=== PATIENT | male | born 1980 ===

== ENCOUNTER 2020-08-06 12:00 | Inpatient (IN) | payer OTHER, SELFPAY ==
[2020-08-06 12:03] VITALS: BP 148/97; PULSE 89; RESP 18; TEMP 37.6; O2SAT 98; BMI 31.7
--- NOTE | 2020-08-06 12:11 | ECG_ITS ---
Test Reason : EPGASTRIC Blood Pressure : / mmHG Vent. Rate : 082 BPM Atrial Rate : 082 BPM P-R Int : 128 ms QRS Dur : 076 ms QT Int : 364 ms P-R-T Axes : 033 030 012 degrees QTc Int : 425 ms Normal sinus rhythm Normal ECG No previous ECGs available Referred By: Generic ED Physician Electronically Signed By:PRAFUL BONNER MD
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
[2020-08-06 14:16] LABS: MANUAL DIFF FLAG NO
[2020-08-06 14:18] LABS: Basophils Percent Auto 0.3 % (0-2); Eosinophils Absolute Auto 0.1 X10*3/uL (0.0-0.4); Eosinophils Percent Auto 0.4 % (0-4); Glucose Urine UA NEG (NEG); Hematocrit 44.2 % (42-52); Imm Gran Abs Auto 0.07 X10*3/uL (0.00-0.03); Imm Gran Pct Auto 0.5 % (0.0-0.4); Leukocyte Esterase Urine NEG (NEG); Lymphocytes Absolute Auto 1.1 X10*3/uL (1.2-4.9); Lymphocytes Percent Auto 8.3 % (20-40); Mean Corpuscular HGB Conc 36.2 g/dl (31.0-36.0); Mean Corpuscular Hemoglobin 31.9 pg (27.0-33.0); Mean Corpuscular Volume 88.2 fL (80-98); Mean Platelet Volume 9.2 fL (9.4-12.4); Monocytes Absolute Auto 0.7 X10*3/uL (0.1-1.2); Neutrophils Absolute Auto 11.5 X10*3/uL (2.0-8.3); Neutrophils Percent Auto 85.5 % (45-73); Nitrite Urine NEG (NEG); PH 5.5 (5.0-8.0); Platelet Count 224 X10*3/uL (160-400); Red Blood Count 5.01 X10*6/uL (4.60-5.80); Red Cell Distribution Width 11.4 % (11.0-16.0); Specific Gravity - Urine 1.025 (1.005-1.025); Urine Blood NEG (NEG); Urine Ketones 5 MG/DL (NEG); Urine Protein TRACE MG/DL (NEG-TRACE); White Blood Count 13.4 X10*3/uL (4.8-10.8)
[2020-08-06 14:19] LABS: Appearance Urine HAZY; Color Urine YELLOW
[2020-08-06 14:26] LABS: Bacteria Urine TRACE /LPF; Mucus Urine 1+ /LPF; RBC Urine 0-2 /HPF (0); Squamous Epithelial Cell Urine 1+ /LPF; WBC Urine 0-2 /HPF (0-4)
[2020-08-06 14:53] LABS: Troponin-I High Sensitivity < 3.5 ng/L (<3.5-35.0)
[2020-08-06] MEDS: 0.9 % Sodium Chloride 500 ML 1000 ML IV (15:00)
[2020-08-06 15:05] LABS: Alanine Aminotransferase 53 U/L (0-40); Albumin Level 4.9 g/dL (3.5-5.0); Alkaline Phosphatase 96 U/L (39-117); Anion Gap 18 (12-20); Aspartate Amino Transferase 23 U/L (5-37); Bilirubin Total 0.5 mg/dL (0.0-1.0); Blood Urea Nitrogen 15 mg/dL (9-16); Calcium 9.5 mg/dL (8.4-10.2); Carbon Dioxide 23 mmol/L (22-29); Chloride 104 mmol/L (96-108); Creatinine Clr Calc Pharmacy 90.5; Estimated Glomerular Filt Rate > 60; Glucose Random 165 mg/dL (60-115); Potassium 4.5 mmol/l (3.3-5.1); Sodium 140 mmol/L (135-145); Total Protein 7.8 g/dL (6.5-8.0)
[2020-08-06 15:24] LABS: Lipase 491 U/L (8-78)
--- NOTE | 2020-08-06 16:00 | CT_ITS ---
EXAMINATION: CT ABDOMEN AND PELVIS WITH CONTRAST CLINICAL INFORMATION: Abdominal pain. Elevated lipase. COMPARISON: Previous abdominal ultrasound October 2007 TECHNIQUE: Multidetector volumetric images were obtained from the superior aspect of the liver through the pubic symphysis following administration 85 mL of Omnipaque 350 intravenous contrast. Sagittal and coronal reformatted images were obtained on the technologist's workstation. Oral contrast: No This CT examination was performed using dose optimization techniques as appropriate, variously including the following: *Automated exposure control *Adjustment of mA and/or kV according to patient size (this includes techniques or standardized protocols for targeted exams where dose is matched to indication/reason for exam; i.e. extremities or head) *Use of iterative reconstruction technique DLP: 602 mGy-cm FINDINGS: LUNG BASES: The visualized lung bases are unremarkable. LIVER, GALLBLADDER, AND BILIARY TREE: The liver is low in attenuation suggestive of fatty infiltration. No focal liver lesion is seen. The liver is slightly enlarged, right lobe measuring 21 cm in length. The gallbladder is normal-appearing. There is no biliary duct dilatation. PANCREAS: The pancreas enhances normally. There is a fat stranding and small up small amount of fluid seen surrounding the head and body of the pancreas suggestive of mild pancreatitis. No pancreatic duct dilatation or fluid collection is seen. SPLEEN: Unremarkable. ADRENAL GLANDS: Unremarkable. KIDNEYS AND URETERS: There is a small low-attenuation lesion in the lower pole right kidney probably representing a cyst. BLADDER: Unremarkable. GASTROINTESTINAL TRACT: The small and large bowel are unremarkable. The appendix is unremarkable. ABDOMINAL WALL: No significant hernia is appreciated. LYMPH NODES: There are no enlarged lymph nodes. There are small peripancreatic, retroperitoneal and small bowel mesentery lymph nodes. VASCULAR: Unremarkable. PELVIC VISCERA: Unremarkable. OSSEOUS STRUCTURES: Unremarkable. CT/CT abdomen pelvis w con IMPRESSION: Mild pancreatitis. Fatty liver.
[2020-08-06] MEDS: iohexoL 350 MG/ML 100 ML INFUS..BTL 85 ML IV (16:45)
[2020-08-06 17:14] VITALS: BP 167/96; PULSE 86; RESP 12; TEMP 36.6; O2SAT 97
[2020-08-06] MEDS: ondansetron HCL 4 MG/2 ML VIAL IVPUSH ×2 (17:38→21:18)
[2020-08-06] MEDS: Morphine Sulfate 4 MG/ML CARTRIDGE IVPUSH (17:38)
[2020-08-06 18:08] LABS: Triglycerides 2403 mg/dL
[2020-08-06 19:18] VITALS: BP 150/94; PULSE 88; RESP 18; TEMP 36.7; O2SAT 98
[2020-08-06 20:23] LABS: Glucose, Whole Blood 151 mg/dL (60-115)
--- NOTE | 2020-08-06 20:30 | PC.NURSE ---
giovanny tamie stating that principal developer specified to start insulin drip at 2units/hr. [facility] is aware of current poc of 151
[2020-08-06] MEDS: Insulin Regular/NS 100 UNIT/100 ML PLAST..BAG IVCONT (20:34)
[2020-08-06 20:42] LABS: SARS COV2 PCR INHOUSE NEGATIVE (Negative)
--- NOTE | 2020-08-06 20:43 | PC.NURSE ---
pt awake and alert, seated in bed and awaiting transport to ICU. pt has patent IV, Insulin drip started at 2 u/hr, confirmed rate with ER provider.
[2020-08-06] MEDS: Dextrose 5 % 1,000 ML 125 ML IVCONT (21:10)
--- NOTE | 2020-08-06 21:14 | PC.NURSE ---
pt began vomiting 15 minutes after starting insulin drip. D5 infusion now running with insulin drip. will check for PRN zofran orders. still awaiting ICU for report.
--- NOTE | 2020-08-06 21:29 | PC.NURSE ---
vomiting stopped, poc 204
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
[2020-08-06 21:50] LABS: Glucose, Whole Blood 204 mg/dL (60-115)
--- NOTE | 2020-08-06 22:36 | PC.NURSE ---
pt transported to floor by BANDAR Rashid
[2020-08-06 22:46] LABS: Glucose, Whole Blood 197 mg/dL (60-115)
[2020-08-06 22:49] VITALS: BP 158/92; PULSE 92; RESP 16; O2SAT 98
[2020-08-06] MEDS: 0.9 % Sodium Chloride Flush 3 ML SYRINGE IVFLUSH (23:49)
[2020-08-06 23:57] LABS: Glucose, Whole Blood 176 mg/dL (60-115)
[2020-08-07] VITALS (23 sets, daily range): BP systolic 117–154; BP diastolic 66–101; PULSE 86–124; RESP 13–24; TEMP 36.4–37.1; O2SAT 95–98; BMI 31.7
[2020-08-07 01:06] LABS: Glucose, Whole Blood 194 mg/dL (60-115)
[2020-08-07 01:55] LABS: Glucose, Whole Blood 194 mg/dL (60-115)
[2020-08-07 03:15] LABS: Glucose, Whole Blood 205 mg/dL (60-115)
[2020-08-07 04:10] LABS: Glucose, Whole Blood 188 mg/dL (60-115)
[2020-08-07] MEDS: Dextrose 5 % 1,000 ML 125 ML IVCONT ×2 (04:59→12:57)
[2020-08-07 05:01] LABS: MANUAL DIFF FLAG NO
[2020-08-07 05:05] LABS: Glucose, Whole Blood 189 mg/dL (60-115)
[2020-08-07 05:10] LABS: Basophils Percent Auto 0.2 % (0-2); Imm Gran Pct Auto 0.6 % (0.0-0.4); Lymphocytes Absolute Auto 0.8 X10*3/uL (1.2-4.9); Lymphocytes Percent Auto 5.1 % (20-40); Mean Corpuscular HGB Conc 34.9 g/dl (31.0-36.0); Mean Corpuscular Hemoglobin 31.1 pg (27.0-33.0); Mean Platelet Volume 9.3 fL (9.4-12.4); Neutrophils Absolute Auto 14.5 X10*3/uL (2.0-8.3); Neutrophils Percent Auto 88.1 % (45-73); Platelet Count 217 X10*3/uL (160-400); Red Blood Count 4.83 X10*6/uL (4.60-5.80); Red Cell Distribution Width 11.7 % (11.0-16.0); White Blood Count 16.4 X10*3/uL (4.8-10.8)
[2020-08-07 06:16] LABS: Glucose, Whole Blood 181 mg/dL (60-115)
[2020-08-07 07:11] LABS: Glucose, Whole Blood 170 mg/dL (60-115)
[2020-08-07 07:46] LABS: Alanine Aminotransferase 41 U/L (0-40); Albumin Level 4.4 g/dL (3.5-5.0); Alkaline Phosphatase 80 U/L (39-117); Anion Gap 16 (12-20); Aspartate Amino Transferase 16 U/L (5-37); Bilirubin Total 0.6 mg/dL (0.0-1.0); Blood Urea Nitrogen 11 mg/dL (9-16); Calcium 9.1 mg/dL (8.4-10.2); Carbon Dioxide 22 mmol/L (22-29); Chloride 100 mmol/L (96-108); Creatinine Clr Calc Pharmacy 105.3; Estimated Glomerular Filt Rate > 60; Glucose Random 195 mg/dL (60-115); Potassium 3.6 mmol/l (3.3-5.1); Sodium 134 mmol/L (135-145); Total Protein 7.1 g/dL (6.5-8.0); Triglycerides 800 mg/dL
[2020-08-07 07:54] LABS: Lipase 936 U/L (8-78)
[2020-08-07 08:21] LABS: Glucose, Whole Blood 147 mg/dL (60-115)
[2020-08-07] MEDS: amLODIPine Besylate 5 MG TABLET PO (08:26)
[2020-08-07 09:10] LABS: Glucose, Whole Blood 162 mg/dL (60-115)
--- NOTE | 2020-08-07 09:51 | P.PNCC_ITS ---
Subjective Subjective Date of Service: 08/07/20 Interval History: 39-year-old male mild hypertensive presents with abdominal pain and CT scan indicates pancreatitis as well as elevated lipase and apparently hypertriglyceridemia co at 12:00 p.m. and responding well to and IV insulin drip with persistently elevated glucose indicating probability of type 2 diabetes but the lipase has now diminished to 800 and symptoms are resolving Physical Exam Vital Signs: Vital Signs: Vital Signs Temp Pulse Resp BP Pulse Ox 08/07/20 08:46 101 H 15 142/97 H 98 08/07/20 08:26 100 130/91 H 08/07/20 08:00 98.4 F 99 16 130/91 H 97 08/07/20 07:00 106 H 16 154/90 H 97 08/07/20 05:53 100 18 145/95 H 96 08/07/20 05:00 92 16 144/92 H 95 08/07/20 04:00 98.4 F 94 16 126/66 95 08/07/20 03:00 88 16 140/89 H 96 08/07/20 02:00 100 13 151/95 H 98 08/07/20 01:48 88 14 128/71 95 08/07/20 01:00 103 H 17 128/71 97 08/07/20 00:00 98.5 F 86 18 146/94 H 96 08/06/20 22:49 92 16 158/92 H 98 08/06/20 19:18 98.0 F 88 18 150/94 H 98 08/06/20 17:14 97.8 F 86 12 167/96 H 97 08/06/20 12:03 99.6 F 89 18 148/97 H 98 Body Mass Index 31.7 Const: Other: awake alert with good cognitive function nonfocal neurologic skin is clear with no wounds no acrocyanosis abdomen relatively benign no guarding no rebound no organomegaly good bilateral carotid upstrokes and no neck vein distension cardiac exam with normal S1 normal S2 and no gallops or murmurs chest percussed equally with no clinical pleural effusion and no adventitious sounds Objective Data Labs CBC & Chem 7: 08/07/20 04:18 08/07/20 04:18 Labs: Laboratory Results - last 24 hr 08/06/20 08/06/20 08/06/20 14:08 14:08 14:08 WBC 13.4 H RBC 5.01 Hgb 16.0 Hct 44.2 MCV 88.2 MCH 31.9 MCHC 36.2 H RDW 11.4 Plt Count 224 MPV 9.2 L Immature Gran % (Auto) 0.5 H Neut % (Auto) 85.5 H Lymph % (Auto) 8.3 L [place] % (Auto) 5.0 Eos % (Auto) 0.4 Baso % (Auto) 0.3 Lymph # (Auto) 1.1 L [place] # (Auto) 0.7 Eos # (Auto) 0.1 Baso # (Auto) 0.0 Abs Immat Gran (auto) 0.07 H Absolute Neuts (auto) 11.5 H Absolute Nucleated RBC 0.000 Nucleated RBC % (auto) 0.0 Sodium 140 Potassium 4.5 Chloride 104 Carbon Dioxide 23 Anion Gap 18 BUN 15 Creatinine 1.07 Estim Creat Clear Calc 90.5 Estimated GFR > 60 POC Glucose Random Glucose 165 H Calcium 9.5 Total Bilirubin 0.5 AST 23 ALT 53 H Alkaline Phosphatase 96 Troponin I High Sens Total Protein 7.8 Albumin 4.9 Triglycerides 2403 Lipase 491 H Urine Color Urine Appearance Urine pH Ur Specific [place] Urine Protein Urine Glucose (UA) Urine Ketones Urine Blood Urine Nitrite Ur Leukocyte Esterase Urine RBC Urine WBC Ur Squamous Epith Cells Urine Bacteria Urine Mucus Coronavirus (PCR) 08/06/20 08/06/20 08/06/20 14:08 14:08 19:37 WBC RBC Hgb Hct MCV MCH MCHC RDW Plt Count MPV Immature Gran % (Auto) Neut % (Auto) Lymph % (Auto) [place] % (Auto) Eos % (Auto) Baso % (Auto) Lymph # (Auto) [place] # (Auto) Eos # (Auto) Baso # (Auto) Abs Immat Gran (auto) Absolute Neuts (auto) Absolute Nucleated RBC Nucleated RBC % (auto) Sodium Potassium Chloride Carbon Dioxide Anion Gap BUN Creatinine Estim Creat Clear Calc Estimated GFR POC Glucose Random Glucose Calcium Total Bilirubin AST ALT Alkaline Phosphatase Troponin I High Sens < 3.5 Total Protein Albumin Triglycerides Lipase Urine Color YELLOW Urine Appearance HAZY Urine pH 5.5 Ur Specific [place] 1.025 Urine Protein TRACE Urine Glucose (UA) NEG Urine Ketones 5 Urine Blood NEG Urine Nitrite NEG Ur Leukocyte Esterase NEG Urine RBC 0-2 Urine WBC 0-2 Ur Squamous Epith Cells 1+ Urine Bacteria TRACE Urine Mucus 1+ Coronavirus (PCR) NEGATIVE 08/06/20 08/06/20 08/06/20 20:20 21:26 22:42 WBC RBC Hgb Hct MCV MCH MCHC RDW Plt Count MPV Immature Gran % (Auto) Neut % (Auto) Lymph % (Auto) [place] % (Auto) Eos % (Auto) Baso % (Auto) Lymph # (Auto) [place] # (Auto) Eos # (Auto) Baso # (Auto) Abs Immat Gran (auto) Absolute Neuts (auto) Absolute Nucleated RBC Nucleated RBC % (auto) Sodium Potassium Chloride Carbon Dioxide Anion Gap BUN Creatinine Estim Creat Clear Calc Estimated GFR POC Glucose 151 H 204 H 197 H Random Glucose Calcium Total Bilirubin AST ALT Alkaline Phosphatase Troponin I High Sens Total Protein Albumin Triglycerides Lipase Urine Color Urine Appearance Urine pH Ur Specific [place] Urine Protein Urine Glucose (UA) Urine Ketones Urine Blood Urine Nitrite Ur Leukocyte Esterase Urine RBC Urine WBC Ur Squamous Epith Cells Urine Bacteria Urine Mucus Coronavirus (PCR) 08/06/20 08/07/20 08/07/20 23:45 01:02 01:50 WBC RBC Hgb Hct MCV MCH MCHC RDW Plt Count MPV Immature Gran % (Auto) Neut % (Auto) Lymph % (Auto) [place] % (Auto) Eos % (Auto) Baso % (Auto) Lymph # (Auto) [place] # (Auto) Eos # (Auto) Baso # (Auto) Abs Immat Gran (auto) Absolute Neuts (auto) Absolute Nucleated RBC Nucleated RBC % (auto) Sodium Potassium Chloride Carbon Dioxide Anion Gap BUN Creatinine Estim Creat Clear Calc Estimated GFR POC Glucose 176 H 194 H 194 H Random Glucose Calcium Total Bilirubin AST ALT Alkaline Phosphatase Troponin I High Sens Total Protein Albumin Triglycerides Lipase Urine Color Urine Appearance Urine pH Ur Specific [place] Urine Protein Urine Glucose (UA) Urine Ketones Urine Blood Urine Nitrite Ur Leukocyte Esterase Urine RBC Urine WBC Ur Squamous Epith Cells Urine Bacteria Urine Mucus Coronavirus (PCR) 08/07/20 08/07/20 08/07/20 03:09 04:01 04:18 WBC 16.4 H RBC 4.83 Hgb 15.0 Hct 43.0 MCV 89.0 MCH 31.1 MCHC 34.9 RDW 11.7 Plt Count 217 MPV 9.3 L Immature Gran % (Auto) 0.6 H Neut % (Auto) 88.1 H Lymph % (Auto) 5.1 L [place] % (Auto) 6.0 Eos % (Auto) 0.0 Baso % (Auto) 0.2 Lymph # (Auto) 0.8 L [place] # (Auto) 1.0 Eos # (Auto) 0.0 Baso # (Auto) 0.0 Abs Immat Gran (auto) 0.10 H Absolute Neuts (auto) 14.5 H Absolute Nucleated RBC 0.000 Nucleated RBC % (auto) 0.0 Sodium Potassium Chloride Carbon Dioxide Anion Gap BUN Creatinine Estim Creat Clear Calc Estimated GFR POC Glucose 205 H 188 H Random Glucose Calcium Total Bilirubin AST ALT Alkaline Phosphatase Troponin I High Sens Total Protein Albumin Triglycerides Lipase Urine Color Urine Appearance Urine pH Ur Specific [place] Urine Protein Urine Glucose (UA) Urine Ketones Urine Blood Urine Nitrite Ur Leukocyte Esterase Urine RBC Urine WBC Ur Squamous Epith Cells Urine Bacteria Urine Mucus Coronavirus (PCR) 08/07/20 08/07/20 08/07/20 04:18 04:58 06:10 WBC RBC Hgb Hct MCV MCH MCHC RDW Plt Count MPV Immature Gran % (Auto) Neut % (Auto) Lymph % (Auto) [place] % (Auto) Eos % (Auto) Baso % (Auto) Lymph # (Auto) [place] # (Auto) Eos # (Auto) Baso # (Auto) Abs Immat Gran (auto) Absolute Neuts (auto) Absolute Nucleated RBC Nucleated RBC % (auto) Sodium 134 L Potassium 3.6 Chloride 100 Carbon Dioxide 22 Anion Gap 16 BUN 11 Creatinine 0.92 Estim Creat Clear Calc 105.3 Estimated GFR > 60 POC Glucose 189 H 181 H Random Glucose 195 H Calcium 9.1 Total Bilirubin 0.6 AST 16 ALT 41 H Alkaline Phosphatase 80 Troponin I High Sens Total Protein 7.1 Albumin 4.4 Triglycerides 800 Lipase 936 H Urine Color Urine Appearance Urine pH Ur Specific [place] Urine Protein Urine Glucose (UA) Urine Ketones Urine Blood Urine Nitrite Ur Leukocyte Esterase Urine RBC Urine WBC Ur Squamous Epith Cells Urine Bacteria Urine Mucus Coronavirus (PCR) 08/07/20 08/07/20 08/07/20 07:09 08:17 09:06 WBC RBC Hgb Hct MCV MCH MCHC RDW Plt Count MPV Immature Gran % (Auto) Neut % (Auto) Lymph % (Auto) [place] % (Auto) Eos % (Auto) Baso % (Auto) Lymph # (Auto) [place] # (Auto) Eos # (Auto) Baso # (Auto) Abs Immat Gran (auto) Absolute Neuts (auto) Absolute Nucleated RBC Nucleated RBC % (auto) Sodium Potassium Chloride Carbon Dioxide Anion Gap BUN Creatinine Estim Creat Clear Calc Estimated GFR POC Glucose 170 H 147 H 162 H Random Glucose Calcium Total Bilirubin AST ALT Alkaline Phosphatase Troponin I High Sens Total Protein Albumin Triglycerides Lipase Urine Color Urine Appearance Urine pH Ur Specific [place] Urine Protein Urine Glucose (UA) Urine Ketones Urine Blood Urine Nitrite Ur Leukocyte Esterase Urine RBC Urine WBC Ur Squamous Epith Cells Urine Bacteria Urine Mucus Coronavirus (PCR) Progress Note: A&P Assessment and plan (1) HTN (hypertension): Status: Acute (2) BRENDON (acute kidney injury): Status: Acute (3) Hypertriglyceridemia: Status: Acute (4) Acute pancreatitis: Problem details: Plan 1.Acute pancreatitis with Hypertriglyceridemia- triglycerides elevated to 2400, lipase is also elevated to [address] showing mild pancreatitis. Patient denies excessive alcohol consumption states he only drinks socially, his LFTs were not significantly elevated. TSH was within normal limits. He is only on amlodipine and fluoxetine for medications, and he is not a diabetic. Unsure as to cause for this acute hypertriglyceridemia. Will continue the insulin protocol. Will hold fluoxetine in case it might have an effect on the triglycerides. Continue to monitor liver function and triglycerides levels. Possible GI consultation in the am BRENDON- most likely related to hypoperfusion, nonoliguric. Continue IV fluid. Continue to check renal induces and urine output Leukocytosis - patient is afebrile, no abnormalities in vital signs, no evidence of acute infection. Will continue to monitor CBC closely. Diet: NPO with sips of water ice chips Critical care time: 60x minutes of critical care time CODE: FULL Status: Acute Assessment and Plan: so the plan is to continue with IV insulin drip until triglycerides are below 500 and then early latter day of diet which will graduate as tolerated and will initiate a statin drug tonight in follow-up we might need the addition of fenofibrate will probably need the diabetic diet Time Spent With Patient Time: Total time spent is greater than 50% in coordination of care (as documented) at patient's floor/unit and/or counseling patient: Total time spent with greater than 50% in coordination of care (as documented) at patient's floor/unit and/or counseling patient:: 30
[2020-08-07 10:17] LABS: Glucose, Whole Blood 167 mg/dL (60-115)
[2020-08-07 11:41] LABS: Glucose, Whole Blood 145 mg/dL (60-115)
[2020-08-07 12:11] LABS: Glucose, Whole Blood 153 mg/dL (60-115)
[2020-08-07] MEDS: Acetaminophen 325 MG TABLET 650 MG PO (13:51)
--- NOTE | 2020-08-07 14:21 | MHC.CM.PN ---
Met with pt to verify demographic information and discuss d/c planning. Pt has a slight delay with information processing and response secondary to TBI. States he resides at home with his mother who is his primary adult day care worker and provider of transportation but also has [employer] services from other family members as well as what sounds like, [facility] RN visits. Pt requests that this CM contact his mother for specific/detailed information Message left for both pt's mother and sister Jones at numbers in [employer] to confirm above as well as to inquire on the availability of his HCP. CM to follow for d/c planning.
[2020-08-07 14:26] LABS: Glucose, Whole Blood 138 mg/dL (60-115)
[2020-08-07 15:11] LABS: Glucose, Whole Blood 129 mg/dL (60-115)
[2020-08-07 16:03] LABS: Glucose, Whole Blood 123 mg/dL (60-115)
[2020-08-07] MEDS: 0.9 % Sodium Chloride Flush 3 ML SYRINGE IVFLUSH (16:04)
[2020-08-07 16:57] LABS: Glucose, Whole Blood 117 mg/dL (60-115)
[2020-08-07 17:59] LABS: Glucose, Whole Blood 130 mg/dL (60-115)
[2020-08-07 18:09] LABS: Triglycerides 441 mg/dL
[2020-08-07] MEDS: Dextrose 5 % and Lactated Ring 1,000 ML 80 ML IVCONT (21:08)
[2020-08-07] MEDS: Atorvastatin Calcium 80 MG TABLET PO (21:08)
[2020-08-07] MEDS: Enoxaparin Sodium 40 MG/0.4 ML SYRINGE SUBCUT (21:09)
[2020-08-07 21:30] LABS: Glucose, Whole Blood 130 mg/dL (60-115)
[2020-08-08] VITALS (7 sets, daily range): BP systolic 147–155; BP diastolic 69–100; PULSE 89–110; RESP 16–19; TEMP 36.4–36.8; O2SAT 95–98
[2020-08-08 06:52] LABS: Estimated Average Glucose 134 mg/dL; Hemoglobin A1c % 6.3 %
[2020-08-08 07:56] LABS: Glucose, Whole Blood 157 mg/dL (60-115)
[2020-08-08 09:06] LABS: MANUAL DIFF FLAG NO
[2020-08-08 09:22] LABS: Basophils Percent Auto 0.3 % (0-2); Eosinophils Absolute Auto 0.2 X10*3/uL (0.0-0.4); Eosinophils Percent Auto 1.4 % (0-4); Hematocrit 41.9 % (42-52); Hemoglobin 14.5 g/dl (14.0-18.0); Imm Gran Abs Auto 0.07 X10*3/uL (0.00-0.03); Imm Gran Pct Auto 0.6 % (0.0-0.4); Lymphocytes Absolute Auto 0.8 X10*3/uL (1.2-4.9); Mean Corpuscular HGB Conc 34.6 g/dl (31.0-36.0); Mean Corpuscular Hemoglobin 31.4 pg (27.0-33.0); Mean Corpuscular Volume 90.7 fL (80-98); Mean Platelet Volume 9.3 fL (9.4-12.4); Monocytes Absolute Auto 0.9 X10*3/uL (0.1-1.2); Monocytes Percent Auto 7.4 % (2-11); Neutrophils Absolute Auto 9.7 X10*3/uL (2.0-8.3); Neutrophils Percent Auto 83.3 % (45-73); Platelet Count 172 X10*3/uL (160-400); Red Blood Count 4.62 X10*6/uL (4.60-5.80); Red Cell Distribution Width 11.9 % (11.0-16.0); White Blood Count 11.7 X10*3/uL (4.8-10.8)
[2020-08-08] MEDS: Dextrose 5 % and Lactated Ring 1,000 ML 80 ML IVCONT (09:39)
[2020-08-08] MEDS: amLODIPine Besylate 5 MG TABLET PO (09:39)
[2020-08-08 09:45] LABS: Anion Gap 12 (12-20); Blood Urea Nitrogen 10 mg/dL (9-16); Calcium 8.8 mg/dL (8.4-10.2); Carbon Dioxide 27 mmol/L (22-29); Chloride 102 mmol/L (96-108); Estimated Glomerular Filt Rate > 60; Glucose Random 158 mg/dL (60-115); Potassium 3.9 mmol/l (3.3-5.1); Sodium 137 mmol/L (135-145)
[2020-08-08 10:07] LABS: Thyroid Stimulating Hormone 1.24 mIU/mL (0.32-4.0)
[2020-08-08 11:59] LABS: Glucose, Whole Blood 151 mg/dL (60-115)
--- NOTE | 2020-08-08 13:52 | MHC.CLN ---
RE:CONSULT COMPLETED FOR DM AND PANCREATITIS SEE TEACHING RECORD
--- NOTE | 2020-08-08 15:52 | MHC.CM.PN ---
Pt being discharged today, home with no services
[2020-08-08 16:07] LABS: Glucose, Whole Blood 116 mg/dL (60-115)
[2020-08-08 16:51] LABS: Lipase 267 U/L (8-78)
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
== END 2020-08-08 20:00 | disposition home or self-care (01) | DRG 440 ==
LOC: HO.ED 19:52 → HO.ICU 20:14 → HO.S3 08-07 18:44
PROVIDERS: Nurse Practitioner Primary Care; Registered Nurse Community Health; Admitting Provider Internal Medicine Cardiovascular Disease; Emergency Provider Internal Medicine; PCP Family Medicine; Visit Provider Hospitalist
DX: K85.00 Idiopathic acute pancreatitis without necrosis or infection (principal); I10 Essential (primary) hypertension; F32.9 Major depressive disorder, single episode, unspecified; Z20.828 Contact with and (suspected) exposure to other viral communicable diseases; E78.1 Pure hyperglyceridemia; Z87.820 Personal history of traumatic brain injury; R73.03 Prediabetes; Z79.899 Other long term (current) drug therapy
CPT/HCPCS: 36415; 74177; 80048; 80053; 81001; 82947; 83036; 83690; 84443; 84478; 84484; 85025; 87635; 93005; 96374; 96375; 99283; 99285; J1650; J2270; J2405; Q9967

== ENCOUNTER → 2020-11-05 09:49 | Outpatient (BNVA) | payer OTHER, SELFPAY | PROVIDERS: PCP Family Medicine; Visit Provider Internal Medicine Endocrinology, Diabetes & Metabolism | DX: E78.1 Pure hyperglyceridemia (principal); R73.03 Prediabetes; E66.9 Obesity, unspecified | CPT/HCPCS: 99202 ==

== ENCOUNTER 2020-11-05 11:00 | Outpatient (REF) | payer OTHER, SELFPAY ==
[2020-11-05 13:55] LABS: Estimated Average Glucose 140 mg/dL; Hemoglobin A1c % 6.5 %
[2020-11-05 14:27] LABS: Cholesterol 148 mg/dL; HDL Cholesterol 28 mg/dL; LDL Cholesterol Calculated 56 mg/dl; Triglycerides 322 mg/dL
[2020-11-06 07:57] LABS: LDL Cholesterol Direct 83 mg/dL (<100)
[2020-11-10 06:32] LABS: Lipoprotein A <10 nmol/L (<75)
[2020-11-12 13:58] LABS: Apolipoprotein B 83 mg/dL (<90)
== END 2020-11-05 11:01 | disposition home or self-care (01) ==
LOC: HO.10HDL 11:00
PROVIDERS: Visit Provider Internal Medicine Endocrinology, Diabetes & Metabolism
DX: E78.1 Pure hyperglyceridemia (principal); R73.03 Prediabetes
CPT/HCPCS: 36415; 80061; 82172; 83036; 83695; 83721

== ENCOUNTER 2020-12-04 14:24 | Outpatient (REF) | payer OTHER, SELFPAY | END 2020-12-04 14:25 | disposition home or self-care (01) | LOC: HO.LAB 14:24 | PROVIDERS: Visit Provider Internal Medicine | DX: Z20.822 Contact with and (suspected) exposure to COVID-19 (principal) | CPT/HCPCS: 36415; C9803; U0003; U0005 ==

== ENCOUNTER 2020-12-12 13:31 | Outpatient (REF) | payer OTHER, SELFPAY | END 2020-12-12 13:32 | disposition home or self-care (01) | LOC: HO.LAB 13:31 | PROVIDERS: Visit Provider Internal Medicine | DX: Z20.822 Contact with and (suspected) exposure to COVID-19 (principal) | CPT/HCPCS: 36415; C9803; U0003; U0005 ==

== ENCOUNTER → 2021-02-04 10:06 | Outpatient (BNVA) | payer OTHER, SELFPAY | PROVIDERS: Visit Provider Internal Medicine Endocrinology, Diabetes & Metabolism | DX: E78.1 Pure hyperglyceridemia (principal); E66.9 Obesity, unspecified; R73.03 Prediabetes | CPT/HCPCS: 99212 ==

== ENCOUNTER 2021-02-04 10:52 | Outpatient (REF) | payer OTHER, SELFPAY ==
[2021-02-04 14:25] LABS: Estimated Average Glucose 131 mg/dL; Hemoglobin A1c % 6.2 %
[2021-02-04 14:48] LABS: Cholesterol 221 mg/dL; HDL Cholesterol 24 mg/dL
[2021-02-04 15:45] LABS: Triglycerides 1259 mg/dL
[2021-02-05 06:52] LABS: LDL Cholesterol Direct 55 mg/dL (<100)
== END 2021-02-04 10:53 | disposition home or self-care (01) ==
LOC: HO.10HDL 10:52
PROVIDERS: Visit Provider Internal Medicine Endocrinology, Diabetes & Metabolism
DX: E78.1 Pure hyperglyceridemia (principal); R73.03 Prediabetes
CPT/HCPCS: 36415; 80061; 83036; 83721

== ENCOUNTER 2021-02-25 11:52 | Outpatient (REF) | payer OTHER, SELFPAY | END 2021-02-25 11:53 | disposition home or self-care (01) | LOC: HO.LAB 11:52 | PROVIDERS: Visit Provider Internal Medicine | DX: Z20.822 Contact with and (suspected) exposure to COVID-19 (principal) | CPT/HCPCS: C9803; U0003; U0005 ==

== ENCOUNTER 2021-06-24 15:06 | Emergency (ER) | payer OTHER, SELFPAY ==
[2021-06-24 15:23] VITALS: BP 153/94; PULSE 89; RESP 16; TEMP 36.9; O2SAT 98; BMI 30.9
[2021-06-24 15:41] LABS: MANUAL DIFF FLAG NO
[2021-06-24 15:45] LABS: Basophils Percent Auto 0.3 % (0-2); Eosinophils Absolute Auto 0.1 X10*3/uL (0.0-0.4); Eosinophils Percent Auto 1.2 % (0-4); Hematocrit 41.5 % (42-52); Hemoglobin 15.1 g/dl (14.0-18.0); Imm Gran Abs Auto 0.05 X10*3/uL (0.00-0.03); Imm Gran Pct Auto 0.5 % (0.0-0.4); Lymphocytes Absolute Auto 1.6 X10*3/uL (1.2-4.9); Lymphocytes Percent Auto 15.4 % (20-40); Mean Corpuscular HGB Conc 36.4 g/dl (31.0-36.0); Mean Corpuscular Hemoglobin 31.6 pg (27.0-33.0); Mean Corpuscular Volume 86.8 fL (80-98); Mean Platelet Volume 9.1 fL (9.4-12.4); Monocytes Absolute Auto 0.7 X10*3/uL (0.1-1.2); Monocytes Percent Auto 6.4 % (2-11); Neutrophils Absolute Auto 7.9 X10*3/uL (2.0-8.3); Neutrophils Percent Auto 76.2 % (45-73); Platelet Count 220 X10*3/uL (160-400); Red Blood Count 4.78 X10*6/uL (4.60-5.80); Red Cell Distribution Width 11.5 % (11.0-16.0); White Blood Count 10.3 X10*3/uL (4.8-10.8)
[2021-06-24 15:56] LABS: Prothrombin Time 11.6 SEC (9.9-13.0)
[2021-06-24 16:00] VITALS: BP 165/96; PULSE 76; RESP 16; TEMP 36.7; O2SAT 99
[2021-06-24 16:11] LABS: Alanine Aminotransferase 38 U/L (0-40); Albumin Level 4.5 g/dL (3.5-5.0); Alkaline Phosphatase 93 U/L (39-117); Anion Gap 13 (12-20); Aspartate Amino Transferase 20 U/L (5-37); Bilirubin Total 0.6 mg/dL (0.0-1.0); Blood Urea Nitrogen 15 mg/dL (9-16); Calcium 9.8 mg/dL (8.4-10.2); Carbon Dioxide 25 mmol/L (22-29); Chloride 105 mmol/L (96-108); Creatinine Clr Calc Pharmacy 89.3; Estimated Glomerular Filt Rate > 60; Glucose Random 172 mg/dL (60-115); Magnesium 2.1 mg/dL (1.6-2.6); Potassium 4.3 mmol/L (3.3-5.1); Sodium 139 mmol/L (135-145)
--- NOTE | 2021-06-24 16:11 | ED_ITS ---
HPI - General Adult General Chief complaint: General Medical Stated complaint: high blood pressure Time Seen by Provider: 06/24/21 15:28 Source: patient Mode of arrival: ambulatory Limitations: no limitations History of Present Illness HPI narrative: 40-year-old male who presents to the emergency department for evaluation of abdominal pain vomiting and elevated blood pressure. Patient states that he woke up this morning with abdominal pain and vomiting. He points to his epigastric area when asked to localize the pain. He describes the pain as a vague in ?pain ?. The pain is constant. The pain is moderate in intensity. He states he has had similar pain in the past. Patient also had nausea and vomited 3 times, he denied any blood in the emesis. The patient states that he checked his blood pressure was high and he was concerned about his symptoms and is high blood pressure therefore came to the emergency department for evaluation. The patient states he does get heartburn symptoms occasionally. He states that he does drink alcohol and he did drink over the weekend. He denied fever, chills, chest pain, shortness of breath, lightheadedness, dizziness, myalgias, arthralgias or changes bowel movements. Related Data Home Medications Medication Instructions Recorded Confirmed amlodipine 5 mg tablet 5 mg PO DAILY 08/06/20 02/04/21 fluoxetine 20 mg capsule 20 mg PO DAILY 08/06/20 02/04/21 blood sugar diagnostic #10 ea 02/04/21 lancets 33 gauge #100 ea 02/04/21 Previous Rx's Medication Instructions Recorded atorvastatin 80 mg tablet 80 mg PO BEDTIME 30 Days #30 tab 02/04/21 omega-3 fatty acids-fish oil 340 2 cap PO BID 30 Days #120 cap 02/04/21 mg-1,000 mg capsule (Fish Oil) fenofibrate 160 mg tablet 160 mg PO DAILY 30 Days #30 tab 02/05/21 omeprazole 20 mg tablet,delayed 20 mg PO DAILY #30 tab 06/24/21 release ondansetron 4 mg disintegrating 4 mg PO Q6-8H PRN #14 tab 06/24/21 tablet Allergies Allergy/AdvReac Type Severity Reaction Status Date / Time No Known Allergies Allergy Verified 08/06/20 12:02 Review of Systems Review of Systems: Yes all other systems are reviewed and are negative PMFSH Past Medical History [facility] Narrative: Social history: He denies tobacco use. He denies drug use. He occasionally drinks alcohol and he did drink alcohol over the weekend. Medical History History of traumatic brain injury HTN (hypertension) Obesity (BMI 30-39.9) Prediabetes Surgical History No pertinent past surgical history Family History Family History Father No problems noted. Mother No problems noted. Social History Social History Household Members: Family Household Members Other:: lives with family Advance Directives: No Advance Directives Information Provided: Yes service: No Current occupational status: unemployed and disabled Current occupation: and disability Physical Exam Vital Signs: Vital Signs: Last Vital Signs Temp 98.4 F 06/24/21 15:23 Pulse 89 06/24/21 15:23 Resp 16 06/24/21 15:23 BP 153/94 H 06/24/21 15:23 Pulse Ox 98 06/24/21 15:23 Body Mass Index 30.9 Const: General: cooperative and no acute distress Orientation/consciousness: oriented to person and oriented to place Limitations: no limitations HENMT: Head: Yes normal to inspection, Yes normocephalic and Yes atraumatic Ears: external ears normal General nose exam: Normal external nose present Face and sinus: Yes normal facial exam Mouth: Normal oral and palatal mucosa present Throat: Yes posterior oropharynx normal Eyes: General: appearance normal, both eyes and all related structures Pupi ls: Equal, round and reactive pupils present Neck: Neck: Yes normal visual inspection, Yes no lymphadenopathy, Yes trachea midline and Yes supple Chest: Chest palpation & inspection: normal inspection of the chest and normal palpation of entire chest wall Resp: Effort & Inspection: normal respiratory effort and able to speak in complete sentences Auscultation: clear to auscultation bilaterally Cardio: Rate: regular rate Rhythm: regular rhythm Heart sounds: S1 normal heart sound present, S2 normal heart sound present and no murmurs GI: Inspection: Yes normal to inspection Palpation (GI): Soft to palpation, Tenderness to palpation present (GI) in the epigastrum (Moderate) and no guarding Auscultation: normal bowel sounds : General: Yes no CVA tenderness Back/Spine/Pelvis: Back: no CVA tenderness Skin: General skin exam: no rashes or lesions noted Neuro: General: oriented to person and oriented to place Cranial nerves: Yes CN's II-XII intact bilaterally and Yes Equal, round and reactive pupils present Cognition (Neuro): normal cognition Motor exam (neuro): 5/5 motor strength present throughout Extrem: General: Yes normal to inspection Psych: Appearance: grossly normal Speech and movement: Normal speech and movement present Affect: normal affect Attitude: cooperative Thought process: Normal thought process present Thought content: Normal thought content present Course Course Course Narrative: 40-year-old male who presents emergency department for evaluation of abdominal pain, vomiting and elevated blood pressure. Vital signs revealed an elevated blood pressure of 153/94 otherwise were unremarkable. The patient's physical examination did reveal tenderness with palpation of his epigastric area otherwise was unremarkable. The patient does have essential hypertension takes Norvasc. The patient presentation is consistent with gastritis, possibly secondary to his alcohol use. I did discuss this with him. Patient was started on omeprazole 20 mg once a day for 1 month. He is also given a prescription for Zofran for nausea and vomiting. Patient was discharged home. Patient was given printed and verbal instructions. Patient was advised to follow-up with his PCP in 2 days and return to emergency department if sympto ms get worse or if he develops any new symptoms that are concerning to him. Medical Decision Making Lab Data Result diagrams: 06/24/21 15:32 06/24/21 15:32 Labs: Lab Results 06/24/21 06/24/21 06/24/21 Range/Units 15:32 15:32 15:32 WBC (4.8-10.8) X10*3/uL RBC (4.60-5.80) X10*6/uL Hgb (14.0-18.0) g/dl Hct (42-52) % MCV (80-98) fL MCH (27.0-33.0) pg MCHC (31.0-36.0) g/dl RDW (11.0-16.0) % Plt Count (160-400) X10*3/uL MPV (9.4-12.4) fL Immature Gran % (Auto) (0.0-0.4) % Neut % (Auto) (45-73) % Lymph % (Auto) (20-40) % [place] % (Auto) (2-11) % Eos % (Auto) (0-4) % Baso % (Auto) (0-2) % Lymph # (Auto) (1.2-4.9) X10*3/uL [place] # (Auto) (0.1-1.2) X10*3/uL Eos # (Auto) (0.0-0.4) X10*3/uL Baso # (Auto) (0.0-0.2) X10*3/uL Abs Immat Gran (auto) (0.00-0.03) X10*3/uL Absolute Neuts (auto) (2.0-8.3) X10*3/uL Absolute Nucleated RBC (0.0-0.012) X10*3/uL Nucleated RBC % (auto) (0.0-0.2) /100WBC Hold Purple Top SEE NOTE PT 11.6 (9.9-13.0) SEC INR 1.0 (0.9-1.1) Sodium 139 (135-145) mmol/L Potassium 4.3 (3.3-5.1) mmol/L Chloride 105 (96-108) mmol/L Carbon Dioxide 25 (22-29) mmol/L Anion Gap 13 (12-20) BUN 15 (9-16) mg/dL Creatinine 1.06 (0.5-1.4) mg/dL Estim Creat Clear Calc 89.3 Estimated GFR > 60 Random Glucose 172 H (60-115) mg/dL Calcium 9.8 D (8.4-10.2) mg/dL Magnesium 2.1 (1.6-2.6) mg/dL Total Bilirubin 0.6 (0.0-1.0) mg/dL AST 20 (5-37) U/L ALT 38 (0-40) U/L Alkaline Phosphatase 93 (39-117) U/L Total Protein 8.0 (6.5-8.0) g/dL Albumin 4.5 (3.5-5.0) g/dL 06/24/21 Range/Units 15:32 WBC 10.3 (4.8-10.8) X10*3/uL RBC 4.78 (4.60-5.80) X10*6/uL Hgb 15.1 (14.0-18.0) g/dl Hct 41.5 L (42-52) % MCV 86.8 (80-98) fL MCH 31.6 (27.0-33.0) pg MCHC 36.4 H (31.0-36.0) g/dl RDW 11.5 (11.0-16.0) % Plt Count 220 D (160-400) X10*3/uL MPV 9.1 L (9.4-12.4) fL Immature Gran % (Auto) 0.5 H (0.0-0.4) % Neut % (Auto) 76.2 H (45-73) % Lymph % (Auto) 15.4 L (20-40) % [place] % (Auto) 6.4 (2-11) % Eos % (Auto) 1.2 (0-4) % Baso % (Auto) 0.3 (0-2) % Lymph # (Auto) 1.6 (1.2-4.9) X10*3/uL [place] # (Auto) 0.7 (0.1-1.2) X10*3/uL Eos # (Auto) 0.1 (0.0-0.4) X10*3/uL Baso # (Auto) 0.0 (0.0-0.2) X10*3/uL Abs Immat Gran (auto) 0.05 H (0.00-0.03) X10*3/uL Absolute Neuts (auto) 7.9 (2.0-8.3) X10*3/uL Absolute Nucleated RBC 0.000 (0.0-0.012) X10*3/uL Nucleated RBC % (auto) 0.0 (0.0-0.2) /100WBC Hold Purple Top PT (9.9-13.0) SEC INR (0.9-1.1) Sodium (135-145) mmol/L Potassium (3.3-5.1) mmol/L Chloride (96-108) mmol/L Carbon Dioxide (22-29) mmol/L Anion Gap (12-20) BUN (9-16) mg/dL Creatinine (0.5-1.4) mg/dL Estim Creat Clear Calc Estimated GFR Random Glucose (60-115) mg/dL Calcium (8.4-10.2) mg/dL Magnesium (1.6-2.6) mg/dL Total Bilirubin (0.0-1.0) mg/dL AST (5-37) U/L ALT (0-40) U/L Alkaline Phosphatase (39-117) U/L Total Protein (6.5-8.0) g/dL Albumin (3.5-5.0) g/dL Discharge Plan Discharge Clinical Impression: Essential (primary) hypertension Gastritis Qualifiers: Gastritis type: unspecified gastritis Chronicity: acute Gastritis bleeding: without bleeding Qualified Code(s): K29.00 - Acute gastritis without bleeding Vomiting Qualifiers: Vomiting type: unspecified Vomiting Intractability: non-intractable Nausea presence: with nausea Qualified Code(s): R11.2 - Nausea with vomiting, unspecified Instructions: Gastritis (ED) Additional Instructions: Your blood work today was normal which is reassuring. Your blood pressure was only slightly elevated. You should get a home blood pressure cuff and check your blood pressure in the morning on Wednesday, Wednesday and Wednesday for the next 2 weeks. Write these blood pressures down. Do not worry about the readings. You should then follow-up with her doctor in 2 weeks to discuss your blood pressure medications. Your blood pressure did not cause your symptoms of abdominal pain and vomiting. Your abdominal pain vomiting or secondary to inflammation of your stomach (gastritis). This can sometimes be related to drinking alcohol. Do not drink any alcohol. Take Prilosec (omeprazole) 20 mg pills, 1 pill once a day for 1 month. This medication will shut off your acid production and help your stomach heal. Take Zofran (ondansetron) 4 mg, take 1 pill every 8 hours as needed for nausea and vomiting. Follow-up with your doctor in 2 days. Please return to the emergency department if your symptoms get worse or if you develop any symptoms that are concerning to you. Prescriptions: New ondansetron 4 mg tablet,disintegrating 4 mg PO Q6-8H PRN (Reason: nausea and vomiting) Qty: 14 RF: 0 omeprazole 20 mg tablet,delayed release (DR/EC) 20 mg PO DAILY Qty: 30 RF: 0 No Action fenofibrate 160 mg tablet 160 mg PO DAILY 30 Days Qty: 30 RF: 7 amlodipine 5 mg Tablet 5 mg PO DAILY RF: 0 fluoxetine 20 mg Capsule 20 mg PO DAILY RF: 0 atorvastatin 80 mg tablet 80 mg PO BEDTIME 30 Days Qty: 30 RF: 6 Fish Oil 340-1,000 mg capsule 2 cap PO BID 30 Days Qty: 120 RF: 6
[2021-06-24 16:46] VITALS: BP 145/86; PULSE 89; RESP 19; TEMP 36.7; O2SAT 97
== END 2021-06-24 16:48 | disposition home or self-care (01) ==
PROVIDERS: Physician Assistant Medical; Emergency Provider Emergency Medicine Emergency Medical Services; PCP Family Medicine
DX: K29.00 Acute gastritis without bleeding (principal); R11.2 Nausea with vomiting, unspecified; I10 Essential (primary) hypertension; Z79.899 Other long term (current) drug therapy
CPT/HCPCS: 36415; 80053; 83735; 85025; 85610; 99283; 99284

== ENCOUNTER 2021-09-26 08:38 | Outpatient (REF) | payer OTHER, SELFPAY ==
[2021-09-26 10:16] LABS: COVID-19 Test Negative (Negative); IDNOW Serial# 16C4AD1C
== END 2021-09-26 08:39 | disposition home or self-care (01) ==
LOC: HO.LAB 08:38
PROVIDERS: Visit Provider Internal Medicine
DX: Z20.822 Contact with and (suspected) exposure to COVID-19 (principal)
CPT/HCPCS: 36415; 87635; C9803

== ENCOUNTER 2021-11-27 06:51 | Outpatient (REF) | payer OTHER, SELFPAY ==
[2021-11-27 07:21] LABS: Estimated Average Glucose 174 mg/dL; Hemoglobin A1c % 7.7 %
[2021-11-27 07:34] LABS: Alanine Aminotransferase 39 U/L (0-40); Albumin Level 4.7 g/dL (3.5-5.0); Alkaline Phosphatase 77 U/L (39-117); Anion Gap 12 (12-20); Aspartate Amino Transferase 17 U/L (5-37); Bilirubin Total 0.9 mg/dL (0.0-1.0); Blood Urea Nitrogen 18 mg/dL (9-16); Calcium 11.2 mg/dL (8.4-10.2); Carbon Dioxide 29 mmol/L (22-29); Chloride 104 mmol/L (96-108); Cholesterol 132 mg/dL; Estimated Glomerular Filt Rate > 60; Glucose Fasting 209 mg/dL (60-99); HDL Cholesterol 27 mg/dL; LDL Cholesterol Calculated 57 mg/dl; Potassium 4.4 mmol/L (3.3-5.1); Sodium 141 mmol/L (135-145); Total Protein 7.6 g/dL (6.5-8.0); Triglycerides 243 mg/dL
[2021-11-29 00:22] LABS: LDL Cholesterol Direct 69 mg/dL (<100)
== END 2021-11-27 06:52 | disposition home or self-care (01) ==
LOC: HO.LAB 06:51
PROVIDERS: Visit Provider Internal Medicine Endocrinology, Diabetes & Metabolism
DX: E78.1 Pure hyperglyceridemia (principal); E11.65 Type 2 diabetes mellitus with hyperglycemia; Z79.899 Other long term (current) drug therapy
CPT/HCPCS: 36415; 80053; 80061; 83036; 83721; 99212

== ENCOUNTER 2022-03-19 08:28 | Emergency (ER) | payer OTHER, SELFPAY ==
--- NOTE | ~2022-03-19 | XR_ITS ---
EXAMINATION: XR FEMUR, LEFT CLINICAL INFORMATION: Left femur pain. COMPARISON: None TECHNIQUE: AP and lateral views of the left femur were obtained. FINDINGS: The bones and soft tissues are normal. No fracture. No osseous lesions. XR/XR femur LT 2V IMPRESSION: Unremarkable left femur.
--- NOTE | ~2022-03-19 | US_ITS ---
EXAMINATION: US VENOUS ULTRASOUND WITH DOPPLER LOWER EXTREMITY, LEFT CLINICAL INFORMATION: Left lower extremity pain. COMPARISON: None TECHNIQUE: Ultrasound of the deep veins is performed from the hip to the calf with compression sonography and color and pulse Doppler assessment. Spectral analysis with color-flow imaging is performed. FINDINGS: There is normal venous compression and respiratory variation and augmented flow. The visualized common femoral vein, superficial femoral vein, profunda femoral vein, popliteal vein, and the trifurcation region shows no evidence of deep venous thrombosis. There is no significant popliteal fossa cyst. If the patient's symptoms persist, followup ultrasound in 5 days 7 days might be of value to exclude proximal propagation from a non-visualized calf vein. US/US venous duplex LE LT IMPRESSION: No DVT demonstrated in the left lower extremity.
[2022-03-19 08:37] VITALS: BP 131/86; BP 134/80; PULSE 102; PULSE 97; RESP 18; TEMP 36.6; O2SAT 98; BMI 28.5
--- NOTE | 2022-03-19 09:20 | ED.LOWEXIN ---
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 Been having left lower extremities pain for 2 months had medical workup as per patient done at different hospital, patient was prescribed cane to walk with for 2 months, patient declined any trauma or falls or injury to the left lower extremities patient somewhat is a limited historian, patient stated since 02:00 o'clock in the morning been having severe pain and left upper thigh, still able to ambulate with a cane, declined trauma or anything happen to his left lower extremities, no fever, no chills. Describe it as severe pain 7/10, localized to the anterior of the left thigh, no radiation, more with movement, no relieving factor. Related Data Home Medications Medication Instructions Recorded Confirmed amlodipine 5 mg tablet 5 mg PO DAILY 08/06/20 11/27/21 fluoxetine 20 mg capsule 20 mg PO DAILY 08/06/20 11/27/21 blood sugar diagnostic #10 ea 02/04/21 11/27/21 lancets 33 gauge #100 ea 02/04/21 11/27/21 Previous Rx's Medication Instructions Recorded atorvastatin 80 mg tablet 80 mg PO BEDTIME 30 days #30 tabs 02/04/21 omega-3 fatty acids-fish oil 340 2 cap PO BID 30 days #120 caps 02/04/21 mg-1,000 mg capsule (Fish Oil) fenofibrate 160 mg tablet 160 mg PO DAILY 30 days #30 tabs 02/05/21 omeprazole 20 mg tablet,delayed 20 mg PO DAILY #30 tabs 06/24/21 release ondansetron 4 mg disintegrating 4 mg PO Q6-8H PRN nausea and 06/24/21 tablet vomiting #14 tabs Allergies Allergy/AdvReac Type Severity Reaction Status Date / Time No Known Allergies Allergy Verified 11/27/21 07:53 Review of Systems Review of Systems: All other systems are reviewed and are negative Constitutional: Reports as per HPI and Reports no additional constitutional complaints Eyes: Reports as per HPI and Reports no additional eye complaints Reports system reviewed and no additional complaints, except as documented Cardiovascular: Reports as per HPI and Reports no additional cardiovascular complaints Respiratory: Reports as per HPI and Reports no additional respiratory complaints Gastrointestinal: Reports as per HPI and Reports no additional gastrointestinal complaints Genitourinary: Reports no additional female genitourinary complaints Musculoskeletal: Reports no additional musculoskeletal complaints Skin/Breast: Reports system reviewed and no additional complaints, except as docu Psychiatric: Reports no additional psychiatric complaints Endocrine: Reports no additional endocrine complaints Hematologic/Lymphatic: Reports no additional hematologic/lymphatic complaints Allergic/Immunologic: Reports no additional allergic/immunologic complaints Reports system reviewed and no additional complaints, except as documented and Reports Abnormal speech present [facility] Past Medical History Medical History History of traumatic brain injury HTN (hypertension) Obesity (BMI 30-39.9) Prediabetes Surgical History No pertinent past surgical history Family History Family History Father No problems noted. Mother No problems noted. Social History Social History Household Members: Family Household Members Other:: lives with family Alcohol intake: current Alcohol intake frequency: holidays/special occasions only Patient Tobacco Use Status: Never used Tobacco Use of substances other than those prescribed or required for medical reasons: No Advance Directives: No Advance Directives Information Provided: No service: No Current occupational status: unemployed and disabled Current occupation: and disability Physical Exam Vital Signs: Vital Signs: Last Vital Signs Temp 97.9 F 03/19/22 08:37 Pulse 89 03/19/22 11:10 Resp 18 03/19/22 11:10 BP 139/81 03/19/22 11:10 Pulse Ox 98 03/19/22 11:10 O2 Del Method 03/19/22 11:10 BMI result Body Mass Index 28.5 Vital signs have been reviewed as appeared to be correct. Blood pressure normal. Heart rate normal. Respiration rate normal. Temperature normal. Oxygen saturation normal. Appearance: Alert. Oriented X3. No acute distress. Head: Normal external exam. Normocephalic. Atraumatic. No Ortiz signs noted. No raccoon eyes noted Eyes: PERRLA. EOMI. Conjunctiva and sclera normal. Eyelids normal. ENT: TM's Normal. Pharynx normal. Uvula midline. Moist mucous membranes. No trismus noted. No drooling noted. No muffled voice noted. Neck: Normal inspection. Neck supple. FROM. No adenopathy. Thyroid Normal. No meningeal signs. No neck mass noted. CVS: Normal heart rate and rhythm. Heart sound normal. No murmurs noted. Pulses normal throughout. Respiratory: No respiratory distress. Painless inspiration. Breath sounds normal. No wheezes/rales/rhonchi noted. Chest nontender. No accessory muscle usage noted or decreased air movement noted. Abdomen: Soft and nontender. Bowel sounds normal in all 4 quadrants. No distention noted. No organomegaly noted. No visible injury noted. Back: No CVA tenderness. Full range of motion noted. Skin: Skin warm and dry. Normal skin color. Normal skin turgor. No rashes/lesions/lacerations noted. Extremities: No lower extremity edema. Extremities exhibit normal range of motion. Extremities nontender. Neuro: Oriented X 3. Cranial nerve exam: II-XII are grossly intact No motor deficit. No sensory deficit. Reflexes normal. Course Course Course Narrative: Assessment and plan. 41-year-old male came in for evaluation of left thigh pain, pain is been going on for 2 months but gotten worse last night, patient appeared comfortable in the emergency department despite saying pain is 7/10. Able to ambulate with a cane as he normally does, physical exam labs ruled out rhabdomyolysis, DVT, or any osseous injury. Normal WBCs with left shift (chronic left shifting, but no obvious source of infection). MDM - Extremity Injury (Lower) Lab Data Attestation: I reviewed the patient's lab results. Result diagrams: 03/19/22 09:28 03/19/22 09:28 Labs: Lab Results 03/19/22 03/19/22 03/19/22 Range/Units 09:28 09:28 11:29 WBC 9.9 (4.8-10.8) X10*3/uL RBC 4.32 L (4.60-5.80) X10*6/uL Hgb 13.4 L (14.0-18.0) g/dl Hct 38.2 L (42.0-52.0) % MCV 88.4 (80.0-98.0) fL MCH 31.0 (27.0-33.0) pg MCHC 35.1 (31.0-36.0) g/dl RDW 12.1 (11.0-16.0) % Plt Count 174 (160-400) X10*3/uL MPV 8.8 L (9.4-12.4) fL Immature Gran % (Auto) 0.7 H (0.0-0.4) % Neut % (Auto) 80.2 H (45-73) % Lymph % (Auto) 14.2 L (20-40) % [place] % (Auto) 4.3 (2-11) % Eos % (Auto) 0.3 (0-4) % Baso % (Auto) 0.3 (0-2) % Lymph # (Auto) 1.4 (1.2-4.9) X10*3/uL [place] # (Auto) 0.4 (0.1-1.2) X10*3/uL Eos # (Auto) 0.0 (0.0-0.4) X10*3/uL Baso # (Auto) 0.0 (0.0-0.2) X10*3/uL Abs Immat Gran (auto) 0.07 H (0.00-0.03) X10*3/uL Absolute Neuts (auto) 8.0 (2.0-8.3) x10*3/uL Absolute Nucleated RBC 0.000 (0.0-0.012) X10*3/uL Nucleated RBC % (auto) 0.0 (0.0-0.2) /100WBC Sodium 142 (135-145) mmol/L Potassium 3.8 (3.3-5.1) mmol/L Chloride 109 H (96-108) mmol/L Carbon Dioxide 21 L (22-29) mmol/L Anion Gap 16 (12-20) BUN 15 (9-16) mg/dL Creatinine 0.80 (0.5-1.4) mg/dL Estim Creat Clear Calc 113.0 Estimated GFR > 60 Random Glucose 165 H (60-115) mg/dL Calcium 8.8 D (8.4-10.2) mg/dL Total Bilirubin 0.3 (0.0-1.0) mg/dL Direct Bilirubin < 0.2 (0.0-0.5) mg/dL AST 22 (5-37) U/L ALT 41 H (0-40) U/L Alkaline Phosphatase 82 (39-117) U/L Total Creatine Kinase 296 H (38-174) U/L Total Protein 6.9 (6.5-8.0) g/dL Albumin 4.3 (3.5-5.0) g/dL Lipase 53 (8-78) U/L Urine Color YELLOW Urine Appearance CLEAR Urine pH 5.5 (5.0-8.0) Ur Specific [place] >= 1.030 H (1.005-1.025) Urine Protein NEG (NEG-TRACE) MG/DL Urine Glucose (UA) 100 H (NEG) MG/DL Urine Ketones NEG (NEG) MG/DL Urine Blood NEG (NEG) Urine Nitrite NEG (NEG) Ur Leukocyte Esterase NEG (NEG) Imaging Data Left lower extremities ultrasound.: Attestation: I personally reviewed and interpreted this imaging study as follows: Radiologist's impression: No DVT demonstrated in the left lower extremity. Left femur x-ray: Attestation: I personally reviewed and interpreted this imaging study as follows: Radiologist's impression: 1.? Coarsened interstitial lung markings throughout the bilateral lung sorenson, nonspecific, may represent severe emphysematous changes versus interstitial lung disease versus prominence of the pulmonary vasculature. 2.? Bibasilar atelectasis. 3.? Biapical pleural parenchymal scarring. 4.? Bilateral pleural effusions, trace on the right and small on the left. ? Discharge Plan Discharge Clinical Impression: Chronic myofascial pain Patient Disposition: Home, Self-Care Instructions: Chronic Pain (ED) Prescriptions: No Action fenofibrate 160 mg tablet 160 mg PO DAILY 30 Days Qty: 30 7RF Rx Instructions: Dose increased ondansetron 4 mg tablet,disintegrating 4 mg PO Q6-8H PRN (Reason: nausea and vomiting) Qty: 14 0RF omeprazole 20 mg tablet,delayed release (DR/EC) 20 mg PO DAILY Qty: 30 0RF amlodipine 5 mg Tablet 5 mg PO DAILY fluoxetine 20 mg Capsule 20 mg PO DAILY atorvastatin 80 mg tablet 80 mg PO BEDTIME 30 Days Qty: 30 6RF Fish Oil 340-1,000 mg capsule 2 cap PO BID 30 Days Qty: 120 6RF (DME) lancets 33 gauge misc See Rx Instructions Not Applicable BID Qty: 100 Rx Instructions: As directed (DME) FreeStyle Lite Strips Strip See Rx Instructions Not Applicable BID Qty: 10 Rx Instructions: As directed Referrals: Caprice Purdy MD [Primary Care Provider] -
[2022-03-19 09:37] LABS: MANUAL DIFF FLAG NO
[2022-03-19 09:47] LABS: Basophils Percent Auto 0.3 % (0-2); Eosinophils Percent Auto 0.3 % (0-4); Hematocrit 38.2 % (42.0-52.0); Hemoglobin 13.4 g/dl (14.0-18.0); Imm Gran Abs Auto 0.07 X10*3/uL (0.00-0.03); Imm Gran Pct Auto 0.7 % (0.0-0.4); Lymphocytes Absolute Auto 1.4 X10*3/uL (1.2-4.9); Lymphocytes Percent Auto 14.2 % (20-40); Mean Corpuscular HGB Conc 35.1 g/dl (31.0-36.0); Mean Corpuscular Volume 88.4 fL (80.0-98.0); Mean Platelet Volume 8.8 fL (9.4-12.4); Monocytes Absolute Auto 0.4 X10*3/uL (0.1-1.2); Monocytes Percent Auto 4.3 % (2-11); Neutrophils Percent Auto 80.2 % (45-73); Platelet Count 174 X10*3/uL (160-400); Red Blood Count 4.32 X10*6/uL (4.60-5.80); Red Cell Distribution Width 12.1 % (11.0-16.0); White Blood Count 9.9 X10*3/uL (4.8-10.8)
[2022-03-19 09:55] LABS: Alanine Aminotransferase 41 U/L (0-40); Albumin Level 4.3 g/dL (3.5-5.0); Alkaline Phosphatase 82 U/L (39-117); Anion Gap 16 (12-20); Aspartate Amino Transferase 22 U/L (5-37); Bilirubin Direct < 0.2 mg/dL (0.0-0.5); Bilirubin Total 0.3 mg/dL (0.0-1.0); Blood Urea Nitrogen 15 mg/dL (9-16); Calcium 8.8 mg/dL (8.4-10.2); Carbon Dioxide 21 mmol/L (22-29); Chloride 109 mmol/L (96-108); Estimated Glomerular Filt Rate > 60; Glucose Random 165 mg/dL (60-115); Lipase 53 U/L (8-78); Potassium 3.8 mmol/L (3.3-5.1); Sodium 142 mmol/L (135-145); Total Protein 6.9 g/dL (6.5-8.0)
[2022-03-19] MEDS: Ibuprofen 600 MG TABLET PO (11:09)
[2022-03-19 11:10] VITALS: BP 139/81; PULSE 89; RESP 18; O2SAT 98
[2022-03-19 11:41] LABS: Appearance Urine CLEAR; Color Urine YELLOW; Glucose Urine UA 100 MG/DL (NEG); Leukocyte Esterase Urine NEG (NEG); Nitrite Urine NEG (NEG); PH 5.5 (5.0-8.0); Specific Gravity - Urine >= 1.030 (1.005-1.025); Urine Blood NEG (NEG); Urine Ketones NEG (NEG); Urine Protein NEG (NEG-TRACE)
[2022-03-19 13:36] VITALS: BP 134/81; PULSE 87; RESP 18; TEMP 36.9; O2SAT 98
== END 2022-03-19 13:38 | disposition home or self-care (01) ==
PROVIDERS: Emergency Provider Emergency Medicine; PCP Family Medicine
DX: G89.29 Other chronic pain (principal); M79.18 Myalgia, other site; M79.605 Pain in left leg; I10 Essential (primary) hypertension; Z87.820 Personal history of traumatic brain injury
CPT/HCPCS: 36415; 73552; 80048; 80076; 81003; 82550; 83690; 85025; 93971; 99284

== ENCOUNTER 2022-09-08 18:22 | Emergency (ER) | payer OTHER, SELFPAY | END 2022-09-08 19:45 | disposition left against medical advice (07) | PROVIDERS: Emergency Provider Emergency Medicine; PCP Family Medicine | DX: R10.9 Unspecified abdominal pain (principal) ==

== ENCOUNTER 2022-10-05 14:50 | Emergency (ER) | payer OTHER, SELFPAY ==
[2022-10-05 15:01] VITALS: BP 162/99; BP 170/104; PULSE 80; PULSE 82; RESP 16; O2SAT 97; O2SAT 98; BMI 29.9
--- NOTE | 2022-10-05 15:01 | ECG_ITS ---
Test Reason : EPIGASTRIC PAIN Blood Pressure : / mmHG Vent. Rate : 087 BPM Atrial Rate : 087 BPM P-R Int : 132 ms QRS Dur : 082 ms QT Int : 364 ms P-R-T Axes : 025 051 020 degrees QTc Int : 438 ms Normal sinus rhythm Normal ECG When compared with ECG of 06-AUG-2020 12:12, No significant change was found Referred By: Luis Abraham Electronically Signed By:Sam Fernandes
--- NOTE | 2022-10-05 15:03 | ED.ABDPAIN ---
HPI - Abdominal Pain General Chief Complaint: Abdominal Pain Stated Complaint: NAUSEA, VOMITING, ABD PAIN Time Seen by Provider: 10/05/22 14:54 Source: patient and EMS History of Present Illness HPI narrative: Patient with intractable vomiting which started this morning at 07:00. No diarrhea. Positive epigastric pain. Pain does not radiate. He states he has had in the past, but does not know the cause. He has a history of prediabetes, gastritis, pancreatitis, He denies tobacco and marijuana. Positive alcohol. States he states he drank more than normal 2 days ago. No alleviating or exacerbating factors at this point. Related Data Home Medications Medication Instructions Recorded Confirmed amlodipine 5 mg tablet 5 mg PO DAILY 08/06/20 11/27/21 fluoxetine 20 mg capsule 20 mg PO DAILY 08/06/20 11/27/21 blood sugar diagnostic #10 ea 02/04/21 11/27/21 lancets 33 gauge #100 ea 02/04/21 11/27/21 Previous Rx's Medication Instructions Recorded atorvastatin 80 mg tablet 80 mg PO BEDTIME 30 days #30 tabs 02/04/21 omega-3 fatty acids-fish oil 340 2 cap PO BID 30 days #120 caps 02/04/21 mg-1,000 mg capsule (Fish Oil) fenofibrate 160 mg tablet 160 mg PO DAILY 30 days #30 tabs 02/05/21 omeprazole 20 mg tablet,delayed 20 mg PO DAILY #30 tabs 06/24/21 release ondansetron 4 mg disintegrating 4 mg PO Q6-8H PRN nausea and 06/24/21 tablet vomiting #14 tabs omeprazole 20 mg capsule,delayed 20 mg PO DAILY #30 caps 10/05/22 release ondansetron 4 mg disintegrating 4 mg PO Q8H PRN nausea and 10/05/22 tablet vomiting #14 tabs Allergies Allergy/AdvReac Type Severity Reaction Status Date / Time No Known Allergies Allergy Verified 11/27/21 07:53 Review of Systems Comments: no documented fevers but states feeling hot and cold Comments: no chest pain Comments: no cough for dyspnea Comments: abdominal pain with nausea vomiting. No diarrhea or constipation Comments: no injuries Comments: no rash Comments: no focal weakness PMFSH Past Medical History Medical History History of traumatic brain injury HTN (hypertension) Obesity (BMI 30-39.9) Prediabetes Surgical History No pertinent past surgical history Family History Family History Father No problems noted. Mother No problems noted. Social History Social History Household Members: Family Household Members Other:: lives with family Alcohol intake: current Alcohol intake frequency: holidays/special occasions only Patient Tobacco Use Status: Never used Tobacco Advance Directives: No Advance Directives Information Provided: No service: No Current occupational status: unemployed and disabled Current occupation: and disability Physical Exam ED Vital Signs: Vital Signs - 24 hr 10/05/22 15:01 10/05/22 15:06 10/05/22 17:41 Pulse Rate 80 87 83 Respiratory Rate 16 16 16 Blood Pressure 162/99 H 162/99 H 161/97 H Pulse Oximetry 97 98 96 Oxygen Delivery Method Room Air Room Air Room Air BMI result Body Mass Index 29.9 Const Other: awake and alert. Nontoxic appearing. HENMT Other: mucosa moist Resp Other: Clear and equal bilaterally without wheezes rales or rhonchi. Good air entry Cardio Other: regular rate rhythm without murmurs rubs or gallops GI Other: soft nondistended. Tender epigastrium without guarding or rebound. Remainder of abdomen nontender Skin Other: warm pink and dry without rash Neuro Other: no obvious focal neuro deficits Course Course Course Narrative: 16:52. Patient is feeling significantly better after IV fluids and medication. CBC shows white count of 13.5. Electrolytes and lipase pending. Urinalysis shows glucose and protein but no other significant abnormalities Serology pending 17:47. Lipase is 421. He has a history of pancreatitis and has had enzyme elevation higher than this in the past. Re-evaluation shows he is feeling much better and has been able to drink liquids. It is unclear if this is just reactive or represents primary pancreatitis. Will treat with clear liquid diet for the next several days. Stable for discharge home on Prilosec and Zofran. Medical Decision Making Medical Decision Making MDM Narrative: patient with epigastric pain and vomiting. Differential diagnosis includes pancreatitis, gastritis, gastroenteritis, dehydration, hepatitis, biliary colic. Will treat with IV fluids, IV Zofran. IV Pepcid. GI cocktail. Diagnostics for now to include blood work, EKG, x-ray. Will add CT scan if no significant improvement Lab Data Result Diagrams: 10/05/22 15:25 10/05/22 15:25 Labs: Lab Results 10/05/22 10/05/22 10/05/22 Range/Units 15:25 15:25 15:25 WBC 13.5 H (4.8-10.8) X10*3/uL RBC 4.93 (4.60-5.80) X10*6/uL Hgb 14.4 (14.0-18.0) g/dl Hct 42.8 (42.0-52.0) % MCV 86.8 (80.0-98.0) fL MCH 29.2 (27.0-33.0) pg MCHC 33.6 (31.0-36.0) g/dl RDW 11.7 (11.0-16.0) % Plt Count 216 (160-400) X10*3/uL MPV 10.1 (9.4-12.4) fL Immature Gran % (Auto) 0.7 H (0.0-0.4) % Neut % (Auto) 91.0 H (45-73) % Lymph % (Auto) 4.5 L (20-40) % [place] % (Auto) 3.6 (2-11) % Eos % (Auto) 0.1 (0-4) % Baso % (Auto) 0.1 (0-2) % Lymph # (Auto) 0.6 L (1.2-4.9) X10*3/uL [place] # (Auto) 0.5 (0.1-1.2) X10*3/uL Eos # (Auto) 0.0 (0.0-0.4) X10*3/uL Baso # (Auto) 0.0 (0.0-0.2) X10*3/uL Abs Immat Gran (auto) 0.09 H (0.00-0.03) X10*3/uL Absolute Neuts (auto) 12.2 H (2.0-8.3) x10*3/uL Absolute Nucleated RBC 0.000 (0.0-0.012) X10*3/uL Nucleated RBC % (auto) 0.0 (0.0-0.2) /100WBC Sodium 132 L (135-145) mmol/L Potassium 4.6 D (3.3-5.1) mmol/L Chloride 101 (96-108) mmol/L Carbon Dioxide 20 L (22-29) mmol/L Anion Gap 16 (12-20) BUN 15 (9-16) mg/dL Creatinine 0.85 (0.5-1.4) mg/dL Estim Creat Clear Calc 108.6 Estimated GFR > 60 Random Glucose 214 H (60-115) mg/dL Lactic Acid 1.8 (0.5-2.0) mmol/L Calcium 9.4 D (8.4-10.2) mg/dL Total Bilirubin 0.5 (0.0-1.0) mg/dL AST 24 (5-37) U/L ALT 30 (0-40) U/L Alkaline Phosphatase 97 (39-117) U/L Troponin I High Sens (<3.5-35.0) ng/L Total Protein 9.2 H (6.5-8.0) g/dL Albumin 4.4 (3.5-5.0) g/dL Lipase 421 H (8-78) U/L Urine Color Urine Appearance Urine pH (5.0-9.0) Ur Specific [place] (1.005-1.025) Urine Protein (Neg-Trace) mg/dL Urine Glucose (UA) (Negative) mg/dL Urine Ketones (Negative) mg/dL Urine Blood (Negative) Urine Nitrite (Negative) Ur Leukocyte Esterase (Negative) Urine RBC (0-2) /HPF Urine WBC (0-5) /HPF Ur Squamous Epith Cells (0-2) /HPF Urine Bacteria (None Seen) Hyaline Casts (0-2) /LPF 10/05/22 10/05/22 Range/Units 15:25 15:41 WBC (4.8-10.8) X10*3/uL RBC (4.60-5.80) X10*6/uL Hgb (14.0-18.0) g/dl Hct (42.0-52.0) % MCV (80.0-98.0) fL MCH (27.0-33.0) pg MCHC (31.0-36.0) g/dl RDW (11.0-16.0) % Plt Count (160-400) X10*3/uL MPV (9.4-12.4) fL Immature Gran % (Auto) (0.0-0.4) % Neut % (Auto) (45-73) % Lymph % (Auto) (20-40) % [place] % (Auto) (2-11) % Eos % (Auto) (0-4) % Baso % (Auto) (0-2) % Lymph # (Auto) (1.2-4.9) X10*3/uL [place] # (Auto) (0.1-1.2) X10*3/uL Eos # (Auto) (0.0-0.4) X10*3/uL Baso # (Auto) (0.0-0.2) X10*3/uL Abs Immat Gran (auto) (0.00-0.03) X10*3/uL Absolute Neuts (auto) (2.0-8.3) x10*3/uL Absolute Nucleated RBC (0.0-0.012) X10*3/uL Nucleated RBC % (auto) (0.0-0.2) /100WBC Sodium (135-145) mmol/L Potassium (3.3-5.1) mmol/L Chloride (96-108) mmol/L Carbon Dioxide (22-29) mmol/L Anion Gap (12-20) BUN (9-16) mg/dL Creatinine (0.5-1.4) mg/dL Estim Creat Clear Calc Estimated GFR Random Glucose (60-115) mg/dL Lactic Acid (0.5-2.0) mmol/L Calcium (8.4-10.2) mg/dL Total Bilirubin (0.0-1.0) mg/dL AST (5-37) U/L ALT (0-40) U/L Alkaline Phosphatase (39-117) U/L Troponin I High Sens < 3.5 (<3.5-35.0) ng/L Total Protein (6.5-8.0) g/dL Albumin (3.5-5.0) g/dL Lipase (8-78) U/L Urine Color Yellow Urine Appearance Clear Urine pH 5.5 (5.0-9.0) Ur Specific [place] >= 1.030 H (1.005-1.025) Urine Protein 100 (2+) H (Neg-Trace) mg/dL Urine Glucose (UA) 500 H (Negative) mg/dL Urine Ketones Trace (Negative) mg/dL Urine Blood Negative (Negative) Urine Nitrite Negative (Negative) Ur Leukocyte Esterase Negative (Negative) Urine RBC 0-2 (0-2) /HPF Urine WBC 0-5 (0-5) /HPF Ur Squamous Epith Cells 0-2 (0-2) /HPF Urine Bacteria None Seen (None Seen) Hyaline Casts 3-5 (0-2) /LPF Medications Administered Discontinued Medications Generic Name Dose Route Start Last Admin Trade Name Freq PRN Reason Stop Dose Admin Al Hydroxide/Mg Hydroxide 30 ml 10/05/22 15:01 10/05/22 15:30 Magnesium Hydrox/Alum Hydrox 30 Ml Oral.Susp PO 10/05/22 15:02 30 ml ONCE ONE Administration Famotidine 20 mg 10/05/22 15:01 10/05/22 15:30 Famotidine/Pf 20 Mg/2 Ml Vial IVPUSH 10/05/22 15:02 20 mg ONCE ONE Administration Sodium Chloride 1,000 mls @ 999 mls/hr 10/05/22 15:15 10/05/22 16:46 Ns IV 10/05/22 16:15 Infused .Q1H1M TOBY Infusion Lidocaine HCl 15 ml 10/05/22 15:01 10/05/22 15:30 Lidocaine Hcl Viscous 2 % 15 Ml Solution PO 10/05/22 15:02 15 ml ONCE ONE Administration Ondansetron HCl 4 mg 10/05/22 15:01 10/05/22 15:30 Ondansetron Hcl 4 Mg/2 Ml Vial IVPUSH 10/05/22 15:02 4 mg ONCE ONE Administration Discharge Plan Discharge Clinical Impression: Pancreatitis, Gastritis Patient Disposition: Home, Self-Care Instructions: Gastritis (ED), Pancreatitis (ED) Additional Instructions: avoid alcohol. Clear liquid diet for the next 2 days. Advance diet slowly. Return if the abdominal pain returns. I am discharging home with 2 prescriptions. One for nausea which is Zofran, ondansetron One for stomach acid which is Prilosec, Omeprazole Prescriptions: New omeprazole 20 mg capsule,delayed release(DR/EC) 20 mg PO DAILY Qty: 30 0RF ondansetron 4 mg tablet,disintegrating 4 mg PO Q8H PRN (Reason: nausea and vomiting) Qty: 14 0RF No Action fenofibrate 160 mg tablet 160 mg PO DAILY 30 Days Qty: 30 7RF Rx Instructions: Dose increased ondansetron 4 mg tablet,disintegrating 4 mg PO Q6-8H PRN (Reason: nausea and vomiting) Qty: 14 0RF omeprazole 20 mg tablet,delayed release (DR/EC) 20 mg PO DAILY Qty: 30 0RF amlodipine 5 mg Tablet 5 mg PO DAILY fluoxetine 20 mg Capsule 20 mg PO DAILY atorvastatin 80 mg tablet 80 mg PO BEDTIME 30 Days Qty: 30 6RF Fish Oil 340-1,000 mg capsule 2 cap PO BID 30 Days Qty: 120 6RF (DME) lancets 33 gauge misc See Rx Instructions Not Applicable BID Qty: 100 Rx Instructions: As directed (DME) FreeStyle Lite Strips Strip See Rx Instructions Not Applicable BID Qty: 10 Rx Instructions: As directed
[2022-10-05 15:06] VITALS: BP 162/99; PULSE 87; RESP 16; O2SAT 98
[2022-10-05 15:32] LABS: MANUAL DIFF FLAG NO
--- NOTE | 2022-10-05 15:44 | PC.NURSE ---
pt. alert but confused. He states he doesn't remember what day or year it is. He states this is baseline for him, some things he can't remember. Neuro assessment is normal. He complains of epigastric pain since yesterday and vomiting about 15 times since 7am this morning. IV in place and fluids running. gave him zofran and gi meds.
[2022-10-05 15:50] LABS: Appearance Urine Clear; Color Urine Yellow; Glucose Urine UA 500 mg/dL (Negative); Leukocyte Esterase Urine Negative (Negative); Nitrite Urine Negative (Negative); PH 5.5 (5.0-9.0); Specific Gravity - Urine >= 1.030 (1.005-1.025); UMIC TRIGGER UACC YES; Urine Blood Negative (Negative); Urine Ketones Trace mg/dL (Negative); Urine Protein 100 (2+) mg/dL (Neg-Trace)
[2022-10-05 15:52] LABS: Lactic Acid 1.8 mmol/L (0.5-2.0)
[2022-10-05 15:55] LABS: Bacteria Urine None Seen (None Seen); RBC Urine 0-2 /HPF (0-2); Squamous Epithelial Cell Urine 0-2 /HPF (0-2); WBC Urine 0-5 /HPF (0-5)
[2022-10-05 15:55] LABS: Basophils Percent Auto 0.1 % (0-2); Eosinophils Percent Auto 0.1 % (0-4); Hematocrit 42.8 % (42.0-52.0); Imm Gran Abs Auto 0.09 X10*3/uL (0.00-0.03); Imm Gran Pct Auto 0.7 % (0.0-0.4); Lymphocytes Absolute Auto 0.6 X10*3/uL (1.2-4.9); Lymphocytes Percent Auto 4.5 % (20-40); Mean Corpuscular Volume 86.8 fL (80.0-98.0); Mean Platelet Volume 10.1 fL (9.4-12.4); Monocytes Absolute Auto 0.5 X10*3/uL (0.1-1.2); Monocytes Percent Auto 3.6 % (2-11); Neutrophils Absolute Auto 12.2 x10*3/uL (2.0-8.3); Platelet Count 216 X10*3/uL (160-400); Red Blood Count 4.93 X10*6/uL (4.60-5.80); Red Cell Distribution Width 11.7 % (11.0-16.0); SCAN SMEAR FLAG 1; White Blood Count 13.5 X10*3/uL (4.8-10.8)
[2022-10-05 16:02] LABS: Hemoglobin 14.4 g/dl (14.0-18.0); Mean Corpuscular HGB Conc 33.6 g/dl (31.0-36.0); Mean Corpuscular Hemoglobin 29.2 pg (27.0-33.0)
[2022-10-05 16:21] LABS: Troponin-I High Sensitivity < 3.5 ng/L (<3.5-35.0)
[2022-10-05 16:57] LABS: Alanine Aminotransferase 30 U/L (0-40); Albumin Level 4.4 g/dL (3.5-5.0); Alkaline Phosphatase 97 U/L (39-117); Anion Gap 16 (12-20); Aspartate Amino Transferase 24 U/L (5-37); Bilirubin Total 0.5 mg/dL (0.0-1.0); Blood Urea Nitrogen 15 mg/dL (9-16); Calcium 9.4 mg/dL (8.4-10.2); Carbon Dioxide 20 mmol/L (22-29); Chloride 101 mmol/L (96-108); Creatinine Clr Calc Pharmacy 108.6; Estimated Glomerular Filt Rate > 60; Glucose Random 214 mg/dL (60-115); Lipase 421 U/L (8-78); Potassium 4.6 mmol/L (3.3-5.1); Sodium 132 mmol/L (135-145); Total Protein 9.2 g/dL (6.5-8.0)
[2022-10-05 17:10] LABS: Influenza A PCR NEGATIVE (Negative); Influenza B PCR NEGATIVE (Negative); Resp Syncy Virus RNA Qual PCR NEGATIVE (Negative); SARS COV2 PCR INHOUSE NEGATIVE (Negative)
[2022-10-05 17:41] VITALS: BP 161/97; PULSE 83; RESP 16; O2SAT 96
--- NOTE | 2022-10-05 17:43 | PC.NURSE ---
pt. resting comfortably. states pain has improved to 2/10. asking for something to drink. gave him water. still waiting on serology to come back
== END 2022-10-05 18:12 | disposition home or self-care (01) ==
PROVIDERS: Emergency Provider Emergency Medicine
DX: K85.90 Acute pancreatitis without necrosis or infection, unspecified (principal); K29.70 Gastritis, unspecified, without bleeding; R10.13 Epigastric pain; R11.2 Nausea with vomiting, unspecified; R73.03 Prediabetes; I10 Essential (primary) hypertension; E78.5 Hyperlipidemia, unspecified; Z79.899 Other long term (current) drug therapy; Z79.02 Long term (current) use of antithrombotics/antiplatelets
CPT/HCPCS: 0241U; 36415; 71046; 80053; 81001; 83605; 83690; 84484; 85025; 93005; 96361; 96374; 96375; 99284; J2405

== ENCOUNTER 2022-12-17 09:54 | Emergency (ER) | payer OTHER, SELFPAY ==
[2022-12-17 10:05] VITALS: BP 155/45; BP 175/90; PULSE 74; PULSE 87; RESP 16; TEMP 36.8; O2SAT 98; O2SAT 99; BMI 29.7
--- NOTE | 2022-12-17 10:07 | PC.NURSE ---
41 y/o M BIBA from home with abd pain, N/V. pt has hx of pancreatitis and states this feels similar. pt is aox3, calm and cooperatie, VSS. IV in place via EMS, labs drawn and sent. pt in gown, on monitor awaiting provdider
[2022-12-17 10:19] LABS: MANUAL DIFF FLAG NO
--- NOTE | 2022-12-17 10:35 | ED.NAVMDI ---
HPI - Nausea/Vomiting/Diarrhea General Chief complaint: Nausea/Vomiting/Diarrhea Stated complaint: ABD PAIN Time Seen by Provider: 12/17/22 10:19 Source: patient and EMS Mode of arrival: EMS Limitations: no limitations History of Present Illness HPI Narrative: Patient is a 41-year-old male with a history of pancreatitis, TBI, occasional alcohol use with chief complaint abdominal pain that started sometime in the middle of the night. He indicates epigastric pain and has also had some vomiting and chills with no measured fever. He has vomited multiple times and had a cup of coffee this morning that he was unable to keep ruby, including his daily medications. He was recently started on Metformin about 3 weeks ago after being pre-diabetic for a number of years. He denies radiation of pain, headache, chest pain, shortness of breath, dizziness, back pain, CVAT, blood in the urine and blood in stool. He was recently started on metformin MD elicited complaint: nausea and vomiting Pertinent past history: abdominal surgery and pacreatitis Onset (ago): hour(s) (6-8) Associated nausea: Yes Associated abdominal pain: Yes Location of pain: epigastric Pain consistency: constant Severity: similar to previous episodes Pain scale (0-10): 9 Quality: aching and constant Relieving factors: none Treatment prior to arrival: none Related Data Home Medications Medication Instructions Recorded Confirmed amlodipine 5 mg tablet 5 mg PO DAILY 08/06/20 11/27/21 fluoxetine 20 mg capsule 20 mg PO DAILY 08/06/20 11/27/21 blood sugar diagnostic #10 ea 02/04/21 11/27/21 lancets 33 gauge #100 ea 02/04/21 11/27/21 Previous Rx's Medication Instructions Recorded atorvastatin 80 mg tablet 80 mg PO BEDTIME 30 days #30 tabs 02/04/21 omega-3 fatty acids-fish oil 340 2 cap PO BID 30 days #120 caps 02/04/21 mg-1,000 mg capsule (Fish Oil) fenofibrate 160 mg tablet 160 mg PO DAILY 30 days #30 tabs 02/05/21 omeprazole 20 mg tablet,delayed 20 mg PO DAILY #30 tabs 06/24/21 release ondansetron 4 mg disintegrating 4 mg PO Q6-8H PRN nausea and 06/24/21 tablet vomiting #14 tabs omeprazole 20 mg capsule,delayed 20 mg PO DAILY #30 caps 10/05/22 release ondansetron 4 mg disintegrating 4 mg PO Q8H PRN nausea and 10/05/22 tablet vomiting #14 tabs ondansetron 4 mg disintegrating 4 mg PO Q6H PRN nausea and 12/17/22 tablet vomiting #15 tabs oxycodone 5 mg tablet 5 mg PO Q8H PRN pain #5 tabs 12/17/22 Allergies Allergy/AdvReac Type Severity Reaction Status Date / Time No Known Allergies Allergy Verified 11/27/21 07:53 Review of Systems Review of Systems: Yes all other systems are reviewed and are negative Constitutional: Constitutional: Reports no additional constitutional complaints, Denies body ache(s), Reports chills, Denies fever(s), Denies headache(s) and Denies weakness Eyes: Eyes: Reports no additional eye complaints and Denies change in vision ENT: Reports system reviewed and no additional complaints, except as documented, Denies dizziness, Denies headache(s), Denies nasal congestion, Denies nasal discharge and Denies neck pain Cardiovascular: Cardiovascular: Reports no additional cardiovascular complaints, Denies chest pain, Denies leg edema and Denies dyspnea Respiratory: Respiratory: Reports no additional respiratory complaints, Denies cough and Denies dyspnea Gastrointestinal: Gastrointestinal: Reports abdominal pain, Denies diarrhea, Reports nausea, Reports vomiting and Denies hematemesis Genitourinary: Genitourinary: Denies urinary incontinence Musculoskeletal: Musculoskeletal: Reports no additional musculoskeletal complaints, Denies back pain, Denies arthralgias, Denies joint swelling, Denies neck pain, Denies numbness and Denies tingling Integumentary/Breasts: Skin/Breast: Reports system reviewed and no additional complaints, except as docu and Denies rash Neurologic: Denies Abnormal speech present, Denies dizziness, Denies headache(s), Denies numbness, Denies tingling and Denies weakness [facility] Past Medical History Attestation statement: The following information was validated with the patient. Source: old records reviewed and nursing notes reviewed Medical History History of traumatic brain injury HTN (hypertension) Obesity (BMI 30-39.9) Prediabetes Surgical History No pertinent past surgical history Family History Family History Father No problems noted. Mother No problems noted. Social History Social History Household Members: Family Household Members Other:: lives with family Alcohol intake: current Alcohol intake frequency: holidays/special occasions only Patient Tobacco Use Status: Never used Tobacco Advance Directives: No Advance Directives Information Provided: Yes service: No Current occupational status: unemployed and disabled Current occupation: and disability Physical Exam Vital Signs: Vital Signs: Last Vital Signs Temp 98.2 F 12/17/22 10:05 Pulse 81 12/17/22 13:22 Resp 12 12/17/22 13:22 BP 152/93 H 12/17/22 13:22 Pulse Ox 98 12/17/22 13:22 O2 Del Method 12/17/22 13:22 BMI result Body Mass Index 29.7 Const: General: cooperative, healthy appearing, comfortable and no acute distress Orientation/consciousness: patient oriented x3 Limitations: no limitations HEENT: Head: Yes normal to inspection Ears: hearing grossly normal bilaterally General nose exam: Normal external nose present Face and sinus: Yes normal facial exam Mouth: Normal oral and palatal mucosa present Throat: Yes posterior oropharynx normal Eyes: General: appearance normal, both eyes and all related structures Pupils: Equal, round and reactive pupils present Neck: Neck: Yes normal visual inspection Chest: Chest palpation & inspection: normal inspection of the chest Resp: Effort & Inspection: normal respiratory effort Auscultation: clear to auscultation bilaterally Cardio: Rate: regular rate Rhythm: regular rhythm Peripheral pulses: Peripheral pulses 2+ throughout GI: Inspection: Yes normal to inspection and Yes scar (2cm surgical appearing ) Palpation (GI): Soft to palpation, Tenderness to palpation present (GI) in the epigastrum and in the LUQ and No Ascites present Auscultation: normal bowel sounds : General: Yes no CVA tenderness Back/Spine/Pelvis: Back: no CVA tenderness Thoracic/Lumbar Spine: thoracic and lumbar spine normal to inspection Skin: General skin exam: no rashes or lesions noted Neuro: General: patient oriented x3, no focal motor deficits, normal sensation to monofilament and Unable to assess gait Cranial nerves: Yes Equal, round and reactive pupils present Cognition (Neuro): normal cognition Speech: No Abnormal speech present Gait exam (Neuro): Unable to assess gait Motor exam (neuro): 5/5 motor strength present throughout Extrem: General: Yes normal to inspection Psych: Mental Status: mental status grossly normal Course Course Course Narrative: 1630-Lipase 874. Patient has been this elevated in the past. Mild hyperK-multiple attempts for labs and per lab mild hemolysis. WBC 11.7. Patient reports pain is resolved. No nausea. Drinking nathalia-barbara and feels well. Ramsons criteria 2-severe pancreatitis unlikely. Discussed this with patient. Patient wants to go home. We discussed clear liquids for 2 days then advance diet as tolerated. Paitent should return for worsening signs/symptoms. Reevaluation(s) Reevaluation #1: 1700-I did speak to the patient and his sister at the bedside. Patient is adamant that his pain is resolved and he feels better and would like to go home. I did explain to him that he has pancreatitis and that if he has intractable pain or vomiting we would consider admitting him to the hospital. Patient would prefer to go home. Reviewed worrisome signs and symptoms with both the patient and the family. They are aware they are welcome to return at any time. Medications Administered Discontinued Medications Generic Name Dose Route Start Last Admin Trade Name Freq PRN Reason Stop Dose Admin Sodium Chloride 1,000 mls @ 999 mls/hr 12/17/22 10:44 12/17/22 11:51 Ns IV 12/17/22 11:44 Infused .Q1H1M STA Infusion Morphine Sulfate 4 mg 12/17/22 10:44 12/17/22 10:53 Morphine Sulfate 4 Mg/Ml Cartridge IVPUSH 12/17/22 10:45 4 mg ONCE ONE Administration Protocol Ondansetron HCl 4 mg 12/17/22 10:44 12/17/22 10:54 Ondansetron Hcl 4 Mg/2 Ml Vial IVPUSH 12/17/22 10:45 4 mg ONCE ONE Administration Medical Decision Making Medical Decision Making [facility] Narrative: This 41 y/o male patient presents with epigastric abdominal pain, nausea and vomiting whose symptoms feel similar to previous episodes of pancreatitis. Differential diagnoses includes possible acute pancreatitis and acute gastroenteritis. Abdominal exam without peritoneal signs. Currently euvolemic without evidence of dehydration. No evidence of surgical abdomen or other acute medical emergency including bowel obstruction, viscus perforation, vascular catastrophe, atypical appendicitis, acute cholecystitis at this time. Presentation not consistent with other acute, emergent causes of vomiting / diarrhea at this time. Plan: supportive care, IV rehydration, IV pain medication, IV antiemetic, Labs: CBC, CMP and a Lipase, serial abdominal exam, reassess need for imaging Differential Diagnosis Differential Diagnoses: The differential diagnosis associated with the presentation includes see discussion above Admission/Observation Consideration of admission/observation: Escalation of care including admission/observation considered Labs c/w pancreatitis. Ransons criteria 2. Tolerating PO. Pain resolved and wants to go home. Does not need admission. Lab Data MDM Lab Attestation statement: I reviewed the patient's lab results. 12/17/22 10:09 12/17/22 10:09 Labs: Lab Results 12/17/22 12/17/22 12/17/22 Range/Units 10:09 10:49 12:12 WBC 11.7 H (4.8-10.8) X10*3/uL RBC 5.10 (4.60-5.80) X10*6/uL Hgb 14.6 (14.0-18.0) g/dl Hct 43.6 (42.0-52.0) % MCV 85.5 (80.0-98.0) fL MCH 28.6 (27.0-33.0) pg MCHC 33.5 (31.0-36.0) g/dl RDW 11.9 (11.0-16.0) % Plt Count 210 (160-400) X10*3/uL MPV 9.4 (9.4-12.4) fL Immature Gran % (Auto) 0.5 H (0.0-0.4) % Neut % (Auto) 84.8 H (45-73) % Lymph % (Auto) 9.4 L (20-40) % [place] % (Auto) 4.3 (2-11) % Eos % (Auto) 0.6 (0-4) % Baso % (Auto) 0.4 (0-2) % Lymph # (Auto) 1.1 L (1.2-4.9) X10*3/uL [place] # (Auto) 0.5 (0.1-1.2) X10*3/uL Eos # (Auto) 0.1 (0.0-0.4) X10*3/uL Baso # (Auto) 0.1 (0.0-0.2) X10*3/uL Abs Immat Gran (auto) 0.06 H (0.00-0.03) X10*3/uL Absolute Neuts (auto) 10.0 H (2.0-8.3) x10*3/uL Absolute Nucleated RBC 0.000 (0.0-0.012) X10*3/uL Nucleated RBC % (auto) 0.0 (0.0-0.2) /100WBC Sodium 134 L (135-145) mmol/L Potassium 5.6 H D (3.3-5.1) mmol/L Chloride 104 (96-108) mmol/L Carbon Dioxide 25 (22-29) mmol/L Anion Gap 11 L (12-20) BUN 11 (9-16) mg/dL Creatinine 0.85 (0.5-1.4) mg/dL Estim Creat Clear Calc 119.9 Estimated GFR > 60 Fasting Glucose 214 H (60-99) mg/dL Calcium 8.2 L D (8.4-10.2) mg/dL Total Bilirubin 0.4 (0.0-1.0) mg/dL AST 36 (5-37) U/L ALT 25 (0-40) U/L Alkaline Phosphatase 76 (39-117) U/L Lactate Dehydrogenase 542 H (118-273) U/L Total Protein 8.8 H (6.5-8.0) g/dL Albumin 4.0 (3.5-5.0) g/dL Lipase 874 H (8-78) U/L COVID-19 (DIANA) Negative (Negative) COVID-19 Clin Com See Note Discharge Plan Discharge Clinical Impression: Pancreatitis Patient Disposition: Home, Self-Care Additional Instructions: Admission was offerred but you declined this and preferred to go home Avoid alcohol.? Take your cholesterol medication Clear liquid diet for the next 2 days.? Advance diet slowly.? Return for worsening pain, vomiting, fever Prescriptions: New ondansetron 4 mg tablet,disintegrating 4 mg PO Q6H PRN (Reason: nausea and vomiting) Qty: 15 0RF oxycodone 5 mg tablet 5 mg PO Q8H PRN (Reason: pain) Qty: 5 0RF Rx Instructions: Partial Fill upon patient request. No Action fenofibrate 160 mg tablet 160 mg PO DAILY 30 Days Qty: 30 7RF Rx Instructions: Dose increased ondansetron 4 mg tablet,disintegrating 4 mg PO Q6-8H PRN (Reason: nausea and vomiting) Qty: 14 0RF omeprazole 20 mg tablet,delayed release (DR/EC) 20 mg PO DAILY Qty: 30 0RF amlodipine 5 mg Tablet 5 mg PO DAILY fluoxetine 20 mg Capsule 20 mg PO DAILY omeprazole 20 mg capsule,delayed release(DR/EC) 20 mg PO DAILY Qty: 30 0RF ondansetron 4 mg tablet,disintegrating 4 mg PO Q8H PRN (Reason: nausea and vomiting) Qty: 14 0RF atorvastatin 80 mg tablet 80 mg PO BEDTIME 30 Days Qty: 30 6RF Fish Oil 340-1,000 mg capsule 2 cap PO BID 30 Days Qty: 120 6RF (DME) lancets 33 gauge misc See Rx Instructions Not Applicable BID Qty: 100 Rx Instructions: As directed (DME) FreeStyle Lite Strips Strip See Rx Instructions Not Applicable BID Qty: 10 Rx Instructions: As directed Referrals: Caprice Purdy MD [Primary Care Provider] - 1 week
[2022-12-17 10:40] LABS: Basophils Absolute Auto 0.1 X10*3/uL (0.0-0.2); Basophils Percent Auto 0.4 % (0-2); Eosinophils Absolute Auto 0.1 X10*3/uL (0.0-0.4); Eosinophils Percent Auto 0.6 % (0-4); Hematocrit 43.6 % (42.0-52.0); Imm Gran Abs Auto 0.06 X10*3/uL (0.00-0.03); Imm Gran Pct Auto 0.5 % (0.0-0.4); Lymphocytes Absolute Auto 1.1 X10*3/uL (1.2-4.9); Lymphocytes Percent Auto 9.4 % (20-40); Mean Corpuscular Volume 85.5 fL (80.0-98.0); Mean Platelet Volume 9.4 fL (9.4-12.4); Monocytes Absolute Auto 0.5 X10*3/uL (0.1-1.2); Monocytes Percent Auto 4.3 % (2-11); Neutrophils Percent Auto 84.8 % (45-73); Platelet Count 210 X10*3/uL (160-400); Red Cell Distribution Width 11.9 % (11.0-16.0); SCAN SMEAR FLAG 1; White Blood Count 11.7 X10*3/uL (4.8-10.8)
[2022-12-17 10:42] LABS: Hemoglobin 14.6 g/dl (14.0-18.0); Mean Corpuscular HGB Conc 33.5 g/dl (31.0-36.0); Mean Corpuscular Hemoglobin 28.6 pg (27.0-33.0)
[2022-12-17] MEDS: 0.9 % Sodium Chloride 1,000 ML 999 ML IV (10:53)
[2022-12-17] MEDS: Morphine Sulfate 4 MG/ML CARTRIDGE IVPUSH (10:53)
[2022-12-17] MEDS: ondansetron HCL 4 MG/2 ML VIAL IVPUSH (10:54)
[2022-12-17 11:48] LABS: COVID-19 Test Negative (Negative); IDNOW Serial# 16C4AD1C
[2022-12-17 12:16] VITALS: BP 141/82; PULSE 74; RESP 14; O2SAT 97
[2022-12-17 13:22] VITALS: BP 152/93; PULSE 81; RESP 12; O2SAT 98
[2022-12-17 14:40] LABS: Alanine Aminotransferase 25 U/L (0-40); Alkaline Phosphatase 76 U/L (39-117); Anion Gap 11 (12-20); Aspartate Amino Transferase 36 U/L (5-37); Bilirubin Total 0.4 mg/dL (0.0-1.0); Blood Urea Nitrogen 11 mg/dL (9-16); Calcium 8.2 mg/dL (8.4-10.2); Carbon Dioxide 25 mmol/L (22-29); Chloride 104 mmol/L (96-108); Creatinine Clr Calc Pharmacy 119.9; Estimated Glomerular Filt Rate > 60; Glucose Fasting 214 mg/dL (60-99); Lipase 874 U/L (8-78); Potassium 5.6 mmol/L (3.3-5.1); Sodium 134 mmol/L (135-145); Total Protein 8.8 g/dL (6.5-8.0)
[2022-12-17 15:09] LABS: Lactate Dehydrogenase 542 U/L (118-273)
--- NOTE | 2022-12-17 15:48 | PC.NURSE ---
pt given food and drink for PO challenge, denies pain or nausea
== END 2022-12-17 17:37 | disposition home or self-care (01) ==
PROVIDERS: Nurse Practitioner Family; Emergency Provider Emergency Medicine Emergency Medical Services; PCP Family Medicine
DX: K85.90 Acute pancreatitis without necrosis or infection, unspecified (principal); Z20.822 Contact with and (suspected) exposure to COVID-19; Z20.828 Contact with and (suspected) exposure to other viral communicable diseases; Z79.899 Other long term (current) drug therapy
CPT/HCPCS: 36415; 80053; 83615; 83690; 85025; 87635; 96361; 96374; 96375; 99283; 99284; J2270; J2405

== ENCOUNTER 2023-04-22 08:39 | Outpatient (REF) | payer OTHER, SELFPAY ==
[2023-04-22 12:12] LABS: Estimated Average Glucose 131 mg/dL; Hemoglobin A1c % 6.2 %
[2023-04-22 12:26] LABS: Anion Gap 23 (12-20); Blood Urea Nitrogen 15 mg/dL (9-16); Calcium 10.2 mg/dL (8.4-10.2); Carbon Dioxide 15 mmol/L (22-29); Chloride 104 mmol/L (96-108); Cholesterol 369 mg/dL; Estimated Glomerular Filt Rate > 60; Glucose Random 164 mg/dL (60-115); HDL Cholesterol 25 mg/dL; Potassium 3.9 mmol/L (3.3-5.1); Sodium 138 mmol/L (135-145)
[2023-04-22 12:37] LABS: Microalbum/Creatinine Ratio Ur 14.1 ug/mg cr
[2023-04-22 12:40] LABS: Triglycerides 2928 mg/dL
== END 2023-04-22 08:40 | disposition home or self-care (01) ==
LOC: HO.HHCL 08:39
PROVIDERS: Visit Provider Family Medicine
DX: E11.9 Type 2 diabetes mellitus without complications (principal)
CPT/HCPCS: 36415; 80051; 80061; 82043; 82310; 82565; 82947; 83036; 84520

== ENCOUNTER 2023-04-28 09:44 | Inpatient (IN) | payer OTHER, SELFPAY ==
[2023-04-28] VITALS (11 sets, daily range): BP systolic 130–192; BP diastolic 85–106; PULSE 68–111; RESP 13–23; TEMP 36.3–37.1; O2SAT 95–98; BMI 30.9; BMI 32.7
--- NOTE | 2023-04-28 | ECG_ITS ---
Test Reason : EPIGASTRIC PAIN Blood Pressure : / mmHG Vent. Rate : 071 BPM Atrial Rate : 071 BPM P-R Int : 112 ms QRS Dur : 084 ms QT Int : 400 ms P-R-T Axes : -24 046 028 degrees QTc Int : 434 ms Normal sinus rhythm Normal ECG When compared with ECG of 05-OCT-2022 15:50, No significant change was found Referred By: Generic ED Physician Electronically Signed By:Sam Fernandes
--- NOTE | ~2023-04-28 | XR_ITS ---
EXAMINATION: XR CHEST CLINICAL INFORMATION: Acute hypoxia COMPARISON: Previous chest x-ray most recent September 2022 TECHNIQUE: Frontal view of the chest was obtained. FINDINGS: The cardiac and mediastinal contours are normal. The lung volumes are low. There is bilateral lower atelectasis or small infiltrates. There are small bilateral pleural effusions. No pneumothorax. No free air. Mild degenerative changes of the spine. XR/XR chest 1V IMPRESSION: Low lung volumes. Bilateral atelectasis or small infiltrates and small bilateral pleural effusions.
--- NOTE | ~2023-04-28 | CT_ITS ---
EXAMINATION: CT ABDOMEN AND PELVIS WITH CONTRAST CLINICAL INFORMATION: Acute pancreatitis COMPARISON: Previous CT of the abdomen and pelvis July 2020 TECHNIQUE: Multidetector volumetric images were obtained from the superior aspect of the liver through the pubic symphysis following administration 85 mL of Omnipaque 350 intravenous contrast. Sagittal and coronal reformatted images were obtained on the technologist's workstation. Oral contrast: Was This CT examination was performed using dose optimization techniques as appropriate, variously including the following: *Automated exposure control *Adjustment of mA and/or kV according to patient size (this includes techniques or standardized protocols for targeted exams where dose is matched to indication/reason for exam; i.e. extremities or head) *Use of iterative reconstruction technique DLP: 500 mGy-cm FINDINGS: LUNG BASES: The visualized lung bases are unremarkable. LIVER, GALLBLADDER, AND BILIARY TREE: Enlarged fatty liver. The liver is otherwise normal. No biliary duct dilatation. The gallbladder is unremarkable with no evidence of radiopaque gallstones, gallbladder wall thickening, or obvious pericholecystic inflammatory changes. PANCREAS: Enlarged low-attenuation pancreatic body and tail suggestive of acute pancreatitis. There is surrounding peripancreatic fluid. There is some fluid seen in the lesser sac and under the left hemidiaphragm adjacent to the greater curvature of the stomach and spleen. There is fluid in the left anterior pararenal fascia and left paracolic gutter. There is fluid in the ayesha hepatis the surrounding the duodenum and some fluid in the hepatorenal space. There is fluid seen in the root of the small bowel mesentery. There is a decreased enhancement of the distal splenic vein at the portal splenic confluence questionable for thrombus for example axial image 30 series 3 coronal reconstructed image 35. The splenic vein is otherwise patent. SPLEEN: Unremarkable. ADRENAL GLANDS: Small 5 mm left adrenal nodule coronal reconstructed image 52. The right adrenal gland is normal. KIDNEYS AND URETERS: The kidneys are normal in size, shape, and attenuation. No hydronephrosis, hydroureter, or calculi seen. No perinephric stranding. Small bilateral renal cysts. No imaging follow-up recommended. BLADDER: Unremarkable. GASTROINTESTINAL TRACT: The small and large bowel are unremarkable. The appendix is unremarkable. ABDOMINAL WALL: No significant hernia is appreciated. LYMPH NODES: Normal. VASCULAR: Small amount of nonocclusive thrombus in the distal splenic vein portal splenic confluence. Vascular structures are otherwise unremarkable. PELVIC VISCERA: Unremarkable. OSSEOUS STRUCTURES: Unremarkable. CT/CT abdomen pelvis w IV con IMPRESSION: Severe pancreatitis with surrounding peripancreatic phlegmonous change/acute fluid collections. There is decreased enhancement of the body and tail the pancreas and follow-up imaging to rule out developing pancreatic necrosis should be considered. Small amount of thrombus in the distal splenic vein in the portal splenic confluence. Enlarged fatty liver. Fleischner guidelines were followed.
--- NOTE | ~2023-04-28 | CT_ITS ---
EXAMINATION: CT ABDOMEN AND PELVIS WITH CONTRAST CLINICAL INFORMATION: Pancreatitis. Worsening white blood cell count. COMPARISON: 04/30/2023 TECHNIQUE: Multidetector volumetric images were obtained from the superior aspect of the liver through the pubic symphysis following administration 85 mL of Omnipaque 350 intravenous contrast. Sagittal and coronal reformatted images were obtained on the technologist's workstation. Oral contrast: None This CT examination was performed using dose optimization techniques as appropriate, variously including the following: *Automated exposure control *Adjustment of mA and/or kV according to patient size (this includes techniques or standardized protocols for targeted exams where dose is matched to indication/reason for exam; i.e. extremities or head) *Use of iterative reconstruction technique DLP: 553 mGy-cm FINDINGS: LUNG BASES: Small left and trace right pleural effusions. Segmental atelectasis in the left lower lobe adjacent to the effusion. No consolidation. Trace right pleural effusion is improved as compared to prior. LIVER, GALLBLADDER, AND BILIARY TREE: Relative hypoattenuation of the hepatic parenchyma is consistent with steatosis. Liver is normal in size. No biliary ductal dilatation or focal hepatic lesions. The gallbladder is unremarkable with no evidence of radiopaque gallstones, gallbladder wall thickening, or obvious pericholecystic inflammatory changes. PANCREAS: Pancreas is enlarged and inflamed with surrounding fluid and fat stranding, similar to prior. Pancreatic enhancement appears diminished, similar to prior, and this remains relatively diffuse without more focal areas of hypoattenuation. Peripancreatic fluid extends throughout the retroperitoneum from the level of the left hemidiaphragm into the left anterior pararenal space and along the left lateroconal fascia. The volume of fluid appears diminished as compared to prior, particularly the components which extend into the region of the paracolic gutters. No new organized fluid collections are identified. SPLEEN: Unremarkable. ADRENAL GLANDS: Unremarkable. KIDNEYS AND URETERS: The kidneys are normal in size, shape, and attenuation. No hydronephrosis, hydroureter, or calculi seen. No perinephric stranding. Small bilateral simple renal cysts are unchanged, too small to completely characterize. No recommend imaging follow-up. BLADDER: Unremarkable. GASTROINTESTINAL TRACT: Stomach and colon are normal in caliber. Air-fluid levels are present within the proximal colon. Multiple segments of small bowel in the midabdomen overlying dilated, measuring up to 3.2 cm in diameter. No transition point identified. No significant residual intraperitoneal free fluid. No intraperitoneal free air. ABDOMINAL WALL: No significant hernia is appreciated. LYMPH NODES: Normal. VASCULAR: There is a small focus of thrombus within the main portal vein just distal to the confluence of the splenic and SMV, unchanged as compared to prior. This does not appear to produce obstruction to blood flow. No new thrombus is identified. Abdominal aorta is normal in caliber. PELVIC VISCERA: The prostate and seminal vesicles are unremarkable. OSSEOUS STRUCTURES: No acute osseous findings. Minimal degenerative spondylosis in the thoracic spine. CT/CT abdomen pelvis w IV con IMPRESSION: 1. Persistent interstitial pancreatitis, not significantly changed as compared to prior. Peripancreatic fluid appears diminished in volume as compared to prior. No new organized fluid collections are identified. 2. Small left pleural effusion, unchanged. Trace right pleural effusion is improved. 3. Small focus of nonocclusive thrombus in the main portal vein, unchanged. 4. Possible mild small bowel ileus. Fleischner guidelines were followed.
--- NOTE | ~2023-04-28 | CT_ITS ---
EXAMINATION: CT ABDOMEN AND PELVIS WITH CONTRAST CLINICAL INFORMATION: Acute pancreatitis COMPARISON: Previous CT of the abdomen and pelvis most recent 04/28/2023 TECHNIQUE: Multidetector volumetric images were obtained from the superior aspect of the liver through the pubic symphysis following administration 85 mL of Omnipaque 350 intravenous contrast. Sagittal and coronal reformatted images were obtained on the technologist's workstation. Oral contrast: Yes This CT examination was performed using dose optimization techniques as appropriate, variously including the following: *Automated exposure control *Adjustment of mA and/or kV according to patient size (this includes techniques or standardized protocols for targeted exams where dose is matched to indication/reason for exam; i.e. extremities or head) *Use of iterative reconstruction technique DLP: 1231 mGy-cm FINDINGS: LUNG BASES: Bilateral pleural effusions and lower lobe atelectasis/consolidation left greater than right. This is increased from previous exam. LIVER, GALLBLADDER, AND BILIARY TREE: Enlarged fatty liver. Normal gallbladder. No biliary duct dilatation. No stone appreciated by CT. PANCREAS: Diffuse fullness of the pancreas. There is homogeneous decreased enhancement of the pancreas without evidence of pancreatic necrosis. There is extensive fluid seen surrounding the pancreas, under the left hemidiaphragm, in the lesser sac/pararenal fascia, left greater than right, paracolic gutters, left greater than right and small bowel mesentery increased from previous exam. There is a small amount of generalized ascites increased from previous exam as well. SPLEEN: Unremarkable. ADRENAL GLANDS: Stable small left adrenal nodule. The right adrenal gland is normal. KIDNEYS AND URETERS: The kidneys are normal in size, shape, and attenuation. No hydronephrosis, hydroureter, or calculi seen. No perinephric stranding. Small bilateral renal cyst. No imaging follow-up recommended BLADDER: Unremarkable. GASTROINTESTINAL TRACT: The small and large bowel are unremarkable. The appendix is unremarkable. ABDOMINAL WALL: No significant hernia. LYMPH NODES: Normal. VASCULAR: Small amount of nonobstructive thrombus seen in the portal splenic confluence and extrahepatic main portal vein similar to previous exam. PELVIC VISCERA: Unremarkable. OSSEOUS STRUCTURES: Unremarkable. CT/CT abdomen pelvis w IV con IMPRESSION: Worsening pancreatitis with increasing peripancreatic fluid and generalized ascites. Stable small amount of nonocclusive thrombus in the portal splenic confluence. The splenic vein is otherwise patent. Enlarged fatty liver. Increasing atelectasis/consolidation and pleural effusions at the lung bases. Fleischner guidelines were followed.
--- NOTE | 2023-04-28 09:51 | PC.NURSE ---
Per EMS, pt sister would like to be notified of pt status once evaluated, [phone]
[2023-04-28 10:11] LABS: MANUAL DIFF FLAG NO
[2023-04-28 10:29] LABS: Appearance Urine Cloudy; Color Urine Dark Yellow; Glucose Urine UA 100 mg/dL (Negative); Leukocyte Esterase Urine Negative (Negative); Nitrite Urine Negative (Negative); PH 5.5 (5.0-9.0); Specific Gravity - Urine >= 1.030 (1.005-1.025); UMIC TRIGGER UA YES; Urine Blood Negative (Negative); Urine Ketones Trace mg/dL (Negative); Urine Protein 300 (3+) mg/dL (Neg-Trace)
[2023-04-28 10:40] LABS: Basophils Percent Auto 0.4 % (0-2); Eosinophils Absolute Auto 0.1 X10*3/uL (0.0-0.4); Eosinophils Percent Auto 0.7 % (0-4); Hematocrit 42.6 % (42.0-52.0); Imm Gran Abs Auto 0.05 X10*3/uL (0.00-0.03); Imm Gran Pct Auto 0.5 % (0.0-0.4); Lymphocytes Absolute Auto 1.3 X10*3/uL (1.2-4.9); Lymphocytes Percent Auto 13.3 % (20-40); Mean Corpuscular Volume 87.5 fL (80.0-98.0); Mean Platelet Volume 9.1 fL (9.4-12.4); Monocytes Absolute Auto 0.6 X10*3/uL (0.1-1.2); Monocytes Percent Auto 5.9 % (2-11); Neutrophils Absolute Auto 7.8 x10*3/uL (2.0-8.3); Neutrophils Percent Auto 79.2 % (45-73); Platelet Count 197 X10*3/uL (160-400); Red Blood Count 4.87 X10*6/uL (4.60-5.80); Red Cell Distribution Width 11.7 % (11.0-16.0); SCAN SMEAR FLAG 1; White Blood Count 9.8 X10*3/uL (4.8-10.8)
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
[2023-04-28 10:44] LABS: Bacteria Urine None Seen (None Seen); Granular Casts Urine Present; Hyaline Casts Urine >20 /LPF (0-2); WBC Urine 0-5 /HPF (0-5)
[2023-04-28 10:49] LABS: Hemoglobin 14.1 g/dl (14.0-18.0); Mean Corpuscular Hemoglobin 29.2 pg (27.0-33.0)
[2023-04-28 10:50] LABS: Mean Corpuscular HGB Conc 33.5 g/dl (31.0-36.0)
[2023-04-28] MEDS: PHENobarb/Hyoscy/Atropine/Scop 10 ML ELIXIR PO (11:08)
[2023-04-28] MEDS: Magnesium Hydrox/Alum Hydrox 30 ML ORAL.SUSP PO (11:09)
[2023-04-28] MEDS: Pantoprazole Sodium 40 MG/10 ML VIAL IVPUSH (11:09)
[2023-04-28] MEDS: Morphine Sulfate 4 MG/ML CARTRIDGE IVPUSH ×2 (13:16→16:53)
[2023-04-28] MEDS: ondansetron HCL 4 MG/2 ML VIAL IVPUSH (13:16)
--- NOTE | 2023-04-28 15:00 | PC.NURSE ---
Patient states that his abdominal pain and nausea are getting better after IV medications. Patient requesting Ice chips that were provided.
[2023-04-28 17:25] LABS: Glucose, Whole Blood 198 mg/dL (60-115)
[2023-04-28] MEDS: Lactated Ringers 1,000 ML 999 ML IVCONT (17:39)
[2023-04-28] MEDS: Dextrose 5 % and 0.45 % NaCl 1,000 ML 125 ML IVCONT (17:39)
[2023-04-28] MEDS: Insulin Regular/NS 100 UNIT/100 ML PLAST..BAG IVCONT (18:09)
[2023-04-28] MEDS: HYDROmorphone HCl 2 MG/ML VIAL IVPUSH (18:34)
[2023-04-28 18:42] LABS: Triglycerides 5190 mg/dL
--- NOTE | 2023-04-28 18:42 | PHA.MEDREC ---
Pharmacy Consult ? Medication Reconciliation Pharmacy has completed the medication reconciliation.
[2023-04-28] MEDS: iohexoL 350 MG/ML 100 ML INFUS..BTL IV (18:57)
[2023-04-28 19:10] LABS: Glucose, Whole Blood 241 mg/dL (60-115)
--- NOTE | 2023-04-28 19:27 | PC.NURSE ---
Assumed care of pt. Pt brought back by certified master safe technician just prior to assessment. Pt lying on stretcher, c/o mild mid abdominal pain. IVF, dextrose and insulin running as ordered. VS as charted. Pt in no acute distress at this time, pending admission to ICU.
[2023-04-28 21:01] LABS: Potassium 4.3 mmol/L (3.3-5.1)
[2023-04-28 21:03] LABS: Anion Gap 27 (12-20); Chloride 96 mmol/L (96-108)
[2023-04-28 21:04] LABS: Blood Urea Nitrogen 14 mg/dL (9-16); Carbon Dioxide 21 mmol/L (22-29)
[2023-04-28 21:06] LABS: Creatinine Clr Calc Pharmacy 136.1; Estimated Glomerular Filt Rate > 60
[2023-04-28 21:08] LABS: Calcium 9.2 mg/dL (8.4-10.2); Glucose Random 220 mg/dL (60-115)
[2023-04-28 21:10] LABS: Bilirubin Total 0.3 mg/dL (0.0-1.0)
[2023-04-28 21:11] LABS: Aspartate Amino Transferase 22 U/L (5-37); Bilirubin Direct < 0.2 mg/dL (0.0-0.5)
[2023-04-28 21:12] LABS: Alanine Aminotransferase 39 U/L (0-40); Total Protein 6.8 g/dL (6.5-8.0)
[2023-04-28 21:13] LABS: Albumin Level 4.8 g/dL (3.5-5.0); Sodium 144 mmol/L (135-145)
[2023-04-28] MEDS: Dextrose 5 % and Lactated Ring 1,000 ML 125 ML IVCONT (21:13)
[2023-04-28 21:15] LABS: Alkaline Phosphatase 83 U/L (39-117)
[2023-04-28 21:16] LABS: Glucose, Whole Blood 292 mg/dL (60-115)
[2023-04-28 21:22] LABS: Venous Blood Gas Refer to POC result
[2023-04-28 21:25] LABS: VBG Base Excess -3.6 mmol/L; VBG HCO3 19 mmol/L (22-26); VBG pCO2 29 mmHg; VBG pH 7.41 (7.32-7.43); VBG pO2 80 mmHg
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
[2023-04-28] MEDS: Enoxaparin Sodium 40 MG/0.4 ML SYRINGE SUBCUT (21:33)
[2023-04-28] MEDS: Piperacillin Sodium/Tazobactam 4.5 GM in 0.9 % Sodium Chloride 100 ML IV (21:33)
[2023-04-28] MEDS: HYDROmorphone HCl 1 MG/ML SYRINGE IVPUSH (21:33)
[2023-04-28 22:07] LABS: Glucose, Whole Blood 297 mg/dL (60-115)
[2023-04-28 23:03] LABS: Glucose, Whole Blood 305 mg/dL (60-115)
[2023-04-28 23:27] LABS: Anion Gap 27 (12-20); Blood Urea Nitrogen 18 mg/dL (9-16); Calcium 7.5 mg/dL (8.4-10.2); Carbon Dioxide 9 mmol/L (22-29); Chloride 103 mmol/L (96-108); Creatinine Clr Calc Pharmacy 92.5; Estimated Glomerular Filt Rate > 60; Glucose Random 270 mg/dL (60-115); Magnesium 1.5 mg/dL (1.6-2.6); Phosphorus 1.9 mg/dL (2.7-4.5); Potassium 4.7 mmol/L (3.3-5.1); Sodium 134 mmol/L (135-145)
[2023-04-28 23:47] LABS: Venous Blood Gas Refer to POC result
[2023-04-28 23:48] LABS: VBG Base Excess -5.3 mmol/L; VBG HCO3 16 mmol/L (22-26); VBG pCO2 24 mmHg; VBG pH 7.43 (7.32-7.43); VBG pO2 241 mmHg
[2023-04-28 23:50] LABS: Glucose, Whole Blood 244 mg/dL (60-115)
[2023-04-28] MEDS: Sodium Bicarbonate 8.4% 100 MEQ in Dextrose 5 % 900 ML IV (23:54)
[2023-04-28 23:58] LABS: Albumin Level 3.8 g/dL (3.5-5.0)
[2023-04-29] VITALS (25 sets, daily range): BP systolic 100–147; BP diastolic 76–103; PULSE 108–133; RESP 15–33; TEMP 36.2–37.2; O2SAT 92–96; BMI 32.4
[2023-04-29] MEDS: Calcium Gluconate/NaCl,Iso-Osm 2 GM/100 ML PLAST..BAG IV ×2 (00:01→06:15)
[2023-04-29] MEDS: Magnesium Sulfate/H2O 2 GM/50 ML PIGGYBACK IV (00:04)
[2023-04-29] MEDS: Potassium Phosphate/NS 15 MMOL/250 ML PLAST..BAG 62.5 MMOL IV (00:09)
[2023-04-29] MEDS: HYDROmorphone HCl 1 MG/ML SYRINGE IVPUSH ×3 (00:16→19:49)
[2023-04-29 00:51] LABS: Glucose, Whole Blood 236 mg/dL (60-115)
[2023-04-29 01:27] LABS: Lipase 1353 U/L (8-78)
[2023-04-29 02:09] LABS: Glucose, Whole Blood 181 mg/dL (60-115)
[2023-04-29 03:09] LABS: Glucose, Whole Blood 166 mg/dL (60-115)
[2023-04-29] MEDS: fentaNYL citrate/PF 100 MCG/2 ML VIAL 50 MCG IVPUSH (03:09)
[2023-04-29 04:04] LABS: Glucose, Whole Blood 135 mg/dL (60-115)
--- NOTE | 2023-04-29 04:19 | PC.NURSE ---
Addendum entered by Jimy Glass RN 04/29/23 05:25: vomited approx 300ML bilious emesis...c/o severe abdominal pain after vomiting...medicated with zofrand dilaudid per dec...state nausea and pain easing at present Original Note: CARE ASSUMED 23;15..AWAKE..ALERT..ORIENTED X2..VAGUE RESPONSES TO OTHER QUESTIONS...S.TACH HR 110'S...BP STABLE.....D5LR 100 CC/HR AND INSULIN DRIP 5 UNITS/HR AT HS...HS LABS REVIEWED BY ICU RADIATION CONTROL WORKER...IV FLUIDS CHANGED TO D5W/NaHCO3 100 MEQ AT 100 CC/HR...INSULIN DRIP TITRATED BY ICU RADIATION CONTROL WORKER TO 7 UNITS/HR TO 5 THEN TO 4 UNITS/HR WHILE REVIEWING HOURLY POC GLUCOSE LEVELS...CALCIUM GLUCONATE/MgSO4/K-PO4 REPLACEMENTS IV PER DEC...DILAUDID AND FENTANYL PER DEC FOR C/O ABDOMINAL PAIN..DENIES URGE TO VOID..PER SHIFT REPORT PATIENT VOIDED 350nL AT HS
[2023-04-29 05:17] LABS: VBG HCO3 20 mmol/L (22-26); VBG pCO2 29 mmHg; VBG pH 7.44 (7.32-7.43); VBG pO2 87 mmHg
[2023-04-29] MEDS: ondansetron HCL 4 MG/2 ML VIAL IVPUSH ×2 (05:17→15:04)
[2023-04-29 05:19] LABS: Glucose, Whole Blood 152 mg/dL (60-115)
[2023-04-29 05:19] LABS: Hemoglobin 18.5 g/dl (14.0-18.0); Mean Corpuscular HGB Conc 36.3 g/dl (31.0-36.0); Mean Corpuscular Hemoglobin 31.8 pg (27.0-33.0); Mean Corpuscular Volume 87.6 fL (80.0-98.0); Mean Platelet Volume 9.1 fL (9.4-12.4); Platelet Count 187 X10*3/uL (160-400); Red Blood Count 5.82 X10*6/uL (4.60-5.80); Red Cell Distribution Width 12.4 % (11.0-16.0); White Blood Count 8.5 X10*3/uL (4.8-10.8)
[2023-04-29 05:33] LABS: Triglycerides 2740 mg/dL
[2023-04-29 05:35] LABS: Alanine Aminotransferase 27 U/L (0-40); Albumin Level 3.6 g/dL (3.5-5.0); Alkaline Phosphatase 52 U/L (39-117); Anion Gap 17 (12-20); Aspartate Amino Transferase 34 U/L (5-37); Bilirubin Total 0.5 mg/dL (0.0-1.0); Blood Urea Nitrogen 22 mg/dL (9-16); Calcium 7.6 mg/dL (8.4-10.2); Carbon Dioxide 18 mmol/L (22-29); Chloride 105 mmol/L (96-108); Creatinine Clr Calc Pharmacy 62.8; Estimated Glomerular Filt Rate 51; Glucose Random 129 mg/dL (60-115); Magnesium 2.3 mg/dL (1.6-2.6); Potassium 4.5 mmol/L (3.3-5.1); Sodium 135 mmol/L (135-145); Total Protein 7.5 g/dL (6.5-8.0)
[2023-04-29] MEDS: Piperacillin Sodium/Tazobactam 4.5 GM in 0.9 % Sodium Chloride 100 ML IV ×4 (05:35→23:35)
[2023-04-29 05:43] LABS: Band Neutrophils Percent 25 % (3-5); Lymphocytes Absolute Manual 0.9 X10*3/uL (1.2-4.9); Lymphocytes Percent Manual 10 % (20-40); Monocytes Absolute Manual 0.4 X10*3/uL (0.1-1.2); Monocytes Percent Manual 5 % (2-11); Neutrophils Absolute Manual 7.2 X10*3/uL (2.0-8.3); Neutrophils Percent Manual 60 % (45-73)
[2023-04-29 05:44] LABS: Platelet Estimate NORMAL (NORMAL); Platelet Morphology Comment NORMAL; RBC Morphology NORMAL
[2023-04-29 05:45] LABS: Estimated Average Glucose 128 mg/dL; Hemoglobin A1c % 6.1 %
[2023-04-29 05:57] LABS: Glucose, Whole Blood 155 mg/dL (60-115)
[2023-04-29 05:58] LABS: Lipase 823 U/L (8-78)
[2023-04-29 06:02] LABS: Venous Blood Gas Refer to POC result
[2023-04-29 07:14] LABS: Glucose, Whole Blood 180 mg/dL (60-115)
[2023-04-29 08:08] LABS: Glucose, Whole Blood 174 mg/dL (60-115)
[2023-04-29] MEDS: Midazolam HCl/PF 2 MG/2 ML VIAL 0.5 MG IVPUSH (08:23)
[2023-04-29] MEDS: Lactated Ringers 1,000 ML 500 ML IVCONT ×2 (08:28→10:30)
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
[2023-04-29 09:10] LABS: Glucose, Whole Blood 137 mg/dL (60-115)
[2023-04-29 10:20] LABS: Glucose, Whole Blood 114 mg/dL (60-115)
[2023-04-29] MEDS: Sodium Bicarbonate 8.4% 100 MEQ in Dextrose 5 % 900 ML IV ×2 (10:27→19:43)
--- NOTE | 2023-04-29 12:01 | MHC.CM.PN ---
Met with pt to discuss d/c planning needs: Assessment somewhat limited by pt's continued requests for po fluids and complaints about NPO status. Pt resides w/mother and sister who are his primary care givers. Pt's sister provides transportation for pt. Pt does not use adaptive equipment per him and has [facility] capacity management specialist and RN home visits. Discussed HCP completion, pt declined. EMR notes document a hx of medication non compliance which seems likely given his labs on arrival to ED. CM to follow for changes in d/c plan.
[2023-04-29 12:04] LABS: Glucose, Whole Blood 122 mg/dL (60-115)
[2023-04-29 12:04] LABS: Glucose, Whole Blood 113 mg/dL (60-115)
[2023-04-29 13:09] LABS: Glucose, Whole Blood 141 mg/dL (60-115)
[2023-04-29 14:20] LABS: Glucose, Whole Blood 134 mg/dL (60-115)
[2023-04-29] MEDS: Insulin Regular/NS 100 UNIT/100 ML PLAST..BAG IVCONT (14:47)
[2023-04-29 16:01] LABS: Glucose, Whole Blood 179 mg/dL (60-115)
[2023-04-29] MEDS: Dextrose 5 % and Lactated Ring 1,000 ML 100 ML IVCONT ×2 (17:41→23:35)
[2023-04-29 17:55] LABS: Glucose, Whole Blood 160 mg/dL (60-115)
[2023-04-29 19:52] LABS: Glucose, Whole Blood 189 mg/dL (60-115)
[2023-04-29] MEDS: Enoxaparin Sodium 40 MG/0.4 ML SYRINGE SUBCUT (20:04)
[2023-04-29 22:01] LABS: Glucose, Whole Blood 176 mg/dL (60-115)
[2023-04-29] MEDS: LORazepam 2 MG/ML VIAL 1 MG IVPUSH (22:18)
[2023-04-29] MEDS: Throat Spray, Medicated 177 ML BOTTLE 1 SPRAY MUCOUS MEM (22:28)
[2023-04-29] MEDS: Nicotine Polacrilex 2 MG GUM BUCCAL (22:58)
[2023-04-29 23:54] LABS: Glucose, Whole Blood 177 mg/dL (60-115)
[2023-04-30] VITALS (16 sets, daily range): BP systolic 100–133; BP diastolic 63–85; PULSE 113–128; RESP 14–40; TEMP 36.3–37.7; O2SAT 89–95; BMI 34.2
[2023-04-30] MEDS: HYDROmorphone HCl 1 MG/ML SYRINGE IVPUSH ×6 (00:25→20:24)
[2023-04-30 01:51] LABS: Glucose, Whole Blood 172 mg/dL (60-115)
[2023-04-30] MEDS: Nicotine Polacrilex 2 MG GUM BUCCAL (02:36)
[2023-04-30 04:07] LABS: Glucose, Whole Blood 133 mg/dL (60-115)
[2023-04-30] MEDS: Sodium Bicarbonate 8.4% 100 MEQ in Dextrose 5 % 900 ML IV (04:25)
[2023-04-30] MEDS: Piperacillin Sodium/Tazobactam 4.5 GM in 0.9 % Sodium Chloride 100 ML IV ×3 (05:29→18:05)
[2023-04-30 05:45] LABS: VBG Base Excess 6.9 mmol/L; VBG HCO3 30 mmol/L (22-26); VBG pCO2 38 mmHg; VBG pO2 78 mmHg
[2023-04-30 05:53] LABS: Hematocrit 42.9 % (42.0-52.0); Hemoglobin 15.2 g/dl (14.0-18.0); Mean Corpuscular HGB Conc 35.4 g/dl (31.0-36.0); Mean Corpuscular Hemoglobin 31.7 pg (27.0-33.0); Mean Corpuscular Volume 89.4 fL (80.0-98.0); Mean Platelet Volume 9.3 fL (9.4-12.4); Platelet Count 126 X10*3/uL (160-400); Red Cell Distribution Width 12.6 % (11.0-16.0)
[2023-04-30 05:58] LABS: WBC ABN SCTR FOR CBC 1; White Blood Count 8.3 X10*3/uL (4.8-10.8)
[2023-04-30 06:00] LABS: Glucose, Whole Blood 177 mg/dL (60-115)
[2023-04-30 06:16] LABS: Alanine Aminotransferase 22 U/L (0-40); Albumin Level 2.8 g/dL (3.5-5.0); Alkaline Phosphatase 34 U/L (39-117); Anion Gap 12 (12-20); Aspartate Amino Transferase 21 U/L (5-37); Blood Urea Nitrogen 20 mg/dL (9-16); Calcium 6.7 mg/dL (8.4-10.2); Carbon Dioxide 28 mmol/L (22-29); Chloride 102 mmol/L (96-108); Creatinine Clr Calc Pharmacy 94.7; Estimated Glomerular Filt Rate > 60; Glucose Random 135 mg/dL (60-115); Magnesium 2.1 mg/dL (1.6-2.6); Phosphorus 2.4 mg/dL (2.7-4.5); Potassium 3.2 mmol/L (3.3-5.1); Sodium 139 mmol/L (135-145); Total Protein 5.5 g/dL (6.5-8.0); Triglycerides 903 mg/dL
[2023-04-30 06:19] LABS: Band Neutrophils Percent 19 % (3-5); Lymphocytes Absolute Manual 0.7 X10*3/uL (1.2-4.9); Lymphocytes Percent Manual 9 % (20-40); Monocytes Absolute Manual 0.6 X10*3/uL (0.1-1.2); Monocytes Percent Manual 7 % (2-11); Neutrophils Percent Manual 65 % (45-73); Platelet Estimate SLIGHTLY DECREASED (NORMAL); Platelet Morphology Comment NORMAL; RBC Morphology NORMAL
[2023-04-30 06:20] LABS: Dohle Bodies PRESENT; Smudge Cells PRESENT; Toxic Vacuolation PRESENT
[2023-04-30 06:24] LABS: Bilirubin Total 0.5 mg/dL (0.0-1.0)
[2023-04-30] MEDS: Albumin Human 25 % 100 ML 400 ML IV (06:44)
[2023-04-30] MEDS: Potassium Phosphate/NS 15 MMOL/250 ML PLAST..BAG 62.5 MMOL IV (06:49)
[2023-04-30 07:07] LABS: Venous Blood Gas Refer to POC result
[2023-04-30 08:11] LABS: Glucose, Whole Blood 140 mg/dL (60-115)
[2023-04-30] MEDS: gemfibroziL 600 MG TABLET PO ×2 (08:45→16:59)
--- NOTE | 2023-04-30 09:09 | P.PNGS_ITS ---
Subjective Subjective Date of Service: 04/30/23 Interval history: Patient reports no abdominal pain and denies nausea/vomiting. No BM or flatus. Physical Exam Vital Signs: Vital Signs: Last Vital Signs Temp 99.8 F 04/30/23 08:00 Pulse 115 H 04/30/23 09:00 Resp 21 H 04/30/23 09:00 BP 127/78 04/30/23 09:00 Pulse Ox 92 04/30/23 09:00 O2 Del Method Nasal Cannula 04/30/23 09:00 O2 Flow Rate 1 04/30/23 09:00 BMI result Body Mass Index 34.2 Const: General: alert Nutritional Appearance: well nourished Orientation/consciousness: patient oriented x3 Resp: Other: On nasal O2 Effort & Inspection: normal respiratory effort, no audible wheezes and no cough GI: Other: Abdomen is distended, tympanitic, nontender to palpation; no rebound, guarding or rigidity. Skin: Other: Warm, dry, no rash Neuro: General: patient oriented x3 Objective Data Active Medications Dextrose (Dextrose 50 % 25 Gm/50 Ml Syringe) 25 gm IVPUSH Q15M PRN PRN Reason: Nursing Actions in Insulin Infusion Protocol Enoxaparin Sodium (Enoxaparin Sodium 40 Mg/0.4 Ml Syringe) 40 mg SUBCUT Q24H [facility] Last Admin: 04/29/23 20:04 Dose: 40 mg Documented By: GEOVANNY Gemfibrozil (Gemfibrozil 600 Mg Tablet) 600 mg PO BIDAC [facility] Last Admin: 04/30/23 08:45 Dose: 600 mg Documented By: STAS Hydromorphone HCl (Hydromorphone Hcl 1 Mg/Ml Syringe) 1 mg IVPUSH Q2H PRN; Protocol PRN Reason: Pain, Severe (Pain Scale 7-10) Last Admin: 04/30/23 07:05 Dose: 1 mg Documented By: PATRICIA Piperacillin Sod/Tazobactam (Sod 4.5 gm/ Sodium Chloride) 100 mls @ 200 mls/hr IV Q6H [facility] Last Infusion: 04/30/23 06:02 Dose: 0 mls/hr Documented By: PATRICIA Insulin Human Regular (Myxredlin) 100 unit in 100 mls @ 0 mls/hr IVCONT .Q0M [facility]; Protocol Last Titration: 04/30/23 04:30 Dose: 3 unit/hr, 3 mls/hr Documented By: PATRICIA Co-signed By: MARY Potassium Phosphate (Kphos) 15 mmol in 250 mls @ 62.5 mls/hr IV ONCE ONE Stop: 04/30/23 10:25 Last Admin: 04/30/23 06:49 Dose: 62.5 mls/hr Documented By: PATRICIA Albumin Human (Kedbumin 25 %) 100 mls @ 100 mls/hr IV Q6H [facility] Stop: 05/01/23 01:29 Last Infusion: 04/30/23 07:07 Dose: 0 mls/hr Documented By: PATRICIA Insulin Human Lispro (Insulin Lispro 100 Unit/Ml 3 Ml Vial) 0 unit SUBCUT QIDACHS [facility]; Protocol Lorazepam (Lorazepam 2 Mg/Ml Vial) 1 mg IVPUSH ONCE PRN PRN Reason: Sleep Last Admin: 04/29/23 22:18 Dose: 1 mg Documented By: GEOVANNY Multi-Ingred Medicated Throat [place] (Throat [place], Medicated 177 Ml Bottle) 1 spray MUCOUS MEM Q2H PRN PRN Reason: Sore Throat Last Admin: 04/29/23 22:28 Dose: 1 spray Documented By: GEOVANNY Nicotine Polacrilex (Nicotine Polacrilex 2 Mg Gum) 2 mg BUCCAL Q2H PRN PRN Reason: Nicotine Cravings Last Admin: 04/30/23 02:36 Dose: 2 mg Documented By: PATRICIA Ondansetron HCl (Ondansetron Hcl 4 Mg/2 Ml Vial) 4 mg IVPUSH Q6H PRN PRN Reason: Nausea and Vomiting Last Admin: 04/29/23 15:04 Dose: 4 mg Documented By: STAS Labs 04/30/23 05:34 04/30/23 05:34 Labs: Laboratory Results - last 24 hr 04/29/23 04/29/23 04/29/23 09:06 10:16 11:05 MCV MCH MCHC RDW Plt Count MPV Immature Gran % (Auto) Neut % (Auto) Lymph % (Auto) [place] % (Auto) Eos % (Auto) Baso % (Auto) Lymph # (Auto) [place] # (Auto) Eos # (Auto) Baso # (Auto) Abs Immat Gran (auto) Absolute Neuts (auto) Absolute Nucleated RBC Nucleated RBC % (auto) Neutrophils % (Manual) Band Neutrophils % Lymphocytes % (Manual) Monocytes % (Manual) Abs Neuts (Manual) Lymphocytes # (Manual) Monocytes # (Manual) Smudge Cells Toxic Vacuolation Dohle Bodies Platelet Estimate Plt Morphology Comment RBC Morphology VBG pH VBG pCO2 VBG pO2 VBG HCO3 VBG O2 Saturation VBG Base Excess Anion Gap Estim Creat Clear Calc Estimated GFR POC Glucose 137 H 114 122 H Random Glucose Calcium Phosphorus Magnesium Total Bilirubin AST ALT Alkaline Phosphatase Total Protein Albumin Triglycerides 04/29/23 04/29/23 04/29/23 12:01 13:06 14:16 MCV MCH MCHC RDW Plt Count MPV Immature Gran % (Auto) Neut % (Auto) Lymph % (Auto) [place] % (Auto) Eos % (Auto) Baso % (Auto) Lymph # (Auto) [place] # (Auto) Eos # (Auto) Baso # (Auto) Abs Immat Gran (auto) Absolute Neuts (auto) Absolute Nucleated RBC Nucleated RBC % (auto) Neutrophils % (Manual) Band Neutrophils % Lymphocytes % (Manual) Monocytes % (Manual) Abs Neuts (Manual) Lymphocytes # (Manual) Monocytes # (Manual) Smudge Cells Toxic Vacuolation Dohle Bodies Platelet Estimate Plt Morphology Comment RBC Morphology VBG pH VBG pCO2 VBG pO2 VBG HCO3 VBG O2 Saturation VBG Base Excess Anion Gap Estim Creat Clear Calc Estimated GFR POC Glucose 113 141 H 134 H Random Glucose Calcium Phosphorus Magnesium Total Bilirubin AST ALT Alkaline Phosphatase Total Protein Albumin Triglycerides 04/29/23 04/29/23 04/29/23 15:57 17:51 19:48 MCV MCH MCHC RDW Plt Count MPV Immature Gran % (Auto) Neut % (Auto) Lymph % (Auto) [place] % (Auto) Eos % (Auto) Baso % (Auto) Lymph # (Auto) [place] # (Auto) Eos # (Auto) Baso # (Auto) Abs Immat Gran (auto) Absolute Neuts (auto) Absolute Nucleated RBC Nucleated RBC % (auto) Neutrophils % (Manual) Band Neutrophils % Lymphocytes % (Manual) Monocytes % (Manual) Abs Neuts (Manual) Lymphocytes # (Manual) Monocytes # (Manual) Smudge Cells Toxic Vacuolation Dohle Bodies Platelet Estimate Plt Morphology Comment RBC Morphology VBG pH VBG pCO2 VBG pO2 VBG HCO3 VBG O2 Saturation VBG Base Excess Anion Gap Estim Creat Clear Calc Estimated GFR POC Glucose 179 H 160 H 189 H Random Glucose Calcium Phosphorus Magnesium Total Bilirubin AST ALT Alkaline Phosphatase Total Protein Albumin Triglycerides 04/29/23 04/29/23 04/30/23 21:58 23:50 01:48 MCV MCH MCHC RDW Plt Count MPV Immature Gran % (Auto) Neut % (Auto) Lymph % (Auto) [place] % (Auto) Eos % (Auto) Baso % (Auto) Lymph # (Auto) [place] # (Auto) Eos # (Auto) Baso # (Auto) Abs Immat Gran (auto) Absolute Neuts (auto) Absolute Nucleated RBC Nucleated RBC % (auto) Neutrophils % (Manual) Band Neutrophils % Lymphocytes % (Manual) Monocytes % (Manual) Abs Neuts (Manual) Lymphocytes # (Manual) Monocytes # (Manual) Smudge Cells Toxic Vacuolation Dohle Bodies Platelet Estimate Plt Morphology Comment RBC Morphology VBG pH VBG pCO2 VBG pO2 VBG HCO3 VBG O2 Saturation VBG Base Excess Anion Gap Estim Creat Clear Calc Estimated GFR POC Glucose 176 H 177 H 172 H Random Glucose Calcium Phosphorus Magnesium Total Bilirubin AST ALT Alkaline Phosphatase Total Protein Albumin Triglycerides 04/30/23 04/30/23 04/30/23 04:02 05:34 05:34 MCV 89.4 MCH 31.7 MCHC 35.4 RDW 12.6 Plt Count 126 L D MPV 9.3 L Immature Gran % (Auto) Cancelled Neut % (Auto) Cancelled Lymph % (Auto) Cancelled [place] % (Auto) Cancelled Eos % (Auto) Cancelled Baso % (Auto) Cancelled Lymph # (Auto) Cancelled [place] # (Auto) Cancelled Eos # (Auto) Cancelled Baso # (Auto) Cancelled Abs Immat Gran (auto) Cancelled Absolute Neuts (auto) Cancelled Absolute Nucleated RBC 0.000 Nucleated RBC % (auto) 0.0 Neutrophils % (Manual) 65 Band Neutrophils % 19 H Lymphocytes % (Manual) 9 L Monocytes % (Manual) 7 Abs Neuts (Manual) 7.0 Lymphocytes # (Manual) 0.7 L Monocytes # (Manual) 0.6 Smudge Cells PRESENT Toxic Vacuolation PRESENT Dohle Bodies PRESENT Platelet Estimate SLIGHTLY DECREASED Plt Morphology Comment NORMAL RBC Morphology NORMAL VBG pH VBG pCO2 VBG pO2 VBG HCO3 VBG O2 Saturation VBG Base Excess Anion Gap 12 Estim Creat Clear Calc 94.7 Estimated GFR > 60 POC Glucose 133 H Random Glucose 135 H Calcium 6.7 L D Phosphorus 2.4 L Magnesium 2.1 Total Bilirubin 0.5 AST 21 ALT 22 Alkaline Phosphatase 34 L Total Protein 5.5 L Albumin 2.8 L Triglycerides 903 04/30/23 04/30/23 04/30/23 05:36 05:54 08:07 MCV MCH MCHC RDW Plt Count MPV Immature Gran % (Auto) Neut % (Auto) Lymph % (Auto) [place] % (Auto) Eos % (Auto) Baso % (Auto) Lymph # (Auto) [place] # (Auto) Eos # (Auto) Baso # (Auto) Abs Immat Gran (auto) Absolute Neuts (auto) Absolute Nucleated RBC Nucleated RBC % (auto) Neutrophils % (Manual) Band Neutrophils % Lymphocytes % (Manual) Monocytes % (Manual) Abs Neuts (Manual) Lymphocytes # (Manual) Monocytes # (Manual) Smudge Cells Toxic Vacuolation Dohle Bodies Platelet Estimate Plt Morphology Comment RBC Morphology VBG pH 7.50 H VBG pCO2 38 VBG pO2 78 VBG HCO3 30 H VBG O2 Saturation 96.0 VBG Base Excess 6.9 Anion Gap Estim Creat Clear Calc Estimated GFR POC Glucose 177 H 140 H Random Glucose Calcium Phosphorus Magnesium Total Bilirubin AST ALT Alkaline Phosphatase Total Protein Albumin Triglycerides Procedures Date of Service Date of Service: 04/30/23 Progress Note: A&P Assessment and plan (1) Severe acute pancreatitis: Status: Acute Plan Acute pancreatitis possibly due to hypertriglyceridemia or EtOH, reporting impro vement in his abdominal symptoms. On examination however the patient is markedly distended with tympany to percussion. Findings are suggestive of an ileus. Recommend follow-up CT to evaluate for pancreatic necrosis/abscess. Will continue to monitor. Time Spent With Patient Time: Total time managing care of this patient today ____ minutes. Quality Stroke Does the patient have a stroke diagnosis?: No VTE Prior VTE?: No VTE Risk Level:: Medical - moderate - high VTE Device Contraindication: N/A - Device Ordered VTE Drug Contraindication: N/A - Med Ordered
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
[2023-04-30 10:18] LABS: Glucose, Whole Blood 119 mg/dL (60-115)
[2023-04-30 10:24] LABS: Lipase 266 U/L (8-78)
--- NOTE | 2023-04-30 10:39 | MHC.CM.NN ---
Pt with marked improvement in pancreas enzymes: will initiate diet and transfer to MS floor later today. Pt has family support and community case management from his payor CCA including RN visits. Pt w/long hx of medication noncompliance despite family and CCA CM involvement/reminders. Pt's sister to transport to home. CM to follow for changes in d/c needs.
[2023-04-30] MEDS: iohexoL 350 MG/ML 100 ML INFUS..BTL IV (12:04)
[2023-04-30 13:47] LABS: Glucose, Whole Blood 92 mg/dL (60-115)
[2023-04-30] MEDS: Albumin Human 25 % 100 ML IV ×2 (14:49→19:36)
[2023-04-30 16:54] LABS: Glucose, Whole Blood 183 mg/dL (60-115)
[2023-04-30] MEDS: Insulin Lispro 100 UNIT/ML 3 ML VIAL SUBCUT (16:59)
[2023-04-30] MEDS: Enoxaparin Sodium 40 MG/0.4 ML SYRINGE SUBCUT (20:24)
[2023-04-30 20:34] LABS: Glucose, Whole Blood 133 mg/dL (60-115)
[2023-05-01] MEDS: Melatonin 3 MG TABLET 6 MG PO (00:42)
[2023-05-01] MEDS: Albumin Human 25 % 100 ML IV (00:42)
[2023-05-01] MEDS: Piperacillin Sodium/Tazobactam 4.5 GM in 0.9 % Sodium Chloride 100 ML IV ×4 (00:54→17:15)
[2023-05-01 03:42] VITALS: BP 146/80; PULSE 109; RESP 20; TEMP 36.9; O2SAT 94
[2023-05-01 05:56] LABS: Hematocrit 35.3 % (42.0-52.0); Hemoglobin 11.9 g/dl (14.0-18.0); Mean Corpuscular HGB Conc 33.7 g/dl (31.0-36.0); Mean Corpuscular Hemoglobin 30.8 pg (27.0-33.0); Mean Corpuscular Volume 91.5 fL (80.0-98.0); Mean Platelet Volume 9.5 fL (9.4-12.4); Platelet Count 100 X10*3/uL (160-400); Red Blood Count 3.86 X10*6/uL (4.60-5.80); Red Cell Distribution Width 12.6 % (11.0-16.0)
[2023-05-01 06:00] VITALS: BMI 35.0
[2023-05-01 06:07] LABS: WBC ABN SCTR FOR CBC 1; White Blood Count 7.9 X10*3/uL (4.8-10.8)
[2023-05-01 06:27] LABS: Alanine Aminotransferase 12 U/L (0-40); Albumin Level 3.9 g/dL (3.5-5.0); Alkaline Phosphatase 35 U/L (39-117); Anion Gap 13 (12-20); Aspartate Amino Transferase 15 U/L (5-37); Blood Urea Nitrogen 13 mg/dL (9-16); Calcium 8.1 mg/dL (8.4-10.2); Carbon Dioxide 25 mmol/L (22-29); Chloride 101 mmol/L (96-108); Creatinine Clr Calc Pharmacy 133.3; Estimated Glomerular Filt Rate > 60; Glucose Random 162 mg/dL (60-115); Lipase 138 U/L (8-78); Magnesium 2.1 mg/dL (1.6-2.6); Phosphorus 1.5 mg/dL (2.7-4.5); Potassium 3.4 mmol/L (3.3-5.1); Sodium 136 mmol/L (135-145); Total Protein 6.4 g/dL (6.5-8.0)
[2023-05-01 06:29] LABS: Band Neutrophils Percent 18 % (3-5); Eosinophils Absolute Manual 0.1 X10*3/uL (0.0-0.4); Eosinophils Percent Manual 1 % (0-4); Lymphocytes Absolute Manual 0.5 X10*3/uL (1.2-4.9); Lymphocytes Percent Manual 6 % (20-40); Monocytes Absolute Manual 0.3 X10*3/uL (0.1-1.2); Monocytes Percent Manual 4 % (2-11); Neutrophils Percent Manual 71 % (45-73); RBC Morphology NORMAL
[2023-05-01 06:30] LABS: Platelet Estimate DECREASED (NORMAL); Platelet Morphology Comment NORMAL
[2023-05-01 06:31] LABS: Dohle Bodies PRESENT
[2023-05-01 06:34] LABS: Toxic Granulation PRESENT
[2023-05-01 07:17] VITALS: BP 152/92; PULSE 113; RESP 22; TEMP 36.5; O2SAT 95
[2023-05-01 07:56] LABS: Glucose, Whole Blood 181 mg/dL (60-115)
[2023-05-01] MEDS: Insulin Lispro 100 UNIT/ML 3 ML VIAL SUBCUT ×4 (08:10→20:53)
[2023-05-01] MEDS: gemfibroziL 600 MG TABLET PO ×2 (08:10→17:12)
--- NOTE | 2023-05-01 09:32 | HO.PM.IMPN ---
Subjective Subjective Date of Service: 05/01/23 Interval History: sob Physical Exam Vital Signs: Vital Signs: Last Vital Signs Temp 97.7 F 05/01/23 07:17 Pulse 113 H 05/01/23 07:17 Resp 22 H 05/01/23 07:17 BP 152/92 H 05/01/23 07:17 Pulse Ox 95 05/01/23 07:17 O2 Del Method Nasal Cannula 05/01/23 07:17 O2 Flow Rate 2 05/01/23 07:17 BMI result Body Mass Index 35.0 alert, anxious, agitated, diminshed breath sounds, abd tender Objective Data Active Medications Dextrose (Dextrose 50 % 25 Gm/50 Ml Syringe) 25 gm IVPUSH Q15M PRN PRN Reason: Nursing Actions in Insulin Infusion Protocol Enoxaparin Sodium (Enoxaparin Sodium 40 Mg/0.4 Ml Syringe) 40 mg SUBCUT Q24H [facility] Last Admin: 04/30/23 20:24 Dose: 40 mg Documented By: TONE Gemfibrozil (Gemfibrozil 600 Mg Tablet) 600 mg PO BIDAC [facility] Last Admin: 05/01/23 08:10 Dose: 600 mg Documented By: MALIKA Hydromorphone HCl (Hydromorphone Hcl 1 Mg/Ml Syringe) 1 mg IVPUSH Q2H PRN; Protocol PRN Reason: Pain, Severe (Pain Scale 7-10) Last Admin: 04/30/23 20:24 Dose: 1 mg Documented By: TONE Piperacillin Sod/Tazobactam (Sod 4.5 gm/ Sodium Chloride) 100 mls @ 200 mls/hr IV Q6H [facility] Last Infusion: 05/01/23 08:10 Dose: 0 mls/hr Documented By: MALIKA Insulin Human Lispro (Insulin Lispro 100 Unit/Ml 3 Ml Vial) 0 unit SUBCUT QIDACHS [facility]; Protocol Last Admin: 05/01/23 08:10 Dose: 2 unit Documented By: MALIKA Lorazepam (Lorazepam 2 Mg/Ml Vial) 1 mg IVPUSH ONCE PRN PRN Reason: Sleep Last Admin: 04/29/23 22:18 Dose: 1 mg Documented By: GEOVANNY Lorazepam (Lorazepam 2 Mg/Ml Vial) 0.5 mg IVPUSH Q4H PRN PRN Reason: Anxiety Melatonin (Melatonin 3 Mg Tablet) 6 mg PO BEDTIME PRN PRN Reason: insomnia Last Admin: 05/01/23 00:42 Dose: 6 mg Documented By: PAT Multi-Ingred Medicated Throat [place] (Throat [place], Medicated 177 Ml Bottle) 1 spray MUCOUS MEM Q2H PRN PRN Reason: Sore Throat Last Admin: 04/29/23 22:28 Dose: 1 spray Documented By: GEOVANNY Nicotine Polacrilex (Nicotine Polacrilex 2 Mg Gum) 2 mg BUCCAL Q2H PRN PRN Reason: Nicotine Cravings Last Admin: 04/30/23 02:36 Dose: 2 mg Documented By: PATRICIA Ondansetron HCl (Ondansetron Hcl 4 Mg/2 Ml Vial) 4 mg IVPUSH Q6H PRN PRN Reason: Nausea and Vomiting Last Admin: 04/29/23 15:04 Dose: 4 mg Documented By: STAS Labs 05/01/23 05:24 05/01/23 05:24 Labs: Laboratory Results - last 24 hr 04/30/23 04/30/23 04/30/23 05:34 10:15 12:15 MCV MCH MCHC RDW Plt Count MPV Immature Gran % (Auto) Neut % (Auto) Lymph % (Auto) [place] % (Auto) Eos % (Auto) Baso % (Auto) Lymph # (Auto) [place] # (Auto) Eos # (Auto) Baso # (Auto) Abs Immat Gran (auto) Absolute Neuts (auto) Absolute Nucleated RBC Nucleated RBC % (auto) Neutrophils % (Manual) Band Neutrophils % Lymphocytes % (Manual) Monocytes % (Manual) Eosinophils % (Manual) Abs Neuts (Manual) Lymphocytes # (Manual) Monocytes # (Manual) Eosinophils # (Manual) Toxic Granulation Dohle Bodies Platelet Estimate Plt Morphology Comment RBC Morphology Anion Gap Estim Creat Clear Calc Estimated GFR POC Glucose 119 H 92 Random Glucose Calcium Phosphorus Magnesium Total Bilirubin AST ALT Alkaline Phosphatase Total Protein Albumin Lipase 266 H 04/30/23 04/30/23 05/01/23 16:50 20:03 05:24 MCV 91.5 MCH 30.8 MCHC 33.7 RDW 12.6 Plt Count 100 L MPV 9.5 Immature Gran % (Auto) Cancelled Neut % (Auto) Cancelled Lymph % (Auto) Cancelled [place] % (Auto) Cancelled Eos % (Auto) Cancelled Baso % (Auto) Cancelled Lymph # (Auto) Cancelled [place] # (Auto) Cancelled Eos # (Auto) Cancelled Baso # (Auto) Cancelled Abs Immat Gran (auto) Cancelled Absolute Neuts (auto) Cancelled Absolute Nucleated RBC 0.000 Nucleated RBC % (auto) 0.0 Neutrophils % (Manual) 71 Band Neutrophils % 18 H Lymphocytes % (Manual) 6 L Monocytes % (Manual) 4 Eosinophils % (Manual) 1 Abs Neuts (Manual) 7.0 Lymphocytes # (Manual) 0.5 L Monocytes # (Manual) 0.3 Eosinophils # (Manual) 0.1 Toxic Granulation PRESENT Dohle Bodies PRESENT Platelet Estimate DECREASED Plt Morphology Comment NORMAL RBC Morphology NORMAL Anion Gap Estim Creat Clear Calc Estimated GFR POC Glucose 183 H 133 H Random Glucose Calcium Phosphorus Magnesium Total Bilirubin AST ALT Alkaline Phosphatase Total Protein Albumin Lipase 05/01/23 05/01/23 05:24 07:50 MCV MCH MCHC RDW Plt Count MPV Immature Gran % (Auto) Neut % (Auto) Lymph % (Auto) [place] % (Auto) Eos % (Auto) Baso % (Auto) Lymph # (Auto) [place] # (Auto) Eos # (Auto) Baso # (Auto) Abs Immat Gran (auto) Absolute Neuts (auto) Absolute Nucleated RBC Nucleated RBC % (auto) Neutrophils % (Manual) Band Neutrophils % Lymphocytes % (Manual) Monocytes % (Manual) Eosinophils % (Manual) Abs Neuts (Manual) Lymphocytes # (Manual) Monocytes # (Manual) Eosinophils # (Manual) Toxic Granulation Dohle Bodies Platelet Estimate Plt Morphology Comment RBC Morphology Anion Gap 13 Estim Creat Clear Calc 133.3 Estimated GFR > 60 POC Glucose 181 H Random Glucose 162 H Calcium 8.1 L D Phosphorus 1.5 L Magnesium 2.1 Total Bilirubin 1.0 AST 15 ALT 12 Alkaline Phosphatase 35 L Total Protein 6.4 L Albumin 3.9 Lipase 138 H Assessment and Plan (1) Hypertriglyceridemia: Status: Acute Plan 42M PMH htn, hypertriglyceridemia, TBI, obesity, presented with abd pain due to pacreatitis from hyperTG, admitted to ICU, improved with insulin, now downgraded to medical floor, and complicated by acute hypoxia acute pancreatitis due to hypertriglyceridemia improving, advance to low fat solids pain control acute hypoxic respiratory failure due to fluid overload iv lasix, monitor obesity weight loss htn lisinopril, amlodipine dvt prophylaxis - lovenox full code reason for continued hospitalization:in pain, hypoxic Time Spent With Patient Time: Total time managing care of this patient today ____ minutes. Quality Stroke Does the patient have a stroke diagnosis?: No VTE Prior VTE?: No VTE Risk Level:: Medical - moderate - high VTE Device Contraindication: N/A - Device Ordered VTE Drug Contraindication: N/A - Med Ordered
--- NOTE | 2023-05-01 09:34 | PM.PNGS ---
Subjective Subjective Date of Service: 05/05/23 Interval history: denies abdl pain but appears restless, anxious says he wants to go home as per nurse - mental status has been like that Physical Exam Vital Signs: Vital Signs: Last Vital Signs Temp 97.7 F 05/01/23 07:17 Pulse 113 H 05/01/23 07:17 Resp 22 H 05/01/23 07:17 BP 152/92 H 05/01/23 07:17 Pulse Ox 95 05/01/23 07:17 O2 Del Method Nasal Cannula 05/01/23 07:17 O2 Flow Rate 2 05/01/23 07:17 BMI result Body Mass Index 35.0 Const: Other: very anxious Resp: Effort & Inspection: normal respiratory effort Cardio: Rate: tachycardic GI: Palpation (GI): Soft to palpation, Firmness to palpation present (GI), nontender and no guarding Objective Data Active Medications Dextrose (Dextrose 50 % 25 Gm/50 Ml Syringe) 25 gm IVPUSH Q15M PRN PRN Reason: Nursing Actions in Insulin Infusion Protocol Enoxaparin Sodium (Enoxaparin Sodium 40 Mg/0.4 Ml Syringe) 40 mg SUBCUT Q24H [facility] Last Admin: 04/30/23 20:24 Dose: 40 mg Documented By: TONE Gemfibrozil (Gemfibrozil 600 Mg Tablet) 600 mg PO BIDAC [facility] Last Admin: 05/01/23 08:10 Dose: 600 mg Documented By: MALIKA Hydromorphone HCl (Hydromorphone Hcl 1 Mg/Ml Syringe) 1 mg IVPUSH Q2H PRN; Protocol PRN Reason: Pain, Severe (Pain Scale 7-10) Last Admin: 04/30/23 20:24 Dose: 1 mg Documented By: TONE Piperacillin Sod/Tazobactam (Sod 4.5 gm/ Sodium Chloride) 100 mls @ 200 mls/hr IV Q6H [facility] Last Infusion: 05/01/23 08:10 Dose: 0 mls/hr Documented By: MALIKA Insulin Human Lispro (Insulin Lispro 100 Unit/Ml 3 Ml Vial) 0 unit SUBCUT QIDACHS [facility]; Protocol Last Admin: 05/01/23 08:10 Dose: 2 unit Documented By: MALIKA Lorazepam (Lorazepam 2 Mg/Ml Vial) 1 mg IVPUSH ONCE PRN PRN Reason: Sleep Last Admin: 04/29/23 22:18 Dose: 1 mg Documented By: GEOVANNY Lorazepam (Lorazepam 2 Mg/Ml Vial) 0.5 mg IVPUSH Q4H PRN PRN Reason: Anxiety Melatonin (Melatonin 3 Mg Tablet) 6 mg PO BEDTIME PRN PRN Reason: insomnia Last Admin: 05/01/23 00:42 Dose: 6 mg Documented By: PAT Multi-Ingred Medicated Throat [place] (Throat [place], Medicated 177 Ml Bottle) 1 spray MUCOUS MEM Q2H PRN PRN Reason: Sore Throat Last Admin: 04/29/23 22:28 Dose: 1 spray Documented By: GEOVANNY Nicotine Polacrilex (Nicotine Polacrilex 2 Mg Gum) 2 mg BUCCAL Q2H PRN PRN Reason: Nicotine Cravings Last Admin: 04/30/23 02:36 Dose: 2 mg Documented By: PATRICIA Ondansetron HCl (Ondansetron Hcl 4 Mg/2 Ml Vial) 4 mg IVPUSH Q6H PRN PRN Reason: Nausea and Vomiting Last Admin: 04/29/23 15:04 Dose: 4 mg Documented By: STAS Labs 05/01/23 05:24 05/01/23 05:24 Labs: Laboratory Results - last 24 hr 04/30/23 04/30/23 04/30/23 05:34 10:15 12:15 MCV MCH MCHC RDW Plt Count MPV Immature Gran % (Auto) Neut % (Auto) Lymph % (Auto) [place] % (Auto) Eos % (Auto) Baso % (Auto) Lymph # (Auto) [place] # (Auto) Eos # (Auto) Baso # (Auto) Abs Immat Gran (auto) Absolute Neuts (auto) Absolute Nucleated RBC Nucleated RBC % (auto) Neutrophils % (Manual) Band Neutrophils % Lymphocytes % (Manual) Monocytes % (Manual) Eosinophils % (Manual) Abs Neuts (Manual) Lymphocytes # (Manual) Monocytes # (Manual) Eosinophils # (Manual) Toxic Granulation Dohle Bodies Platelet Estimate Plt Morphology Comment RBC Morphology Anion Gap Estim Creat Clear Calc Estimated GFR POC Glucose 119 H 92 Random Glucose Calcium Phosphorus Magnesium Total Bilirubin AST ALT Alkaline Phosphatase Total Protein Albumin Lipase 266 H 04/30/23 04/30/23 05/01/23 16:50 20:03 05:24 MCV 91.5 MCH 30.8 MCHC 33.7 RDW 12.6 Plt Count 100 L MPV 9.5 Immature Gran % (Auto) Cancelled Neut % (Auto) Cancelled Lymph % (Auto) Cancelled [place] % (Auto) Cancelled Eos % (Auto) Cancelled Baso % (Auto) Cancelled Lymph # (Auto) Cancelled [place] # (Auto) Cancelled Eos # (Auto) Cancelled Baso # (Auto) Cancelled Abs Immat Gran (auto) Cancelled Absolute Neuts (auto) Cancelled Absolute Nucleated RBC 0.000 Nucleated RBC % (auto) 0.0 Neutrophils % (Manual) 71 Band Neutrophils % 18 H Lymphocytes % (Manual) 6 L Monocytes % (Manual) 4 Eosinophils % (Manual) 1 Abs Neuts (Manual) 7.0 Lymphocytes # (Manual) 0.5 L Monocytes # (Manual) 0.3 Eosinophils # (Manual) 0.1 Toxic Granulation PRESENT Dohle Bodies PRESENT Platelet Estimate DECREASED Plt Morphology Comment NORMAL RBC Morphology NORMAL Anion Gap Estim Creat Clear Calc Estimated GFR POC Glucose 183 H 133 H Random Glucose Calcium Phosphorus Magnesium Total Bilirubin AST ALT Alkaline Phosphatase Total Protein Albumin Lipase 05/01/23 05/01/23 05:24 07:50 MCV MCH MCHC RDW Plt Count MPV Immature Gran % (Auto) Neut % (Auto) Lymph % (Auto) [place] % (Auto) Eos % (Auto) Baso % (Auto) Lymph # (Auto) [place] # (Auto) Eos # (Auto) Baso # (Auto) Abs Immat Gran (auto) Absolute Neuts (auto) Absolute Nucleated RBC Nucleated RBC % (auto) Neutrophils % (Manual) Band Neutrophils % Lymphocytes % (Manual) Monocytes % (Manual) Eosinophils % (Manual) Abs Neuts (Manual) Lymphocytes # (Manual) Monocytes # (Manual) Eosinophils # (Manual) Toxic Granulation Dohle Bodies Platelet Estimate Plt Morphology Comment RBC Morphology Anion Gap 13 Estim Creat Clear Calc 133.3 Estimated GFR > 60 POC Glucose 181 H Random Glucose 162 H Calcium 8.1 L D Phosphorus 1.5 L Magnesium 2.1 Total Bilirubin 1.0 AST 15 ALT 12 Alkaline Phosphatase 35 L Total Protein 6.4 L Albumin 3.9 Lipase 138 H Procedures Date of Service Date of Service: 05/05/23 Progress Note: A&P Assessment and plan (1) Severe acute pancreatitis: Status: Acute Assessment and Plan: c/w ETOH pancreatitis ffup CT yesterday shows more inflammatory changes around pancreas, ascites with nonocclusive thrombus in splenic vein may be in withdrawal? very anxious, restless kdiney function ok supportive tx bowel rest, IVF will follow Time Spent With Patient Time: Total time managing care of this patient today ____ minutes. Quality Stroke Does the patient have a stroke diagnosis?: No VTE Prior VTE?: No VTE Risk Level:: Medical - moderate - high VTE Device Contraindication: N/A - Device Ordered VTE Drug Contraindication: N/A - Med Ordered
[2023-05-01] MEDS: LORazepam 2 MG/ML VIAL 1 MG IVPUSH (09:42)
[2023-05-01] MEDS: Furosemide 100 MG/10 ML VIAL 60 MG IVPUSH (09:42)
[2023-05-01] MEDS: amLODIPine Besylate 10 MG TABLET PO (09:50)
[2023-05-01 11:00] VITALS: BP 169/100; PULSE 115; RESP 22; TEMP 36.6; O2SAT 93
[2023-05-01 12:15] LABS: Glucose, Whole Blood 173 mg/dL (60-115)
[2023-05-01 15:01] VITALS: BP 153/93; PULSE 111; RESP 20; TEMP 36.3; O2SAT 95
[2023-05-01 16:06] LABS: Glucose, Whole Blood 185 mg/dL (60-115)
[2023-05-01] MEDS: HYDROmorphone HCl 1 MG/ML SYRINGE IVPUSH ×2 (16:27→20:52)
[2023-05-01] MEDS: LORazepam 2 MG/ML VIAL 0.5 MG IVPUSH (17:13)
[2023-05-01 19:08] VITALS: BP 131/83; PULSE 114; RESP 20; TEMP 36.9; O2SAT 91
[2023-05-01 20:19] LABS: Glucose, Whole Blood 162 mg/dL (60-115)
[2023-05-01] MEDS: Enoxaparin Sodium 40 MG/0.4 ML SYRINGE SUBCUT (20:52)
[2023-05-01] MEDS: Atorvastatin Calcium 80 MG TABLET PO (20:53)
[2023-05-01 23:48] VITALS: BP 153/88; PULSE 120; RESP 20; TEMP 36.5; O2SAT 92
[2023-05-02] VITALS (7 sets, daily range): BP systolic 106–163; BP diastolic 75–91; PULSE 118–133; RESP 18–22; TEMP 36.7–37.4; O2SAT 90–94; BMI 32.0
[2023-05-02] MEDS: Piperacillin Sodium/Tazobactam 4.5 GM in 0.9 % Sodium Chloride 100 ML IV ×5 (00:22→23:47)
[2023-05-02] MEDS: LORazepam 2 MG/ML VIAL 0.5 MG IVPUSH ×2 (02:41→23:46)
--- NOTE | 2023-05-02 03:30 | MHC.PIE ---
P.?WITHDRAWAL I.PT RESTLESS,CONFUSED,TRYING TO CLIMB OOB,MONITOR STACH,HR 120'S.GIVEN PRN DOSE OF ATIVAN 0.5MG IV WITH NO EFFECT. NOTIFIED,? WITHDRAWAL FROM ETOH. ORDERED ZYPREXA 10 MG IM.[facility] UNWILLING TO VERIFY,STATING ZYPREXA AFTER ATIVAN HAS HIGH RISK FOR RESP DEPRESSION.DR ELDER UPDATED. ORDERED ATIVAN 1MG IV X 1.MED GIVEN E.CONT TO MONITOR
[2023-05-02] MEDS: LORazepam 2 MG/ML VIAL 1 MG IVPUSH (04:40)
--- NOTE | 2023-05-02 05:00 | MHC.PIE ---
P.RESTLESS I.REMAINS RESTLESS,CLIMBING OOB FREQUENTLY.DR ELDER UPDATED,ORDER FOR HALDOL 5MG IM STAT GIVEN.UPDRAFT GIVEN PT HAVING EXPIRATORY WHEEZING. E.GOOD EFFECT FROM HALDOL AND UPDRAFT.PT RESTING QUIETLY.CONT TO MONITOR
[2023-05-02] MEDS: Haloperidol Lactate 5 MG/ML VIAL IM ×2 (05:15→20:08)
[2023-05-02] MEDS: Albuterol/Iprat 2.5/0.5MG 3 ML AMPUL.NEB INHALE (05:24)
[2023-05-02 05:43] LABS: Hematocrit 37.5 % (42.0-52.0); Hemoglobin 12.7 g/dl (14.0-18.0); Mean Corpuscular HGB Conc 33.9 g/dl (31.0-36.0); Mean Corpuscular Hemoglobin 30.8 pg (27.0-33.0); Mean Platelet Volume 9.6 fL (9.4-12.4); Platelet Count 131 X10*3/uL (160-400); Red Blood Count 4.12 X10*6/uL (4.60-5.80); Red Cell Distribution Width 12.5 % (11.0-16.0)
[2023-05-02 05:58] LABS: Anion Gap 14 (12-20); Blood Urea Nitrogen 14 mg/dL (9-16); Calcium 9.6 mg/dL (8.4-10.2); Carbon Dioxide 24 mmol/L (22-29); Chloride 102 mmol/L (96-108); Estimated Glomerular Filt Rate > 60; Glucose Fasting 184 mg/dL (60-99); Potassium 3.7 mmol/L (3.3-5.1); Sodium 136 mmol/L (135-145)
[2023-05-02 08:12] LABS: Glucose, Whole Blood 212 mg/dL (60-115)
[2023-05-02] MEDS: PHENobarbitaL sodium 130 MG/ML IM ONCE 142 MG IM (08:18)
[2023-05-02] MEDS: Insulin Lispro 100 UNIT/ML 3 ML VIAL SUBCUT ×4 (08:20→21:04)
[2023-05-02] MEDS: gemfibroziL 600 MG TABLET PO ×2 (08:21→16:59)
[2023-05-02] MEDS: Thiamine HCL 100 MG TABLET PO (08:21)
[2023-05-02] MEDS: lisinopriL 20 MG TABLET PO (08:21)
[2023-05-02] MEDS: FLUoxetine HCl 20 MG CAPSULE PO (08:21)
[2023-05-02] MEDS: amLODIPine Besylate 10 MG TABLET PO (08:21)
[2023-05-02] MEDS: Folic Acid 1 MG TABLET PO (08:21)
--- NOTE | 2023-05-02 08:41 | PC.NURSE ---
pt increasingly agitated at beginning of shift. pt recieved two doses of IV ativan and 1 dose of IM haldol overnight according to night shift manager RN. Patient alert to self but denies that he is in the hospital and appears to be hallucinating. The physician was promptly notified and a sitter was placed in the room for the patient's safety. Patient has been started on phenobarbital. First pheno IM dose of 142mg given at 08:30. Patient is currently laying in bed. vitals are as follows 131, 18,98.6, 161/91, 93% on 1L NC.
--- NOTE | 2023-05-02 08:53 | HO.PM.IMPN ---
Subjective Subjective Date of Service: 05/02/23 Interval History: confused, hallucinating, abd pain Physical Exam Vital Signs: Vital Signs: Last Vital Signs Temp 98.6 F 05/02/23 08:00 Pulse 123 H 05/02/23 08:00 Resp 18 05/02/23 08:00 BP 161/91 H 05/02/23 08:00 Pulse Ox 93 05/02/23 08:00 O2 Del Method Nasal Cannula 05/02/23 08:00 O2 Flow Rate 1 05/02/23 08:00 BMI result Body Mass Index 32.0 confused, agitated, hallucinations, lethargic Objective Data Active Medications Albuterol/Ipratropium (Albuterol/Iprat 2.5/0.5mg 3 Ml Ampul.Neb) 3 ml INHALE Q4H PRN PRN Reason: Wheezing Last Admin: 05/02/23 05:24 Dose: 3 ml Documented By: EARNEST Amlodipine Besylate (Amlodipine Besylate 10 Mg Tablet) 10 mg PO DAILY [facility]; Protocol Last Admin: 05/02/23 08:21 Dose: 10 mg Documented By: MALIKA Atorvastatin Calcium (Atorvastatin Calcium 80 Mg Tablet) 80 mg PO BEDTIME [facility] Last Admin: 05/01/23 20:53 Dose: 80 mg Documented By: JOHN Dextrose (Dextrose 50 % 25 Gm/50 Ml Syringe) 25 gm IVPUSH Q15M PRN PRN Reason: Nursing Actions in Insulin Infusion Protocol Enoxaparin Sodium (Enoxaparin Sodium 40 Mg/0.4 Ml Syringe) 40 mg SUBCUT Q24H [facility] Last Admin: 05/01/23 20:52 Dose: 40 mg Documented By: JOHN Fluoxetine HCl (Fluoxetine Hcl 20 Mg Capsule) 20 mg PO DAILY [facility] Last Admin: 05/02/23 08:21 Dose: 20 mg Documented By: MALIKA Folic Acid (Folic Acid 1 Mg Tablet) 1 mg PO DAILY [facility] Last Admin: 05/02/23 08:21 Dose: 1 mg Documented By: MALIKA Gemfibrozil (Gemfibrozil 600 Mg Tablet) 600 mg PO BIDAC [facility] Last Admin: 05/02/23 08:21 Dose: 600 mg Documented By: MALIKA Hydromorphone HCl (Hydromorphone Hcl 1 Mg/Ml Syringe) 1 mg IVPUSH Q2H PRN; Protocol PRN Reason: Pain, Severe (Pain Scale 7-10) Last Admin: 05/01/23 20:52 Dose: 1 mg Documented By: JOHN Piperacillin Sod/Tazobactam (Sod 4.5 gm/ Sodium Chloride) 100 mls @ 200 mls/hr IV Q6H [facility] Last Infusion: 05/02/23 07:24 Dose: 0 mls/hr Documented By: MALIKA Insulin Human Lispro (Insulin Lispro 100 Unit/Ml 3 Ml Vial) 0 unit SUBCUT QIDACHS [facility]; Protocol Last Admin: 05/02/23 08:20 Dose: 4 unit Documented By: MALIKA Lisinopril (Lisinopril 20 Mg Tablet) 20 mg PO DAILY [facility]; Protocol Last Admin: 05/02/23 08:21 Dose: 20 mg Documented By: MALIKA Lorazepam (Lorazepam 2 Mg/Ml Vial) 1 mg IVPUSH ONCE PRN PRN Reason: Sleep Last Admin: 05/01/23 09:42 Dose: 0.5 mg Documented By: MALIKA Comments: Scanned under wrong Ativan order. patient was given 0.5mg PRN dose on 05/01/2023 at 0942. waste of excess 1.5 mg witnessed by another RN in [facility]. Lorazepam (Lorazepam 2 Mg/Ml Vial) 0.5 mg IVPUSH Q4H PRN PRN Reason: Anxiety Last Admin: 05/02/23 02:41 Dose: 0.5 mg Documented By: COLLEEN Melatonin (Melatonin 3 Mg Tablet) 6 mg PO BEDTIME PRN PRN Reason: insomnia Last Admin: 05/01/23 00:42 Dose: 6 mg Documented By: PAT Multi-Ingred Medicated Throat Mckenzie (Throat [place]ckenzie, Medicated 177 Ml Bottle) 1 spray MUCOUS MEM Q2H PRN PRN Reason: Sore Throat Last Admin: 04/29/23 22:28 Dose: 1 spray Documented By: GEOVANNY Nicotine Polacrilex (Nicotine Polacrilex 2 Mg Gum) 2 mg BUCCAL Q2H PRN PRN Reason: Nicotine Cravings Last Admin: 04/30/23 02:36 Dose: 2 mg Documented By: HO.DAHLAN Ondansetron HCl (Ondansetron Hcl 4 Mg/2 Ml Vial) 4 mg IVPUSH Q6H PRN PRN Reason: Nausea and Vomiting Last Admin: 04/29/23 15:04 Dose: 4 mg Documented By: STAS Pharmacy Consult (Consult Rx Etoh Phenob Im/Po) 1 each MISCELLANE ONCE PRN; Protocol PRN Reason: Consult order Phenobarbital (Phenobarbital 15 Mg Tablet) 45 mg PO BID [facility] Stop: 05/04/23 21:01 Phenobarbital (Phenobarbital 15 Mg Tablet) 15 mg PO BID [facility] Stop: 05/06/23 21:01 Phenobarbital (Phenobarbital 15 Mg Tablet) 15 mg PO DAILY [facility] Stop: 05/08/23 09:01 Phenobarbital Sodium (Phenobarbital Sodium 130 Mg/Ml Vial Im Q3hx2) 107 mg IM Q3H [facility] Stop: 05/02/23 14:01 Thiamine HCl (Thiamine Hcl 100 Mg Tablet) 100 mg PO DAILY [facility] Last Admin: 05/02/23 08:21 Dose: 100 mg Documented By: MALIKA Labs 05/02/23 05:27 05/02/23 05:27 Labs: Laboratory Results - last 24 hr 05/01/23 05/01/23 05/01/23 10:58 16:02 20:14 MCV MCH MCHC RDW Plt Count MPV Absolute Nucleated RBC Nucleated RBC % (auto) Anion Gap Estim Creat Clear Calc Estimated GFR POC Glucose 173 H 185 H 162 H Fasting Glucose Calcium 05/02/23 05/02/23 05/02/23 05:27 05:27 08:04 MCV 91.0 MCH 30.8 MCHC 33.9 RDW 12.5 Plt Count 131 L D MPV 9.6 Absolute Nucleated RBC 0.000 Nucleated RBC % (auto) 0.0 Anion Gap 14 Estim Creat Clear Calc 131.0 Estimated GFR > 60 POC Glucose 212 H Fasting Glucose 184 H Calcium 9.6 D Assessment and Plan (1) Hypertriglyceridemia: Status: Acute Plan 42M PMH htn, hypertriglyceridemia, TBI, obesity, presented with abd pain due to pacreatitis from hyperTG, admitted to ICU, improved with insulin, now downgraded to medical floor, and complicated by acute hypoxia acute pancreatitis due to hypertriglyceridemia worse inflammation on cT, will deescalate to clears pain control acute metabolic encephaloapthy ?etoh dependence with withdrawal phenobarb, ciwa acute hypoxic respiratory failure due to fluid overload resolved obesity weight loss htn lisinopril, amlodipine dvt prophylaxis - lovenox full code reason for continued hospitalization:in pain, hypoxic, ams Time Spent With Patient Time: Total time managing care of this patient today ____ minutes. Quality Stroke Does the patient have a stroke diagnosis?: No VTE Prior VTE?: No VTE Risk Level:: Medical - moderate - high VTE Device Contraindication: N/A - Device Ordered VTE Drug Contraindication: N/A - Med Ordered
--- NOTE | 2023-05-02 10:17 | PM.PNGS ---
Subjective Subjective Date of Service: 05/02/23 Interval history: still with restlessness denies abdl pain keeps asking to be discharged seems confused Physical Exam Vital Signs: Vital Signs: Last Vital Signs Temp 98.6 F 05/02/23 08:00 Pulse 123 H 05/02/23 08:00 Resp 18 05/02/23 08:00 BP 161/91 H 05/02/23 08:00 Pulse Ox 93 05/02/23 08:00 O2 Del Method Nasal Cannula 05/02/23 08:00 O2 Flow Rate 1 05/02/23 08:00 BMI result Body Mass Index 32.0 Const: Other: appears anvious and confused, currently sedated Resp: Effort & Inspection: normal respiratory effort Cardio: Rate: tachycardic GI: Inspection: Yes distended Palpation (GI): nontender and no guarding Objective Data Active Medications Albuterol/Ipratropium (Albuterol/Iprat 2.5/0.5mg 3 Ml Ampul.Neb) 3 ml INHALE Q4H PRN PRN Reason: Wheezing Last Admin: 05/02/23 05:24 Dose: 3 ml Documented By: EARNEST Amlodipine Besylate (Amlodipine Besylate 10 Mg Tablet) 10 mg PO DAILY [facility]; Protocol Last Admin: 05/02/23 08:21 Dose: 10 mg Documented By: MALIKA Atorvastatin Calcium (Atorvastatin Calcium 80 Mg Tablet) 80 mg PO BEDTIME [facility] Last Admin: 05/01/23 20:53 Dose: 80 mg Documented By: JOHN Dextrose (Dextrose 50 % 25 Gm/50 Ml Syringe) 25 gm IVPUSH Q15M PRN PRN Reason: Nursing Actions in Insulin Infusion Protocol Enoxaparin Sodium (Enoxaparin Sodium 40 Mg/0.4 Ml Syringe) 40 mg SUBCUT Q24H [facility] Last Admin: 05/01/23 20:52 Dose: 40 mg Documented By: JOHN Fluoxetine HCl (Fluoxetine Hcl 20 Mg Capsule) 20 mg PO DAILY [facility] Last Admin: 05/02/23 08:21 Dose: 20 mg Documented By: MALIKA Folic Acid (Folic Acid 1 Mg Tablet) 1 mg PO DAILY [facility] Last Admin: 05/02/23 08:21 Dose: 1 mg Documented By: MALIKA Gemfibrozil (Gemfibrozil 600 Mg Tablet) 600 mg PO BIDAC [facility] Last Admin: 05/02/23 08:21 Dose: 600 mg Documented By: MALIKA Hydromorphone HCl (Hydromorphone Hcl 1 Mg/Ml Syringe) 1 mg IVPUSH Q2H PRN; Protocol PRN Reason: Pain, Severe (Pain Scale 7-10) Last Admin: 05/01/23 20:52 Dose: 1 mg Documented By: JOHN Piperacillin Sod/Tazobactam (Sod 4.5 gm/ Sodium Chloride) 100 mls @ 200 mls/hr IV Q6H [facility] Last Infusion: 05/02/23 07:24 Dose: 0 mls/hr Documented By: MALIKA Insulin Human Lispro (Insulin Lispro 100 Unit/Ml 3 Ml Vial) 0 unit SUBCUT QIDACHS [facility]; Protocol Last Admin: 05/02/23 08:20 Dose: 4 unit Documented By: MALIKA Lisinopril (Lisinopril 20 Mg Tablet) 20 mg PO DAILY [facility]; Protocol Last Admin: 05/02/23 08:21 Dose: 20 mg Documented By: MALIKA Lorazepam (Lorazepam 2 Mg/Ml Vial) 1 mg IVPUSH ONCE PRN PRN Reason: Sleep Last Admin: 05/01/23 09:42 Dose: 0.5 mg Documented By: MALIKA Comments: Scanned under wrong Ativan order. patient was given 0.5mg PRN dose on 05/01/2023 at 0942. waste of excess 1.5 mg witnessed by another RN in [facility]. Lorazepam (Lorazepam 2 Mg/Ml Vial) 0.5 mg IVPUSH Q4H PRN PRN Reason: Anxiety Last Admin: 05/02/23 02:41 Dose: 0.5 mg Documented By: COLLEEN Melatonin (Melatonin 3 Mg Tablet) 6 mg PO BEDTIME PRN PRN Reason: insomnia Last Admin: 05/01/23 00:42 Dose: 6 mg Documented By: PAT Multi-Ingred Medicated Throat Welches (Throat Welches, Medicated 177 Ml Bottle) 1 spray MUCOUS MEM Q2H PRN PRN Reason: Sore Throat Last Admin: 04/29/23 22:28 Dose: 1 spray Documented By: HO.NAUMOC Nicotine Polacrilex (Nicotine Polacrilex 2 Mg Gum) 2 mg BUCCAL Q2H PRN PRN Reason: Nicotine Cravings Last Admin: 04/30/23 02:36 Dose: 2 mg Documented By: PATRICIA Ondansetron HCl (Ondansetron Hcl 4 Mg/2 Ml Vial) 4 mg IVPUSH Q6H PRN PRN Reason: Nausea and Vomiting Last Admin: 04/29/23 15:04 Dose: 4 mg Documented By: STAS Pharmacy Consult (Consult Rx Etoh Phenob Im/Po) 1 each MISCELLANE ONCE PRN; Protocol PRN Reason: Consult order Phenobarbital (Phenobarbital 15 Mg Tablet) 45 mg PO BID [facility] Stop: 05/04/23 21:01 Phenobarbital (Phenobarbital 15 Mg Tablet) 15 mg PO BID [facility] Stop: 05/06/23 21:01 Phenobarbital (Phenobarbital 15 Mg Tablet) 15 mg PO DAILY [facility] Stop: 05/08/23 09:01 Phenobarbital Sodium (Phenobarbital Sodium 130 Mg/Ml Vial Im Q3hx2) 107 mg IM Q3H [facility] Stop: 05/02/23 14:01 Thiamine HCl (Thiamine Hcl 100 Mg Tablet) 100 mg PO DAILY [facility] Last Admin: 05/02/23 08:21 Dose: 100 mg Documented By: MALIKA Labs 05/02/23 05:27 05/02/23 05:27 Labs: Laboratory Results - last 24 hr 05/01/23 05/01/23 05/01/23 10:58 16:02 20:14 MCV MCH MCHC RDW Plt Count MPV Absolute Nucleated RBC Nucleated RBC % (auto) Anion Gap Estim Creat Clear Calc Estimated GFR POC Glucose 173 H 185 H 162 H Fasting Glucose Calcium 05/02/23 05/02/23 05/02/23 05:27 05:27 08:04 MCV 91.0 MCH 30.8 MCHC 33.9 RDW 12.5 Plt Count 131 L D MPV 9.6 Absolute Nucleated RBC 0.000 Nucleated RBC % (auto) 0.0 Anion Gap 14 Estim Creat Clear Calc 131.0 Estimated GFR > 60 POC Glucose 212 H Fasting Glucose 184 H Calcium 9.6 D Laboratory Results WBC 11.0 X10*3/uL (4.8-10.8) H 05/02/23 05:27 RBC 4.12 X10*6/uL (4.60-5.80) L 05/02/23 05:27 Hgb 12.7 g/dl (14.0-18.0) L 05/02/23 05:27 Hct 37.5 % (42.0-52.0) L 05/02/23 05:27 MCV 91.0 fL (80.0-98.0) 05/02/23 05:27 MCH 30.8 pg (27.0-33.0) 05/02/23 05:27 MCHC 33.9 g/dl (31.0-36.0) 05/02/23 05:27 RDW 12.5 % (11.0-16.0) 05/02/23 05:27 Plt Count 131 X10*3/uL (160-400) L D 05/02/23 05:27 MPV 9.6 fL (9.4-12.4) 05/02/23 05:27 Immature Gran % (Auto) Cancelled 05/01/23 05:24 Neut % (Auto) Cancelled 05/01/23 05:24 Lymph % (Auto) Cancelled 05/01/23 05:24 [place] % (Auto) Cancelled 05/01/23 05:24 Eos % (Auto) Cancelled 05/01/23 05:24 Baso % (Auto) Cancelled 05/01/23 05:24 Lymph # (Auto) Cancelled 05/01/23 05:24 [place] # (Auto) Cancelled 05/01/23 05:24 Eos # (Auto) Cancelled 05/01/23 05:24 Baso # (Auto) Cancelled 05/01/23 05:24 Abs Immat Gran (auto) Cancelled 05/01/23 05:24 Absolute Neuts (auto) Cancelled 05/01/23 05:24 Absolute Nucleated RBC 0.000 X10*3/uL (0.0-0.012) 05/02/23 05:27 Nucleated RBC % (auto) 0.0 /100WBC (0.0-0.2) 05/02/23 05:27 Neutrophils % (Manual) 71 % (45-73) 05/01/23 05:24 Band Neutrophils % 18 % (3-5) H 05/01/23 05:24 Lymphocytes % (Manual) 6 % (20-40) L 05/01/23 05:24 Monocytes % (Manual) 4 % (2-11) 05/01/23 05:24 Eosinophils % (Manual) 1 % (0-4) 05/01/23 05:24 Abs Neuts (Manual) 7.0 X10*3/uL (2.0-8.3) 05/01/23 05:24 Lymphocytes # (Manual) 0.5 X10*3/uL (1.2-4.9) L 05/01/23 05:24 Monocytes # (Manual) 0.3 X10*3/uL (0.1-1.2) 05/01/23 05:24 Eosinophils # (Manual) 0.1 X10*3/uL (0.0-0.4) 05/01/23 05:24 Smudge Cells PRESENT 04/30/23 05:34 Toxic Granulation PRESENT 05/01/23 05:24 Toxic Vacuolation PRESENT 04/30/23 05:34 Dohle Bodies PRESENT 05/01/23 05:24 Platelet Estimate DECREASED (NORMAL) 05/01/23 05:24 Plt Morphology Comment NORMAL 05/01/23 05:24 RBC Morphology NORMAL 05/01/23 05:24 VBG pH 7.50 (7.32-7.43) H 04/30/23 05:36 VBG pCO2 38 mmHg 04/30/23 05:36 VBG pO2 78 mmHg 04/30/23 05:36 VBG HCO3 30 mmol/L (22-26) H 04/30/23 05:36 VBG O2 Saturation 96.0 % 04/30/23 05:36 VBG Base Excess 6.9 mmol/L 04/30/23 05:36 Sodium 136 mmol/L (135-145) 05/02/23 05:27 Potassium 3.7 mmol/L (3.3-5.1) 05/02/23 05:27 Chloride 102 mmol/L (96-108) 05/02/23 05:27 Carbon Dioxide 24 mmol/L (22-29) 05/02/23 05:27 Anion Gap 14 (12-20) 05/02/23 05:27 BUN 14 mg/dL (9-16) 05/02/23 05:27 Creatinine 0.72 mg/dL (0.5-1.4) 05/02/23 05:27 Estim Creat Clear Calc 131.0 05/02/23 05:27 Estimated GFR > 60 05/02/23 05:27 POC Glucose 212 mg/dL (60-115) H 05/02/23 08:04 Random Glucose 162 mg/dL (60-115) H 05/01/23 05:24 Fasting Glucose 184 mg/dL (60-99) H 05/02/23 05:27 Estimat Average Glucose 128 mg/dL 04/29/23 05:04 Hemoglobin A1c % 6.1 % 04/29/23 05:04 Calcium 9.6 mg/dL (8.4-10.2) D 05/02/23 05:27 Phosphorus 1.5 mg/dL (2.7-4.5) L 05/01/23 05:24 Magnesium 2.1 mg/dL (1.6-2.6) 05/01/23 05:24 Total Bilirubin 1.0 mg/dL (0.0-1.0) 05/01/23 05:24 Direct Bilirubin < 0.2 mg/dL (0.0-0.5) 04/28/23 12:00 AST 15 U/L (5-37) 05/01/23 05:24 ALT 12 U/L (0-40) 05/01/23 05:24 Alkaline Phosphatase 35 U/L (39-117) L 05/01/23 05:24 Total Protein 6.4 g/dL (6.5-8.0) L 05/01/23 05:24 Albumin 3.9 g/dL (3.5-5.0) 05/01/23 05:24 Triglycerides 903 mg/dL 04/30/23 05:34 Lipase 138 U/L (8-78) H 05/01/23 05:24 Urine Color Dark Yellow 04/28/23 10:07 Urine Appearance Cloudy 04/28/23 10:07 Urine pH 5.5 (5.0-9.0) 04/28/23 10:07 Ur Specific [place] >= 1.030 (1.005-1.025) H 04/28/23 10:07 Urine Protein 300 (3+) mg/dL (Neg-Trace) H 04/28/23 10:07 Urine Glucose (UA) 100 mg/dL (Negative) H 04/28/23 10:07 Urine Ketones Trace mg/dL (Negative) 04/28/23 10:07 Urine Blood Negative (Negative) 04/28/23 10:07 Urine Nitrite Negative (Negative) 04/28/23 10:07 Ur Leukocyte Esterase Negative (Negative) 04/28/23 10:07 Urine RBC 3-5 /HPF (0-2) H 04/28/23 10:07 Urine WBC 0-5 /HPF (0-5) 04/28/23 10:07 Ur Squamous Epith Cells 3-5 /HPF (0-2) 04/28/23 10:07 Urine Bacteria None Seen (None Seen) 04/28/23 10:07 Hyaline Casts >20 /LPF (0-2) 04/28/23 10:07 Granular Casts Present 04/28/23 10:07 Impressions Abdomen/Pelvis CT 04/30/23 12:00 IMPRESSION: Worsening pancreatitis with increasing peripancreatic fluid and generalized ascites. Stable small amount of nonocclusive thrombus in the portal splenic confluence. The splenic vein is otherwise patent. Enlarged fatty liver. Increasing atelectasis/consolidation and pleural effusions at the lung bases. Fleischner guidelines were followed. Chest X-Ray 05/01/23 09:34 IMPRESSION: Low lung volumes. Bilateral atelectasis or small infiltrates and small bilateral pleural effusions. 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 Quality Stroke Does the patient have a stroke diagnosis?: No VTE Prior VTE?: No VTE Risk Level:: Medical - moderate - high VTE Device Contraindication: N/A - Device Ordered VTE Drug Contraindication: N/A - Med Ordered
[2023-05-02] MEDS: PHENobarbitaL sodium 130 MG/ML VIAL IM Q3Hx2 107 MG IM ×2 (11:30→14:52)
[2023-05-02 11:40] LABS: Glucose, Whole Blood 180 mg/dL (60-115)
[2023-05-02] MEDS: HYDROmorphone HCl 1 MG/ML SYRINGE IVPUSH (12:21)
[2023-05-02 15:39] LABS: Glucose, Whole Blood 177 mg/dL (60-115)
[2023-05-02] MEDS: Atorvastatin Calcium 80 MG TABLET PO (20:17)
[2023-05-02] MEDS: Enoxaparin Sodium 40 MG/0.4 ML SYRINGE SUBCUT (20:17)
[2023-05-02 21:00] LABS: Glucose, Whole Blood 216 mg/dL (60-115)
[2023-05-03] VITALS (7 sets, daily range): BP systolic 128–159; BP diastolic 71–96; PULSE 109–121; RESP 18–22; TEMP 36.2–37.2; O2SAT 92–98
[2023-05-03] MEDS: HYDROmorphone HCl 1 MG/ML SYRINGE IVPUSH (01:24)
[2023-05-03] MEDS: Piperacillin Sodium/Tazobactam 4.5 GM in 0.9 % Sodium Chloride 100 ML IV ×3 (05:12→17:03)
[2023-05-03 07:04] LABS: Hematocrit 35.9 % (42.0-52.0); Hemoglobin 12.2 g/dl (14.0-18.0); Mean Corpuscular Hemoglobin 31.4 pg (27.0-33.0); Mean Corpuscular Volume 92.5 fL (80.0-98.0); Mean Platelet Volume 9.7 fL (9.4-12.4); Platelet Count 151 X10*3/uL (160-400); Red Blood Count 3.88 X10*6/uL (4.60-5.80); Red Cell Distribution Width 12.9 % (11.0-16.0); White Blood Count 11.3 X10*3/uL (4.8-10.8)
[2023-05-03 07:19] LABS: Alanine Aminotransferase 17 U/L (0-40); Albumin Level 3.7 g/dL (3.5-5.0); Alkaline Phosphatase 91 U/L (39-117); Anion Gap 13 (12-20); Aspartate Amino Transferase 23 U/L (5-37); Bilirubin Direct 0.4 mg/dL (0.0-0.5); Bilirubin Total 0.9 mg/dL (0.0-1.0); Blood Urea Nitrogen 12 mg/dL (9-16); Calcium 9.7 mg/dL (8.4-10.2); Carbon Dioxide 27 mmol/L (22-29); Chloride 102 mmol/L (96-108); Creatinine Clr Calc Pharmacy 119.4; Estimated Glomerular Filt Rate > 60; Glucose Fasting 166 mg/dL (60-99); Magnesium 2.2 mg/dL (1.6-2.6); Sodium 138 mmol/L (135-145); Total Protein 6.7 g/dL (6.5-8.0)
[2023-05-03 07:45] LABS: Glucose, Whole Blood 172 mg/dL (60-115)
[2023-05-03] MEDS: Insulin Lispro 100 UNIT/ML 3 ML VIAL SUBCUT ×4 (07:59→20:13)
[2023-05-03] MEDS: PHENobarbitaL 15 MG TABLET 45 MG PO ×2 (07:59→20:01)
[2023-05-03] MEDS: amLODIPine Besylate 10 MG TABLET PO (07:59)
[2023-05-03] MEDS: Thiamine HCL 100 MG TABLET PO (07:59)
[2023-05-03] MEDS: lisinopriL 20 MG TABLET PO (07:59)
[2023-05-03] MEDS: gemfibroziL 600 MG TABLET PO ×2 (07:59→17:03)
[2023-05-03] MEDS: Folic Acid 1 MG TABLET PO (07:59)
[2023-05-03] MEDS: FLUoxetine HCl 20 MG CAPSULE PO (07:59)
--- NOTE | 2023-05-03 08:29 | P.PNIM_ITS ---
Subjective Subjective Date of Service: 05/03/23 Interval History: tired, abd pain, minimal appetite Physical Exam Vital Signs: Vital Signs: Last Vital Signs Temp 97.4 F 05/03/23 07:37 Pulse 118 H 05/03/23 07:37 Resp 20 05/03/23 07:37 BP 136/91 H 05/03/23 07:37 Pulse Ox 92 05/03/23 07:37 O2 Del Method Room Air 05/03/23 07:37 O2 Flow Rate 1 05/02/23 11:11 BMI result Body Mass Index 32.0 less agitated and confused, oriented to person and place, not time, poor insight, abd tender Objective Data Active Medications Albuterol/Ipratropium (Albuterol/Iprat 2.5/0.5mg 3 Ml Ampul.Neb) 3 ml INHALE Q4H PRN PRN Reason: Wheezing Last Admin: 05/02/23 05:24 Dose: 3 ml Documented By: EARNEST Amlodipine Besylate (Amlodipine Besylate 10 Mg Tablet) 10 mg PO DAILY [facility]; Protocol Last Admin: 05/03/23 07:59 Dose: 10 mg Documented By: ARLET Atorvastatin Calcium (Atorvastatin Calcium 80 Mg Tablet) 80 mg PO BEDTIME [facility] Last Admin: 05/02/23 20:17 Dose: 80 mg Documented By: ARIES Dextrose (Dextrose 50 % 25 Gm/50 Ml Syringe) 25 gm IVPUSH Q15M PRN PRN Reason: Nursing Actions in Insulin Infusion Protocol Enoxaparin Sodium (Enoxaparin Sodium 40 Mg/0.4 Ml Syringe) 40 mg SUBCUT Q24H [facility] Last Admin: 05/02/23 20:17 Dose: 40 mg Documented By: ARIES Fluoxetine HCl (Fluoxetine Hcl 20 Mg Capsule) 20 mg PO DAILY [facility] Last Admin: 05/03/23 07:59 Dose: 20 mg Documented By: ARLET Folic Acid (Folic Acid 1 Mg Tablet) 1 mg PO DAILY [facility] Last Admin: 05/03/23 07:59 Dose: 1 mg Documented By: ARLET Gemfibrozil (Gemfibrozil 600 Mg Tablet) 600 mg PO BIDAC [facility] Last Admin: 05/03/23 07:59 Dose: 600 mg Documented By: ARLET Hydromorphone HCl (Hydromorphone Hcl 1 Mg/Ml Syringe) 1 mg IVPUSH Q2H PRN; Protocol PRN Reason: Pain, Severe (Pain Scale 7-10) Last Admin: 05/03/23 01:24 Dose: 1 mg Documented By: MARIA FERNANDA Piperacillin Sod/Tazobactam (Sod 4.5 gm/ Sodium Chloride) 100 mls @ 200 mls/hr IV Q6H [facility] Last Infusion: 05/03/23 05:44 Dose: 0 mls/hr Documented By: MARIA FERNANDA Insulin Human Lispro (Insulin Lispro 100 Unit/Ml 3 Ml Vial) 0 unit SUBCUT QIDACHS [facility]; Protocol Last Admin: 05/03/23 07:59 Dose: 2 unit Documented By: ARLET Lisinopril (Lisinopril 20 Mg Tablet) 20 mg PO DAILY [facility]; Protocol Last Admin: 05/03/23 07:59 Dose: 20 mg Documented By: ARLET Lorazepam (Lorazepam 2 Mg/Ml Vial) 1 mg IVPUSH ONCE PRN PRN Reason: Sleep Last Admin: 05/01/23 09:42 Dose: 0.5 mg Documented By: MALIKA Comments: Scanned under wrong Ativan order. patient was given 0.5mg PRN dose on 05/01/2023 at 0942. waste of excess 1.5 mg witnessed by another RN in [facility]. Lorazepam (Lorazepam 2 Mg/Ml Vial) 0.5 mg IVPUSH Q4H PRN PRN Reason: Anxiety Last Admin: 05/02/23 23:46 Dose: 0.5 mg Documented By: MARIA FERNANDA Melatonin (Melatonin 3 Mg Tablet) 6 mg PO BEDTIME PRN PRN Reason: insomnia Last Admin: 05/01/23 00:42 Dose: 6 mg Documented By: PAT Multi-Ingred Medicated Throat [place] (Throat [place], Medicated 177 Ml Bottle) 1 spray MUCOUS MEM Q2H PRN PRN Reason: Sore Throat Last Admin: 04/29/23 22:28 Dose: 1 spray Documented By: GEOVANNY Nicotine Polacrilex (Nicotine Polacrilex 2 Mg Gum) 2 mg BUCCAL Q2H PRN PRN Reason: Nicotine Cravings Last Admin: 04/30/23 02:36 Dose: 2 mg Documented By: PATRICIA Ondansetron HCl (Ondansetron Hcl 4 Mg/2 Ml Vial) 4 mg IVPUSH Q6H PRN PRN Reason: Nausea and Vomiting Last Admin: 04/29/23 15:04 Dose: 4 mg Documented By: STAS Pharmacy Consult (Consult Rx Etoh Phenob Im/Po) 1 each MISCELLANE ONCE PRN; Protocol PRN Reason: Consult order Phenobarbital (Phenobarbital 15 Mg Tablet) 45 mg PO BID [facility] Stop: 05/04/23 21:01 Last Admin: 05/03/23 07:59 Dose: 45 mg Documented By: ARLET Phenobarbital (Phenobarbital 15 Mg Tablet) 15 mg PO BID [facility] Stop: 05/06/23 21:01 Phenobarbital (Phenobarbital 15 Mg Tablet) 15 mg PO DAILY [facility] Stop: 05/08/23 09:01 Thiamine HCl (Thiamine Hcl 100 Mg Tablet) 100 mg PO DAILY [facility] Last Admin: 05/03/23 07:59 Dose: 100 mg Documented By: ARLET Labs 05/03/23 06:24 05/03/23 06:24 Labs: Laboratory Results - last 24 hr 05/02/23 05/02/23 05/02/23 11:10 15:29 20:50 MCV MCH MCHC RDW Plt Count MPV Absolute Nucleated RBC Nucleated RBC % (auto) Anion Gap Estim Creat Clear Calc Estimated GFR POC Glucose 180 H 177 H 216 H Fasting Glucose Calcium Magnesium Total Bilirubin Direct Bilirubin AST ALT Alkaline Phosphatase Total Protein Albumin 05/03/23 05/03/23 05/03/23 06:24 06:24 07:35 MCV 92.5 MCH 31.4 MCHC 34.0 RDW 12.9 Plt Count 151 L MPV 9.7 Absolute Nucleated RBC 0.000 Nucleated RBC % (auto) 0.0 Anion Gap 13 Estim Creat Clear Calc 119.4 Estimated GFR > 60 POC Glucose 172 H Fasting Glucose 166 H Calcium 9.7 Magnesium 2.2 Total Bilirubin 0.9 Direct Bilirubin 0.4 AST 23 ALT 17 Alkaline Phosphatase 91 Total Protein 6.7 Albumin 3.7 Assessment and Plan (1) Hypertriglyceridemia: Status: Acute Plan 42M PMH htn, hypertriglyceridemia, TBI, obesity, presented with abd pain due to pacreatitis from hyperTG, admitted to ICU, improved with insulin, now downgraded to medical floor, and complicated by acute hypoxia acute pancreatitis due to hypertriglyceridemia clears pain control acute metabolic encephaloapthy ?etoh dependence with withdrawal phenobarb, ciwa acute hypoxic respiratory failure due to fluid overload resolved obesity weight loss htn lisinopril, amlodipine dvt prophylaxis - lovenox full code reason for continued hospitalization:in pain, ams, awaiting tolerance of po Time Spent With Patient Time: Total time managing care of this patient today ____ minutes. Quality Stroke Does the patient have a stroke diagnosis?: No VTE Prior VTE?: No VTE Risk Level:: Medical - moderate - high VTE Device Contraindication: N/A - Device Ordered VTE Drug Contraindication: N/A - Med Ordered
--- NOTE | 2023-05-03 10:17 | MHC.CM.PN ---
Per ROUNDS discussion, Patient is not yet medically cleared for dc (IV Dilaudid today r/t Abdominal Pain, IV Ativan yesterday, IV Zosyn, may benefit from a PT eval to assist with disposition). CM will follow.
[2023-05-03 11:13] LABS: Glucose, Whole Blood 156 mg/dL (60-115)
[2023-05-03] MEDS: Albuterol/Iprat 2.5/0.5MG 3 ML AMPUL.NEB INHALE (14:15)
[2023-05-03 16:56] LABS: Glucose, Whole Blood 156 mg/dL (60-115)
[2023-05-03] MEDS: Lactated Ringers 1,000 ML 100 ML IVCONT (19:04)
[2023-05-03] MEDS: Atorvastatin Calcium 80 MG TABLET PO (20:00)
[2023-05-03] MEDS: Melatonin 3 MG TABLET 6 MG PO (20:00)
[2023-05-03] MEDS: Enoxaparin Sodium 40 MG/0.4 ML SYRINGE SUBCUT (20:01)
[2023-05-03 20:15] LABS: Glucose, Whole Blood 160 mg/dL (60-115)
[2023-05-04] VITALS (7 sets, daily range): BP systolic 128–152; BP diastolic 78–92; PULSE 103–118; RESP 20; TEMP 36.4–37.6; O2SAT 93–96; BMI 30.3
[2023-05-04] MEDS: Piperacillin Sodium/Tazobactam 4.5 GM in 0.9 % Sodium Chloride 100 ML IV ×2 (00:16→04:57)
[2023-05-04] MEDS: Lactated Ringers 1,000 ML 100 ML IVCONT (04:57)
[2023-05-04 07:34] LABS: Glucose, Whole Blood 172 mg/dL (60-115)
[2023-05-04] MEDS: Insulin Lispro 100 UNIT/ML 3 ML VIAL SUBCUT ×4 (08:01→20:21)
[2023-05-04] MEDS: FLUoxetine HCl 20 MG CAPSULE PO (08:02)
[2023-05-04] MEDS: PHENobarbitaL 15 MG TABLET 45 MG PO ×2 (08:02→20:20)
[2023-05-04] MEDS: lisinopriL 20 MG TABLET PO (08:02)
[2023-05-04] MEDS: Folic Acid 1 MG TABLET PO (08:02)
[2023-05-04] MEDS: gemfibroziL 600 MG TABLET PO ×2 (08:02→16:57)
[2023-05-04] MEDS: Thiamine HCL 100 MG TABLET PO (08:02)
[2023-05-04] MEDS: amLODIPine Besylate 10 MG TABLET PO (08:02)
--- NOTE | 2023-05-04 08:49 | P.PNIM_ITS ---
Subjective Subjective Date of Service: 05/04/23 Interval History: overall much improved, still with abd bloating, not interested in advancing from clears yet Physical Exam Vital Signs: Vital Signs: Last Vital Signs Temp 97.8 F 05/04/23 07:43 Pulse 104 H 05/04/23 07:43 Resp 20 05/04/23 03:16 BP 143/78 H 05/04/23 07:43 Pulse Ox 94 05/04/23 07:43 O2 Del Method Room Air 05/04/23 07:43 O2 Flow Rate 2 05/03/23 19:55 BMI result Body Mass Index 30.3 much calmer, alert oriented times 3, abd distended, mildly tender Objective Data Active Medications Albuterol/Ipratropium (Albuterol/Iprat 2.5/0.5mg 3 Ml Ampul.Neb) 3 ml INHALE Q4H PRN PRN Reason: Wheezing Last Admin: 05/03/23 14:15 Dose: 3 ml Documented By: CHRISTOPHER Amlodipine Besylate (Amlodipine Besylate 10 Mg Tablet) 10 mg PO DAILY [facility]; Protocol Last Admin: 05/04/23 08:02 Dose: 10 mg Documented By: LU Atorvastatin Calcium (Atorvastatin Calcium 80 Mg Tablet) 80 mg PO BEDTIME [facility] Last Admin: 05/03/23 20:00 Dose: 80 mg Documented By: SEGUNDO Dextrose (Dextrose 50 % 25 Gm/50 Ml Syringe) 25 gm IVPUSH Q15M PRN PRN Reason: Nursing Actions in Insulin Infusion Protocol Enoxaparin Sodium (Enoxaparin Sodium 40 Mg/0.4 Ml Syringe) 40 mg SUBCUT Q24H [facility] Last Admin: 05/03/23 20:01 Dose: 40 mg Documented By: SEGUNDO Fluoxetine HCl (Fluoxetine Hcl 20 Mg Capsule) 20 mg PO DAILY [facility] Last Admin: 05/04/23 08:02 Dose: 20 mg Documented By: LU Folic Acid (Folic Acid 1 Mg Tablet) 1 mg PO DAILY [facility] Last Admin: 05/04/23 08:02 Dose: 1 mg Documented By: LU Gemfibrozil (Gemfibrozil 600 Mg Tablet) 600 mg PO BIDAC [facility] Last Admin: 05/04/23 08:02 Dose: 600 mg Documented By: LU Piperacillin Sod/Tazobactam (Sod 4.5 gm/ Sodium Chloride) 100 mls @ 200 mls/hr IV Q6H [facility] Last Infusion: 05/04/23 05:44 Dose: 0 mls/hr Documented By: MALIKA Insulin Human Lispro (Insulin Lispro 100 Unit/Ml 3 Ml Vial) 0 unit SUBCUT QIDACHS [facility]; Protocol Last Admin: 05/04/23 08:01 Dose: 2 unit Documented By: LU Lisinopril (Lisinopril 20 Mg Tablet) 20 mg PO DAILY [facility]; Protocol Last Admin: 05/04/23 08:02 Dose: 20 mg Documented By: LU Lorazepam (Lorazepam 2 Mg/Ml Vial) 1 mg IVPUSH ONCE PRN PRN Reason: Sleep Last Admin: 05/01/23 09:42 Dose: 0.5 mg Documented By: MALIKA Comments: Scanned under wrong Ativan order. patient was given 0.5mg PRN dose on 05/01/2023 at 0942. waste of excess 1.5 mg witnessed by another RN in xis. Lorazepam (Lorazepam 2 Mg/Ml Vial) 0.5 mg IVPUSH Q4H PRN PRN Reason: Anxiety Last Admin: 05/02/23 23:46 Dose: 0.5 mg Documented By: ANTOIC Melatonin (Melatonin 3 Mg Tablet) 6 mg PO BEDTIME PRN PRN Reason: insomnia Last Admin: 05/03/23 20:00 Dose: 6 mg Documented By: TUMASY Multi-Ingred Medicated Throat [place] (Throat [place], Medicated 177 Ml Bottle) 1 spray MUCOUS MEM Q2H PRN PRN Reason: Sore Throat Last Admin: 04/29/23 22:28 Dose: 1 spray Documented By: JENNIFERUMOC Nicotine Polacrilex (Nicotine Polacrilex 2 Mg Gum) 2 mg BUCCAL Q2H PRN PRN Reason: Nicotine Cravings Last Admin: 04/30/23 02:36 Dose: 2 mg Documented By: PATRICIA Ondansetron HCl (Ondansetron Hcl 4 Mg/2 Ml Vial) 4 mg IVPUSH Q6H PRN PRN Reason: Nausea and Vomiting Last Admin: 04/29/23 15:04 Dose: 4 mg Documented By: HO.[email or web address] Pharmacy Consult (Consult Rx Etoh Phenob Im/Po) 1 each MISCELLANE ONCE PRN; Protocol PRN Reason: Consult order Phenobarbital (Phenobarbital 15 Mg Tablet) 45 mg PO BID [facility] Stop: 05/04/23 21:01 Last Admin: 05/04/23 08:02 Dose: 45 mg Documented By: LU Phenobarbital (Phenobarbital 15 Mg Tablet) 15 mg PO BID [facility] Stop: 05/06/23 21:01 Phenobarbital (Phenobarbital 15 Mg Tablet) 15 mg PO DAILY [facility] Stop: 05/08/23 09:01 Thiamine HCl (Thiamine Hcl 100 Mg Tablet) 100 mg PO DAILY [facility] Last Admin: 05/04/23 08:02 Dose: 100 mg Documented By: LU Labs 05/03/23 06:24 05/03/23 06:24 Labs: Laboratory Results - last 24 hr 05/03/23 05/03/23 05/03/23 11:09 16:52 20:09 POC Glucose 156 H 156 H 160 H 05/04/23 07:31 POC Glucose 172 H Assessment and Plan (1) Hypertriglyceridemia: Status: Acute Plan 42M PMH htn, hypertriglyceridemia, TBI, obesity, presented with abd pain due to pacreatitis from hyperTG, admitted to ICU, improved with insulin, now downgraded to medical floor, and complicated by acute hypoxia acute pancreatitis due to hypertriglyceridemia/ETOH continue statin and fibrate no ETOH pain is well controlled, but still not wanting to advance from clears off ivf due to fluid overload acute metabolic encephaloapthy etoh dependence with withdrawal + ICU delerium phenobarb, ciwa much improved acute hypoxic respiratory failure due to fluid overload resolved obesity weight loss htn lisinopril, amlodipine dvt prophylaxis - lovenox full code reason for continued hospitalization:awaiting tolerance of solids Time Spent With Patient Time: Total time managing care of this patient today ____ minutes. Quality Stroke Does the patient have a stroke diagnosis?: No VTE Prior VTE?: No VTE Risk Level:: Medical - moderate - high VTE Device Contraindication: N/A - Device Ordered VTE Drug Contraindication: N/A - Med Ordered
[2023-05-04 11:34] LABS: Glucose, Whole Blood 172 mg/dL (60-115)
[2023-05-04 16:20] LABS: Glucose, Whole Blood 175 mg/dL (60-115)
[2023-05-04 20:05] LABS: Glucose, Whole Blood 216 mg/dL (60-115)
[2023-05-04] MEDS: Atorvastatin Calcium 80 MG TABLET PO (20:20)
[2023-05-04] MEDS: Enoxaparin Sodium 40 MG/0.4 ML SYRINGE SUBCUT (20:22)
[2023-05-05 03:26] VITALS: BP 142/87; PULSE 105; RESP 20; TEMP 36.2; O2SAT 96
[2023-05-05 06:00] VITALS: BMI 29.0
[2023-05-05 07:07] VITALS: BP 145/89; PULSE 97; RESP 18; TEMP 36.6; O2SAT 98
[2023-05-05 07:19] LABS: Hemoglobin 13.3 g/dl (14.0-18.0); Mean Corpuscular HGB Conc 33.3 g/dl (31.0-36.0); Mean Corpuscular Hemoglobin 30.9 pg (27.0-33.0); Mean Corpuscular Volume 92.8 fL (80.0-98.0); Mean Platelet Volume 10.2 fL (9.4-12.4); Platelet Count 238 X10*3/uL (160-400); Red Blood Count 4.31 X10*6/uL (4.60-5.80); Red Cell Distribution Width 12.2 % (11.0-16.0); White Blood Count 17.2 X10*3/uL (4.8-10.8)
[2023-05-05] MEDS: Thiamine HCL 100 MG TABLET PO (07:27)
[2023-05-05] MEDS: gemfibroziL 600 MG TABLET PO ×2 (07:27→17:00)
[2023-05-05] MEDS: Folic Acid 1 MG TABLET PO (07:27)
[2023-05-05] MEDS: amLODIPine Besylate 10 MG TABLET PO (07:27)
[2023-05-05] MEDS: PHENobarbitaL 15 MG TABLET PO ×2 (07:27→22:07)
[2023-05-05] MEDS: FLUoxetine HCl 20 MG CAPSULE PO (07:27)
[2023-05-05] MEDS: lisinopriL 20 MG TABLET PO (07:28)
[2023-05-05 07:36] LABS: Glucose, Whole Blood 203 mg/dL (60-115)
[2023-05-05 07:42] LABS: Alanine Aminotransferase 21 U/L (0-40); Albumin Level 3.7 g/dL (3.5-5.0); Alkaline Phosphatase 105 U/L (39-117); Anion Gap 12 (12-20); Aspartate Amino Transferase 18 U/L (5-37); Bilirubin Direct 0.2 mg/dL (0.0-0.5); Bilirubin Total 0.4 mg/dL (0.0-1.0); Blood Urea Nitrogen 12 mg/dL (9-16); Carbon Dioxide 25 mmol/L (22-29); Chloride 102 mmol/L (96-108); Creatinine Clr Calc Pharmacy 116.9; Estimated Glomerular Filt Rate > 60; Glucose Fasting 210 mg/dL (60-99); Magnesium 2.2 mg/dL (1.6-2.6); Potassium 4.1 mmol/L (3.3-5.1); Sodium 135 mmol/L (135-145); Total Protein 7.2 g/dL (6.5-8.0)
[2023-05-05] MEDS: Insulin Lispro 100 UNIT/ML 3 ML VIAL SUBCUT ×4 (08:07→22:08)
[2023-05-05 11:06] VITALS: BP 136/87; PULSE 104; RESP 18; TEMP 36.1; O2SAT 98
[2023-05-05 11:30] LABS: Glucose, Whole Blood 237 mg/dL (60-115)
[2023-05-05 13:08] LABS: Hematocrit 38.4 % (42.0-52.0); Hemoglobin 12.8 g/dl (14.0-18.0); Mean Corpuscular HGB Conc 33.3 g/dl (31.0-36.0); Mean Corpuscular Hemoglobin 30.6 pg (27.0-33.0); Mean Corpuscular Volume 91.9 fL (80.0-98.0); Mean Platelet Volume 9.9 fL (9.4-12.4); Platelet Count 245 X10*3/uL (160-400); Red Blood Count 4.18 X10*6/uL (4.60-5.80); Red Cell Distribution Width 12.3 % (11.0-16.0); White Blood Count 19.6 X10*3/uL (4.8-10.8)
[2023-05-05 15:19] VITALS: BP 157/92; PULSE 84; RESP 18; TEMP 36.7; O2SAT 95
--- NOTE | 2023-05-05 15:57 | P.PNIM_ITS ---
Subjective Subjective Date of Service: 05/05/23 Interval History: feeling better tolerated diet denies abdominal pain, no nausea, no vomiting, no overnight fevers, wants to go home,noted to have elevated WBC count of 17,000. Review of Systems all other system reviewed and negative. Physical Exam Vital Signs: Vital Signs: Last Vital Signs Temp 98.0 F 05/05/23 15:19 Pulse 84 05/05/23 15:19 Resp 18 05/05/23 15:19 BP 157/92 H 05/05/23 15:19 Pulse Ox 95 05/05/23 15:19 O2 Del Method Room Air 05/05/23 15:19 O2 Flow Rate 2 05/03/23 19:55 BMI result Body Mass Index 29.0 Const: Other: General resting comfortably in no acute distress. Neck supple no JVD. CVS regular rate rhythm, Respiratory lungs clear to auscultation, no respiratory distress, no wheeze, no rhonchi. Gastrointestinal abdomen soft, obese, nontender, bowel sounds audible, no guarding , no rigidity. Extremities no edema. Neuro nonfocal Skin no rash psych appropriate affect Objective Data Active Medications Albuterol/Ipratropium (Albuterol/Iprat 2.5/0.5mg 3 Ml Ampul.Neb) 3 ml INHALE Q4H PRN PRN Reason: Wheezing Last Admin: 05/03/23 14:15 Dose: 3 ml Documented By: CHRISTOPHER Amlodipine Besylate (Amlodipine Besylate 10 Mg Tablet) 10 mg PO DAILY [facility]; Protocol Last Admin: 05/05/23 07:27 Dose: 10 mg Documented By: JUDI Atorvastatin Calcium (Atorvastatin Calcium 80 Mg Tablet) 80 mg PO BEDTIME [facility] Last Admin: 05/04/23 20:20 Dose: 80 mg Documented By: NAYELI Dextrose (Dextrose 50 % 25 Gm/50 Ml Syringe) 25 gm IVPUSH Q15M PRN PRN Reason: Nursing Actions in Insulin Infusion Protocol Enoxaparin Sodium (Enoxaparin Sodium 40 Mg/0.4 Ml Syringe) 40 mg SUBCUT Q24H [facility] Last Admin: 05/04/23 20:22 Dose: 40 mg Documented By: NAYELI Fluoxetine HCl (Fluoxetine Hcl 20 Mg Capsule) 20 mg PO DAILY [facility] Last Admin: 05/05/23 07:27 Dose: 20 mg Documented By: JUDI Folic Acid (Folic Acid 1 Mg Tablet) 1 mg PO DAILY [facility] Last Admin: 05/05/23 07:27 Dose: 1 mg Documented By: JUDI Gemfibrozil (Gemfibrozil 600 Mg Tablet) 600 mg PO BIDAC [facility] Last Admin: 05/05/23 07:27 Dose: 600 mg Documented By: JUDI Insulin Human Lispro (Insulin Lispro 100 Unit/Ml 3 Ml Vial) 0 unit SUBCUT QIDACHS [facility]; Protocol Last Admin: 05/05/23 12:05 Dose: 4 unit Documented By: JUDI Lisinopril (Lisinopril 20 Mg Tablet) 20 mg PO DAILY [facility]; Protocol Last Admin: 05/05/23 07:28 Dose: 20 mg Documented By: JUDI Lorazepam (Lorazepam 2 Mg/Ml Vial) 0.5 mg IVPUSH Q4H PRN PRN Reason: Anxiety Last Admin: 05/02/23 23:46 Dose: 0.5 mg Documented By: ANTOIC Melatonin (Melatonin 3 Mg Tablet) 6 mg PO BEDTIME PRN PRN Reason: insomnia Last Admin: 05/03/23 20:00 Dose: 6 mg Documented By: SEGUNDO Multi-Ingred Medicated Throat [place] (Throat [place], Medicated 177 Ml Bottle) 1 spray MUCOUS MEM Q2H PRN PRN Reason: Sore Throat Last Admin: 04/29/23 22:28 Dose: 1 spray Documented By: GEOVANNY Nicotine Polacrilex (Nicotine Polacrilex 2 Mg Gum) 2 mg BUCCAL Q2H PRN PRN Reason: Nicotine Cravings Last Admin: 04/30/23 02:36 Dose: 2 mg Documented By: PATRICIA Ondansetron HCl (Ondansetron Hcl 4 Mg/2 Ml Vial) 4 mg IVPUSH Q6H PRN PRN Reason: Nausea and Vomiting Last Admin: 04/29/23 15:04 Dose: 4 mg Documented By: STAS Pharmacy Consult (Consult Rx Etoh Phenob Im/Po) 1 each MISCELLANE ONCE PRN; Protocol PRN Reason: Consult order Phenobarbital (Phenobarbital 15 Mg Tablet) 15 mg PO BID [facility] Stop: 05/06/23 21:01 Last Admin: 05/05/23 07:27 Dose: 15 mg Documented By: JUDI Phenobarbital (Phenobarbital 15 Mg Tablet) 15 mg PO DAILY [facility] Stop: 05/08/23 09:01 Thiamine HCl (Thiamine Hcl 100 Mg Tablet) 100 mg PO DAILY [facility] Last Admin: 05/05/23 07:27 Dose: 100 mg Documented By: JUDI Labs 05/05/23 12:51 05/05/23 06:45 Labs: Laboratory Results - last 24 hr 05/04/23 05/04/23 05/05/23 16:16 19:57 06:45 MCV 92.8 MCH 30.9 MCHC 33.3 RDW 12.2 Plt Count 238 D MPV 10.2 Absolute Nucleated RBC 0.000 Nucleated RBC % (auto) 0.0 Anion Gap Estim Creat Clear Calc Estimated GFR POC Glucose 175 H 216 H Fasting Glucose Calcium Magnesium Total Bilirubin Direct Bilirubin AST ALT Alkaline Phosphatase Total Protein Albumin 05/05/23 05/05/23 05/05/23 06:45 07:13 11:08 MCV MCH MCHC RDW Plt Count MPV Absolute Nucleated RBC Nucleated RBC % (auto) Anion Gap 12 Estim Creat Clear Calc 116.9 Estimated GFR > 60 POC Glucose 203 H 237 H Fasting Glucose 210 H Calcium 10.0 Magnesium 2.2 Total Bilirubin 0.4 Direct Bilirubin 0.2 AST 18 ALT 21 Alkaline Phosphatase 105 Total Protein 7.2 Albumin 3.7 05/05/23 12:51 MCV 91.9 MCH 30.6 MCHC 33.3 RDW 12.3 Plt Count 245 MPV 9.9 Absolute Nucleated RBC 0.000 Nucleated RBC % (auto) 0.0 Anion Gap Estim Creat Clear Calc Estimated GFR POC Glucose Fasting Glucose Calcium Magnesium Total Bilirubin Direct Bilirubin AST ALT Alkaline Phosphatase Total Protein Albumin Assessment and Plan (1) Hypertriglyceridemia: Status: Acute Plan 42M PMH htn, hypertriglyceridemia, TBI, obesity, presented with abd pain due to pacreatitis from hyperTG, admitted to ICU, improved with insulin, now downgraded to medical floor, and complicated by acute hypoxia acute pancreatitis due to hypertriglyceridemia/ETOH abdominal pain resolved, tolerating diet, lipase improved to 138 from 1353, triglyceride improved to 903 from 5190 noted to have rise in WBC count repeat this morning is > 19,000 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 and acute metabolic encephaloapthy resolved, was likely due to etoh dependence with withdrawal + ICU delerium continue phenobarb acute hypoxic respiratory failure due to fluid overload resolved obesity weight loss htn stable continue lisinopril, amlodipine dvt prophylaxis - lovenox full code reason for continued hospitalization: acute pancreatitis 1worsening leukocytosis Time Spent With Patient Time: Total time managing care of this patient today ____ minutes. Quality Stroke Does the patient have a stroke diagnosis?: No VTE Prior VTE?: No VTE Risk Level:: Medical - moderate - high VTE Device Contraindication: N/A - Device Ordered VTE Drug Contraindication: N/A - Med Ordered
[2023-05-05 15:59] LABS: Glucose, Whole Blood 221 mg/dL (60-115)
--- NOTE | 2023-05-05 16:11 | MHC.CM.PN ---
Per ROUNDS discussion, Patient was possibly going to be dc today but no dc order as of yet. Home is the goal and CM will continue to follow.
[2023-05-05] MEDS: iohexoL 350 MG/ML 75 ML INFUS..BTL 85 ML IV (16:37)
[2023-05-05 19:08] VITALS: BP 154/88; PULSE 100; RESP 19; TEMP 36.8; O2SAT 96
[2023-05-05 20:03] LABS: Glucose, Whole Blood 218 mg/dL (60-115)
[2023-05-05] MEDS: Atorvastatin Calcium 80 MG TABLET PO (22:07)
[2023-05-05] MEDS: Enoxaparin Sodium 40 MG/0.4 ML SYRINGE SUBCUT (22:08)
[2023-05-05 23:44] VITALS: BP 137/88; PULSE 104; RESP 20; TEMP 36.8; O2SAT 96
[2023-05-06 03:26] VITALS: BP 133/78; PULSE 99; RESP 20; TEMP 37.1; O2SAT 98
[2023-05-06 05:35] VITALS: BMI 28.5
[2023-05-06 07:26] LABS: Glucose, Whole Blood 218 mg/dL (60-115)
[2023-05-06 07:33] LABS: Hematocrit 44.3 % (42.0-52.0); Hemoglobin 14.7 g/dl (14.0-18.0); Mean Corpuscular HGB Conc 33.2 g/dl (31.0-36.0); Mean Corpuscular Hemoglobin 30.9 pg (27.0-33.0); Mean Corpuscular Volume 93.3 fL (80.0-98.0); Mean Platelet Volume 10.1 fL (9.4-12.4); Platelet Count 349 X10*3/uL (160-400); Red Blood Count 4.75 X10*6/uL (4.60-5.80); Red Cell Distribution Width 12.2 % (11.0-16.0); White Blood Count 23.9 X10*3/uL (4.8-10.8)
[2023-05-06 07:41] VITALS: BP 156/79; PULSE 103; RESP 20; TEMP 36.8; O2SAT 95
[2023-05-06 07:46] LABS: Alanine Aminotransferase 23 U/L (0-40); Alkaline Phosphatase 109 U/L (39-117); Anion Gap 18 (12-20); Aspartate Amino Transferase 20 U/L (5-37); Bilirubin Direct 0.2 mg/dL (0.0-0.5); Bilirubin Total 0.4 mg/dL (0.0-1.0); Blood Urea Nitrogen 14 mg/dL (9-16); Calcium 10.4 mg/dL (8.4-10.2); Carbon Dioxide 20 mmol/L (22-29); Chloride 102 mmol/L (96-108); Creatinine Clr Calc Pharmacy 108.8; Estimated Glomerular Filt Rate > 60; Glucose Random 216 mg/dL (60-115); Potassium 4.2 mmol/L (3.3-5.1); Sodium 136 mmol/L (135-145); Total Protein 8.1 g/dL (6.5-8.0)
[2023-05-06] MEDS: PHENobarbitaL 15 MG TABLET PO (07:47)
[2023-05-06] MEDS: Thiamine HCL 100 MG TABLET PO (07:47)
[2023-05-06] MEDS: amLODIPine Besylate 10 MG TABLET PO (07:47)
[2023-05-06] MEDS: lisinopriL 20 MG TABLET PO (07:48)
[2023-05-06] MEDS: Folic Acid 1 MG TABLET PO (07:48)
[2023-05-06] MEDS: FLUoxetine HCl 20 MG CAPSULE PO (07:48)
[2023-05-06] MEDS: gemfibroziL 600 MG TABLET PO (07:48)
[2023-05-06] MEDS: Insulin Lispro 100 UNIT/ML 3 ML VIAL SUBCUT (08:35)
--- NOTE | 2023-05-06 10:23 | MHC.CM.PN ---
Per ROUNDS discussion, Patient will be medically cleared for dc to home today, self care. CM met with Patient and his Mother at bedside and addressed IMM with them (original was given to Patient and a copy has been placed on the chart). Patient's Brother will provide transportation to home.
[2023-05-06 11:30] LABS: Glucose, Whole Blood 294 mg/dL (60-115)
[2023-05-06 11:41] VITALS: BP 163/89; PULSE 96; RESP 19; TEMP 36.7; O2SAT 95
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
== END 2023-05-06 13:20 | disposition home or self-care (01) | DRG 438 ==
LOC: HO.ED 17:56 → HO.EDOVER 21:03 → HO.ICU 21:10 → HO.IMC 04-30 15:34
PROVIDERS: Emergency Medicine; Internal Medicine; Internal Medicine Pulmonary Disease; Admitting Provider Registered Nurse Community Health; Emergency Provider Internal Medicine; PCP Family Medicine; Visit Provider Hospitalist
DX: K85.20 Alcohol induced acute pancreatitis without necrosis or infection (principal); G93.41 Metabolic encephalopathy; J96.01 Acute respiratory failure with hypoxia; I81 Portal vein thrombosis; K56.7 Ileus, unspecified; F10.239 Alcohol dependence with withdrawal, unspecified; F05 Delirium due to known physiological condition; E78.1 Pure hyperglyceridemia; F17.210 Nicotine dependence, cigarettes, uncomplicated; Z71.6 Tobacco abuse counseling; E87.70 Fluid overload, unspecified; R73.03 Prediabetes; E66.9 Obesity, unspecified; Z68.28 Body mass index [BMI] 28.0-28.9, adult; K76.0 Fatty (change of) liver, not elsewhere classified; Z91.199 Patient's noncompliance with other medical treatment and regimen due to unspecified reason; Z87.820 Personal history of traumatic brain injury; Z79.84 Long term (current) use of oral hypoglycemic drugs; Z79.899 Other long term (current) drug therapy
CPT/HCPCS: 36415; 71045; 74177; 80048; 80053; 80076; 81001; 82040; 82248; 82803; 82947; 83036; 83690; 83735; 84100; 84478; 85007; 85025; 85027; 93005; 94640; 99285; J0613; J1170; J1650; J1940; J2060; J2250; J2270; J2405; J2543; J2560; J3010; J3475; P9047; Q9967

== ENCOUNTER → 2023-04-28 10:11 | Outpatient (BNV) | payer OTHER, SELFPAY | PROVIDERS: Admitting Provider Registered Nurse Community Health; Emergency Provider Internal Medicine; PCP Family Medicine; Visit Provider Internal Medicine Cardiovascular Disease | DX: R10.13 Epigastric pain (principal) | CPT/HCPCS: 93010 ==

== ENCOUNTER → 2023-04-28 20:33 | Outpatient (BNV) | payer OTHER, SELFPAY | PROVIDERS: Admitting Provider Registered Nurse Community Health; Emergency Provider Internal Medicine; Visit Provider Internal Medicine Pulmonary Disease | DX: K85.90 Acute pancreatitis without necrosis or infection, unspecified (principal); E78.1 Pure hyperglyceridemia | CPT/HCPCS: 99232; 99291 ==

== ENCOUNTER → 2023-04-28 20:33 | Outpatient (BNV) | payer OTHER, SELFPAY | PROVIDERS: Admitting Provider Registered Nurse Community Health; Emergency Provider Internal Medicine; PCP Family Medicine; Visit Provider Internal Medicine | DX: E78.1 Pure hyperglyceridemia (principal) | CPT/HCPCS: 99232; 99233; 99239 ==

== ENCOUNTER → 2023-04-28 20:33 | Outpatient (BNV) | payer OTHER, SELFPAY | PROVIDERS: Admitting Provider Registered Nurse Community Health; Emergency Provider Internal Medicine; Visit Provider Surgery | DX: K85.90 Acute pancreatitis without necrosis or infection, unspecified (principal) | CPT/HCPCS: 99223; 99232 ==

== ENCOUNTER → 2023-04-28 20:33 | Outpatient (BNV) | payer OTHER, SELFPAY | PROVIDERS: Admitting Provider Registered Nurse Community Health; Emergency Provider Internal Medicine; Visit Provider Registered Nurse Community Health | DX: K85.90 Acute pancreatitis without necrosis or infection, unspecified (principal); E78.1 Pure hyperglyceridemia | CPT/HCPCS: 99291 ==

== ENCOUNTER 2023-05-31 09:25 | Outpatient (REF) | payer OTHER, MEDICAID, SELFPAY ==
[2023-05-31 11:38] LABS: MANUAL DIFF FLAG NO
[2023-05-31 12:28] LABS: Basophils Percent Auto 0.4 % (0-2); Eosinophils Absolute Auto 0.2 X10*3/uL (0.0-0.4); Eosinophils Percent Auto 2.1 % (0-4); Hematocrit 41.5 % (42.0-52.0); Hemoglobin 14.4 g/dl (14.0-18.0); Imm Gran Abs Auto 0.03 X10*3/uL (0.00-0.03); Imm Gran Pct Auto 0.4 % (0.0-0.4); Lymphocytes Absolute Auto 1.6 X10*3/uL (1.2-4.9); Lymphocytes Percent Auto 21.6 % (20-40); Mean Corpuscular HGB Conc 34.7 g/dl (31.0-36.0); Mean Corpuscular Hemoglobin 30.7 pg (27.0-33.0); Mean Corpuscular Volume 88.5 fL (80.0-98.0); Mean Platelet Volume 9.8 fL (9.4-12.4); Monocytes Absolute Auto 0.6 X10*3/uL (0.1-1.2); Monocytes Percent Auto 7.8 % (2-11); Neutrophils Absolute Auto 4.9 x10*3/uL (2.0-8.3); Neutrophils Percent Auto 67.7 % (45-73); Platelet Count 217 X10*3/uL (160-400); Red Blood Count 4.69 X10*6/uL (4.60-5.80); Red Cell Distribution Width 12.1 % (11.0-16.0); White Blood Count 7.2 X10*3/uL (4.8-10.8)
[2023-05-31 12:35] LABS: Alanine Aminotransferase 18 U/L (0-40); Albumin Level 4.5 g/dL (3.5-5.0); Alkaline Phosphatase 86 U/L (39-117); Anion Gap 11 (12-20); Aspartate Amino Transferase 9 U/L (5-37); Bilirubin Total 0.4 mg/dL (0.0-1.0); Blood Urea Nitrogen 16 mg/dL (9-16); Calcium 10.5 mg/dL (8.4-10.2); Carbon Dioxide 28 mmol/L (22-29); Chloride 104 mmol/L (96-108); Cholesterol 126 mg/dL (<200); Estimated Glomerular Filt Rate > 60; Glucose Random 294 mg/dL (60-115); HDL Cholesterol 30 mg/dL (>40); LDL Cholesterol Calculated 65 mg/dL (<100); Lipase 41 U/L (8-78); Sodium 138 mmol/L (135-145); TSH reflex Free T4 0.56 uIU/mL (0.32-4.0); Total Protein 7.4 g/dL (6.5-8.0); Triglycerides 159 mg/dL (<150)
[2023-05-31 12:40] LABS: Folate 14.3 ng/mL (> or = 4.0); Vitamin B12 476 pg/mL (200-900)
[2023-05-31 12:56] LABS: Creatinine Urine 432.68 mg/dL; Microalbum/Creatinine Ratio Ur 32.8 ug/mg cr (<30)
== END 2023-05-31 09:26 | disposition home or self-care (01) ==
LOC: HO.HHCL 09:25
PROVIDERS: Visit Provider Student in an Organized Health Care Education/Training Program
DX: K85.20 Alcohol induced acute pancreatitis without necrosis or infection (principal); Z13.29 Encounter for screening for other suspected endocrine disorder
CPT/HCPCS: 36415; 80053; 80061; 82043; 82607; 82746; 83690; 84443; 85025

== ENCOUNTER 2023-06-02 12:37 | Outpatient (REF) | payer OTHER, SELFPAY ==
[2023-06-02 14:27] LABS: Hematocrit 42.8 % (42.0-52.0); Hemoglobin 14.7 g/dl (14.0-18.0); Mean Corpuscular HGB Conc 34.3 g/dl (31.0-36.0); Mean Corpuscular Hemoglobin 30.8 pg (27.0-33.0); Mean Corpuscular Volume 89.7 fL (80.0-98.0); Mean Platelet Volume 9.3 fL (9.4-12.4); Platelet Count 205 X10*3/uL (160-400); Red Blood Count 4.77 X10*6/uL (4.60-5.80); Red Cell Distribution Width 12.1 % (11.0-16.0); White Blood Count 9.3 X10*3/uL (4.8-10.8)
[2023-06-02 16:19] LABS: Albumin Level 4.7 g/dL (3.5-5.0); Phosphorus 2.8 mg/dL (2.7-4.5)
[2023-06-02 16:27] LABS: Vitamin D 25-OH Total 23.3 ng/mL (>30)
[2023-06-03 10:48] LABS: Calcium (PTHI) 10.5 mg/dL (8.6-10.3); PTHI 21 pg/mL (16-77)
[2023-06-08 03:44] LABS: Calcium, Ionized 5.3 mg/dL (4.7-5.5)
== END 2023-06-02 12:38 | disposition home or self-care (01) ==
LOC: HO.LAB 12:37
PROVIDERS: Hospitalist; PCP Family Medicine; Visit Provider Internal Medicine
DX: K85.90 Acute pancreatitis without necrosis or infection, unspecified (principal); D72.829 Elevated white blood cell count, unspecified; E83.52 Hypercalcemia; E78.1 Pure hyperglyceridemia; Z78.9 Other specified health status; Z87.19 Personal history of other diseases of the digestive system
CPT/HCPCS: 36415; 82040; 82306; 82310; 82330; 83970; 84100; 85027; 99202

== ENCOUNTER 2023-06-02 12:37 | Outpatient (AMB) | payer OTHER, SELFPAY ==
--- NOTE | 2023-06-02 12:50 | A.OFFVIS_ITS ---
Intake Vital Signs 06/02/23 12:52 Height 5 ft 4 in Weight 152 lb 1.903 oz BMI 26.1 BP 115/77 Blood Pressure Location Lt brachial Position Sitting Pulse 83 Intake Visit Reasons: Pancreatitis Intake Note: Ruy presents in the office as a new patient for Pancreatitis. CC: He is having weight loss. He was seen in the ED this is a follow up. He is here because he has inflammation in the pancreas. No irregular bowel movements. Realtime Court Reporter Required: No Allergies No Known Allergies Allergy (Verified 06/02/23 12:53) HPI HPI Comments History of Present Illness Details 42 y.o M with PMH of hypertriglyceridemia, obesity, hypertension, traumatic brain injury,who is here for follow up of acute pancreatitis. This is his second admission for acute pancreatitis secondary to hypertriglyceridemia. Was noted to have TGs in 2000s in 2020 and this time TGs were elevated >5000. Pt's sister reports nonadherence with meds for at least 2-3 months prior to this. Pt previously used to be under care of Endocrinology for triglyceride manageme nt. Currently taking atorvastatin, fenofibrate and gemfibrozil. Also reports drinking etOH heavily. Unable to quantify and sister not aware either. On review of labs, calcium also noted to be high, will recheck. Pt himself Currently has no gastrointestinal complaints to include abdominal pain, nausea, vomiting. Has good appetite. No changes in bowel habits. Has not had a drink since before they recent hospitalization. His mother is also ensuring compliance with medications. [facility] Medical History History of traumatic brain injury HTN (hypertension) Hypertriglyceridemia Obesity (BMI 30-39.9) Prediabetes Surgical History No pertinent past surgical history Family History Father No problems noted. Mother No problems noted. Social History Household Members: Family Household Members Other:: lives with family Housing: Apartment Do you presently have visiting nurse or other home services: Yes ([employer]) Alcohol intake: former Patient Tobacco Use Status: Current everyday Tobacco user Tobacco use type: Cigarette e-Cigarette/Vaping Use: Never Used service: No Current occupational status: unemployed and disabled Current occupation: and disability Physical Exam Vital Signs: Last Vital Signs Pulse 83 06/02/23 12:52 BP 115/77 06/02/23 12:52 BMI result Body Mass Index 26.1 Gen appear: NAD HEENT: nonicteric, no cervical lymphadenopathy Chest: CTA CVS: Regular S1/S2 Abd: soft, nontender, nondistended, bowel sounds + Ext: no peripheral edema Neuro: A/Ox3, noted to move all extremities spontaneously Psych: interacting appropriately Assessment & Plan Assessment & Plan (1) History of pancreatitis: Code(s): Z87.19 - Personal history of other diseases of the digestive system (2) Hypercalcemia: Code(s): E83.52 - Hypercalcemia (3) Hypertriglyceridemia: Code(s): E78.1 - Pure hyperglyceridemia (4) Alcohol use: Code(s): Z78.9 - Other specified health status Plan Discussed with the patient as well as his sister that based on the LFTs on admission, acute pancreatitis was likely secondary to hypertriglyceridemia, as otherwise would have expected the transminases to be up. However, he should avoid alcohol completely. We will also recheck his serum calcium level along with phos, PTH and Vit D. He was advised to take lipid-lowering therapy as prescribed to avoid recurrent episodes of pancreatitis as well as cardiovascular complications. 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 Follow-up with Gastroenterology as needed. Orders: Orders Albumin Level 06/02/23 E83.52 - Hypercalcemia Calcium 06/02/23 E83.52 - Hypercalcemia Calcium, Ionized 06/02/23 E83.52 - Hypercalcemia Phosphorus 06/02/23 E83.52 - Hypercalcemia PTHI 06/02/23 E83.52 - Hypercalcemia Vitamin D 25-OH Total 06/02/23 E83.52 - Hypercalcemia Coding Level of Care Code New Pt Level 4 (27939) Diagnoses History of pancreatitis Z87.19 Hypercalcemia E83.52 Hypertriglyceridemia E78.1 Alcohol use Z78.9
[2023-06-02 12:52] VITALS: BP 115/77; PULSE 83; BMI 26.1
== END 2023-06-02 13:43 | disposition home or self-care (01) ==
PROVIDERS: PCP Family Medicine; Visit Provider Internal Medicine
DX: Z87.19 Personal history of other diseases of the digestive system (principal); E83.52 Hypercalcemia; E78.1 Pure hyperglyceridemia; Z78.9 Other specified health status
CPT/HCPCS: 99204

== ENCOUNTER 2023-07-01 17:50 | Emergency (ER) | payer OTHER, SELFPAY ==
[2023-07-01 18:32] VITALS: BP 137/99; PULSE 96; RESP 14; TEMP 36.8; O2SAT 98; BMI 24.9
[2023-07-01 19:16] LABS: MANUAL DIFF FLAG NO
[2023-07-01 19:17] LABS: Basophils Percent Auto 0.3 % (0-2); Eosinophils Percent Auto 0.2 % (0-4); Hematocrit 43.8 % (42.0-52.0); Hemoglobin 16.3 g/dl (14.0-18.0); Imm Gran Abs Auto 0.06 X10*3/uL (0.00-0.03); Imm Gran Pct Auto 0.4 % (0.0-0.4); Lymphocytes Absolute Auto 1.1 X10*3/uL (1.2-4.9); Lymphocytes Percent Auto 7.3 % (20-40); Mean Corpuscular HGB Conc 37.2 g/dl (31.0-36.0); Mean Corpuscular Hemoglobin 32.2 pg (27.0-33.0); Mean Corpuscular Volume 86.6 fL (80.0-98.0); Mean Platelet Volume 9.1 fL (9.4-12.4); Monocytes Absolute Auto 0.9 X10*3/uL (0.1-1.2); Monocytes Percent Auto 5.7 % (2-11); Neutrophils Absolute Auto 13.1 x10*3/uL (2.0-8.3); Neutrophils Percent Auto 86.1 % (45-73); Platelet Count 206 X10*3/uL (160-400); Red Blood Count 5.06 X10*6/uL (4.60-5.80); Red Cell Distribution Width 12.3 % (11.0-16.0); White Blood Count 15.2 X10*3/uL (4.8-10.8)
[2023-07-01 19:32] LABS: Alanine Aminotransferase 21 U/L (0-40); Albumin Level 4.6 g/dL (3.5-5.0); Alkaline Phosphatase 117 U/L (39-117); Aspartate Amino Transferase 12 U/L (5-37); Bilirubin Direct < 0.1 mg/dL (0.0-0.5); Bilirubin Total 0.6 mg/dL (0.0-1.0); Total Protein 9.2 g/dL (6.5-8.0)
[2023-07-01 19:41] LABS: Lipase 478 U/L (8-78)
== END 2023-07-01 22:44 | disposition left against medical advice (07) ==
PROVIDERS: Emergency Provider Emergency Medicine
DX: R10.12 Left upper quadrant pain (principal); R11.2 Nausea with vomiting, unspecified; E11.9 Type 2 diabetes mellitus without complications; I10 Essential (primary) hypertension; Z87.19 Personal history of other diseases of the digestive system; F17.210 Nicotine dependence, cigarettes, uncomplicated
CPT/HCPCS: 36415; 80076; 83690; 85025; 99281; 99283

== ENCOUNTER 2023-08-05 13:02 | Inpatient (IN) | payer OTHER, SELFPAY ==
[2023-08-05] VITALS (8 sets, daily range): BP systolic 143–171; BP diastolic 91–100; PULSE 78–95; RESP 15–20; TEMP 36.4–37.1; O2SAT 96–100; BMI 25.3; BMI 28.3
--- NOTE | ~2023-08-05 | CT_ITS ---
EXAMINATION: CT ABDOMEN AND PELVIS WITH CONTRAST CLINICAL INFORMATION: Epigastric pain. COMPARISON: 05/05/2023 TECHNIQUE: Multidetector volumetric images were obtained from the superior aspect of the liver through the pubic symphysis following administration 85 mL of Omnipaque 350 intravenous contrast. Sagittal and coronal reformatted images were obtained on the technologist's workstation. Oral contrast: No This CT examination was performed using dose optimization techniques as appropriate, variously including the following: *Automated exposure control *Adjustment of mA and/or kV according to patient size (this includes techniques or standardized protocols for targeted exams where dose is matched to indication/reason for exam; i.e. extremities or head) *Use of iterative reconstruction technique DLP: 402 mGy-cm FINDINGS: LUNG BASES: The visualized lung bases are unremarkable. LIVER, GALLBLADDER, AND BILIARY TREE: The liver is decreased in attenuation. No focal hepatic lesion or biliary ductal dilatation is present. The gallbladder is unremarkable with no evidence of radiopaque gallstones, gallbladder wall thickening, or obvious pericholecystic inflammatory changes. PANCREAS: Edematous pancreas with marked peripancreatic fluid and stranding. This is improved compared to the prior study. A small residual fluid collection adjacent to the tail of the pancreas measures 2.0 x 1.5 x 2.9 cm. The pancreas enhances relatively homogeneously with hypoenhancement in the distal body/tail of the pancreas. New focal hypodensity in the head of the pancreas measures 10 x 10 x 9 mm. No dilatation of the main pancreatic duct. SPLEEN: Unremarkable. ADRENAL GLANDS: Unremarkable. KIDNEYS AND URETERS: The kidneys are symmetric in size and enhancement. Few hypodensities in the right kidney are indeterminate but stable. No hydronephrosis or perinephric stranding. BLADDER: Circumferential wall thickening. GASTROINTESTINAL TRACT: Small and large bowel loops are of normal caliber. No small bowel obstruction. Appendix is within normal limits. ABDOMINAL WALL: No significant hernia is appreciated. LYMPH NODES: Multiple gastrohepatic ligament, periportal and retroperitoneal lymph nodes. VASCULAR: Normal caliber abdominal aorta. Thrombus in the main portal vein has resolved. PELVIC VISCERA: Enlarged prostate gland. OSSEOUS STRUCTURES: No destructive bone lesions. CT/CT abdomen pelvis w IV con IMPRESSION: Improvement in peripancreatic fluid and stranding compared with 05/05/2023. Predominantly homogeneous pancreatic enhancement with relative hypoenhancement in the distal body/tail of the pancreas. A small residual fluid collection adjacent to the tail of the pancreas measures 2.0 x 1.5 x 2.9 cm. New focal hypodensity in the head of the pancreas measures 10 x 10 x 9 mm. No dilatation of the main pancreatic duct. This may be further evaluated with MRI/MRCP.
--- NOTE | 2023-08-05 13:07 | ECG_ITS ---
Test Reason : PAIN Blood Pressure : / mmHG Vent. Rate : 094 BPM Atrial Rate : 094 BPM P-R Int : 124 ms QRS Dur : 080 ms QT Int : 364 ms P-R-T Axes : 053 051 035 degrees QTc Int : 455 ms Normal sinus rhythm Normal ECG When compared with ECG of 28-APR-2023 10:11, No significant change was found Heart rate has increased Referred By: Molina Seo Electronically Signed By:PRAFUL BONNER MD
--- NOTE | 2023-08-05 13:08 | ED_ITS ---
HPI - General Adult General Chief complaint: Abdominal Pain Stated complaint: Stomach Pain Time Seen by Provider: 08/05/23 13:24 Source: patient and old records reviewed Mode of arrival: ambulatory Limitations: no limitations History of Present Illness HPI narrative: 42 you male with PMH of HTN, pre-diabetes, pancreatitis in setting of ETOH and triglycerides last admit was in April - ICU stay on insulin gtt. He reports last drink was 2 days ago he had 3 beers he does not drink like he used to he does not feel shaky in the AM. He developed epigastric abdominal pain today with n/v x 2. No fevers, no diarrhea. He feels as if he has pancreatitis again. MD complaint: abdominal pain Onset (ago): day(s) (1) Location: abdomen Radiation: non-radiation Severity: moderate Quality: aching, dull and constant Pain Consistency: constant Relieving factors: none Exacerbating factors: eating Associated symptoms: loss of appetite and nausea/vomiting Treatments prior to arrival: none Related Data Home Medications Medication Instructions Recorded Confirmed fluoxetine 20 mg capsule 20 mg PO DAILY 08/06/20 08/05/23 blood sugar diagnostic #10 ea 02/04/21 11/27/21 lancets 33 gauge #100 ea 02/04/21 11/27/21 amlodipine 10 mg tablet 10 mg PO QAM 04/28/23 08/05/23 folic acid 1 mg tablet 1 mg PO DAILY 04/28/23 08/05/23 lisinopril 20 mg tablet 20 mg PO DAILY 04/28/23 08/05/23 metformin 500 mg tablet,extended 500 mg PO QPM 04/28/23 08/05/23 release 24 hr thiamine HCl (vitamin B1) 100 mg 100 mg PO DAILY 04/28/23 08/05/23 tablet fenofibrate 160 mg tablet 160 mg PO QPM 06/02/23 08/05/23 icosapent ethyl 1 gram capsule 2 g PO BID 06/02/23 08/05/23 (Vascepa) insulin aspart U-100 100 unit/mL 4 unit subcut DAILY@1630 06/02/23 08/05/23 (3 mL) subcutaneous pen (Novolog FlexPen U-100 Insulin aspart) insulin glargine 100 unit/mL (3 10 unit subcut BEDTIME 06/02/23 08/05/23 mL) subcutaneous pen (Lantus Solostar U-100 Insulin) Previous Rx's Medication Instructions Recorded atorvastatin 80 mg tablet 80 mg PO BEDTIME 30 days #30 tabs 02/04/21 Allergies Allergy/AdvReac Type Severity Reaction Status Date / Time No Known Allergies Allergy Verified 06/02/23 12:53 Review of Systems 2 Review of Systems: Constitutional : No Weight loss, No Fever, No Chills ENT/Mouth : No sore throat, No Rhinorrhea Eyes: No Swelling, No Redness Cardiovascular : No Chest Pain, No SOB, NoEdema Respiratory : No Cough, No Sputum, No Wheezing Gastrointestinal : Positive Nausea, Positive Vomiting, no Diarrhea, positive abdominal Pain, No Hematochezia, No Melena Genitourinary : No Dysuria, No Urinary Frequency, No Hematuria, No Urgency Musculoskeletal : No joint pain, No Myalgias, No Joint Swelling Skin : No Skin Lesions, No rash Neuro : No Weakness, No Numbness, No Dizziness, No Headache Psych : No Anxiety/Panic, No Depression All other systems reviewed and are negative. [facility] Past Medical History Attestation statement: The following information was validated with the patient. Source: old records reviewed Medical History Obesity (BMI 30-39.9) History of traumatic brain injury Prediabetes Hypertriglyceridemia HTN (hypertension) Surgical History No pertinent past surgical history Family History Family History Father No problems noted. Mother No problems noted. Social History Social History Household Members: Other Household Members Other:: mother Housing: House Do you presently have visiting nurse or other home services: Yes ([employer] services from) Alcohol intake: current Alcohol intake frequency: holidays/special occasions only Alcohol type: beer Patient Tobacco Use Status: Never used Tobacco Tobacco use type: Cigarette Cigarettes Per Day: 3 Smoked in Last 30 Days: Yes e-Cigarette/Vaping Use: Never Used Patient Interested in Nicotine Replacement: No Patient Given Instructions on How to Stop Smoking: No Second Hand Smoke Exposure: Yes Use of substances other than those prescribed or required for medical reasons: No Currently Displaying Signs/Symptoms of Drug Intoxication Withdrawal: No Any prior treatment program specific to substance use: No Have you been hit, kicked, punched, or otherwise hurt by someone within the past year? If so, by whom?: No Do you feel safe in your current relationship?: No Current Relationship Is there a partner from a previous relationship who is making you feel unsafe now?: No Are you made to feel afraid or neglected: No Spiritual Healthcare Practices: N/a Anabaptism Healthcare Practices: N/A Cultural Healthcare Practices: N/A Advance Directives: No Advance Directives Information Provided: No Do you have thoughts of harming others: None Do you have a plan to hurt others: No Plan Recently lost weight without trying: Yes How much weight loss: 2-13 pounds Eating poorly because of decreased appetite: No Nutrition screen score: 3 Nutrition Risks: No Nutritional Risk Poor oral hygiene: No service: No Current occupational status: unemployed and disabled Current occupation: and disability Physical Exam ED Vital Signs: Vital Signs - 24 hr 08/05/23 13:06 08/05/23 15:14 Temperature 98.7 F 98.2 F Pulse Rate 90 92 Respiratory Rate 16 18 Blood Pressure 171/99 H 156/97 H Pulse Oximetry 97 97 Oxygen Delivery Method Room Air Room Air BMI result Body Mass Index 25.3 Appearance: Alert. Oriented X3. No acute distress. Eyes: Pupils equal, round and reactive to light. ENT: Pharynx normal. Neck: Normal inspection. Neck supple. CVS: Normal heart rate and rhythm. Pulses normal. Respiratory: No respiratory distress. Breath sounds normal. Abdomen: Soft and ttp in epigastric area no rebound or guarding, seems mildly bloated Skin: Skin warm and dry. Normal skin color. Normal skin turgor. Extremities: No lower extremity edema. No calf ttp Neuro: Oriented X 3. No motor deficit. No sensory deficit. no tremors Course Course Course Narrative: RME- 42 year old male presents for evaluation of burning upper abdominal pain for the last few days. Hx of alcohol abuse and pancreatitis. Plan for labs. Will defer potential imaging primary provider. Reevaluation(s) Reevaluation #1: NA corrects to 128 given triglycerides and lipase will start on insulin drip Medications Administered Generic Name Dose Route Start Last Admin Trade Name Freq PRN Reason Stop Dose Admin Heparin Sodium (Porcine) 5,000 unit 08/05/23 18:00 08/05/23 18:01 Heparin Sodium,Porcine 5,000 Unit/Ml Vial SUBCUT 5,000 unit Q8H TOBY Administration Hydromorphone HCl 0.5 mg 08/05/23 17:42 08/05/23 17:59 Hydromorphone Hcl 1 Mg/Ml Syringe IVPUSH 0.5 mg Q3H PRN Administration Pain, Severe (Pain Scale 7-10) Protocol Insulin Human Regular 100 unit in 100 mls @ 4 mls/hr 08/05/23 14:30 08/05/23 19:03 Myxredlin IVCONT 4 unit/hr .Q24H TOBY 4 mls/hr Titration Protocol 4 UNIT/HR Dextrose/Sodium Chloride 1,000 mls @ 150 mls/hr 08/05/23 15:45 08/05/23 15:40 D5ns IVCONT 100 mls/hr .Q6H40M TOBY Administration Potassium Chloride 10 meq in 100 mls @ 100 mls/hr 08/05/23 19:45 08/05/23 20:16 Potassium Chloride/H20 IV 08/05/23 23:44 100 mls/hr Q1H TOBY Administration Ondansetron HCl 4 mg 08/05/23 17:40 08/05/23 17:57 Ondansetron Hcl 4 Mg/2 Ml Vial IVPUSH 4 mg Q4H PRN Administration Nausea Discontinued Medications Generic Name Dose Route Start Last Admin Trade Name Freq PRN Reason Stop Dose Admin Hydromorphone HCl 0.5 mg 08/05/23 13:31 08/05/23 13:51 Hydromorphone Hcl 0.5 Mg/0.5 Ml Syringe IVPUSH 08/05/23 13:32 0.5 mg ONCE ONE Administration Protocol Lactated Ringer's 1,000 mls @ 999 mls/hr 08/05/23 13:45 08/05/23 15:08 Lr IV 08/05/23 14:45 Infused .Q1H1M TOBY Infusion Thiamine HCl 200 mg/ Sodium 102 mls @ 204 mls/hr 08/05/23 13:31 08/05/23 14:36 Chloride IV 08/05/23 14:00 Infused ONCE ONE Infusion Dextrose/Sodium Chloride 1,000 mls @ 100 mls/hr 08/05/23 15:00 08/05/23 15:38 D51/2ns IVCONT Infused .Q10H TOBY Infusion Iohexol 85 ml 08/05/23 15:57 08/05/23 15:58 Iohexol 350 Mg/Ml 100 Ml Infus..Btl IV 08/05/23 15:58 85 ml ONCE ONE Administration Ondansetron HCl 4 mg 08/05/23 13:31 08/05/23 13:49 Ondansetron Hcl 4 Mg/2 Ml Vial IVPUSH 08/05/23 13:32 4 mg ONCE ONE Administration Medical Decision Making Medical Decision Making [facility] Narrative: 42 you male with PMH of HTN, pre-diabetes, pancreatitis in setting of ETOH and triglycerides here with epigastric pain states he did drink 2 days ago he currently has no withdrawal symptoms, he states has no concerns for withdrawal. At this time I am ordering labs, triglycerides, ETOH level. Will start on IV LR, dilaudid, zofran, CT scan and check is lytes/labs/triglycerides. IV dilaudid for pain ordered. Differential Diagnosis Differential Diagnoses: The differential diagnosis associated with the presentation includes gastritis, viral syndrome, pancreatitis Admission/Observation Consideration of admission/observation: Escalation of care including admission/observation considered admit to ICU Dr. ortiz aware on insulin drip Consult Healthcare Provider Management of the patient was discussed with: Passenger Representative (ICU aware) Dr. Solorzano aware of plan Lab Data [facility] Lab Attestation statement: I reviewed the patient's lab results. 08/05/23 13:15 08/05/23 19:58 Labs: Lab Results 08/05/23 08/05/23 08/05/23 Range/Units 13:15 13:37 14:09 WBC 9.4 (4.8-10.8) X10*3/uL RBC 4.55 L (4.60-5.80) X10*6/uL Hgb 13.3 L (14.0-18.0) g/dl Hct 39.7 L (42.0-52.0) % MCV 87.3 (80.0-98.0) fL MCH 29.2 (27.0-33.0) pg MCHC 33.5 (31.0-36.0) g/dl RDW 12.4 (11.0-16.0) % Plt Count 207 (160-400) X10*3/uL MPV 9.1 L (9.4-12.4) fL Immature Gran % (Auto) 0.5 H (0.0-0.4) % Neut % (Auto) 78.0 H (45-73) % Lymph % (Auto) 14.2 L (20-40) % Crosby % (Auto) 6.4 (2-11) % Eos % (Auto) 0.6 (0-4) % Baso % (Auto) 0.3 (0-2) % Lymph # (Auto) 1.3 (1.2-4.9) X10*3/uL Crosby # (Auto) 0.6 (0.1-1.2) X10*3/uL Eos # (Auto) 0.1 (0.0-0.4) X10*3/uL Baso # (Auto) 0.0 (0.0-0.2) X10*3/uL Abs Immat Gran (auto) 0.05 H (0.00-0.03) X10*3/uL Absolute Neuts (auto) 7.3 (2.0-8.3) x10*3/uL Absolute Nucleated RBC 0.000 (0.0-0.012) X10*3/uL Nucleated RBC % (auto) 0.0 (0.0-0.2) /100WBC Sodium 123 L (135-145) mmol/L Potassium 3.4 D (3.3-5.1) mmol/L Chloride 90 L (96-108) mmol/L Carbon Dioxide 25 (22-29) mmol/L Anion Gap 11 L (12-20) BUN 13 (9-16) mg/dL Creatinine 0.84 (0.5-1.4) mg/dL Estim Creat Clear Calc 95.9 Estimated GFR > 60 POC Glucose 298 H (60-115) mg/dL Random Glucose 321 H (60-115) mg/dL Calcium 10.0 D (8.4-10.2) mg/dL Magnesium 1.8 (1.6-2.6) mg/dL Total Bilirubin 0.6 (0.0-1.0) mg/dL AST 18 (5-37) U/L ALT 32 (0-40) U/L Alkaline Phosphatase 112 (39-117) U/L Lactate Dehydrogenase 192 (118-273) U/L Total Protein 10.0 H (6.5-8.0) g/dL Albumin 4.1 (3.5-5.0) g/dL Triglycerides > 5680 H (<150) mg/dL Lipase 939 H (8-78) U/L Urine Osmolality (373-1093) mosm/kg Ur Random Sodium mmol/L Urine Opiates Screen (Not Detect) Urine Fentanyl Screen (Not Detect) Ur Barbiturates Screen (Not Detect) Ur Phencyclidine Scrn (Not Detect) Ur Amphetamines Screen (Not Detect) U Benzodiazepines Scrn (Not Detect) Urine Cocaine Screen (Not Detect) U Marijuana (THC) Screen (Not Detect) Ethyl Alcohol < 10 mg/dL 08/05/23 08/05/23 08/05/23 Range/Units 15:44 15:58 16:58 WBC (4.8-10.8) X10*3/uL RBC (4.60-5.80) X10*6/uL Hgb (14.0-18.0) g/dl Hct (42.0-52.0) % MCV (80.0-98.0) fL MCH (27.0-33.0) pg MCHC (31.0-36.0) g/dl RDW (11.0-16.0) % Plt Count (160-400) X10*3/uL MPV (9.4-12.4) fL Immature Gran % (Auto) (0.0-0.4) % Neut % (Auto) (45-73) % Lymph % (Auto) (20-40) % Crosby % (Auto) (2-11) % Eos % (Auto) (0-4) % Baso % (Auto) (0-2) % Lymph # (Auto) (1.2-4.9) X10*3/uL Crosby # (Auto) (0.1-1.2) X10*3/uL Eos # (Auto) (0.0-0.4) X10*3/uL Baso # (Auto) (0.0-0.2) X10*3/uL Abs Immat Gran (auto) (0.00-0.03) X10*3/uL Absolute Neuts (auto) (2.0-8.3) x10*3/uL Absolute Nucleated RBC (0.0-0.012) X10*3/uL Nucleated RBC % (auto) (0.0-0.2) /100WBC Sodium (135-145) mmol/L Potassium (3.3-5.1) mmol/L Chloride (96-108) mmol/L Carbon Dioxide (22-29) mmol/L Anion Gap (12-20) BUN (9-16) mg/dL Creatinine (0.5-1.4) mg/dL Estim Creat Clear Calc Estimated GFR POC Glucose 249 H 231 H (60-115) mg/dL Random Glucose (60-115) mg/dL Calcium (8.4-10.2) mg/dL Magnesium (1.6-2.6) mg/dL Total Bilirubin (0.0-1.0) mg/dL AST (5-37) U/L ALT (0-40) U/L Alkaline Phosphatase (39-117) U/L Lactate Dehydrogenase (118-273) U/L Total Protein (6.5-8.0) g/dL Albumin (3.5-5.0) g/dL Triglycerides (<150) mg/dL Lipase (8-78) U/L Urine Osmolality 934 (373-1093) mosm/kg Ur Random Sodium 45.0 mmol/L Urine Opiates Screen Not Detected (Not Detect) Urine Fentanyl Screen Not Detected (Not Detect) Ur Barbiturates Screen Not Detected (Not Detect) Ur Phencyclidine Scrn Not Detected (Not Detect) Ur Amphetamines Screen Not Detected (Not Detect) U Benzodiazepines Scrn Not Detected (Not Detect) Urine Cocaine Screen Not Detected (Not Detect) U Marijuana (THC) Screen Not Detected (Not Detect) Ethyl Alcohol mg/dL Independent Interpretation I performed an independent interpretation of an: EKG and CT Scan (pancreatitis ) Interpretation: Rate: 94 Rhythm: NSR [place]: mpr,a; Normal P waves. Normal GIN. Normal QRS complex. ST T wave : normal no CHANDLER qTC: normal prior studies: no acute ischemia The study has been interpreted contemporaneously by me. . Radiology Impression Discussion of test interpretation with radiology: I have reviewed the radiologist's reading. External Record Review External record reviewed: Inpatient record Critical Care Time Critical Care Time Critical Care Time: Yes Total Critical Care Time: 45 Attestation: IV dilaudid for pain - it is improved, insulin gtt, planned admit I attest to this time spent taking care of the patient Discharge Plan Discharge Clinical Impression: Abdominal pain Qualifiers: Abdominal location: epigastric Qualified Code(s): R10.13 - Epigastric pain Pancreatitis Qualifiers: Chronicity: acute Pancreatitis type: other Acute pancreatitis complication: no infection or necrosis Qualified Code(s): K85.80 - Other acute pancreatitis without necrosis or infection Patient Disposition: Admitted As Inpatient Interventions: Admission Worksheet (ED) Last Done: 08/05/23 19:10 Discharge Date/Time: 08/05/23 19:11
[2023-08-05 13:29] LABS: Basophils Percent Auto 0.3 % (0-2); Eosinophils Absolute Auto 0.1 X10*3/uL (0.0-0.4); Eosinophils Percent Auto 0.6 % (0-4); Hematocrit 39.7 % (42.0-52.0); Imm Gran Abs Auto 0.05 X10*3/uL (0.00-0.03); Imm Gran Pct Auto 0.5 % (0.0-0.4); Lymphocytes Absolute Auto 1.3 X10*3/uL (1.2-4.9); Lymphocytes Percent Auto 14.2 % (20-40); Mean Corpuscular Volume 87.3 fL (80.0-98.0); Mean Platelet Volume 9.1 fL (9.4-12.4); Monocytes Absolute Auto 0.6 X10*3/uL (0.1-1.2); Monocytes Percent Auto 6.4 % (2-11); Neutrophils Absolute Auto 7.3 x10*3/uL (2.0-8.3); Platelet Count 207 X10*3/uL (160-400); Red Blood Count 4.55 X10*6/uL (4.60-5.80); Red Cell Distribution Width 12.4 % (11.0-16.0); White Blood Count 9.4 X10*3/uL (4.8-10.8)
[2023-08-05 13:35] LABS: Mean Corpuscular HGB Conc 33.5 g/dl (31.0-36.0); Mean Corpuscular Hemoglobin 29.2 pg (27.0-33.0)
[2023-08-05 13:36] LABS: Hemoglobin 13.3 g/dl (14.0-18.0)
[2023-08-05] MEDS: ondansetron HCL 4 MG/2 ML VIAL IVPUSH ×2 (13:49→17:57)
[2023-08-05] MEDS: HYDROmorphone HCl 0.5 MG/0.5 ML SYRINGE IVPUSH (13:51)
[2023-08-05] MEDS: Lactated Ringers 1,000 ML 999 ML IV (13:55)
[2023-08-05] MEDS: Thiamine HCL 200 MG in 0.9 % Sodium Chloride 100 ML 204 MG IV (13:56)
[2023-08-05 14:03] LABS: Ethanol < 10 mg/dL
[2023-08-05 14:13] LABS: Glucose, Whole Blood 298 mg/dL (60-115)
[2023-08-05 14:15] LABS: Lactate Dehydrogenase 192 U/L (118-273); Magnesium 1.8 mg/dL (1.6-2.6); Triglycerides > 5680 mg/dL (<150)
[2023-08-05 14:16] LABS: Alanine Aminotransferase 32 U/L (0-40); Albumin Level 4.1 g/dL (3.5-5.0); Alkaline Phosphatase 112 U/L (39-117); Anion Gap 11 (12-20); Aspartate Amino Transferase 18 U/L (5-37); Bilirubin Total 0.6 mg/dL (0.0-1.0); Blood Urea Nitrogen 13 mg/dL (9-16); Carbon Dioxide 25 mmol/L (22-29); Chloride 90 mmol/L (96-108); Creatinine Clr Calc Pharmacy 95.9; Estimated Glomerular Filt Rate > 60; Glucose Random 321 mg/dL (60-115); Lipase 939 U/L (8-78); Potassium 3.4 mmol/L (3.3-5.1); Sodium 123 mmol/L (135-145)
[2023-08-05] MEDS: Insulin Regular/NS 100 UNIT/100 ML PLAST..BAG 6 UNIT IVCONT (14:56)
--- NOTE | 2023-08-05 15:01 | PHA.MEDREC ---
Pharmacy Consult ? Medication Reconciliation Pharmacy has completed the medication reconciliation. Patient confirmed medication outside med box. Reports Vascepa needs to be refilled but will bring it in as we do not have it on [facility]. Contact [facility] for medication in med box. They reported patient was prescribed gemfibrozil from [facility] by [place] however it was put it on hold because patient was already on fenofibrate. Letty Pratt, TysonD
[2023-08-05] MEDS: Dextrose 5 % and 0.45 % NaCl 1,000 ML 100 ML IVCONT (15:09)
--- NOTE | 2023-08-05 15:16 | PC.NURSE ---
pt aox4. ambulatory. hx pancriatits - reports that when having breakfast this AM felt 8/10 abd pain that felt liker previous pancreatitis. 2IV lines placed 20 R AC, 20 left forearm. at this time 5% dextrose and insulin drip infusing. dilaudid given with some effect - pain now 6/10 vitals stable, POC checks every hour initiated.
[2023-08-05] MEDS: Dextrose 5 % and 0.9 % NaCl 1,000 ML 100 ML IVCONT ×2 (15:40→22:30)
--- NOTE | 2023-08-05 15:40 | PC.NURSE ---
switched fluids from d5% 0.45% NS, to d5% 0.9% NS
[2023-08-05] MEDS: iohexoL 350 MG/ML 100 ML INFUS..BTL 85 ML IV (15:58)
[2023-08-05 16:01] LABS: Glucose, Whole Blood 249 mg/dL (60-115)
[2023-08-05 16:07] LABS: Amphetamine Screen Urine Not Detected (Not Detect); Barbiturates, Urine Not Detected (Not Detect); Benzodiazepines Screen Urine Not Detected (Not Detect); Cannabinoid Screen Urine Not Detected (Not Detect); Cocaine Screen Urine Not Detected (Not Detect); Fentanyl, urine Not Detected (Not Detect); Opiate Screen Urine Not Detected (Not Detect); Phencyclidine Screen Urine Not Detected (Not Detect)
--- NOTE | 2023-08-05 16:12 | PC.NURSE ---
POC 249, drop of 49. per Dr. Menendez, do not titrate drip but leave it running at the 6U/hr
[2023-08-05 16:18] LABS: Osmolality Urine 934 mosm/kg (373-1093)
[2023-08-05 17:03] LABS: Glucose, Whole Blood 231 mg/dL (60-115)
--- NOTE | 2023-08-05 17:08 | P.HPCC_ITS ---
History of Present Illness Date of Service: 08/05/23 Attending physician on admission: Jack Kim Chief Complaint: abdominal pain 42-year-old type 2 diabetic male with known severe hypertriglyceridemia previous episode of severe secondary pancreatitis presents again with acute abdominal pain triglyceride level of 5680 and pseudo hyponatremia with a measured sodium of 123 significantly elevated and increasing lipase level CT scan showing definite signs of acute pancreatitis with some surrounding fat stranding calcium level is normal renal function basically is normal bedside echo showing normal LV and RV function with no primary valve or pericardial disease and a small diameter with marked inspiratory collapse of the IVC so still indicating relative hypovolemia He claims to have been compliant with all of his hypo triglyceride E vernon medications so at this point he might need referral to a metabolic clinic and might need something shabbir to maybe a scheduled be a plasmapheresis if medication can to the the trick by itself Review of Systems 2 Review of Systems: Yes all other systems are reviewed and are negative PMFSH Past Medical History Medical History Obesity (BMI 30-39.9) History of traumatic brain injury Prediabetes Hypertriglyceridemia HTN (hypertension) Family History Family History Father No problems noted. Mother No problems noted. 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) Alcohol intake: current Alcohol intake frequency: holidays/special occasions only Alcohol type: beer Patient Tobacco Use Status: Never used Tobacco Tobacco use type: Cigarette Cigarettes Per Day: 3 Smoked in Last 30 Days: Yes e-Cigarette/Vaping Use: Never Used Patient Interested in Nicotine Replacement: No Patient Given Instructions on How to Stop Smoking: No Second Hand Smoke Exposure: Yes Use of substances other than those prescribed or required for medical reasons: No Currently Displaying Signs/Symptoms of Drug Intoxication Withdrawal: No Any prior treatment program specific to substance use: No Have you been hit, kicked, punched, or otherwise hurt by someone within the past year? If so, by whom?: No Do you feel safe in your current relationship?: No Current Relationship Is there a partner from a previous relationship who is making you feel unsafe now?: No Are you made to feel afraid or neglected: No Spiritual Healthcare Practices: N/a Confucianist Healthcare Practices: N/A Cultural Healthcare Practices: N/A Advance Directives: No Advance Directives Information Provided: No Do you have thoughts of harming others: None Do you have a plan to hurt others: No Plan Recently lost weight without trying: Yes How much weight loss: 2-13 pounds Eating poorly because of decreased appetite: No Nutrition screen score: 3 Nutrition Risks: No Nutritional Risk Poor oral hygiene: No service: No Current occupational status: unemployed and disabled Current occupation: and disability Meds Allergies Allergy/AdvReac Type Severity Reaction Status Date / Time No Known Allergies Allergy Verified 06/02/23 12:53 Active Medications: Current Medications Dextrose (Dextrose 50 % 25 Gm/50 Ml Syringe) 25 gm IVPUSH Q30M PRN PRN Reason: BG < 70 Heparin Sodium (Porcine) (Heparin Sodium,Porcine 5,000 Unit/Ml Vial) 5,000 unit SUBCUT Q8H [facility] Insulin Human Regular (Myxredlin) 100 unit in 100 mls @ 6 mls/hr IVCONT .[id number] [facility]; Protocol Last Admin: 08/05/23 14:56 Dose: 6 unit/hr, 6 mls/hr Dextrose/Sodium Chloride (D5ns) 1,000 mls @ 150 mls/hr IVCONT .Q6H40M [facility] Last Admin: 08/05/23 15:40 Dose: 100 mls/hr Home Medications Medication Instructions Recorded Confirmed Last Taken Type fluoxetine 20 mg capsule 20 mg PO DAILY 08/06/20 08/05/23 08/05/20 History blood sugar diagnostic #10 ea 02/04/21 11/27/21 Unknown History lancets 33 gauge #100 ea 02/04/21 11/27/21 Unknown History amlodipine 10 mg tablet 10 mg PO QAM 04/28/23 08/05/23 Unknown History folic acid 1 mg tablet 1 mg PO DAILY 04/28/23 08/05/23 Unknown History lisinopril 20 mg tablet 20 mg PO DAILY 04/28/23 08/05/23 Unknown History metformin 500 mg tablet,extended 500 mg PO QPM 04/28/23 08/05/23 Unknown History release 24 hr thiamine HCl (vitamin B1) 100 mg 100 mg PO DAILY 04/28/23 08/05/23 Unknown History tablet fenofibrate 160 mg tablet 160 mg PO QPM 06/02/23 08/05/23 Unknown History icosapent ethyl 1 gram capsule 2 g PO BID 06/02/23 08/05/23 Unknown History (Vascepa) insulin aspart U-100 100 unit/mL 4 unit subcut DAILY@1630 06/02/23 08/05/23 Unknown History (3 mL) subcutaneous pen (Novolog FlexPen U-100 Insulin aspart) insulin glargine 100 unit/mL (3 10 unit subcut BEDTIME 06/02/23 08/05/23 Unknown History mL) subcutaneous pen (Lantus Solostar U-100 Insulin) Physical Exam 2 Vital Signs: Vital Signs: Last Vital Signs Temp 98.2 F 08/05/23 15:14 Pulse 92 08/05/23 15:14 Resp 18 08/05/23 15:14 BP 156/97 H 08/05/23 15:14 Pulse Ox 97 08/05/23 15:14 O2 Del Method Room Air 08/05/23 15:14 BMI result Body Mass Index 25.3 Continued distress from vague epigastric discomfort and nausea Awake and alert neck veins flat and there are good bilateral carotid upstrokes To palpation but no organomegaly and no peritoneal signs Is clear no adventitious signs Bedside echo with normal LV and RV function Results Labs 08/06/23 04:25 08/06/23 04:25 Labs: Laboratory Results - last 24 hr 08/05/23 08/05/23 08/05/23 13:15 13:37 14:09 MCV 87.3 MCH 29.2 MCHC 33.5 RDW 12.4 Plt Count 207 MPV 9.1 L Immature Gran % (Auto) 0.5 H Neut % (Auto) 78.0 H Lymph % (Auto) 14.2 L Williams % (Auto) 6.4 Eos % (Auto) 0.6 Baso % (Auto) 0.3 Lymph # (Auto) 1.3 Williams # (Auto) 0.6 Eos # (Auto) 0.1 Baso # (Auto) 0.0 Abs Immat Gran (auto) 0.05 H Absolute Neuts (auto) 7.3 Absolute Nucleated RBC 0.000 Nucleated RBC % (auto) 0.0 Anion Gap 11 L Estim Creat Clear Calc 95.9 Estimated GFR > 60 POC Glucose 298 H Random Glucose 321 H Calcium 10.0 D Magnesium 1.8 Total Bilirubin 0.6 AST 18 ALT 32 Alkaline Phosphatase 112 Lactate Dehydrogenase 192 Total Protein 10.0 H Albumin 4.1 Triglycerides > 5680 H Lipase 939 H Urine Osmolality Ur Random Sodium Urine Opiates Screen Urine Fentanyl Screen Ur Barbiturates Screen Ur Phencyclidine Scrn Ur Amphetamines Screen U Benzodiazepines Scrn Urine Cocaine Screen U Marijuana (THC) Screen Ethyl Alcohol < 10 08/05/23 08/05/23 08/05/23 15:44 15:58 16:58 MCV MCH MCHC RDW Plt Count MPV Immature Gran % (Auto) Neut % (Auto) Lymph % (Auto) Williams % (Auto) Eos % (Auto) Baso % (Auto) Lymph # (Auto) Williams # (Auto) Eos # (Auto) Baso # (Auto) Abs Immat Gran (auto) Absolute Neuts (auto) Absolute Nucleated RBC Nucleated RBC % (auto) Anion Gap Estim Creat Clear Calc Estimated GFR POC Glucose 249 H 231 H Random Glucose Calcium Magnesium Total Bilirubin AST ALT Alkaline Phosphatase Lactate Dehydrogenase Total Protein Albumin Triglycerides Lipase Urine Osmolality 934 Ur Random Sodium 45.0 Urine Opiates Screen Not Detected Urine Fentanyl Screen Not Detected Ur Barbiturates Screen Not Detected Ur Phencyclidine Scrn Not Detected Ur Amphetamines Screen Not Detected U Benzodiazepines Scrn Not Detected Urine Cocaine Screen Not Detected U Marijuana (THC) Screen Not Detected Ethyl Alcohol Assessment and Plan (1) Pancreatitis: Qualifiers: Acute pancreatitis complication: no infection or necrosis Chronicity: a cute Pancreatitis type: other Qualified Code(s): K85.80 - Other acute pancreatitis without necrosis or infection Status: Acute (2) Abdominal pain: Qualifiers: Abdominal location: epigastric Qualified Code(s): R10.13 - Epigastric pain Status: Acute (3) Alcohol use: Status: Acute (4) History of pancreatitis: Status: Acute (5) Hypercalcemia: Status: Acute (6) Leukocytosis: Status: Acute (7) Hypertriglyceridemia: Status: Acute (8) Prediabetes: Status: Acute (9) HTN (hypertension): Qualifiers: Hypertension type: essential hypertension Qualified Code(s): I10 - Essential (primary) hypertension Status: Acute Plan Currently being admitted for aggressive fluid replacement as he is markedly hypovolemic although not shocky and as well as continuous IV insulin infusion for the hypertriglyceridemia and to monitor any possible complication or progression of pancreatitis Time Spent With Patient Time: Total time managing care of this patient today 60____ minutes.
[2023-08-05] MEDS: HYDROmorphone HCl 1 MG/ML SYRINGE 0.5 MG IVPUSH (17:59)
[2023-08-05] MEDS: Heparin Sodium,Porcine 5,000 UNIT/ML VIAL 5000 UNIT SUBCUT (18:01)
[2023-08-05 18:02] LABS: Glucose, Whole Blood 205 mg/dL (60-115)
--- NOTE | 2023-08-05 18:03 | PC.NURSE ---
pt had one bought of vomiting and reports increased abd pain 05/20. medicated with prn orders for zofran and Dilaudid.
[2023-08-05 19:07] LABS: Glucose, Whole Blood 159 mg/dL (60-115)
[2023-08-05 20:03] LABS: Glucose, Whole Blood 164 mg/dL (60-115)
[2023-08-05 20:12] LABS: VBG Base Excess -1.8 mmol/L; VBG HCO3 21 mmol/L (22-26); VBG pCO2 30 mmHg; VBG pH 7.44 (7.32-7.43); VBG pO2 68 mmHg
[2023-08-05] MEDS: Potassium Chloride/H20 10 MEQ/100 ML PIGGYBACK 100 MEQ IV ×2 (20:16→21:16)
[2023-08-05 20:47] LABS: Blood Urea Nitrogen 10 mg/dL (9-16); Calcium 8.9 mg/dL (8.4-10.2); Creatinine Clr Calc Pharmacy 139.1; Estimated Glomerular Filt Rate > 60; Glucose Random 155 mg/dL (60-115); Magnesium 1.8 mg/dL (1.6-2.6); Phosphorus 1.3 mg/dL (2.7-4.5)
[2023-08-05 20:57] LABS: Triglycerides > 5680 mg/dL (<150)
[2023-08-05 21:04] LABS: Glucose, Whole Blood 169 mg/dL (60-115)
[2023-08-05 21:05] LABS: Venous Blood Gas Refer to POC result
[2023-08-05 21:27] LABS: Anion Gap 22 (12-20); Carbon Dioxide 12 mmol/L (22-29); Chloride 102 mmol/L (96-108); Potassium 3.1 mmol/L (3.3-5.1); Sodium 133 mmol/L (135-145)
[2023-08-05 22:05] LABS: Glucose, Whole Blood 158 mg/dL (60-115)
[2023-08-05] MEDS: Potassium Phosphate/NS 15 MMOL/250 ML PLAST..BAG 62.5 MMOL IV (22:21)
--- NOTE | 2023-08-05 22:46 | PC.NURSE ---
Addendum entered by Quentin Amaya RN 08/05/23 22:59: Insulin gtt was at 6 U/hr and titrated to 4U/hr, well tolerated, titrated per specific DISK OPERATOR instructions. At this time checking POCs Q2 hours. Original Note: Assumed care at 19:00. Patient alert, drowsy and fatigued but easily arouses to voice. Interacts appropriately in [place]. Educated and communicated with in [place], declined interpretter. Patient reports nausea improved since zofran. Patient reported 6/10 pain epigastric area, reported well tolerated recently had dilaudid in ED, declined further intervention and then pain reduced shortly thereafter. Patient able to voice needs, reports wanting sleep at this time. Voids in urinal, ok to not have conklin catheter at this time per DISK OPERATOR. Patient getting 20 MeQ IV KCL and then 15 mmol of IV potassium phosphate. Ice chips ok per DISK OPERATOR, otherwise NPO.
[2023-08-06] VITALS (24 sets, daily range): BP systolic 127–158; BP diastolic 78–101; PULSE 82–99; RESP 13–20; TEMP 36.3–37.3; O2SAT 95–99; BMI 26.3
[2023-08-06 00:29] LABS: VBG Base Excess -0.3 mmol/L; VBG HCO3 21 mmol/L (22-26); VBG pCO2 27 mmHg; VBG pH 7.49 (7.32-7.43); VBG pO2 72 mmHg
[2023-08-06] MEDS: ondansetron HCL 4 MG/2 ML VIAL IVPUSH (00:30)
[2023-08-06 00:31] LABS: Venous Blood Gas Refer to POC result
[2023-08-06 00:50] LABS: Anion Gap 22 (12-20); Blood Urea Nitrogen 8 mg/dL (9-16); Calcium 8.7 mg/dL (8.4-10.2); Carbon Dioxide 12 mmol/L (22-29); Chloride 100 mmol/L (96-108); Creatinine Clr Calc Pharmacy 132.9; Estimated Glomerular Filt Rate > 60; Glucose Random 170 mg/dL (60-115); Potassium 3.5 mmol/L (3.3-5.1); Sodium 130 mmol/L (135-145)
[2023-08-06 00:52] LABS: Triglycerides 5408 mg/dL (<150)
[2023-08-06 01:28] LABS: Phosphorus 1.6 mg/dL (2.7-4.5)
[2023-08-06] MEDS: Heparin Sodium,Porcine 5,000 UNIT/ML VIAL 5000 UNIT SUBCUT ×3 (02:02→17:17)
[2023-08-06] MEDS: Potassium Phosphate/NS 15 MMOL/250 ML PLAST..BAG 62.5 MMOL IV ×3 (02:03→23:00)
[2023-08-06 02:08] LABS: Glucose, Whole Blood 185 mg/dL (60-115)
[2023-08-06 04:01] LABS: Glucose, Whole Blood 185 mg/dL (60-115)
[2023-08-06] MEDS: Dextrose 5 % and 0.9 % NaCl 1,000 ML 100 ML IVCONT (04:24)
[2023-08-06] MEDS: Insulin Regular/NS 100 UNIT/100 ML PLAST..BAG 6 UNIT IVCONT (04:36)
[2023-08-06 04:39] LABS: VBG Base Excess 0.5 mmol/L; VBG HCO3 22 mmol/L (22-26); VBG pCO2 29 mmHg; VBG pH 7.49 (7.32-7.43); VBG pO2 84 mmHg
[2023-08-06 04:40] LABS: Venous Blood Gas Refer to POC result
[2023-08-06 05:19] LABS: Alanine Aminotransferase 21 U/L (0-40); Albumin Level 3.5 g/dL (3.5-5.0); Alkaline Phosphatase 73 U/L (39-117); Anion Gap 18 (12-20); Aspartate Amino Transferase 20 U/L (5-37); Bilirubin Total 0.3 mg/dL (0.0-1.0); Blood Urea Nitrogen 7 mg/dL (9-16); Calcium 8.4 mg/dL (8.4-10.2); Carbon Dioxide 16 mmol/L (22-29); Chloride 102 mmol/L (96-108); Creatinine Clr Calc Pharmacy 134.9; Estimated Glomerular Filt Rate > 60; Glucose Random 156 mg/dL (60-115); Magnesium 1.6 mg/dL (1.6-2.6); Phosphorus 2.2 mg/dL (2.7-4.5); Potassium 3.7 mmol/L (3.3-5.1); Sodium 132 mmol/L (135-145); Total Protein 7.8 g/dL (6.5-8.0); Triglycerides 4098 mg/dL (<150)
[2023-08-06 05:24] LABS: Basophils Percent Auto 0.2 % (0-2); Eosinophils Percent Auto 0.1 % (0-4); Hematocrit 37.2 % (42.0-52.0); Imm Gran Abs Auto 0.05 X10*3/uL (0.00-0.03); Imm Gran Pct Auto 0.4 % (0.0-0.4); Lymphocytes Percent Auto 7.1 % (20-40); MANUAL DIFF FLAG SCAN; Mean Corpuscular Volume 88.4 fL (80.0-98.0); Mean Platelet Volume 10.1 fL (9.4-12.4); Monocytes Absolute Auto 1.1 X10*3/uL (0.1-1.2); Monocytes Percent Auto 7.9 % (2-11); Neutrophils Absolute Auto 11.6 x10*3/uL (2.0-8.3); Neutrophils Percent Auto 84.3 % (45-73); Platelet Count 191 X10*3/uL (160-400); Red Blood Count 4.21 X10*6/uL (4.60-5.80); Red Cell Distribution Width 13.5 % (11.0-16.0); SCAN SMEAR FLAG 1; White Blood Count 13.8 X10*3/uL (4.8-10.8)
[2023-08-06 05:30] LABS: Lipase 449 U/L (8-78)
[2023-08-06 05:34] LABS: Hemoglobin 12.5 g/dl (14.0-18.0)
[2023-08-06 05:35] LABS: Mean Corpuscular HGB Conc 33.5 g/dl (31.0-36.0); Mean Corpuscular Hemoglobin 29.6 pg (27.0-33.0)
[2023-08-06 05:37] LABS: SLIDE REVIEW VERIFIED
[2023-08-06 06:02] LABS: Glucose, Whole Blood 130 mg/dL (60-115)
--- NOTE | 2023-08-06 07:07 | P.CNGI_ITS ---
History of Present Illness Data of Consult Service Date: 08/06/23 Requesting physician: Jack Kim Primary Care Provider: Caprice Purdy MD HPI Reason for consult: acute recurrent pancreatitis 42 YM with HTN, pre-diabetes, pancreatitis related to ETOH abuse and hypertriglyceridemia seen at [facility] on 08/05/23 with abdominal pain associated with nausea and vomiting. He developed epigastric abdominal pain yesterday with n/v x 2. No fevers, no diarrhea. He feels as if he has pancreatitis again. Pt describes the pain as constant, dull pain without radiation and gets worse with eating Pt reports last drink was 2 days ago - he had 3 beers he does not drink like he used to he does not feel shaky in the AM. This is his third admission for acute pancreatitis secondary to hypertriglyceridemia. Pt was last hospitalized in April - ICU stay on insulin gtt. He was noted to have TGs in 1999s in 2019 and this time TGs were elevated >5000. Pt's sister reports non-adherence with meds for at least 2-3 months prior to his last admission. Pt previously used to be under care of Endocrinology for triglyceride management. (has an appt with Dr River on 08/18/23) Currently taking atorvastatin, fenofibrate and gemfibrozil and denies non- compliance. Also reports drinking etOH heavily in the past and quitted drinking a few weeks ago. Pt admits to wt loss of 30 lbs over the past several months (baseline wt was 180 lbs). 08/05/[address] SCAN SHOWED: mprovement in peripancreatic fluid and stranding compared with 05/05/2023. Predominantly homogeneous pancreatic enhancement with relative hypoenhancement in the distal body/tail of the pancreas. A small residual fluid collection adjacent to the tail of the pancreas measures 2.0 x 1.5 x 2.9 cm. New focal hypodensity in the head of the pancreas measures 10 x 10 x 9 mm. No dilatation of the main pancreatic duct. This may be further evaluated with MRI/MRCP. Review of Systems 2 Review of Systems: Constitutional : No Weight loss, No Fever, No Chills ENT/Mouth : No sore throat, No Rhinorrhea Eyes: No Swelling, No Redness Cardiovascular : No Chest Pain, No SOB, NoEdema Respiratory : No Cough, No Sputum, No Wheezing Gastrointestinal : Positive Nausea, Positive Vomiting, no Diarrhea, positive abdominal Pain, No Hematochezia, No Melena Genitourinary : No Dysuria, No Urinary Frequency, No Hematuria, No Urgency Musculoskeletal : No joint pain, No Myalgias, No Joint Swelling Skin : No Skin Lesions, No rash Neuro : No Weakness, No Numbness, No Dizziness, No Headache Psych : No Anxiety/Panic, No Depression All other systems reviewed and are negative. [facility] Past Medical History Medical History Uncontrolled type 2 diabetes mellitus with hyperglycemia, with long-term current use of insulin Alcohol use History of pancreatitis History of traumatic brain injury Obesity (BMI 30-39.9) Prediabetes Hypertriglyceridemia HTN (hypertension) Family History Family History Father No problems noted. Mother No problems noted. 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) Alcohol intake: current Alcohol intake frequency: holidays/special occasions only Alcohol type: beer Comment: camera removed, pt cooperative Patient Tobacco Use Status: Never used Tobacco Tobacco use type: Cigarette Cigarettes Per Day: 3 e-Cigarette/Vaping Use: Never Used Second Hand Smoke Exposure: Yes Advance Directives Date on File: 01/10/24 service: No Current occupational status: unemployed and disabled Current occupation: and disability Meds Allergies Allergy/AdvReac Type Severity Reaction Status Date / Time No Known Allergies Allergy Verified 04/11/24 09:30 Active Medications: Current Medications Dextrose (Dextrose 50 % 25 Gm/50 Ml Syringe) 25 gm IVPUSH Q30M PRN PRN Reason: BG < 70 Heparin Sodium (Porcine) (Heparin Sodium,Porcine 5,000 Unit/Ml Vial) 5,000 unit SUBCUT Q8H [facility] Last Admin: 08/06/23 02:02 Dose: 5,000 unit Hydromorphone HCl (Hydromorphone Hcl 1 Mg/Ml Syringe) 0.5 mg IVPUSH Q3H PRN; Protocol PRN Reason: Pain, Severe (Pain Scale 7-10) Last Admin: 08/05/23 17:59 Dose: 0.5 mg Insulin Human Regular (Myxredlin) 100 unit in 100 mls @ 5 mls/hr IVCONT .Q20H [facility]; Protocol Last Titration: 08/06/23 06:01 Dose: 5 unit/hr, 5 mls/hr Dextrose/Sodium Chloride (D5ns) 1,000 mls @ 150 mls/hr IVCONT .Q6H40M [facility] Last Admin: 08/06/23 04:24 Dose: 100 mls/hr Potassium Phosphate (Kphos) 15 mmol in 250 mls @ 62.5 mls/hr IV Q4H [facility] Stop: 08/06/23 09:44 Last Admin: 08/06/23 06:02 Dose: 62.5 mls/hr Influenza Virus Vaccine (Flu Vacc [id number](6mos Up)/Pf 0.5 Ml Syringe) 0.5 ml IM .ONCE ONE Stop: 08/06/23 10:31 Ondansetron HCl (Ondansetron Hcl 4 Mg/2 Ml Vial) 4 mg IVPUSH Q4H PRN PRN Reason: Nausea Last Admin: 08/06/23 00:30 Dose: 4 mg Home Medications ?Medication ?Instructions ?Recorded ?Confirmed ?Last Taken ?Type fluoxetine 20 mg capsule 20 mg PO DAILY 08/06/20 04/11/24 04/10/24 History blood sugar diagnostic #10 ea 02/04/21 01/05/24 Unknown History folic acid 1 mg tablet 1 mg PO DAILY 04/28/23 04/11/24 04/10/24 History lisinopril 20 mg tablet 20 mg PO DAILY 04/28/23 04/11/24 04/10/24 History thiamine HCl (vitamin B1) 100 mg 100 mg PO DAILY 04/28/23 04/11/24 04/10/24 History tablet icosapent ethyl 1 gram capsule 2 g PO BID 06/02/23 04/11/24 04/10/24 History (Vascepa) amlodipine 5 mg tablet 5 mg PO DAILY 01/05/24 04/11/24 04/10/24 History atorvastatin 80 mg tablet 80 mg PO BEDTIME 01/05/24 04/11/24 04/10/24 History insulin glargine 100 unit/mL (3 40 unit subcut BEDTIME 02/07/24 04/11/24 04/10/24 History mL) subcutaneous pen (Lantus Solostar U-100 Insulin) Physical Exam 2 Vital Signs: Vital Signs: Last Vital Signs Temp 97.4 F 08/06/23 05:00 Pulse 94 08/06/23 07:00 Resp 15 08/06/23 07:00 BP 144/89 H 08/06/23 07:00 Pulse Ox 97 08/06/23 07:00 O2 Del Method Room Air 08/06/23 07:00 BMI result Body Mass Index 26.3 Const: General: no acute distress Nutritional Appearance: overweight O rientation/consciousness: patient oriented x3 Limitations: no limitations HEENT: Head: Yes normal to inspection Ears: hearing grossly normal bilaterally Mouth: Normal oral and palatal mucosa present Eyes: Sclerae: sclerae normal Pupils: Equal, round and reactive pupils present Neck: Neck: Yes normal visual inspection Chest: Chest palpation & inspection: normal inspection of the chest Resp: Effort & Inspection: normal respiratory effort Auscultation: clear to auscultation bilaterally Cardio: Palpation: normal PMI Rate: regular rate Rhythm: regular rhythm Heart sounds: S1 normal heart sound present, S2 normal heart sound present and no murmurs GI: Palpation (GI): Soft to palpation, nontender and No hepatosplenomegaly present Auscultation: normal bowel sounds Rectal Exam - Male: Yes deferred Skin: General skin exam: no rashes or lesions noted Neuro: General: patient oriented x3, gait normal and moves all extremities Cranial nerves: Yes Equal, round and reactive pupils present Psych: Appearance: grossly normal Mental Status: mental status grossly normal Results Labs 08/11/23 06:07 08/11/23 06:07 Labs: Short CBC 08/05/23 08/06/23 Range/Units 13:15 04:25 WBC 9.4 13.8 H (4.8-10.8) X10*3/uL Hgb 13.3 L 12.5 L (14.0-18.0) g/dl Hct 39.7 L 37.2 L (42.0-52.0) % Plt Count 207 191 (160-400) X10*3/uL BMP 08/05/23 08/05/23 08/05/23 13:15 19:58 19:58 Sodium 123 L Cancelled 133 L Potassium 3.4 D Cancelled Chloride 90 L Carbon Dioxide 25 BUN 13 Creatinine 0.84 Calcium 10.0 D 08/05/23 08/05/23 08/05/23 19:58 19:58 19:58 Sodium Potassium 3.1 L Chloride Cancelled 102 Carbon Dioxide Cancelled 12 L BUN Cancelled Creatinine Calcium 08/05/23 08/05/23 08/05/23 19:58 19:58 19:58 Sodium Potassium Chloride Carbon Dioxide BUN 10 Creatinine Cancelled 0.64 Calcium Cancelled 8.9 D 08/06/23 08/06/23 00:16 04:25 Sodium 130 L 132 L Potassium 3.5 3.7 Chloride 100 102 Carbon Dioxide 12 L 16 L BUN 8 L 7 L Creatinine 0.67 0.66 Calcium 8.7 8.4 Liver Function 08/05/23 08/06/23 Range/Units 13:15 04:25 Total Bilirubin 0.6 0.3 (0.0-1.0) mg/dL AST 18 20 (5-37) U/L ALT 32 21 (0-40) U/L Alkaline Phosphatase 112 73 (39-117) U/L Albumin 4.1 3.5 (3.5-5.0) g/dL Assessment and Plan (1) Pancreatitis: Qualifiers: Acute pancreatitis complication: no infection or necrosis Chronicity: a cute Pancreatitis type: other Qualified Code(s): K85.80 - Other acute pancreatitis without necrosis or infection Status: Resolved (2) Abdominal pain: Qualifiers: Abdominal location: epigastric Qualified Code(s): R10.13 - Epigastric pain Status: Resolved Plan 42 YM with HTN, pre-diabetes, pancreatitis related to ETOH abuse and hypertriglyceridemia admitted to [facility] on 08/05/23 with acute recurrent pancreatitis after drinking ETOH. This is his third admission for acute pancreatitis secondary to hypertriglyceridemia. Pt was last hospitalized in April - ICU stay on insulin gtt. He was noted to have TGs in 2000s in 2019 and this time TGs were elevated >5000. Pt admits to wt loss of 30 lbs over the past several months (baseline wt was [address] scan showed changes of acute pancreatitis with peripancreatic fluid collection and a new hypodensity n the HOP - likely a fluid collection. Pt notes improvement in abdomiinal pain today RECOMMENDATIONS: 1. Agree with supportive treatment with IVF, pain medications, correction of electrolyte imbalance and IV insulin infusion 2. MRI with MRCP for further evaluation of the pancreas once patient is more stable HOSPITAL COURSE: The patient was admitted tot [facility] for treatment of acute pancreatitis secondary to hypertriglyceridemia. Treated with IV insulin drip and IVF with good response over the course of hospital stay. Diet advanced slowly with good tolerance over the course of hospital stay. Started on Gemfibrozil as TG went down from >5000 to almost 1000 with good tolerance. To be followed as outpatient with PCP for further evaluation of causes of elevated TG. Hold Amlodipine and follow BP readings for 1 week and restart if remains elevated Start Gemfibrozel and discontinue Atorvastatin Time Spent With Patient Time: Total time managing care of this patient today ____ minutes. Procedures Date of Service Date of Service: 04/23/24
[2023-08-06] MEDS: KCl 20 mEq in 5% Dex/0.9% Sod 20 MEQ/1,000 ML IV.SOLN 125 MEQ IVCONT ×3 (07:31→23:31)
[2023-08-06 07:58] LABS: Glucose, Whole Blood 112 mg/dL (60-115)
[2023-08-06] MEDS: Insulin Regular/NS 100 UNIT/100 ML PLAST..BAG IVCONT (08:24)
--- NOTE | 2023-08-06 09:16 | P.PNCC_ITS ---
Subjective Subjective Date of Service: 08/06/23 Interval History: 42-year-old with history of early type 2 diabetes but clearly has some form of familial hypertriglyceridemia and as result this is his 2nd episode of acute pancreatitis this time around uncomplicated he did not have SIRS and his initial lactate elevation with anion gap positive metabolic acidosis resolved very promptly on IV insulin and aggressive fluid replacement with that and the appropriate significant drop in his triglycerides from greater than 5700 to the current level of 2800 his symptoms have relaxed as well no nausea no abdominal discomfort he is tolerating clear liquids and rigor no advanced that diet and lipase is coming down all clinical signs of active pancreatitis dramatically subsiding as a result of the therapy as expected we have had some progressive degree of hypokalemia but more profoundly hypophosphatemia all that now being replaced Critical Care Time (minutes): 35 Physical Exam 2 Vital Signs: Vital Signs: Last Vital Signs Temp 98.4 F 08/06/23 08:00 Pulse 91 08/06/23 09:00 Resp 14 08/06/23 09:00 BP 156/96 H 08/06/23 09:00 Pulse Ox 97 08/06/23 09:00 O2 Del Method Room Air 08/06/23 09:00 BMI result Body Mass Index 26.3 awake and alert with good cognitive function excellent vital signs not requiring any support abdomen is much softer no organomegaly nontender lungs are clear no adventitious sounds cardiac exam by bedside echo normal LV and RV function Objective Data Labs 08/06/23 04:25 08/06/23 09:00 Labs: Laboratory Results - last 24 hr 08/05/23 08/05/23 08/05/23 13:15 13:37 14:09 WBC 9.4 RBC 4.55 L Hgb 13.3 L Hct 39.7 L MCV 87.3 MCH 29.2 MCHC 33.5 RDW 12.4 Plt Count 207 MPV 9.1 L Immature Gran % (Auto) 0.5 H Neut % (Auto) 78.0 H Lymph % (Auto) 14.2 L [place] % (Auto) 6.4 Eos % (Auto) 0.6 Baso % (Auto) 0.3 Lymph # (Auto) 1.3 [place] # (Auto) 0.6 Eos # (Auto) 0.1 Baso # (Auto) 0.0 Abs Immat Gran (auto) 0.05 H Absolute Neuts (auto) 7.3 Absolute Nucleated RBC 0.000 Nucleated RBC % (auto) 0.0 Smear Tech's Comments VBG pH VBG pCO2 VBG pO2 VBG HCO3 VBG O2 Saturation VBG Base Excess Sodium 123 L Potassium 3.4 D Chloride 90 L Carbon Dioxide 25 Anion Gap 11 L BUN 13 Creatinine 0.84 Estim Creat Clear Calc 95.9 Estimated GFR > 60 POC Glucose 298 H Random Glucose 321 H Calcium 10.0 D Phosphorus Magnesium 1.8 Total Bilirubin 0.6 AST 18 ALT 32 Alkaline Phosphatase 112 Lactate Dehydrogenase 192 Total Protein 10.0 H Albumin 4.1 Triglycerides > 5680 H Lipase 939 H Urine Osmolality Ur Random Sodium Urine Opiates Screen Urine Fentanyl Screen Ur Barbiturates Screen Ur Phencyclidine Scrn Ur Amphetamines Screen U Benzodiazepines Scrn Urine Cocaine Screen U Marijuana (THC) Screen Ethyl Alcohol < 10 08/05/23 08/05/23 08/05/23 15:44 15:58 16:58 WBC RBC Hgb Hct MCV MCH MCHC RDW Plt Count MPV Immature Gran % (Auto) Neut % (Auto) Lymph % (Auto) [place] % (Auto) Eos % (Auto) Baso % (Auto) Lymph # (Auto) [place] # (Auto) Eos # (Auto) Baso # (Auto) Abs Immat Gran (auto) Absolute Neuts (auto) Absolute Nucleated RBC Nucleated RBC % (auto) Smear Tech's Comments VBG pH VBG pCO2 VBG pO2 VBG HCO3 VBG O2 Saturation VBG Base Excess Sodium Potassium Chloride Carbon Dioxide Anion Gap BUN Creatinine Estim Creat Clear Calc Estimated GFR POC Glucose 249 H 231 H Random Glucose Calcium Phosphorus Magnesium Total Bilirubin AST ALT Alkaline Phosphatase Lactate Dehydrogenase Total Protein Albumin Triglycerides Lipase Urine Osmolality 934 Ur Random Sodium 45.0 Urine Opiates Screen Not Detected Urine Fentanyl Screen Not Detected Ur Barbiturates Screen Not Detected Ur Phencyclidine Scrn Not Detected Ur Amphetamines Screen Not Detected U Benzodiazepines Scrn Not Detected Urine Cocaine Screen Not Detected U Marijuana (THC) Screen Not Detected Ethyl Alcohol 08/05/23 08/05/23 08/05/23 17:59 18:59 19:58 WBC RBC Hgb Hct MCV MCH MCHC RDW Plt Count MPV Immature Gran % (Auto) Neut % (Auto) Lymph % (Auto) [place] % (Auto) Eos % (Auto) Baso % (Auto) Lymph # (Auto) [place] # (Auto) Eos # (Auto) Baso # (Auto) Abs Immat Gran (auto) Absolute Neuts (auto) Absolute Nucleated RBC Nucleated RBC % (auto) Smear Tech's Comments VBG pH VBG pCO2 VBG pO2 VBG HCO3 VBG O2 Saturation VBG Base Excess Sodium Cancelled Potassium Chloride Carbon Dioxide Anion Gap BUN Creatinine Estim Creat Clear Calc Estimated GFR POC Glucose 205 H 159 H Random Glucose Calcium Phosphorus Magnesium Total Bilirubin AST ALT Alkaline Phosphatase Lactate Dehydrogenase Total Protein Albumin Triglycerides Lipase Urine Osmolality Ur Random Sodium Urine Opiates Screen Urine Fentanyl Screen Ur Barbiturates Screen Ur Phencyclidine Scrn Ur Amphetamines Screen U Benzodiazepines Scrn Urine Cocaine Screen U Marijuana (THC) Screen Ethyl Alcohol 08/05/23 08/05/23 08/05/23 19:58 19:58 19:58 WBC RBC Hgb Hct MCV MCH MCHC RDW Plt Count MPV Immature Gran % (Auto) Neut % (Auto) Lymph % (Auto) [place] % (Auto) Eos % (Auto) Baso % (Auto) Lymph # (Auto) [place] # (Auto) Eos # (Auto) Baso # (Auto) Abs Immat Gran (auto) Absolute Neuts (auto) Absolute Nucleated RBC Nucleated RBC % (auto) Smear Tech's Comments VBG pH VBG pCO2 VBG pO2 VBG HCO3 VBG O2 Saturation VBG Base Excess Sodium 133 L Potassium Cancelled 3.1 L Chloride Cancelled 102 Carbon Dioxide Cancelled Anion Gap BUN Creatinine Estim Creat Clear Calc Estimated GFR POC Glucose Random Glucose Calcium Phosphorus Magnesium Total Bilirubin AST ALT Alkaline Phosphatase Lactate Dehydrogenase Total Protein Albumin Triglycerides Lipase Urine Osmolality Ur Random Sodium Urine Opiates Screen Urine Fentanyl Screen Ur Barbiturates Screen Ur Phencyclidine Scrn Ur Amphetamines Screen U Benzodiazepines Scrn Urine Cocaine Screen U Marijuana (THC) Screen Ethyl Alcohol 08/05/23 08/05/23 08/05/23 19:58 19:58 19:58 WBC RBC Hgb Hct MCV MCH MCHC RDW Plt Count MPV Immature Gran % (Auto) Neut % (Auto) Lymph % (Auto) [place] % (Auto) Eos % (Auto) Baso % (Auto) Lymph # (Auto) [place] # (Auto) Eos # (Auto) Baso # (Auto) Abs Immat Gran (auto) Absolute Neuts (auto) Absolute Nucleated RBC Nucleated RBC % (auto) Smear Tech's Comments VBG pH VBG pCO2 VBG pO2 VBG HCO3 VBG O2 Saturation VBG Base Excess Sodium Potassium Chloride Carbon Dioxide 12 L Anion Gap Cancelled 22 H BUN Cancelled 10 Creatinine Cancelled Estim Creat Clear Calc Estimated GFR POC Glucose Random Glucose Calcium Phosphorus Magnesium Total Bilirubin AST ALT Alkaline Phosphatase Lactate Dehydrogenase Total Protein Albumin Triglycerides Lipase Urine Osmolality Ur Random Sodium Urine Opiates Screen Urine Fentanyl Screen Ur Barbiturates Screen Ur Phencyclidine Scrn Ur Amphetamines Screen U Benzodiazepines Scrn Urine Cocaine Screen U Marijuana (THC) Screen Ethyl Alcohol 08/05/23 08/05/23 08/05/23 19:58 19:58 19:58 WBC RBC Hgb Hct MCV MCH MCHC RDW Plt Count MPV Immature Gran % (Auto) Neut % (Auto) Lymph % (Auto) [place] % (Auto) Eos % (Auto) Baso % (Auto) Lymph # (Auto) [place] # (Auto) Eos # (Auto) Baso # (Auto) Abs Immat Gran (auto) Absolute Neuts (auto) Absolute Nucleated RBC Nucleated RBC % (auto) Smear Tech's Comments VBG pH VBG pCO2 VBG pO2 VBG HCO3 VBG O2 Saturation VBG Base Excess Sodium Potassium Chloride Carbon Dioxide Anion Gap BUN Creatinine 0.64 Estim Creat Clear Calc Cancelled 139.1 Estimated GFR Cancelled > 60 POC Glucose Random Glucose Cancelled Calcium Phosphorus Magnesium Total Bilirubin AST ALT Alkaline Phosphatase Lactate Dehydrogenase Total Protein Albumin Triglycerides Lipase Urine Osmolality Ur Random Sodium Urine Opiates Screen Urine Fentanyl Screen Ur Barbiturates Screen Ur Phencyclidine Scrn Ur Amphetamines Screen U Benzodiazepines Scrn Urine Cocaine Screen U Marijuana (THC) Screen Ethyl Alcohol 08/05/23 08/05/23 08/05/23 19:58 19:58 19:58 WBC RBC Hgb Hct MCV MCH MCHC RDW Plt Count MPV Immature Gran % (Auto) Neut % (Auto) Lymph % (Auto) [place] % (Auto) Eos % (Auto) Baso % (Auto) Lymph # (Auto) [place] # (Auto) Eos # (Auto) Baso # (Auto) Abs Immat Gran (auto) Absolute Neuts (auto) Absolute Nucleated RBC Nucleated RBC % (auto) Smear Tech's Comments VBG pH VBG pCO2 VBG pO2 VBG HCO3 VBG O2 Saturation VBG Base Excess Sodium Potassium Chloride Carbon Dioxide Anion Gap BUN Creatinine Estim Creat Clear Calc Estimated GFR POC Glucose Random Glucose 155 H Calcium Cancelled 8.9 D Phosphorus Cancelled 1.3 L Magnesium Cancelled Total Bilirubin AST ALT Alkaline Phosphatase Lactate Dehydrogenase Total Protein Albumin Triglycerides Lipase Urine Osmolality Ur Random Sodium Urine Opiates Screen Urine Fentanyl Screen Ur Barbiturates Screen Ur Phencyclidine Scrn Ur Amphetamines Screen U Benzodiazepines Scrn Urine Cocaine Screen U Marijuana (THC) Screen Ethyl Alcohol 08/05/23 08/05/23 08/05/23 19:58 20:00 20:07 WBC RBC Hgb Hct MCV MCH MCHC RDW Plt Count MPV Immature Gran % (Auto) Neut % (Auto) Lymph % (Auto) [place] % (Auto) Eos % (Auto) Baso % (Auto) Lymph # (Auto) [place] # (Auto) Eos # (Auto) Baso # (Auto) Abs Immat Gran (auto) Absolute Neuts (auto) Absolute Nucleated RBC Nucleated RBC % (auto) Smear Tech's Comments VBG pH 7.44 H VBG pCO2 30 VBG pO2 68 VBG HCO3 21 L VBG O2 Saturation 91.0 VBG Base Excess -1.8 Sodium Potassium Chloride Carbon Dioxide Anion Gap BUN Creatinine Estim Creat Clear Calc Estimated GFR POC Glucose 164 H Random Glucose Calcium Phosphorus Magnesium 1.8 Total Bilirubin AST ALT Alkaline Phosphatase Lactate Dehydrogenase Total Protein Albumin Triglycerides > 5680 H Lipase Urine Osmolality Ur Random Sodium Urine Opiates Screen Urine Fentanyl Screen Ur Barbiturates Screen Ur Phencyclidine Scrn Ur Amphetamines Screen U Benzodiazepines Scrn Urine Cocaine Screen U Marijuana (THC) Screen Ethyl Alcohol 08/05/23 08/05/23 08/06/23 21:01 22:02 00:16 WBC RBC Hgb Hct MCV MCH MCHC RDW Plt Count MPV Immature Gran % (Auto) Neut % (Auto) Lymph % (Auto) [place] % (Auto) Eos % (Auto) Baso % (Auto) Lymph # (Auto) [place] # (Auto) Eos # (Auto) Baso # (Auto) Abs Immat Gran (auto) Absolute Neuts (auto) Absolute Nucleated RBC Nucleated RBC % (auto) Smear Tech's Comments VBG pH VBG pCO2 VBG pO2 VBG HCO3 VBG O2 Saturation VBG Base Excess Sodium 130 L Potassium 3.5 Chloride 100 Carbon Dioxide 12 L Anion Gap 22 H BUN 8 L Creatinine 0.67 Estim Creat Clear Calc 132.9 Estimated GFR > 60 POC Glucose 169 H 158 H Random Glucose 170 H Calcium 8.7 Phosphorus 1.6 L Magnesium Total Bilirubin AST ALT Alkaline Phosphatase Lactate Dehydrogenase Total Protein Albumin Triglycerides 5408 H Lipase Urine Osmolality Ur Random Sodium Urine Opiates Screen Urine Fentanyl Screen Ur Barbiturates Screen Ur Phencyclidine Scrn Ur Amphetamines Screen U Benzodiazepines Scrn Urine Cocaine Screen U Marijuana (THC) Screen Ethyl Alcohol 08/06/23 08/06/23 08/06/23 00:22 02:04 03:57 WBC RBC Hgb Hct MCV MCH MCHC RDW Plt Count MPV Immature Gran % (Auto) Neut % (Auto) Lymph % (Auto) [place] % (Auto) Eos % (Auto) Baso % (Auto) Lymph # (Auto) [place] # (Auto) Eos # (Auto) Baso # (Auto) Abs Immat Gran (auto) Absolute Neuts (auto) Absolute Nucleated RBC Nucleated RBC % (auto) Smear Tech's Comments VBG pH 7.49 H VBG pCO2 27 VBG pO2 72 VBG HCO3 21 L VBG O2 Saturation 93.0 VBG Base Excess -0.3 Sodium Potassium Chloride Carbon Dioxide Anion Gap BUN Creatinine Estim Creat Clear Calc Estimated GFR POC Glucose 185 H 185 H Random Glucose Calcium Phosphorus Magnesium Total Bilirubin AST ALT Alkaline Phosphatase Lactate Dehydrogenase Total Protein Albumin Triglycerides Lipase Urine Osmolality Ur Random Sodium Urine Opiates Screen Urine Fentanyl Screen Ur Barbiturates Screen Ur Phencyclidine Scrn Ur Amphetamines Screen U Benzodiazepines Scrn Urine Cocaine Screen U Marijuana (THC) Screen Ethyl Alcohol 08/06/23 08/06/23 08/06/23 04:25 04:32 05:57 WBC 13.8 H RBC 4.21 L Hgb 12.5 L Hct 37.2 L MCV 88.4 MCH 29.6 MCHC 33.5 RDW 13.5 Plt Count 191 MPV 10.1 Immature Gran % (Auto) 0.4 Neut % (Auto) 84.3 H Lymph % (Auto) 7.1 L [place] % (Auto) 7.9 Eos % (Auto) 0.1 Baso % (Auto) 0.2 Lymph # (Auto) 1.0 L [place] # (Auto) 1.1 Eos # (Auto) 0.0 Baso # (Auto) 0.0 Abs Immat Gran (auto) 0.05 H Absolute Neuts (auto) 11.6 H Absolute Nucleated RBC 0.000 Nucleated RBC % (auto) 0.0 Smear Tech's Comments VERIFIED VBG pH 7.49 H VBG pCO2 29 VBG pO2 84 VBG HCO3 22 VBG O2 Saturation 96.0 VBG Base Excess 0.5 Sodium 132 L Potassium 3.7 Chloride 102 Carbon Dioxide 16 L Anion Gap 18 BUN 7 L Creatinine 0.66 Estim Creat Clear Calc 134.9 Estimated GFR > 60 POC Glucose 130 H Random Glucose 156 H Calcium 8.4 Phosphorus 2.2 L Magnesium 1.6 Total Bilirubin 0.3 AST 20 ALT 21 Alkaline Phosphatase 73 Lactate Dehydrogenase Total Protein 7.8 Albumin 3.5 Triglycerides 4098 H Lipase 449 H Urine Osmolality Ur Random Sodium Urine Opiates Screen Urine Fentanyl Screen Ur Barbiturates Screen Ur Phencyclidine Scrn Ur Amphetamines Screen U Benzodiazepines Scrn Urine Cocaine Screen U Marijuana (THC) Screen Ethyl Alcohol 08/06/23 07:55 WBC RBC Hgb Hct MCV MCH MCHC RDW Plt Count MPV Immature Gran % (Auto) Neut % (Auto) Lymph % (Auto) [place] % (Auto) Eos % (Auto) Baso % (Auto) Lymph # (Auto) [place] # (Auto) Eos # (Auto) Baso # (Auto) Abs Immat Gran (auto) Absolute Neuts (auto) Absolute Nucleated RBC Nucleated RBC % (auto) Smear Tech's Comments VBG pH VBG pCO2 VBG pO2 VBG HCO3 VBG O2 Saturation VBG Base Excess Sodium Potassium Chloride Carbon Dioxide Anion Gap BUN Creatinine Estim Creat Clear Calc Estimated GFR POC Glucose 112 Random Glucose Calcium Phosphorus Magnesium Total Bilirubin AST ALT Alkaline Phosphatase Lactate Dehydrogenase Total Protein Albumin Triglycerides Lipase Urine Osmolality Ur Random Sodium Urine Opiates Screen Urine Fentanyl Screen Ur Barbiturates Screen Ur Phencyclidine Scrn Ur Amphetamines Screen U Benzodiazepines Scrn Urine Cocaine Screen U Marijuana (THC) Screen Ethyl Alcohol Progress Note: A&P Assessment and plan (1) Pancreatitis: Status: Acute (2) Abdominal pain: Status: Acute (3) Alcohol use: Status: Acute (4) History of pancreatitis: Status: Acute (5) Hypercalcemia: Status: Acute (6) Leukocytosis: Status: Acute (7) Hypertriglyceridemia: Status: Acute (8) Obesity (BMI 30-39.9): Status: Acute (9) Prediabetes: Status: Acute (10) HTN (hypertension): Status: Acute Plan plan is to continue the combination of fluid and IV insulin drip until were down to 500 or less on his total triglycerides at which time we can transfer safely to the floor but we are gradually Quality Stroke Does the patient have a stroke diagnosis?: No VTE Prior VTE?: No VTE Risk Level:: Medical - moderate - high VTE Device Contraindication: N/A - Device Ordered VTE Drug Contraindication: N/A - Med Ordered
[2023-08-06 09:35] LABS: Anion Gap 15 (12-20); Blood Urea Nitrogen 6 mg/dL (9-16); Carbon Dioxide 19 mmol/L (22-29); Chloride 103 mmol/L (96-108); Creatinine Clr Calc Pharmacy 127.9; Estimated Glomerular Filt Rate > 60; Glucose Random 87 mg/dL (60-115); Potassium 3.7 mmol/L (3.3-5.1); Sodium 133 mmol/L (135-145)
[2023-08-06 09:39] LABS: Triglycerides 2881 mg/dL (<150)
[2023-08-06 10:06] LABS: Glucose, Whole Blood 87 mg/dL (60-115)
--- NOTE | 2023-08-06 11:32 | MHC.CM.PN ---
This technical writer met with patient for CM assessment. Pt from home- ambulates independently in the home. Has a [employer] WORK[employer]- number of hours per week unknown. Reports completing a HCP, copy requested. Open to [facility] @ d/c. P[employer]TY WORKER will provide transport @ d/c.
[2023-08-06 12:01] LABS: Glucose, Whole Blood 210 mg/dL (60-115)
--- NOTE | 2023-08-06 13:12 | MHC.CLN ---
RE: CONSULT FOR WT LOSS CURRENT WT 74.8KG (08/05/23) PREVIOUS WT HX 79.1KG (10/05/22) PT WITH 5% NONSIGNIFICANT WT LOSS X 1 YEAR; BMI 26.3 PT WITH POOR PO R/T PANCREATITIS C/L DIET WILL ADD ENSURE CLEAR TO INCREASE KCALS MONITOR PO INTAKE
[2023-08-06 14:06] LABS: Glucose, Whole Blood 243 mg/dL (60-115)
[2023-08-06 16:08] LABS: Glucose, Whole Blood 130 mg/dL (60-115)
[2023-08-06 16:38] LABS: VBG Base Excess 5.5 mmol/L; VBG HCO3 26 mmol/L (22-26); VBG pCO2 28 mmHg; VBG pH 7.57 (7.32-7.43); VBG pO2 95 mmHg
[2023-08-06 16:55] LABS: MANUAL DIFF FLAG NO
[2023-08-06 16:56] LABS: Venous Blood Gas Refer to POC result
[2023-08-06 16:57] LABS: Basophils Percent Auto 0.2 % (0-2); Eosinophils Absolute Auto 0.1 X10*3/uL (0.0-0.4); Eosinophils Percent Auto 0.7 % (0-4); Hematocrit 35.2 % (42.0-52.0); Hemoglobin 13.2 g/dl (14.0-18.0); Imm Gran Abs Auto 0.05 X10*3/uL (0.00-0.03); Imm Gran Pct Auto 0.4 % (0.0-0.4); Lymphocytes Absolute Auto 1.4 X10*3/uL (1.2-4.9); Lymphocytes Percent Auto 10.8 % (20-40); Mean Corpuscular HGB Conc 37.5 g/dl (31.0-36.0); Mean Corpuscular Hemoglobin 32.4 pg (27.0-33.0); Mean Corpuscular Volume 86.3 fL (80.0-98.0); Mean Platelet Volume 9.3 fL (9.4-12.4); Monocytes Absolute Auto 1.2 X10*3/uL (0.1-1.2); Monocytes Percent Auto 9.4 % (2-11); Neutrophils Absolute Auto 10.2 x10*3/uL (2.0-8.3); Neutrophils Percent Auto 78.5 % (45-73); Platelet Count 177 X10*3/uL (160-400); Red Blood Count 4.08 X10*6/uL (4.60-5.80); Red Cell Distribution Width 12.7 % (11.0-16.0); White Blood Count 12.9 X10*3/uL (4.8-10.8)
[2023-08-06 17:12] LABS: Anion Gap 15 (12-20); Blood Urea Nitrogen 3 mg/dL (9-16); Calcium 8.9 mg/dL (8.4-10.2); Carbon Dioxide 20 mmol/L (22-29); Chloride 102 mmol/L (96-108); Creatinine Clr Calc Pharmacy 138.9; Estimated Glomerular Filt Rate > 60; Glucose Random 118 mg/dL (60-115); Magnesium 1.6 mg/dL (1.6-2.6); Phosphorus 1.6 mg/dL (2.7-4.5); Sodium 134 mmol/L (135-145)
[2023-08-06] MEDS: Potassium Chloride ER 20 MEQ TAB.ER.PRT PO ×2 (17:53→19:34)
[2023-08-06] MEDS: Magnesium Sulfate/D5W 1 GM/100 ML PIGGYBACK IV (17:53)
[2023-08-06 18:04] LABS: Glucose, Whole Blood 221 mg/dL (60-115)
[2023-08-06 20:12] LABS: Glucose, Whole Blood 180 mg/dL (60-115)
[2023-08-06 22:12] LABS: Glucose, Whole Blood 139 mg/dL (60-115)
[2023-08-06 22:28] LABS: Anion Gap 13 (12-20); Blood Urea Nitrogen 3 mg/dL (9-16); Carbon Dioxide 21 mmol/L (22-29); Chloride 103 mmol/L (96-108); Creatinine Clr Calc Pharmacy 125.9; Estimated Glomerular Filt Rate > 60; Glucose Random 147 mg/dL (60-115); Magnesium 1.9 mg/dL (1.6-2.6); Phosphorus 1.8 mg/dL (2.7-4.5); Potassium 3.1 mmol/L (3.3-5.1); Sodium 134 mmol/L (135-145)
[2023-08-06 22:30] LABS: Triglycerides 1957 mg/dL (<150)
[2023-08-07] VITALS (24 sets, daily range): BP systolic 107–148; BP diastolic 63–101; PULSE 81–105; RESP 12–23; TEMP 36–36.3; O2SAT 95–100; BMI 26.1
[2023-08-07 00:03] LABS: Glucose, Whole Blood 142 mg/dL (60-115)
[2023-08-07 02:05] LABS: Glucose, Whole Blood 173 mg/dL (60-115)
[2023-08-07] MEDS: Insulin Regular/NS 100 UNIT/100 ML PLAST..BAG IVCONT (03:04)
[2023-08-07] MEDS: Heparin Sodium,Porcine 5,000 UNIT/ML VIAL 5000 UNIT SUBCUT ×3 (03:05→18:06)
[2023-08-07] MEDS: Potassium Phosphate/NS 15 MMOL/250 ML PLAST..BAG 62.5 MMOL IV (03:05)
[2023-08-07 04:12] LABS: Glucose, Whole Blood 153 mg/dL (60-115)
[2023-08-07 04:35] LABS: VBG Base Excess 2.2 mmol/L; VBG HCO3 26 mmol/L (22-26); VBG pCO2 37 mmHg; VBG pH 7.44 (7.32-7.43); VBG pO2 48 mmHg
[2023-08-07 04:39] LABS: Venous Blood Gas Refer to POC result
[2023-08-07 04:58] LABS: MANUAL DIFF FLAG NO
[2023-08-07 05:03] LABS: Basophils Percent Auto 0.4 % (0-2); Eosinophils Absolute Auto 0.3 X10*3/uL (0.0-0.4); Eosinophils Percent Auto 2.9 % (0-4); Hematocrit 38.3 % (42.0-52.0); Hemoglobin 13.6 g/dl (14.0-18.0); Imm Gran Abs Auto 0.04 X10*3/uL (0.00-0.03); Imm Gran Pct Auto 0.4 % (0.0-0.4); Lymphocytes Absolute Auto 1.9 X10*3/uL (1.2-4.9); Lymphocytes Percent Auto 20.1 % (20-40); Mean Corpuscular HGB Conc 35.5 g/dl (31.0-36.0); Mean Corpuscular Hemoglobin 32.3 pg (27.0-33.0); Mean Platelet Volume 9.4 fL (9.4-12.4); Monocytes Absolute Auto 0.9 X10*3/uL (0.1-1.2); Monocytes Percent Auto 8.9 % (2-11); Neutrophils Absolute Auto 6.5 x10*3/uL (2.0-8.3); Neutrophils Percent Auto 67.3 % (45-73); Platelet Count 150 X10*3/uL (160-400); Red Blood Count 4.21 X10*6/uL (4.60-5.80); Red Cell Distribution Width 13.1 % (11.0-16.0); White Blood Count 9.6 X10*3/uL (4.8-10.8)
[2023-08-07 05:21] LABS: Alanine Aminotransferase 24 U/L (0-40); Albumin Level 3.4 g/dL (3.5-5.0); Alkaline Phosphatase 68 U/L (39-117); Anion Gap 15 (12-20); Aspartate Amino Transferase 10 U/L (5-37); Bilirubin Total 0.3 mg/dL (0.0-1.0); Blood Urea Nitrogen < 3 mg/dL (9-16); Carbon Dioxide 20 mmol/L (22-29); Chloride 105 mmol/L (96-108); Creatinine Clr Calc Pharmacy 127.9; Estimated Glomerular Filt Rate > 60; Glucose Random 125 mg/dL (60-115); Phosphorus 2.9 mg/dL (2.7-4.5); Potassium 3.4 mmol/L (3.3-5.1); Sodium 137 mmol/L (135-145); Total Protein 6.6 g/dL (6.5-8.0)
[2023-08-07 05:32] LABS: Triglycerides 1754 mg/dL (<150)
[2023-08-07 06:07] LABS: Glucose, Whole Blood 84 mg/dL (60-115)
[2023-08-07 06:15] LABS: Lipase 124 U/L (8-78)
[2023-08-07 07:16] LABS: Glucose, Whole Blood 180 mg/dL (60-115)
[2023-08-07] MEDS: KCl 20 mEq in 5% Dex/0.9% Sod 20 MEQ/1,000 ML IV.SOLN 125 MEQ IVCONT ×3 (07:36→23:53)
[2023-08-07] MEDS: Potassium Chloride/H20 10 MEQ/100 ML PIGGYBACK 100 MEQ IV ×2 (07:41→09:05)
[2023-08-07 08:09] LABS: Glucose, Whole Blood 202 mg/dL (60-115)
[2023-08-07 09:16] LABS: Glucose, Whole Blood 278 mg/dL (60-115)
--- NOTE | 2023-08-07 09:23 | PM.CCPN ---
Subjective Subjective Date of Service: 08/07/23 Interval History: 42-year-old male now apparently a type 2 diabetic but has a in all probability of familial form of hypertriglyceridemia complicated by recurrent episodes of acute pancreatitis this was an uncomplicated episode he had complete resolution of a very mild lactic acidosis never had a clinical SIRS and issue and and on IV nitroglycerin aggressive fluid replacement he is having very rapid improvement in his hypertriglyceridemia down from a peak of greater than 5680 to now about 1700 and as already had complete resolution of all abdominal complaints and were simply waiting for his triglyceride level to approach about 500 and then begin restoring his combined hypolipidemia medications he might need outpatient referral probably via his supervisor cytology to a metabolic specialty clinic Critical Care Time (minutes): 30 Physical Exam Vital Signs: Vital Signs: Last Vital Signs Temp 96.8 F 08/07/23 02:00 Pulse 90 08/07/23 08:00 Resp 17 08/07/23 08:00 BP 140/101 H 08/07/23 08:00 Pulse Ox 98 08/07/23 08:00 O2 Del Method Room Air 08/07/23 08:00 BMI result Body Mass Index 26.1 vital signs are excellent and he has got great cognitive function bedside echo with class 1 LV and RV systolic function abdomen soft no organomegaly lungs clear Objective Data Labs 08/07/23 04:26 08/07/23 04:26 Labs: Laboratory Results - last 24 hr 08/06/23 08/06/23 08/06/23 09:00 10:02 11:57 WBC RBC Hgb Hct MCV MCH MCHC RDW Plt Count MPV Immature Gran % (Auto) Neut % (Auto) Lymph % (Auto) [place] % (Auto) Eos % (Auto) Baso % (Auto) Lymph # (Auto) [place] # (Auto) Eos # (Auto) Baso # (Auto) Abs Immat Gran (auto) Absolute Neuts (auto) Absolute Nucleated RBC Nucleated RBC % (auto) VBG pH VBG pCO2 VBG pO2 VBG HCO3 VBG O2 Saturation VBG Base Excess Sodium 133 L Potassium 3.7 Chloride 103 Carbon Dioxide 19 L Anion Gap 15 BUN 6 L Creatinine 0.63 Estim Creat Clear Calc 127.9 Estimated GFR > 60 POC Glucose 87 210 H Random Glucose 87 Calcium 9.0 D Phosphorus Magnesium Total Bilirubin AST ALT Alkaline Phosphatase Total Protein Albumin Triglycerides 2881 H Lipase 10/08/06/23 08/06/23 14:02 16:04 16:32 WBC 12.9 H RBC 4.08 L Hgb 13.2 L Hct 35.2 L MCV 86.3 MCH 32.4 MCHC 37.5 H RDW 12.7 Plt Count 177 MPV 9.3 L Immature Gran % (Auto) 0.4 Neut % (Auto) 78.5 H Lymph % (Auto) 10.8 L [place] % (Auto) 9.4 Eos % (Auto) 0.7 Baso % (Auto) 0.2 Lymph # (Auto) 1.4 [place] # (Auto) 1.2 Eos # (Auto) 0.1 Baso # (Auto) 0.0 Abs Immat Gran (auto) 0.05 H Absolute Neuts (auto) 10.2 H Absolute Nucleated RBC 0.000 Nucleated RBC % (auto) 0.0 VBG pH 7.57 H VBG pCO2 28 VBG pO2 95 VBG HCO3 26 VBG O2 Saturation 98.0 VBG Base Excess 5.5 Sodium 134 L Potassium 3.0 L Chloride 102 Carbon Dioxide 20 L Anion Gap 15 BUN 3 L Creatinine 0.58 Estim Creat Clear Calc 138.9 Estimated GFR > 60 POC Glucose 243 H 130 H Random Glucose 118 H Calcium 8.9 Phosphorus 1.6 L Magnesium 1.6 Total Bilirubin AST ALT Alkaline Phosphatase Total Protein Albumin Triglycerides Lipase 08/06/23 08/06/23 08/06/23 17:56 20:08 22:06 WBC RBC Hgb Hct MCV MCH MCHC RDW Plt Count MPV Immature Gran % (Auto) Neut % (Auto) Lymph % (Auto) [place] % (Auto) Eos % (Auto) Baso % (Auto) Lymph # (Auto) [place] # (Auto) Eos # (Auto) Baso # (Auto) Abs Immat Gran (auto) Absolute Neuts (auto) Absolute Nucleated RBC Nucleated RBC % (auto) VBG pH VBG pCO2 VBG pO2 VBG HCO3 VBG O2 Saturation VBG Base Excess Sodium 134 L Potassium 3.1 L Chloride 103 Carbon Dioxide 21 L Anion Gap 13 BUN 3 L Creatinine 0.64 Estim Creat Clear Calc 125.9 Estimated GFR > 60 POC Glucose 221 H 180 H Random Glucose 147 H Calcium 9.0 Phosphorus 1.8 L Magnesium 1.9 Total Bilirubin AST ALT Alkaline Phosphatase Total Protein Albumin Triglycerides 1957 H Lipase 08/06/23 08/06/23 08/07/23 22:09 23:59 02:01 WBC RBC Hgb Hct MCV MCH MCHC RDW Plt Count MPV Immature Gran % (Auto) Neut % (Auto) Lymph % (Auto) [place] % (Auto) Eos % (Auto) Baso % (Auto) Lymph # (Auto) [place] # (Auto) Eos # (Auto) Baso # (Auto) Abs Immat Gran (auto) Absolute Neuts (auto) Absolute Nucleated RBC Nucleated RBC % (auto) VBG pH VBG pCO2 VBG pO2 VBG HCO3 VBG O2 Saturation VBG Base Excess Sodium Potassium Chloride Carbon Dioxide Anion Gap BUN Creatinine Estim Creat Clear Calc Estimated GFR POC Glucose 139 H 142 H 173 H Random Glucose Calcium Phosphorus Magnesium Total Bilirubin AST ALT Alkaline Phosphatase Total Protein Albumin Triglycerides Lipase 08/07/23 08/07/23 08/07/23 04:07 04:26 04:29 WBC 9.6 RBC 4.21 L Hgb 13.6 L Hct 38.3 L MCV 91.0 MCH 32.3 MCHC 35.5 RDW 13.1 Plt Count 150 L MPV 9.4 Immature Gran % (Auto) 0.4 Neut % (Auto) 67.3 Lymph % (Auto) 20.1 [place] % (Auto) 8.9 Eos % (Auto) 2.9 Baso % (Auto) 0.4 Lymph # (Auto) 1.9 [place] # (Auto) 0.9 Eos # (Auto) 0.3 Baso # (Auto) 0.0 Abs Immat Gran (auto) 0.04 H Absolute Neuts (auto) 6.5 Absolute Nucleated RBC 0.000 Nucleated RBC % (auto) 0.0 VBG pH 7.44 H VBG pCO2 37 VBG pO2 48 VBG HCO3 26 VBG O2 Saturation 80.0 VBG Base Excess 2.2 Sodium 137 Potassium 3.4 Chloride 105 Carbon Dioxide 20 L Anion Gap 15 BUN < 3 L Creatinine 0.63 Estim Creat Clear Calc 127.9 Estimated GFR > 60 POC Glucose 153 H Random Glucose 125 H Calcium 9.0 Phosphorus 2.9 Magnesium 2.0 Total Bilirubin 0.3 AST 10 ALT 24 Alkaline Phosphatase 68 Total Protein 6.6 Albumin 3.4 L Triglycerides 1754 H Lipase 124 H 08/07/23 08/07/23 08/07/23 06:04 07:12 08:05 WBC RBC Hgb Hct MCV MCH MCHC RDW Plt Count MPV Immature Gran % (Auto) Neut % (Auto) Lymph % (Auto) [place] % (Auto) Eos % (Auto) Baso % (Auto) Lymph # (Auto) [place] # (Auto) Eos # (Auto) Baso # (Auto) Abs Immat Gran (auto) Absolute Neuts (auto) Absolute Nucleated RBC Nucleated RBC % (auto) VBG pH VBG pCO2 VBG pO2 VBG HCO3 VBG O2 Saturation VBG Base Excess Sodium Potassium Chloride Carbon Dioxide Anion Gap BUN Creatinine Estim Creat Clear Calc Estimated GFR POC Glucose 84 180 H 202 H Random Glucose Calcium Phosphorus Magnesium Total Bilirubin AST ALT Alkaline Phosphatase Total Protein Albumin Triglycerides Lipase 08/07/23 09:11 WBC RBC Hgb Hct MCV MCH MCHC RDW Plt Count MPV Immature Gran % (Auto) Neut % (Auto) Lymph % (Auto) [place] % (Auto) Eos % (Auto) Baso % (Auto) Lymph # (Auto) [place] # (Auto) Eos # (Auto) Baso # (Auto) Abs Immat Gran (auto) Absolute Neuts (auto) Absolute Nucleated RBC Nucleated RBC % (auto) VBG pH VBG pCO2 VBG pO2 VBG HCO3 VBG O2 Saturation VBG Base Excess Sodium Potassium Chloride Carbon Dioxide Anion Gap BUN Creatinine Estim Creat Clear Calc Estimated GFR POC Glucose 278 H Random Glucose Calcium Phosphorus Magnesium Total Bilirubin AST ALT Alkaline Phosphatase Total Protein Albumin Triglycerides Lipase Progress Note: A&P Assessment and plan (1) Pancreatitis: Status: Acute (2) Abdominal pain: Status: Acute (3) Alcohol use: Status: Acute (4) History of pancreatitis: Status: Acute (5) Hypercalcemia: Status: Acute (6) Leukocytosis: Status: Acute (7) Hypertriglyceridemia: Status: Acute (8) Obesity (BMI 30-39.9): Status: Acute (9) Prediabetes: Status: Acute (10) HTN (hypertension): Status: Acute Plan so the plan continued volume replacement while we graduate his very well tolerated diet as well as IV insulin until triglycerides come down to 500 or less and then reintroduce his oral combination therapy including his atorva statin and his fibrate Quality Stroke Does the patient have a stroke diagnosis?: No VTE Prior VTE?: No VTE Risk Level:: Medical - moderate - high VTE Device Contraindication: N/A - Device Ordered VTE Drug Contraindication: N/A - Med Ordered
[2023-08-07 10:12] LABS: Glucose, Whole Blood 188 mg/dL (60-115)
[2023-08-07 11:20] LABS: Glucose, Whole Blood 161 mg/dL (60-115)
[2023-08-07 12:11] LABS: Glucose, Whole Blood 266 mg/dL (60-115)
[2023-08-07 13:12] LABS: Glucose, Whole Blood 185 mg/dL (60-115)
[2023-08-07 14:10] LABS: Glucose, Whole Blood 129 mg/dL (60-115)
[2023-08-07 15:04] LABS: Glucose, Whole Blood 170 mg/dL (60-115)
[2023-08-07 16:05] LABS: Glucose, Whole Blood 82 mg/dL (60-115)
[2023-08-07 17:07] LABS: Glucose, Whole Blood 174 mg/dL (60-115)
[2023-08-07 18:12] LABS: Glucose, Whole Blood 205 mg/dL (60-115)
[2023-08-07 19:07] LABS: Glucose, Whole Blood 182 mg/dL (60-115)
[2023-08-07 20:46] LABS: Anion Gap 16 (12-20); Blood Urea Nitrogen 3 mg/dL (9-16); Calcium 9.7 mg/dL (8.4-10.2); Carbon Dioxide 23 mmol/L (22-29); Chloride 100 mmol/L (96-108); Creatinine Clr Calc Pharmacy 107.4; Estimated Glomerular Filt Rate > 60; Glucose Random 267 mg/dL (60-115); Sodium 135 mmol/L (135-145)
[2023-08-07 20:54] LABS: Triglycerides 1487 mg/dL (<150)
[2023-08-07 21:07] LABS: Glucose, Whole Blood 323 mg/dL (60-115)
[2023-08-07 21:26] LABS: Phosphorus 2.5 mg/dL (2.7-4.5)
[2023-08-07 22:06] LABS: Glucose, Whole Blood 265 mg/dL (60-115)
[2023-08-07 23:07] LABS: Glucose, Whole Blood 177 mg/dL (60-115)
[2023-08-07] MEDS: Insulin Regular/NS 100 UNIT/100 ML PLAST..BAG 7 UNIT IVCONT (23:53)
[2023-08-08] VITALS (24 sets, daily range): BP systolic 114–147; BP diastolic 78–100; PULSE 81–102; RESP 12–20; TEMP 36–36.2; O2SAT 94–100; BMI 26.6
[2023-08-08 00:04] LABS: Glucose, Whole Blood 147 mg/dL (60-115)
[2023-08-08 01:07] LABS: Glucose, Whole Blood 112 mg/dL (60-115)
[2023-08-08] MEDS: Heparin Sodium,Porcine 5,000 UNIT/ML VIAL 5000 UNIT SUBCUT ×3 (02:15→18:12)
[2023-08-08 02:20] LABS: Glucose, Whole Blood 88 mg/dL (60-115)
[2023-08-08 03:08] LABS: Glucose, Whole Blood 81 mg/dL (60-115)
[2023-08-08 04:06] LABS: Glucose, Whole Blood 85 mg/dL (60-115)
[2023-08-08 04:41] LABS: MANUAL DIFF FLAG NO
[2023-08-08 04:42] LABS: VBG Base Excess 1.8 mmol/L; VBG HCO3 25 mmol/L (22-26); VBG pCO2 36 mmHg; VBG pH 7.45 (7.32-7.43); VBG pO2 62 mmHg
[2023-08-08 04:44] LABS: Basophils Percent Auto 0.3 % (0-2); Eosinophils Absolute Auto 0.3 X10*3/uL (0.0-0.4); Eosinophils Percent Auto 4.3 % (0-4); Hematocrit 37.6 % (42.0-52.0); Hemoglobin 13.2 g/dl (14.0-18.0); Imm Gran Abs Auto 0.03 X10*3/uL (0.00-0.03); Imm Gran Pct Auto 0.5 % (0.0-0.4); Mean Corpuscular HGB Conc 35.1 g/dl (31.0-36.0); Mean Corpuscular Hemoglobin 32.1 pg (27.0-33.0); Mean Corpuscular Volume 91.5 fL (80.0-98.0); Mean Platelet Volume 9.4 fL (9.4-12.4); Monocytes Absolute Auto 0.6 X10*3/uL (0.1-1.2); Monocytes Percent Auto 9.3 % (2-11); Neutrophils Absolute Auto 3.6 x10*3/uL (2.0-8.3); Neutrophils Percent Auto 54.6 % (45-73); Platelet Count 144 X10*3/uL (160-400); Red Blood Count 4.11 X10*6/uL (4.60-5.80); Red Cell Distribution Width 13.2 % (11.0-16.0); White Blood Count 6.6 X10*3/uL (4.8-10.8)
[2023-08-08 04:46] LABS: Venous Blood Gas Refer to POC result
[2023-08-08 04:58] LABS: Albumin Level 3.3 g/dL (3.5-5.0); Anion Gap 15 (12-20); Blood Urea Nitrogen 4 mg/dL (9-16); Calcium 9.4 mg/dL (8.4-10.2); Carbon Dioxide 19 mmol/L (22-29); Chloride 105 mmol/L (96-108); Creatinine Clr Calc Pharmacy 127.9; Estimated Glomerular Filt Rate > 60; Glucose Random 74 mg/dL (60-115); Lipase 89 U/L (8-78); Magnesium 1.9 mg/dL (1.6-2.6); Phosphorus 3.3 mg/dL (2.7-4.5); Potassium 3.4 mmol/L (3.3-5.1); Sodium 136 mmol/L (135-145); Triglycerides 1357 mg/dL (<150)
[2023-08-08 05:06] LABS: Glucose, Whole Blood 75 mg/dL (60-115)
[2023-08-08] MEDS: Potassium Chloride Packet 20 MEQ PACKET 40 MEQ PO (05:27)
[2023-08-08 06:11] LABS: Glucose, Whole Blood 146 mg/dL (60-115)
[2023-08-08 08:11] LABS: Glucose, Whole Blood 371 mg/dL (60-115)
[2023-08-08 09:14] LABS: Glucose, Whole Blood 378 mg/dL (60-115)
[2023-08-08 10:15] LABS: Glucose, Whole Blood 259 mg/dL (60-115)
[2023-08-08] MEDS: KCl 20 mEq in 5% Dex/0.9% Sod 20 MEQ/1,000 ML IV.SOLN 125 MEQ IVCONT ×2 (10:15→18:12)
[2023-08-08 11:25] LABS: Glucose, Whole Blood 137 mg/dL (60-115)
--- NOTE | 2023-08-08 11:52 | P.PNCC_ITS ---
Subjective Subjective Date of Service: 08/08/23 Interval History: 42-year-old male with repeat recurrent pancreatitis this time uncomplicated by any signs of SIRS on the basis of hypertriglyceridemia which again was extreme certainly no greater than 5000 on the IV insulin drip it it promptly started to improve within 24 hours all symptoms were gone were down to approximately 1200 on the triglyceride level and we again need to approach less than 500 if if achievable but this time around as the patient is clearly a type 2 diabetic decides the standard lipid lowering agents which he was on combining statins and fibrates etc. I would wonder whether they be more efficacy in starting him on a insulin regimen both short and long-acting of course a say strict diabetic diet where at least less than 10% of the overall calories are from of from fats and a very low glycemic index carbohydrate recommendation and therefore dietary consult + and insulin regimen to go home on and see whether not he has more efficient triglyceride metabolism that he did under standard lipid-lowering agents Critical Care Time (minutes): 30 Physical Exam 2 Vital Signs: Vital Signs: Last Vital Signs Temp 96.9 F 08/08/23 08:00 Pulse 89 08/08/23 11:00 Resp 18 08/08/23 11:00 BP 132/92 H 08/08/23 11:00 Pulse Ox 96 08/08/23 11:00 O2 Del Method Room Air 08/08/23 11:00 BMI result Body Mass Index 26.6 Exam is is excellent excellent cognitive function and neurologic Bedside echo with class 1 LV and RV function Clear lungs without adventitious sounds Abdomen soft no organomegaly Objective Data Labs 08/08/23 04:26 08/08/23 04:26 Labs: Laboratory Results - last 24 hr 08/07/23 08/07/23 08/07/23 12:07 13:08 14:07 WBC RBC Hgb Hct MCV MCH MCHC RDW Plt Count MPV Immature Gran % (Auto) Neut % (Auto) Lymph % (Auto) [place] % (Auto) Eos % (Auto) Baso % (Auto) Lymph # (Auto) [place] # (Auto) Eos # (Auto) Baso # (Auto) Abs Immat Gran (auto) Absolute Neuts (auto) Absolute Nucleated RBC Nucleated RBC % (auto) Hold Purple Top VBG pH VBG pCO2 VBG pO2 VBG HCO3 VBG O2 Saturation VBG Base Excess Sodium Potassium Chloride Carbon Dioxide Anion Gap BUN Creatinine Estim Creat Clear Calc Estimated GFR POC Glucose 266 H 185 H 129 H Random Glucose Calcium Phosphorus Magnesium Albumin Triglycerides Lipase Hold Yellow Top 08/07/23 08/07/23 08/07/23 15:00 15:58 17:02 WBC RBC Hgb Hct MCV MCH MCHC RDW Plt Count MPV Immature Gran % (Auto) Neut % (Auto) Lymph % (Auto) [place] % (Auto) Eos % (Auto) Baso % (Auto) Lymph # (Auto) [place] # (Auto) Eos # (Auto) Baso # (Auto) Abs Immat Gran (auto) Absolute Neuts (auto) Absolute Nucleated RBC Nucleated RBC % (auto) Hold Purple Top VBG pH VBG pCO2 VBG pO2 VBG HCO3 VBG O2 Saturation VBG Base Excess Sodium Potassium Chloride Carbon Dioxide Anion Gap BUN Creatinine Estim Creat Clear Calc Estimated GFR POC Glucose 170 H 82 174 H Random Glucose Calcium Phosphorus Magnesium Albumin Triglycerides Lipase Hold Yellow Top 08/07/23 08/07/23 08/07/23 18:06 19:01 20:19 WBC RBC Hgb Hct MCV MCH MCHC RDW Plt Count MPV Immature Gran % (Auto) Neut % (Auto) Lymph % (Auto) [place] % (Auto) Eos % (Auto) Baso % (Auto) Lymph # (Auto) [place] # (Auto) Eos # (Auto) Baso # (Auto) Abs Immat Gran (auto) Absolute Neuts (auto) Absolute Nucleated RBC Nucleated RBC % (auto) Hold Purple Top SEE NOTE VBG pH VBG pCO2 VBG pO2 VBG HCO3 VBG O2 Saturation VBG Base Excess Sodium 135 Potassium 4.0 Chloride 100 Carbon Dioxide 23 Anion Gap 16 BUN 3 L Creatinine 0.75 Estim Creat Clear Calc 107.4 Estimated GFR > 60 POC Glucose 205 H 182 H Random Glucose 267 H Calcium 9.7 D Phosphorus 2.5 L Magnesium Albumin Triglycerides 1487 H Lipase Hold Yellow Top See Note 08/07/23 08/07/23 08/07/23 21:04 22:03 23:02 WBC RBC Hgb Hct MCV MCH MCHC RDW Plt Count MPV Immature Gran % (Auto) Neut % (Auto) Lymph % (Auto) [place] % (Auto) Eos % (Auto) Baso % (Auto) Lymph # (Auto) [place] # (Auto) Eos # (Auto) Baso # (Auto) Abs Immat Gran (auto) Absolute Neuts (auto) Absolute Nucleated RBC Nucleated RBC % (auto) Hold Purple Top VBG pH VBG pCO2 VBG pO2 VBG HCO3 VBG O2 Saturation VBG Base Excess Sodium Potassium Chloride Carbon Dioxide Anion Gap BUN Creatinine Estim Creat Clear Calc Estimated GFR POC Glucose 323 H 265 H 177 H Random Glucose Calcium Phosphorus Magnesium Albumin Triglycerides Lipase Hold Yellow Top 08/07/23 08/08/23 08/08/23 23:59 01:02 02:14 WBC RBC Hgb Hct MCV MCH MCHC RDW Plt Count MPV Immature Gran % (Auto) Neut % (Auto) Lymph % (Auto) [place] % (Auto) Eos % (Auto) Baso % (Auto) Lymph # (Auto) [place] # (Auto) Eos # (Auto) Baso # (Auto) Abs Immat Gran (auto) Absolute Neuts (auto) Absolute Nucleated RBC Nucleated RBC % (auto) Hold Purple Top VBG pH VBG pCO2 VBG pO2 VBG HCO3 VBG O2 Saturation VBG Base Excess Sodium Potassium Chloride Carbon Dioxide Anion Gap BUN Creatinine Estim Creat Clear Calc Estimated GFR POC Glucose 147 H 112 88 Random Glucose Calcium Phosphorus Magnesium Albumin Triglycerides Lipase Hold Yellow Top 08/08/23 08/08/23 08/08/23 03:02 04:03 04:26 WBC 6.6 RBC 4.11 L Hgb 13.2 L Hct 37.6 L MCV 91.5 MCH 32.1 MCHC 35.1 RDW 13.2 Plt Count 144 L MPV 9.4 Immature Gran % (Auto) 0.5 H Neut % (Auto) 54.6 Lymph % (Auto) 31.0 [place] % (Auto) 9.3 Eos % (Auto) 4.3 H Baso % (Auto) 0.3 Lymph # (Auto) 2.0 [place] # (Auto) 0.6 Eos # (Auto) 0.3 Baso # (Auto) 0.0 Abs Immat Gran (auto) 0.03 Absolute Neuts (auto) 3.6 Absolute Nucleated RBC 0.000 Nucleated RBC % (auto) 0.0 Hold Purple Top VBG pH VBG pCO2 VBG pO2 VBG HCO3 VBG O2 Saturation VBG Base Excess Sodium 136 Potassium 3.4 Chloride 105 Carbon Dioxide 19 L Anion Gap 15 BUN 4 L Creatinine 0.63 Estim Creat Clear Calc 127.9 Estimated GFR > 60 POC Glucose 81 85 Random Glucose 74 Calcium 9.4 Phosphorus 3.3 Magnesium 1.9 Albumin 3.3 L Triglycerides 1357 H Lipase 89 H Hold Yellow Top 08/08/23 08/08/23 08/08/23 04:34 05:01 06:07 WBC RBC Hgb Hct MCV MCH MCHC RDW Plt Count MPV Immature Gran % (Auto) Neut % (Auto) Lymph % (Auto) [place] % (Auto) Eos % (Auto) Baso % (Auto) Lymph # (Auto) [place] # (Auto) Eos # (Auto) Baso # (Auto) Abs Immat Gran (auto) Absolute Neuts (auto) Absolute Nucleated RBC Nucleated RBC % (auto) Hold Purple Top VBG pH 7.45 H VBG pCO2 36 VBG pO2 62 VBG HCO3 25 VBG O2 Saturation 90.0 VBG Base Excess 1.8 Sodium Potassium Chloride Carbon Dioxide Anion Gap BUN Creatinine Estim Creat Clear Calc Estimated GFR POC Glucose 75 146 H Random Glucose Calcium Phosphorus Magnesium Albumin Triglycerides Lipase Hold Yellow Top 08/08/23 08/08/23 08/08/23 08:05 09:07 10:09 WBC RBC Hgb Hct MCV MCH MCHC RDW Plt Count MPV Immature Gran % (Auto) Neut % (Auto) Lymph % (Auto) [place] % (Auto) Eos % (Auto) Baso % (Auto) Lymph # (Auto) [place] # (Auto) Eos # (Auto) Baso # (Auto) Abs Immat Gran (auto) Absolute Neuts (auto) Absolute Nucleated RBC Nucleated RBC % (auto) Hold Purple Top VBG pH VBG pCO2 VBG pO2 VBG HCO3 VBG O2 Saturation VBG Base Excess Sodium Potassium Chloride Carbon Dioxide Anion Gap BUN Creatinine Estim Creat Clear Calc Estimated GFR POC Glucose 371 H* 378 H* 259 H Random Glucose Calcium Phosphorus Magnesium Albumin Triglycerides Lipase Hold Yellow Top 08/08/23 11:09 WBC RBC Hgb Hct MCV MCH MCHC RDW Plt Count MPV Immature Gran % (Auto) Neut % (Auto) Lymph % (Auto) [place] % (Auto) Eos % (Auto) Baso % (Auto) Lymph # (Auto) [place] # (Auto) Eos # (Auto) Baso # (Auto) Abs Immat Gran (auto) Absolute Neuts (auto) Absolute Nucleated RBC Nucleated RBC % (auto) Hold Purple Top VBG pH VBG pCO2 VBG pO2 VBG HCO3 VBG O2 Saturation VBG Base Excess Sodium Potassium Chloride Carbon Dioxide Anion Gap BUN Creatinine Estim Creat Clear Calc Estimated GFR POC Glucose 137 H Random Glucose Calcium Phosphorus Magnesium Albumin Triglycerides Lipase Hold Yellow Top Progress Note: A&P Assessment and plan (1) Pancreatitis: Status: Acute (2) Abdominal pain: Status: Acute (3) Alcohol use: Status: Acute (4) History of pancreatitis: Status: Acute (5) Hypercalcemia: Status: Acute (6) Leukocytosis: Status: Acute (7) Hypertriglyceridemia: Status: Acute (8) Obesity (BMI 30-39.9): Status: Acute (9) Prediabetes: Status: Acute (10) HTN (hypertension): Status: Acute Plan So the plan when we finished with IV insulin at a triglyceride level of 500 is to switch him over to subcutaneous in meal coverage with Tegan pro as well as long-acting insulin subcutaneously to be continued at home with referral I Emilee thing to and to endocrine possibly subsequent referral to the no at a true metabolic or clinic for consultation but dietary will see him in the morning neuro to provide a diet where for calorie contribution is less than 10% from fats and a low glycemic index in addition elimination of of alcohol because that could have precipitated the the acute hypertriglyceridemia Quality Stroke Does the patient have a stroke diagnosis?: No VTE Prior VTE?: No VTE Risk Level:: Medical - moderate - high VTE Device Contraindication: N/A - Device Ordered VTE Drug Contraindication: N/A - Med Ordered
[2023-08-08 12:19] LABS: Glucose, Whole Blood 340 mg/dL (60-115)
[2023-08-08 13:09] LABS: Glucose, Whole Blood 333 mg/dL (60-115)
[2023-08-08 14:07] LABS: Glucose, Whole Blood 187 mg/dL (60-115)
[2023-08-08 15:08] LABS: Glucose, Whole Blood 124 mg/dL (60-115)
[2023-08-08 16:31] LABS: Glucose, Whole Blood 125 mg/dL (60-115)
[2023-08-08 17:50] LABS: Glucose, Whole Blood 129 mg/dL (60-115)
[2023-08-08 18:12] LABS: Glucose, Whole Blood 139 mg/dL (60-115)
[2023-08-08] MEDS: Insulin Regular/NS 100 UNIT/100 ML PLAST..BAG IVCONT (18:31)
[2023-08-08 19:57] LABS: Glucose, Whole Blood 449 mg/dL (60-115)
[2023-08-08 20:54] LABS: Anion Gap 17 (12-20); Blood Urea Nitrogen 6 mg/dL (9-16); Calcium 9.4 mg/dL (8.4-10.2); Carbon Dioxide 18 mmol/L (22-29); Chloride 99 mmol/L (96-108); Creatinine Clr Calc Pharmacy 84.8; Estimated Glomerular Filt Rate > 60; Glucose Random 493 mg/dL (60-115); Phosphorus 3.8 mg/dL (2.7-4.5); Sodium 130 mmol/L (135-145); Triglycerides 1513 mg/dL (<150)
[2023-08-08 22:03] LABS: Glucose, Whole Blood 301 mg/dL (60-115)
[2023-08-09] VITALS (22 sets, daily range): BP systolic 110–140; BP diastolic 60–96; PULSE 74–107; RESP 12–20; TEMP 36.1–36.6; O2SAT 94–100; BMI 25.7
[2023-08-09] LABS: Glucose, Whole Blood 175 mg/dL (60-115)
[2023-08-09] MEDS: KCl 20 mEq in 5% Dex/0.9% Sod 20 MEQ/1,000 ML IV.SOLN 125 MEQ IVCONT (02:01)
[2023-08-09 02:06] LABS: Glucose, Whole Blood 137 mg/dL (60-115)
[2023-08-09 04:21] LABS: Glucose, Whole Blood 136 mg/dL (60-115)
[2023-08-09 04:30] LABS: VBG HCO3 27 mmol/L (22-26); VBG pCO2 40 mmHg; VBG pH 7.43 (7.32-7.43); VBG pO2 51 mmHg
[2023-08-09 04:37] LABS: Venous Blood Gas Refer to POC result
[2023-08-09 05:00] LABS: Imm Gran Abs Auto 0.03 X10*3/uL (0.00-0.03); Imm Gran Pct Auto 0.5 % (0.0-0.4); PLT CLUMP 1; Red Blood Count 4.25 X10*6/uL (4.60-5.80); SCAN SMEAR FLAG 1
[2023-08-09 05:02] LABS: Basophils Percent Auto 0.3 % (0-2); Eosinophils Absolute Auto 0.2 X10*3/uL (0.0-0.4); Eosinophils Percent Auto 3.5 % (0-4); Hematocrit 38.4 % (42.0-52.0); Hemoglobin 13.2 g/dl (14.0-18.0); Lymphocytes Absolute Auto 1.7 X10*3/uL (1.2-4.9); Lymphocytes Percent Auto 28.8 % (20-40); Mean Corpuscular HGB Conc 34.4 g/dl (31.0-36.0); Mean Corpuscular Hemoglobin 31.1 pg (27.0-33.0); Mean Corpuscular Volume 90.4 fL (80.0-98.0); Mean Platelet Volume 9.5 fL (9.4-12.4); Monocytes Absolute Auto 0.5 X10*3/uL (0.1-1.2); Monocytes Percent Auto 8.3 % (2-11); Neutrophils Absolute Auto 3.5 x10*3/uL (2.0-8.3); Neutrophils Percent Auto 58.6 % (45-73); Red Cell Distribution Width 12.7 % (11.0-16.0)
[2023-08-09 05:08] LABS: MANUAL DIFF FLAG NO; Platelet Count 150 X10*3/uL (160-400); White Blood Count 5.9 X10*3/uL (4.8-10.8)
[2023-08-09 05:20] LABS: Albumin Level 3.3 g/dL (3.5-5.0); Anion Gap 14 (12-20); Blood Urea Nitrogen 7 mg/dL (9-16); Calcium 9.5 mg/dL (8.4-10.2); Carbon Dioxide 21 mmol/L (22-29); Chloride 106 mmol/L (96-108); Creatinine Clr Calc Pharmacy 111.9; Estimated Glomerular Filt Rate > 60; Glucose Random 130 mg/dL (60-115); Lipase 85 U/L (8-78); Magnesium 1.9 mg/dL (1.6-2.6); Phosphorus 3.7 mg/dL (2.7-4.5); Potassium 3.7 mmol/L (3.3-5.1); Sodium 137 mmol/L (135-145); Triglycerides 1232 mg/dL (<150)
[2023-08-09] MEDS: Potassium Chloride Packet 20 MEQ PACKET 40 MEQ PO (05:42)
[2023-08-09 07:26] LABS: Glucose, Whole Blood 89 mg/dL (60-115)
[2023-08-09] MEDS: Dextrose 5 % and Lactated Ring 1,000 ML 125 ML IVCONT ×3 (08:21→23:17)
[2023-08-09 10:07] LABS: Glucose, Whole Blood 356 mg/dL (60-115)
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
[2023-08-09 12:04] LABS: Glucose, Whole Blood 271 mg/dL (60-115)
[2023-08-09 15:45] LABS: Glucose, Whole Blood 203 mg/dL (60-115)
[2023-08-09] MEDS: Insulin Regular/NS 100 UNIT/100 ML PLAST..BAG IVCONT (15:46)
[2023-08-09] MEDS: gemfibroziL 600 MG TABLET PO (15:46)
[2023-08-09] MEDS: Heparin Sodium,Porcine 5,000 UNIT/ML VIAL 5000 UNIT SUBCUT ×2 (15:46→20:27)
[2023-08-09 17:43] LABS: Glucose, Whole Blood 225 mg/dL (60-115)
[2023-08-09 20:17] LABS: Glucose, Whole Blood 176 mg/dL (60-115)
[2023-08-09 20:32] LABS: Anion Gap 16 (12-20); Blood Urea Nitrogen 9 mg/dL (9-16); Calcium 10.2 mg/dL (8.4-10.2); Carbon Dioxide 21 mmol/L (22-29); Chloride 102 mmol/L (96-108); Creatinine Clr Calc Pharmacy 110.3; Estimated Glomerular Filt Rate > 60; Glucose Random 200 mg/dL (60-115); Magnesium 1.7 mg/dL (1.6-2.6); Phosphorus 3.6 mg/dL (2.7-4.5); Potassium 3.8 mmol/L (3.3-5.1); Sodium 135 mmol/L (135-145)
[2023-08-09 21:09] LABS: Triglycerides 976 mg/dL (<150)
[2023-08-09 22:12] LABS: Glucose, Whole Blood 227 mg/dL (60-115)
[2023-08-10] VITALS (18 sets, daily range): BP systolic 97–135; BP diastolic 49–89; PULSE 69–106; RESP 8–114; TEMP 36.1–36.9; O2SAT 91–98; BMI 25.7
[2023-08-10 00:10] LABS: Glucose, Whole Blood 157 mg/dL (60-115)
[2023-08-10 01:55] LABS: Glucose, Whole Blood 137 mg/dL (60-115)
[2023-08-10] MEDS: Heparin Sodium,Porcine 5,000 UNIT/ML VIAL 5000 UNIT SUBCUT ×3 (03:05→16:51)
[2023-08-10 04:08] LABS: Glucose, Whole Blood 142 mg/dL (60-115)
[2023-08-10 04:47] LABS: VBG Base Excess 5.6 mmol/L; VBG HCO3 30 mmol/L (22-26); VBG pCO2 45 mmHg; VBG pH 7.43 (7.32-7.43); VBG pO2 41 mmHg
[2023-08-10 04:48] LABS: MANUAL DIFF FLAG NO; Venous Blood Gas Refer to POC result
[2023-08-10 04:51] LABS: Basophils Percent Auto 0.3 % (0-2); Eosinophils Absolute Auto 0.2 X10*3/uL (0.0-0.4); Eosinophils Percent Auto 2.7 % (0-4); Hematocrit 39.2 % (42.0-52.0); Hemoglobin 13.6 g/dl (14.0-18.0); Imm Gran Abs Auto 0.04 X10*3/uL (0.00-0.03); Imm Gran Pct Auto 0.6 % (0.0-0.4); Lymphocytes Absolute Auto 2.1 X10*3/uL (1.2-4.9); Lymphocytes Percent Auto 31.4 % (20-40); Mean Corpuscular HGB Conc 34.7 g/dl (31.0-36.0); Mean Corpuscular Hemoglobin 30.9 pg (27.0-33.0); Mean Corpuscular Volume 89.1 fL (80.0-98.0); Mean Platelet Volume 8.7 fL (9.4-12.4); Monocytes Absolute Auto 0.7 X10*3/uL (0.1-1.2); Monocytes Percent Auto 10.4 % (2-11); Neutrophils Absolute Auto 3.6 x10*3/uL (2.0-8.3); Neutrophils Percent Auto 54.6 % (45-73); Platelet Count 141 X10*3/uL (160-400); Red Cell Distribution Width 12.5 % (11.0-16.0); White Blood Count 6.6 X10*3/uL (4.8-10.8)
[2023-08-10 05:21] LABS: Alanine Aminotransferase 25 U/L (0-40); Albumin Level 3.5 g/dL (3.5-5.0); Alkaline Phosphatase 66 U/L (39-117); Anion Gap 14 (12-20); Aspartate Amino Transferase 13 U/L (5-37); Bilirubin Total 0.3 mg/dL (0.0-1.0); Blood Urea Nitrogen 7 mg/dL (9-16); Calcium 9.9 mg/dL (8.4-10.2); Carbon Dioxide 22 mmol/L (22-29); Chloride 105 mmol/L (96-108); Creatinine Clr Calc Pharmacy 110.3; Estimated Glomerular Filt Rate > 60; Glucose Random 126 mg/dL (60-115); Magnesium 1.8 mg/dL (1.6-2.6); Phosphorus 3.7 mg/dL (2.7-4.5); Potassium 3.4 mmol/L (3.3-5.1); Sodium 138 mmol/L (135-145); Total Protein 6.6 g/dL (6.5-8.0); Triglycerides 825 mg/dL (<150)
[2023-08-10 07:28] LABS: Glucose, Whole Blood 154 mg/dL (60-115)
[2023-08-10] MEDS: gemfibroziL 600 MG TABLET PO ×2 (08:45→16:51)
[2023-08-10] MEDS: Potassium Chloride Packet 20 MEQ PACKET 40 MEQ PO (08:46)
[2023-08-10 11:25] LABS: PEU-Protein Creat Ratio Rand 0.525 (0.025-0.148); PEU-Rand. Prot/Creat Ratio 525 mg/g creat (25-148); PEU-Random Ur. Gamma Globulin 12 %; PEU-Random Urine A1 Globulin 7 %; PEU-Random Urine A2 Globulin 12 %; PEU-Random Urine Albumin 59 %; PEU-Random Urine Beta Globulin 11 %; PEU-Random Urine Creatinine 61 mg/dL (20-320); PEU-Random Urine Protein 32 mg/dL (5-25)
[2023-08-10 11:40] LABS: Glucose, Whole Blood 286 mg/dL (60-115)
[2023-08-10] MEDS: Insulin Lispro 100 UNIT/ML 3 ML VIAL SUBCUT ×3 (12:08→21:39)
--- NOTE | 2023-08-10 13:31 | PC.NURSE ---
Assumed care at 07:00. Patient alert and oriented, Armenian speaking mostly. Communicated with in Armenian, declined use of publicity writer. Patient denies pain. RA breathing easily. POC was 286 at lunchtime, discussed with MD, may need followup about diabetic status.
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
--- NOTE | 2023-08-10 15:45 | MHC.CM.PN ---
Pt will transfer to medical floor today as Trig's have returned to more normalized values. D/C plan is for a return to home w/family and outpt support.
[2023-08-10 16:15] LABS: Glucose, Whole Blood 275 mg/dL (60-115)
[2023-08-10 20:09] LABS: Glucose, Whole Blood 299 mg/dL (60-115)
[2023-08-11] MEDS: Heparin Sodium,Porcine 5,000 UNIT/ML VIAL 5000 UNIT SUBCUT ×2 (02:33→11:36)
[2023-08-11 03:15] VITALS: BP 106/67; PULSE 80; RESP 20; TEMP 36.2; O2SAT 100
[2023-08-11 05:18] VITALS: BMI 26.3
[2023-08-11 06:56] LABS: MANUAL DIFF FLAG NO
[2023-08-11 07:04] LABS: Basophils Percent Auto 0.5 % (0-2); Eosinophils Absolute Auto 0.1 X10*3/uL (0.0-0.4); Eosinophils Percent Auto 2.1 % (0-4); Hemoglobin 13.6 g/dl (14.0-18.0); Imm Gran Abs Auto 0.04 X10*3/uL (0.00-0.03); Imm Gran Pct Auto 0.6 % (0.0-0.4); Lymphocytes Absolute Auto 1.8 X10*3/uL (1.2-4.9); Lymphocytes Percent Auto 29.5 % (20-40); Mean Corpuscular Hemoglobin 31.5 pg (27.0-33.0); Mean Corpuscular Volume 92.6 fL (80.0-98.0); Mean Platelet Volume 9.7 fL (9.4-12.4); Monocytes Absolute Auto 0.7 X10*3/uL (0.1-1.2); Monocytes Percent Auto 11.6 % (2-11); Neutrophils Absolute Auto 3.5 x10*3/uL (2.0-8.3); Neutrophils Percent Auto 55.7 % (45-73); Platelet Count 157 X10*3/uL (160-400); Red Blood Count 4.32 X10*6/uL (4.60-5.80); Red Cell Distribution Width 12.4 % (11.0-16.0); White Blood Count 6.2 X10*3/uL (4.8-10.8)
[2023-08-11 07:28] LABS: Albumin Level 3.7 g/dL (3.5-5.0); Anion Gap 13 (12-20); Blood Urea Nitrogen 11 mg/dL (9-16); Calcium 10.1 mg/dL (8.4-10.2); Carbon Dioxide 25 mmol/L (22-29); Chloride 101 mmol/L (96-108); Creatinine Clr Calc Pharmacy 83.9; Estimated Glomerular Filt Rate > 60; Glucose Random 321 mg/dL (60-115); Potassium 4.8 mmol/L (3.3-5.1); Sodium 134 mmol/L (135-145); Triglycerides 1150 mg/dL (<150)
[2023-08-11 07:37] VITALS: BP 106/56; PULSE 82; RESP 20; TEMP 36.4; O2SAT 98
[2023-08-11 07:48] LABS: Glucose, Whole Blood 313 mg/dL (60-115)
[2023-08-11] MEDS: gemfibroziL 600 MG TABLET PO (07:53)
[2023-08-11] MEDS: Insulin Lispro 100 UNIT/ML 3 ML VIAL SUBCUT ×3 (07:53→11:35)
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
[2023-08-11 11:27] VITALS: BP 121/67; PULSE 91; RESP 20; TEMP 36.3; O2SAT 97
--- NOTE | 2023-08-11 11:27 | MHC.CM.PN ---
Patient has been medically cleared for dc to home toda,self care. CM met with Patient at bedside to address IMM; original was given to Patient and a copy has been placed on the chart. Patient's INSPECTOR FILTER TIP will transport to home.
[2023-08-11 11:36] LABS: Glucose, Whole Blood > 600 mg/dL (60-115)
[2023-08-11 11:36] LABS: Glucose, Whole Blood 555 mg/dL (60-115)
[2023-08-11] MEDS: Insulin Glargine,Hum.rec.anlog 100 UNIT/ML 10 ML VIAL 6 UNIT SUBCUT (11:36)
[2023-08-13 16:14] LABS: Prot Elec - Albumin 4.8 g/dL (3.8-4.8); Prot Elec - Alpha1 0.1 g/dL (0.2-0.3); Prot Elec - Alpha2 0.5 g/dL (0.5-0.9); Prot Elec - Beta 1 0.2 g/dL (0.4-0.6); Prot Elec - Beta 2 0.2 g/dL (0.2-0.5); Prot Elec - Gamma 0.4 g/dL (0.8-1.7); Prot Elec - Total Protein 6.2 g/dL (6.1-8.1)
== END 2023-08-11 11:49 | disposition home or self-care (01) | DRG 439 ==
LOC: HO.ED 13:29 → HO.EDOVER 17:35 → HO.ICU 17:51 → HO.IMC 08-10 16:51
PROVIDERS: Internal Medicine; Internal Medicine Pulmonary Disease; Nurse Practitioner Family; Physician Assistant; Registered Nurse Community Health; Admitting Provider Internal Medicine Cardiovascular Disease; Emergency Provider Emergency Medicine; PCP Family Medicine; Visit Provider Student in an Organized Health Care Education/Training Program
DX: K85.80 Other acute pancreatitis without necrosis or infection (principal); E87.20 Acidosis, unspecified; E78.1 Pure hyperglyceridemia; E83.52 Hypercalcemia; E87.6 Hypokalemia; E83.39 Other disorders of phosphorus metabolism; F10.10 Alcohol abuse, uncomplicated; E11.9 Type 2 diabetes mellitus without complications; I10 Essential (primary) hypertension; E66.9 Obesity, unspecified; Z68.26 Body mass index [BMI] 26.0-26.9, adult; E86.1 Hypovolemia; Z79.84 Long term (current) use of oral hypoglycemic drugs; Z79.899 Other long term (current) drug therapy; Z87.820 Personal history of traumatic brain injury
CPT/HCPCS: 36415; 74177; 80048; 80053; 80307; 82040; 82570; 82803; 82947; 83615; 83690; 83735; 83935; 84100; 84156; 84165; 84166; 84300; 84478; 85025; 93005; 99285; J1170; J1643; J2405; J3411; J3475; Q9967

== ENCOUNTER → 2023-08-05 17:04 | Outpatient (BNV) | payer OTHER, SELFPAY | PROVIDERS: Admitting Provider Internal Medicine Cardiovascular Disease; Emergency Provider Emergency Medicine; PCP Family Medicine; Visit Provider Student in an Organized Health Care Education/Training Program | DX: K85.80 Other acute pancreatitis without necrosis or infection (principal); E78.1 Pure hyperglyceridemia; Z87.820 Personal history of traumatic brain injury | CPT/HCPCS: 99239 ==

== ENCOUNTER → 2023-08-05 17:04 | Outpatient (BNV) | payer OTHER, SELFPAY | PROVIDERS: Admitting Provider Internal Medicine Cardiovascular Disease; Emergency Provider Emergency Medicine; PCP Family Medicine; Visit Provider Internal Medicine Gastroenterology | DX: K85.80 Other acute pancreatitis without necrosis or infection (principal); R10.13 Epigastric pain | CPT/HCPCS: 99499 ==

== ENCOUNTER → 2023-08-05 17:04 | Outpatient (BNV) | payer OTHER, SELFPAY | PROVIDERS: Admitting Provider Internal Medicine Cardiovascular Disease; Emergency Provider Emergency Medicine; PCP Family Medicine; Visit Provider Internal Medicine Cardiovascular Disease | DX: K85.80 Other acute pancreatitis without necrosis or infection (principal); R10.13 Epigastric pain; Z78.9 Other specified health status; E83.52 Hypercalcemia; Z87.19 Personal history of other diseases of the digestive system; D72.829 Elevated white blood cell count, unspecified; E78.1 Pure hyperglyceridemia; E66.9 Obesity, unspecified; R73.03 Prediabetes; I10 Essential (primary) hypertension | CPT/HCPCS: 99291 ==

== ENCOUNTER → 2023-08-05 17:04 | Outpatient (BNV) | payer OTHER, SELFPAY | PROVIDERS: Admitting Provider Internal Medicine Cardiovascular Disease; Emergency Provider Emergency Medicine; PCP Family Medicine; Visit Provider Internal Medicine Pulmonary Disease | DX: K85.80 Other acute pancreatitis without necrosis or infection (principal); Z87.820 Personal history of traumatic brain injury; E78.1 Pure hyperglyceridemia | CPT/HCPCS: 99232 ==

== ENCOUNTER 2023-08-18 14:33 | Outpatient (AMB) | payer OTHER, SELFPAY ==
[2023-08-18 14:49] VITALS: BP 112/66; PULSE 99; BMI 25.8
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
== END 2023-08-18 15:23 | disposition home or self-care (01) ==
PROVIDERS: PCP Family Medicine; Visit Provider Internal Medicine Endocrinology, Diabetes & Metabolism
DX: E11.65 Type 2 diabetes mellitus with hyperglycemia (principal); Z79.4 Long term (current) use of insulin
CPT/HCPCS: 99214

== ENCOUNTER → 2023-08-18 14:33 | Outpatient (BNVA) | payer OTHER, SELFPAY | PROVIDERS: PCP Family Medicine; Visit Provider Internal Medicine Endocrinology, Diabetes & Metabolism | DX: E78.1 Pure hyperglyceridemia (principal); E11.65 Type 2 diabetes mellitus with hyperglycemia; Z79.4 Long term (current) use of insulin | CPT/HCPCS: 83036; 99212 ==

== ENCOUNTER 2023-09-07 09:45 | Outpatient (AMB) | payer OTHER, SELFPAY ==
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
== END 2023-09-07 10:47 | disposition home or self-care (01) ==
PROVIDERS: PCP Family Medicine; Visit Provider Registered Nurse Diabetes Educator
DX: E11.65 Type 2 diabetes mellitus with hyperglycemia (principal); Z79.4 Long term (current) use of insulin

== ENCOUNTER → 2023-09-07 09:45 | Outpatient (BNVA) | payer OTHER, SELFPAY | PROVIDERS: PCP Family Medicine; Visit Provider Registered Nurse Diabetes Educator | DX: E11.65 Type 2 diabetes mellitus with hyperglycemia (principal); Z79.4 Long term (current) use of insulin | CPT/HCPCS: 99211 ==

== ENCOUNTER 2023-10-25 09:41 | Outpatient (AMB) | payer OTHER, SELFPAY ==
[2023-10-25 09:45] VITALS: BP 112/64; PULSE 85; BMI 27.7
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
[2023-10-25 09:57] LABS: Glucose, Whole Blood 272 mg/dL (60-115)
== END 2023-10-25 10:04 | disposition home or self-care (01) ==
PROVIDERS: PCP Family Medicine; Visit Provider Internal Medicine Endocrinology, Diabetes & Metabolism
DX: E78.1 Pure hyperglyceridemia (principal); E11.65 Type 2 diabetes mellitus with hyperglycemia; Z79.4 Long term (current) use of insulin
CPT/HCPCS: 99214

== ENCOUNTER → 2023-10-25 09:41 | Outpatient (BNVA) | payer OTHER, SELFPAY | PROVIDERS: PCP Family Medicine; Visit Provider Internal Medicine Endocrinology, Diabetes & Metabolism | DX: E78.1 Pure hyperglyceridemia (principal); E11.65 Type 2 diabetes mellitus with hyperglycemia; Z79.4 Long term (current) use of insulin | CPT/HCPCS: 82947; 99212 ==

== ENCOUNTER 2023-11-01 10:27 | Outpatient (AMB) | payer OTHER, SELFPAY ==
--- NOTE | 2023-11-01 11:01 | A.OFFVIS_ITS ---
Intake Intake Visit Reasons: f/u Type 2 DM and hypertriglyceremia Skidder Operator Required: Yes Skidder Operator Language: Trolley Car Operator Name: Maegan [facility] [place] Information Interpreted: non-clinical & clinical Accompanied by: Sister Allergies No Known Allergies Allergy (Verified 08/18/23 14:53) HPI Comprehensive Diabetes Asmnt Most Recent Diabetes Results: Hemoglobin A1c 5.5 % 06/21/19 Microalb/Creat Ratio 32.8 ug/mg cr (<30) H 05/31/23 Cholesterol 126 mg/dL (<200) 05/31/23 HDL Cholesterol 30 mg/dL (>40) L 05/31/23 Triglycerides 1150 mg/dL (<150) H 08/11/23 Creatinine 0.96 mg/dL (0.5-1.4) 08/11/23 Blood Urea Nitrogen 11 mg/dL (9-16) 08/11/23 Sodium 134 mmol/L (135-145) L 08/11/23 Potassium 4.8 mmol/L (3.3-5.1) 08/11/23 Chloride 101 mmol/L (96-108) 08/11/23 Carbon Dioxide 25 mmol/L (22-29) 08/11/23 Calcium 10.1 mg/dL (8.4-10.2) 08/11/23 AST 13 U/L (5-37) 08/10/23 ALT 25 U/L (0-40) 08/10/23 Total Protein 6.6 g/dL (6.5-8.0) 08/10/23 Albumin 3.7 g/dL (3.5-5.0) 08/11/23 [facility] Medical History (Updated 08/19/23 @ 00:02 by Tushar Singh) Uncontrolled type 2 diabetes mellitus with hyperglycemia, with long-term current use of insulin Alcohol use History of pancreatitis History of traumatic brain injury Obesity (BMI 30-39.9) Prediabetes Hypertriglyceridemia HTN (hypertension) Surgical History No pertinent past surgical history Family History Father No problems noted. Mother No problems noted. Social History Household Members: Other Household Members Other:: mother Housing: House Do you presently have visiting nurse or other home services: Yes ([employer] services from) Alcohol intake: current Alcohol intake frequency: holidays/special occasions only Alcohol type: beer Comment: camera removed, pt cooperative Patient Tobacco Use Status: Never used Tobacco Tobacco use type: Cigarette Cigarettes Per Day: 3 e-Cigarette/Vaping Use: Never Used Second Hand Smoke Exposure: Yes service: No Current occupational status: unemployed and disabled Current occupation: and disability Assessment & Plan Assessment & Plan (1) Uncontrolled type 2 diabetes mellitus with hyperglycemia, with long-term current use of insulin: Code(s): E11.65 - Type 2 diabetes mellitus with hyperglycemia; Z79.4 - senior care (current) use of insulin Plan: Learning objectives: The patient was provided with verbal and written education on the following topics as outlined below. Assess patient education level/literacy/barriers Patient questions/concerns, patient overall glucose control has improved slightly average glucose has improved from 296 at visit in [id number] to 247 mg/dL to today's visit Patient reminded to scan glucose sensor every 4-6 hours while awake Patient above target 83% Patient at target 17% Patient below target 0% Patient is currently taking metformin 500 mg daily Lantus 30 units daily Humalog 10 units before meals Patient denies any GI side effects from metformin message will be sent to Dr. River to see if it would be appropriate to increase patient's metformin dose The patient met all learning objectives and was able to verbalize understanding and provide teach back of education topics discussed . The patient was provided with the opportunity to ask questions and all questions were answered. Topics covered in today?s session included: Medications (If applicable) * Name of medication? * Dosing/administration instructions? * Mechanism of action? * Potential side effects? * Potential adverse reaction and appropriate treatment? * Review onset, peak, duration Assess for concerns re: insurance coverage, cost, barriers to compliance Insulin/Injectables (If applicable) * Storage/care of insulin?? * Injection sites? * Site rotation? * Onset, peak, duration * Drawing up insulin? * Injecting insulin/other injectables? * Sharps disposal Continuous blood glucose monitoring (if applicable) Hypoglycemia and Hyperglycemia * Signs and symptoms? * Causes?? * Treatment? * Preventing hypoglycemia? * When to seek medical attention * Blood glucose targets and how you feel when your blood glucose is in and out of your target ranges. * Monitoring and knowing your A1C. * What can make blood glucose go up and down and preventing high and low blood glucose. * Review of blood sugar targets in expected goal range and outside of expected goal range. * Problem solving and preventing hyper/hypoglycemia. * Sick day management of diabetes. * Using blood sugar results in decision making process in managing diabetes. ?Patient was receptive to information provided and participated in the discussion. Asked?appropriate questions and demonstrated good understanding of the topics discussed.? ? Educational Materials: The patient was provided with the following written educational materials: Target Goal handout Smart Goal Assessment:? Patient will keep carbohydrate portion at meals from 45- 60 g Pt met goal more than 25% New Smart Goal: Use rule of 15 to treat hypoglycemia Patient Response to instructions: Comprehension of Instructions: fair Readiness to make changes:? Contemplation How confident they feel about making changes: fair Patient Instructions: Have A1c drawn Follow-up with Diabetes Education nurse in 2 months Coding Level of Care Code Est Pt Level 1 (58800) Diagnoses Uncontrolled type 2 diabetes mellitus with hyperglycemia, with long-term current use of insulin E11.65; Z79.4
== END 2023-11-01 11:02 | disposition home or self-care (01) ==
PROVIDERS: PCP Family Medicine; Visit Provider Registered Nurse Diabetes Educator
DX: E11.65 Type 2 diabetes mellitus with hyperglycemia (principal); Z79.4 Long term (current) use of insulin

== ENCOUNTER → 2023-11-01 10:27 | Outpatient (BNVA) | payer OTHER, SELFPAY | PROVIDERS: PCP Family Medicine; Visit Provider Registered Nurse Diabetes Educator | DX: E11.65 Type 2 diabetes mellitus with hyperglycemia (principal); Z79.4 Long term (current) use of insulin | CPT/HCPCS: 99211 ==

== ENCOUNTER 2023-12-30 10:59 | Outpatient (AMB) | payer OTHER, SELFPAY ==
--- NOTE | 2023-12-30 11:27 | A.OFFVIS_ITS ---
Intake Intake Visit Reasons: T2DM, hypertriglyceremia-confirmed Propagator Required: Yes Propagator Language: Power Tool Repair Technician Name: [place] [facility] [place]ompanied by: Sister Allergies No Known Allergies Allergy (Verified 08/18/23 14:53) HPI Comprehensive Diabetes Asmnt Most Recent Diabetes Results: Hemoglobin A1c 5.5 % 06/21/19 Microalb/Creat Ratio 32.8 ug/mg cr (<30) H 05/31/23 Cholesterol 126 mg/dL (<200) 05/31/23 HDL Cholesterol 30 mg/dL (>40) L 05/31/23 Triglycerides 1150 mg/dL (<150) H 08/11/23 Creatinine 0.96 mg/dL (0.5-1.4) 08/11/23 Blood Urea Nitrogen 11 mg/dL (9-16) 08/11/23 Sodium 134 mmol/L (135-145) L 08/11/23 Potassium 4.8 mmol/L (3.3-5.1) 08/11/23 Chloride 101 mmol/L (96-108) 08/11/23 Carbon Dioxide 25 mmol/L (22-29) 08/11/23 Calcium 10.1 mg/dL (8.4-10.2) 08/11/23 AST 13 U/L (5-37) 08/10/23 ALT 25 U/L (0-40) 08/10/23 Total Protein 6.6 g/dL (6.5-8.0) 08/10/23 Albumin 3.7 g/dL (3.5-5.0) 08/11/23 [facility] Medical History (Updated 08/19/23 @ 00:02 by Tushar Singh) Uncontrolled type 2 diabetes mellitus with hyperglycemia, with long-term current use of insulin Alcohol use History of pancreatitis History of traumatic brain injury Obesity (BMI 30-39.9) Prediabetes Hypertriglyceridemia HTN (hypertension) Surgical History No pertinent past surgical history Family History Father No problems noted. Mother No problems noted. Social History Household Members: Other Household Members Other:: mother Housing: House Do you presently have visiting nurse or other home services: Yes ([employer] services from) Alcohol intake: current Alcohol intake frequency: holidays/special occasions only Alcohol type: beer Comment: camera removed, pt cooperative Patient Tobacco Use Status: Never used Tobacco Tobacco use type: Cigarette Cigarettes Per Day: 3 e-Cigarette/Vaping Use: Never Used Second Hand Smoke Exposure: Yes service: No Current occupational status: unemployed and disabled Current occupation: and disability Assessment & Plan Assessment & Plan (1) Uncontrolled type 2 diabetes mellitus with hyperglycemia, with long-term current use of insulin: Code(s): E11.65 - Type 2 diabetes mellitus with hyperglycemia; Z79.4 - 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 The patient met all learning objectives and was able to verbalize understanding and provide teach back of education topics discussed . The patient was provided with the opportunity to ask questions and all questions were answered. Patient Assessment Assess patient education level/literacy/barriers Patient questions/concerns, patient scanning awe.sme 2 more frequently Average glucose for the past 2 weeks 275 mg/dL Patient is above target 91% Patient at target 9% Patient is a target 0% Patient reports approximately 2 weeks ago she called the emergency room because patient's toenails turned black . After speaking with medical personal, patient's NovoLog was increased to 20 units before meals, and patient's Lantus was increased to 36 units daily. Patient's sister also reports the patient has increase metformin to 500 mg b.i.d. Glucoses are still running well above target Patient's sister reports that he drinks orange juice throughout the day, recommended he reduce fruit juice consumption to help lower average glucose levels. In addition recommended to patient and his sister they increase Lantus to 40 units daily Patient is still overdue for A1c instructed patient and his sister to have A1c drawn before next visit with clinical informatics educator in 1 month Exercise Medical clearance Effect of exercise on blood sugar Start slowly and gradually increase pace/duration over time Goal amount of exercise Checking blood glucose/have a source of carbs with you Medications (If applicable) * Name of medication * Dosing/administration instructions * Mechanism of action * Potential side effects * Potential adverse reaction and appropriate treatment * Review onset, peak, duration Assess for concerns re: insurance coverage, cost, barriers to compliance Insulin/Injectables (If applicable) * Storage/care of insulin * Injection sites * Site rotation * Onset, peak, duration * Drawing up insulin * Injecting insulin/other injectables * Sharps disposal Continuous blood glucose monitoring (if applicable) Hypoglycemia and Hyperglycemia * Signs and symptoms * Causes * Treatment * Preventing hypoglycemia * When to seek medical attention Medical alert bracelet Lifestyle * Work * Travel * Stress management * Problem solving Know your goals * A1C * Blood sugar targets * Blood pressure * Cholesterol/LDL Urine microalbumin Smart Goal Assessment: Patient did not have any episodes of hypoglycemia Pt met goal:Pt All of the time/100%: 75% of the time: 50% of the time: Less than 25% the time: New Goal:? Reduce orange juice consumption during the day, replace with low- carbohydrate fluids Patient Response to instructions: Comprehension of Instructions: poor Readiness to make changes: Contemplation How confident they feel about making changes: Poor Patient Instructions: Incluir actividad diaria regular. ADA recomienda 30 minutos de ejercicio 5 d?as a la semana. P?rdida de peso, hable con el PCP o el cardi?logo antes de comenzar un nuevo plan. Mida el nivel de az?car en la sofi seg?n las indicaciones; Ayuno y comida m?s ted de 2hpp. Observe las tendencias en los resultados. Utilice los resultados y eval?e c?mo los alimentos, la actividad f?igor y los medicamentos afectan los resultados de az?car en la sofi. Lleve el gluc?metro o CGM a la pr?xima visita. Conocer los medicamentos para la diabetes, branham acci?n, los efectos secundarios, la eficacia, la toxicidad, la dosis prescrita, el momento y la frecuencia de administraci?n apropiados, el efecto de las dosis olvidadas y retrasadas y las instrucciones de almacenamiento, viaje y seguridad. T?cnicas de resoluci?n de problemas para el seguimiento de episodios de hipo/hiperglucemia y tratamientos. Reducir los comportamientos de reducci?n de riesgos, dejar de fumar, ex?menes regulares de ojos, pies y dentales. Coding Level of Care Code Est Pt Level 1 (89995) Diagnoses Uncontrolled type 2 diabetes mellitus with hyperglycemia, with long-term current use of insulin E11.65; Z79.4
== END 2023-12-30 11:29 | disposition home or self-care (01) ==
PROVIDERS: PCP Family Medicine; Visit Provider Registered Nurse Diabetes Educator
DX: E11.65 Type 2 diabetes mellitus with hyperglycemia (principal); Z79.4 Long term (current) use of insulin

== ENCOUNTER → 2023-12-30 10:59 | Outpatient (BNVA) | payer OTHER, SELFPAY | PROVIDERS: PCP Family Medicine; Visit Provider Registered Nurse Diabetes Educator | DX: E11.65 Type 2 diabetes mellitus with hyperglycemia (principal); E78.1 Pure hyperglyceridemia; Z79.4 Long term (current) use of insulin | CPT/HCPCS: 99211 ==

== ENCOUNTER 2024-01-05 11:05 | Inpatient (IN) | payer OTHER, SELFPAY ==
[2024-01-05] VITALS (9 sets, daily range): BP systolic 121–144; BP diastolic 82–95; PULSE 69–97; RESP 12–18; TEMP 36.6–36.9; O2SAT 96–98; BMI 29.4
--- NOTE | ~2024-01-05 | XR_ITS ---
EXAMINATION: XR CHEST CLINICAL INFORMATION: Chest pain COMPARISON: May 01, 2023 TECHNIQUE: 2 views of the chest were obtained. FINDINGS: No significant abnormality is noted involving the heart, lungs, mediastinum, bony thorax or soft tissues. XR/XR chest 2V IMPRESSION: No acute disease.
--- NOTE | ~2024-01-05 | CT_ITS ---
EXAMINATION: CT ABDOMEN AND PELVIS WITH CONTRAST CLINICAL INFORMATION: Epigastric pain. COMPARISON: None available. TECHNIQUE: Multidetector volumetric images were obtained from the superior aspect of the liver through the pubic symphysis following administration 85 mL of Omnipaque 350 intravenous contrast. Sagittal and coronal reformatted images were obtained on the technologist's workstation. Oral contrast: No This CT examination was performed using dose optimization techniques as appropriate, variously including the following: *Automated exposure control *Adjustment of mA and/or kV according to patient size (this includes techniques or standardized protocols for targeted exams where dose is matched to indication/reason for exam; i.e. extremities or head) *Use of iterative reconstruction technique DLP: 508 mGy-cm FINDINGS: LUNG BASES: The visualized lung bases are unremarkable. LIVER, GALLBLADDER, AND BILIARY TREE: The liver is normal in size, shape, and attenuation. No focal hepatic lesion or biliary ductal dilatation is present. The gallbladder is unremarkable with no evidence of radiopaque gallstones, gallbladder wall thickening, or obvious pericholecystic inflammatory changes. PANCREAS: The peripancreatic fat borders are hazy from recent pancreatitis. The pancreas otherwise is homogeneous in density. No focal peripancreatic fluid collection seen. Small fluid collection in the tail of pancreas is stable. SPLEEN: Unremarkable. ADRENAL GLANDS: The left adrenal gland is slightly enlarged. The right adrenal gland is normal KIDNEYS AND URETERS: The kidneys are normal in size, shape, and attenuation. No hydronephrosis, hydroureter, or calculi seen. No perinephric stranding. There are small hypodense lesions in the midpole and the parapelvic region likely small cyst, stable. BLADDER: The bladder is distended without radiopaque calculi or bladder wall thickening. GASTROINTESTINAL TRACT: Scattered stool and gas is seen in the colon without significant distention. The small bowel loops are normal caliber. Appendix is normal caliber. ABDOMINAL WALL: No significant hernia is appreciated. LYMPH NODES: There are small shotty retroperitoneal lymph nodes seen. VASCULAR: Abdominal aorta is of normal caliber. The portal vein and the splenic veins are patent. PELVIC VISCERA: Unremarkable. OSSEOUS STRUCTURES: No aggressive lytic or sclerotic process seen. There is mild facet joint disease L4-L5 disc level. CT/CT abdomen pelvis w IV con IMPRESSION: 1. Hazy peripancreatic fat borders from recent pancreatitis. Small fluid collection in the tail of pancreas is stable. 2. Mild constipation. 3. The right renal cysts are stable. 4. The urinary bladder is distended. Fleischner guidelines were followed.
--- NOTE | 2024-01-05 11:14 | ED.GENADULT ---
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 He endorses associated nausea with 1 episode of vomiting this morning. He admits pain feels similar to when he had pancreatitis. He does endorse history of ETOH abuse however has not consumed alcohol in over 2 weeks. When asked how much he used to drink daily, he states I didn't count . He has not taken anything for pain at home. Reports normal bowel movements with last bowel movement being yesterday. Denies fever, chills, sore throat, cough, sputum production, flank pain, dysuria, hematuria, diarrhea, constipation, rashes. Denies illicit substance use. Denies recent travel. On initial triage evaluation, patient was noted to endorsed chest pain however he is denying this at this time. He states that the pain has always been in the epigastric region and that he never had chest pain. Patient does endorse history of TBI and states that his sister is at bedside to assist with history. kennel assistant utilized throughout visit to communicate with patient. Related Data Home Medications Medication Instructions Recorded Confirmed fluoxetine 20 mg capsule 20 mg PO DAILY 08/06/20 01/05/24 blood sugar diagnostic #10 ea 02/04/21 11/27/21 folic acid 1 mg tablet 1 mg PO DAILY 04/28/23 01/05/24 lisinopril 20 mg tablet 20 mg PO DAILY 04/28/23 01/05/24 thiamine HCl (vitamin B1) 100 mg 100 mg PO DAILY 04/28/23 01/05/24 tablet fenofibrate 160 mg tablet 160 mg PO QPM 06/02/23 01/05/24 icosapent ethyl 1 gram capsule 2 g PO BID 06/02/23 01/05/24 (Vascepa) amlodipine 5 mg tablet 5 mg PO DAILY 01/05/24 01/05/24 atorvastatin 80 mg tablet 80 mg PO BEDTIME 01/05/24 01/05/24 insulin glargine 100 unit/mL (3 36 unit subcut BEDTIME 01/05/24 01/05/24 mL) subcutaneous pen (Lantus Solostar U-100 Insulin) metformin 500 mg tablet,extended 500 mg PO DAILY 01/05/24 01/05/24 release 24 hr Previous Rx's Medication Instructions Recorded lancets 33 gauge #100 ea 09/01/23 insulin aspart U-100 100 unit/mL 20 unit (0.2 mL) subcut TID #60 mL 01/01/24 (3 mL) subcutaneous pen (Novolog FlexPen U-100 Insulin aspart) Allergies Allergy/AdvReac Type Severity Reaction Status Date / Time No Known Allergies Allergy Verified 08/18/23 14:53 Review of Systems Review of Systems: Constitutional: No fever, chills, fatigue, night sweats, weight changes ENT/Mouth: No ear pain, hearing loss, nasal congestion, sinus pain, rhinorrhea, sore throat Eyes: No eye pain, swelling, redness, vision changes, discharge Cardio: No chest pain, palpitations, BLANKENSHIP, orthopnea, peripheral edema Pulm: No SOB, cough, sputum, wheezing, dyspnea, hemoptysis GI: No nausea, vomiting, hematemesis, abdominal pain, diarrhea, constipation, hematochezia, melena : No irregular bleeding, dysuria, frequency, urgency, hesitancy, hematuria, flank pain, urinary flow changes, urinary incontinence or retention MSK: No back pain, neck pain, joint pain, myalgias Skin: No lesions, rashes Neuro: No weakness, numbness, paresthesias, LOC, dizziness, headache Psych: No anxiety/panic, depression, SI/HI, AH/VH All other systems reviewed and are negative. [facility] Past Medical History Attestation statement: The following information was validated with the patient. Source: old records reviewed and nursing notes reviewed Medical History Uncontrolled type 2 diabetes mellitus with hyperglycemia, with long-term current use of insulin Alcohol use History of pancreatitis History of traumatic brain injury Obesity (BMI 30-39.9) Prediabetes Hypertriglyceridemia HTN (hypertension) Surgical History No pertinent past surgical history Family History Family History Father No problems noted. Mother No problems noted. Social History Social History Household Members: Other Household Members Other:: mother Housing: House Do you presently have visiting nurse or other home services: Yes ([employer] services from) Alcohol intake: current Alcohol intake frequency: holidays/special occasions only Alcohol type: beer Comment: camera removed, pt cooperative Patient Tobacco Use Status: Never used Tobacco Tobacco use type: Cigarette Cigarettes Per Day: 3 e-Cigarette/Vaping Use: Never Used Second Hand Smoke Exposure: Yes Advance Directives: No service: No Current occupational status: unemployed and disabled Current occupation: and disability Physical Exam ED Vital Signs: Vital Signs - 24 hr 01/05/24 11:13 01/05/24 13:53 Temperature 97.9 F Pulse Rate 97 Respiratory Rate 18 16 Blood Pressure 142/85 H Pulse Oximetry 98 Oxygen Delivery Method Room Air BMI result Body Mass Index 29.4 Patient hypertensive, vitals otherwise WNL. Afebrile. Const General: cooperative, healthy appearing, comfortable and no acute distress Orientation/consciousness: patient oriented x3 Limitations: no limitations HENMT Head: Yes normal to inspection, Yes No palpable skull fracture present, Yes normocephalic and Yes atraumatic Eyes General: appearance normal, both eyes and all related structures Eyelids: Yes eyelids normal Conjunctivae: conjunctivae normal Corneas: corneas normal Neck Neck: Yes normal visual inspection, Yes full ROM, Yes no lymphadenopathy and Yes no JVD Resp Effort & Inspection: normal respiratory effort and able to speak in complete sentences Auscultation: clear to auscultation bilaterally Cardio Rate: regular rate Rhythm: regular rhythm GI Other: Abdomen soft, nondistended, tender to palpation of the epigastric region. No rebound tenderness or guarding. Normoactive bowel sounds x4. Negative Hassan's sign. Inspection: Yes normal to inspection General: Yes no CVA tenderness Back/Spine/Pelvis Back: no CVA tenderness Skin General skin exam: no rashes or lesions noted Neuro General: patient oriented x3 and gait normal Gait exam (Neuro): Normal gait present Extrem General: Yes normal to inspection, Yes full ROM and Yes capillary refill normal Course Course Course Narrative: This is an RME: Additional HPI, ROS, PE not included below will be deferred to primary provider. 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 Patient reports that he took his blood glucose level this morning was 300. Patient states that he has a poor memory due to TBI and states that he relies on his sister for more specific details regarding his medical history. He does have epigastric and right upper quadrant tenderness on examination with guarding. Further ER evaluation needed. Patient mildly hypertensive at 142/85, all other vital signs within normal limits. Plan: Labs, EKG, chest x-ray, ultrasound Reevaluation(s) Reevaluation #1: 1254-- patient has tested negative for flu, RSV, COVID. CBC without leukocytosis or left shift. No anemia. VBG wnl. Random glucose noted to be 396 > patient receiving IV fluids and 10 units of insulin. Beta hydroxybutyrate WNL. No concern for DKA at this time. Chemistry without acute electrolyte abnormality requiring intervention. Initial troponin undetectable. EKG WNL. ACS unlikely. 1500-- Triglycerides noted to be 1621. On review of priors, patient has chronically elevated triglycerides. Lipase is noted to be 177. I have concern for acute pancreatitis secondary to hypertriglyceridemia. Patient has a history of this and has been admitted to [facility] [place] [place] ICU for treatment. Will reach out to hospitalist regarding admission. 1521-- I spoke with hospitalist, Dr. Campuzano, and after reviewing the case, recommends ICU admission for IV insulin infusion. Will reach out to treasury management sales consultant. 1530-- I spoke with treasury management sales consultant, Dr. Duarte, who accepts ICU admission for acute pancreatitis secondary to hypertriglyceridemia and diabetic gastroparesis requiring IV insulin infusion. Medications Administered Generic Name Dose Route Start Last Admin Trade Name Freq PRN Reason Stop Dose Admin Heparin Sodium (Porcine) 5,000 unit 01/05/24 16:00 01/05/24 16:21 Heparin Sodium,Porcine 5,000 Unit/Ml Vial SUBCUT 5,000 unit Q8H TOBY Administration Insulin Human Regular 100 unit in 100 mls @ 0 mls/hr 01/05/24 15:45 01/05/24 16:22 Myxredlin IVCONT 1 unit/hr .Q0M TOBY 1 mls/hr Administration Protocol Per Protocol Lactated Ringer's 1,000 mls @ 200 mls/hr 01/05/24 16:00 01/05/24 16:13 Lr IVCONT 200 mls/hr .Q5H TOBY Administration Discontinued Medications Generic Name Dose Route Start Last Admin Trade Name Freq PRN Reason Stop Dose Admin Sodium Chloride 1,000 mls @ 999 mls/hr 01/05/24 13:15 01/05/24 14:27 Ns IV 01/05/24 14:15 Infused .Q1H1M TOBY Infusion Iohexol 100 ml 01/05/24 14:59 01/05/24 15:00 Iohexol 350 Mg/Ml 100 Ml Infus..Btl IV 01/05/24 15:00 85 ml ONCE ONE Administration Morphine Sulfate 4 mg 01/05/24 13:01 01/05/24 13:53 Morphine Sulfate 4 Mg/Ml Cartridge IVPUSH 01/05/24 13:02 4 mg ONCE ONE Administration Protocol Medical Decision Making Medical Decision Making MDM Narrative: 43 year old [place] speaking male with pmhx significant for hypertension, uncontrolled type 2 diabetes, TBI, pancreatitis in the setting of EtOH abuse presents to the ED today for evaluation of epigastric abdominal pain that began 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 Patient hypertensive, vitals otherwise WNL. Afebrile. He is nontoxic-appearing and in no acute distress. On exam, abdomen soft, nondistended, tender to palpation of the epigastric region without rebound or guarding. Negative Hassan's sign. Normoactive bowel sounds x4. No CVAT bilaterally. Differential diagnosis includes cholecystitis, pancreatitis, biliary colic, gastritis, gastroenteritis. Low suspicion for appendicitis, SBO, ischemic bowel, acute abdomen. Patient initially endorsed chest pain while in triage so chest x-ray and EKG were obtained. Plan for basic labs, IV fluids, CT abdomen/pelvis, pain control, and re-evaluation. Differential Diagnosis Differential Diagnoses: The differential diagnosis associated with the presentation includes As above Admission/Observation Consideration of admission/observation: Escalation of care including admission/observation considered This patient with acute pancreatitis secondary to hypertriglyceridemia will be admitted to ICU for fluid resuscitation. Consult Healthcare Provider Management of the patient was discussed with: Hospitalist (Dr. Campuzano) and [employer] (Dr. Wyman (treasury management sales consultant)) Lab Data MDM Lab Attestation statement: I reviewed the patient's lab results. As above 01/05/24 11:31 01/05/24 11:31 Labs: Lab Results 01/05/24 01/05/24 01/05/24 Range/Units 11:31 11:31 11:31 WBC 5.6 5.6 (4.8-10.8) X10*3/uL RBC 4.80 4.80 (4.60-5.80) X10*6/uL Hgb 15.0 (14.0-18.0) g/dl Hct (42.0-52.0) % MCV (80.0-98.0) fL MCH (27.0-33.0) pg MCHC (31.0-36.0) g/dl RDW (11.0-16.0) % Plt Count (160-400) X10*3/uL MPV (9.4-12.4) fL Immature Gran % (Auto) (0.0-0.4) % Neut % (Auto) (45-73) % Lymph % (Auto) (20-40) % Dolores % (Auto) (2-11) % Eos % (Auto) (0-4) % Baso % (Auto) (0-2) % Lymph # (Auto) (1.2-4.9) X10*3/uL Dolores # (Auto) (0.1-1.2) X10*3/uL Eos # (Auto) (0.0-0.4) X10*3/uL Baso # (Auto) (0.0-0.2) X10*3/uL Abs Immat Gran (auto) (0.00-0.03) X10*3/uL Absolute Neuts (auto) (2.0-8.3) x10*3/uL Absolute Nucleated RBC (0.0-0.012) X10*3/uL Nucleated RBC % (auto) (0.0-0.2) /100WBC VBG pH (7.32-7.43) VBG pCO2 mmHg VBG pO2 mmHg VBG HCO3 (22-26) mmol/L VBG O2 Saturation % VBG Base Excess mmol/L Sodium (135-145) mmol/L Potassium (3.3-5.1) mmol/L Chloride (96-108) mmol/L Carbon Dioxide (22-29) mmol/L Anion Gap (12-20) BUN (9-16) mg/dL Creatinine (0.5-1.4) mg/dL Estim Creat Clear Calc Estimated GFR Random Glucose (60-115) mg/dL Calcium (8.4-10.2) mg/dL Magnesium (1.6-2.6) mg/dL Total Bilirubin (0.0-1.0) mg/dL Direct Bilirubin (0.0-0.5) mg/dL AST (5-37) U/L ALT (0-40) U/L Alkaline Phosphatase (39-117) U/L Troponin I High Sens (<3.5-35.0) ng/L Total Protein (6.5-8.0) g/dL Albumin (3.5-5.0) g/dL Triglycerides (<150) mg/dL Lipase (8-78) U/L Beta-Hydroxybutyrate (0.02-0.27) mmol/L Ethyl Alcohol mg/dL Influenza Type A (PCR) (Negative) Influenza Type B (PCR) (Negative) RSV RNA Qual (PCR) (Negative) SARS-CoV-2 RNA (RT-PCR) (Negative) 01/05/24 01/05/24 01/05/24 Range/Units 11:31 11:31 11:31 WBC (4.8-10.8) X10*3/uL RBC (4.60-5.80) X10*6/uL Hgb 15.1 (14.0-18.0) g/dl Hct 41.5 L 41.5 L (42.0-52.0) % MCV 86.5 86.5 (80.0-98.0) fL MCH 31.3 (27.0-33.0) pg MCHC (31.0-36.0) g/dl RDW (11.0-16.0) % Plt Count (160-400) X10*3/uL MPV (9.4-12.4) fL Immature Gran % (Auto) (0.0-0.4) % Neut % (Auto) (45-73) % Lymph % (Auto) (20-40) % Dolores % (Auto) (2-11) % Eos % (Auto) (0-4) % Baso % (Auto) (0-2) % Lymph # (Auto) (1.2-4.9) X10*3/uL Dolores # (Auto) (0.1-1.2) X10*3/uL Eos # (Auto) (0.0-0.4) X10*3/uL Baso # (Auto) (0.0-0.2) X10*3/uL Abs Immat Gran (auto) (0.00-0.03) X10*3/uL Absolute Neuts (auto) (2.0-8.3) x10*3/uL Absolute Nucleated RBC (0.0-0.012) X10*3/uL Nucleated RBC % (auto) (0.0-0.2) /100WBC VBG pH (7.32-7.43) VBG pCO2 mmHg VBG pO2 mmHg VBG HCO3 (22-26) mmol/L VBG O2 Saturation % VBG Base Excess mmol/L Sodium (135-145) mmol/L Potassium (3.3-5.1) mmol/L Chloride (96-108) mmol/L Carbon Dioxide (22-29) mmol/L Anion Gap (12-20) BUN (9-16) mg/dL Creatinine (0.5-1.4) mg/dL Estim Creat Clear Calc Estimated GFR Random Glucose (60-115) mg/dL Calcium (8.4-10.2) mg/dL Magnesium (1.6-2.6) mg/dL Total Bilirubin (0.0-1.0) mg/dL Direct Bilirubin (0.0-0.5) mg/dL AST (5-37) U/L ALT (0-40) U/L Alkaline Phosphatase (39-117) U/L Troponin I High Sens (<3.5-35.0) ng/L Total Protein (6.5-8.0) g/dL Albumin (3.5-5.0) g/dL Triglycerides (<150) mg/dL Lipase (8-78) U/L Beta-Hydroxybutyrate (0.02-0.27) mmol/L Ethyl Alcohol mg/dL Influenza Type A (PCR) (Negative) Influenza Type B (PCR) (Negative) RSV RNA Qual (PCR) (Negative) SARS-CoV-2 RNA (RT-PCR) (Negative) 01/05/24 01/05/24 01/05/24 Range/Units 11:31 11:31 11:31 WBC (4.8-10.8) X10*3/uL RBC (4.60-5.80) X10*6/uL Hgb (14.0-18.0) g/dl Hct (42.0-52.0) % MCV (80.0-98.0) fL MCH 31.5 (27.0-33.0) pg MCHC 36.1 H 36.4 H (31.0-36.0) g/dl RDW 11.8 11.8 (11.0-16.0) % Plt Count 169 (160-400) X10*3/uL MPV (9.4-12.4) fL Immature Gran % (Auto) (0.0-0.4) % Neut % (Auto) (45-73) % Lymph % (Auto) (20-40) % Dolores % (Auto) (2-11) % Eos % (Auto) (0-4) % Baso % (Auto) (0-2) % Lymph # (Auto) (1.2-4.9) X10*3/uL Dolores # (Auto) (0.1-1.2) X10*3/uL Eos # (Auto) (0.0-0.4) X10*3/uL Baso # (Auto) (0.0-0.2) X10*3/uL Abs Immat Gran (auto) (0.00-0.03) X10*3/uL Absolute Neuts (auto) (2.0-8.3) x10*3/uL Absolute Nucleated RBC (0.0-0.012) X10*3/uL Nucleated RBC % (auto) (0.0-0.2) /100WBC VBG pH (7.32-7.43) VBG pCO2 mmHg VBG pO2 mmHg VBG HCO3 (22-26) mmol/L VBG O2 Saturation % VBG Base Excess mmol/L Sodium (135-145) mmol/L Potassium (3.3-5.1) mmol/L Chloride (96-108) mmol/L Carbon Dioxide (22-29) mmol/L Anion Gap (12-20) BUN (9-16) mg/dL Creatinine (0.5-1.4) mg/dL Estim Creat Clear Calc Estimated GFR Random Glucose (60-115) mg/dL Calcium (8.4-10.2) mg/dL Magnesium (1.6-2.6) mg/dL Total Bilirubin (0.0-1.0) mg/dL Direct Bilirubin (0.0-0.5) mg/dL AST (5-37) U/L ALT (0-40) U/L Alkaline Phosphatase (39-117) U/L Troponin I High Sens (<3.5-35.0) ng/L Total Protein (6.5-8.0) g/dL Albumin (3.5-5.0) g/dL Triglycerides (<150) mg/dL Lipase (8-78) U/L Beta-Hydroxybutyrate (0.02-0.27) mmol/L Ethyl Alcohol mg/dL Influenza Type A (PCR) (Negative) Influenza Type B (PCR) (Negative) RSV RNA Qual (PCR) (Negative) SARS-CoV-2 RNA (RT-PCR) (Negative) 01/05/24 01/05/24 01/05/24 Range/Units 11:31 11:31 11:31 WBC (4.8-10.8) X10*3/uL RBC (4.60-5.80) X10*6/uL Hgb (14.0-18.0) g/dl Hct (42.0-52.0) % MCV (80.0-98.0) fL MCH (27.0-33.0) pg MCHC (31.0-36.0) g/dl RDW (11.0-16.0) % Plt Count 164 (160-400) X10*3/uL MPV 8.6 L 8.7 L (9.4-12.4) fL Immature Gran % (Auto) 0.5 H 0.4 (0.0-0.4) % Neut % (Auto) 67.5 (45-73) % Lymph % (Auto) (20-40) % Dolores % (Auto) (2-11) % Eos % (Auto) (0-4) % Baso % (Auto) (0-2) % Lymph # (Auto) (1.2-4.9) X10*3/uL Dolores # (Auto) (0.1-1.2) X10*3/uL Eos # (Auto) (0.0-0.4) X10*3/uL Baso # (Auto) (0.0-0.2) X10*3/uL Abs Immat Gran (auto) (0.00-0.03) X10*3/uL Absolute Neuts (auto) (2.0-8.3) x10*3/uL Absolute Nucleated RBC (0.0-0.012) X10*3/uL Nucleated RBC % (auto) (0.0-0.2) /100WBC VBG pH (7.32-7.43) VBG pCO2 mmHg VBG pO2 mmHg VBG HCO3 (22-26) mmol/L VBG O2 Saturation % VBG Base Excess mmol/L Sodium (135-145) mmol/L Potassium (3.3-5.1) mmol/L Chloride (96-108) mmol/L Carbon Dioxide (22-29) mmol/L Anion Gap (12-20) BUN (9-16) mg/dL Creatinine (0.5-1.4) mg/dL Estim Creat Clear Calc Estimated GFR Random Glucose (60-115) mg/dL Calcium (8.4-10.2) mg/dL Magnesium (1.6-2.6) mg/dL Total Bilirubin (0.0-1.0) mg/dL Direct Bilirubin (0.0-0.5) mg/dL AST (5-37) U/L ALT (0-40) U/L Alkaline Phosphatase (39-117) U/L Troponin I High Sens (<3.5-35.0) ng/L Total Protein (6.5-8.0) g/dL Albumin (3.5-5.0) g/dL Triglycerides (<150) mg/dL Lipase (8-78) U/L Beta-Hydroxybutyrate (0.02-0.27) mmol/L Ethyl Alcohol mg/dL Influenza Type A (PCR) (Negative) Influenza Type B (PCR) (Negative) RSV RNA Qual (PCR) (Negative) SARS-CoV-2 RNA (RT-PCR) (Negative) 01/05/24 01/05/24 01/05/24 Range/Units 11:31 11:31 11:31 WBC (4.8-10.8) X10*3/uL RBC (4.60-5.80) X10*6/uL Hgb (14.0-18.0) g/dl Hct (42.0-52.0) % MCV (80.0-98.0) fL MCH (27.0-33.0) pg MCHC (31.0-36.0) g/dl RDW (11.0-16.0) % Plt Count (160-400) X10*3/uL MPV (9.4-12.4) fL Immature Gran % (Auto) (0.0-0.4) % Neut % (Auto) 67.1 (45-73) % Lymph % (Auto) 22.0 22.6 (20-40) % Dolores % (Auto) 8.0 7.5 (2-11) % Eos % (Auto) 1.6 (0-4) % Baso % (Auto) (0-2) % Lymph # (Auto) (1.2-4.9) X10*3/uL Dolores # (Auto) (0.1-1.2) X10*3/uL Eos # (Auto) (0.0-0.4) X10*3/uL Baso # (Auto) (0.0-0.2) X10*3/uL Abs Immat Gran (auto) (0.00-0.03) X10*3/uL Absolute Neuts (auto) (2.0-8.3) x10*3/uL Absolute Nucleated RBC (0.0-0.012) X10*3/uL Nucleated RBC % (auto) (0.0-0.2) /100WBC VBG pH (7.32-7.43) VBG pCO2 mmHg VBG pO2 mmHg VBG HCO3 (22-26) mmol/L VBG O2 Saturation % VBG Base Excess mmol/L Sodium (135-145) mmol/L Potassium (3.3-5.1) mmol/L Chloride (96-108) mmol/L Carbon Dioxide (22-29) mmol/L Anion Gap (12-20) BUN (9-16) mg/dL Creatinine (0.5-1.4) mg/dL Estim Creat Clear Calc Estimated GFR Random Glucose (60-115) mg/dL Calcium (8.4-10.2) mg/dL Magnesium (1.6-2.6) mg/dL Total Bilirubin (0.0-1.0) mg/dL Direct Bilirubin (0.0-0.5) mg/dL AST (5-37) U/L ALT (0-40) U/L Alkaline Phosphatase (39-117) U/L Troponin I High Sens (<3.5-35.0) ng/L Total Protein (6.5-8.0) g/dL Albumin (3.5-5.0) g/dL Triglycerides (<150) mg/dL Lipase (8-78) U/L Beta-Hydroxybutyrate (0.02-0.27) mmol/L Ethyl Alcohol mg/dL Influenza Type A (PCR) (Negative) Influenza Type B (PCR) (Negative) RSV RNA Qual (PCR) (Negative) SARS-CoV-2 RNA (RT-PCR) (Negative) 01/05/24 01/05/24 01/05/24 Range/Units 11:31 11:31 11:31 WBC (4.8-10.8) X10*3/uL RBC (4.60-5.80) X10*6/uL Hgb (14.0-18.0) g/dl Hct (42.0-52.0) % MCV (80.0-98.0) fL MCH (27.0-33.0) pg MCHC (31.0-36.0) g/dl RDW (11.0-16.0) % Plt Count (160-400) X10*3/uL MPV (9.4-12.4) fL Immature Gran % (Auto) (0.0-0.4) % Neut % (Auto) (45-73) % Lymph % (Auto) (20-40) % Dolores % (Auto) (2-11) % Eos % (Auto) 2.0 (0-4) % Baso % (Auto) 0.4 0.4 (0-2) % Lymph # (Auto) 1.2 1.3 (1.2-4.9) X10*3/uL Dolores # (Auto) 0.5 (0.1-1.2) X10*3/uL Eos # (Auto) (0.0-0.4) X10*3/uL Baso # (Auto) (0.0-0.2) X10*3/uL Abs Immat Gran (auto) (0.00-0.03) X10*3/uL Absolute Neuts (auto) (2.0-8.3) x10*3/uL Absolute Nucleated RBC (0.0-0.012) X10*3/uL Nucleated RBC % (auto) (0.0-0.2) /100WBC VBG pH (7.32-7.43) VBG pCO2 mmHg VBG pO2 mmHg VBG HCO3 (22-26) mmol/L VBG O2 Saturation % VBG Base Excess mmol/L Sodium (135-145) mmol/L Potassium (3.3-5.1) mmol/L Chloride (96-108) mmol/L Carbon Dioxide (22-29) mmol/L Anion Gap (12-20) BUN (9-16) mg/dL Creatinine (0.5-1.4) mg/dL Estim Creat Clear Calc Estimated GFR Random Glucose (60-115) mg/dL Calcium (8.4-10.2) mg/dL Magnesium (1.6-2.6) mg/dL Total Bilirubin (0.0-1.0) mg/dL Direct Bilirubin (0.0-0.5) mg/dL AST (5-37) U/L ALT (0-40) U/L Alkaline Phosphatase (39-117) U/L Troponin I High Sens (<3.5-35.0) ng/L Total Protein (6.5-8.0) g/dL Albumin (3.5-5.0) g/dL Triglycerides (<150) mg/dL Lipase (8-78) U/L Beta-Hydroxybutyrate (0.02-0.27) mmol/L Ethyl Alcohol mg/dL Influenza Type A (PCR) (Negative) Influenza Type B (PCR) (Negative) RSV RNA Qual (PCR) (Negative) SARS-CoV-2 RNA (RT-PCR) (Negative) 01/05/24 01/05/24 01/05/24 Range/Units 11:31 11:31 11:31 WBC (4.8-10.8) X10*3/uL RBC (4.60-5.80) X10*6/uL Hgb (14.0-18.0) g/dl Hct (42.0-52.0) % MCV (80.0-98.0) fL MCH (27.0-33.0) pg MCHC (31.0-36.0) g/dl RDW (11.0-16.0) % Plt Count (160-400) X10*3/uL MPV (9.4-12.4) fL Immature Gran % (Auto) (0.0-0.4) % Neut % (Auto) (45-73) % Lymph % (Auto) (20-40) % Dolores % (Auto) (2-11) % Eos % (Auto) (0-4) % Baso % (Auto) (0-2) % Lymph # (Auto) (1.2-4.9) X10*3/uL Dolores # (Auto) 0.4 (0.1-1.2) X10*3/uL Eos # (Auto) 0.1 0.1 (0.0-0.4) X10*3/uL Baso # (Auto) 0.0 0.0 (0.0-0.2) X10*3/uL Abs Immat Gran (auto) 0.03 (0.00-0.03) X10*3/uL Absolute Neuts (auto) (2.0-8.3) x10*3/uL Absolute Nucleated RBC (0.0-0.012) X10*3/uL Nucleated RBC % (auto) (0.0-0.2) /100WBC VBG pH (7.32-7.43) VBG pCO2 mmHg VBG pO2 mmHg VBG HCO3 (22-26) mmol/L VBG O2 Saturation % VBG Base Excess mmol/L Sodium (135-145) mmol/L Potassium (3.3-5.1) mmol/L Chloride (96-108) mmol/L Carbon Dioxide (22-29) mmol/L Anion Gap (12-20) BUN (9-16) mg/dL Creatinine (0.5-1.4) mg/dL Estim Creat Clear Calc Estimated GFR Random Glucose (60-115) mg/dL Calcium (8.4-10.2) mg/dL Magnesium (1.6-2.6) mg/dL Total Bilirubin (0.0-1.0) mg/dL Direct Bilirubin (0.0-0.5) mg/dL AST (5-37) U/L ALT (0-40) U/L Alkaline Phosphatase (39-117) U/L Troponin I High Sens (<3.5-35.0) ng/L Total Protein (6.5-8.0) g/dL Albumin (3.5-5.0) g/dL Triglycerides (<150) mg/dL Lipase (8-78) U/L Beta-Hydroxybutyrate (0.02-0.27) mmol/L Ethyl Alcohol mg/dL Influenza Type A (PCR) (Negative) Influenza Type B (PCR) (Negative) RSV RNA Qual (PCR) (Negative) SARS-CoV-2 RNA (RT-PCR) (Negative) 01/05/24 01/05/24 01/05/24 Range/Units 11:31 11:31 11:31 WBC (4.8-10.8) X10*3/uL RBC (4.60-5.80) X10*6/uL Hgb (14.0-18.0) g/dl Hct (42.0-52.0) % MCV (80.0-98.0) fL MCH (27.0-33.0) pg MCHC (31.0-36.0) g/dl RDW (11.0-16.0) % Plt Count (160-400) X10*3/uL MPV (9.4-12.4) fL Immature Gran % (Auto) (0.0-0.4) % Neut % (Auto) (45-73) % Lymph % (Auto) (20-40) % Dolores % (Auto) (2-11) % Eos % (Auto) (0-4) % Baso % (Auto) (0-2) % Lymph # (Auto) (1.2-4.9) X10*3/uL Dolores # (Auto) (0.1-1.2) X10*3/uL Eos # (Auto) (0.0-0.4) X10*3/uL Baso # (Auto) (0.0-0.2) X10*3/uL Abs Immat Gran (auto) 0.02 (0.00-0.03) X10*3/uL Absolute Neuts (auto) 3.8 3.8 (2.0-8.3) x10*3/uL Absolute Nucleated RBC 0.000 0.000 (0.0-0.012) X10*3/uL Nucleated RBC % (auto) 0.0 (0.0-0.2) /100WBC VBG pH (7.32-7.43) VBG pCO2 mmHg VBG pO2 mmHg VBG HCO3 (22-26) mmol/L VBG O2 Saturation % VBG Base Excess mmol/L Sodium (135-145) mmol/L Potassium (3.3-5.1) mmol/L Chloride (96-108) mmol/L Carbon Dioxide (22-29) mmol/L Anion Gap (12-20) BUN (9-16) mg/dL Creatinine (0.5-1.4) mg/dL Estim Creat Clear Calc Estimated GFR Random Glucose (60-115) mg/dL Calcium (8.4-10.2) mg/dL Magnesium (1.6-2.6) mg/dL Total Bilirubin (0.0-1.0) mg/dL Direct Bilirubin (0.0-0.5) mg/dL AST (5-37) U/L ALT (0-40) U/L Alkaline Phosphatase (39-117) U/L Troponin I High Sens (<3.5-35.0) ng/L Total Protein (6.5-8.0) g/dL Albumin (3.5-5.0) g/dL Triglycerides (<150) mg/dL Lipase (8-78) U/L Beta-Hydroxybutyrate (0.02-0.27) mmol/L Ethyl Alcohol mg/dL Influenza Type A (PCR) (Negative) Influenza Type B (PCR) (Negative) RSV RNA Qual (PCR) (Negative) SARS-CoV-2 RNA (RT-PCR) (Negative) 01/05/24 01/05/24 01/05/24 Range/Units 11:31 11:31 11:31 WBC (4.8-10.8) X10*3/uL RBC (4.60-5.80) X10*6/uL Hgb (14.0-18.0) g/dl Hct (42.0-52.0) % MCV (80.0-98.0) fL MCH (27.0-33.0) pg MCHC (31.0-36.0) g/dl RDW (11.0-16.0) % Plt Count (160-400) X10*3/uL MPV (9.4-12.4) fL Immature Gran % (Auto) (0.0-0.4) % Neut % (Auto) (45-73) % Lymph % (Auto) (20-40) % Dolores % (Auto) (2-11) % Eos % (Auto) (0-4) % Baso % (Auto) (0-2) % Lymph # (Auto) (1.2-4.9) X10*3/uL Dolores # (Auto) (0.1-1.2) X10*3/uL Eos # (Auto) (0.0-0.4) X10*3/uL Baso # (Auto) (0.0-0.2) X10*3/uL Abs Immat Gran (auto) (0.00-0.03) X10*3/uL Absolute Neuts (auto) (2.0-8.3) x10*3/uL Absolute Nucleated RBC (0.0-0.012) X10*3/uL Nucleated RBC % (auto) 0.0 (0.0-0.2) /100WBC VBG pH (7.32-7.43) VBG pCO2 mmHg VBG pO2 mmHg VBG HCO3 (22-26) mmol/L VBG O2 Saturation % VBG Base Excess mmol/L Sodium 136 Cancelled (135-145) mmol/L Potassium 4.1 Cancelled (3.3-5.1) mmol/L Chloride 104 (96-108) mmol/L Carbon Dioxide (22-29) mmol/L Anion Gap (12-20) BUN (9-16) mg/dL Creatinine (0.5-1.4) mg/dL Estim Creat Clear Calc Estimated GFR Random Glucose (60-115) mg/dL Calcium (8.4-10.2) mg/dL Magnesium (1.6-2.6) mg/dL Total Bilirubin (0.0-1.0) mg/dL Direct Bilirubin (0.0-0.5) mg/dL AST (5-37) U/L ALT (0-40) U/L Alkaline Phosphatase (39-117) U/L Troponin I High Sens (<3.5-35.0) ng/L Total Protein (6.5-8.0) g/dL Albumin (3.5-5.0) g/dL Triglycerides (<150) mg/dL Lipase (8-78) U/L Beta-Hydroxybutyrate (0.02-0.27) mmol/L Ethyl Alcohol mg/dL Influenza Type A (PCR) (Negative) Influenza Type B (PCR) (Negative) RSV RNA Qual (PCR) (Negative) SARS-CoV-2 RNA (RT-PCR) (Negative) 01/05/24 01/05/24 01/05/24 Range/Units 11:31 11:31 11:31 WBC (4.8-10.8) X10*3/uL RBC (4.60-5.80) X10*6/uL Hgb (14.0-18.0) g/dl Hct (42.0-52.0) % MCV (80.0-98.0) fL MCH (27.0-33.0) pg MCHC (31.0-36.0) g/dl RDW (11.0-16.0) % Plt Count (160-400) X10*3/uL MPV (9.4-12.4) fL Immature Gran % (Auto) (0.0-0.4) % Neut % (Auto) (45-73) % Lymph % (Auto) (20-40) % Dolores % (Auto) (2-11) % Eos % (Auto) (0-4) % Baso % (Auto) (0-2) % Lymph # (Auto) (1.2-4.9) X10*3/uL Dolores # (Auto) (0.1-1.2) X10*3/uL Eos # (Auto) (0.0-0.4) X10*3/uL Baso # (Auto) (0.0-0.2) X10*3/uL Abs Immat Gran (auto) (0.00-0.03) X10*3/uL Absolute Neuts (auto) (2.0-8.3) x10*3/uL Absolute Nucleated RBC (0.0-0.012) X10*3/uL Nucleated RBC % (auto) (0.0-0.2) /100WBC VBG pH (7.32-7.43) VBG pCO2 mmHg VBG pO2 mmHg VBG HCO3 (22-26) mmol/L VBG O2 Saturation % VBG Base Excess mmol/L Sodium (135-145) mmol/L Potassium (3.3-5.1) mmol/L Chloride Cancelled (96-108) mmol/L Carbon Dioxide 22 Cancelled (22-29) mmol/L Anion Gap 14 Cancelled (12-20) BUN 18 H (9-16) mg/dL Creatinine (0.5-1.4) mg/dL Estim Creat Clear Calc Estimated GFR Random Glucose (60-115) mg/dL Calcium (8.4-10.2) mg/dL Magnesium (1.6-2.6) mg/dL Total Bilirubin (0.0-1.0) mg/dL Direct Bilirubin (0.0-0.5) mg/dL AST (5-37) U/L ALT (0-40) U/L Alkaline Phosphatase (39-117) U/L Troponin I High Sens (<3.5-35.0) ng/L Total Protein (6.5-8.0) g/dL Albumin (3.5-5.0) g/dL Triglycerides (<150) mg/dL Lipase (8-78) U/L Beta-Hydroxybutyrate (0.02-0.27) mmol/L Ethyl Alcohol mg/dL Influenza Type A (PCR) (Negative) Influenza Type B (PCR) (Negative) RSV RNA Qual (PCR) (Negative) SARS-CoV-2 RNA (RT-PCR) (Negative) 01/05/24 01/05/24 01/05/24 Range/Units 11:31 11:31 11:31 WBC (4.8-10.8) X10*3/uL RBC (4.60-5.80) X10*6/uL Hgb (14.0-18.0) g/dl Hct (42.0-52.0) % MCV (80.0-98.0) fL MCH (27.0-33.0) pg MCHC (31.0-36.0) g/dl RDW (11.0-16.0) % Plt Count (160-400) X10*3/uL MPV (9.4-12.4) fL Immature Gran % (Auto) (0.0-0.4) % Neut % (Auto) (45-73) % Lymph % (Auto) (20-40) % Dolores % (Auto) (2-11) % Eos % (Auto) (0-4) % Baso % (Auto) (0-2) % Lymph # (Auto) (1.2-4.9) X10*3/uL Dolores # (Auto) (0.1-1.2) X10*3/uL Eos # (Auto) (0.0-0.4) X10*3/uL Baso # (Auto) (0.0-0.2) X10*3/uL Abs Immat Gran (auto) (0.00-0.03) X10*3/uL Absolute Neuts (auto) (2.0-8.3) x10*3/uL Absolute Nucleated RBC (0.0-0.012) X10*3/uL Nucleated RBC % (auto) (0.0-0.2) /100WBC VBG pH (7.32-7.43) VBG pCO2 mmHg VBG pO2 mmHg VBG HCO3 (22-26) mmol/L VBG O2 Saturation % VBG Base Excess mmol/L Sodium (135-145) mmol/L Potassium (3.3-5.1) mmol/L Chloride (96-108) mmol/L Carbon Dioxide (22-29) mmol/L Anion Gap (12-20) BUN Cancelled (9-16) mg/dL Creatinine 1.19 Cancelled (0.5-1.4) mg/dL Estim Creat Clear Calc 75.4 Cancelled Estimated GFR > 60 Random Glucose (60-115) mg/dL Calcium (8.4-10.2) mg/dL Magnesium (1.6-2.6) mg/dL Total Bilirubin (0.0-1.0) mg/dL Direct Bilirubin (0.0-0.5) mg/dL AST (5-37) U/L ALT (0-40) U/L Alkaline Phosphatase (39-117) U/L Troponin I High Sens (<3.5-35.0) ng/L Total Protein (6.5-8.0) g/dL Albumin (3.5-5.0) g/dL Triglycerides (<150) mg/dL Lipase (8-78) U/L Beta-Hydroxybutyrate (0.02-0.27) mmol/L Ethyl Alcohol mg/dL Influenza Type A (PCR) (Negative) Influenza Type B (PCR) (Negative) RSV RNA Qual (PCR) (Negative) SARS-CoV-2 RNA (RT-PCR) (Negative) 01/05/24 01/05/24 01/05/24 Range/Units 11:31 11:31 11:31 WBC (4.8-10.8) X10*3/uL RBC (4.60-5.80) X10*6/uL Hgb (14.0-18.0) g/dl Hct (42.0-52.0) % MCV (80.0-98.0) fL MCH (27.0-33.0) pg MCHC (31.0-36.0) g/dl RDW (11.0-16.0) % Plt Count (160-400) X10*3/uL MPV (9.4-12.4) fL Immature Gran % (Auto) (0.0-0.4) % Neut % (Auto) (45-73) % Lymph % (Auto) (20-40) % Dolores % (Auto) (2-11) % Eos % (Auto) (0-4) % Baso % (Auto) (0-2) % Lymph # (Auto) (1.2-4.9) X10*3/uL Dolores # (Auto) (0.1-1.2) X10*3/uL Eos # (Auto) (0.0-0.4) X10*3/uL Baso # (Auto) (0.0-0.2) X10*3/uL Abs Immat Gran (auto) (0.00-0.03) X10*3/uL Absolute Neuts (auto) (2.0-8.3) x10*3/uL Absolute Nucleated RBC (0.0-0.012) X10*3/uL Nucleated RBC % (auto) (0.0-0.2) /100WBC VBG pH (7.32-7.43) VBG pCO2 mmHg VBG pO2 mmHg VBG HCO3 (22-26) mmol/L VBG O2 Saturation % VBG Base Excess mmol/L Sodium (135-145) mmol/L Potassium (3.3-5.1) mmol/L Chloride (96-108) mmol/L Carbon Dioxide (22-29) mmol/L Anion Gap (12-20) BUN (9-16) mg/dL Creatinine (0.5-1.4) mg/dL Estim Creat Clear Calc Estimated GFR Cancelled Random Glucose 396 H* Cancelled (60-115) mg/dL Calcium 9.0 D Cancelled (8.4-10.2) mg/dL Magnesium 1.8 (1.6-2.6) mg/dL Total Bilirubin 0.5 (0.0-1.0) mg/dL Direct Bilirubin (0.0-0.5) mg/dL AST (5-37) U/L ALT (0-40) U/L Alkaline Phosphatase (39-117) U/L Troponin I High Sens (<3.5-35.0) ng/L Total Protein (6.5-8.0) g/dL Albumin (3.5-5.0) g/dL Triglycerides (<150) mg/dL Lipase (8-78) U/L Beta-Hydroxybutyrate (0.02-0.27) mmol/L Ethyl Alcohol mg/dL Influenza Type A (PCR) (Negative) Influenza Type B (PCR) (Negative) RSV RNA Qual (PCR) (Negative) SARS-CoV-2 RNA (RT-PCR) (Negative) 01/05/24 01/05/24 01/05/24 Range/Units 11:31 11:31 11:31 WBC (4.8-10.8) X10*3/uL RBC (4.60-5.80) X10*6/uL Hgb (14.0-18.0) g/dl Hct (42.0-52.0) % MCV (80.0-98.0) fL MCH (27.0-33.0) pg MCHC (31.0-36.0) g/dl RDW (11.0-16.0) % Plt Count (160-400) X10*3/uL MPV (9.4-12.4) fL Immature Gran % (Auto) (0.0-0.4) % Neut % (Auto) (45-73) % Lymph % (Auto) (20-40) % Dolores % (Auto) (2-11) % Eos % (Auto) (0-4) % Baso % (Auto) (0-2) % Lymph # (Auto) (1.2-4.9) X10*3/uL Dolores # (Auto) (0.1-1.2) X10*3/uL Eos # (Auto) (0.0-0.4) X10*3/uL Baso # (Auto) (0.0-0.2) X10*3/uL Abs Immat Gran (auto) (0.00-0.03) X10*3/uL Absolute Neuts (auto) (2.0-8.3) x10*3/uL Absolute Nucleated RBC (0.0-0.012) X10*3/uL Nucleated RBC % (auto) (0.0-0.2) /100WBC VBG pH (7.32-7.43) VBG pCO2 mmHg VBG pO2 mmHg VBG HCO3 (22-26) mmol/L VBG O2 Saturation % VBG Base Excess mmol/L Sodium (135-145) mmol/L Potassium (3.3-5.1) mmol/L Chloride (96-108) mmol/L Carbon Dioxide (22-29) mmol/L Anion Gap (12-20) BUN (9-16) mg/dL Creatinine (0.5-1.4) mg/dL Estim Creat Clear Calc Estimated GFR Random Glucose (60-115) mg/dL Calcium (8.4-10.2) mg/dL Magnesium (1.6-2.6) mg/dL Total Bilirubin Cancelled (0.0-1.0) mg/dL Direct Bilirubin 0.1 Cancelled (0.0-0.5) mg/dL AST 14 Cancelled (5-37) U/L ALT 25 (0-40) U/L Alkaline Phosphatase (39-117) U/L Troponin I High Sens (<3.5-35.0) ng/L Total Protein (6.5-8.0) g/dL Albumin (3.5-5.0) g/dL Triglycerides (<150) mg/dL Lipase (8-78) U/L Beta-Hydroxybutyrate (0.02-0.27) mmol/L Ethyl Alcohol mg/dL Influenza Type A (PCR) (Negative) Influenza Type B (PCR) (Negative) RSV RNA Qual (PCR) (Negative) SARS-CoV-2 RNA (RT-PCR) (Negative) 01/05/24 01/05/24 01/05/24 Range/Units 11:31 11:31 11:31 WBC (4.8-10.8) X10*3/uL RBC (4.60-5.80) X10*6/uL Hgb (14.0-18.0) g/dl Hct (42.0-52.0) % MCV (80.0-98.0) fL MCH (27.0-33.0) pg MCHC (31.0-36.0) g/dl RDW (11.0-16.0) % Plt Count (160-400) X10*3/uL MPV (9.4-12.4) fL Immature Gran % (Auto) (0.0-0.4) % Neut % (Auto) (45-73) % Lymph % (Auto) (20-40) % Dolores % (Auto) (2-11) % Eos % (Auto) (0-4) % Baso % (Auto) (0-2) % Lymph # (Auto) (1.2-4.9) X10*3/uL Dolores # (Auto) (0.1-1.2) X10*3/uL Eos # (Auto) (0.0-0.4) X10*3/uL Baso # (Auto) (0.0-0.2) X10*3/uL Abs Immat Gran (auto) (0.00-0.03) X10*3/uL Absolute Neuts (auto) (2.0-8.3) x10*3/uL Absolute Nucleated RBC (0.0-0.012) X10*3/uL Nucleated RBC % (auto) (0.0-0.2) /100WBC VBG pH (7.32-7.43) VBG pCO2 mmHg VBG pO2 mmHg VBG HCO3 (22-26) mmol/L VBG O2 Saturation % VBG Base Excess mmol/L Sodium (135-145) mmol/L Potassium (3.3-5.1) mmol/L Chloride (96-108) mmol/L Carbon Dioxide (22-29) mmol/L Anion Gap (12-20) BUN (9-16) mg/dL Creatinine (0.5-1.4) mg/dL Estim Creat Clear Calc Estimated GFR Random Glucose (60-115) mg/dL Calcium (8.4-10.2) mg/dL Magnesium (1.6-2.6) mg/dL Total Bilirubin (0.0-1.0) mg/dL Direct Bilirubin (0.0-0.5) mg/dL AST (5-37) U/L ALT Cancelled (0-40) U/L Alkaline Phosphatase 95 Cancelled (39-117) U/L Troponin I High Sens < 2.7 (<3.5-35.0) ng/L Total Protein 7.0 Cancelled (6.5-8.0) g/dL Albumin 4.1 (3.5-5.0) g/dL Triglycerides (<150) mg/dL Lipase (8-78) U/L Beta-Hydroxybutyrate (0.02-0.27) mmol/L Ethyl Alcohol mg/dL Influenza Type A (PCR) (Negative) Influenza Type B (PCR) (Negative) RSV RNA Qual (PCR) (Negative) SARS-CoV-2 RNA (RT-PCR) (Negative) 01/05/24 01/05/24 Range/Units 11:31 11:36 WBC (4.8-10.8) X10*3/uL RBC (4.60-5.80) X10*6/uL Hgb (14.0-18.0) g/dl Hct (42.0-52.0) % MCV (80.0-98.0) fL MCH (27.0-33.0) pg MCHC (31.0-36.0) g/dl RDW (11.0-16.0) % Plt Count (160-400) X10*3/uL MPV (9.4-12.4) fL Immature Gran % (Auto) (0.0-0.4) % Neut % (Auto) (45-73) % Lymph % (Auto) (20-40) % Dolores % (Auto) (2-11) % Eos % (Auto) (0-4) % Baso % (Auto) (0-2) % Lymph # (Auto) (1.2-4.9) X10*3/uL Dolores # (Auto) (0.1-1.2) X10*3/uL Eos # (Auto) (0.0-0.4) X10*3/uL Baso # (Auto) (0.0-0.2) X10*3/uL Abs Immat Gran (auto) (0.00-0.03) X10*3/uL Absolute Neuts (auto) (2.0-8.3) x10*3/uL Absolute Nucleated RBC (0.0-0.012) X10*3/uL Nucleated RBC % (auto) (0.0-0.2) /100WBC VBG pH 7.41 (7.32-7.43) VBG pCO2 39 mmHg VBG pO2 92 mmHg VBG HCO3 24 (22-26) mmol/L VBG O2 Saturation 98.0 % VBG Base Excess 0.5 mmol/L Sodium (135-145) mmol/L Potassium (3.3-5.1) mmol/L Chloride (96-108) mmol/L Carbon Dioxide (22-29) mmol/L Anion Gap (12-20) BUN (9-16) mg/dL Creatinine (0.5-1.4) mg/dL Estim Creat Clear Calc Estimated GFR Random Glucose (60-115) mg/dL Calcium (8.4-10.2) mg/dL Magnesium (1.6-2.6) mg/dL Total Bilirubin (0.0-1.0) mg/dL Direct Bilirubin (0.0-0.5) mg/dL AST (5-37) U/L ALT (0-40) U/L Alkaline Phosphatase (39-117) U/L Troponin I High Sens (<3.5-35.0) ng/L Total Protein (6.5-8.0) g/dL Albumin Cancelled (3.5-5.0) g/dL Triglycerides 1621 H (<150) mg/dL Lipase 177 H (8-78) U/L Beta-Hydroxybutyrate 0.14 (0.02-0.27) mmol/L Ethyl Alcohol < 10 mg/dL Influenza Type A (PCR) NEGATIVE (Negative) Influenza Type B (PCR) NEGATIVE (Negative) RSV RNA Qual (PCR) NEGATIVE (Negative) SARS-CoV-2 RNA (RT-PCR) NEGATIVE (Negative) Independent Interpretation I performed an independent interpretation of an: EKG, Plain X-Ray and CT Scan Interpretation: EKG showing normal sinus rhythm at a rate of 85 beats per minute, QT 374, QTC 445, no acute ischemic changes or ST elevations. I personally reviewed chest x-ray and agree with radiologist's interpretation. I personally reviewed CT abdomen/pelvis and agree with radiologist's interpretation. Radiology Impression Discussion of test interpretation with radiology: I have reviewed the radiologist's reading. Radiologist Impression: EXAMINATION: XR CHEST CLINICAL INFORMATION: Chest pain COMPARISON: May 01, 2023 TECHNIQUE: 2 views of the chest were obtained. FINDINGS: No significant abnormality is noted involving the heart, lungs, mediastinum, bony thorax or soft tissues. XR/XR chest 2V IMPRESSION: No acute disease. EXAMINATION: CT ABDOMEN AND PELVIS WITH CONTRAST CLINICAL INFORMATION: Epigastric pain. COMPARISON: None available. TECHNIQUE: Multidetector volumetric images were obtained from the superior aspect of the liver through the pubic symphysis following administration 85 mL of Omnipaque 350 intravenous contrast. Sagittal and coronal reformatted images were obtained on the technologist's workstation. Oral contrast: No This CT examination was performed using dose optimization techniques as appropriate, variously including the following: *Automated exposure control *Adjustment of mA and/or kV according to patient size (this includes techniques or standardized protocols for targeted exams where dose is matched to indication/reason for exam; i.e. extremities or head) *Use of iterative reconstruction technique DLP: 508 mGy-cm FINDINGS: LUNG BASES: The visualized lung bases are unremarkable. LIVER, GALLBLADDER, AND BILIARY TREE: The liver is normal in size, shape, and attenuation. No focal hepatic lesion or biliary ductal dilatation is present. The gallbladder is unremarkable with no evidence of radiopaque gallstones, gallbladder wall thickening, or obvious pericholecystic inflammatory changes. PANCREAS: The peripancreatic fat borders are hazy from recent pancreatitis. The pancreas otherwise is homogeneous in density. No focal peripancreatic fluid collection seen. Small fluid collection in the tail of pancreas is stable. SPLEEN: Unremarkable. ADRENAL GLANDS: The left adrenal gland is slightly enlarged. The right adrenal gland is normal KIDNEYS AND URETERS: The kidneys are normal in size, shape, and attenuation. No hydronephrosis, hydroureter, or calculi seen. No perinephric stranding. There are small hypodense lesions in the midpole and the parapelvic region likely small cyst, stable. BLADDER: The bladder is distended without radiopaque calculi or bladder wall thickening. GASTROINTESTINAL TRACT: Scattered stool and gas is seen in the colon without significant distention. The small bowel loops are normal caliber. Appendix is normal caliber. ABDOMINAL WALL: No significant hernia is appreciated. LYMPH NODES: There are small shotty retroperitoneal lymph nodes seen. VASCULAR: Abdominal aorta is of normal caliber. The portal vein and the splenic veins are patent. PELVIC VISCERA: Unremarkable. OSSEOUS STRUCTURES: No aggressive lytic or sclerotic process seen. There is mild facet joint disease L4-L5 disc level. CT/CT abdomen pelvis w IV con IMPRESSION: 1. Hazy peripancreatic fat borders from recent pancreatitis. Small fluid collection in the tail of pancreas is stable. 2. Mild constipation. 3. The right renal cysts are stable. 4. The urinary bladder is distended. Fleischner guidelines were followed. Independent Historian Clinical information obtained from an independent historian. History obtained from or confirmed by: Other (Sister) External Record Review External record reviewed: Inpatient record, Office record, Outpatient record, Prior outpatient labs, Prior outpatient radiology, Primary care record and Outside ED record Prescription Management I considered prescription management with: Pain Medication Chronic Conditions Patient?s care impacted by: Other (Pancreatitis, ETOH abuse, hypertriglyceridemia) Social Determinants Patient?s care significantly limited by Social Determinants of Health including: Alcoholism and drug addiction in family and Other Social Determinant of Health Critical Care Time Critical Care Time Critical Care Time: Yes Total Critical Care Time: 180 Attestation: Critical care time in the amount of 180 minutes has been provided to the patient in terms of direct patient care, frequent reevaluation, consultation with treasury management sales consultant and hospitalist, review and interpretation of medical data and results, and management of potentially life-threatening conditions. This is all outside of any medical procedures. Discharge Plan Discharge Clinical Impression: Diabetes mellitus with gastroparesis, Hypertriglyceridemia Acute pancreatitis Qualifiers: Pancreatitis type: alcohol induced Acute pancreatitis complication: no infection or necrosis Qualified Code(s): K85.20 - Alcohol induced acute pancreatitis without necrosis or infection Patient Disposition: Admitted As Inpatient
--- NOTE | 2024-01-05 11:18 | ECG_ITS ---
Test Reason : cp Blood Pressure : / mmHG Vent. Rate : 085 BPM Atrial Rate : 085 BPM P-R Int : 124 ms QRS Dur : 082 ms QT Int : 374 ms P-R-T Axes : 058 050 036 degrees QTc Int : 445 ms Normal sinus rhythm Normal ECG When compared with ECG of 05-AUG-2023 13:11, No significant change was found Referred By: Lexi Cox Electronically Signed By:Sam Fernandes
[2024-01-05 11:36] LABS: MANUAL DIFF FLAG NO
[2024-01-05 11:39] LABS: Basophils Percent Auto 0.4 % (0-2); Eosinophils Absolute Auto 0.1 X10*3/uL (0.0-0.4); Eosinophils Percent Auto 1.6 % (0-4); Hematocrit 41.5 % (42.0-52.0); Hemoglobin 15.1 g/dl (14.0-18.0); Imm Gran Abs Auto 0.02 X10*3/uL (0.00-0.03); Imm Gran Abs Auto 0.03 X10*3/uL (0.00-0.03); Imm Gran Pct Auto 0.4 % (0.0-0.4); Imm Gran Pct Auto 0.5 % (0.0-0.4); Lymphocytes Absolute Auto 1.2 X10*3/uL (1.2-4.9); Lymphocytes Absolute Auto 1.3 X10*3/uL (1.2-4.9); Lymphocytes Percent Auto 22.6 % (20-40); Mean Corpuscular HGB Conc 36.1 g/dl (31.0-36.0); Mean Corpuscular HGB Conc 36.4 g/dl (31.0-36.0); Mean Corpuscular Hemoglobin 31.3 pg (27.0-33.0); Mean Corpuscular Hemoglobin 31.5 pg (27.0-33.0); Mean Corpuscular Volume 86.5 fL (80.0-98.0); Mean Platelet Volume 8.6 fL (9.4-12.4); Mean Platelet Volume 8.7 fL (9.4-12.4); Monocytes Absolute Auto 0.4 X10*3/uL (0.1-1.2); Monocytes Absolute Auto 0.5 X10*3/uL (0.1-1.2); Monocytes Percent Auto 7.5 % (2-11); Neutrophils Absolute Auto 3.8 x10*3/uL (2.0-8.3); Neutrophils Percent Auto 67.1 % (45-73); Neutrophils Percent Auto 67.5 % (45-73); Platelet Count 164 X10*3/uL (160-400); Platelet Count 169 X10*3/uL (160-400); Red Cell Distribution Width 11.8 % (11.0-16.0); White Blood Count 5.6 X10*3/uL (4.8-10.8)
[2024-01-05 11:45] LABS: VBG Base Excess 0.5 mmol/L; VBG HCO3 24 mmol/L (22-26); VBG pCO2 39 mmHg; VBG pH 7.41 (7.32-7.43); VBG pO2 92 mmHg
[2024-01-05 11:47] LABS: Venous Blood Gas Refer to POC result
[2024-01-05 11:51] LABS: Beta-Hydroxybutyrate 0.14 mmol/L (0.02-0.27)
[2024-01-05 11:57] LABS: Lipase 177 U/L (8-78)
[2024-01-05 12:02] LABS: Alanine Aminotransferase 25 U/L (0-40); Albumin Level 4.1 g/dL (3.5-5.0); Alkaline Phosphatase 95 U/L (39-117); Anion Gap 14 (12-20); Aspartate Amino Transferase 14 U/L (5-37); Bilirubin Total 0.5 mg/dL (0.0-1.0); Blood Urea Nitrogen 18 mg/dL (9-16); Carbon Dioxide 22 mmol/L (22-29); Chloride 104 mmol/L (96-108); Creatinine Clr Calc Pharmacy 75.4; Estimated Glomerular Filt Rate > 60; Potassium 4.1 mmol/L (3.3-5.1); Sodium 136 mmol/L (135-145)
[2024-01-05 12:08] LABS: Ethanol < 10 mg/dL; Magnesium 1.8 mg/dL (1.6-2.6); Troponin-I High Sensitivity < 2.7 ng/L (<3.5-35.0)
[2024-01-05 12:11] LABS: Bilirubin Direct 0.1 mg/dL (0.0-0.5)
[2024-01-05 12:14] LABS: Influenza A PCR NEGATIVE (Negative); Influenza B PCR NEGATIVE (Negative); Resp Syncy Virus RNA Qual PCR NEGATIVE (Negative); SARS COV2 PCR INHOUSE NEGATIVE (Negative)
[2024-01-05 12:24] LABS: Glucose Random 396 mg/dL (60-115)
[2024-01-05] MEDS: 0.9 % Sodium Chloride 1,000 ML 999 ML IV (13:13)
[2024-01-05 13:28] LABS: Triglycerides 1621 mg/dL (<150)
[2024-01-05] MEDS: Morphine Sulfate 4 MG/ML CARTRIDGE IVPUSH (13:53)
[2024-01-05] MEDS: iohexoL 350 MG/ML 100 ML INFUS..BTL IV (15:00)
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
[2024-01-05 16:04] LABS: Glucose, Whole Blood 224 mg/dL (60-115)
[2024-01-05] MEDS: Lactated Ringers 1,000 ML 200 ML IVCONT (16:13)
[2024-01-05] MEDS: Heparin Sodium,Porcine 5,000 UNIT/ML VIAL 5000 UNIT SUBCUT (16:21)
[2024-01-05] MEDS: Insulin Regular/NS 100 UNIT/100 ML PLAST..BAG IVCONT (16:22)
--- NOTE | 2024-01-05 16:39 | PHA.MEDREC ---
Pharmacy Consult ? Medication Reconciliation Pharmacy has completed the medication reconciliation. Confirmed medication with patient and patients sister. Also used med list brought in by sister. Patient reported that he took AM medications but vomited soon after.
[2024-01-05 17:34] LABS: Glucose, Whole Blood 195 mg/dL (60-115)
[2024-01-05 18:48] LABS: Glucose, Whole Blood 189 mg/dL (60-115)
[2024-01-05 19:25] LABS: Glucose, Whole Blood 173 mg/dL (60-115)
[2024-01-05 20:03] LABS: Glucose, Whole Blood 140 mg/dL (60-115)
[2024-01-05] MEDS: Dextrose 5 % and Lactated Ring 1,000 ML 200 ML IVCONT (20:09)
[2024-01-05 20:34] LABS: Anion Gap 11 (12-20); Blood Urea Nitrogen 13 mg/dL (9-16); Calcium 8.9 mg/dL (8.4-10.2); Carbon Dioxide 24 mmol/L (22-29); Chloride 109 mmol/L (96-108); Creatinine Clr Calc Pharmacy 110.8; Estimated Glomerular Filt Rate > 60; Glucose Random 138 mg/dL (60-115); Magnesium 1.9 mg/dL (1.6-2.6); Phosphorus 2.4 mg/dL (2.7-4.5); Potassium 3.5 mmol/L (3.3-5.1); Sodium 140 mmol/L (135-145)
[2024-01-05 21:07] LABS: Glucose, Whole Blood 157 mg/dL (60-115)
[2024-01-05] MEDS: Potassium Phosphate/NS 15 MMOL/250 ML PLAST..BAG 62.5 MMOL IV (21:28)
[2024-01-05 22:03] LABS: Glucose, Whole Blood 158 mg/dL (60-115)
[2024-01-05 23:08] LABS: Glucose, Whole Blood 159 mg/dL (60-115)
[2024-01-05 23:58] LABS: Glucose, Whole Blood 160 mg/dL (60-115)
[2024-01-06] VITALS (15 sets, daily range): BP systolic 107–157; BP diastolic 71–99; PULSE 63–89; RESP 11–20; TEMP 36.1–36.9; O2SAT 94–98; BMI 29.4
[2024-01-06] MEDS: Heparin Sodium,Porcine 5,000 UNIT/ML VIAL 5000 UNIT SUBCUT ×4 (00:01→23:30)
[2024-01-06] MEDS: Dextrose 5 % and Lactated Ring 1,000 ML 200 ML IVCONT ×2 (01:00→06:00)
[2024-01-06 05:45] LABS: VBG Base Excess 2.6 mmol/L; VBG HCO3 27 mmol/L (22-26); VBG pCO2 44 mmHg; VBG pO2 63 mmHg
[2024-01-06 05:45] LABS: Glucose, Whole Blood 199 mg/dL (60-115)
[2024-01-06 05:45] LABS: Glucose, Whole Blood 197 mg/dL (60-115)
[2024-01-06 05:45] LABS: Glucose, Whole Blood 175 mg/dL (60-115)
[2024-01-06 05:45] LABS: Glucose, Whole Blood 183 mg/dL (60-115)
[2024-01-06 05:49] LABS: MANUAL DIFF FLAG NO
[2024-01-06 05:51] LABS: Basophils Percent Auto 0.3 % (0-2); Eosinophils Absolute Auto 0.2 X10*3/uL (0.0-0.4); Eosinophils Percent Auto 2.3 % (0-4); Hematocrit 38.1 % (42.0-52.0); Hemoglobin 13.5 g/dl (14.0-18.0); Imm Gran Abs Auto 0.03 X10*3/uL (0.00-0.03); Imm Gran Pct Auto 0.5 % (0.0-0.4); Lymphocytes Absolute Auto 2.4 X10*3/uL (1.2-4.9); Mean Corpuscular HGB Conc 35.4 g/dl (31.0-36.0); Mean Corpuscular Volume 87.4 fL (80.0-98.0); Mean Platelet Volume 9.1 fL (9.4-12.4); Monocytes Absolute Auto 0.5 X10*3/uL (0.1-1.2); Monocytes Percent Auto 7.3 % (2-11); Neutrophils Absolute Auto 3.4 x10*3/uL (2.0-8.3); Neutrophils Percent Auto 52.6 % (45-73); Platelet Count 163 X10*3/uL (160-400); Red Blood Count 4.36 X10*6/uL (4.60-5.80); Red Cell Distribution Width 11.9 % (11.0-16.0); White Blood Count 6.4 X10*3/uL (4.8-10.8)
[2024-01-06 05:52] LABS: Alanine Aminotransferase 19 U/L (0-40); Albumin Level 3.6 g/dL (3.5-5.0); Alkaline Phosphatase 69 U/L (39-117); Anion Gap 12 (12-20); Aspartate Amino Transferase 13 U/L (5-37); Bilirubin Total 0.4 mg/dL (0.0-1.0); Blood Urea Nitrogen 10 mg/dL (9-16); Calcium 8.8 mg/dL (8.4-10.2); Carbon Dioxide 26 mmol/L (22-29); Chloride 106 mmol/L (96-108); Creatinine Clr Calc Pharmacy 130.1; Estimated Glomerular Filt Rate > 60; Glucose Random 172 mg/dL (60-115); Magnesium 1.8 mg/dL (1.6-2.6); Phosphorus 2.9 mg/dL (2.7-4.5); Potassium 3.4 mmol/L (3.3-5.1); Sodium 141 mmol/L (135-145); Triglycerides 841 mg/dL (<150)
[2024-01-06 06:13] LABS: Glucose, Whole Blood 145 mg/dL (60-115)
[2024-01-06 06:16] LABS: Appearance Urine Clear; Color Urine Yellow; Glucose Urine UA 500 mg/dL (Negative); Leukocyte Esterase Urine Negative (Negative); Nitrite Urine Negative (Negative); PH 6.5 (5.0-9.0); Specific Gravity - Urine 1.025 (1.005-1.025); Urine Blood Negative (Negative); Urine Ketones Negative (Negative); Urine Protein Negative (Neg-Trace)
[2024-01-06 07:03] LABS: Venous Blood Gas Refer to POC result
[2024-01-06] MEDS: Potassium Chloride/H20 10 MEQ/100 ML PIGGYBACK 100 MEQ IV (08:14)
[2024-01-06 08:22] LABS: Glucose, Whole Blood 161 mg/dL (60-115)
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
[2024-01-06] MEDS: Potassium Chloride Packet 20 MEQ PACKET 60 MEQ PO (09:21)
[2024-01-06] MEDS: Insulin Glargine,Hum.rec.anlog 100 UNIT/ML 10 ML VIAL 30 UNIT SUBCUT (09:22)
[2024-01-06 11:11] LABS: Glucose, Whole Blood 176 mg/dL (60-115)
[2024-01-06] MEDS: Insulin Lispro 100 UNIT/ML 3 ML VIAL SUBCUT ×2 (12:01→19:57)
[2024-01-06 12:51] LABS: Glucose, Whole Blood 276 mg/dL (60-115)
[2024-01-06 16:17] LABS: Glucose, Whole Blood 150 mg/dL (60-115)
[2024-01-06] MEDS: gemfibroziL 600 MG TABLET PO (16:56)
[2024-01-06 19:47] LABS: Glucose, Whole Blood 185 mg/dL (60-115)
[2024-01-07 04:00] VITALS: BP 142/86; PULSE 76; RESP 18; TEMP 37; O2SAT 98
[2024-01-07 06:39] LABS: MANUAL DIFF FLAG NO
[2024-01-07 07:06] LABS: Basophils Percent Auto 0.3 % (0-2); Eosinophils Absolute Auto 0.1 X10*3/uL (0.0-0.4); Eosinophils Percent Auto 1.7 % (0-4); Hematocrit 41.2 % (42.0-52.0); Hemoglobin 14.8 g/dl (14.0-18.0); Imm Gran Abs Auto 0.03 X10*3/uL (0.00-0.03); Imm Gran Pct Auto 0.4 % (0.0-0.4); Lymphocytes Absolute Auto 2.1 X10*3/uL (1.2-4.9); Lymphocytes Percent Auto 28.6 % (20-40); Mean Corpuscular HGB Conc 35.9 g/dl (31.0-36.0); Mean Corpuscular Hemoglobin 31.4 pg (27.0-33.0); Mean Corpuscular Volume 87.5 fL (80.0-98.0); Mean Platelet Volume 9.2 fL (9.4-12.4); Monocytes Absolute Auto 0.6 X10*3/uL (0.1-1.2); Monocytes Percent Auto 7.7 % (2-11); Neutrophils Absolute Auto 4.4 x10*3/uL (2.0-8.3); Neutrophils Percent Auto 61.3 % (45-73); Platelet Count 166 X10*3/uL (160-400); Red Blood Count 4.71 X10*6/uL (4.60-5.80); Red Cell Distribution Width 11.8 % (11.0-16.0); White Blood Count 7.2 X10*3/uL (4.8-10.8)
[2024-01-07 07:25] LABS: Alanine Aminotransferase 26 U/L (0-40); Albumin Level 3.9 g/dL (3.5-5.0); Alkaline Phosphatase 74 U/L (39-117); Anion Gap 11 (12-20); Aspartate Amino Transferase 14 U/L (5-37); Bilirubin Total 0.5 mg/dL (0.0-1.0); Blood Urea Nitrogen 11 mg/dL (9-16); Calcium 9.3 mg/dL (8.4-10.2); Carbon Dioxide 24 mmol/L (22-29); Chloride 105 mmol/L (96-108); Creatinine Clr Calc Pharmacy 103.1; Estimated Glomerular Filt Rate > 60; Glucose Random 178 mg/dL (60-115); Magnesium 1.9 mg/dL (1.6-2.6); Potassium 3.4 mmol/L (3.3-5.1); Sodium 137 mmol/L (135-145); Total Protein 6.9 g/dL (6.5-8.0); Triglycerides 961 mg/dL (<150)
[2024-01-07 07:39] LABS: Glucose, Whole Blood 184 mg/dL (60-115)
[2024-01-07] MEDS: Insulin Glargine,Hum.rec.anlog 100 UNIT/ML 10 ML VIAL 30 UNIT SUBCUT (07:58)
[2024-01-07] MEDS: Insulin Lispro 100 UNIT/ML 3 ML VIAL SUBCUT ×5 (07:58→22:33)
[2024-01-07] MEDS: gemfibroziL 600 MG TABLET PO ×2 (07:58→16:25)
[2024-01-07] MEDS: Heparin Sodium,Porcine 5,000 UNIT/ML VIAL 5000 UNIT SUBCUT (07:59)
[2024-01-07 08:00] VITALS: BP 132/80; PULSE 67; RESP 20; TEMP 36.1
--- NOTE | 2024-01-07 10:22 | P.CDIM_ITS ---
PROVIDER RESPONSE TEXT: To clarify, the appropriate diagnosis supported by the clinical indicators: Uncontrolled Type 2 Diabetes mellitus with hyperglycemia QUERY TEXT: PHYSICIAN'S DOCUMENTATION REQUEST Date of Query: 01/07/2024 10:14 AM EDT Patient Name: Ruy Valencia Admit Date: 01/05/2024 Dear Ben Campuzano, A review of the medical record indicates additional documentation may be needed. Please review below and update the documentation accordingly. Clinical Indicators: H&P: Assessment and plan: Uncontrolled type 2 diabetes mellitus with hyperglycemia, with long-term cu rrent use of insulin: POC glucose 276 Please clarify the following regarding the Complications of Diabetes Mellitus within the body of the Plan: Uncontrolled Type 2 Diabetes mellitus with hyperglycemia Other Other (explain) Clinically unable to determine (explain) Thank you, Emily Beverly, CCS, CDIS Use of terms such as suspected, likely, concern for, or probable (associated with a specific diagnosi s that is being evaluated, monitored, or treated as if it exists) are acceptable and can be coded in the inpatient se tting, when documented at the time of discharge. Please use your independent medical judgment in providing your response. THIS QUERY IS PART OF THE PERMANENT MEDICAL RECORD
--- NOTE | 2024-01-07 10:30 | HO.PM.IMPN ---
Subjective Subjective Date of Service: 01/07/24 Interval History: abd pain resolved, toelrating po Physical Exam Vital Signs: Vital Signs: Last Vital Signs Temp 97 F 01/07/24 08:00 Pulse 67 01/07/24 08:00 Resp 20 01/07/24 08:00 BP 132/80 01/07/24 08:00 Pulse Ox 98 01/07/24 04:00 O2 Del Method Nasal Cannula 01/07/24 08:00 O2 Flow Rate 2 01/07/24 08:00 BMI result Body Mass Index 29.4 General: AO X 3, no acute distress Resp: CTA bilateral, no accessory muscles used CVS: S1,S2,RRR GI: soft, non tender, non distended Neuro: motor grossly intact, alert Psych: appropriate affect, appropriate insight Objective Data Active Medications Atorvastatin Calcium (Atorvastatin Calcium 40 Mg Tablet) 40 mg PO DAILY [facility] Dextrose (Dextrose 50 % 25 Gm/50 Ml Syringe) 25 gm IVPUSH Q15M PRN PRN Reason: Nursing Actions in Insulin Infusion Protocol Fentanyl (Fentanyl Citrate/Pf 100 Mcg/2 Ml Vial) 50 mcg IVPUSH Q3H PRN; Protocol PRN Reason: Pain, Moderate(Pain Scale 4-6) Gemfibrozil (Gemfibrozil 600 Mg Tablet) 600 mg PO BIDAC [facility] Last Admin: 01/07/24 07:58 Dose: 600 mg Documented By: KENNETH Heparin Sodium (Porcine) (Heparin Sodium,Porcine 5,000 Unit/Ml Vial) 5,000 unit SUBCUT Q8H [facility] Last Admin: 01/07/24 07:59 Dose: 5,000 unit Documented By: KENNETH Insulin Glargine (Insulin Glargine,Hum.Rec.Anlog 100 Unit/Ml 10 Ml Vial) 30 unit SUBCUT DAILY [facility] Last Admin: 01/07/24 07:58 Dose: 30 unit Documented By: KENNETH Insulin Human Lispro (Insulin Lispro 100 Unit/Ml 3 Ml Vial) 0 unit SUBCUT QIDACHS [facility]; Protocol Last Admin: 01/07/24 07:58 Dose: 2 unit Documented By: KENNETH Labs 01/07/24 06:09 01/07/24 06:09 Labs: Laboratory Results - last 24 hr 01/06/24 01/06/24 01/06/24 11:08 12:45 16:05 MCV MCH MCHC RDW Plt Count MPV Immature Gran % (Auto) Neut % (Auto) Lymph % (Auto) [place] % (Auto) Eos % (Auto) Baso % (Auto) Lymph # (Auto) [place] # (Auto) Eos # (Auto) Baso # (Auto) Abs Immat Gran (auto) Absolute Neuts (auto) Absolute Nucleated RBC Nucleated RBC % (auto) Anion Gap Estim Creat Clear Calc Estimated GFR POC Glucose 176 H 276 H 150 H Random Glucose Calcium Phosphorus Magnesium Total Bilirubin AST ALT Alkaline Phosphatase Total Protein Albumin Triglycerides 01/06/24 01/07/24 01/07/24 19:43 06:09 07:35 MCV 87.5 MCH 31.4 MCHC 35.9 RDW 11.8 Plt Count 166 MPV 9.2 L Immature Gran % (Auto) 0.4 Neut % (Auto) 61.3 Lymph % (Auto) 28.6 [place] % (Auto) 7.7 Eos % (Auto) 1.7 Baso % (Auto) 0.3 Lymph # (Auto) 2.1 [place] # (Auto) 0.6 Eos # (Auto) 0.1 Baso # (Auto) 0.0 Abs Immat Gran (auto) 0.03 Absolute Neuts (auto) 4.4 Absolute Nucleated RBC 0.000 Nucleated RBC % (auto) 0.0 Anion Gap 11 L Estim Creat Clear Calc 103.1 Estimated GFR > 60 POC Glucose 185 H 184 H Random Glucose 178 H Calcium 9.3 Phosphorus 3.0 Magnesium 1.9 Total Bilirubin 0.5 AST 14 ALT 26 Alkaline Phosphatase 74 Total Protein 6.9 Albumin 3.9 Triglycerides 961 H Assessment and Plan (1) Hypertriglyceridemia: Status: Acute (2) Acute pancreatitis: Status: Acute Plan 43M PMH htn, hypertriglyceridemia, TBI, obesity, presented with abd pain due to pacreatitis from hyperTG, admitted to ICU, improved with insulin, now downgraded to medical floor Acute recurrent pancreatitis due to hypertriglyceridemia Now tolerating solids Continue statin and fibrate Triglycerides still above 800 Monitor Obesity Weight loss recommended htn amlodipine, lisinopril dvt prophylaxis - lovenox full code reason for continued hospitalization:TG >800 Quality Stroke Does the patient have a stroke diagnosis?: No VTE Prior VTE?: No VTE Risk Level:: Medical - moderate - high VTE Device Contraindication: Treatment Not Indicated VTE Drug Contraindication: N/A - Med Ordered
[2024-01-07 10:50] LABS: Glucose, Whole Blood 208 mg/dL (60-115)
--- NOTE | 2024-01-07 10:59 | MHC.CM.PN ---
Addendum entered by Chacha Saenz 01/07/24 13:01: HCP completed, naming sister Amber, copy in chart Original Note: IMM sent to pt.'s sister, Amber per pt.'s request, he said that he cannot remember things, he has hx of TBI. CM spoke to Mary, she is HCP and will complete form here. He lives with his mother (she is in our ED at this time). He has 17 hours a week of services from [facility], and a nurse that visits from [facility]. His sister will transport him home upon DC. CM to follow and assist as needed with DC plan.
[2024-01-07] MEDS: Enoxaparin Sodium 40 MG/0.4 ML SYRINGE SUBCUT (11:55)
--- NOTE | 2024-01-07 14:12 | MHC.RECOVRN ---
Addendum entered by Paula Perdue 01/07/24 14:12: Correction: pt declined to meet with t/w but did accept resources. Original Note: AUDIT-C Brief Intervention Pt had positive screen for unhealthy alcohol use on admission. Attempted to meet with pt to discuss alcohol use and offer resources, pt declined.
[2024-01-07 16:00] VITALS: BP 152/98; PULSE 66; RESP 20; TEMP 36.3; O2SAT 99
[2024-01-07 16:16] LABS: Glucose, Whole Blood 87 mg/dL (60-115)
[2024-01-07 19:47] VITALS: BP 144/92; PULSE 82; RESP 20; TEMP 37; O2SAT 97
[2024-01-07 21:29] LABS: Glucose, Whole Blood 232 mg/dL (60-115)
[2024-01-07 22:28] LABS: Glucose, Whole Blood 183 mg/dL (60-115)
[2024-01-07] MEDS: Atorvastatin Calcium 80 MG TABLET PO (22:30)
[2024-01-07] MEDS: Fenofibrate 160 MG TABLET PO (22:30)
[2024-01-07 23:49] VITALS: BP 125/76; PULSE 81; RESP 20; TEMP 36.5; O2SAT 97
[2024-01-08 03:30] VITALS: BP 120/82; PULSE 74; RESP 18; TEMP 36.3; O2SAT 97
[2024-01-08] MEDS: gemfibroziL 600 MG TABLET PO (06:41)
[2024-01-08 06:56] LABS: Hematocrit 43.4 % (42.0-52.0); Hemoglobin 15.6 g/dl (14.0-18.0); Mean Corpuscular HGB Conc 35.9 g/dl (31.0-36.0); Mean Corpuscular Hemoglobin 31.4 pg (27.0-33.0); Mean Corpuscular Volume 87.3 fL (80.0-98.0); Mean Platelet Volume 8.7 fL (9.4-12.4); Platelet Count 176 X10*3/uL (160-400); Red Blood Count 4.97 X10*6/uL (4.60-5.80); Red Cell Distribution Width 11.8 % (11.0-16.0); White Blood Count 6.4 X10*3/uL (4.8-10.8)
[2024-01-08 07:03] LABS: Alanine Aminotransferase 35 U/L (0-40); Alkaline Phosphatase 78 U/L (39-117); Anion Gap 12 (12-20); Aspartate Amino Transferase 12 U/L (5-37); Bilirubin Direct 0.1 mg/dL (0.0-0.5); Bilirubin Total 0.3 mg/dL (0.0-1.0); Blood Urea Nitrogen 16 mg/dL (9-16); Calcium 9.6 mg/dL (8.4-10.2); Carbon Dioxide 24 mmol/L (22-29); Chloride 104 mmol/L (96-108); Creatinine Clr Calc Pharmacy 99.7; Estimated Glomerular Filt Rate > 60; Glucose Fasting 158 mg/dL (60-99); Potassium 3.5 mmol/L (3.3-5.1); Sodium 136 mmol/L (135-145); Total Protein 7.3 g/dL (6.5-8.0); Triglycerides 1189 mg/dL (<150)
[2024-01-08 08:00] VITALS: BP 137/64; PULSE 82; RESP 19; TEMP 36.4; O2SAT 98
[2024-01-08 08:04] LABS: Glucose, Whole Blood 179 mg/dL (60-115)
[2024-01-08] MEDS: Thiamine HCL 100 MG TABLET PO (09:07)
[2024-01-08] MEDS: amLODIPine Besylate 5 MG TABLET PO (09:07)
[2024-01-08] MEDS: Insulin Glargine,Hum.rec.anlog 100 UNIT/ML 10 ML VIAL 30 UNIT SUBCUT (09:07)
[2024-01-08] MEDS: FLUoxetine HCl 20 MG CAPSULE PO (09:07)
[2024-01-08] MEDS: lisinopriL 20 MG TABLET PO (09:07)
[2024-01-08] MEDS: Folic Acid 1 MG TABLET PO (09:07)
[2024-01-08] MEDS: Insulin Lispro 100 UNIT/ML 3 ML VIAL SUBCUT ×2 (09:08→09:09)
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
--- NOTE | 2024-01-08 10:02 | MHC.CM.PN ---
Patient has been medically cleared for dc to home today, self care. Last IMM addressed yesterday.
== END 2024-01-08 11:05 | disposition home or self-care (01) | DRG 440 ==
LOC: HO.ED 13:27 → HO.EDOVER 16:04 → HO.ICU 16:11 → HO.IMC 01-06 11:24
PROVIDERS: Physician Assistant; Physician Assistant Medical; Registered Nurse Community Health; Admitting Provider Internal Medicine Pulmonary Disease; Emergency Provider Emergency Medicine Emergency Medical Services; PCP Family Medicine; Visit Provider Internal Medicine
DX: K85.80 Other acute pancreatitis without necrosis or infection (principal); E11.65 Type 2 diabetes mellitus with hyperglycemia; F17.210 Nicotine dependence, cigarettes, uncomplicated; Z71.3 Dietary counseling and surveillance; E78.1 Pure hyperglyceridemia; I10 Essential (primary) hypertension; E66.9 Obesity, unspecified; Z68.29 Body mass index [BMI] 29.0-29.9, adult; Z20.822 Contact with and (suspected) exposure to COVID-19; Z71.6 Tobacco abuse counseling; Z87.820 Personal history of traumatic brain injury; Z79.4 Long term (current) use of insulin; Z79.84 Long term (current) use of oral hypoglycemic drugs; Z79.899 Other long term (current) drug therapy
CPT/HCPCS: 0241U; 36415; 71046; 74177; 80048; 80053; 80076; 80307; 81003; 82010; 82248; 82803; 82947; 83690; 83735; 84100; 84478; 84484; 85025; 85027; 93005; 99285; J1644; J1650; J2270; J3480; J7120; Q9967

== ENCOUNTER → 2024-01-05 11:18 | Outpatient (BNV) | payer OTHER, SELFPAY | PROVIDERS: Admitting Provider Internal Medicine Pulmonary Disease; Emergency Provider Emergency Medicine Emergency Medical Services; PCP Family Medicine; Visit Provider Internal Medicine Cardiovascular Disease | DX: R07.9 Chest pain, unspecified (principal) | CPT/HCPCS: 93010 ==

== ENCOUNTER → 2024-01-05 12:05 | Outpatient (BNV) | payer OTHER, SELFPAY | PROVIDERS: Emergency Provider Emergency Medicine Emergency Medical Services; PCP Family Medicine; Visit Provider Internal Medicine Pulmonary Disease | DX: E11.65 Type 2 diabetes mellitus with hyperglycemia (principal); Z79.4 Long term (current) use of insulin; K85.90 Acute pancreatitis without necrosis or infection, unspecified; E78.1 Pure hyperglyceridemia | CPT/HCPCS: 99223; 99233 ==

== ENCOUNTER → 2024-01-05 15:43 | Outpatient (BNV) | payer OTHER, SELFPAY | PROVIDERS: Admitting Provider Internal Medicine Pulmonary Disease; Emergency Provider Emergency Medicine Emergency Medical Services; PCP Family Medicine; Visit Provider Internal Medicine | DX: E78.1 Pure hyperglyceridemia (principal); K85.20 Alcohol induced acute pancreatitis without necrosis or infection | CPT/HCPCS: 99233; 99239 ==

== ENCOUNTER 2024-02-07 10:18 | Outpatient (REF) | payer OTHER, SELFPAY ==
[2024-02-07 12:26] LABS: Estimated Average Glucose 194 mg/dL; Hemoglobin A1c % 8.4 % (<6.0)
[2024-02-07 12:55] LABS: Albumin Level 4.6 g/dL (3.5-5.0); Calcium 10.2 mg/dL (8.4-10.2)
== END 2024-02-07 10:19 | disposition home or self-care (01) ==
LOC: HO.LAB 10:18
PROVIDERS: Absent Provider Internal Medicine Endocrinology, Diabetes & Metabolism; PCP Family Medicine; Visit Provider Registered Nurse Diabetes Educator
DX: E11.65 Type 2 diabetes mellitus with hyperglycemia (principal); E83.52 Hypercalcemia; Z79.4 Long term (current) use of insulin
CPT/HCPCS: 36415; 82040; 82310; 83036; 99211

== ENCOUNTER 2024-02-07 10:18 | Outpatient (AMB) | payer OTHER, SELFPAY ==
--- NOTE | 2024-02-07 10:54 | A.OFFVIS_ITS ---
Intake Intake Visit Reasons: 30 min dm/CONFIRMED Allergies No Known Allergies Allergy (Verified 08/18/23 14:53) HPI Comprehensive Diabetes Asmnt Most Recent Diabetes Results: Hemoglobin A1c 5.5 % 06/21/19 Microalb/Creat Ratio 32.8 ug/mg cr (<30) H 05/31/23 Cholesterol 126 mg/dL (<200) 05/31/23 HDL Cholesterol 30 mg/dL (>40) L 05/31/23 Triglycerides 1189 mg/dL (<150) H 01/08/24 Creatinine 0.90 mg/dL (0.5-1.4) 01/08/24 Blood Urea Nitrogen 16 mg/dL (9-16) 01/08/24 Sodium 136 mmol/L (135-145) 01/08/24 Potassium 3.5 mmol/L (3.3-5.1) 01/08/24 Chloride 104 mmol/L (96-108) 01/08/24 Carbon Dioxide 24 mmol/L (22-29) 01/08/24 Calcium 9.6 mg/dL (8.4-10.2) 01/08/24 AST 12 U/L (5-37) 01/08/24 ALT 35 U/L (0-40) 01/08/24 Total Protein 7.3 g/dL (6.5-8.0) 01/08/24 Albumin 4.0 g/dL (3.5-5.0) 01/08/24 [facility] Medical History Uncontrolled type 2 diabetes mellitus with hyperglycemia, with long-term current use of insulin Alcohol use History of pancreatitis History of traumatic brain injury Obesity (BMI 30-39.9) Prediabetes Hypertriglyceridemia HTN (hypertension) Surgical History No pertinent past surgical history Family History Father No problems noted. Mother No problems noted. Social History Household Members: Family Household Members Other:: mother Housing: Apartment Do you presently have visiting nurse or other home services: Yes Alcohol intake: current Alcohol intake frequency: holidays/special occasions only Alcohol type: beer Comment: camera removed, pt cooperative Patient Tobacco Use Status: Current everyday Tobacco user Tobacco use type: Cigarette Cigarettes Per Day: 3 e-Cigarette/Vaping Use: Never Used Second Hand Smoke Exposure: Yes service: No Current occupational status: unemployed and disabled Current occupation: and disability Assessment & Plan Assessment & Plan (1) Uncontrolled type 2 diabetes mellitus with hyperglycemia, with long-term current use of insulin: Code(s): E11.65 - Type 2 diabetes mellitus with hyperglycemia; 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 0% Hyperglycemia:? 82% Time in Range:? 18% Average glucose for the last 2 weeks?249 mg/dL Patient did not have A1c drawn instructed after last visit, patient is this report they will go after this visit to have A1c drawn Patient reports he did not increase Lantus 40 units as instructed at last visit with tobacco prevention health educator Patient is having some postprandial hypoglycemia, he is currently taking NovoLog 26 units before meals, patient and sister deny that he is taking any correction dose of insulin when glucose is high but he is not eating. He spends his day working on bicycles, he does report that after taking bicycle rides he has experienced hypoglycemia Instructed patient how to treat hypoglycemia with rule of 15s, patient should carry glucose tabs or 4 oz of juice box with him at all times. Recommended to patient and his sister to reduce NovoLog 26 units to NovoLog 24 units, if patient knows he will be taking bike ride after lunch he can reduce NovoLog dose further to 20 units Also discussed scanning sensor more frequently to reduce gaps in glucose data Sister expressed concern regarding how difficult it is to be responsible for patient's glucose control Patient able to insert sensor independently at home without issue.? Patient has follow-up visit with Dr. River on Feb 23 2024, follow-up with tobacco prevention health educator in 1 month Patient Instructions: Lantus 40 unidades ayad vez al d?a Reduzca la dosis de NovoLog de 26 unidades antes de las comidas a 24 unidades antes de las comidas. Seguimiento con educador en diabetes en 1 mes. Coding Level of Care Code Est Pt Level 1 (32086) Diagnoses Uncontrolled type 2 diabetes mellitus with hyperglycemia, with long-term current use of insulin E11.65; Z79.4
== END 2024-02-07 10:56 | disposition home or self-care (01) ==
PROVIDERS: PCP Family Medicine; Visit Provider Registered Nurse Diabetes Educator
DX: E11.65 Type 2 diabetes mellitus with hyperglycemia (principal); Z79.4 Long term (current) use of insulin

== ENCOUNTER 2024-02-23 09:18 | Outpatient (AMB) | payer OTHER, SELFPAY ==
[2024-02-23 09:22] VITALS: BP 124/62; PULSE 85; BMI 29.9
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
[2024-02-23 09:34] LABS: Glucose, Whole Blood 288 mg/dL (60-115)
== END 2024-02-23 09:52 | disposition home or self-care (01) ==
PROVIDERS: PCP Family Medicine; Visit Provider Internal Medicine Endocrinology, Diabetes & Metabolism
DX: E78.1 Pure hyperglyceridemia (principal); E11.65 Type 2 diabetes mellitus with hyperglycemia; Z79.4 Long term (current) use of insulin
CPT/HCPCS: 99214

== ENCOUNTER → 2024-02-23 09:18 | Outpatient (BNVA) | payer OTHER, SELFPAY | PROVIDERS: PCP Family Medicine; Visit Provider Internal Medicine Endocrinology, Diabetes & Metabolism | DX: E78.1 Pure hyperglyceridemia (principal); E11.65 Type 2 diabetes mellitus with hyperglycemia; Z79.4 Long term (current) use of insulin | CPT/HCPCS: 82947; 99212 ==

== ENCOUNTER 2024-03-13 10:02 | Outpatient (AMB) | payer OTHER, SELFPAY ==
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
== END 2024-03-13 10:45 | disposition home or self-care (01) ==
PROVIDERS: PCP Family Medicine; Visit Provider Registered Nurse Diabetes Educator
DX: E11.65 Type 2 diabetes mellitus with hyperglycemia (principal); Z79.4 Long term (current) use of insulin

== ENCOUNTER → 2024-03-13 10:02 | Outpatient (BNVA) | payer OTHER, SELFPAY | PROVIDERS: PCP Family Medicine; Visit Provider Registered Nurse Diabetes Educator | DX: E11.65 Type 2 diabetes mellitus with hyperglycemia (principal); Z79.4 Long term (current) use of insulin; Z96.41 Presence of insulin pump (external) (internal); Z46.81 Encounter for fitting and adjustment of insulin pump | CPT/HCPCS: 99211 ==

== ENCOUNTER 2024-04-11 09:18 | Inpatient (IN) | payer OTHER, SELFPAY ==
[2024-04-11] VITALS (14 sets, daily range): BP systolic 145–170; BP diastolic 75–110; PULSE 58–105; RESP 14–27; TEMP 36.6–37.1; O2SAT 96–100; BMI 31.0
--- NOTE | ~2024-04-11 | CT_ITS ---
EXAMINATION: CT ABDOMEN AND PELVIS WITH CONTRAST CLINICAL INFORMATION: Epigastric abdominal pain COMPARISON: CT abdomen 01/05/2024 TECHNIQUE: Multidetector volumetric images were obtained from the superior aspect of the liver through the pubic symphysis following administration 85 mL of Omnipaque 350 intravenous contrast. Sagittal and coronal reformatted images were obtained on the technologist's workstation. Oral contrast: No This CT examination was performed using dose optimization techniques as appropriate, variously including the following: *Automated exposure control *Adjustment of mA and/or kV according to patient size (this includes techniques or standardized protocols for targeted exams where dose is matched to indication/reason for exam; i.e. extremities or head) *Use of iterative reconstruction technique DLP: 471 mGy-cm FINDINGS: LUNG BASES: The visualized lung bases are unremarkable. LIVER, GALLBLADDER, AND BILIARY TREE: The liver is normal in size, shape, and attenuation. No focal hepatic lesion or biliary ductal dilatation is present. The gallbladder is unremarkable with no evidence of radiopaque gallstones, gallbladder wall thickening, or obvious pericholecystic inflammatory changes. PANCREAS: There is mild peripancreatic edema present with fluid noted in the anterior pararenal space in front of the proximal third portion of the duodenum. The pancreas enhances uniformly. No drainable fluid collection is seen. No free intraperitoneal air is seen. Previous similar findings were present on the 01/05/2024 study, but they appear minimally increased. No pancreatic calcifications. The pancreatic duct is not dilated. SPLEEN: Unremarkable. ADRENAL GLANDS: Tiny 1 cm left adrenal nodule is unchanged. KIDNEYS AND URETERS: The kidneys are normal in size, shape, and attenuation. No hydronephrosis, hydroureter, or calculi seen. No perinephric stranding. Multiple bilateral benign Bosniak class I renal cysts are noted which require no additional imaging or follow-up. No solid renal masses are seen. BLADDER: Unremarkable. GASTROINTESTINAL TRACT: The small and large bowel are unremarkable. The appendix is unremarkable. ABDOMINAL WALL: No significant hernia is appreciated. LYMPH NODES: Again seen are some shotty retroperitoneal lymph nodes, unchanged from prior with the largest measuring 0.9 cm in the left para-aortic and aortocaval region. VASCULAR: Unremarkable. PELVIC VISCERA: The prostate and seminal vesicles are unremarkable. OSSEOUS STRUCTURES: Unremarkable. CT/CT abdomen pelvis w IV con IMPRESSION: 1. Findings consistent with acute pancreatitis. No evidence of pancreatic necrosis or drainable fluid collection. 2. Other incidental findings as described above. Fleischner guidelines were followed.
--- NOTE | ~2024-04-11 | XR_ITS ---
EXAMINATION: XR CHEST CLINICAL INFORMATION: Wheezing COMPARISON: None available. TECHNIQUE: Frontal view of the chest was obtained. FINDINGS: Aside from some mild peribronchial thickening, significant abnormality is noted involving the heart, lungs, mediastinum, bony thorax or soft tissues. XR/XR chest 1V IMPRESSION: Mild peribronchial thickening. No focal infiltrate.
--- NOTE | 2024-04-11 09:52 | ECG_ITS ---
Test Reason : EPIGASTRIC PAIN Blood Pressure : / mmHG Vent. Rate : 078 BPM Atrial Rate : 078 BPM P-R Int : 128 ms QRS Dur : 080 ms QT Int : 394 ms P-R-T Axes : 040 045 036 degrees QTc Int : 449 ms Normal sinus rhythm Normal ECG When compared with ECG of 05-JAN-2024 11:22, No significant change was found Referred By: Noa Epstein Electronically Signed By:AYAN HART
[2024-04-11 10:09] LABS: MANUAL DIFF FLAG NO
[2024-04-11 10:10] LABS: Basophils Percent Auto 0.4 % (0-2); Eosinophils Absolute Auto 0.1 X10*3/uL (0.0-0.4); Eosinophils Percent Auto 0.7 % (0-4); Hematocrit 40.5 % (42.0-52.0); Hemoglobin 15.2 g/dl (14.0-18.0); Imm Gran Abs Auto 0.03 X10*3/uL (0.00-0.03); Imm Gran Pct Auto 0.4 % (0.0-0.4); Lymphocytes Absolute Auto 1.1 X10*3/uL (1.2-4.9); Mean Corpuscular HGB Conc 37.5 g/dl (31.0-36.0); Mean Corpuscular Hemoglobin 32.5 pg (27.0-33.0); Mean Corpuscular Volume 86.5 fL (80.0-98.0); Mean Platelet Volume 8.6 fL (9.4-12.4); Monocytes Absolute Auto 0.4 X10*3/uL (0.1-1.2); Monocytes Percent Auto 5.3 % (2-11); Neutrophils Absolute Auto 6.4 x10*3/uL (2.0-8.3); Neutrophils Percent Auto 79.2 % (45-73); Platelet Count 188 X10*3/uL (160-400); Red Blood Count 4.68 X10*6/uL (4.60-5.80); Red Cell Distribution Width 11.6 % (11.0-16.0); White Blood Count 8.1 X10*3/uL (4.8-10.8)
[2024-04-11] MEDS: Famotidine/PF 20 MG/2 ML VIAL IVPUSH (10:10)
[2024-04-11] MEDS: 0.9 % Sodium Chloride 1,000 ML 999 ML IV (10:10)
[2024-04-11] MEDS: Morphine Sulfate 4 MG/ML CARTRIDGE IVPUSH (10:10)
[2024-04-11] MEDS: ondansetron HCL 4 MG/2 ML VIAL IVPUSH ×2 (10:10→22:31)
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
--- NOTE | 2024-04-11 10:41 | PC.NURSE ---
Pt comes from home for mid epigastric abd pain, nausea, and vomiting that started this morning. Pt stated he was feeling fine last night, ate dinner like normal, no triggering foods. Unable to keep food/liquids down today. Reports has 1-2 drinks per week. A/ox4, expiratory wheezes heard throughout all lobes, rhonci heard in middle lobes, S1 and S2 heard, abdomen distended and mid epigastric area tender on palpation, no rebound tenderness. vss and up to date, resting in bed quietly, significant other at bedside, call andersen within reach.
[2024-04-11 10:43] LABS: Troponin-I High Sensitivity < 2.7 ng/L (<3.5-35.0)
[2024-04-11 11:09] LABS: Influenza A PCR NEGATIVE (Negative); Influenza B PCR NEGATIVE (Negative); Resp Syncy Virus RNA Qual PCR NEGATIVE (Negative); SARS COV2 PCR INHOUSE NEGATIVE (Negative)
[2024-04-11 11:23] LABS: Alanine Aminotransferase 31 U/L (0-40); Albumin Level 4.4 g/dL (3.5-5.0); Alkaline Phosphatase 78 U/L (39-117); Anion Gap 24 (12-20); Aspartate Amino Transferase 19 U/L (5-37); Bilirubin Direct < 0.1 mg/dL (0.0-0.5); Bilirubin Total 0.4 mg/dL (0.0-1.0); Blood Urea Nitrogen 21 mg/dL (9-16); Calcium 9.8 mg/dL (8.4-10.2); Carbon Dioxide 13 mmol/L (22-29); Chloride 105 mmol/L (96-108); Creatinine Clr Calc Pharmacy 88.4; Estimated Glomerular Filt Rate > 60; Ethanol < 10 mg/dL; Glucose Random 264 mg/dL (60-115); Lipase 390 U/L (8-78); Magnesium 1.8 mg/dL (1.6-2.6); Potassium 4.2 mmol/L (3.3-5.1); Sodium 139 mmol/L (135-145); Total Protein 7.6 g/dL (6.5-8.0)
[2024-04-11 11:33] LABS: Appearance Urine Clear; Color Urine Yellow; Glucose Urine UA >=1000 mg/dL (Negative); Leukocyte Esterase Urine Negative (Negative); Nitrite Urine Negative (Negative); PH 5.5 (5.0-9.0); Specific Gravity - Urine >= 1.030 (1.005-1.025); UMIC TRIGGER UACC YES; Urine Blood Negative (Negative); Urine Ketones Trace mg/dL (Negative); Urine Protein Trace mg/dL (Neg-Trace)
[2024-04-11 11:35] LABS: Bacteria Urine None Seen (None Seen); Hyaline Casts Urine 0-2 /LPF (0-2); RBC Urine 0-2 /HPF (0-2); Squamous Epithelial Cell Urine 0-2 /HPF (0-2); WBC Urine 0-5 /HPF (0-5)
[2024-04-11 11:42] LABS: Amphetamine Screen Urine Not Detected (Not Detect); Barbiturates, Urine Not Detected (Not Detect); Benzodiazepines Screen Urine Not Detected (Not Detect); Buprenorphine Scr Not Detected (Not Detect); Cannabinoid Screen Urine Not Detected (Not Detect); Cocaine Screen Urine Not Detected (Not Detect); Fentanyl, urine Not Detected (Not Detect); Methadone Screen, Urine Not Detected (Not Detect); Opiate Screen Urine POSITIVE (Not Detect); Oxycodone Screen Urine Not Detected (Not Detect); Phencyclidine Screen Urine Not Detected (Not Detect)
[2024-04-11] MEDS: Albuterol/Iprat 2.5/0.5MG 3 ML AMPUL.NEB INHALE (12:00)
[2024-04-11] MEDS: Lactated Ringers 1,000 ML 999 ML IV (12:20)
[2024-04-11 12:39] LABS: VBG Base Excess -2.1 mmol/L; VBG HCO3 24 mmol/L (22-26); VBG pCO2 45 mmHg; VBG pH 7.32 (7.32-7.43); VBG pO2 49 mmHg
[2024-04-11 12:41] LABS: Venous Blood Gas Refer to POC result
[2024-04-11] MEDS: iohexoL 350 MG/ML 100 ML INFUS..BTL IV (12:46)
[2024-04-11 13:06] LABS: Beta-Hydroxybutyrate 0.26 mmol/L (0.02-0.27)
[2024-04-11 14:36] LABS: Lactic Acid 1.3 mmol/L (0.5-2.0)
[2024-04-11 14:41] LABS: Anion Gap 17 (12-20); Blood Urea Nitrogen 15 mg/dL (9-16); Carbon Dioxide 19 mmol/L (22-29); Chloride 106 mmol/L (96-108); Creatinine Clr Calc Pharmacy 110.8; Estimated Glomerular Filt Rate > 60; Glucose Random 222 mg/dL (60-115); Potassium 4.5 mmol/L (3.3-5.1); Sodium 137 mmol/L (135-145)
[2024-04-11 14:50] LABS: Salicylate < 5.0 mg/dL (15-30)
[2024-04-11 16:33] LABS: Triglycerides 2430 mg/dL (<150)
[2024-04-11 17:04] LABS: Glucose, Whole Blood 179 mg/dL (60-115)
[2024-04-11] MEDS: Dextrose 5 % and Lactated Ring 1,000 ML 150 ML IVCONT ×2 (17:04→23:03)
--- NOTE | 2024-04-11 17:11 | PC.NURSE ---
This RN communicated with ICU attending to clarify admitting orders. MD ordered venipuncture glucose qhour vs POC glucose qhour, provider would like POC glucose checks not venipuncture. This RN also alerted provider that patients starting POC was 179, protocol starts at 201, asked if provider would like patient to be started on D5LR started and recheck a POC in 30minutes and assess if sugar is high enough to start drip, provider agreed, will reassess at 1735. second IV line placed at this time. Pt aware he is getting admitted.
[2024-04-11 17:39] LABS: Glucose, Whole Blood 219 mg/dL (60-115)
[2024-04-11] MEDS: Heparin Sodium,Porcine 5,000 UNIT/ML VIAL 5000 UNIT SUBCUT (17:41)
[2024-04-11] MEDS: Insulin Regular/NS 100 UNIT/100 ML PLAST..BAG IVCONT (17:48)
[2024-04-11 18:30] LABS: Glucose, Whole Blood 214 mg/dL (60-115)
--- NOTE | 2024-04-11 18:36 | PHA.MEDREC ---
Pharmacy Consult ? Medication Reconciliation Pharmacy has completed the medication reconciliation. Tried talking to patient with historic interpreter but patient couldn't remember any of his medications and had us call his sister Amber and she was able to confirm his medications for us. She confirmed the patient is taking Novolog 16units three times a day, Lantus 40units before bedtime, and she confirmed he took his medications last night.
[2024-04-11 19:00] LABS: Glucose, Whole Blood 233 mg/dL (60-115)
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
[2024-04-11 20:08] LABS: Glucose, Whole Blood 217 mg/dL (60-115)
[2024-04-11 21:10] LABS: Glucose, Whole Blood 184 mg/dL (60-115)
[2024-04-11 22:11] LABS: Glucose, Whole Blood 167 mg/dL (60-115)
[2024-04-11 22:11] LABS: VBG Base Excess 2.9 mmol/L; VBG HCO3 26 mmol/L (22-26); VBG pCO2 35 mmHg; VBG pH 7.47 (7.32-7.43); VBG pO2 66 mmHg
[2024-04-11 22:20] LABS: Venous Blood Gas Refer to POC result
[2024-04-11 22:26] LABS: Anion Gap 11 (12-20); Blood Urea Nitrogen 11 mg/dL (9-16); Calcium 9.5 mg/dL (8.4-10.2); Carbon Dioxide 24 mmol/L (22-29); Chloride 108 mmol/L (96-108); Creatinine Clr Calc Pharmacy 122.6; Estimated Glomerular Filt Rate > 60; Glucose Random 165 mg/dL (60-115); Potassium 3.5 mmol/L (3.3-5.1); Sodium 139 mmol/L (135-145)
[2024-04-11] MEDS: Potassium Chloride/H20 10 MEQ/100 ML PIGGYBACK 100 MEQ IV ×2 (22:41→23:47)
[2024-04-11 23:04] LABS: Glucose, Whole Blood 117 mg/dL (60-115)
[2024-04-12] VITALS (14 sets, daily range): BP systolic 120–148; BP diastolic 74–93; PULSE 67–96; RESP 12–20; TEMP 36.2–37.1; O2SAT 95–98; BMI 31.0
[2024-04-12 00:12] LABS: Glucose, Whole Blood 127 mg/dL (60-115)
[2024-04-12] MEDS: Potassium Chloride/H20 10 MEQ/100 ML PIGGYBACK 100 MEQ IV ×2 (00:50→01:54)
[2024-04-12] MEDS: Heparin Sodium,Porcine 5,000 UNIT/ML VIAL 5000 UNIT SUBCUT ×3 (00:50→18:03)
[2024-04-12 00:57] LABS: Glucose, Whole Blood 131 mg/dL (60-115)
[2024-04-12 01:59] LABS: Glucose, Whole Blood 151 mg/dL (60-115)
[2024-04-12 03:00] LABS: Glucose, Whole Blood 136 mg/dL (60-115)
[2024-04-12 04:04] LABS: Glucose, Whole Blood 166 mg/dL (60-115)
[2024-04-12 05:04] LABS: Glucose, Whole Blood 147 mg/dL (60-115)
[2024-04-12 05:09] LABS: VBG Base Excess 1.1 mmol/L; VBG HCO3 23 mmol/L (22-26); VBG pCO2 30 mmHg; VBG pH 7.48 (7.32-7.43); VBG pO2 68 mmHg
[2024-04-12 05:10] LABS: Venous Blood Gas Refer to POC result
[2024-04-12 05:22] LABS: MANUAL DIFF FLAG NO
[2024-04-12 05:23] LABS: Basophils Percent Auto 0.3 % (0-2); Eosinophils Absolute Auto 0.1 X10*3/uL (0.0-0.4); Eosinophils Percent Auto 0.6 % (0-4); Hematocrit 34.9 % (42.0-52.0); Imm Gran Abs Auto 0.04 X10*3/uL (0.00-0.03); Imm Gran Pct Auto 0.4 % (0.0-0.4); Lymphocytes Absolute Auto 1.8 X10*3/uL (1.2-4.9); Mean Corpuscular HGB Conc 37.2 g/dl (31.0-36.0); Mean Corpuscular Hemoglobin 31.8 pg (27.0-33.0); Mean Corpuscular Volume 85.3 fL (80.0-98.0); Monocytes Absolute Auto 0.7 X10*3/uL (0.1-1.2); Monocytes Percent Auto 6.1 % (2-11); Neutrophils Percent Auto 75.6 % (45-73); Platelet Count 172 X10*3/uL (160-400); Red Blood Count 4.09 X10*6/uL (4.60-5.80); Red Cell Distribution Width 11.8 % (11.0-16.0); White Blood Count 10.6 X10*3/uL (4.8-10.8)
[2024-04-12] MEDS: Dextrose 5 % and Lactated Ring 1,000 ML 150 ML IVCONT (05:30)
[2024-04-12 05:52] LABS: Alanine Aminotransferase 24 U/L (0-40); Albumin Level 3.8 g/dL (3.5-5.0); Alkaline Phosphatase 55 U/L (39-117); Anion Gap 11 (12-20); Aspartate Amino Transferase 13 U/L (5-37); Bilirubin Total 0.5 mg/dL (0.0-1.0); Blood Urea Nitrogen 7 mg/dL (9-16); Calcium 9.2 mg/dL (8.4-10.2); Carbon Dioxide 23 mmol/L (22-29); Chloride 108 mmol/L (96-108); Creatinine Clr Calc Pharmacy 122.6; Estimated Glomerular Filt Rate > 60; Glucose Random 153 mg/dL (60-115); Lipase 168 U/L (8-78); Magnesium 1.9 mg/dL (1.6-2.6); Phosphorus 2.6 mg/dL (2.7-4.5); Potassium 3.4 mmol/L (3.3-5.1); Sodium 139 mmol/L (135-145); Total Protein 6.2 g/dL (6.5-8.0); Triglycerides 605 mg/dL (<150)
[2024-04-12 06:08] LABS: Glucose, Whole Blood 116 mg/dL (60-115)
[2024-04-12 07:11] LABS: Glucose, Whole Blood 106 mg/dL (60-115)
[2024-04-12 08:02] LABS: Glucose, Whole Blood 95 mg/dL (60-115)
[2024-04-12] MEDS: Potassium Chloride Packet 20 MEQ PACKET 40 MEQ PO (08:10)
--- NOTE | 2024-04-12 09:05 | MHC.CM.PN ---
IMM DELIVERED PT LIVES WITH MOTHER. INDEPENDENT WITH MOBILITY. PT STATES HIS SISTER IS HIS HOSPITAL STAFF PHARMACIST, UNSURE OF HOW MANY HOURS ALLOTTED. PT DECLINES TO NAME A HCP. PCP DR. PIEDRA AT [facility]. DP: PT WILL BE DOWNGRADED TO MEDICAL FLOOR FROM ICU TODAY. HOME, RESUMPTION OF HOSPITAL STAFF PHARMACIST HOURS IS THE GOAL. SISTER WILL TRANSPORT. CM WILL CONTINUE TO FOLLOW FOR ANY CHANGE TO DC PLAN/NEEDS.
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
[2024-04-12 09:55] LABS: Glucose, Whole Blood 155 mg/dL (60-115)
[2024-04-12] MEDS: gemfibroziL 600 MG TABLET PO ×2 (10:00→18:05)
[2024-04-12] MEDS: Insulin Glargine,Hum.rec.anlog 100 UNIT/ML 10 ML VIAL 30 UNIT SUBCUT (10:00)
[2024-04-12 12:54] LABS: Glucose, Whole Blood 145 mg/dL (60-115)
[2024-04-12 17:57] LABS: Glucose, Whole Blood 149 mg/dL (60-115)
[2024-04-12 19:48] LABS: Glucose, Whole Blood 221 mg/dL (60-115)
[2024-04-12] MEDS: Insulin Lispro 100 UNIT/ML 3 ML VIAL SUBCUT (20:00)
[2024-04-13 02:16] VITALS: BP 133/79; PULSE 83; RESP 16; TEMP 36.1; O2SAT 97
[2024-04-13 06:13] LABS: MANUAL DIFF FLAG NO
[2024-04-13 06:16] LABS: Basophils Percent Auto 0.4 % (0-2); Eosinophils Absolute Auto 0.2 X10*3/uL (0.0-0.4); Eosinophils Percent Auto 2.7 % (0-4); Hematocrit 39.4 % (42.0-52.0); Hemoglobin 14.3 g/dl (14.0-18.0); Imm Gran Abs Auto 0.02 X10*3/uL (0.00-0.03); Imm Gran Pct Auto 0.3 % (0.0-0.4); Lymphocytes Absolute Auto 2.2 X10*3/uL (1.2-4.9); Lymphocytes Percent Auto 31.1 % (20-40); Mean Corpuscular HGB Conc 36.3 g/dl (31.0-36.0); Mean Corpuscular Hemoglobin 31.7 pg (27.0-33.0); Mean Corpuscular Volume 87.4 fL (80.0-98.0); Mean Platelet Volume 9.3 fL (9.4-12.4); Monocytes Absolute Auto 0.6 X10*3/uL (0.1-1.2); Neutrophils Percent Auto 57.5 % (45-73); Platelet Count 166 X10*3/uL (160-400); Red Blood Count 4.51 X10*6/uL (4.60-5.80); White Blood Count 6.9 X10*3/uL (4.8-10.8)
[2024-04-13 06:31] LABS: Alanine Aminotransferase 25 U/L (0-40); Albumin Level 4.3 g/dL (3.5-5.0); Alkaline Phosphatase 62 U/L (39-117); Anion Gap 15 (12-20); Aspartate Amino Transferase 14 U/L (5-37); Bilirubin Direct 0.2 mg/dL (0.0-0.5); Bilirubin Total 0.7 mg/dL (0.0-1.0); Blood Urea Nitrogen 7 mg/dL (9-16); Calcium 10.1 mg/dL (8.4-10.2); Carbon Dioxide 23 mmol/L (22-29); Chloride 106 mmol/L (96-108); Creatinine Clr Calc Pharmacy 105.7; Estimated Glomerular Filt Rate > 60; Glucose Random 128 mg/dL (60-115); Magnesium 2.1 mg/dL (1.6-2.6); Phosphorus 3.9 mg/dL (2.7-4.5); Potassium 3.8 mmol/L (3.3-5.1); Sodium 140 mmol/L (135-145); Total Protein 7.1 g/dL (6.5-8.0); Triglycerides 524 mg/dL (<150)
[2024-04-13 07:24] VITALS: BP 130/79; PULSE 91; RESP 12; TEMP 36.6; O2SAT 96
[2024-04-13 07:30] LABS: Glucose, Whole Blood 164 mg/dL (60-115)
[2024-04-13] MEDS: Insulin Glargine,Hum.rec.anlog 100 UNIT/ML 10 ML VIAL 30 UNIT SUBCUT (08:34)
[2024-04-13] MEDS: gemfibroziL 600 MG TABLET PO (08:34)
[2024-04-13] MEDS: Heparin Sodium,Porcine 5,000 UNIT/ML VIAL 5000 UNIT SUBCUT (08:34)
[2024-04-13] MEDS: Insulin Lispro 100 UNIT/ML 3 ML VIAL SUBCUT ×2 (08:35→11:46)
[2024-04-13 11:37] LABS: Glucose, Whole Blood 156 mg/dL (60-115)
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
--- NOTE | 2024-04-13 13:08 | MHC.CM.PN ---
Patient medically cleared for dc home self care. Patient's sister will provide transportation home @ 2pm. RN aware.
== END 2024-04-13 14:23 | disposition home or self-care (01) | DRG 440 ==
LOC: HO.ED 16:48 → HO.EDOVER 16:56 → HO.ICU 17:38 → HO.S3 04-12 09:33
PROVIDERS: Nurse Practitioner Family; Physician Assistant; Student in an Organized Health Care Education/Training Program; Admitting Provider Internal Medicine Pulmonary Disease; Emergency Provider Emergency Medicine; PCP Family Medicine; Visit Provider Physician Assistant Medical
DX: K85.80 Other acute pancreatitis without necrosis or infection (principal); E11.65 Type 2 diabetes mellitus with hyperglycemia; E78.1 Pure hyperglyceridemia; E11.43 Type 2 diabetes mellitus with diabetic autonomic (poly)neuropathy; K31.84 Gastroparesis; Z20.822 Contact with and (suspected) exposure to COVID-19; Z87.820 Personal history of traumatic brain injury; V89.2XXS Person injured in unspecified motor-vehicle accident, traffic, sequela; Z79.4 Long term (current) use of insulin; Z79.84 Long term (current) use of oral hypoglycemic drugs; Z79.899 Other long term (current) drug therapy
CPT/HCPCS: 0241U; 36415; 71045; 74177; 80048; 80053; 80076; 80179; 80307; 81001; 82010; 82803; 82947; 83605; 83690; 83735; 84100; 84478; 84484; 85025; 93005; 94640; 99285; J1644; J2270; J2405; J3480; J7120; Q9967

== ENCOUNTER → 2024-04-11 09:52 | Outpatient (BNV) | payer OTHER, SELFPAY | PROVIDERS: Admitting Provider Internal Medicine Pulmonary Disease; Emergency Provider Emergency Medicine; PCP Family Medicine; Visit Provider Internal Medicine | DX: R07.9 Chest pain, unspecified (principal) | CPT/HCPCS: 93010 ==

== ENCOUNTER → 2024-04-11 16:55 | Outpatient (BNV) | payer OTHER, SELFPAY | PROVIDERS: Admitting Provider Internal Medicine Pulmonary Disease; Emergency Provider Emergency Medicine; PCP Family Medicine; Visit Provider Nurse Practitioner Family | DX: K85.80 Other acute pancreatitis without necrosis or infection (principal); E78.1 Pure hyperglyceridemia; E11.43 Type 2 diabetes mellitus with diabetic autonomic (poly)neuropathy; E11.65 Type 2 diabetes mellitus with hyperglycemia; Z79.4 Long term (current) use of insulin | CPT/HCPCS: 99223 ==

== ENCOUNTER → 2024-04-11 16:55 | Outpatient (BNV) | payer OTHER, SELFPAY | PROVIDERS: Admitting Provider Internal Medicine Pulmonary Disease; Emergency Provider Emergency Medicine; PCP Family Medicine; Visit Provider Internal Medicine Pulmonary Disease | DX: K85.80 Other acute pancreatitis without necrosis or infection (principal); E78.1 Pure hyperglyceridemia; E11.43 Type 2 diabetes mellitus with diabetic autonomic (poly)neuropathy | CPT/HCPCS: 99233 ==

== ENCOUNTER → 2024-04-11 16:55 | Outpatient (BNV) | payer OTHER, SELFPAY | PROVIDERS: Admitting Provider Internal Medicine Pulmonary Disease; Emergency Provider Emergency Medicine; PCP Family Medicine; Visit Provider Physician Assistant Medical | DX: K85.80 Other acute pancreatitis without necrosis or infection (principal); E78.1 Pure hyperglyceridemia; E11.43 Type 2 diabetes mellitus with diabetic autonomic (poly)neuropathy | CPT/HCPCS: 99239 ==

== ENCOUNTER 2024-05-04 08:48 | Outpatient (REF) | payer OTHER, SELFPAY ==
[2024-05-04 09:45] LABS: Cholesterol 135 mg/dL (<200); Glucose Fasting 190 mg/dL (60-99); HDL Cholesterol 34 mg/dL (>40); LDL Cholesterol Calculated 76 mg/dL (<100); Triglycerides 128 mg/dL (<150)
[2024-05-05 22:48] LABS: C Peptide 1.45 ng/mL (0.80-3.85)
== END 2024-05-04 08:49 | disposition home or self-care (01) ==
LOC: HO.LAB 08:48
PROVIDERS: PCP Family Medicine; Visit Provider Internal Medicine Endocrinology, Diabetes & Metabolism
DX: E11.9 Type 2 diabetes mellitus without complications (principal); E11.65 Type 2 diabetes mellitus with hyperglycemia; Z79.4 Long term (current) use of insulin
CPT/HCPCS: 36415; 80061; 82947; 84681

== ENCOUNTER 2024-05-29 11:30 | Emergency (ER) | payer OTHER, SELFPAY ==
[2024-05-29 12:00] VITALS: BP 130/87; PULSE 101; RESP 16; TEMP 37; O2SAT 96; BMI 29.7
--- NOTE | 2024-05-29 12:00 | ED_ITS ---
HPI - Eye Problem General Chief complaint: Eye Problems Stated complaint: R Eye Pain No Injury Time Seen by Provider: 05/29/24 12:48 Source: patient, family, RN notes reviewed and old records reviewed Mode of arrival: ambulatory History of Present Illness ED Provider: Noa Epstein PA-C HPI Narrative: 43-year-old Japanese-speaking male with past medical history of diabetes, gastroparesis, pancreatitis, HTN, TBI with chronic right eye blindness, presenting to ED complaining of atraumatic worsening right eye pain x1 week. Denies injury, trauma/fall, vision change, drainage from eye, foreign body sensation. patient follows with Dr. Callahan who is currently on vacation. Most of history obtained from sister due to patient's chronic cognitive delay from prior TBI. Denies nausea/vomiting, weakness Related Data Home Medications ?Medication ?Instructions ?Recorded ?Confirmed fluoxetine 20 mg capsule 20 mg PO DAILY 08/06/20 04/11/24 blood sugar diagnostic #10 ea 02/04/21 01/05/24 folic acid 1 mg tablet 1 mg PO DAILY 04/28/23 04/11/24 lisinopril 20 mg tablet 20 mg PO DAILY 04/28/23 04/11/24 thiamine HCl (vitamin B1) 100 mg 100 mg PO DAILY 04/28/23 04/11/24 tablet icosapent ethyl 1 gram capsule 2 g PO BID 06/02/23 04/11/24 (Vascepa) amlodipine 5 mg tablet 5 mg PO DAILY 01/05/24 04/11/24 atorvastatin 80 mg tablet 80 mg PO BEDTIME 01/05/24 04/11/24 insulin glargine 100 unit/mL (3 40 unit subcut BEDTIME 02/07/24 04/11/24 mL) subcutaneous pen (Lantus Solostar U-100 Insulin) Previous Rx's ?Medication ?Instructions ?Recorded lancets 33 gauge #100 ea 09/01/23 insulin aspart U-100 100 unit/mL See Rx Instructions subcut TID #60 02/23/24 (3 mL) subcutaneous pen (Novolog mL FlexPen U-100 Insulin aspart) gemfibrozil 600 mg tablet 600 mg PO BIDAC 30 days #60 tabs 04/13/24 metformin 500 mg tablet,extended 500 mg PO BID #60 tabs 04/14/24 release 24 hr atropine 1 % eye drops 1 drp ophthalmic-Right BID 7 days 05/29/24 #5 mL prednisolone acetate 1 % eye 1 drp ophthalmic-Right QID 7 days 05/29/24 drops,suspension #10 mL Allergies Allergy/AdvReac Type Severity Reaction Status Date / Time No Known Allergies Allergy Verified 05/29/24 12:01 Review of Systems Review of Systems: Constitutional: No Fever, No Chills, No Fatigue, No Malaise ENT/Mouth: No Ear Pain, No Nasal Congestion, No sore throat, No Rhinorrhea, No Swallowing Difficulty Eyes: + Eye Pain, No Swelling, No Redness, No Foreign Body, No Discharge, No Vision Changes Cardiovascular: No Chest Pain, No SOB Respiratory: No Cough, No Sputum Gastrointestinal: No Nausea, No Vomiting, No Diarrhea, No Constipation, No Abdominal pain Musculoskeletal: No joint pain, No Myalgias, No Joint Swelling Skin: No Skin Lesions, No rash Neuro: No Weakness, No Numbness, No Paresthesias, No Loss of Consciousness, No Dizziness, + Headache Yes all other systems are reviewed and are negative Constitutional: Constitutional: Reports as per [facility] Past Medical History Attestation statement: The following information was validated with the patient. Source: old records reviewed Medical History Diabetes mellitus with gastroparesis Uncontrolled type 2 diabetes mellitus with hyperglycemia, with long-term current use of insulin Alcohol use History of pancreatitis History of traumatic brain injury Obesity (BMI 30-39.9) Prediabetes Hypertriglyceridemia HTN (hypertension) Surgical History No pertinent past surgical history Family History Family History Father No problems noted. Mother No problems noted. 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) Alcohol intake: current Alcohol intake frequency: holidays/special occasions only Alcohol type: beer Comment: camera removed, pt cooperative Patient Tobacco Use Status: Never used Tobacco Tobacco use type: Cigarette Cigarettes Per Day: 3 e-Cigarette/Vaping Use: Never Used Second Hand Smoke Exposure: Yes Advance Directives: Yes Advance Directives on File: Yes Advance Directives Date on File: 01/10/24 service: No Current occupational status: unemployed and disabled Current occupation: and disability Physical Exam Vital Signs: Vital Signs: Last Vital Signs Temp 98.2 F 05/29/24 16:26 Pulse 93 05/29/24 16:26 Resp 16 05/29/24 16:26 BP 145/90 H 05/29/24 16:26 Pulse Ox 99 05/29/24 16:26 O2 Del Method Room Air 05/29/24 16:26 BMI result Body Mass Index 29.7 Const: General: cooperative, healthy appearing and no acute distress Orientation/consciousness: patient oriented x3 Limitations: no limitations HEENT: Head: Yes normal to inspection and Yes atraumatic Ears: hearing grossly normal bilaterally General nose exam: Normal external nose present Face and sinus: Yes normal facial exam Eyes: Other: Mild right-sided proptosis. Right pupillary response sluggish. No scleral or corneal injection. Fluorescein used without uptake. General: appearance normal, both eyes and all related structures Periorbital: periorbital findings normal Eyelids: Yes eyelids normal Conjunctivae: conjunctivae normal Sclerae: sclerae normal Corneas: corneas normal and fluorescein used EOM: EOMs intact bilaterally and no movement deficit Neck: Neck: Yes normal visual inspection and Yes no meningeal signs Resp: Effort & Inspection: normal respiratory effort and no respiratory distress Cardio: Rate: regular rate Skin: Rashes: no rashes Wounds: no wounds Neuro: General: patient oriented x3, tone normal, moves all extremities, no meningeal signs and no focal motor deficits Cranial nerves: Yes CN's II-XII intact bilaterally Extrem: General: Yes normal to inspection Course Course Course Narrative: This is a Rapid Medical Examination (RME) performed by Dony Dodson PA-C in triage. Full HPI, ROS, assessment and treatment plan per primary provider in the Main ED. 43 yo Japanese speaking male with hx DM, HTN, HLD, hx TBI with chronic right sided eye blindness who presents to the ER for evaluation of nontraumatic right eye pain that started 1 week ago that has been worsening. No drainage for the eye. No injury. Follow with Dr. Callahan. In triage sclera and conjunctiva are clear. His right pupil is very sluggish to respond. Unknown baseline. Plan[place] [facility] [place]. We are unable to perform proper/full eye exam in our emergency department at present, called [facility] transfer line however unable to accept transfer -spoke with multiple local ophthalmology offices in attempt to have patient evaluated properly including [facility] (vision), [facility], [place] [facility], [facility] >ALL can not evaluate patient today -spoke with [facility] transfer line, unable to accept patient -spoke with [facility] transfer line, awaiting call back [phone]--spoke with older adult social work specialist Dr. Munson from [facility]. States patient can develop inflammation in blind eye and calcification which can be very painful. States pressures are not necessary in blind eye. Recommended starting patient on prednisolone acetate 1% 1 drop 4 times daily and atropine 1% 1 drop 2 times daily and he can see patient in the office on Wednesday in [place]. Office #[phone] Medications Administered Discontinued Medications Generic Name Dose Route Start Last Admin Trade Name Nila PRN Reason Stop Dose Admin Fluorescein Sodium 1 strip 05/29/24 12:52 05/29/24 13:07 Fluorescein Sodium Strip EYE-RIGHT 05/29/24 12:53 1 strip ONCE ONE Administration Tetracaine HCl 1 drop 05/29/24 12:52 05/29/24 13:07 Tetracaine Hcl/Pf 0.5% Oph Catherine 4 Ml Drops EYE-RIGHT 05/29/24 12:53 1 drop ONCE ONE Administration Medical Decision Making Medical Decision Making MDM Narrative: 43-year-old Japanese-speaking male with past medical history of diabetes, gastroparesis, pancreatitis, HTN, TBI with chronic right eye blindness, pr esenting to ED complaining of atraumatic worsening right eye pain x1 week. On exam mildly tachycardic, NAD, nontoxic appearing, physical exam as noted above with mild right-sided proptosis and sluggish pupillary response. Fluorescein use without uptake. Visual acuity 20 50 to left eye, unable to see anything in the right eye (chronically). Concern for acute glaucoma vs ?mass. lower concern for ICH. No evidence of corneal abrasion/ulceration. No evidence of conjunctivitis/iritis. Plan: Visual acuity, fluorescein staining * we do not have an active working Velasquez-Pen in our emergency department* We also have no ophthalmology coverage at this time. Please refer to course for remaining clinical decision making, interpretation of labs/imaging results, and discussions with consultants and/or family members. Differential Diagnosis Differential Diagnoses: The differential diagnosis associated with the presentation includes As above Admission/Observation Consideration of admission/observation: Escalation of care including admission/observation considered Consult Healthcare Provider Management of the patient was discussed with: Automobile Technician Independent Historian Clinical information obtained from an independent historian. History obtained from or confirmed by: Other (Sister) External Record Review External record reviewed: Inpatient record, Office record, Outpatient record, Prior outpatient labs, Prior outpatient radiology, Primary care record and Outside ED record Tests considered The following testing was considered but not selected: As above Prescription Management I considered prescription management with: Pain Medication and Other Critical Care Time Critical Care Time Critical Care Time: Yes Total Critical Care Time: 75 Attestation: I have personally provided critical care time exclusive of time spent on separately billable procedures. Time includes review of lab data, radiology results, discussion with consultants, and monitoring for potential decompensation. Intervention performed as documented. Discharge Plan Discharge Clinical Impression: Acute eye pain Patient Disposition: Home, Self-Care Instructions: Eye Pain (ED) Additional Instructions: Please start using prescribed drops You need to follow-up with ophthalmology on Wednesday in [place]. The office #[phone] Please ask them at their location If symptoms persist or worsen, pain becomes unbearable, patient has vomiting or weakness return to the ED Prescriptions: New prednisolone acetate 1 % drops,suspension 1 drp ophthalmic-Right QID 7 Days Qty: 10 0RF atropine 1 % drops 1 drp ophthalmic-Right BID 7 Days Qty: 5 0RF No Action (DME) lancets 33 gauge misc See Rx Instructions Not Applicable BID Qty: 100 0RF Rx Instructions: As directed insulin glargine [Lantus Solostar U-100 Insulin] 100 unit/mL (3 mL) insulin pen 40 unit subcut BEDTIME metformin 500 mg tablet extended release 24 hr 500 mg PO BID Qty: 60 5RF fluoxetine 20 mg Capsule 20 mg PO DAILY lisinopril 20 mg tablet 20 mg PO DAILY thiamine HCl (vitamin B1) 100 mg tablet 100 mg PO DAILY folic acid 1 mg tablet 1 mg PO DAILY atorvastatin 80 mg tablet 80 mg PO BEDTIME amlodipine 5 mg tablet 5 mg PO DAILY gemfibrozil 600 mg Tablet 600 mg PO BIDAC 30 Days Qty: 60 0RF (DME) blood sugar diagnostic Strip See Rx Instructions Not Applicable BID Qty: 10 Rx Instructions: As directed insulin aspart U-100 [Novolog FlexPen U-100 Insulin] 100 unit/mL (3 mL) insulin pen See Rx Instructions subcut TID Qty: 60 4RF Rx Instructions: 16 units in the Morning, Afternoon and Night; ADMINISTER BEFORE DINNER icosapent ethyl [Vascepa] 1 gram capsule 2 g PO BID Referrals: Clayton Srivastava MD [Physician] - 2 days (CALL [phone]) Print Language: Japanese
[2024-05-29] MEDS: Fluorescein Sodium STRIP 1 STRIP EYE-RIGHT (13:07)
[2024-05-29] MEDS: Tetracaine HCl/PF 0.5% Oph Sol 4 ML DROPS 1 DROP EYE-RIGHT (13:07)
[2024-05-29 14:36] VITALS: BP 135/88; PULSE 90; RESP 20; TEMP 36.9; O2SAT 98
[2024-05-29 16:26] VITALS: BP 145/90; PULSE 93; RESP 16; TEMP 36.8; O2SAT 99
[2024-05-29 17:33] VITALS: BP 145/90; PULSE 93; RESP 16; TEMP 36.8; O2SAT 99
== END 2024-05-29 17:33 | disposition home or self-care (01) ==
PROVIDERS: Emergency Provider Emergency Medicine; PCP Family Medicine
DX: H57.11 Ocular pain, right eye (principal); R51.9 Headache, unspecified; R00.0 Tachycardia, unspecified; E11.9 Type 2 diabetes mellitus without complications; I10 Essential (primary) hypertension; E78.5 Hyperlipidemia, unspecified; Z87.820 Personal history of traumatic brain injury; Z79.4 Long term (current) use of insulin; Z79.84 Long term (current) use of oral hypoglycemic drugs; Z79.02 Long term (current) use of antithrombotics/antiplatelets; Z79.899 Other long term (current) drug therapy
CPT/HCPCS: 99283

== ENCOUNTER 2024-07-12 09:39 | Outpatient (AMB) | payer OTHER, SELFPAY ==
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
[2024-07-12 09:44] VITALS: BP 128/70; PULSE 98; BMI 29.1
[2024-07-12 09:58] LABS: Glucose, Whole Blood 277 mg/dL (60-115)
== END 2024-07-12 10:17 | disposition home or self-care (01) ==
PROVIDERS: PCP Family Medicine; Visit Provider Nurse Practitioner Adult Health
DX: E11.43 Type 2 diabetes mellitus with diabetic autonomic (poly)neuropathy (principal); K31.84 Gastroparesis; E78.1 Pure hyperglyceridemia
CPT/HCPCS: 99214; G2211

== ENCOUNTER → 2024-07-12 09:39 | Outpatient (BNVA) | payer OTHER, SELFPAY | PROVIDERS: PCP Family Medicine; Visit Provider Nurse Practitioner Adult Health | DX: E11.43 Type 2 diabetes mellitus with diabetic autonomic (poly)neuropathy (principal); E78.1 Pure hyperglyceridemia; K31.84 Gastroparesis | CPT/HCPCS: 82947; 83036; 99212 ==

== ENCOUNTER 2024-10-16 13:56 | Inpatient (IN) | payer OTHER, SELFPAY ==
[2024-10-16] VITALS (8 sets, daily range): BP systolic 159–177; BP diastolic 84–107; PULSE 67–79; RESP 12–18; TEMP 36.5–37.1; O2SAT 94–99; BMI 29.6
--- NOTE | ~2024-10-16 | CT_ITS ---
CLINICAL HISTORY: epigastric pain hx of pancreatitis CT of the abdomen and pelvis utilizing intravenous contrast. Comparison 04/11/2024. Findings: There is fatty infiltration of the liver. The gallbladder is unremarkable. No hydronephrosis. The spleen is unremarkable. There is peripancreatic edema and ill-defined fluid consistent with acute pancreatitis. There is also unchanged atrophy of the pancreatic tail. No abdominal aortic aneurysm. There is mild atherosclerotic plaque. There is mild retroperitoneal adenopathy slightly increased from previous. No diverticulitis. Normal appendix. No bowel obstruction. Mild bladder wall thickening is likely incidental. There is advanced facet disease in the lower lumbar spine. Impression: Findings of acute pancreatitis. In the pancreatic head there is a mildly hypodense ill-defined 1.4 cm nodular area not seen previously that is indeterminate recommend follow-up to exclude a subtle mass. Mild retroperitoneal adenopathy is likely incidental but mildly increased from previous recommend follow-up and 2-3 months. Other findings as above. This document has been electronically signed by: Sagar Vazquez MD on 10/16/2024 18:27:25
--- NOTE | 2024-10-16 14:30 | PC.NURSE ---
Arrived via ems from home with complaints of sudden onset abdominal pain about 45 minutes prior to arrival. Patient reports hx of same symptoms but does not recall why. States he is forgetful. Reports is a diabetic but does not know if he took any insulin this morning. Reports lives with mother and drinks every other weekend.
[2024-10-16 14:32] LABS: Glucose, Whole Blood 381 mg/dL (60-115)
[2024-10-16 14:34] LABS: MANUAL DIFF FLAG NO
[2024-10-16 14:45] LABS: Basophils Percent Auto 0.2 % (0-2); Eosinophils Absolute Auto 0.1 X10*3/uL (0.0-0.4); Eosinophils Percent Auto 0.4 % (0-4); Hematocrit 41.9 % (42.0-52.0); Hemoglobin 15.4 g/dl (14.0-18.0); Imm Gran Abs Auto 0.04 X10*3/uL (0.00-0.03); Imm Gran Pct Auto 0.3 % (0.0-0.4); Lymphocytes Absolute Auto 1.1 X10*3/uL (1.2-4.9); Lymphocytes Percent Auto 9.1 % (20-40); Mean Corpuscular HGB Conc 36.8 g/dl (31.0-36.0); Mean Corpuscular Hemoglobin 31.1 pg (27.0-33.0); Mean Corpuscular Volume 84.6 fL (80.0-98.0); Mean Platelet Volume 8.6 fL (9.4-12.4); Monocytes Absolute Auto 0.7 X10*3/uL (0.1-1.2); Monocytes Percent Auto 5.4 % (2-11); Neutrophils Absolute Auto 10.4 x10*3/uL (2.0-8.3); Neutrophils Percent Auto 84.6 % (45-73); Platelet Count 191 X10*3/uL (160-400); Red Blood Count 4.95 X10*6/uL (4.60-5.80); Red Cell Distribution Width 11.9 % (11.0-16.0); White Blood Count 12.3 X10*3/uL (4.8-10.8)
[2024-10-16 15:00] LABS: Alanine Aminotransferase 22 U/L (0-40); Albumin Level 4.4 g/dL (3.5-5.0); Alkaline Phosphatase 103 U/L (39-117); Anion Gap 17 (12-20); Bilirubin Direct 0.1 mg/dL (0.0-0.5); Bilirubin Total 0.5 mg/dL (0.0-1.0); Blood Urea Nitrogen 18 mg/dL (9-16); Calcium 10.1 mg/dL (8.4-10.2); Carbon Dioxide 21 mmol/L (22-29); Chloride 104 mmol/L (96-108); Creatinine Clr Calc Pharmacy 89.9; Estimated Glomerular Filt Rate > 60; Potassium 4.4 mmol/L (3.3-5.1); Sodium 138 mmol/L (135-145); Total Protein 7.4 g/dL (6.5-8.0)
[2024-10-16 15:02] LABS: Glucose Random 406 mg/dL (60-115)
--- NOTE | 2024-10-16 15:40 | PC.NURSE ---
Pts sister Amber called, verified with patient ok to give sister update, pt verbalized it was ok. Sister given update. Dr. Vivar aware of BS of 405.
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
[2024-10-16 16:24] LABS: Aspartate Amino Transferase 15 U/L (5-37); Lipase 2141 U/L (8-78)
[2024-10-16] MEDS: ondansetron HCL 4 MG/2 ML VIAL IVPUSH ×2 (16:26→22:47)
[2024-10-16] MEDS: HYDROmorphone HCl 1 MG/ML SYRINGE IVPUSH (16:27)
[2024-10-16] MEDS: Insulin Regular, Human 100 UNIT/ML 10 ML VIAL IVPUSH (16:27)
[2024-10-16] MEDS: Lactated Ringers 1,000 ML 999 ML IV (16:28)
--- NOTE | 2024-10-16 16:31 | ECG_ITS ---
Test Reason : ABD PAIN Blood Pressure : / mmHG Vent. Rate : 078 BPM Atrial Rate : 078 BPM P-R Int : 128 ms QRS Dur : 080 ms QT Int : 398 ms P-R-T Axes : 036 035 015 degrees QTc Int : 453 ms Normal sinus rhythm Normal ECG When compared with ECG of 11-APR-2024 10:01, Nonspecific T wave abnormality now evident in Anterior leads Referred By: Arlin Menendez Electronically Signed By:AYAN HART
[2024-10-16 16:38] LABS: VBG Base Excess 1.8 mmol/L; VBG HCO3 27 mmol/L (22-26); VBG pCO2 45 mmHg; VBG pH 7.38 (7.32-7.43); VBG pO2 42 mmHg
[2024-10-16 16:38] LABS: Venous Blood Gas Refer to POC result
[2024-10-16 16:41] LABS: Triglycerides 1250 mg/dL (<150)
[2024-10-16 16:44] LABS: Lactate Dehydrogenase 121 U/L (118-273)
[2024-10-16 16:54] LABS: Beta-Hydroxybutyrate 0.79 mmol/L (0.02-0.27)
[2024-10-16 17:09] LABS: Glucose, Whole Blood 312 mg/dL (60-115)
--- OUTSIDE RECORDS SUMMARY | 2024-10-16 17:10 | XMS_ITS | Data Portability ---
Author Organization [facility], [employer] Address [address] [place] [phone] Care Team Providers Care Web Interface Developer Name Role Phone [facility] Referring Provider [facility] Primary Care Provider VELVET PAYNE Primary Care Provider Assessment Encounter Date Assessment Date Assessment LastModified by Organization Details LastModified Time 12/18/2022 12/18/2022 service called for abd pain foud 41 yom hx TBI c/o increasing abd pain reportedly d/t pancreatitis attempted pain control at home with PO oxycodone however, unable to tolerate pain 7/10 and rising, no PO intake denies fevers, chills VS; note afebrile, tachycardiac c/w pain #Acute Pancreatitis Insufficient pain control at home, requires IV opioids, IVF, frequent monitoring -refer ED [email or web address] Not available 12/18/2022 22:33:04 Plan of Treatment Reminders Order Date Submit Date Provider Last Modified By Organization Details Last Modified Time Details Appointments None record ed. Lab None record ed. Referral None record ed. Procedures None record ed. Surgeries None record ed. Imaging None record ed. Medication Orders None record ed. Patient TargetsNo targets recorded. Patient InstructionsNo instructions recorded. Reason for Referral None Reported. Medical Equipment None Reported. Medications Name Sig Start Date Stop Date Status Note LastModified by Organization Details LastModified Time medbox status USE DIRECTED active Not Available Not Available No t Available atorvastatin 80 mg tablet TAKE 1 TABLET BY MOUTH AT BEDTIME active Not Available Not Available No t Available thiamine HCl (vitamin B1) 100 mg tablet TAKE 1 TABLET BY MOUTH EVERY MORNING active Not Available Not Available No t Available amlodipine 5 mg tablet TAKE 1 TABLET BY MOUTH EVERY MORNING active Not Available Not Available No t Available amlodipine 10 mg tablet TAKE 1 TABLET BY MOUTH EVERY MORNING active Not Available Not Available No t Available lisinopril 10 mg tablet TAKE 1 TABLET BY MOUTH EVERY MORNING active Not Available Not Available No t Available omeprazole 20 mg capsule,delaye d release TAKE 1 CAPSULE BY MOUTH EVERY DAY active Not Available Not Available No t Available folic acid 1 mg tablet TAKE 1 TABLET BY MOUTH EVERY MORNING active Not Available Not Available No t Available lisinopril 5 mg tablet TAKE 1 TABLET BY MOUTH EVERY EVENING active Not Available Not Available No t Available ondansetron 4 mg disintegrating tablet DISSOLVE 1 TABLET ON TONGUE EVERY 8 HOURS NEEDED FOR NAUSEA AND VOMITING active Not Available Not Available No t Available fluoxetine 20 mg capsule TAKE 1 CAPSULE BY MOUTH EVERY MORNING active Not Available Not Available No t Available metformin ER 500 mg tablet,extende d release 24 hr TAKE 1 TABLET BY MOUTH EVERY EVENING WITH FOOD active Not Available Not Available No t Available oxycodone 5 mg tablet active Not Available Not Available Not Available fenofibrate 160 mg tablet TAKE 1 TABLET BY MOUTH EVERY EVENING active Not Available Not Available No t Available Fish Oil 340 mg-1,000 mg capsule TAKE 2 CAPSULES BY MOUTH TWICE DAILY IN THE MORNING AND EVENING active Not Available Not Available No t Available FreeStyle Lite Strips TEST BLOOD SUGAR TWICE DAILY active Not Available Not Available No t Available FreeStyle Filer Lite kit USE TO TEST BLOOD SUGAR TWICE DAILY active Not Available Not Available No t Available blood pressure test kit-large cuff USE DIRECTED active Not Available Not Available No t Available omega-3 300 mg-dha 120 mg-epa 180 mg-fish oil 1,000 mg capsule TAKE 2 CAPSULES BY MOUTH TWICE DAILY IN THE MORNING AND EVENING active Not Available Not Available No t Available Vitals Date Recorded Heart rate Respiratory rate Oxygen saturation Oxygen saturation in Arterial blood by Pulse oximetry Body height Body weight Body temperature Systolic blood pressure Diastolic blood pressure Provider Name and Address Organization Details Last Updated DateTime 4 90 /min 16 /min 97 % 97 % 162.56 cm 32945.6 g 97.6 [degF] 137 mm[Hg] 89 mm[Hg] Not Available [facility] 4 11:36:44 Date Recorded Respiratory rate Oxygen saturation Oxygen saturation in Arterial blood by Pulse oximetry Body temperature Heart rate Body temperature Heart rate Oxygen saturation Oxygen saturation in Arterial blood by Pulse oximetry Respiratory rate Systolic blood pressure Diastolic blood pressure Systolic blood pressure Diastolic blood pressure Provider Name and Address Organization Details Last Updated DateTime 3 20 /min 94 % 94 % 99.2 [degF] 123 /min 99.2 [degF] 123 /min 94 % 94 % 20 /min 116 mm[Hg] 72 mm[Hg] 116 mm[Hg] 72 mm[Hg] Not Available [facility] 18:52:45 Social History None recorded. Functional Status None recorded. Mental Status None recorded. Family History Nothing Reported. Medical History No medical history recorded. Past Encounters Encounter ID Performer Location Encounter Start Date Encounter Closed Date Diagnosis/Indication Diagnosis SNOMED-CT Code Diagnosis ICD10 Code Diagnosis Note [id number] Jacklyn Lee MD [facility] [address] [place] [id number] 12/18/2022 17:53:32 12/21/2022 10:48:12 Acute pancreatitis 046621027 K85.90 [id number] Alex Almeida MD [facility] [address] [place] [id number] 12/13/2023 11:36:28 12/13/2023 18:56:25 Peripheral venous insufficiency [id number] I87.2 This 42-year-ol d male with new onset type 2 diabetes on Novolog 10 u tid has had dusky feet recently with no pain. I reviewed images of his feet and it appears he has some venous insufficie ncy. I recommende d compressio n and elevation. His glucose has also been close to 300 recently. I recommende d that he increase his Novolog to 15 u tid. He will contact his PCP for further instructio ns. The patient agreed with this plan. Health Concerns Section Related Observation LastModified by Organization Detai ls LastModified Time None Recorded Concern Status LastModified by Organization Details LastModified Time None Recorded Advance Directives Directive None Recorded Payers Encounter Date Sequence Insurance Name Policy Number Policy Jackson Covered Member ID Jackson Member ID Guarantor Name 12/18/2022 1 [facility] - DOS PRIOR TO 2023 - DUAL ELIGIBLE (MEDICARE REPLACEMENT/ADV ANTAGE - HMO) Ruy Valencia [id number] Ruy Valencia 12/13/2023 1 [facility] - DOS ON OR AFTER 2023 - DUAL ELIGIBLE - DETENTION OPTIONS AND ONE CARE (MEDICARE REPLACEMENT/ADV ANTAGE - HMO) Ruy Valencia [id number] Ruy Valencia Notes Date Note Type Note Provider Name and Address Organization Details Recorded Time 12/18/2022 text/html HPI: Patient with history of TBI. Sister responsible for healthcare decisions per family. Patient in ED yesterday with pain and diagnosed with symptoms consistent with Pancreatitis. WBC 11.7 Treated with Morphine felt better and wanted to go home. Advised to return for increased symptoms. Patient vomited upon returning home. Has been laying in bed all day and taking Oxycodone as ordered q 8 hours. Pain is unchanged and po intake poor. ................... ................... ................... ................... ................... ................... ................... ........ CRC Nursing Assessment: Comments: CRC RN did not require any additional information to process this visit. ................... ................... ................... ................... ................... ................... ................... ........ Margin Analyst Note From Richa Kim: Community Margin Analyst Ned Kim [id number] dispatched to a red for a 41 yom C/O pancreatitis. Upon arrival, the pt was sitting on the couch, awake and alert, oriented to baseline w/ a TBI, in obvious pain. Family/ceramic coater machine on scene stated that the pt had been diagnosed w/ pancreatitis some time ago, and had a flare up starting 2 days prior. They sought tx in the local ED, where he was given fluids and pain mgmt, as well as a rx for 5 mg oxycodone X8 hrs. Pt was unable to tolerate food and any liquids other than water, and he stated his pain was 7/10 w/ oxycodone. [facility] was consulted; pt and ceramic coater machine/family were informed of the causes and treatment of pancreatitis, and that IV pain mgmt was recommended. Pt and ceramic coater machine were offered IV fluids in the home, but declined, stating that they were going to the ED [facility]. Pt and family were educated and red flags were discussed. ................... ................... ................... ................... ................... ................... ................... ........ Disposition: Fulfilled Jacklyn Lee MD [address] [place] [address],[address], [place], [phone], [facility] 12/18/2022 22:33:18 12/13/2023 text/html HPI: History of TBI, Auditory hallucinations, memory impairment, smoker, pancreatitis, alcohol use. Patient noted last night with discoloration of all toenail beds. Now only great toes dusky. No acute pain. BG this morning 265 per patient. ................... ................... ................... ................... ................... ................... ................... ........ CRC Nurse Triage Notes (Isaura Lanza): Comments: CRC RN DID NOT NEED FURTHER INFO Alex Almeida MD [address] [place] [address],[address], [place], [phone], [facility] 12/13/2023 11:43:29
[2024-10-16] MEDS: Insulin Regular/NS 100 UNIT/100 ML PLAST..BAG 7 UNIT IVCONT (17:16)
[2024-10-16] MEDS: iohexoL 350 MG/ML 100 ML INFUS..BTL 85 ML IV (17:43)
[2024-10-16 18:19] LABS: Glucose, Whole Blood 292 mg/dL (60-115)
[2024-10-16 19:13] LABS: Glucose, Whole Blood 302 mg/dL (60-115)
--- NOTE | 2024-10-16 19:14 | PC.NURSE ---
pt current blood glucose is at 306, provider Gemma made aware, to keep the insulin drip at current infusion rate of 10.5ml/hr and recheck blood glucose in one hour
[2024-10-16 20:08] LABS: Glucose, Whole Blood 207 mg/dL (60-115)
[2024-10-16] MEDS: Dextrose 5 % and Lactated Ring 1,000 ML 100 ML IVCONT (20:28)
--- NOTE | 2024-10-16 20:28 | PC.NURSE ---
PER DR. Menenedz hold insulin drip for 30mins, recheck poc and start fluids.
[2024-10-16] MEDS: Heparin Sodium,Porcine 5,000 UNIT/ML VIAL 5000 UNIT SUBCUT (20:36)
[2024-10-16 20:49] LABS: Glucose, Whole Blood 235 mg/dL (60-115)
[2024-10-16 21:03] LABS: Glucose, Whole Blood 268 mg/dL (60-115)
--- NOTE | 2024-10-16 21:05 | PC.NURSE ---
Per Dr. Menendez start insulin drip at 7units. Recheck poc in hour, Also to ICU provider Sharon aware of order okay with the plan of care.
--- NOTE | 2024-10-16 21:27 | PHA.MEDREC ---
Addendum entered by Beth Claros RPh 10/16/24 21:48: reviewed by [facility]. Original Note: Pharmacy Consult ? Medication Reconciliation Pharmacy has completed the medication reconciliation. Went to speak with patient and he was asleep. I called and spoke to patients sister Amber and she was able to confirm the patients medications. She confirmed his Gemfibrozil 600mg tab twice daily before meals. She confirmed his Novolog and confirmed he does it via a sliding scale three times a day before meals. She also confirmed his Lantus and confirmed hes been injecting 40 units at bedtime. She confirmed he took all his morning medications this morning and everything else yesterday.
--- NOTE | 2024-10-16 21:27 | PC.NURSE ---
Report given to bladder cleaner Ginny, pt being transferred over by this RN and BANDAR Schultz
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
[2024-10-16 22:07] LABS: Glucose, Whole Blood 260 mg/dL (60-115)
[2024-10-16] MEDS: Melatonin 3 MG TABLET 6 MG PO (22:20)
[2024-10-16] MEDS: Lactated Ringers 1,000 ML 50 ML IVCONT (23:00)
[2024-10-16 23:11] LABS: Glucose, Whole Blood 224 mg/dL (60-115)
[2024-10-17] VITALS (23 sets, daily range): BP systolic 140–179; BP diastolic 74–103; PULSE 69–102; RESP 11–22; TEMP 36.8–37.2; O2SAT 92–97; BMI 29.9
[2024-10-17 00:19] LABS: Glucose, Whole Blood 238 mg/dL (60-115)
[2024-10-17 01:12] LABS: Glucose, Whole Blood 169 mg/dL (60-115)
[2024-10-17 02:22] LABS: Glucose, Whole Blood 168 mg/dL (60-115)
[2024-10-17 03:16] LABS: Glucose, Whole Blood 104 mg/dL (60-115)
[2024-10-17] MEDS: Heparin Sodium,Porcine 5,000 UNIT/ML VIAL 5000 UNIT SUBCUT ×3 (03:22→20:54)
[2024-10-17] MEDS: ondansetron HCL 4 MG/2 ML VIAL IVPUSH ×2 (03:22→10:30)
[2024-10-17 04:51] LABS: Glucose, Whole Blood 116 mg/dL (60-115)
[2024-10-17 06:21] LABS: Basophils Percent Auto 0.1 % (0-2); Eosinophils Percent Auto 0.1 % (0-4); Hematocrit 43.1 % (42.0-52.0); Hemoglobin 15.5 g/dl (14.0-18.0); Imm Gran Abs Auto 0.08 X10*3/uL (0.00-0.03); Imm Gran Pct Auto 0.5 % (0.0-0.4); Lymphocytes Absolute Auto 0.4 X10*3/uL (1.2-4.9); Lymphocytes Percent Auto 2.8 % (20-40); MANUAL DIFF FLAG SCAN; Mean Corpuscular Hemoglobin 30.9 pg (27.0-33.0); Monocytes Absolute Auto 0.8 X10*3/uL (0.1-1.2); Monocytes Percent Auto 5.1 % (2-11); Neutrophils Absolute Auto 13.5 x10*3/uL (2.0-8.3); Neutrophils Percent Auto 91.4 % (45-73); Platelet Count 187 X10*3/uL (160-400); Red Blood Count 5.01 X10*6/uL (4.60-5.80); Red Cell Distribution Width 12.3 % (11.0-16.0); SCAN SMEAR FLAG 1; White Blood Count 14.8 X10*3/uL (4.8-10.8)
[2024-10-17 06:23] LABS: Lipase 194 U/L (8-78); Phosphorus 3.1 mg/dL (2.7-4.5)
[2024-10-17 06:26] LABS: Albumin Level 4.3 g/dL (3.5-5.0); Anion Gap 13 (12-20); Blood Urea Nitrogen 14 mg/dL (9-16); Calcium 10.1 mg/dL (8.4-10.2); Carbon Dioxide 26 mmol/L (22-29); Chloride 107 mmol/L (96-108); Creatinine Clr Calc Pharmacy 88.2; Estimated Glomerular Filt Rate > 60; Glucose Random 140 mg/dL (60-115); Magnesium 1.7 mg/dL (1.6-2.6); Potassium 3.6 mmol/L (3.3-5.1); Sodium 142 mmol/L (135-145); Triglycerides 668 mg/dL (<150)
[2024-10-17 06:36] LABS: Glucose, Whole Blood 169 mg/dL (60-115)
[2024-10-17 06:58] LABS: SLIDE REVIEW VERIFIED
[2024-10-17 07:19] LABS: Glucose, Whole Blood 165 mg/dL (60-115)
[2024-10-17] MEDS: Insulin Regular/NS 100 UNIT/100 ML PLAST..BAG IVCONT (07:59)
[2024-10-17 08:09] LABS: Glucose, Whole Blood 151 mg/dL (60-115)
[2024-10-17 09:07] LABS: Glucose, Whole Blood 126 mg/dL (60-115)
--- NOTE | 2024-10-17 09:14 | P.PNCC_ITS ---
Subjective Subjective Date of Service: 10/17/24 Critical Care Time (minutes): 35 Comment: had 3 episodes of vomiting last night so continues to be NPO on insulin and dextrose drip to decrease lipase lipase down to 100, TG down to 600 Physical Exam 2 Vital Signs: Vital Signs: Last Vital Signs Temp 98.3 F 10/17/24 00:00 Pulse 76 10/17/24 08:00 Resp 18 10/17/24 08:00 BP 150/96 H 10/17/24 08:00 Pulse Ox 92 10/17/24 08:00 O2 Del Method Room Air 10/17/24 08:00 BMI result Body Mass Index 29.9 General: in acute distress, tired appearing Nutritional Appearance: well nourished and overweight Eyes: appearance normal, both eyes and all related structures; Alignment and Position: alignment normal and position normal Neck: No lymphadenopathy, no thyromegaly Resp: bilateral air entry equal, occasional added sounds present Cardio: Regular rate, regular rhythm; Heart sounds: S1 normal heart sound present and S2 normal heart sound present GI: soft, distended, tender epigastrium, no guarding, no hepatosplenomegaly : bladder normal to inspection, bladder normal to palpation, no renal angle tenderness Skin: no rashes or lesions noted and elasticity normal Neuro: oriented to person, oriented to place, oriented to time and moves all extremities Objective Data Labs 10/17/24 05:31 10/17/24 05:31 Labs: Laboratory Results - last 24 hr 10/16/24 10/16/24 10/16/24 14:23 14:30 16:22 WBC 12.3 H RBC 4.95 Hgb 15.4 Hct 41.9 L MCV 84.6 MCH 31.1 MCHC 36.8 H RDW 11.9 Plt Count 191 MPV 8.6 L Immature Gran % (Auto) 0.3 Neut % (Auto) 84.6 H Lymph % (Auto) 9.1 L [place] % (Auto) 5.4 Eos % (Auto) 0.4 Baso % (Auto) 0.2 Lymph # (Auto) 1.1 L [place] # (Auto) 0.7 Eos # (Auto) 0.1 Baso # (Auto) 0.0 Abs Immat Gran (auto) 0.04 H Absolute Neuts (auto) 10.4 H Absolute Nucleated RBC 0.000 Nucleated RBC % (auto) 0.0 Smear Tech's Comments VBG pH VBG pCO2 VBG pO2 VBG HCO3 VBG O2 Saturation VBG Base Excess Sodium 138 Potassium 4.4 Chloride 104 Carbon Dioxide 21 L Anion Gap 17 BUN 18 H Creatinine 1.00 Estim Creat Clear Calc 89.9 Estimated GFR > 60 POC Glucose 381 H* Random Glucose 406 H* Calcium 10.1 Phosphorus 3.0 Magnesium Total Bilirubin 0.5 Direct Bilirubin 0.1 AST 15 ALT 22 Alkaline Phosphatase 103 Lactate Dehydrogenase 121 Total Protein 7.4 Albumin 4.4 Triglycerides 1250 H Lipase 2141 H Beta-Hydroxybutyrate 0.79 H 10/16/24 10/16/24 10/16/24 16:25 17:06 18:08 WBC RBC Hgb Hct MCV MCH MCHC RDW Plt Count MPV Immature Gran % (Auto) Neut % (Auto) Lymph % (Auto) [place] % (Auto) Eos % (Auto) Baso % (Auto) Lymph # (Auto) [place] # (Auto) Eos # (Auto) Baso # (Auto) Abs Immat Gran (auto) Absolute Neuts (auto) Absolute Nucleated RBC Nucleated RBC % (auto) Smear Tech's Comments VBG pH 7.38 VBG pCO2 45 VBG pO2 42 VBG HCO3 27 H VBG O2 Saturation 69.0 VBG Base Excess 1.8 Sodium Potassium Chloride Carbon Dioxide Anion Gap BUN Creatinine Estim Creat Clear Calc Estimated GFR POC Glucose 312 H 292 H Random Glucose Calcium Phosphorus Magnesium Total Bilirubin Direct Bilirubin AST ALT Alkaline Phosphatase Lactate Dehydrogenase Total Protein Albumin Triglycerides Lipase Beta-Hydroxybutyrate 10/16/24 10/16/24 10/16/24 19:09 20:04 20:45 WBC RBC Hgb Hct MCV MCH MCHC RDW Plt Count MPV Immature Gran % (Auto) Neut % (Auto) Lymph % (Auto) [place] % (Auto) Eos % (Auto) Baso % (Auto) Lymph # (Auto) [place] # (Auto) Eos # (Auto) Baso # (Auto) Abs Immat Gran (auto) Absolute Neuts (auto) Absolute Nucleated RBC Nucleated RBC % (auto) Smear Tech's Comments VBG pH VBG pCO2 VBG pO2 VBG HCO3 VBG O2 Saturation VBG Base Excess Sodium Potassium Chloride Carbon Dioxide Anion Gap BUN Creatinine Estim Creat Clear Calc Estimated GFR POC Glucose 302 H 207 H 235 H Random Glucose Calcium Phosphorus Magnesium Total Bilirubin Direct Bilirubin AST ALT Alkaline Phosphatase Lactate Dehydrogenase Total Protein Albumin Triglycerides Lipase Beta-Hydroxybutyrate 10/16/24 10/16/24 10/16/24 21:00 22:04 23:08 WBC RBC Hgb Hct MCV MCH MCHC RDW Plt Count MPV Immature Gran % (Auto) Neut % (Auto) Lymph % (Auto) [place] % (Auto) Eos % (Auto) Baso % (Auto) Lymph # (Auto) [place] # (Auto) Eos # (Auto) Baso # (Auto) Abs Immat Gran (auto) Absolute Neuts (auto) Absolute Nucleated RBC Nucleated RBC % (auto) Smear Tech's Comments VBG pH VBG pCO2 VBG pO2 VBG HCO3 VBG O2 Saturation VBG Base Excess Sodium Potassium Chloride Carbon Dioxide Anion Gap BUN Creatinine Estim Creat Clear Calc Estimated GFR POC Glucose 268 H 260 H 224 H Random Glucose Calcium Phosphorus Magnesium Total Bilirubin Direct Bilirubin AST ALT Alkaline Phosphatase Lactate Dehydrogenase Total Protein Albumin Triglycerides Lipase Beta-Hydroxybutyrate 10/17/24 10/17/24 10/17/24 00:16 01:08 02:19 WBC RBC Hgb Hct MCV MCH MCHC RDW Plt Count MPV Immature Gran % (Auto) Neut % (Auto) Lymph % (Auto) [place] % (Auto) Eos % (Auto) Baso % (Auto) Lymph # (Auto) [place] # (Auto) Eos # (Auto) Baso # (Auto) Abs Immat Gran (auto) Absolute Neuts (auto) Absolute Nucleated RBC Nucleated RBC % (auto) Smear Tech's Comments VBG pH VBG pCO2 VBG pO2 VBG HCO3 VBG O2 Saturation VBG Base Excess Sodium Potassium Chloride Carbon Dioxide Anion Gap BUN Creatinine Estim Creat Clear Calc Estimated GFR POC Glucose 238 H 169 H 168 H Random Glucose Calcium Phosphorus Magnesium Total Bilirubin Direct Bilirubin AST ALT Alkaline Phosphatase Lactate Dehydrogenase Total Protein Albumin Triglycerides Lipase Beta-Hydroxybutyrate 10/17/24 10/17/24 10/17/24 03:13 04:47 05:31 WBC 14.8 H RBC 5.01 Hgb 15.5 Hct 43.1 MCV 86.0 MCH 30.9 MCHC 36.0 RDW 12.3 Plt Count 187 MPV 9.0 L Immature Gran % (Auto) 0.5 H Neut % (Auto) 91.4 H Lymph % (Auto) 2.8 L [place] % (Auto) 5.1 Eos % (Auto) 0.1 Baso % (Auto) 0.1 Lymph # (Auto) 0.4 L [place] # (Auto) 0.8 Eos # (Auto) 0.0 Baso # (Auto) 0.0 Abs Immat Gran (auto) 0.08 H Absolute Neuts (auto) 13.5 H Absolute Nucleated RBC 0.000 Nucleated RBC % (auto) 0.0 Smear Tech's Comments VERIFIED VBG pH VBG pCO2 VBG pO2 VBG HCO3 VBG O2 Saturation VBG Base Excess Sodium 142 Potassium 3.6 Chloride 107 Carbon Dioxide 26 Anion Gap 13 BUN 14 Creatinine 1.02 Estim Creat Clear Calc 88.2 Estimated GFR > 60 POC Glucose 104 116 H Random Glucose 140 H Calcium 10.1 Phosphorus 3.1 Magnesium 1.7 Total Bilirubin Direct Bilirubin AST ALT Alkaline Phosphatase Lactate Dehydrogenase Total Protein Albumin 4.3 Triglycerides 668 H Lipase 194 H Beta-Hydroxybutyrate 10/17/24 10/17/24 10/17/24 06:31 07:14 08:05 WBC RBC Hgb Hct MCV MCH MCHC RDW Plt Count MPV Immature Gran % (Auto) Neut % (Auto) Lymph % (Auto) [place] % (Auto) Eos % (Auto) Baso % (Auto) Lymph # (Auto) [place] # (Auto) Eos # (Auto) Baso # (Auto) Abs Immat Gran (auto) Absolute Neuts (auto) Absolute Nucleated RBC Nucleated RBC % (auto) Smear Tech's Comments VBG pH VBG pCO2 VBG pO2 VBG HCO3 VBG O2 Saturation VBG Base Excess Sodium Potassium Chloride Carbon Dioxide Anion Gap BUN Creatinine Estim Creat Clear Calc Estimated GFR POC Glucose 169 H 165 H 151 H Random Glucose Calcium Phosphorus Magnesium Total Bilirubin Direct Bilirubin AST ALT Alkaline Phosphatase Lactate Dehydrogenase Total Protein Albumin Triglycerides Lipase Beta-Hydroxybutyrate 10/17/24 09:03 WBC RBC Hgb Hct MCV MCH MCHC RDW Plt Count MPV Immature Gran % (Auto) Neut % (Auto) Lymph % (Auto) [place] % (Auto) Eos % (Auto) Baso % (Auto) Lymph # (Auto) [place] # (Auto) Eos # (Auto) Baso # (Auto) Abs Immat Gran (auto) Absolute Neuts (auto) Absolute Nucleated RBC Nucleated RBC % (auto) Smear Tech's Comments VBG pH VBG pCO2 VBG pO2 VBG HCO3 VBG O2 Saturation VBG Base Excess Sodium Potassium Chloride Carbon Dioxide Anion Gap BUN Creatinine Estim Creat Clear Calc Estimated GFR POC Glucose 126 H Random Glucose Calcium Phosphorus Magnesium Total Bilirubin Direct Bilirubin AST ALT Alkaline Phosphatase Lactate Dehydrogenase Total Protein Albumin Triglycerides Lipase Beta-Hydroxybutyrate Progress Note: A&P Assessment and plan (1) Hypertriglyceridemia: Status: Acute (2) Diabetes mellitus: Status: Acute (3) Acute hyperglycemia: Status: Acute (4) Acute pancreatitis: Status: Acute Plan Acute pancreatitis: Secondary to hypertriglyceridemia, presented with TG of 1250 and lipase over 1999. He had similar presentation in the past at least twice in 2023. He was started on an insulin and a dextrose drip to lower the triglyceride anemia thereby elevating the symptoms of pancreatitis. This morning the triglyceride level dropped to 660, lipase level dropped to 194. Patient is symptomatically better, but still continues to have some nausea and vomiting so he still remains NPO until he is ready. We will increase the standing fluids from LR to 150 cc per hour given the pancreatitis physiology leading to capillary leak. Episodes of hypertension treated with p.r.n. hydralazine Pain managed conservatively. We will repeat the labs at noon, if the triglyceride levels are below 500 Quality Stroke Does the patient have a stroke diagnosis?: No VTE Prior VTE?: No VTE Risk Level:: Medical - moderate - high VTE Device Contraindication: N/A - Device Ordered VTE Drug Contraindication: N/A - Med Ordered
[2024-10-17] MEDS: Famotidine/PF 20 MG/2 ML VIAL IVPUSH (09:48)
[2024-10-17] MEDS: hydrALAZINE HCl 20 MG/ML VIAL 10 MG IVPUSH ×2 (09:48→18:40)
--- NOTE | 2024-10-17 10:05 | MHC.CM.PN ---
Attempted to meet w/pt to discuss d/c planning needs: pt heavily sleeping x2: CM to revisit when pt is more awake.
[2024-10-17 10:17] LABS: Glucose, Whole Blood 117 mg/dL (60-115)
[2024-10-17 12:03] LABS: Glucose, Whole Blood 167 mg/dL (60-115)
[2024-10-17] MEDS: Lactated Ringers 1,000 ML 150 ML IVCONT ×2 (13:11→20:53)
[2024-10-17 13:17] LABS: Glucose, Whole Blood 170 mg/dL (60-115)
[2024-10-17 14:21] LABS: Glucose, Whole Blood 168 mg/dL (60-115)
[2024-10-17 14:33] LABS: Triglycerides 522 mg/dL (<150)
[2024-10-17 14:56] LABS: Glucose, Whole Blood 149 mg/dL (60-115)
[2024-10-17 16:03] LABS: Glucose, Whole Blood 126 mg/dL (60-115)
[2024-10-17 16:59] LABS: Triglycerides 482 mg/dL (<150)
[2024-10-17 17:04] LABS: Glucose, Whole Blood 106 mg/dL (60-115)
[2024-10-17] MEDS: Pantoprazole Sodium 40 MG/10 ML VIAL IVPUSH (18:42)
[2024-10-17 19:56] LABS: Glucose, Whole Blood 174 mg/dL (60-115)
[2024-10-17] MEDS: Insulin Lispro 100 UNIT/ML 3 ML VIAL SUBCUT (20:54)
[2024-10-18] MEDS: Lactated Ringers 1,000 ML 150 ML IVCONT ×2 (02:11→10:41)
[2024-10-18 03:09] VITALS: BP 164/87; PULSE 78; RESP 18; TEMP 36.6; O2SAT 95
[2024-10-18] MEDS: hydrALAZINE HCl 20 MG/ML VIAL 10 MG IVPUSH (03:09)
[2024-10-18 04:09] VITALS: BP 143/84
[2024-10-18] MEDS: Heparin Sodium,Porcine 5,000 UNIT/ML VIAL 5000 UNIT SUBCUT ×2 (04:51→11:39)
[2024-10-18] MEDS: Pantoprazole Sodium 40 MG/10 ML VIAL IVPUSH (06:07)
[2024-10-18 07:07] VITALS: BP 172/94; PULSE 95; RESP 18; TEMP 36.9; O2SAT 97
[2024-10-18 07:15] VITALS: BP 152/90
[2024-10-18 07:34] LABS: Glucose, Whole Blood 201 mg/dL (60-115)
[2024-10-18] MEDS: Insulin Lispro 100 UNIT/ML 3 ML VIAL SUBCUT ×2 (07:48→11:39)
--- NOTE | 2024-10-18 08:05 | PC.NURSE ---
BP elevated 152/90 amlodipine and Lisinopril from home list not ordered,dr. Velazquez made aware
[2024-10-18 08:43] VITALS: BP 154/90
[2024-10-18] MEDS: amLODIPine Besylate 5 MG TABLET PO (08:43)
[2024-10-18] MEDS: Thiamine HCL 100 MG TABLET PO (08:43)
[2024-10-18] MEDS: Folic Acid 1 MG TABLET PO (08:43)
[2024-10-18] MEDS: FLUoxetine HCl 20 MG CAPSULE PO (08:44)
[2024-10-18] MEDS: lisinopriL 20 MG TABLET PO (08:44)
[2024-10-18 10:40] LABS: MANUAL DIFF FLAG NO
[2024-10-18 10:42] LABS: Basophils Percent Auto 0.3 % (0-2); Eosinophils Absolute Auto 0.2 X10*3/uL (0.0-0.4); Eosinophils Percent Auto 1.6 % (0-4); Hematocrit 40.5 % (42.0-52.0); Hemoglobin 14.5 g/dl (14.0-18.0); Imm Gran Abs Auto 0.05 X10*3/uL (0.00-0.03); Imm Gran Pct Auto 0.4 % (0.0-0.4); Lymphocytes Absolute Auto 1.3 X10*3/uL (1.2-4.9); Mean Corpuscular HGB Conc 35.8 g/dl (31.0-36.0); Mean Corpuscular Hemoglobin 30.9 pg (27.0-33.0); Mean Corpuscular Volume 86.4 fL (80.0-98.0); Mean Platelet Volume 8.9 fL (9.4-12.4); Monocytes Absolute Auto 0.9 X10*3/uL (0.1-1.2); Monocytes Percent Auto 8.1 % (2-11); Neutrophils Absolute Auto 8.9 x10*3/uL (2.0-8.3); Neutrophils Percent Auto 78.6 % (45-73); Platelet Count 161 X10*3/uL (160-400); Red Blood Count 4.69 X10*6/uL (4.60-5.80); Red Cell Distribution Width 12.5 % (11.0-16.0); White Blood Count 11.4 X10*3/uL (4.8-10.8)
--- NOTE | 2024-10-18 10:52 | MHC.CM.PN ---
PT LIVES [place] [facility] HAS A [facility] MD WILL ORDER A [facility] FOR MED MANAGEMENT PT HAS OWN RIDE HOME DC PLAN HOME
[2024-10-18 11:03] LABS: Alanine Aminotransferase 15 U/L (0-40); Albumin Level 4.1 g/dL (3.5-5.0); Alkaline Phosphatase 75 U/L (39-117); Anion Gap 14 (12-20); Aspartate Amino Transferase 12 U/L (5-37); Bilirubin Total 0.8 mg/dL (0.0-1.0); Blood Urea Nitrogen 10 mg/dL (9-16); Calcium 9.8 mg/dL (8.4-10.2); Carbon Dioxide 23 mmol/L (22-29); Chloride 102 mmol/L (96-108); Cholesterol 241 mg/dL (<200); Creatinine Clr Calc Pharmacy 120.6; Estimated Glomerular Filt Rate > 60; Glucose Random 280 mg/dL (60-115); HDL Cholesterol 32 mg/dL (>40); Potassium 3.7 mmol/L (3.3-5.1); Sodium 135 mmol/L (135-145); Triglycerides 490 mg/dL (<150)
[2024-10-18 11:10] LABS: Estimated Average Glucose 206 mg/dL; Hemoglobin A1C 270.7405 umol/L; Hemoglobin A1c % 8.8 % (<6.0); Total Hemoglobin (HGBA1C) 3725.9403 umol/L
[2024-10-18 11:14] LABS: Glucose, Whole Blood 249 mg/dL (60-115)
--- NOTE | 2024-10-18 11:41 | PC.NURSE ---
patient refuses sequentials ,risks explained,encouraged activity and leg excercises
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
[2024-10-18 14:18] LABS: Glucose, Whole Blood 231 mg/dL (60-115)
[2024-10-18] MEDS: Insulin Glargine,Hum.rec.anlog 100 UNIT/ML 10 ML VIAL 10 UNIT SUBCUT (14:23)
[2024-10-18] MEDS: metFORMIN HCl 500 MG TABLET PO (14:30)
[2024-10-18 15:13] VITALS: BP 171/82; PULSE 89; RESP 16; TEMP 37.3; O2SAT 97
== END 2024-10-18 15:55 | disposition home or self-care (01) | DRG 440 ==
LOC: HO.ED 18:32 → HO.EDOVER 19:53 → HO.ICU 21:00 → HO.S3 10-17 18:39
PROVIDERS: Internal Medicine Critical Care Medicine; Admitting Provider Nurse Practitioner Family; Emergency Provider Emergency Medicine; PCP Family Medicine; Visit Provider Student in an Organized Health Care Education/Training Program
DX: K85.80 Other acute pancreatitis without necrosis or infection (principal); E78.1 Pure hyperglyceridemia; E11.65 Type 2 diabetes mellitus with hyperglycemia; V89.2XXS Person injured in unspecified motor-vehicle accident, traffic, sequela; Z87.820 Personal history of traumatic brain injury; Z79.4 Long term (current) use of insulin; Z79.84 Long term (current) use of oral hypoglycemic drugs; Z79.899 Other long term (current) drug therapy
CPT/HCPCS: 36415; 74177; 80048; 80053; 80061; 80076; 82010; 82040; 82803; 82947; 83036; 83615; 83690; 83735; 84100; 84478; 85025; 93005; 99285; J0360; J1171; J1644; J2405; J2470; J7120; Q9967

== ENCOUNTER → 2024-10-16 16:10 | Outpatient (BNV) | payer OTHER, SELFPAY | PROVIDERS: Emergency Provider Emergency Medicine; PCP Family Medicine; Visit Provider Radiology Diagnostic Radiology | DX: K85.90 Acute pancreatitis without necrosis or infection, unspecified (principal) | CPT/HCPCS: 74177 ==

== ENCOUNTER → 2024-10-16 16:31 | Outpatient (BNV) | payer OTHER, SELFPAY | PROVIDERS: Admitting Provider Nurse Practitioner Family; Emergency Provider Emergency Medicine; PCP Family Medicine; Visit Provider Internal Medicine | DX: R10.9 Unspecified abdominal pain (principal) | CPT/HCPCS: 93010 ==

== ENCOUNTER → 2024-10-16 19:44 | Outpatient (BNV) | payer OTHER, SELFPAY | PROVIDERS: Admitting Provider Nurse Practitioner Family; Emergency Provider Emergency Medicine; PCP Family Medicine; Visit Provider Student in an Organized Health Care Education/Training Program | DX: E78.1 Pure hyperglyceridemia (principal); E11.65 Type 2 diabetes mellitus with hyperglycemia; Z79.4 Long term (current) use of insulin; K85.80 Other acute pancreatitis without necrosis or infection | CPT/HCPCS: 99239 ==

== ENCOUNTER → 2024-10-16 19:44 | Outpatient (BNV) | payer OTHER, SELFPAY | PROVIDERS: Admitting Provider Nurse Practitioner Family; Emergency Provider Emergency Medicine; PCP Family Medicine; Visit Provider Nurse Practitioner Family | DX: E11.65 Type 2 diabetes mellitus with hyperglycemia (principal); Z79.4 Long term (current) use of insulin; K85.80 Other acute pancreatitis without necrosis or infection; E78.1 Pure hyperglyceridemia | CPT/HCPCS: 99222; 99232 ==

== ENCOUNTER 2024-10-23 09:17 | Outpatient (AMB) | payer OTHER, SELFPAY ==
--- NOTE | 2024-10-23 09:45 | A.OFFVIS_ITS ---
Intake Intake Visit Reasons: Pump training Snap Attacher Required: Yes Snap Attacher Language: Consultants Intern Name: Conor [facility] [place] Accompanied by: Sister Allergies No Known Allergies Allergy (Verified 10/16/24 14:16) HPI Comprehensive Diabetes Asmnt Most Recent Diabetes Results: Cholesterol 241 mg/dL (<200) H 10/18/24 HDL Cholesterol 32 mg/dL (>40) L 10/18/24 Triglycerides 490 mg/dL (<150) H 10/18/24 Creatinine 0.75 mg/dL (0.5-1.4) 10/18/24 Blood Urea Nitrogen 10 mg/dL (9-16) 10/18/24 Sodium 135 mmol/L (135-145) 10/18/24 Potassium 3.7 mmol/L (3.3-5.1) 10/18/24 Chloride 102 mmol/L (96-108) 10/18/24 Carbon Dioxide 23 mmol/L (22-29) 10/18/24 Calcium 9.8 mg/dL (8.4-10.2) 10/18/24 AST 12 U/L (5-37) 10/18/24 ALT 15 U/L (0-40) 10/18/24 Total Protein 7.0 g/dL (6.5-8.0) 10/18/24 Albumin 4.1 g/dL (3.5-5.0) 10/18/24 [facility] Medical History Diabetes mellitus Diabetes mellitus with gastroparesis Uncontrolled type 2 diabetes mellitus with hyperglycemia, with long-term current use of insulin Alcohol use History of pancreatitis History of traumatic brain injury Obesity (BMI 30-39.9) Prediabetes Hypertriglyceridemia HTN (hypertension) Surgical History No pertinent past surgical history Family History Father No problems noted. Mother No problems noted. Social History Household Members: Family Household Members Other:: mother Housing: House Do you presently have visiting nurse or other home services: Yes ([employer]) Alcohol intake: current Alcohol intake frequency: a few times a week Alcohol type: beer Comment: camera removed, pt cooperative Patient Tobacco Use Status: Never used Tobacco Tobacco use type: Cigarette Cigarettes Per Day: 3 e-Cigarette/Vaping Use: Never Used Second Hand Smoke Exposure: Yes Advance Directives Date on File: 01/10/24 service: No Current occupational status: unemployed and disabled Current occupation: and disability Assessment & Plan Assessment & Plan (1) Diabetes mellitus: Code(s): E11.9 - Type 2 diabetes mellitus without complications Qualifiers: Diabetes mellitus type: type 2 Diabetes mellitus care home insulin use: with care home use Diabetes mellitus complication status: with hyperglycemia Q ualified Code(s): E11.65 - Type 2 diabetes mellitus with hyperglycemia; Z79.4 - long-term (current) use of insulin Plan: Patient at visit to set up an insert Dexcom G7 Patient declined to set up iLet insulin pump at today's visit He has been without a sensor for several months, discussed with patient and his sister if he would like to set up insulin pump he should use the Dexcom G7, because he can not use [employer] without a smart phone to start sensor. Instructed patient sensors water proof you can shower, or swim do not submerge sensor in water for over 30 minutes Is sensor falls off cannot put back in you need to replace sensor, patient given 3 sample sensors at today's visit Message sent to provider to order Dexcom G7 sensors Sensor placed on the back of left arm Patient left visit with sensor in warmup Reviewed how to interpret trend arrows Reminded patient that to check finger sticks if symptoms do not match sensor reading. Discussed lag time between finger stick and sensor data.? Instructed patient she should always keep blood glucometer for backup testing if needed Reviewed delay of CGM from fingersticks Reminded pt that if symptoms do not match sensor still needs to check fingersticks. Patient has decided to reschedule insulin pump training Portions of this note were created using voice recognition software, please excuse any words or phrases that may have been misinterpreted. Patient Instructions: Instrucciones para el paciente: CGM proporciona informaci?n sobre el control de la glucosa en sofi a lo nilda del d?a, incluidas la hiperglucemia y la hipoglucemia. Contin?e controlando la glucosa en sofi seg?n las instrucciones. Siga las pautas de nutrici?n proporcionadas. Informe cualquier molestia de inmediato al proveedor de atenci?n m?dica. Mantente celine hidratado. Puede ba?arse, ducharse, nadar y hacer ejercicio mientras usa el sensor de glucosa. No sumerja el sensor de glucosa en agua ayleen m?s de 30 minutos. Retire el sensor para ayad resonancia magn?bruce o ayad tomograf?a computarizada. Evite la m?quina de josé miguel X en los aeropuertos: retire el sensor o solicite la varita Coding Level of Care Code Est Pt Level 1 (55963) Diagnoses Type 2 diabetes mellitus with hyperglycemia, with long-term current use of insulin E11.65; Z79.4 Diabetes mellitus type: type 2 Diabetes mellitus predatory animal exterminator insulin use: with predatory animal exterminator use Diabetes mellitus complication status: with hyperglycemia
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
== END 2024-10-23 09:48 | disposition home or self-care (01) ==
PROVIDERS: PCP Family Medicine; Visit Provider Registered Nurse Diabetes Educator
DX: E11.65 Type 2 diabetes mellitus with hyperglycemia (principal); Z79.4 Long term (current) use of insulin

== ENCOUNTER → 2024-10-23 09:17 | Outpatient (BNVA) | payer OTHER, SELFPAY | PROVIDERS: PCP Family Medicine; Visit Provider Registered Nurse Diabetes Educator | DX: E11.65 Type 2 diabetes mellitus with hyperglycemia (principal); Z79.4 Long term (current) use of insulin | CPT/HCPCS: 99211 ==

== ENCOUNTER 2024-12-29 10:20 | Outpatient (AMB) | payer OTHER, SELFPAY ==
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
[2024-12-29 10:24] VITALS: BP 126/78; PULSE 89; O2SAT 97; BMI 29.9
[2024-12-29 10:35] LABS: Glucose, Whole Blood 323 mg/dL (60-115)
--- OUTSIDE RECORDS SUMMARY | 2024-12-29 12:23 | XMS_ITS | Encounter Summary ---
Author Organization [employer] [facility] Address [address] [place] [address] 7[address] [place] [address] Care Team Providers Care Social Security Assessor Name Role Phone Caprice Purdy MD Primary Care Provider Dede Castro PharmD Unavailable [phone] BryansGallito Dede PharmD Unavailable [phone] Josué River MD Unavailable [phone] Reason for Visit * Reason Comments Med Refill Encounter Details Date Type Department Care Team (Late st Contact Info) Description 10/07/2022 Refill [facility] [address] [place] [address] BryansDede Conti, PharmD [address] [place] [address] Hypertension, essential Social History Tobacco Use Types Packs/Day Years Used Date Smoking Tobacco: Never Assessed Sex and Gender Information Value Date Recorded Sex Assigned at Male 08/10/2022 10:17 AM EDT Legal Sex Male 10:17 AM EDT Gender Identity Male 08/10/2022 10:17 AM EDT Sexual Orientation Straight 08/10/2022 10 :17 AM EDT COVID-19 Exposure Response Date Recorded In the last 10 days, have yo u been in contact with someone who was confirmed or suspected to have Coronavirus/COVID-19? No / Unsure 10/02/2022 1:28 PM EST documented as of this encounter Plan of Treatment Upcoming Encounters Date Type Department Care Team (Late st Contact Info) Description 03/01/2025 9:30 AM EDT Office Visit [facility] MEDIC[facility] [address] [place] [address] Caprice Purdy MD [address] [place] [address] documented as of this encounter Visit Diagnoses Diagnosis Hypertension, essential Unspecified essential hypertension documented in this encounter Care Teams Social Security Assessor Relationship Specialty Start Date End Date Caprice Purdy MD [address] [place] [address] PCP - General Family Medicine 10/11/18 Dede Castro, PharmD [address] [place] [address] Pharmacist Internal Medicine 10/08/22 08/19/23 Dede Castro PharmD [address] [place] [address] Pharmacist Internal Medicine 08/20/23 Josué River MD [address] [place] [address] Endocrinology 10/24/24 documented as of this encounter
--- OUTSIDE RECORDS SUMMARY | 2024-12-29 12:23 | XMS_ITS | Encounter Summary ---
Author Organization [employer] Address [address] [place] [address] 7t [place] [address] Care Team Providers Care Fryer Line Helper Name Role Phone Caprice Purdy MD Primary Care Provider + [phone] Dede Castro PharmD Unavailable [phone] Dede Castro PharmD Unavailable [phone] Josué River MD Unavailable [phone] Encounter Details Date Type Department Care Team (Late Contact Info) Description 10/27/2022 Orders Only [facility] [address] [place], [place] [phone] Svetlana Serna LPN Social History Tobacco Use Types Packs/Day Years [...] Encounters Date Type Department Care Team (Late Contact Info) Description 03/01/2025 9:30 AM EDT Office Visit [facility] [address] [place], [place] [phone] Caprice Purdy MD [address] [place] [address] documented as of this encounter Visit Diagnoses Not on filedocumented in this encounter Care Teams Fryer Line Helper Relationship Specialty Start Date End Date Caprice Purdy MD [address] [place] [address] PCP - General Family Medicine 10/11/18 Dede Castro PharmD [address] [place] [address] Pharmacist Internal Medicine 10/08/22 08/19/23 Dede Castro PharmD [address] [place] [address] Pharmacist Internal Medicine 08/20/23 Josué River MD [address] [place] [address] Drive [address] [place] [address] Endocrinology 10/24/24 documented as of this encounter
--- OUTSIDE RECORDS SUMMARY | 2024-12-29 12:23 | XMS_ITS | Encounter Summary ---
Author Organization [employer] Address [address] 7t [place] [address] Care Team Providers Care Picture Copyist Name Role Phone Caprice Purdy MD Primary Care Provider [phone]- [phone] Dede Castro PharmD Unavailable Josué River MD Unavailable [phone] Reason for Visit * Reason Comments Med Refill Encounter Details Date Type Department Care Team (Late st Contact Info) Description 12/09/2024 Refill [facility] [address] [place] [address] Caprice Purdy MD [address] [place] [address] Hypertension, essential Social History Tobacco Use Types Packs/Day Years Used Date Smoking Tobacco: Every Day Cigarettes Smokeless Tobacco: Never Alcohol Use Standard Drinks/Week Comments Defer 0 (1 standard drink = 0.6 oz pur e alcohol) Depression Answer Date Recorded Patient Health Questionnaire-9 Score 0 10/25/2024 Patient Health Questionnaire-9 Score 0 10/25/2024 Last PHQ-9: Questionnaire Data Not on file 0 10/25/2024 Housing Stability Answer Date Recorded What is your housing situation today? I have marycarmen yeh 05/17/[address] you li ve. Do you have problems with any of the following? None of the above 05/17/2024 Food Insecurity Answer Date Recorded Within the past 12 months, y ou worried that your food would run out before you got money to buy more: Never True 05/17/2024 Within the past 12 months,th e food you bought just didn't last and you didn't have enough money to get more: Never True 04/2024 Transportation Answer Date Recorded In the past 12 months, has l ack of transportation kept you from medical appts, meetings, work or from getting things needed for daily living? No 05/17/2024 Utilities Answer Date Recorded In the past 12 months, has t he electric, gas, oil or water company threatened to shut off services in your home? No 05/17/2024 Depression Answer Date Recorded Patient Health Questionnaire-2 Score 0 10/25/2024 Internet Access Answer Date Recorded Internet Access Q1 No 06/12/2024 Internet Access Q2 I do not want or need it 11/2023 Sex and Gender Information Value Date Recorded Sex Assigned at Male 08/10/2022 10:17 AM EDT Legal Sex Male 10:17 AM EDT Gender Identity Male 08/10/2022 10:17 AM EDT Sexual Orientation Straight 08/10/2022 10 :17 AM EDT documented as of this encounter Plan of Treatment Upcoming Encounters Date Type Department Care Team (Late st Contact Info) Description 03/01/2025 9:30 AM EDT Office Visit [facility] [address] [place] [address] Caprice Purdy MD [address] [place] [address] documented as of this encounter Goals Goal Patient Goal Type Associated Problems Recent Progress Patient-Stated? Author Blood Pressure < 140/90 Blood Pressure 130/83(2024 3:25 PM EST) No Piers-Gambl e, Dede, PharmD Hemoglobin A1c < 7 Result Component 9.1( 3:30 PM EST) No Piers-Gambl e, Dede, PharmD documented as of this encounter Visit Diagnoses Diagnosis Hypertension, essential Unspecified essential hypertension documented in this encounter Additional Health Concerns Assessment Noted Time PHQ-9 Depression Total Score: 0 10/25/19 25 3:28 PM EST documented as of this encounter Care Teams Picture Copyist Relationship Specialty Start Date End Date Caprice Purdy MD [address] [place] [address] PCP - General Family Medicine 10/11/18 Dede Castro, TysonD [address] [place] [address] Pharmacist Internal Medicine 08/20/23 Joséu River MD [address] [place] [address] Endocrinology 10/24/24 documented as of this encounter
--- OUTSIDE RECORDS SUMMARY | 2024-12-29 12:23 | XMS_ITS | Encounter Summary ---
Author Organization [employer] Address [address] [place] [address] 7t [place] [address] Care Team Providers Care Junior Art Director Name Role Phone Caprice Purdy MD Primary Care Provider + [phone] Dede Castro PharmD Unavailable [phone] Dede Castro PharmD Unavailable [phone] Josué River MD Unavailable [phone] Encounter Details Date Type Department Care Team (Late Contact Info) Description 10/07/2022 Orders Only [facility] [address] [place], [place] [phone] Svetlana Serna LPN Social History Tobacco Use [...] Upcoming Encounters Date Type Department Care Team ([facility] Contact Info) Description 03/01/2025 9:30 AM EDT Office Visit [facility] [address] [place], [place] [phone] Caprice Purdy MD [address] [place] [address] documented as of this encounter Visit Diagnoses Not on filedocumented in this encounter Care Teams Junior Art Director Relationship Specialty Start Date End Date Caprice Purdy MD [address] [place] [address] PCP - General Family Medicine 10/11/18 Dede Castro PharmD [address] [place] [address] Pharmacist Internal Medicine 10/08/22 08/19/23 Dede Castro PharmD [address] [place] [address] Pharmacist Internal Medicine 08/20/23 Josué River MD [address] [place] [address] [address] [place] [address] Endocrinology 10/24/24 documented as of this encounter
--- OUTSIDE RECORDS SUMMARY | 2024-12-29 12:23 | XMS_ITS | Encounter Summary ---
Author Organization [facility] Address [address] [place] [address] 7 [place] [address] Care Team Providers Care Irs Agent Name Role Phone Caprice Purdy MD Primary Care Provider + [phone] Dede Castro PharmD Unavailable [phone] Dede Castro PharmD Unavailable [phone] Josué River MD Unavailable [phone] Reason for Visit * Reason Comments Med Refill Encounter Details Date Type Department Care Team (Late st Contact Info) Description 06/22/2023 Refill [facility] [address] [place] [phone] Alessandra Tovar MD [address] [place], [place] [phone] Social History Tobacco Use Types Packs/Day Years Used Date Smoking Tobacco: Never Smokeless Tobacco: Never Depression Answer Date Recorded Patient Health Questionnaire-9 Score 6 05/18/2023 Depression Answer Date Recorded Patient Health Questionnaire-2 Score 3 05/18/2023 Sex and Gender Information Value Date Recorded Sex Assigned at Male 08/10/2022 10:17 AM EDT Legal Sex Male 10:17 AM EDT Gender Identity Male 08/10/2022 10:17 AM EDT Sexual Orientation Straight 08/10/2022 10 :17 AM EDT documented as of this encounter Plan of Treatment Upcoming Encounters Date Type Department Care Team (Late st Contact Info) Description 03/01/2025 9:30 AM EDT Office Visit [facility] [address] [place] [address] Caprice Purdy MD [address] [place] [address] documented as of this encounter Goals Goal Patient Goal Type Associated Problems Recent Progress Patient-Stated? Author Blood Pressure < 140/90 Blood Pressure 130/83(2024 3:25 PM EST) No Dede Greenfield, PharmD Hemoglobin A1c < 7 Result Component 9.1( 3:30 PM EST) No Dede Greenfield, PharmD documented as of this encounter Visit Diagnoses Not on filedocumented in this encounter Additional Health Concerns Assessment Noted Time PHQ-9 Depression Total Score: 6 05/18/20 23 9:36 AM EDT documented as of this encounter Care Teams Irs Agent Relationship Specialty Start Date End Date Caprice Purdy MD [address] [place] [address] PCP - General Family Medicine 10/11/18 Dede Castro PharmD [address] [place] [address] Pharmacist Internal Medicine 10/08/22 08/19/23 Dede Castro PharmD [address] [place] [address] Pharmacist Internal Medicine 08/20/23 Josué River MD [address] [place] [address] Endocrinology 10/24/24 documented as of this encounter
--- OUTSIDE RECORDS SUMMARY | 2024-12-29 12:23 | XMS_ITS | Encounter Summary ---
Author Organization [employer] [facility] Address [address] [place] [address] [address] [place] [address] Care Team Providers Care Lifestyle Consultant Name Role Phone Caprice Purdy MD Primary Care Provider Dede Castro PharmD Unavailable [phone] Lupe Castrosa PharmD Unavailable [phone] Josué River MD Unavailable [phone] Reason for Visit * Reason Comments Med Refill Encounter Details Date Type Department Care Team (Late st Contact Info) Description 03/15/2023 Refill [facility] [address] [place] [address] Dede Castro, PharmD [address] [place] [address] Hypertension, essential; Familial hypertriglyceridemia; Type 2 diabetes mellitus without complication, without long-term current use of insulin ([facility]); Dyslipidemia Social History Tobacco Use Types Packs/Day Years Used Date Smoking Tobacco: Never Smokeless Tobacco: Never Sex and Gender Information Value Date Recorded Sex Assigned at Male 08/10/2022 10:17 AM EDT Legal Sex Male 10:17 AM EDT Gender Identity Male 08/10/2022 10:17 AM EDT Sexual Orientation Straight 08/10/2022 10 :17 AM EDT documented as of this encounter Plan of Treatment Upcoming Encounters Date Type Department Care Team (Late st Contact Info) Description 03/01/2025 9:30 AM EDT Office Visit [facility] [address] [place] [address] Caprice Purdy MD [address] [place] [address] documented as of this encounter Goals Goal Patient Goal Type Associated Problems Recent Progress Patient-Stated? Author Blood Pressure < 140/90 Blood Pressure 130/83( 025 3:25 PM EST) No Dede Greenfield PharmD documented as of this encounter Visit Diagnoses Diagnosis Hypertension, essential Unspecified essential hypertension Familial hypertriglyceridemia Pure hyperglyceridemia Type 2 diabetes mellitus without complication, without long-term current use of insulin ([facility]) Dyslipidemia Other and unspecified hyperlipidemia documented in this encounter Additional Health Concerns Assessment Noted Time PHQ-9 Depression Total Score: 0 11/25/19 23 9:39 AM EST documented as of this encounter Care Teams Lifestyle Consultant Relationship Specialty Start Date End Date Caprice Purdy MD [address] [place] [address] PCP - General Family Medicine 10/11/18 Dede Castro, PharmD [address] [place] [address] Pharmacist Internal Medicine 10/08/22 08/19/23 Dede Castro, PharmD [address] [place] [address] Pharmacist Internal Medicine 08/20/23 Josué River MD [address] [place] [address] Endocrinology 10/24/24 documented as of this encounter
--- OUTSIDE RECORDS SUMMARY | 2024-12-29 12:23 | XMS_ITS | Encounter Summary ---
Author Organization [employer] Address [address] [facility] [address] [place] [address] Care Team Providers Care Analytical Clerk Name Role Phone Caprice Purdy MD Primary Care Provider [phone] Dede Castro PharmD Unavailable [phone] Josué River MD Unavailable [phone] Encounter Details Date Type Department Care Team (Late st Contact Info) Description 12/29/2024 Orders Only GENERIC EXTERNAL DATA DEPARTMENT Provider, Generic External Data Social History Tobacco Use Types Packs/Day Years [...] Description 03/01/2025 9:30 AM EDT Office Visit [facility] [address] [place] [id number] Caprice Purdy MD [address] [place] [address] documented as of this encounter Goals Goal Patient Goal Type Associated Problems Recent Progress Patient-Stated? Author Blood Pressure < 140/90 Blood Pressure 130/83(2024 3:25 PM EST) No Dede Greenfield, PharmD Hemoglobin A1c < 7 Result Component 9.1( 3:30 PM EST) No Dede Greenfield PharmD documented as of this encounter Procedures Procedure Name Priority Date/Time Associated Diagnosis Comments GLUCOSE, WHOLE BLOOD Routine 12/29/2024 10:30 AM EDT documented in this encounter Results * (ABNORMAL) Glucose, Whole Blood (12/29/2024 10:30 AM EDT) Glucose, Whole Blood 323(H) 60 - 115 mg/dL [facility] Comment:METER #: [id number] 5Testing performed in the Endocrinology Department [address] , [address], [facility]. 12/29/2024 10:3 0 AM EDT 12/29/2024 10:35 AM EDT us Generic External Data Provider LAB BLOOD ORDERAB LES Final Result [facility] [address] [place] [address] [phone] documented in this encounter Visit Diagnoses Not on filedocumented in this encounter Additional Health Concerns Assessment Noted Time PHQ-9 Depression Total Score: 0 10/25/19 25 3:28 PM EST documented as of this encounter Care Teams Analytical Clerk Relationship Specialty Start Date End Date Caprice Purdy MD [address] [place] [address] PCP - General Family Medicine 10/11/18 Dede Castro, TysonD [address] [place] [address] Pharmacist Internal Medicine 08/20/23 Josué River MD [address] [place] [address] Endocrinology 10/24/24 documented as of this encounter
--- OUTSIDE RECORDS SUMMARY | 2024-12-29 12:23 | XMS_ITS | Data Portability ---
Author Organization [employer] Address [address] [place] [id number] Care Team Providers Care Candle Molder Hand Name Role Phone [facility] Referring Provider [facility] Primary Care Provider VELVET PAYNE Primary Care [...] Available Not Available No t Available [employer] [place] Lite kit USE TO TEST BLOOD SUGAR [...] /min 97 % 97 % 162.56 cm 40856.6 g 97.6 [degF] 137 mm[Hg] 89 mm[Hg] [...] [id number] Jacklyn Lee MD [facility] - [facility] [address] [place] [phone] 12/18/2022 17:53:32 12/21/2022 10:48:12 Acute pancreatitis [id number] K85.90 [id number] Alex Almeida MD Main [facility] [address] [place] [phone] 12/13/2023 11:36:28 12/13/2023 18:56:25 Peripheral venous insufficiency [id number] I87.2 This 42-year-ol d male with new [...] (MEDICARE REPLACEMENT/ADV ANTAGE - HMO) Ruy Valencia [id number] Ruy Valencia 12/13/2023 1 [facility] - DOS ON OR AFTER 2023 - DUAL ELIGIBLE - LONG TERM OPTIONS AND ONE CARE (MEDICARE REPLACEMENT/ADV ANTAGE - HMO) Ruy Valencia [id number] Ryu Valencia Notes Date Note Type Note Provider [...] ................... ................... ................... ................... ................... ................... ........ Operator Control Room Note From Richa Kim: Community Operator Control Room Ned Kim [id number] dispatched to a red for a 41 yom C/O pancreatitis. Upon arrival, the pt was sitting on the couch, awake and alert, oriented to baseline w/ a TBI, in obvious pain. Family/machining supervisor on scene stated that the pt had [...] stated his pain was 7/10 w/ oxycodone. [facility] was consulted; pt and machining supervisor/family were informed of the causes and treatment of pancreatitis, and that IV pain mgmt was recommended. Pt and machining supervisor were offered IV fluids in the home, but declined, stating that they were going to the ED [facility]. Pt and family were educated and red flags were discussed. ................... ................... ................... ................... ................... ................... ................... ........ Disposition: Fulfilled Jacklyn Lee MD [address] [place] [address],[address], [place], [phone], [employer] 12/18/2022 22:33:18 12/13/2023 text/html HPI: History of [...] NOT NEED FURTHER INFO Alex Almeida MD [address] [place] [address],[address], [place], [address], [facility] 12/13/2023 11:43:29
--- OUTSIDE RECORDS SUMMARY | 2024-12-29 12:23 | XMS_ITS | Encounter Summary ---
Author Organization [employer] [facility] Address [address] [place] [address] [address] [place] [address] Care Team Providers Care Inspector Screen Printing Name Role Phone Caprice Purdy MD Primary Care Provider [phone] Dede Castro PharmD Unavailable [phone] Dede Castro PharmD Unavailable [phone] Josué River MD Unavailable [phone] Encounter Details Date Type Department Care Team (Late st Contact Info) Description 12/21/2022 Orders Only [facility] MED[facility]INE [address] [place] [address] Caprice Purdy MD [address] [place] [address] Recurrent pancreatitis (Primary Dx) Social History Tobacco Use Types Packs/Day Years [...] suspected to have Coronavirus/COVID-19? No / Unsure 11/25/2022 9:11 AM EST documented as of this encounter Plan of Treatment Upcoming Encounters Date Type Department Care Team (Late st Contact Info) Description 03/01/2025 9:30 AM EDT Office Visit [facility] [address] [place] [address] Caprice Purdy MD [address] [place] [address] documented as of this encounter Goals Goal Patient Goal Type Associated Problems Recent Progress Patient-Stated? Author Blood Pressure < 140/90 Blood Pressure 130/83( 025 3:25 PM EST) No Dede Greenfield PharmD documented as of this encounter Visit Diagnoses Diagnosis Recurrent pancreatitis- Primary Chronic pancreatitis documented in this encounter Additional Health Concerns Assessment Noted Time PHQ-9 Depression Total Score: 0 11/25/19 23 9:39 AM EST documented as of this encounter Care Teams Inspector Screen Printing Relationship Specialty Start Date End Date Caprice Purdy MD [address] [place] [address] PCP - General Family Medicine 10/11/18 Dede Castro PharmD [address] [place] [address] Pharmacist Internal Medicine 10/08/22 08/19/23 Dede Castro PharmD [address] [place] [phone] Pharmacist Internal Medicine 08/20/23 Josué River MD [address] [place] [address] [address] [place] [phone] Endocrinology 10/24/24 documented as of this encounter
--- OUTSIDE RECORDS SUMMARY | 2024-12-29 12:23 | XMS_ITS | Clinical Summary ---
Author Organization [employer] Address [address] [place] [address] Care Team Providers Care Implementation Lead Name Role Phone Caprice Purdy MD Primary Care Provider [phone]- [phone] Dede Castro PharmD Unavailable Josué River MD Unavailable [phone] Allergies No known active allergies Medications * This document contains information received from the source organization and may not represent a complete record from that organization. thiamine (Vitamin B-1) 100 MG tabletIndications:Alco hol abuse TAKE 1 TABLET BY MOUTH EVERY MORNING 90 tablet 024 Active atorvastatin (Lipitor) 80 MG tabletIndications:Fami lial hypertriglyceridemia TAKE 1 TABLET BY MOUTH AT BEDTIME 90 tablet 024 Active gemfibrozil (Lopid) 600 MG tabletIndications:Fami lial hypertriglyceridemia Take 1 tablet (600 mg) by mouth before breakfast and before evening meal. 120 tablet Active amLODIPine (Norvasc) 5 MG tabletIndications:Esse ntial hypertension Take 1 tablet (5 mg) by mouth Once per day. 30 tablet 024 2024 Active Lancets 28G miscIndications:Type 2 diabetes mellitus with hyperglycemia, with long-term current use of insulin ([facility]) TEST BLOOD SUGAR TWICE DAILY 100 each Active glucose blood (FreeStyle Precision Ren Test) test stripIndications:Type 2 diabetes mellitus with hyperglycemia, with long-term current use of insulin (CMS/[facility]) Test blood sugar every 8 hours as directed 100 each 11 024 2024 Active folic acid (Folvite) 1 MG tabletIndications:Alco hol abuse Take 1 tablet (1,000 mcg) by mouth in the morning. 90 tablet 3 Active glucose blood (FREESTYLE LITE) test stripIndications:Type 2 diabetes mellitus with hyperglycemia, with long-term current use of insulin ([facility]) Use bid. Dx diabetes 60 each Active Alcohol Swabs (Alcohol Prep) 70 % padsIndications:Type 2 diabetes mellitus with hyperglycemia, with long-term current use of insulin ([facility]) Use with testing blood sugar 100 each 5 Active metFORMIN XR (Glucophage-XR) 500 MG 24 hr tabletIndications:Type 2 diabetes mellitus with hyperglycemia, with long-term current use of insulin ([facility]) Take 500 mg by mouth 2 times daily. Do not crush, chew, or split. Active insulin pen needle (Sure Comfort Pen [place]) 31G x 5 mm miscIndications:Type 2 diabetes mellitus with hyperglycemia, with long-term current use of insulin ([facility]) USE FOUR TIMES DAILY WITH INSULIN 100 each 024 Active Icosapent Ethyl (Vascepa) 1 g capsuleIndications:Fam ilial hypertriglyceridemia TAKE 2 CAPSULES BY MOUTH TWICE DAILY IN THE MORNING AND EVENING WITH MEALS 120 capsule 11 024 Active FLUoxetine (PROzac) 20 MG capsuleIndications:Cur rent moderate episode of major depressive disorder without prior episode ([facility]) TAKE 1 CAPSULE BY MOUTH EVERY MORNING 90 capsule 025 Active insulin glargine (Lantus) 100 UNIT/ML injectionIndications:T ype 2 diabetes mellitus with hyperglycemia, with long-term current use of insulin ([facility]) Inject under the skin at bedtime. [address] River Active lisinopril 20 MG tabletIndications:Hype rtension, essential TAKE 1 TABLET BY MOUTH EVERY MORNING 90 tablet 1 025 Active lisinopril 20 MG tabletIndications:Hype rtension, essential TAKE 1 TABLET BY MOUTH EVERY MORNING 90 tablet 1 024 2024 Discontinued Active Problems Patient Care Coordination No te Formatting of this note luisa nugent be different from the original. Enrolled in [facility] [place]NOTE 2[place] HTN clinic with Dede Castro, [place], [facility]. Followed by Dr River endocrinology as of 08/18/23 [facility] [employer]: [employer] Agency: [employer] Problem Noted Date Diagnosed Date Severe dental caries 06/29/2024 Dental abscess 06/29/2024 Mood disorder 06/16/2023 Overview (10/25/2024): PHQ9 is 6 on 06/13/23,denies SI ,sister reports he also has episodes of irritability that started after TBI -pt on fluoxetine -will hold on changes x now -06/16/23 evaluated pt and pt refused outpt psychotx but agreed to me for psychiatrist referral -[facility]Today stable, controlled. Denies suicidial or homacidial ideation. 10/25/24 Assessment & Plan (10/25/2024 3:46 PM EST): PHQ9 is 6 on 06/13/23,denies SI ,sister reports he also has episodes of irritability that started after TBI -pt on fluoxetine -will hold on changes x now -06/16/23 evaluated pt and pt refused outpt psychotx but agreed to me for psychiatrist referral -[facility] to [facility]Today stable, controlled. Denies suicidial or homacidial ideation. 10/25/24 Assessment & Plan (01/17/2024 11:16 AM EDT): PHQ9 today is 6,denies SI ,sister reports he also has episodes of irritability that started after TBI -pt on fluoxetine -will hold on changes x now -today evaluated pt and pt refused outpt psychotx but agreed to me for psychiatrist referral -[facility] to [facility] Assessment & Plan (06/16/2023 11:16 AM EDT): PHQ9 today is 6,denies SI ,sister reports he also has episodes of irritability that started after TBI -pt on fluoxetine -will hold on changes x now -today evaluated pt and pt refused outpt psychotx but agreed to me for psychiatrist referral -referred to outpt psychiatrist to be done by -[facility] History of traumatic brain injury 05/27/2023 Obesity (BMI 30-39.9) 05/27/2023 Pancreatitis 05/18/2023 Overview (10/25/2024): Hx multiple bouts of pancreatitis [id number], 12/2023, 04/11/24, 04/19/24., 10/16/24 likely from EtOH in setting severe of hypertriglyceridemia. -CT 04/11/24 and 10/16/24 abdomen pelvis w IV conFindings consistent with acute pancreatitis. No evidence of pancreatic necrosis or drainable fluid collection. -followed by Dr. River vehicle glass technician -admissions 04/14/24 and 04/19/24. Acute pancreatitis due to hypertriglyceridemia. Initially admitted to the ICU for insulin drip and started on Lopid. Triglyceride levels decreasing from 2430 to 524. Lipase trended down. He reports that he was taking his fenofibrate daily as scheduled, will stop and replace with gemfibrozil during hospital stay. -admissions 04/14/24 Acute pancreatitis due to hypertriglyceridemia. -presented to [facility] ED 10/16/24, admitted till 10/18/24 for evaluation of upper abdominal pain, nausea and vomiting. BG found to be 406 mg/dl and triglycerides 1250 mg/dl. CT abdomen/pelvis showed acute pancreatitis. Admitted to ICU and started on aggressive IVF and insulin drip with down trending triglycerides to 480. Abdominal pain resolved. Assessment & Plan (10/25/2024 3:44 PM EST): Hx multiple bouts of pancreatitis [id number], 12/2023, 04/11/24, 04/19/24., 10/16/24 likely from EtOH in setting severe of hypertriglyceridemia. -CT 04/11/24 and 10/16/24 abdomen pelvis w IV conFindings consistent with acute pancreatitis. No evidence of pancreatic necrosis or drainable fluid collection. -followed by Dr. River vehicle glass technician -admissions 04/14/24 and 04/19/24. Acute pancreatitis due to hypertriglyceridemia. Initially admitted to the ICU for insulin drip and started on Lopid. Triglyceride levels decreasing from 2430 to 524. Lipase trended down. He reports that he was taking his fenofibrate daily as scheduled, will stop and replace with gemfibrozil during hospital stay. -admissions 04/14/24 Acute pancreatitis due to hypertriglyceridemia. -presented to [facility] ED 10/16/24, admitted till 10/18/24 for evaluation of upper abdominal pain, nausea and vomiting. BG found to be 406 mg/dl and triglycerides 1250 mg/dl. CT abdomen/pelvis showed acute pancreatitis. Admitted to ICU and started on aggressive IVF and insulin drip with down trending triglycerides to 480. Abdominal pain resolved. Assessment & Plan (05/17/2024 10:30 AM EDT): Hx multiple bouts of pancreatitis [id number], 12/2023, 04/11/24, 04/19/24 likely from EtOH in setting severe of hypertriglyceridemia. -CT 04/11/24 abdomen pelvis w IV conFindings consistent with acute pancreatitis. No evidence of pancreatic necrosis or drainable fluid collection. -followed by Dr. River vehicle glass technician -admissions 04/14/24 and 04/19/24. Acute pancreatitis due to hypertriglyceridemia. Initially admitted to the ICU for insulin drip and started on Lopid. Triglyceride levels decreasing from 2430 to 524. Lipase trended down. He reports that he was taking his fenofibrate daily as scheduled, will stop and replace with gemfibrozil during hospital stay. -admissions 04/14/24 Acute pancreatitis due to hypertriglyceridemia. -he refuses [facility] referral Assessment & Plan (01/17/2024 11:20 AM EDT): Hx multiple bouts of pancreatitis most recents 08/2023 and 12/2023 likely from EtOH in setting severe of hypertriglyceridemia. -followed by Dr. River vehicle glass technician Assessment & Plan (08/25/2023 9:12 AM EST): Hx multiple bouts of pancreatitis most recent 08/2023 likely from EtOH in setting severe of hypertriglyceridemia. -followed by Dr. River vehicle glass technician Assessment & Plan (06/16/2023 12:42 PM EDT): Hx multiple bouts of pancreatitis most recent 05/2023 likely from EtOH in setting of hypertriglyceridemia. -say Dr. Lennon 05/2023 recommending continue lipid lowering rx Assessment & Plan (05/18/2023 3:22 PM EDT): Hx of pancreatitis before and last severe episode in 04/2023 needing ICU admission Seems mx factorial from ETOH abuse and hypertrygliceridemia 04/[address]: Severe pancreatitis with surrounding peripancreatic phlegmonous change/acute fluid collections. There is decreased enhancement of the body and tail the pancreas and Small amount of thrombus in the distal splenic vein in the portal splenic confluence. Enlarged fatty liver , repeated CT abdomen and pelvis showed improvement in peripancreatic fluid, no phlegmon,no fluid collection noted per hospital essence. -discussed w pt about ETOH use to try to avoid and to be complaint w meds and diet -denies current pain , from labs only noted mild tachycardia at 103-regular , seen before as well ,pt denies drinking x last 2 weeks so if true not seem from withdrawal ,denies CP,nor palpitations ,does have ketones in urine w elevated CBgs so likely from mild dehydration -will do labs -pt to RTC in fasting and will f lab results w PCP in 3 to 4 weeks -referred today to GI -lost care -referred as STAT and requested allergy specialist to Try to get an early apt -In regards Small amount of thrombus in the distal splenic vein in the portal splenic confluence reported in CT scan is a known complications from pancreatitis -from id pt was not started on AC and given his risk of bleeding and pt asymptomatic I will hold on starting AC -pt to f w GI referred today and will need to have EGD to r/o esophageal varices. -alarm signs and symptoms discussed w pt and sister Other specified health status 04/12/2023 Overview (10/25/2024): -next physical exam due after 10/25/25 -eye care facilitated by [facility], last apt 11/15/23 -dental home [facility] -Health care proxy already filed, have a copy at home Assessment & Plan (10/25/2024 3:41 PM EST): -next physical exam due after 10/25/25 -eye care facilitated by [facility], last apt 11/15/23 -dental home is [facility] -Health care proxy already filed, have a copy at home Assessment & Plan (05/17/2024 9:33 AM EDT): -next physical exam due after 08/25/2024 -eye care facilitated by [facility], last apt 11/15/23 -dental home is [facility] -Health care proxy already filed, have a copy at home Assessment & Plan (01/17/2024 11:15 AM EDT): -next physical exam due after 08/25/2024 -eye care facilitated by [facility], last apt 11/15/23 -dental home is [facility] -Health care proxy already filed, have a copy at home Assessment & Plan (08/25/2023 9:41 AM EST): -next physical exam due after 08/25/2024 -eye care facilitated by [facility], last apt 07/15/2022 -dental home is [facility] Cardiac risk counseling 04/12/2023 Overview (04/12/2023): -ASCVD risk and determined it to be on 11/06/2019: 10.8%. -Continue to strive for improved blood glucose and BP control -continue atrovastatin 80mg daily Assessment & Plan (01/17/2024 11:16 AM EDT): -ASCVD risk and determined it to be on 11/06/2019: 10.8%. 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 -follow up with Dr. Lisbeth sanon MD -continue fluoxetine 20mg po daily -He did not f/u with Dr. Bob and refuses psychiatric care. -Mom advised to call 911 if she fears for her safety and Pt understands this plan. 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 -follow up with Dr. Lisbeth sanon MD -continue fluoxetine 20mg po daily -He did not f/u with Dr. Bob and refuses psychiatric care. -Mom advised to call 911 if she fears for her safety and Pt understands this plan. 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 -follow up with Dr. Lisbeth sanon MD -continue fluoxetine 20mg po daily -He did not f/u with Dr. Bob and refuses psychiatric care. -Mom advised to call 911 if she fears for her safety and Pt understands this plan. 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 -follow up with Dr. Lisbeth sanon MD -continue fluoxetine 20mg po daily -He did not f/u with Dr. Bob and refuses psychiatric care. -Mom advised to call 911 if she fears for her safety and Pt understands this plan. 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 River Lab Results Component Value Date CHOLESTEROL 142 09/30/2020 LDLCHOL SEE COMMENT 09/30/2020 TRIG 1,250 (H) 10/16/2024 TRIG 128 05/04/2024 TRIG 2,430 (H) 04/11/2024 HDLCHOL 27 (L) 09/30/2020 CHOLHDLRAT 5.3 (H) 09/30/2020 -triglycerides > 5,000 at highest but went to 159 with the addition of Vescepa and sister involved making sure to take meds and avoid EtOH -hospitalized multiple times for pancreatitis, most recent 01/2024 -continue lifestyle modifications -Patient saw Dr. River on 08/18/23 where gemfibrozil was discontinued and patient to continue on atorvastatin 80, fish oil (Vascepa 2 g bid) and fenofibrate. -continue vascepa 2 gr BID -continues atorvastatin 80 mg daily -fenofibrate discontinued 04/2024 during hospitalization -gemfibrozil restarted 04/2024 during hospitalization - encdocrinology note 10/25/23 Multifactorial and probably related to poor glycemic control as well as alcohol abuse and familial. Continue fenofibrate and fish oils and atorvastatin -admissions 01/2024 and 04/14/24 Acute pancreatitis due to hypertriglyceridemia. Initially admitted to the ICU for insulin drip and started on Lopid. Triglyceride levels decreasing from 2430 to 524. Lipase trended down. Abdominal pain resolved. He reports that he was taking his fenofibrate daily as scheduled, so discontinued in hospital and stop and replaced with gemfibrozil. -Has appt. with Dr. 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 River Lab Results Component Value Date CHOLESTEROL 142 09/30/2020 LDLCHOL SEE COMMENT 09/30/2020 TRIG 1,250 (H) 10/16/2024 TRIG 128 05/04/2024 TRIG 2,430 (H) 04/11/2024 HDLCHOL 27 (L) 09/30/2020 CHOLHDLRAT 5.3 (H) 09/30/2020 -triglycerides > 5,000 at highest but went to 159 with the addition of Vescepa and sister involved making sure to take meds and avoid EtOH -hospitalized multiple times for pancreatitis, most recent 01/2024 -continue lifestyle modifications -Patient saw Dr. River on 08/18/23 where gemfibrozil was discontinued and patient to continue on atorvastatin 80, fish oil (Vascepa 2 g bid) and fenofibrate. -continue vascepa 2 gr BID -continues atorvastatin 80 mg daily -fenofibrate discontinued 04/2024 during hospitalization -gemfibrozil restarted 04/2024 during hospitalization - encdocrinology note 10/25/23 Multifactorial and probably related to poor glycemic control as well as alcohol abuse and familial. Continue fenofibrate and fish oils and atorvastatin -admissions 01/2024 and 04/14/24 Acute pancreatitis due to hypertriglyceridemia. Initially admitted to the ICU for insulin drip and started on Lopid. Triglyceride levels decreasing from 2430 to 524. Lipase trended down. Abdominal pain resolved. He reports that he was taking his fenofibrate daily as scheduled, so discontinued in hospital and stop and replaced with gemfibrozil. -Has appt. with Dr. 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 River Lab Results Component Value Date CHOLESTEROL 142 09/30/2020 LDLCHOL SEE COMMENT 09/30/2020 TRIG 128 05/04/2024 TRIG 2,430 (H) 04/11/2024 TRIG 1,621 (H) 01/05/2024 HDLCHOL 27 (L) 09/30/2020 CHOLHDLRAT 5.3 (H) 09/30/2020 -triglycerides > 5,000 at highest but went to 159 with the addition of Vescepa and sister involved making sure to take meds and avoid EtOH -hospitalized multiple times for pancreatitis, most recent 01/2024 -continue lifestyle modifications -Patient saw Dr. River on 08/18/23 where gemfibrozil was discontinued and patient to continue on atorvastatin 80, fish oil (Vascepa 2 g bid) and fenofibrate. -continue vascepa 2 gr BID -continues atorvastatin 80 mg daily -fenofibrate discontinued 04/2024 during hospitalization -gemfibrozil restarted 04/2024 during hospitalization - encdocrinology note 10/25/23 Multifactorial and probably related to poor glycemic control as well as alcohol abuse and familial. Continue fenofibrate and fish oils and atorvastatin -admissions 01/2024 and 04/14/24 Acute pancreatitis due to hypertriglyceridemia. Initially admitted to the ICU for insulin drip and started on Lopid. Triglyceride levels decreasing from 2430 to 524. Lipase trended down. Abdominal pain resolved. He reports that he was taking his fenofibrate daily as scheduled, so discontinued in hospital and stop and replaced with gemfibrozil. -Has appt. with Dr. 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 River vehicle glass technician Lab Results Component Value Date CHOLESTEROL 142 09/30/2020 LDLCHOL SEE COMMENT 09/30/2020 TRIG 1,621 (H) 01/05/2024 TRIG >5,680 (H) 08/05/2023 TRIG 159 (H) 05/31/2023 HDLCHOL 27 (L) 09/30/2020 CHOLHDLRAT 5.3 (H) 09/30/2020 -triglycerides > 5,000 at highest but went to 159 with the addition of Vescepa and sister involved making sure to take meds and avoid EtOH -hospitalized multiple times for pancreatitis, most recent 01/2024 -continue lifestyle modifications -Patient saw Dr. River on 08/18/23 where gemfibrozil was discontinued and patient to continue on atorvastatin 80, fish oil (Vascepa 2 g bid) and fenofibrate. -continue vascepa 2 gr BID -continues atorvastatin 80 mg daily -continue fenofibrate - encdocrinology note 10/25/23 Multifactorial and probably related to poor glycemic control as well as alcohol abuse and familial. Continue fenofibrate and fish oils and atorvastatin l. Will strive for tighter glycemic control. 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 River vehicle glass technician Lab Results Component Value Date CHOLESTEROL 142 09/30/2020 LDLCHOL SEE COMMENT 09/30/2020 TRIG >5,680 (H) 08/05/2023 TRIG 159 (H) 05/31/2023 TRIG 2,928 04/22/2023 HDLCHOL 27 (L) 09/30/2020 CHOLHDLRAT 5.3 (H) 09/30/2020 -triglycerides > 5,000 at highest but went to 159 with the addition of Vescepa and sister involved making sure to take meds and avoid EtOH -continue lifestyle modifications -Patient saw Dr. River on 08/18/23 where gemfibrozil was discontinued and patient to continue on atorvastatin 80, fish oil (Vascepa 2 g bid) and fenofibrate. 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 Calabrese but lost to no shows. Lab Results Component Value Date CHOLESTEROL 142 09/30/2020 LDLCHOL SEE COMMENT 09/30/2020 TRIG 159 (H) 05/31/2023 TRIG 2,928 04/22/2023 HDLCHOL 27 (L) 09/30/2020 CHOLHDLRAT 5.3 (H) 09/30/2020 -griglycerides were close to 3,000 but now 159 with the addition of Vescepa and sister involved making sure to take meds and avoid EtOH -continue lifestyle modifications -Labs on 11/05/2020 show an LDL of 83, lipoprotein A less than 10, Apolipoprotein B was 83 Endo rec to continue Fenofibrate, atorvastatin 80 mg and omega 3 two grams twice a day. -continue fenofibrate 160mg daily -continue vascepa 2 gr BID -continues atorvastatin 80 mg daily Assessment & Plan (05/18/2023 3:09 PM EDT): From chart review from [facility] ' notes pt used to f w vehicle glass technician Dr. Calabrese,Labs on 11/05/2020 show an LDL of 83, lipoprotein A less than 10, Apolipoprotein B was 83 Endo rec to continue Fenofibrate,, atorvastatin 80 mg and omega 3 two grams twice a day. -pt;s uncontrolled lipids is most likely in setting of ETOH abuse and poor compliaance w medications but states is taking all meds of [facility] since discharged from hospital 2 weeks ago -will continue fenofibrate daily instead of planned at hospital for gemfibrozil to decrease risk of rhabdomyolysis with statins and to take less tab a day -stop omega 3 and start vascepa 2 gr BID -continues atorvastatin 80 mg daily --I called today to pharmacy ( [facility]) and informed about changes in meds -ordered today lipids to be done in fasting -pt will RTC in fasting this or next week Assessment & Plan (11/17/2022 2:04 PM EST): Patient's TG was 2400 when presenting to the hospital. their baseline off medicine is in the mid-400's and with fenofibrate in the 230's. -continue fenofibrate 134 daily -continue atorvastatin 80 daily -continue [place] 3 2 gram bid -followed by endocrinology, last seen 02/04/2021 recommending follow up in July 2022 Hypercalcemia 11/17/2022 Overview (10/25/2024): Calcium level elevated at 8.3 on 12/2022, 10.2 on 04/2023, 10.5 05/2023, and 11.0 at repeat in 05/2023. -P 2.9, albumin 4.7, Vit D 23.3, and PTH 21. Would expect PTH to be low with elevated calcium, possibly primary hyperparathyroidism. Follows with Endocrinology. Assessment & Plan (10/25/2024 3:41 PM EST): Calcium level elevated at 8.3 on 12/2022, 10.2 on 04/2023, 10.5 05/2023, and 11.0 at repeat in 05/2023. -P 2.9, albumin 4.7, Vit D 23.3, and PTH 21. Would expect PTH to be low with elevated calcium, possibly primary hyperparathyroidism. Follows with Endocrinology. Assessment & Plan (05/17/2024 9:33 AM EDT): Calcium level elevated at 8.3 on 12/2022, 10.2 on 04/2023, 10.5 05/2023, and 11.0 at repeat in 05/2023. -P 2.9, albumin 4.7, Vit D 23.3, and PTH 21. Would expect PTH to be low with elevated calcium, possibly primary hyperparathyroidism. His GI doctor is referrring to endocrinology. Will follow up in 3 months. Assessment & Plan (01/17/2024 11:18 AM EDT): Calcium level elevated at 8.3 on 12/2022, 10.2 on 04/2023, 10.5 05/2023, and 11.0 at repeat in 05/2023. -P 2.9, albumin 4.7, Vit D 23.3, and PTH 21. Would expect PTH to be low with elevated calcium, possibly primary hyperparathyroidism. His GI doctor is referrring to endocrinology. Will follow up in 3 months. Assessment & Plan (06/16/2023 11:32 AM EDT): Calcium level elevated at 8.3 on 12/2022, 10.2 on 04/2023, 10.5 05/2023, and 11.0 at repeat in 05/2023. -P 2.9, albumin 4.7, Vit D 23.3, and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 GLUCOSE, WHOLE BLOOD Routine 10/16/2024 7:[address] ABDOMEN PELVIS W CONTRAST Routine 10/16/2024 6:27 PM EST GLUCOSE, WHOLE BLOOD Routine 10/16/2024 6:08 PM EST GLUCOSE, WHOLE BLOOD Routine 10/16/2024 5:06 PM EST VENOUS BLOOD GAS Routine 10/16/2024 4:25 PM EST BETA-HYDROXYBUTYRATE Routine 10/16/2024 4:22 PM EST TRIGLYCERIDES Routine 10/16/2024 4:22 PM EST PANORAMIC RADIOGRAPHIC IMAGE Routine 06/29/2024 1:00 PM EDT LIPID PANEL, STANDARD Routine 05/04/2024 8:54 AM EDT DIABETES EYE EXAM Routine 11/15/2023 DIABETES: URINE PROTEIN SCREENING Routine 05/31/2023 HEPATITIS C ANTIBODY (EXTERNAL RESULTS ONLY) Routine 01/03/2019 7:31 PM EDT HIV 1/2 ANTIGEN AND ANTIBODY (EXTERNAL RESULTS ONLY) Routine 01/03/2019 7:30 PM EDT from Last 3 Months or Most Recently Relevant to Health Maintenance Results * (ABNORMAL) Glucose, Whole Blood (12/29/2024 10:30 AM EDT) [facility] Glucose, Whole Blood 323(H) 60 - 115 mg/dL [facility] Comment:METER #: [id number] 5Testing performed in the Endocrinology Department [address] , [address], [facility]. 12/29/2024 10:3 0 AM EDT 12/29/2024 10:35 AM EDT us Generic External Data Provider LAB BLOOD ORDERAB LES Final Result Performing Organization Address City/State/[facility] Co de Phone Number [facility] [address] [place] [phone] * (ABNORMAL) POCT glycosylated hemoglobin (Hgb A1c) (10/25/2024 3:30 PM EST) [facility] Hemoglobin A1C 9.1(A) 4.0 - 6.0 % QC Media Lot # [id number] Lot# Expiration Date ,861 Blood Capillary blood specimen / Unknown 10/25/2024 3:30 PM EST us Caprice Purdy MD POINT OF CARE TEST ENTER/E DIT ORDERABLES Final Result * POCT glucose manually resulted (10/25/2024 3:29 PM EST) Pathologist [facility] Glucose Blood, POC 66 60 - 200 mg/dL QC Media Lot # [id number] Lot# Expiration Date , Blood Capillary blood specimen / Unknown 10/25/2024 3:29 PM EST us Caprice Purdy MD POINT OF CARE TEST ENTER/E DIT ORDERABLES Final Result * (ABNORMAL) Glucose, Whole Blood (10/16/2024 7:09 PM EST) Only the most recent of3 resultswithin the time period is included. Pathologist [facility] Glucose, Whole Blood 302(H) 60 - 115 mg/dL [facility] Comment:METER #: [id number] 10/16/2024 7:09 PM EST 10/16/2024 7:12 PM EST us Generic External Data Provider LAB BLOOD ORDERAB LES Final Result [facility] [address] [place] [phone] * CT Abdomen Pelvis w/ Contrast (10/16/2024 6:27 PM EST) Anatomical Region Laterality Modality Body, Pelvis, Abdomen Computed T omography 10/16/2024 6:27 PM EST Narrative 10/16/2024 6:27 PM EST ? [facility] ?[address] ?[place] [address] ? CT Scan Report ? Signed ? Patient: Erik,Ruy ?MR#: [id number] ? : 1980 ?Acct:[id number] ? Age/Sex: 43 / M ?ADM Date: 01/06/25 ? Loc: HO.ED ? Attending Dr: ? Ordering Physician: Arlin Menendez DO ?? Date of Service: 10/16/24 ?? Procedure(s): CT abdomen pelvis w IV con ?? Accession Number(s): [id number] ? cc: Caprice Purdy MD; Arlin Menendez DO ? Report Number: ?? [id number]: Total DLP = ??393.00 mGy-cm ? CLINICAL HISTORY: epigastric pain hx of pancreatitis ? CT of the abdomen and pelvis utilizing intravenous contrast. ? Comparison 04/11/2024. ? Findings: ?? There is fatty infiltration of the liver. The gallbladder is unremarkable. ?? No hydronephrosis. ?? The spleen is unremarkable. ?? There is peripancreatic edema and ill-defined fluid consistent with acute ?? pancreatitis. There is also unchanged atrophy of the pancreatic tail. ? No abdominal aortic aneurysm. There is mild atherosclerotic plaque. ?? There is mild retroperitoneal adenopathy slightly increased from previous. ?? No diverticulitis. ?? Normal appendix. ?? No bowel obstruction. ? Mild bladder wall thickening is likely incidental. ?? There is advanced facet disease in the lower lumbar spine. ? Impression: ?? Findings of acute pancreatitis. ?? In the pancreatic head there is a mildly hypodense ill-defined 1.4 cm ?? nodular area not seen previously that is indeterminate recommend follow-up ?? to exclude a subtle mass. ?? Mild retroperitoneal adenopathy is likely incidental but mildly increased ?? from previous recommend follow-up and 2-3 months. ?? Other findings as above. ? This document has been electronically signed by: Sagar Vazquez MD on ?? 10/16/2024 18:27:25 ? Dictated By: ?Ascencion Bob MD ? Signed By: ?<Electronically signed by Ascencion Bob MD in OV> ?10/16/241826 ? DD/ 26 ? TD/TT: 10/16/241826 ? [employer]: ? Procedure Note Miguel Ángel Rosario - 10/16/[address] [address] [address] Scan Report Signed Patient: Ruy ValenciaMR#: [id number] : 1980Acct:[id number] Age/Sex: 43 / MADM Date: 10/16/24 Loc: HO.ED Attending Dr: Ordering Physician: Arlin Menendez DO Date of Service: 10/16/24 Procedure(s): CT abdomen pelvis w IV con Accession Number(s): [id number] cc: Caprice Purdy MD; Arlin Menendez DO Report Number: [id number]: Total DLP = 393.00 mGy-cm CLINICAL HISTORY: epigastric pain hx of pancreatitis CT of the abdomen and pelvis utilizing intravenous contrast. Comparison 04/11/2024. Findings: There is fatty infiltration of the liver. The gallbladder is unremarkable. No hydronephrosis. The spleen is unremarkable. There is peripancreatic edema and ill-defined fluid consistent with acute pancreatitis. There is also unchanged atrophy of the pancreatic tail. No abdominal aortic aneurysm. There is mild atherosclerotic plaque. There is mild retroperitoneal adenopathy slightly increased from previous. No diverticulitis. Normal appendix. No bowel obstruction. Mild bladder wall thickening is likely incidental. There is advanced facet disease in the lower lumbar spine. Impression: Findings of acute pancreatitis. In the pancreatic head there is a mildly hypodense ill-defined 1.4 cm nodular area not seen previously that is indeterminate recommend follow-up to exclude a subtle mass. Mild retroperitoneal adenopathy is likely incidental but mildly increased from previous recommend follow-up and 2-3 months. Other findings as above. This document has been electronically signed by: Sagar Vazquez MD on 10/16/2024 18:27:25 Dictated By: Ascencion Bob MD Signed By: <Electronically signed by Ascencion Bob MD in OV> 10/16/241826 DD/ 26 TD/TT: 10/16/241826 [employer]: [facility] External Provider IMG CT PROCEDURES Final Result * (ABNORMAL) VENOUS BLOOD GAS (10/16/2024 4:25 PM EST) VBG pH 7.38 7.32 - 7.43 [facility] Comment:METER #: [id number] additional_comment: Cb springl VBG PCO2 45 mmHg [facility] Comment:METER #: [id number] additional_comment: Cb springl VBG PO2 42 mmHg [facility] Comment:METER #: [id number] additional_comment: Cb springl VBG Base Excess 1.8 mmol/L [facility] Comment:METER #: [id number] additional_comment: Cb springl VBG HCO3 27(H) 22 - 26 mmol/L [facility] Comment:METER #: [id number] additional_comment: Cb springl O2 Sat, Ronnie 69.0 % [facility] Comment:METER #: [id number] additional_comment: Cb jax 10/16/2024 4:25 PM EST 10/16/2024 4:38 PM EST us Generic External Data Provider LAB BLOOD ORDERAB LES Final Result Performing Organization Address [facility]/ZIP Co de Phone Number [facility] [address] [place] [phone] * (ABNORMAL) Beta-Hydroxybutyrate (10/16/2024 4:22 PM EST) Beta-Hydroxybu tyrate 0.79(H) 0.02 - 0.27 mmol/L [facility] 10/16/2024 4:22 PM EST 10/16/2024 4:24 PM EST us Generic External Data Provider LAB BLOOD ORDERAB LES Final Result Performing Organization Address [facility] de Phone Number [facility] [address] [place] [address] [phone] * (ABNORMAL) Triglycerides (10/16/2024 4:22 PM EST) Triglycerides 1,250(H) <150 mg/dL [facility] Comment:Desirable Triglyceri de: less than 150 mg/dLBorderline High Triglyceride 150-199 mg/dLHigh Triglyceride: 200-499 mg/dLVery High Triglyceride: greater than or equal to 5OO mg/dL 10/16/2024 4:22 PM EST 10/16/2024 4:24 PM EST us Generic External Data Provider LAB BLOOD ORDERAB LES Final Result Performing Organization Address [facility] Co de Phone Number [facility] [address] [place] [phone] * (ABNORMAL) Lipid Panel, Standard (05/04/2024 8:54 AM EDT) Triglycerides 128 <150 mg/dL [facility] Comment:Desirable Triglyceri de: less than 150 mg/dLBorderline High Triglyceride 150-199 mg/dLHigh Triglyceride: 200-499 mg/dLVery High Triglyceride: greater than or equal to 5OO mg/dL Cholesterol 135 <200 mg/dL [facility] Comment:Desirable Cholestero l: less than 200 mg/dLBorderline High Cholesterol: 200-239 mg/dLHigh Cholesterol: greater than 239 mg/dL LDL Cholesterol Calculated 76 <100 mg/dL [facility] Comment:Desirable LDL: less than 100 mg/dLNear Optimal/Above Optimal LDL: 110- 129 mg/dLBorderline High LDL: 130-159 mg/dLHigh LDL: 160-189 mg/dLVery High LDL: greater than or equal to 190 mg/dL HDL Cholesterol 34(L) >40 mg/dL [facility] Comment:Desirable HDL: great er than 40 mg/dL Note: This HDL assay may give artificially low results in patients with liver disease. 05/04/2024 8:54 AM EDT 05/04/2024 8:56 AM EDT us Generic External Data Provider LAB BLOOD ORDERAB LES Final Result [facility] [address] [place] [phone] * Diabetes Eye Exam (11/15/2023) Eye Exam Normal Normal Comment:Dr. Callahan Historical Provider HEALTH MAINTENANCE Final Result * Diabetes: Urine Protein Screening (05/31/2023) Microalbumin, Urine 142 Creatinine, Random Urine 1.5 Urine Historical Provider HEALTH MAINTENANCE Final Result * Hepatitis C Antibody (01/03/2019 7:31 PM EDT) Hepatitis C Antibody Nonreactive Blood 01/03/2019 7:31 PM EDT Historical Provider POINT OF CARE TEST ENTER/ EDIT ORDERABLES Final Result * HIV 1/2 ANTIGEN AND ANTIBODY (EXTERNAL RESULTS ONLY) (01/03/2019 7:30 PM EDT) HIV Ag/Ab Nonreactive 01/03/2019 7:30 PM EDT us Historical Provider LAB POINT OF CARE TEST DOCKED DEVICE UNSOLICITED RESULTS Final Result from Last 3 Months or Most Recently Relevant to Health Maintenance Insurance - [facility] - [facility] Care Teams Implementation Lead Relationship Specialty Start Date End Date [place], MD Caprice [address] [place] [address] PCP - General Family Medicine 10/11/18 Dede Castro, PharmD [address] [place] [phone] Pharmacist Internal Medicine 08/20/23 Josué River MD [address] [place], [place] Endocrinology 10/24/24
--- OUTSIDE RECORDS SUMMARY | 2024-12-29 12:24 | XMS_ITS | Encounter Summary ---
Author Organization [facility] Address [address] [place] [address] 7t [place] [address] Care Team Providers Care Integrated Program Teacher Name Role Phone Caprice Purdy MD Primary Care Provider Dede Castro PharmD Unavailable [phone] Dede Castro PharmD Unavailable [phone] Josué River MD Unavailable [phone] Encounter Details Date Type Department Care Team (Late st Contact Info) Description 06/11/2023 Abstract [facility] [address] [place] [phone] Caprice Purdy MD [address] [place] [address] [phone] Social History Tobacco Use Types Packs/Day Years [...] Description 03/01/2025 9:30 AM EDT Office Visit [facility] [address] [place] [address] [phone] Caprice Purdy MD [address] [place] [address] documented as of this encounter Goals Goal Patient Goal Type Associated Problems Recent Progress Patient-Stated? Author Blood Pressure < 140/90 Blood Pressure 130/83(2024 3:25 PM EST) No Bryans-Teresital Lupe miltonsa, PharmD Hemoglobin A1c < 7 Result Component 9.1( 3:30 PM EST) No Dede Greenfield, PharmD documented as of this encounter Visit Diagnoses Not on filedocumented in this encounter Additional Health Concerns Assessment Noted Time PHQ-9 Depression Total Score: 6 05/18/20 23 9:36 AM EDT documented as of this encounter Care Teams Integrated Program Teacher Relationship Specialty Start Date End Date Caprice Purdy MD [address] [place] [phone] PCP - General Family Medicine 10/11/18 Dede Castro, PharmD [address] [place] [address] Pharmacist Internal Medicine 10/08/22 08/19/23 Dede Castro, PharmD [address] [place] [phone] Pharmacist Internal Medicine 08/20/23 Josué River MD [address] [place] [address] Drive [address] [place] [address] Endocrinology 10/24/24 documented as of this encounter
--- OUTSIDE RECORDS SUMMARY | 2024-12-29 12:24 | XMS_ITS | Encounter Summary ---
Author Organization [employer] [facility] Address [address] [place] [address] [address] [place] [address] Care Team Providers Care Industrial X Ray Operator Name Role Phone Caprice Purdy MD Primary Care Provider + [phone] Dede Castro PharmD Unavailable [phone] Dede Castro PharmD Unavailable [phone] Josué River MD Unavailable [phone] Reason for Visit * Reason Comments Med Refill Encounter Details Date Type Department Care Team (Late st Contact Info) Description 06/16/2023 Refill [facility] [address] [place] [address] [phone] Alessandra Tovar MD [address] [place], [place] [phone] Social History Tobacco Use Types Packs/Day Years [...] Office Visit [facility] [address] [place] [address] Caprice Purdy MD [address] [place] [address] documented as of this encounter Goals Goal [...] documented as of this encounter Care Teams Industrial X Ray Operator Relationship Specialty Start Date End Date Caprice Purdy MD [address] [place] [address] PCP - General Family Medicine 10/11/18 Dede Castro PharmD [address] [place] [address] Pharmacist Internal Medicine 10/08/22 08/19/23 Dede Castro PharmD [address] [place] [address] Pharmacist Internal Medicine 08/20/23 Josué River MD [address] [place] [address] Endocrinology 10/24/24 documented as of this encounter
--- OUTSIDE RECORDS SUMMARY | 2024-12-29 12:24 | XMS_ITS | Encounter Summary ---
Author Organization [facility] Address [address] [place] [address] 7t [place] [address] Care Team Providers Care Regional Sales Director Name Role Phone Caprice Purdy MD Primary Care Provider Dede Castro PharmD Unavailable [phone] Dede Castro PharmD Unavailable [phone] Josué River MD Unavailable [phone] Encounter Details Date Type Department Care Team (Late st Contact Info) Description 05/18/2023 Abstract [facility] [address] [place] [phone] Caprice Purdy MD [address] [place] [address] [phone] Social History Tobacco Use Types Packs/Day Years [...] 9:30 AM EDT Office Visit [facility] [address] [place] [address] [phone] Caprice Purdy MD [address] [place] [address] documented as of this encounter Goals Goal [...] documented as of this encounter Care Teams Regional Sales Director Relationship Specialty Start Date End Date Caprice Purdy MD [address] [place] [address] PCP - General Family Medicine 10/11/18 Dede Castro, PharmD [address] [place] [phone] Pharmacist Internal Medicine 10/08/22 08/19/23 Dede Castro, PharmD [address] [place] [phone] Pharmacist Internal Medicine 08/20/23 Josué River MD [address] [place] [address] Endocrinology 10/24/24 documented as of this encounter
--- OUTSIDE RECORDS SUMMARY | 2024-12-29 12:24 | XMS_ITS | Encounter Summary ---
Author Organization [employer] Address [address] [place] [address] 7t [place] [address] Care Team Providers Care Architect Internship Name Role Phone Caprice Purdy MD Primary Care Provider [phone] Dede Castro PharmD Unavailable Josué River MD Unavailable [phone] Reason for Visit * Reason Onset Date Comments Med Refill 07/25/2024 Encounter Details Date Type Department Care Team (Late st Contact Info) Description 07/25/2024 Telephone [facility] [address] [place], [place] [phone] Caprice Purdy MD [address] [place], [place] [phone] Med Refill Social History Tobacco Use Types Packs/Day Years Used Date Smoking Tobacco: Every Day Cigarettes Smokeless Tobacco: Never Alcohol Use Standard Drinks/Week Comments Defer 0 (1 standard drink = 0.6 oz pur e alcohol) Depression Answer Date Recorded Patient Health Questionnaire-9 Score 6 05/18/2023 Housing Stability Answer Date Recorded What is your housing situation today? I have marycarmenangelina yeh 05/17/[address] you [...] Recorded Patient Health Questionnaire-2 Score 3 05/18/2023 Internet Access Answer Date Recorded Internet Access Q1 No 06/12/2024 Internet Access Q2 I do not want or need it 11/2023 Sex and Gender Information Value Date Recorded Sex Assigned at Male 08/10/2022 10:17 AM EDT Legal Sex Male 10:17 AM EDT Gender Identity Male 08/10/2022 10:17 AM EDT Sexual Orientation Straight 08/10/2022 10 :17 AM EDT documented as of this encounter Miscellaneous Notes * Telephone Encounter - Svetlana Serna LPN - 07/25/2024 9:18 AM EDT Medication is prescribed by Endo. * Telephone Encounter - Newton Shaffer - 07/25/2024 9:01 AM EDT TC from pt requesting medication refill. Medications needing refill : Insulin Aspart (NOVOLOG FLEXPEN SC) To be sent to: [facility] - [place], [place] - [address] [facility] documented in this encounter Plan of Treatment Upcoming Encounters Date Type Department Care Team (Late st Contact Info) Description 03/01/2025 9:30 AM EDT Office Visit [facility] [address] [place] [address] Caprice Purdy MD [address] [facility] [place] [address] documented as of this encounter Goals Goal Patient Goal Type Associated Problems Recent Progress Patient-Stated? Author Blood Pressure < 140/90 Blood Pressure 130/83(2024 3:25 PM EST) No Dede Greenfield PharmRichie Hemoglobin A1c < 7 Result Component 9.1( 3:30 PM EST) No Dede Greenfield PharmD documented as of this encounter Visit Diagnoses Not on filedocumented in this encounter Additional Health Concerns Assessment Noted Time PHQ-9 Depression Total Score: 6 05/18/20 23 9:36 AM EDT documented as of this encounter Care Teams Architect Internship Relationship Specialty Start Date End Date Caprice Purdy MD [address] [place] [address] PCP - General Family Medicine 10/11/18 Dede Castro, Marcelino [address] [place] [phone] Pharmacist Internal Medicine 08/20/23 Josué River MD [address] [place] [address] Drive [address] [place] [address] Endocrinology 10/24/24 documented as of this encounter
== END 2024-12-29 11:07 | disposition home or self-care (01) ==
LOC: HO.ENCR 10:20
PROVIDERS: PCP Family Medicine; Visit Provider Nurse Practitioner Adult Health
DX: E11.65 Type 2 diabetes mellitus with hyperglycemia (principal); Z79.4 Long term (current) use of insulin
CPT/HCPCS: 95251; 99214; G2211

== ENCOUNTER 2024-12-29 10:20 | Outpatient (REF) | payer OTHER, SELFPAY ==
[2024-12-29 14:13] LABS: Creatinine Urine 124.94 mg/dL; Microalbum/Creatinine Ratio Ur 39.2 ug/mg cr (<30)
[2024-12-30 05:48] LABS: C Peptide 2.99 ng/mL (0.80-3.85)
[2025-01-02 17:08] LABS: Glutamic acid decarboxylase Ab <5 IU/mL (<5)
[2025-01-05 01:08] LABS: Islet Cell Antibody Screen NEGATIVE (NEGATIVE)
== END 2024-12-29 10:21 | disposition home or self-care (01) ==
LOC: HO.LAB 10:20
PROVIDERS: PCP Family Medicine; Visit Provider Nurse Practitioner Adult Health
DX: E11.65 Type 2 diabetes mellitus with hyperglycemia (principal); Z79.4 Long term (current) use of insulin
CPT/HCPCS: 36415; 82043; 82570; 82947; 84681; 86341; 99212

== ENCOUNTER 2025-01-21 11:02 | Emergency (ER) | payer OTHER, SELFPAY ==
[2025-01-21] VITALS (7 sets, daily range): BP systolic 149–175; BP diastolic 91–100; PULSE 74–103; RESP 15–18; TEMP 36.7–36.9; O2SAT 97–99; BMI 29.3
--- NOTE | ~2025-01-21 | CT_ITS ---
CLINICAL HISTORY: epigastric pain hx pancreatitis CT abdomen and pelvis with IV contrast. COMPARISON: CT abdomen and pelvis dated 01/21/25 at 13:[address] abdomen and pelvis dated 04/11/24 at 12:41 EDT FINDINGS: Partially visualized lung bases are unremarkable. No focal hepatic lesion. Normal gallbladder. Normal spleen. Left adrenal nodule measuring 0.7 cm with Hounsfield units of 42, indeterminate and stable since imaging performed in 2023 when measured in similar fashion. There are mild inflammatory changes along the pancreatic head. Atrophic pancreatic tail. Pancreatic duct is not dilated. No organizing fluid collection or choledocholithiasis identified. Symmetric renal enhancement. Right renal cystic lesions measuring up to 1.6 cm. Additional smaller well-defined hypoattenuating lesions present within the kidneys bilaterally, too small to further characterize but likely representing cysts. No hydronephrosis. Normal appendix. No bowel obstruction. Multiple normal-sized retroperitoneal lymph nodes. Minimal calcified plaque present along the distal abdominal aorta without significant stenosis. Normal appearance of the urinary bladder. Prostate calcifications. No inguinal lymphadenopathy. Mild spondylosis. No acute fracture or suspicious bone lesion. IMPRESSION: 1. Mild acute pancreatitis involving the pancreatic head. No organizing fluid collection, pancreatic duct dilatation, pancreatic head mass or choledocholithiasis identified. 2. Multiple normal-sized retroperitoneal lymph nodes, likely reactive. 3. Stable indeterminate left adrenal nodule measuring 0.7 cm since imaging performed in 2023. This document has been electronically signed by: Alex Jones MD on 01/21/2025 14:55:22
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
--- NOTE | 2025-01-21 11:11 | ECG_ITS ---
Test Reason : abd pain Blood Pressure : */* mmHG Vent. Rate : 76 BPM Atrial Rate : 76 BPM P-R Int : 130 ms QRS Dur : 76 ms QT Int : 384 ms P-R-T Axes : -24 55 32 degrees QTcB Int : 432 ms Normal sinus rhythm Normal ECG When compared with ECG of 16-Oct-2024 16:47, Nonspecific T wave abnormality no longer evident in Anterior leads Referred By: Kelli David Electronically Signed By: ANDRIY CARPENTER MD
--- OUTSIDE RECORDS SUMMARY | 2025-01-21 11:24 | XMS_ITS | Data Portability ---
Author Organization [employer] Address [address] [place] [phone] Care Team Providers Care County Assessor Name Role Phone [facility] Referring Provider [facility] Primary Care Provider VELVET PAYNE Primary Care [...] Available Not Available No t Available [employer] Dukedom Lite kit USE TO TEST BLOOD SUGAR [...] /min 97 % 97 % 162.56 cm 79903.6 g 97.6 [degF] 137 mm[Hg] 89 mm[Hg] [...] [id number] Jacklyn Lee MD Main - [facility] [address] [place] [phone] 12/18/2022 17:53:32 12/21/2022 10:48:12 Acute pancreatitis [id number] K85.90 [id number] Alex Almeida MD Main - [facility] [address] [place] [phone] 12/13/2023 11:36:28 12/13/2023 18:56:25 Peripheral venous insufficiency [id number] I87.2 This 42-year-ol d male with new [...] Jackson Member ID Guarantor Name 12/18/2022 [facility] PRIOR TO 2023 - DUAL ELIGIBLE (MEDICARE REPLACEMENT/ADV ANTAGE - HMO) Ruy Valencia [id number] Ruy Valencia 12/13/2023 [facility] - [facility] OR AFTER 2023 - DUAL ELIGIBLE - JAIL OPTIONS AND ONE CARE (MEDICARE REPLACEMENT/ADV ANTAGE - HMO) Ruy Valencia [id number] Ruy Valencia Notes Date Note Type Note [...] ................... ................... ................... ................... ................... ................... ........ Framing Mill Supervisor Note From Richa Kim: Community Framing Mill Supervisor Ned Kim [id number] dispatched to a red for a 41 yom C/O pancreatitis. Upon arrival, the pt was sitting on the couch, awake and alert, oriented to baseline w/ a TBI, in obvious pain. Family/human services program specialist on scene stated that the pt had [...] his pain was 7/10 w/ oxycodone. [facility] was consulted; pt and human services program specialist/family were informed of the causes and treatment of pancreatitis, and that IV pain mgmt was recommended. Pt and human services program specialist were offered IV fluids in the home, but declined, stating that they were going to the ED [facility]. Pt and family were educated and red flags were discussed. ................... ................... ................... ................... ................... ................... ................... ........ Disposition: Fulfilled Jacklyn Lee MD [address] [place] [address],[address], [place], [phone], [employer] 12/18/2022 22:33:18 12/13/2023 text/html HPI: History of [...] NOT NEED FURTHER INFO Alex Almeida MD [address] [place] [address],[address], [place], [phone], [employer] [employer] 12/13/2023 11:43:29
[2025-01-21 11:40] LABS: MANUAL DIFF FLAG NO
[2025-01-21 11:42] LABS: Basophils Percent Auto 0.5 % (0-2); Eosinophils Percent Auto 0.7 % (0-4); Hematocrit 43.2 % (42.0-52.0); Imm Gran Abs Auto 0.05 X10*3/uL (0.00-0.03); Imm Gran Pct Auto 0.9 % (0.0-0.4); Lymphocytes Absolute Auto 1.1 X10*3/uL (1.2-4.9); Lymphocytes Percent Auto 18.9 % (20-40); Mean Corpuscular Hemoglobin 32.3 pg (27.0-33.0); Mean Corpuscular Volume 87.1 fL (80.0-98.0); Mean Platelet Volume 8.7 fL (9.4-12.4); Monocytes Absolute Auto 0.5 X10*3/uL (0.1-1.2); Neutrophils Absolute Auto 4.2 x10*3/uL (2.0-8.3); Platelet Count 161 X10*3/uL (160-400); Red Blood Count 4.96 X10*6/uL (4.60-5.80); Red Cell Distribution Width 11.5 % (11.0-16.0); White Blood Count 5.9 X10*3/uL (4.8-10.8)
[2025-01-21 11:53] LABS: Prothrombin Time 11.1 SEC (10.9-12.4)
[2025-01-21 12:04] LABS: Troponin-I High Sensitivity < 2.7 ng/L (<3.5-35.0)
[2025-01-21 12:26] LABS: Alanine Aminotransferase 49 U/L (0-40); Albumin Level 4.4 g/dL (3.5-5.0); Alkaline Phosphatase 114 U/L (39-117); Anion Gap 25 (12-20); Aspartate Amino Transferase 30 U/L (5-37); Bilirubin Total 0.4 mg/dL (0.0-1.0); Blood Urea Nitrogen 17 mg/dL (9-16); Calcium 9.4 mg/dL (8.4-10.2); Carbon Dioxide 14 mmol/L (22-29); Chloride 101 mmol/L (96-108); Creatinine Clr Calc Pharmacy 86.1; Estimated Glomerular Filt Rate > 60; Glucose Random 310 mg/dL (60-115); Lipase 802 U/L (8-78); Potassium 4.6 mmol/L (3.3-5.1); Sodium 135 mmol/L (135-145); Total Protein 8.1 g/dL (6.5-8.0); Triglycerides 2678 mg/dL (<150)
[2025-01-21] MEDS: 0.9 % Sodium Chloride 1,000 ML 999 ML IV (12:47)
[2025-01-21] MEDS: Morphine Sulfate 4 MG/ML CARTRIDGE IVPUSH ×2 (12:47→18:13)
[2025-01-21] MEDS: Insulin Regular, Human 100 UNIT/ML 10 ML VIAL IVPUSH (12:51)
[2025-01-21] MEDS: ondansetron HCL 4 MG/2 ML VIAL IVPUSH (12:52)
[2025-01-21 12:56] LABS: VBG Base Excess 1.3 mmol/L; VBG HCO3 26 mmol/L (22-26); VBG pCO2 43 mmHg; VBG pH 7.39 (7.32-7.43); VBG pO2 28 mmHg
[2025-01-21 12:57] LABS: Venous Blood Gas Refer to POC result
[2025-01-21] MEDS: iohexoL 350 MG/ML 100 ML INFUS..BTL 85 ML IV (13:18)
[2025-01-21 13:54] LABS: Beta-Hydroxybutyrate 2.16 mmol/L (0.02-0.27)
[2025-01-21 15:01] LABS: Alanine Aminotransferase 45 U/L (0-40); Albumin Level 4.2 g/dL (3.5-5.0); Alkaline Phosphatase 106 U/L (39-117); Anion Gap 20 (12-20); Aspartate Amino Transferase 27 U/L (5-37); Bilirubin Total 0.4 mg/dL (0.0-1.0); Blood Urea Nitrogen 18 mg/dL (9-16); Calcium 8.8 mg/dL (8.4-10.2); Carbon Dioxide 17 mmol/L (22-29); Chloride 105 mmol/L (96-108); Creatinine Clr Calc Pharmacy 98.5; Estimated Glomerular Filt Rate > 60; Glucose Random 252 mg/dL (60-115); Potassium 4.5 mmol/L (3.3-5.1); Sodium 137 mmol/L (135-145); Total Protein 7.4 g/dL (6.5-8.0)
[2025-01-21 15:04] LABS: Lipase 756 U/L (8-78)
[2025-01-21 17:36] LABS: Glucose, Whole Blood 214 mg/dL (60-115)
[2025-01-21 18:30] LABS: COVID-19 Test Negative (Negative); IDNOW Serial# 55D5AD1C
== END 2025-01-21 20:01 | disposition short-term general hospital (02) ==
PROVIDERS: Physician Assistant Medical; Registered Nurse Emergency; Emergency Provider Emergency Medicine; PCP Family Medicine
DX: K85.90 Acute pancreatitis without necrosis or infection, unspecified (principal); E11.65 Type 2 diabetes mellitus with hyperglycemia; E87.20 Acidosis, unspecified; E78.1 Pure hyperglyceridemia; R10.13 Epigastric pain; R11.2 Nausea with vomiting, unspecified; I10 Essential (primary) hypertension; Z79.4 Long term (current) use of insulin; Z79.899 Other long term (current) drug therapy
CPT/HCPCS: 36415; 74177; 80053; 82010; 82803; 82947; 83605; 83690; 84478; 84484; 85025; 85610; 87635; 93005; 96361; 96374; 96375; 96376; 99285; J2270; J2405; Q9967

== ENCOUNTER → 2025-01-21 11:11 | Outpatient (BNV) | payer OTHER, SELFPAY | PROVIDERS: Emergency Provider Emergency Medicine; PCP Family Medicine; Visit Provider Internal Medicine Cardiovascular Disease | DX: R10.9 Unspecified abdominal pain (principal) | CPT/HCPCS: 93010 ==

== ENCOUNTER → 2025-01-21 12:34 | Outpatient (BNV) | payer OTHER, SELFPAY | PROVIDERS: Emergency Provider Emergency Medicine; PCP Family Medicine; Visit Provider Radiology Diagnostic Radiology | DX: K85.90 Acute pancreatitis without necrosis or infection, unspecified (principal); D35.02 Benign neoplasm of left adrenal gland | CPT/HCPCS: 74177 ==

== ENCOUNTER 2025-02-09 09:38 | Outpatient (AMB) | payer OTHER, SELFPAY ==
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
[2025-02-09 09:42] VITALS: BP 126/80; PULSE 82; O2SAT 98; BMI 29.5
[2025-02-09 10:00] LABS: Glucose, Whole Blood 228 mg/dL (60-115)
--- OUTSIDE RECORDS SUMMARY | 2025-02-09 10:26 | XMS_ITS | Encounter Summary ---
Author Organization [facility] Address [address] [place] [address] [address] [place] [address] Care Team Providers Care Chipping Machine Operator Name Role Phone Caprice Purdy MD Primary Care Provider Dede Castro PharmD Unavailable [phone] Lupe Castrosa PharmD Unavailable [phone] Josué River MD Unavailable [phone] Reason for Visit * Reason Comments Med Refill Encounter Details Date Type Department Care Team (Late st Contact Info) Description 03/15/2023 Refill [facility] [address] [place] [address] Dede Castro, PharmD [address] [place] [address] Hypertension, essential; Familial hypertriglyceridemia; Type 2 diabetes mellitus without complication, without long-term current use of insulin ([facility]); Dyslipidemia Social History Tobacco Use Types Packs/Day [...] Description 03/01/2025 9:30 AM EDT Office Visit [facility] [address] [place] [address] Caprice Purdy MD [address] [place] [address] documented as of this encounter Goals Goal Patient Goal Type Associated Problems Recent Progress Patient-Stated? Author Blood Pressure < 140/90 Blood Pressure 130/83( 025 3:25 PM EST) No Dede Greenfield PharmD documented as of this encounter Visit Diagnoses Diagnosis Hypertension, essential Unspecified essential hypertension Familial hypertriglyceridemia Pure hyperglyceridemia Type 2 diabetes mellitus without complication, without long-term current use of insulin ([facility]) Dyslipidemia Other and unspecified hyperlipidemia documented in this encounter Additional Health Concerns Assessment Noted Time PHQ-9 Depression Total Score: 0 11/25/19 23 9:39 AM EST documented as of this encounter Care Teams Chipping Machine Operator Relationship Specialty Start Date End Date Caprice Purdy MD [address] [place] [address] PCP - General Family Medicine 10/11/18 Dede Castro, PharmD [address] [place] [address] Pharmacist Internal Medicine 10/08/22 08/19/23 Dede Castro, PharmD [address] [place] [address] Pharmacist Internal Medicine 08/20/23 Josué River MD [address] [place] [address] Endocrinology 10/24/24 documented as of this encounter
--- OUTSIDE RECORDS SUMMARY | 2025-02-09 10:27 | XMS_ITS | Encounter Summary ---
Author Organization [employer] [facility] Address [address] [place] [address] [address] [place] [address] Care Team Providers Care Car Trimmer Name Role Phone Caprice Purdy MD Primary Care Provider BryansDede Conti PharmD Unavailable [phone] BryansGallito Dede PharmD Unavailable [phone] Josué River MD Unavailable Reason for Visit * Reason Comments Med Refill Encounter Details Date Type Department Care Team (Late st Contact Info) Description 10/07/2022 Refill [facility] [address] [place] [address] BryansDede Conti, PharmD [address] [place] [address] Hypertension, essential Social History Tobacco Use Types [...] Description 03/01/2025 9:30 AM EDT Office Visit [facility] [address] [place] [address] Caprice Purdy MD [address] [place] [address] documented as of this encounter Visit Diagnoses Diagnosis Hypertension, essential Unspecified essential hypertension documented in this encounter Care Teams Car Trimmer Relationship Specialty Start Date End Date Caprice Purdy MD [address] [place] [address] PCP - General Family Medicine 10/11/18 Dede Castro, PharmD [address] [place] [phone] Pharmacist Internal Medicine 10/08/22 08/19/23 Dede Castro PharmD [address] [place] [phone] Pharmacist Internal Medicine 08/20/23 Josué River MD [address] [place] [address] Endocrinology 10/24/24 documented as of this encounter
--- OUTSIDE RECORDS SUMMARY | 2025-02-09 10:27 | XMS_ITS | Data Portability ---
Author Organization [employer] [facility] [employer] Address [address] [place] [id number] Care Team Providers Care Collection Development Librarian Name Role Phone [facility] Referring Provider [facility] Primary Care Provider VELVET PAYNE Primary [...] Available Not Available No t Available [employer] [place] Lite kit USE TO TEST BLOOD SUGAR [...] /min 97 % 97 % 162.56 cm 03007.6 g 97.6 [degF] 137 mm[Hg] 89 mm[Hg] [...] [id number] Jacklyn Lee MD Main - [facility] [address] [place] [phone] 12/18/2022 17:53:32 12/21/2022 10:48:12 Acute pancreatitis [id number] K85.90 [id number] Alex Almeida MD Main - [facility] [address] [place] [phone] 12/13/2023 11:36:28 12/13/2023 18:56:25 Peripheral venous insufficiency [id number] I87.2 This 42-year-ol d male with new [...] Jackson Member ID Guarantor Name 12/18/2022 1 [facility] - DOS PRIOR TO 2023 - DUAL ELIGIBLE (MEDICARE REPLACEMENT/ADV ANTAGE - HMO) Ruy Valencia [id number] Ruy Valencia 12/13/2023 1 [facility] - DOS ON OR AFTER 2023 - DUAL ELIGIBLE - [facility] OPTIONS AND ONE CARE (MEDICARE REPLACEMENT/ADV ANTAGE - HMO) Ruy Valencia [id number] Ruy Valencia Notes Date Note Type Note [...] ................... ................... ................... ................... ................... ................... ........ Machine Hamper Maker Note From Richa Kim: Community Machine Hamper Maker Ned Kim [id number] dispatched to a red for a 41 yom C/O pancreatitis. Upon arrival, the pt was sitting on the couch, awake and alert, oriented to baseline w/ a TBI, in obvious pain. Family/gas meter reader on scene stated that the pt had [...] stated his pain was 7/10 w/ oxycodone. [facility]; pt and gas meter reader/family were informed of the causes and treatment of pancreatitis, and that IV pain mgmt was recommended. Pt and gas meter reader were offered IV fluids in the home, but declined, stating that they were going to the ED [facility]. Pt and family were educated and red flags were discussed. ................... ................... ................... ................... ................... ................... ................... ........ Disposition: Fulfilled Jacklyn Lee MD [address] [place] [address],[address], [place], [phone], [employer] 12/18/2022 22:33:18 12/13/2023 text/html HPI: History of [...] NOT NEED FURTHER INFO Alex Almeida MD [address] [place] [address],[address], [place], [phone], [facility] 12/13/2023 11:43:29
--- OUTSIDE RECORDS SUMMARY | 2025-02-09 10:27 | XMS_ITS | Encounter Summary ---
Author Organization [employer] Address [address] [place] [address] [address] [place] [address] Care Team Providers Care Automotive Machinist Name Role Phone Caprice Purdy MD Primary Care Provider [phone] Dede Castro PharmD Unavailable [phone] Dede Castro PharmD Unavailable [phone] Josué River MD Unavailable [phone] Encounter Details Date Type Department Care Team (Late Contact Info) Description 10/27/2022 Orders Only [facility] [address] [place], [place] [phone] Svetlana Serna LPN Social History Tobacco Use [...] Description 03/01/2025 9:30 AM EDT Office Visit [facility] [address] [place], [place] [phone] Caprice Purdy MD [address] [place] [address] documented as of this encounter Visit Diagnoses Not on filedocumented in this encounter Care Teams Automotive Machinist Relationship Specialty Start Date End Date Caprice Purdy MD [address] [place] [id number] PCP - General Family Medicine 10/11/18 Dede Castro PharmD [address] [place] [phone] Pharmacist Internal Medicine 10/08/22 08/19/23 Dede Castro PharmD [address] [place] [phone] Pharmacist Internal Medicine 08/20/23 Josué River MD [address] [place] [address] [address] [place] [address] Endocrinology 10/24/24 documented as of this encounter
--- OUTSIDE RECORDS SUMMARY | 2025-02-09 10:27 | XMS_ITS | Clinical Summary ---
Author Organization [employer] Address [address] [facility] [address] [place] [address] Care Team Providers Care Drapery Head Former Name Role Phone Caprice Purdy MD Primary Care Provider [phone]- [phone] Dede Castro PharmD Unavailable Josué River MD Unavailable [phone] Allergies No known active allergies Medications * This document contains information received from the source organization and may not represent a complete record from that organization. thiamine (Vitamin B-1) 100 MG tabletIndications:Alcoh ol abuse TAKE 1 TABLET BY MOUTH EVERY MORNING 90 tablet 02/28/20 24 Active atorvastatin (Lipitor) 80 MG tabletIndications:Famil ial hypertriglyceridemia TAKE 1 TABLET BY MOUTH AT BEDTIME 90 tablet 02/28/20 24 Active gemfibrozil (Lopid) 600 MG tabletIndications:Famil ial hypertriglyceridemia Take 1 tablet (600 mg) by mouth before breakfast and before evening meal. 120 tablet 05/17/20 24 Active amLODIPine (Norvasc) 5 MG tabletIndications:Essen tial hypertension Take 1 tablet (5 mg) by mouth Once per day. 30 tablet 05/17/20 24 025 Active Lancets 28G miscIndications:Type 2 diabetes mellitus with hyperglycemia, with long-term current use of insulin (CMS/[facility]ER[facility]) TEST BLOOD SUGAR TWICE DAILY 100 each 05/17/20 24 Active glucose blood (FreeStyle Precision Ren Test) test stripIndications:Type 2 diabetes mellitus with hyperglycemia, with long-term current use of insulin (CMS/FORMERLY [facility]) Test blood sugar every 8 hours as directed 100 each 11 05/17/20 24 025 Active folic acid (Folvite) 1 MG tabletIndications:Alcoh ol abuse Take 1 tablet (1,000 mcg) by mouth in the morning. 90 tablet 3 05/17/20 24 Active glucose blood (FREESTYLE LITE) test stripIndications:Type 2 diabetes mellitus with hyperglycemia, with long-term current use of insulin ([facility]) Use bid. Dx diabetes 60 each 05/17/20 24 Active metFORMIN XR (Glucophage-XR) 500 MG 24 hr tabletIndications:Type 2 diabetes mellitus with hyperglycemia, with long-term current use of insulin ([facility]) Take 500 mg by mouth 2 times daily. Do not crush, chew, or split. Active insulin pen needle (Sure Comfort Pen [place]) 31G x 5 mm miscIndications:Type 2 diabetes mellitus with hyperglycemia, with long-term current use of insulin ([facility]) USE FOUR TIMES DAILY WITH INSULIN 100 each 11 07/07/20 24 Active Icosapent Ethyl (Vascepa) 1 g capsuleIndications:Fami lial hypertriglyceridemia TAKE 2 CAPSULES BY MOUTH TWICE DAILY IN THE MORNING AND EVENING WITH MEALS 120 capsule 11 09/14/20 24 Active insulin glargine (Lantus) 100 UNIT/ML injectionIndications:Ty pe 2 diabetes mellitus with hyperglycemia, with long-term current use of insulin ([facility]) Inject under the skin at bedtime. [address] River Active lisinopril 20 MG tabletIndications:Hyper tension, essential TAKE 1 TABLET BY MOUTH EVERY MORNING 90 tablet 1 12/12/19 25 Active Alcohol Swabs (Alcohol Prep) 70 % padsIndications:Type 2 diabetes mellitus with hyperglycemia, with long-term current use of insulin ([facility]) USE DIRECTED TO TEST BLOOD SUGAR 100 each 5 01/03/20 25 Active FLUoxetine (PROzac) 20 MG capsuleIndications:Curr ent moderate episode of major depressive disorder without prior episode ([facility]) TAKE 1 CAPSULE BY MOUTH EVERY MORNING 90 capsule 01/05/20 25 Active Active Problems Patient Care Coordination No te Formatting of this note migh t be different from the original. Enrolled in [facility] clinic with Dede Castro, PharmD, CDCES. 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 Denies suicidial or [...] [facility] -Today stable, controlled. Denies suicidial or homacidial [...] [facility] Assessment & Plan (06/16/2023 11:16 AM EDT): PHQ9 today is 6,denies SI ,sister reports he also has episodes of irritability that started after TBI -pt on fluoxetine -will hold on changes x now -today evaluated pt and pt refused outpt psychotx but agreed to me for psychiatrist referral -referred to outpt psychiatrist to be done by [facility] History of traumatic brain injury 05/27/2023 Obesity (BMI 30-39.9) 05/27/2023 Pancreatitis 05/18/2023 Overview (01/22/2025): Hx multiple bouts of pancreatitis [id number], 12/2023, 04/11/24, 04/19/24, 10/16/24, 01/21/25 likely from EtOH in setting severe of hypertriglyceridemia. -CT 04/11/24 and 10/16/24 abdomen pelvis w IV conFindings consistent with acute pancreatitis. No evidence of pancreatic necrosis or drainable fluid collection. -followed by Dr. River cook at school -admissions 04/14/24 and 04/19/24. Acute pancreatitis due to hypertriglyceridemia. Initially admitted to the ICU for insulin drip and started on Lopid. Triglyceride levels decreasing from 2430 to 524. Lipase trended down. He reports that he was taking his fenofibrate daily as scheduled, will stop and replace with gemfibrozil during hospital stay. -admissions 04/14/24 Acute pancreatitis due to hypertriglyceridemia. -presented to [facility] ED 10/16/24, admitted till 10/18/24 for evaluation of upper abdominal pain, nausea and vomiting. BG found to be 406 mg/dl and triglycerides 1250 mg/dl. CT abdomen/pelvis showed acute pancreatitis. Admitted to ICU and started on aggressive IVF and insulin drip with down trending triglycerides to 480. Abdominal pain resolved. -CT 01/21/25 IMPRESSION: 1. Mild acute pancreatitis involving the pancreatic head. No organizing fluid collection, pancreatic duct dilatation, pancreatic head mass or choledocholithiasis identified. 2. Multiple normal-sized retroperitoneal lymph nodes, likely reactive. 3. Stable indeterminate left adrenal nodule measuring 0.7 cm since imaging performed in 2023. Assessment & Plan (10/25/2024 3:44 PM EST): Hx multiple bouts of pancreatitis [id number], 12/2023, 04/11/24, 04/19/24., 10/16/24 likely from EtOH in setting severe of hypertriglyceridemia. -CT 04/11/24 and 10/16/24 abdomen pelvis w IV conFindings consistent with acute pancreatitis. No evidence of pancreatic necrosis or drainable fluid collection. -followed by Dr. River cook at school -admissions 04/14/24 and 04/19/24. Acute pancreatitis due to hypertriglyceridemia. Initially admitted to the ICU for insulin drip and started on Lopid. Triglyceride levels decreasing from 2430 to 524. Lipase trended down. He reports that he was taking his fenofibrate daily as scheduled, will stop and replace with gemfibrozil during hospital stay. -admissions 04/14/24 Acute pancreatitis due to hypertriglyceridemia. -presented to [facility] ED 10/16/24, admitted till 10/18/24 for evaluation of upper abdominal pain, nausea and vomiting. BG found to be 406 mg/dl and triglycerides 1250 mg/dl. CT abdomen/pelvis showed acute pancreatitis. Admitted to ICU and started on aggressive IVF and insulin drip with down trending triglycerides to 480. Abdominal pain resolved. Assessment & Plan (05/17/2024 10:30 AM EDT): Hx multiple bouts of pancreatitis [id number], 12/2023, 04/11/24, 04/19/24 likely from EtOH in setting severe of hypertriglyceridemia. -CT 04/11/24 abdomen pelvis w IV conFindings consistent with acute pancreatitis. No evidence of pancreatic necrosis or drainable fluid collection. -followed by Dr. River cook at school -admissions 04/14/24 and 04/19/24. Acute pancreatitis due [...] hypertriglyceridemia. -he refuses Alcohol Use Disorder Clinic [facility] referral Assessment & Plan (01/17/2024 11:20 AM EDT): Hx multiple bouts of pancreatitis most recents 08/2023 and 12/2023 likely from EtOH in setting severe of hypertriglyceridemia. -followed by Dr. River cook at school Assessment & Plan (08/25/2023 9:12 AM EST): Hx multiple bouts of pancreatitis most recent 08/2023 likely from EtOH in setting severe of hypertriglyceridemia. -followed by Dr. River cook at school Assessment & Plan (06/16/2023 12:42 PM EDT): [...] fluid, no phlegmon,no fluid collection noted per [facility] summery. -discussed w pt about ETOH use to [...] -lost care -referred as STAT and requested business account specialist to Try to get an early apt -In regards Small amount of thrombus in the distal splenic vein in the portal splenic confluence reported in CT scan is a known complications from pancreatitis -from mo pt was not started on AC and [...] due after 10/25/25 -eye care facilitated by [facility], last apt 11/15/23 -dental home [facility] -Health care proxy already filed, have a copy at home Assessment & Plan (10/25/2024 3:41 PM EST): -next physical exam due after 10/25/25 -eye care facilitated by [facility], last apt 11/15/23 -dental home is [facility] -Health care proxy already filed, have a copy at home Assessment & Plan (05/17/2024 9:33 AM EDT): -next physical exam due after 08/25/2024 -eye care facilitated by [facility], last apt 11/15/23 -dental home is [facility] -Health care proxy already filed, have a copy at home Assessment & Plan (01/17/2024 11:15 AM EDT): -next physical exam due after 08/25/2024 -eye care facilitated by [facility], last apt 11/15/23 -dental home is [facility] -Health care proxy already filed, have a copy at home Assessment & Plan (08/25/2023 9:41 AM EST): -next physical exam due after 08/25/2024 -eye care facilitated by [facility], last apt 07/15/2022 -dental home is [...] disorder and alcohol use disorder admitted to [facility] 02/24/2022-03/06/2022 for command auditory hallucinations. -follow up [...] disorder and alcohol use disorder admitted to [facility] 02/24/2022-03/06/2022 for command auditory hallucinations. -follow up [...] disorder and alcohol use disorder admitted to [facility] 02/24/2022-03/06/2022 for command auditory hallucinations. -follow up [...] disorder and alcohol use disorder admitted to [facility] 02/24/2022-03/06/2022 for command auditory hallucinations. -follow up with Dr. Lisbeth sanon MD -continue fluoxetine 20mg po daily -He did not f/u with Dr. Bob and refuses psychiatric care. -Mom advised to call 911 if she fears for her safety and Pt understands this plan. 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 River Lab Results Component Value Date [...] with gemfibrozil. -Has appt. with Dr. River, cook at school 05/2024 Assessment & Plan (10/25/2024 3:41 PM EST): Likely familial hyperuricacidemia, followed by cook at schoolDr. River Lab Results Component Value Date CHOLESTEROL [...] with gemfibrozil. -Has appt. with Dr. River, cook at school 05/2024 Assessment & Plan (05/17/2024 10:25 AM EDT): Likely familial hyperuricacidemia, followed by cook at school, Dr. River Lab Results Component Value Date [...] with gemfibrozil. -Has appt. with Dr. River, cook at school 05/2024 Assessment & Plan (01/17/2024 11:18 AM EDT): Likely familial hyperuricacidemia, followed by Dr. River cook at school Lab Results Component Value Date CHOLESTEROL 142 [...] Likely familial hyperuricacidemia, followed by Dr. River cook at school Lab Results Component Value Date CHOLESTEROL 142 [...] 3:09 PM EDT): From chart review from [facility] ' notes pt used to hanny w cook at school Dr. Calabrese,Labs on 11/05/2020 show an LDL [...] 134 daily -continue atorvastatin 80 daily -continue [place] 3 2 gram bid -followed by endocrinology, [...] as pharmacomtherapy, [facility], and [facility] pharmacy smoking cessation clinic Discussed USPSTF [...] as pharmacomtherapy, [facility] smoking [facility] group, and [facility] pharmacy smoking cessation clinic Discussed USPSTF [...] as pharmacomtherapy, [facility] smoking [facility], and [facility] pharmacy smoking cessation clinic Discussed USPSTF [...] long-term current use of insulin 12/09/2021 Overview (01/02/2025): Diabetes is not controlled. Followed by [facility] endocrine, Dr. River since 08/19/2023. Doing much better with cook at school and sister involved. Education for insulin pump done 03/15/24. Lab Results Component Value Date HGBA1C 9.1 [...] -Continue current medications: -metformin 500mg ER BID -Lantus 40 unidades ayad per endo note 02/06/24 -note from [employer], Dr. Josué River 03/15/24 reviewed. Being evaluated for insulin pump. -admissions 04/14/24 Acute pancreatitis due to hypertriglyceridemia. Initially admitted to the ICU for insulin drip and started on Lopid. -has appt. to get insulin pump placed 11/09/24 -note from Endocrinology 12/29/24 Beatriz Maalen reviewed. From insulin aspart U- 100 (Novolog FlexPen U-100 Insulin aspart) 20 units before breakfast and lunch 18 before supper insulin aspart U-100 (Novolog FlexPen U-100 Insulin aspart) 20 units before breakfast and lunch 18 before supper 30 days 21 mL 11RF Assessment & Plan (10/25/2024 3:40 PM EST): Diabetes is not controlled. Followed by [facility] endocrine, Dr. Rvier since 08/19/2023. Doing much better with cook at school and sister involved. Education for insulin pump [...] before breakfast to avoid hypoglycemia 02/23/24 via cook at schoolDr River -Lantus 40 unidades ayad per endo note 02/06/24 -note from [employer], Dr. Josué River 03/15/24 reviewed. Being evaluated for insulin pump. -admissions 04/14/24 Acute pancreatitis due to hypertriglyceridemia. Initially admitted to the ICU for insulin drip and started on Lopid. -has appt. to get insulin pump placed 11/09/24 Assessment & Plan (05/17/2024 10:27 AM EDT): DDiabetes is not controlled. Followed by [facility] endocrine, Dr. River since 08/19/2023. Doing much better with cook at school and sister involved. Education for insulin pump [...] before breakfast to avoid hypoglycemia 02/23/24 via cook at school, Dr River -Lantus 40 unidades ayad per endo note 02/06/24 -note from [employer], Dr. Josué River 03/15/24 reviewed. Being evaluated for insulin pump. -admissions 04/14/24 Acute pancreatitis due to hypertriglyceridemia. Initially admitted to the ICU for insulin drip and started on Lopid. Assessment & Plan (01/17/2024 11:19 AM EDT): Diabetes is not controlled. Followed by [facility] endo since 08/19/2023. Doing much better [...] is not controlled.Seen as new pt at [facility] endo 08/19/2023, note requested. Doing much [...] 10 units qac tid -Lantus 30 units qhs Assessment & Plan (06/16/2023 12:36 PM EDT): [...] & Plan (10/25/2024 3:31 PM EST): -Dx 9/019 based on 2 BP > 140/90. -Today, BP at goal -continue lisinopril 20mg daily -continue amlodipine 5mg daily Assessment & Plan (05/17/2024 10:23 AM EDT): -Dx 9/019 based on 2 BP > 140/90. -Today, [...] trigger. Patient would benefit from AUD program, chemical recovery operator, and OP therapy referral; he declined services. [...] sister ?? PLAN: 1. Follow up with [facility] [place]: Not recommended for follow-up 2. Patient goal is to stop drinking alcohol 3. Behavioral Recommendations a. Patient may request to be connected to [facility] at any time b. Patient may reach out to [facility], if needed c. Patient will follow-up with [...] to outpt psychiatrist to be done by Ro Lopez Resolved Problems Problem Noted Date Diagnosed Date Resolved Date Hypertriglyceridemia 05/27/2023 023 Leukocytosis 05/27/2023 06/16/2023 Encounters Date Type Department Care Team Description 02/09/2025 Orders Only GENERIC EXTERNAL DATA DEPARTMENT Provider, Generic External Data 01/21/2025 Orders Only GENERIC EXTERNAL DATA DEPARTMENT Provider, Generic External Data Acute pancreatitis, unspecified complication status, unspecified pancreatitis type (Primary Dx) 01/03/2025 Refill [facility] [address] [place] [address] Caprice Purdy MD Current moderate episode of major depressive disorder without prior episode ([facility]) 01/01/[address] [facility] [address] [place] [address] Caprice Purdy MD Type 2 diabetes mellitus with hyperglycemia, with long-term current use of insulin ([facility]) 12/29/[address] [facility] [address] [place] [address] Caprice Purdy MD Results 12/29/2024 Orders Only GENERIC EXTERNAL DATA DEPARTMENT Provider, Generic External Data 12/09/2024 Refill [facility] [address] [place] [address] Caprice Purdy MD Hypertension, essential 11/28/[address] [facility] [address] [place] [address] Caprice Purdy MD May recalls 11/28/2024 Travel from Last 3 Months Immunizations Name Administration [...] Description 03/01/2025 9:30 AM EDT Office Visit [facility] [address] [place] [address] Caprice Purdy MD [address] [place] [address] Health Maintenance Due Date Last Done Comments Dental Oral Exam 1980 Dental Prophylaxis 1980 Dental X-Ray: Bitewings 1980 Alcohol/Substance Use Screening 1992 Diabetes: Hemoglobin A1C 01/23/2025 025, 07/20/2024, 05/17/2024, Additional history exists Lipid Panel 05/04/2025 05/04/2024, 05/12, 04/22/2023, Additional history exists SDOH Screening 05/17/2025 05/17/2024 Depression Screening 10/25/2025 10/25/2024, 10/25/19 Diabetes: Foot Exam 10/25/2025 10/25/2024, 10/25/2024, 10/25/2024, Additional history exists Family Planning (PISQ) 10/25/2025 10/25/2024 Tobacco Screening 10/25/2025 10/25/2024 Eye Exam 11/15/2025 11/15/2023, 07/15/2022 Diabetes: Urine Protein Screening 12/29/2025 12/29/2024, 05/31/2023, 05/31/2023, Additional history exists Dental X-Ray: Full Mouth 06/30/2027 06/29/2024 Zoster [...] Blood Pressure 130/83(2024 3:25 PM EST) No Bryans-Dede Nevarez, PharmD Hemoglobin A1c < 7 Result Component 9.1( 3:30 PM EST) No Marycarmen-Dede Nevarez, PharmD Procedures Procedure Name Priority Date/Time Associated Diagnosis Comments GLUCOSE, WHOLE BLOOD Routine 02/09/2025 9:57 AM EDT COVID-19 ID NOW (MORFIN) Routine 01/21/2025 6:11 PM EDT GLUCOSE, WHOLE BLOOD Routine 01/21/2025 5:31 PM EDT LACTIC ACID Routine 01/21/2025 4:[address] ABDOMEN PELVIS W CONTRAST Routine 01/21/2025 2:55 PM EDT LIPASE Routine 01/21/2025 2:16 PM EDT COMPREHENSIVE METABOLIC PANEL Routine 01/21/2025 2:16 PM EDT VENOUS BLOOD GAS Routine 01/21/2025 12:5 0 PM EDT BETA-HYDROXYBUTYRATE Routine 01/21/2025 12:47 PM EDT LIPASE Routine 01/21/2025 11:36 AM EDT TRIGLYCERIDES Routine 01/21/2025 11:36 AM EDT COMPREHENSIVE METABOLIC PANEL Routine 01/21/2025 11:36 AM EDT HIGH SENSITIVITY TROPONIN I Routine 01/21/2025 11:36 AM EDT PROTHROMBIN TIME-INR Routine 01/21/2025 11:36 AM EDT CBC WITH AUTO DIFFERENTIAL Routine 01/21/2025 11:36 AM EDT ISLET CELL AB SCREEN W/REFL TITER Routine 12/29/2024 11:28 AM EDT GLUTAMIC ACID DECARBOXYLASE 65 AB Routine 12/29/2024 11:28 AM EDT C-PEPTIDE Routine 12/29/2024 11:28 AM EDT ALBUMIN, RANDOM URINE W/CREATININE Routine 12/29/2024 11:27 AM EDT GLUCOSE, WHOLE BLOOD Routine 12/29/2024 10:30 AM EDT POCT GLYCOSYLATED HEMOGLOBIN (HGB A1C) Routine 10/25/2024 3:30 PM EST Type 2 diabetes mellitus with hyperglycemia, with long-term current use of insulin ([facility]) PANORAMIC RADIOGRAPHIC IMAGE Routine 06/29/2024 1:00 PM EDT LIPID PANEL, STANDARD Routine 05/04/2024 8:54 AM EDT HM DIABETES EYE EXAM Routine 11/15/2023 HEPATITIS C ANTIBODY (EXTERNAL RESULTS ONLY) Routine 01/03/2019 7:31 PM EDT HIV 1/2 ANTIGEN AND ANTIBODY (EXTERNAL RESULTS ONLY) Routine 01/03/2019 7:30 PM EDT from Last 3 Months or Most Recently Relevant to Health Maintenance Results * (ABNORMAL) Glucose, Whole Blood (02/09/2025 9:57 AM EDT) Only the most recent of2 resultswithin the time period is included. Glucose, Whole Blood 228(H) 60 - 115 mg/dL [facility] Comment:METER #: [id number] Testing performed in the Endocrinology Department [address] , [address], [place]. 02/09/2025 9:57 AM EDT 02/09/2025 10:00 AM EDT us Generic External Data Provider LAB BLOOD ORDERAB LES Final Result Performing Organization Address [facility]/ZIP Co de Phone Number [facility] [address] [place] [phone] * COVID-19 ID NOW ([facility]ORFIN) (01/21/2025 6:11 PM EDT) IDJUDDW SERIAL# [id number] [facility] COVID-19 TEST Negative Negative [facility] COVID-19 NOTE See Note [facility] Comment: Results are for the identification of SARS-CoV2 RNA. TheSARS-CoV2 RNA is generally detectable in respiratory samplesduring the acute phase of infection. Positive results areindicative of the presence of SARS-CoV-2 RNA; clinicalcorrelation with patient history and other diagnosticinformation is necessary to determine patient infectionstatus. Positive results do not rule out bacterial infectionor co- infection with other viruses.Testing facilities within the [facility] and itsterritories are required to report all positive results tothe appropriate public health authorities.Negative results should be treated as presumptive and, ifinconsistent with clinical signs and symptoms or necessaryfor patient management, should be tested with differentauthorized or cleared molecular tests. Negative results donot preclude SARS-CoV2 RNA infection and should not be usedas the sole basis for patient management decisions. Negativeresults should be considered in the context of a patient'srecent exposures, history and the presence of clinical signsand symptoms consistent with COVID-19.This test has been authorized by the FDA under an EmergencyUse Authorization (EUA) for use by authorized laboratories.Testing performed on the Morfin ID NOW utilizing NAAT. 01/21/2025 6:11 PM EDT 01/21/2025 6:14 PM EDT Generic External Data Provider LAB MOLECULAR KLAUDIA GNOSTICS ORDERABLES Final Result Performing Organization Address [facility]/ZIP Co de Phone Number [facility] [address] [place] [phone] * (ABNORMAL) Glucose, Whole Blood (01/21/2025 5:31 PM EDT) Glucose, Whole Blood 214(H) 60 - 115 mg/dL [facility] Comment:METER #: [id number] 01/21/2025 5:31 PM EDT 01/21/2025 5:35 PM EDT Generic External Data Provider LAB BLOOD ORDERAB LES Final Result Performing Organization Address [facility] de Phone Number [facility] [address] [place] [phone] * Lactic Acid (01/21/2025 4:01 PM EDT) [facility] Lactic Acid 1.0 0.5 - 2.0 mmol/L [facility] 01/21/2025 4:01 PM EDT 01/21/2025 4:03 PM EDT Generic External Data Provider LAB BLOOD ORDERAB LES Final Result Performing Organization Address [facility] [place] [facility] de Phone Number [facility] [address] [place] [address] [phone] * CT Abdomen Pelvis w/ Contrast (01/21/2025 2:55 PM EDT) Anatomical Region Laterality Modality Body, Pelvis, Abdomen Computed T omography 01/21/2025 2:55 PM EDT Narrative 01/21/2025 2:56 PM EDT ? [facility] ?[address] ?[place] [address] ? CT Scan Report ? Signed ? Patient: Erik,Ruy ?MR#: [id number] ? : 1980 ?Acct:[id number] ? Age/Sex: 44 / M ?ADM Date: 04/13/25 ? Loc: HO.ED ? Attending Dr: ? Ordering Physician: Valerie Engel ?? Date of Service: 01/21/25 ?? Procedure(s): CT abdomen pelvis w IV con ?? Accession Number(s): [id number] ? cc: Caprice Purdy MD; Valerie Engel ? Report Number: ?? [id number]: Total DLP = ??476.00 mGy-cm ? CLINICAL HISTORY: epigastric pain hx pancreatitis ? CT abdomen and pelvis with IV contrast. ? COMPARISON: ?? CT abdomen and pelvis dated 01/21/25 at 13:04 EDT ?? CT abdomen and pelvis dated 04/11/24 at 12:41 EDT ? FINDINGS: ?? Partially visualized lung bases are unremarkable. ?? No focal hepatic lesion. Normal gallbladder. ?? Normal spleen. Left adrenal nodule measuring 0.7 cm with Hounsfield units ?? of 42, indeterminate and stable since imaging performed in 2023 when ?? measured in similar fashion. ? There are mild inflammatory changes along the pancreatic head. Atrophic ?? pancreatic tail. Pancreatic duct is not dilated. No organizing fluid ?? collection or choledocholithiasis identified. ? Symmetric renal enhancement. Right renal cystic lesions measuring up to ?? 1.6 cm. Additional smaller well-defined hypoattenuating lesions present ?? within the kidneys bilaterally, too small to further characterize but ?? likely representing cysts. No hydronephrosis. ? Normal appendix. No bowel obstruction. ?? Multiple normal-sized retroperitoneal lymph nodes. ?? Minimal calcified plaque present along the distal abdominal aorta without ?? significant stenosis. ? Normal appearance of the urinary bladder. ?? Prostate calcifications. ?? No inguinal lymphadenopathy. ?? Mild spondylosis. No acute fracture or suspicious bone lesion. ? IMPRESSION: ?? 1. Mild acute pancreatitis involving the pancreatic head. No organizing ?? fluid collection, pancreatic duct dilatation, pancreatic head mass or ?? choledocholithiasis identified. ?? 2. Multiple normal-sized retroperitoneal lymph nodes, likely reactive. ?? 3. Stable indeterminate left adrenal nodule measuring 0.7 cm since imaging ?? performed in 2023. ? This document has been electronically signed by: Alex Jones MD on ?? 01/21/2025 14:55:22 ? Dictated By: ?Alex Jones MD ? Signed By: ?<Electronically signed by Alex Jones MD in OV> ?01/21/251455 ? DD/ 54 ? TD/TT: 01/21/251454 ? A&P Mechanic: ? Procedure Note Donotuseinterpreter, Image - 01/21/[address] [address] [address] Scan Report Signed Patient: Brennan Valencia#: [id number] : 1980Acct:[id number] Age/Sex: 44 / MADM Date: 01/21/25 Loc: HO.ED Attending Dr: Ordering Physician: Valerie Engel Date of Service: 01/21/25 Procedure(s): CT abdomen pelvis w IV con Accession Number(s): [id number] cc: Caprice Purdy MD; Valerie Engel Report Number: [id number]: Total DLP = 476.00 mGy-cm CLINICAL HISTORY: epigastric pain hx pancreatitis CT abdomen and pelvis with IV contrast. COMPARISON: CT abdomen and pelvis dated 01/21/25 at 13:[address] abdomen and pelvis dated 04/11/24 at 12:41 EDT FINDINGS: Partially visualized lung bases are unremarkable. No focal hepatic lesion. Normal gallbladder. Normal spleen. Left adrenal nodule measuring 0.7 cm with Hounsfield units of 42, indeterminate and stable since imaging performed in 2023 when measured in similar fashion. There are mild inflammatory changes along the pancreatic head. Atrophic pancreatic tail. Pancreatic duct is not dilated. No organizing fluid collection or choledocholithiasis identified. Symmetric renal enhancement. Right renal cystic lesions measuring up to 1.6 cm. Additional smaller well-defined hypoattenuating lesions present within the kidneys bilaterally, too small to further characterize but likely representing cysts. No hydronephrosis. Normal appendix. No bowel obstruction. Multiple normal-sized retroperitoneal lymph nodes. Minimal calcified plaque present along the distal abdominal aorta without significant stenosis. Normal appearance of the urinary bladder. Prostate calcifications. No inguinal lymphadenopathy. Mild spondylosis. No acute fracture or suspicious bone lesion. IMPRESSION: 1. Mild acute pancreatitis involving the pancreatic head. No organizing fluid collection, pancreatic duct dilatation, pancreatic head mass or choledocholithiasis identified. 2. Multiple normal-sized retroperitoneal lymph nodes, likely reactive. 3. Stable indeterminate left adrenal nodule measuring 0.7 cm since imaging performed in 2023. This document has been electronically signed by: Alex Jones MD on 01/21/2025 14:55:22 Dictated By: Alex Jones MD Signed By: <Electronically signed by Alex Jones MD in OV> 01/21/251455 DD/ 54 TD/TT: 01/21/251454 A&P Mechanic: [facility] External Provider IMG CT PROCEDURES Final Result * (ABNORMAL) Lipase (01/21/2025 2:16 PM EDT) Only the most recent of2 resultswithin the time period is included. Lipase 756(H) 8 - 78 U/L [facility] 01/21/2025 2:16 PM EDT 01/21/2025 2:18 PM EDT Generic External Data Provider LAB BLOOD ORDERAB LES Final Result [facility] [address] [place] [phone] * (ABNORMAL) Comprehensive Metabolic Panel (01/21/2025 2:16 PM EDT) Only the most recent of2 resultswithin the time period is included. Sodium 137 135 - 145 mmol/L [facility] Potassium 4.5 3.3 - 5.1 mmol/L [facility] Chloride 105 96 - 108 mmol/L [facility] Carbon Dioxide 17(L) 22 - 29 mmol/L [facility] Anion Gap 20 12 - 20 [facility] Urea Nitrogen (BUN) 18(H) 9 - 16 mg/dL [facility] Creatinine, Serum 0.90 0.5 - 1.4 mg/dL [facility] Creatinine Clr Calc Pharmacy 98.5 [facility] Comment:eGFR (calculated fro m the MDRD study equation) and eCrCl(calculated from the Cockcroft-Gault equation) are based ondifferent parameters and may not yield comparable results.If eCrCl result is absurd, please check patient'sheight/weight. Estimated Glomerular Filt Rate >60 [facility] Comment:Chronic Kidney Disea se: Estimated GFR < 60 mL/min/1.48x3Aszhut Kidney Disease: Estimated GFR < 15 mL/min/1.73m2 Glucose 252(H) 60 - 115 mg/dL [facility] Calcium 8.8 8.4 - 10.2 mg/dL [facility] Bilirubin, Total 0.4 0.0 - 1.0 mg/dL [facility] Aspartate Amino Transferase 27 5 - 37 U/L [facility] Alanine Aminotransferase 45(H) 0 - 40 U/L [facility] Total Protein 7.4 6.5 - 8.0 g/dL [facility] Albumin Level 4.2 3.5 - 5.0 g/dL [facility] Alkaline Phosphatase 106 39 - 117 U/L [facility] 01/21/2025 2:16 PM EDT 01/21/2025 2:18 PM EDT us Generic External Data Provider LAB BLOOD ORDERAB LES Final Result [facility] [address] [place] [address] [phone] * VENOUS BLOOD GAS (01/21/2025 12:50 PM EDT) VBG pH 7.39 7.32 - 7.43 [facility] Comment:METER #: [id number] additional_comment: Cb cabanbe VBG PCO2 43 mmHg [facility] Comment:METER #: [id number] additional_comment: Cb cabanbe VBG PO2 28 mmHg [facility] Comment:METER #: [id number] additional_comment: Cb cabanbe VBG Base Excess 1.3 mmol/L [facility] Comment:METER #: [id number] additional_comment: Cb cabanbe VBG HCO3 26 22 - 26 mmol/L [facility] Comment:METER #: [id number] additional_comment: Cb cabanbe O2 Sat, Ronnie 42.0 % [facility] Comment:METER #: [id number] additional_comment: John wilson 01/21/2025 12:5 0 PM EDT 01/21/2025 12:56 PM EDT Generic External Data Provider LAB BLOOD ORDERAB LES Final Result Performing Organization Address [facility]/ZIP Co de Phone Number [facility] [address] [place] [phone] * (ABNORMAL) Beta-Hydroxybutyrate (01/21/2025 12:47 PM EDT) Pathologist [facility] Beta-Hydroxybu tyrate 2.16(H) 0.02 - 0.27 mmol/L [facility] 01/21/2025 12:4 7 PM EDT 01/21/2025 12:48 PM EDT Generic External Data Provider LAB BLOOD ORDERAB LES Final Result Performing Organization Address [facility] de Phone Number [facility] [address] [place] [phone] * High Sensitivity Troponin I (01/21/2025 11:36 AM EDT) Pathologist [facility] TROPONIN I HIGH SENSITIVITY <2.7 <3.5 - 35.0 ng/L [facility] Comment:The Morfin high sens itivity Troponin-I results should beused in conjunction with other diagnostic information suchas ECG, clinical observations and information, and patientsymptoms to aid in the diagnosis of MT. 01/21/2025 11:3 6 AM EDT 01/21/2025 11:39 AM EDT Generic External Data Provider LAB BLOOD ORDERAB LES Final Result Performing Organization Address [facility] Co de Phone Number [facility] [address] [place] [phone] * (ABNORMAL) CBC auto differential (01/21/2025 11:36 AM EDT) White Blood Count 5.9 4.8 - 10.8 X10*3/uL [facility] Red Blood Count 4.96 4.60 - 5.80 X10*6/uL [facility] Hemoglobin 16.0 14.0 - 18.0 g/dl [facility] Hematocrit 43.2 42.0 - 52.0 % [facility] Mean Corpuscular Volume 87.1 80.0 - 98.0 fL [facility] Mean Corpuscular Hemoglobin 32.3 27.0 - 33.0 pg [facility] Mean Corpuscular HGB Conc 37.0(H) 31.0 - 36.0 g/dl [facility] Red Cell Distribution Width 11.5 11.0 - 16.0 % [facility] Platelet Count 161 160 - 400 X10*3/uL [facility] Mean Platelet Volume 8.7(L) 9.4 - 12.4 fL [facility] Neutrophils Percent Auto 71.0 45 - 73 % [facility] Imm Gran Pct Auto 0.9(H) 0.0 - 0.4 % [facility] Lymphocytes Percent Auto 18.9(L) 20 - 40 % [facility] Monocytes Percent Auto 8.0 2 - 11 % [facility] Eosinophils Percent Auto 0.7 0 - 4 % [facility] Basophils Percent Auto 0.5 0 - 2 % [facility] NRBC Pct Auto 0.0 0.0 - 0.2 /100WBC [facility] Neutrophils Absolute Auto 4.2 2.0 - 8.3 x10*3/uL [facility] Imm Gran Abs Auto 0.05(H) 0.00 - 0.03 X10*3/uL [facility] Lymphocytes Absolute Auto 1.1(L) 1.2 - 4.9 X10*3/uL [facility] Monocytes Absolute Auto 0.5 0.1 - 1.2 X10*3/uL [facility] Eosinophils Absolute Auto 0.0 0.0 - 0.4 X10*3/uL [facility] Basophils Absolute Auto 0.0 0.0 - 0.2 X10*3/uL [facility] NRBC Abs Auto 0.000 0.0 - 0.012 X10*3/uL [facility] 01/21/2025 11:3 6 AM EDT 01/21/2025 11:39 AM EDT Generic External Data Provider LAB BLOOD ORDERAB LES Final Result Performing Organization Address [facility] Co de Phone Number [facility] [address] [place] [address] [phone] * Prothrombin Time-INR (01/21/2025 11:36 AM EDT) Prothrombin Time 11.1 10.9 - 12.4 SEC [facility] INTERNATIONAL NORM RATIO 1.0 0.9 - 1.1 [facility] Comment:INTERNATIONAL NORMAL IZED RATIO (INR) REFERENCE RANGES Reference RangeFor patients not on anticoagulant therapy: 0.9 - 1.1INR ranges for oral anticoagulanttherapy:For prevention and treatment of venous thrombosis and pulmonary embolism: 2.0 - 3.0For acute myocardial infarction with aspirin therapy: 2.0 - 3.0For acute myocardial infarction without aspirin therapy: 3.0 - 4.0For patients with mechanical prosthetic heart valves: 2.5 - 3.5 01/21/2025 11:3 6 AM EDT 01/21/2025 11:39 AM EDT Generic External Data Provider LAB BLOOD ORDERAB LES Final Result Performing Organization Address [facility] Co de Phone Number [facility] [address] [place] [address] [phone] * (ABNORMAL) Triglycerides (01/21/2025 11:36 AM EDT) Triglycerides 2,678(H) <150 mg/dL [facility] Comment:Verified by dilution Desirable Triglyceride: less than 150 mg/dLBorderline High Triglyceride 150-199 mg/dLHigh Triglyceride: 200-499 mg/dLVery High Triglyceride: greater than or equal to 5OO mg/dL 01/21/2025 11:3 6 AM EDT 01/21/2025 11:39 AM EDT Generic External Data Provider LAB BLOOD ORDERAB LES Final Result Performing Organization Address [facility]/ZIP Co de Phone Number [facility] [address] [place] [phone] * Glutamic Acid Decarboxylase 65 Antibody (12/29/2024 11:28 AM EDT) Glutamic acid decarboxylase Ab <5 <5 IU/mL [facility] Comment:This test was perfor med using the GAD65 HARSHAD method,which is standardized against the Internationalreference preparation 97/550.THIS TEST WAS PERFORMED AT:[id number] [place] [address]HPOJLVYJULIETTE GONZALEZ MD,PHD 12/29/2024 11:2 8 AM EDT 12/29/2024 11:28 AM EDT Generic External Data Provider LAB BLOOD ORDERAB LES Final Result Performing Organization Address [facility] de Phone Number [facility] [address] [place] [phone] * C-Peptide (12/29/2024 11:28 AM EDT) C-Peptide 2.99 0.80 - 3.85 ng/mL [facility] Comment:THIS TEST WAS PERFOR MED AT:[employer] [address] [address]KDQRSANNA MIKE MD 12/29/2024 11:2 8 AM EDT 12/29/2024 11:28 AM EDT Generic External Data Provider LAB BLOOD ORDERAB LES Final Result Performing Organization Address [facility] Co de Phone Number [facility] [address] [place] [phone] * Islet Cell Antibody Screen W/Reflex to Titer (12/29/2024 11:28 AM EDT) Islet Cell Antibody Screen NEGATIVE NEGATIVE [facility] Comment:This test was develo ped and its analytical performancecharacteristics have been determined by [employer].It has not been cleared or approved by the FDA. This assayhas been validated pursuant to the CLIA regulations and isused for clinical purposes.THIS TEST WAS PERFORMED AT:[employer]/[id number] [place] [address]CSVSQLEONELA MUHAMMAD MD,PHD,ADELSO Islet Cell Antibody Titer TNP [facility] 12/29/2024 11:2 8 AM EDT 12/29/2024 11:28 AM EDT us Generic External Data Provider LAB BLOOD ORDERAB LES Final Result Performing Organization Address [facility] de Phone Number [facility] [address] [place] [phone] * (ABNORMAL) Albumin, Random Urine W/Creatinine (12/29/2024 11:27 AM EDT) Creatinine, Urine 124.94 mg/dL [facility] Microalbumin Urine 49.0 mg/L [facility] Microalbum Creatinine Ratio Ur 39.2(H) <30 ug/mg cr [facility] Comment:Albumin/Creatinine R atio Reference Ranges: Normal: < 30 ug/mg creatinine Microalbuminuria: 30 - 300 ug/mg creatinineClinical Albuminuria: > 300 ug/mg creatinine 12/29/2024 11:2 7 AM EDT 12/29/2024 12:34 PM EDT us Generic External Data Provider LAB URINE ORDERAB LES Final Result Performing Organization Address [facility] Co de Phone Number [facility] [address] [place] [address] [phone] * (ABNORMAL) POCT glycosylated hemoglobin (Hgb A1c) (10/25/2024 3:30 PM EST) Hemoglobin A1C 9.1(A) 4.0 - 6.0 % QC Media Lot # [id number] Lot# Expiration Date Blood Capillary blood specimen / Unknown 10/25/2024 3:30 PM EST Caprice Purdy MD POINT OF CARE TEST ENTER/E DIT ORDERABLES Final Result * (ABNORMAL) Lipid Panel, Standard (05/04/2024 8:54 AM EDT) Triglycerides 128 <150 mg/dL [facility] Comment:Desirable Triglyceri de: less than 150 mg/dLBorderline High Triglyceride 150-199 mg/dLHigh Triglyceride: 200-499 mg/dLVery High Triglyceride: greater than or equal to 5OO mg/dL Cholesterol 135 <200 mg/dL [facility] Comment:Desirable Cholestero l: less than 200 mg/dLBorderline High Cholesterol: 200-239 mg/dLHigh Cholesterol: greater than 239 mg/dL LDL Cholesterol Calculated 76 <100 mg/dL [facility] Comment:Desirable LDL: less than 100 mg/dLNear Optimal/Above Optimal LDL: 110- 129 mg/dLBorderline High LDL: 130-159 mg/dLHigh LDL: 160-189 mg/dLVery High LDL: greater than or equal to 190 mg/dL HDL Cholesterol 34(L) >40 mg/dL [facility] Comment:Desirable HDL: great er than 40 mg/dL Note: This HDL assay may give artificially low results in patients with liver disease. 05/04/2024 8:54 AM EDT 05/04/2024 8:56 AM EDT us Generic External Data Provider LAB BLOOD ORDERAB LES Final Result [facility] [address] [place] [phone] [phone] * Diabetes Eye Exam (11/15/2023) Eye [...] HIV Ag/Ab Nonreactive 01/03/2019 7:30 PM EDT Historical Provider LAB POINT OF CARE TEST DOCKED DEVICE UNSOLICITED RESULTS Final Result from Last 3 Months or Most Recently Relevant to Health Maintenance Insurance [facility] ONE CARE < 65 [place] [id number] DENTAL - [employer] Care Teams Drapery Head Former Relationship Specialty Start Date End Date [place], MD Caprice [address] [place] [address] PCP - General Family Medicine 10/11/18 Dede Castro, PharmD [address] [place] [address] Pharmacist Internal Medicine 08/20/23 Josué Rievr MD [address] [place] [address] Drive [address] [place] [address] Endocrinology 10/24/24
--- OUTSIDE RECORDS SUMMARY | 2025-02-09 10:27 | XMS_ITS | Encounter Summary ---
Author Organization [facility] Address [address] [place] [address] [address] [place] [address] Care Team Providers Care Mechanic Sound Technician Name Role Phone Caprice Purdy MD Primary Care Provider + [phone] Dede Castro PharmD Unavailable [phone] Dede Castro PharmD Unavailable [phone] Josué River MD Unavailable [phone] Reason for Visit * Reason Comments Med Refill Encounter Details Date Type Department Care Team (Late st Contact Info) Description 06/22/2023 Refill [facility] [address] [place] [address] [phone] Alessandra Tovar MD [address] [place], [place] [phone] Social History Tobacco Use Types Packs/Day Years [...] Description 03/01/2025 9:30 AM EDT Office Visit [facility] [address] [place] [address] Caprice Purdy MD [address] [place] [address] documented as of this encounter Goals Goal [...] documented as of this encounter Care Teams Mechanic Sound Technician Relationship Specialty Start Date End Date Caprice Purdy MD [address] [place] [address] PCP - General Family Medicine 10/11/18 Dede Castro PharmD [address] [place] [address] Pharmacist Internal Medicine 10/08/22 08/19/23 Dede Castro PharmD [address] [place] [address] Pharmacist Internal Medicine 08/20/23 Josué River MD [address] [place] [address] Endocrinology 10/24/24 documented as of this encounter
--- OUTSIDE RECORDS SUMMARY | 2025-02-09 10:27 | XMS_ITS | Encounter Summary ---
Author Organization [facility] Address [address] [place] [address] [address] [place] [address] Care Team Providers Care Ruching Machine Operator Name Role Phone Caprice Purdy MD Primary Care Provider [phone] Dede Castro PharmD Unavailable [phone] Dede Castro PharmD Unavailable [phone] Josué River MD Unavailable [phone] Encounter Details Date Type Department Care Team (Late st Contact Info) Description 12/21/2022 Orders Only [facility] [address] [place] [address] Caprice Purdy MD [address] [place] [address] Recurrent pancreatitis (Primary Dx) Social History Tobacco [...] Description 03/01/2025 9:30 AM EDT Office Visit [facility] [address] [place] [address] Caprice Purdy MD [address] [place] [address] documented as of this encounter Goals Goal [...] documented as of this encounter Care Teams Ruching Machine Operator Relationship Specialty Start Date End Date Caprice Purdy MD [address] [place] [address] PCP - General Family Medicine 10/11/18 Dede Castro PharmD [address] [place] [phone] Pharmacist Internal Medicine 10/08/22 08/19/23 Dede Castro PharmD [address] [place] [phone] Pharmacist Internal Medicine 08/20/23 Josué River MD [address] [place] [address] Drive [address] [place] [phone] Endocrinology 10/24/24 documented as of this encounter
--- OUTSIDE RECORDS SUMMARY | 2025-02-09 10:27 | XMS_ITS | Encounter Summary ---
Author Organization [employer] Address [address] [facility] 7[address] [place] [address] Care Team Providers Care Diamond Mounter Name Role Phone Caprice Purdy MD Primary Care Provider +- [phone] Dede Castro PharmD Unavailable [phone] Josué River MD Unavailable [phone] Encounter Details Date Type Department Care Team (Late st Contact Info) Description 02/09/2025 Orders Only GENERIC EXTERNAL DATA [...] Description 03/01/2025 9:30 AM EDT Office Visit [facility] [address] [place] [phone] Caprice Purdy MD [address] [place] [address] documented as of this encounter Goals Goal [...] WHOLE BLOOD Routine 02/09/2025 9:57 AM EDT documented in this encounter Results * (ABNORMAL) Glucose, Whole Blood (02/09/2025 9:57 AM EDT) Glucose, Whole Blood 228(H) 60 - 115 mg/dL [facility] Comment:METER #: [id number] Testing performed in the Endocrinology Department [address] , [address], [facility]. 02/09/2025 9:57 AM EDT 02/09/2025 10:00 AM EDT us Generic External Data Provider LAB BLOOD ORDERAB LES Final Result [facility] [address] [place] [phone] [phone] documented in this encounter Visit Diagnoses Not on filedocumented in this encounter Additional Health Concerns Assessment Noted Time PHQ-9 Depression Total Score: 0 10/25/19 25 3:28 PM EST documented as of this encounter Care Teams Diamond Mounter Relationship Specialty Start Date End Date Caprice Purdy MD [address] [place] [address] PCP - General Family Medicine 10/11/18 Dede Castro, TysonD [address] [place] [address] Pharmacist Internal Medicine 08/20/23 Josué River MD [address] [place] [address] Endocrinology 10/24/24 documented as of this encounter
--- OUTSIDE RECORDS SUMMARY | 2025-02-09 10:27 | XMS_ITS | Encounter Summary ---
Author Organization [employer] Address [address] [place] [address] 7t [place] [address] Care Team Providers Care Communications Marketing Intern Name Role Phone Caprice Purdy MD Primary Care Provider + [phone] Dede Castro PharmD Unavailable [phone] Dede Castro PharmD Unavailable [phone] Josué River MD Unavailable [phone] Encounter Details Date Type Department Care Team (Late Contact Info) Description 10/07/2022 Orders Only [facility] [address] [place], [place] [phone] Svetlana Serna LPN Social History Tobacco Use [...] Upcoming Encounters Date Type Department Care Team ([facility] Contact Info) Description 03/01/2025 9:30 AM EDT Office Visit [facility] MED[facility]INE [address] [place], [place] [phone] Caprice Purdy MD [address] [place] [address] documented as of this encounter Visit Diagnoses Not on filedocumented in this encounter Care Teams Communications Marketing Intern Relationship Specialty Start Date End Date Caprice Purdy MD [address] [place] [address] PCP - General Family Medicine 10/11/18 Dede Castro PharmD [address] [place] [address] Pharmacist Internal Medicine 10/08/22 08/19/23 Dede Castro PharmD [address] [place] [address] Pharmacist Internal Medicine 08/20/23 Josué River MD [address] [place] [address] [address] [place] [address] Endocrinology 10/24/24 documented as of this encounter
--- OUTSIDE RECORDS SUMMARY | 2025-02-09 10:27 | XMS_ITS | Encounter Summary ---
Author Organization [facility] Address [address] [place] [address] 7 [place] [address] Care Team Providers Care Athletic Scout Name Role Phone Caprice Purdy MD Primary Care Provider + [phone] Dede Castro PharmD Unavailable [phone] Dede Castro PharmD Unavailable [phone] Josué River MD Unavailable [phone] Reason for Visit * Reason Comments Med Refill Encounter Details Date Type Department Care Team (Late st Contact Info) Description 06/16/2023 Refill [facility] [address] [place] [address] [phone] Alessandra Tovar MD [address] [place], [place] [phone] Social History Tobacco Use Types Packs/Day Years [...] Description 03/01/2025 9:30 AM EDT Office Visit [facility] [address] [place] [address] Caprice Purdy MD [address] [place] [address] documented as of this encounter Goals Goal [...] documented as of this encounter Care Teams Athletic Scout Relationship Specialty Start Date End Date Caprice Purdy MD [address] [place] [address] PCP - General Family Medicine 10/11/18 Dede Castro PharmD [address] [place] [address] Pharmacist Internal Medicine 10/08/22 08/19/23 Dede Castro PharmD [address] [place] [address] Pharmacist Internal Medicine 08/20/23 Josué River MD [address] [place] [address] Endocrinology 10/24/24 documented as of this encounter
--- OUTSIDE RECORDS SUMMARY | 2025-02-09 10:27 | XMS_ITS | Encounter Summary ---
Author Organization [employer] [facility] Address [address] [place] [address] 7t [place] [address] Care Team Providers Care Data Entry Supervisor Name Role Phone Caprice Purdy MD Primary Care Provider Dede Castro PharmD Unavailable [phone] Dede Castro PharmD Unavailable [phone] Josué River MD Unavailable [phone] Encounter Details Date Type Department Care Team (Late st Contact Info) Description 06/11/2023 Abstract [facility] [address] [place] [phone] Caprice Purdy MD [address] [place] [address] [phone] Social History Tobacco Use Types Packs/Day Years [...] Description 03/01/2025 9:30 AM EDT Office Visit [facility] [address] [place] [address] [phone] Caprice Purdy MD [address] [place] [address] documented as of this encounter Goals Goal [...] documented as of this encounter Care Teams Data Entry Supervisor Relationship Specialty Start Date End Date Caprice Purdy MD [address] [place] [address] PCP - General Family Medicine 10/11/18 Dede Castro, PharmD [address] [place] [address] Pharmacist Internal Medicine 10/08/22 08/19/23 Dede Castro, PharmD [address] [place] [address] Pharmacist Internal Medicine 08/20/23 Josué River MD [address] [place] [address] Drive [address] [place] [address] Endocrinology 10/24/24 documented as of this encounter
--- OUTSIDE RECORDS SUMMARY | 2025-02-09 10:27 | XMS_ITS | Encounter Summary ---
Author Organization [facility] Address [address] [place] [address] 7t [place] [address] Care Team Providers Care Harvesting Supervisor Name Role Phone Caprice Purdy MD Primary Care Provider Dede Castro PharmD Unavailable [phone] Dede Castro PharmD Unavailable [phone] Josué River MD Unavailable [phone] Encounter Details Date Type Department Care Team (Late st Contact Info) Description 05/18/2023 Abstract [facility] [address] [place] [phone] Caprice Purdy MD [address] [place] [address] [phone] Social History Tobacco Use Types Packs/Day Years [...] Description 03/01/2025 9:30 AM EDT Office Visit [facility] [address] [place] [address] [phone] Caprice Purdy MD [address] [place] [address] documented as of this encounter Goals Goal [...] documented as of this encounter Care Teams Harvesting Supervisor Relationship Specialty Start Date End Date Caprice Purdy MD [address] [place] [address] PCP - General Family Medicine 10/11/18 Dede Castro, PharmD [address] [place] [address] Pharmacist Internal Medicine 10/08/22 08/19/23 Dede Castro, PharmD [address] [place] [address] Pharmacist Internal Medicine 08/20/23 Josué River MD [address] [place] [address] Endocrinology 10/24/24 documented as of this encounter
--- OUTSIDE RECORDS SUMMARY | 2025-02-09 10:27 | XMS_ITS | Encounter Summary ---
Author Organization [employer] Address [address] [place] [address] 7t [place] [address] Care Team Providers Care Sanitation Superintendent Name Role Phone Caprice Purdy MD Primary Care Provider +- [phone] Dede Castro PharmD Unavailable [phone] Josué River MD Unavailable [phone] Reason for Visit * Reason Onset Date Comments Med Refill 07/25/2024 Encounter Details Date Type Department Care Team (Late st Contact Info) Description 07/25/2024 Telephone [facility] [address] [place], [place] [phone] Caprice Purdy MD [address] [place], [place] [phone] Med Refill Social History Tobacco Use Types [...] (NOVOLOG FLEXPEN SC) To be sent to: [facility] - [place], [place] - [address] [facility] documented in this encounter Plan of Treatment Upcoming Encounters Date Type Department Care Team (Late st Contact Info) Description 03/01/2025 9:30 AM EDT Office Visit [facility] [address] [place] [address] Caprice Purdy MD 230 [facility] [place] [address] documented as of this encounter Goals Goal [...] documented as of this encounter Care Teams Sanitation Superintendent Relationship Specialty Start Date End Date Caprice Purdy MD [address] [place] [address] PCP - General Family Medicine 10/11/18 Dede Castro, Marcelino [address] [place] [address] Pharmacist Internal Medicine 08/20/23 Josué River MD [address] [place] [address] Drive [address] [place] [address] Endocrinology 10/24/24 documented as of this encounter
== END 2025-02-09 10:23 | disposition home or self-care (01) ==
LOC: HO.ENCR 09:39
PROVIDERS: PCP Family Medicine; Visit Provider Nurse Practitioner Adult Health
DX: E11.65 Type 2 diabetes mellitus with hyperglycemia (principal); Z79.4 Long term (current) use of insulin; E78.1 Pure hyperglyceridemia
CPT/HCPCS: 99214; G2211

== ENCOUNTER → 2025-02-09 09:38 | Outpatient (BNVA) | payer OTHER, SELFPAY | PROVIDERS: PCP Family Medicine; Visit Provider Nurse Practitioner Adult Health | DX: E11.65 Type 2 diabetes mellitus with hyperglycemia (principal); E78.1 Pure hyperglyceridemia; Z79.4 Long term (current) use of insulin | CPT/HCPCS: 82947; 83036; 99212 ==

== ENCOUNTER 2025-02-12 09:10 | Outpatient (REF) | payer OTHER, SELFPAY ==
--- OUTSIDE RECORDS SUMMARY | 2025-02-12 09:52 | XMS_ITS | Encounter Summary ---
Author Organization [employer] Address [address] [place] [address] 7t [place] [address] Care Team Providers Care Director Of Student Affairs Name Role Phone Caprice Purdy MD Primary Care Provider + [phone] Dede Castro PharmD Unavailable [phone] Dede Castro PharmD Unavailable [phone] Josué River MD Unavailable [phone] Encounter Details Date Type Department Care Team (Late Contact Info) Description 10/27/2022 Orders Only [facility] & PEDS [address] [place], [place] [phone] Svetlana Serna LPN Social History Tobacco Use [...] Description 03/01/2025 9:30 AM EDT Office Visit [facility] MED[facility] [address] [place], [place] [phone] Caprice Purdy MD 230 [place] [address] documented as of this encounter Visit Diagnoses Not on filedocumented in this encounter Care Teams Director Of Student Affairs Relationship Specialty Start Date End Date Caprice Purdy MD [address] [place] [address] PCP - General Family Medicine 10/11/18 Dede Castro PharmD [address] [place] [address] Pharmacist Internal Medicine 10/08/22 08/19/23 Dede Castro PharmD [address] [place] [address] Pharmacist Internal Medicine 08/20/23 Josué River MD [address] [place] [address] [address] [place] [address] Endocrinology 10/24/24 documented as of this encounter
--- OUTSIDE RECORDS SUMMARY | 2025-02-12 09:52 | XMS_ITS | Encounter Summary ---
Author Organization [employer] Address [address] [place] [address] [address]t [place] [address] Care Team Providers Care Anchor Tack Puller Name Role Phone Caprice Purdy MD Primary Care Provider +- [phone] Dede Castro PharmD Unavailable Josué River MD Unavailable [phone] Reason for Visit * Reason Onset Date Comments Med Refill 07/25/2024 Encounter Details Date Type Department Care Team (Late st Contact Info) Description 07/25/2024 Telephone [facility] [address] [place], [place] [phone] Caprice Purdy MD [address] [place], [place] [phone] Med Refill Social History Tobacco Use Types [...] (NOVOLOG FLEXPEN SC) To be sent to: [facility] - [place], [place] - 230 [facility] documented in this encounter Plan of Treatment Upcoming Encounters Date Type Department Care Team (Late st Contact Info) Description 03/01/2025 9:30 AM EDT Office Visit [facility] [address] [place] [address] Caprice Purdy MD [address] [facility] [place] [address] documented as of this encounter Goals Goal [...] documented as of this encounter Care Teams Anchor Tack Puller Relationship Specialty Start Date End Date Caprice Purdy MD [address] [place] [address] PCP - General Family Medicine 10/11/18 Dede Castro, Marcelino [address] [place] [address] Pharmacist Internal Medicine 08/20/23 Josué River MD [address] [place] [address] Drive [address] [place] [address] Endocrinology 10/24/24 documented as of this encounter
--- OUTSIDE RECORDS SUMMARY | 2025-02-12 09:52 | XMS_ITS | Clinical Summary ---
Author Organization [employer] Address [address] [place] [address] Care Team Providers Care Supervisor Anodizing Name Role Phone Caprice Purdy MD Primary Care Provider +- [phone] Dede Castro PharmD Unavailable Josué River MD Unavailable [phone] Allergies No known active allergies Medications [...] hyperglycemia, with long-term current use of insulin ([facility]) TEST BLOOD SUGAR TWICE DAILY 100 each 05/17/20 24 Active glucose blood (FreeStyle Precision Ren Test) test stripIndications:Type 2 diabetes mellitus with hyperglycemia, with long-term current use of insulin ([facility]) Test blood sugar every 8 hours as directed 100 each 11 05/17/20 24 025 Active folic acid (Folvite) 1 MG tabletIndications:Alcoh ol abuse Take 1 tablet (1,000 mcg) by mouth in the morning. 90 tablet 3 05/17/20 24 Active glucose blood (FREESTYLE LITE) test stripIndications:Type 2 diabetes mellitus with hyperglycemia, with long-term current use of insulin ([facility]) Use bid. Dx diabetes 60 each 05/17/20 24 Active metFORMIN XR (Glucophage-XR) 500 MG 24 hr tabletIndications:Type 2 diabetes mellitus with hyperglycemia, with long-term current use of insulin ([facility]) Take 500 mg by mouth 2 times daily. Do not crush, chew, or split. Active insulin pen needle (Sure Comfort Pen [place]) 31G x 5 mm miscIndications:Type 2 diabetes mellitus with hyperglycemia, with long-term current use of insulin ([facility]) USE FOUR TIMES DAILY WITH INSULIN 100 each 11 07/07/20 24 Active Icosapent Ethyl (Vascepa) 1 g capsuleIndications:Fami lial hypertriglyceridemia TAKE 2 CAPSULES BY MOUTH TWICE DAILY IN THE MORNING AND EVENING WITH MEALS 120 capsule 11 09/14/20 24 Active insulin glargine (Lantus) 100 UNIT/ML injectionIndications:Ty pe 2 diabetes mellitus with hyperglycemia, with long-term current use of insulin ([facility]) Inject under the skin at bedtime. [address] River Active lisinopril 20 MG tabletIndications:Hyper tension, essential TAKE 1 TABLET BY MOUTH EVERY MORNING 90 tablet 1 12/12/19 25 Active Alcohol Swabs (Alcohol Prep) 70 % padsIndications:Type 2 diabetes mellitus with hyperglycemia, with long-term current use of insulin ([facility]) USE DIRECTED TO TEST BLOOD SUGAR 100 each 5 01/03/20 25 Active FLUoxetine (PROzac) 20 MG capsuleIndications:Curr ent moderate episode of major depressive disorder without prior episode ([facility]) TAKE 1 CAPSULE BY MOUTH EVERY MORNING 90 capsule 01/05/20 25 Active Active Problems Patient Care Coordination No te Formatting of this note migh t be different from the original. Enrolled in [facility] HTN clinic with Dede Castro, PharmD, CDCES. 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 Denies suicidial [...] [facility] -Today stable, controlled. Denies suicidial or [...] to outpt psychiatrist [facility] Assessment & Plan (06/16/2023 11:16 AM [...] Overview (01/22/2025): Hx multiple bouts of pancreatitis [id number], 12/2023, 04/11/24, 04/19/24, 10/16/24, 01/21/25 likely from EtOH in setting severe of hypertriglyceridemia. -CT 04/11/24 and 10/16/24 abdomen pelvis w IV conFindings consistent with acute pancreatitis. No evidence of pancreatic necrosis or drainable fluid collection. -followed by Dr. River phlebotomy services technician -admissions 04/14/24 and 04/19/24. Acute pancreatitis due to hypertriglyceridemia. Initially admitted to the ICU for insulin drip and started on Lopid. Triglyceride levels decreasing from 2430 to 524. Lipase trended down. He reports that he was taking his fenofibrate daily as scheduled, will stop and replace with gemfibrozil during hospital stay. -admissions 04/14/24 Acute pancreatitis due to hypertriglyceridemia. -presented to [facility] ED 10/16/24, admitted till 10/18/24 for [...] PM EST): Hx multiple bouts of pancreatitis [id number], 12/2023, 04/11/24, 04/19/24., 10/16/24 likely from EtOH in setting severe of hypertriglyceridemia. -CT 04/11/24 and 10/16/24 abdomen pelvis w IV conFindings consistent with acute pancreatitis. No evidence of pancreatic necrosis or drainable fluid collection. -followed by Dr. River phlebotomy services technician -admissions 04/14/24 and 04/19/24. Acute pancreatitis due to hypertriglyceridemia. Initially admitted to the ICU for insulin drip and started on Lopid. Triglyceride levels decreasing from 2430 to 524. Lipase trended down. He reports that he was taking his fenofibrate daily as scheduled, will stop and replace with gemfibrozil during hospital stay. -admissions 04/14/24 Acute pancreatitis due to hypertriglyceridemia. -presented to [facility] ED 10/16/24, admitted till 10/18/24 for evaluation of upper abdominal pain, nausea and vomiting. BG found to be 406 mg/dl and triglycerides 1250 mg/dl. CT abdomen/pelvis showed acute pancreatitis. Admitted to ICU and started on aggressive IVF and insulin drip with down trending triglycerides to 480. Abdominal pain resolved. Assessment & Plan (05/17/2024 10:30 AM EDT): Hx multiple bouts of pancreatitis [id number]/2023, 12/2023, 04/11/24, 04/19/24 likely from EtOH in setting severe of hypertriglyceridemia. -CT 04/11/24 abdomen pelvis w IV conFindings consistent with acute pancreatitis. No evidence of pancreatic necrosis or drainable fluid collection. -followed by Dr. River phlebotomy services technician -admissions 04/14/24 and 04/19/24. Acute pancreatitis [...] hypertriglyceridemia. -he refuses [facility] referral Assessment & Plan (01/17/2024 11:20 AM EDT): Hx multiple bouts of pancreatitis most recents 08/2023 and 12/2023 likely from EtOH in setting severe of hypertriglyceridemia. -followed by Dr. River phlebotomy services technician Assessment & Plan (08/25/2023 9:12 AM EST): Hx multiple bouts of pancreatitis most recent 08/2023 likely from EtOH in setting severe of hypertriglyceridemia. -followed by Dr. River phlebotomy services technician Assessment & Plan (06/16/2023 12:42 PM [...] fluid, no phlegmon,no fluid collection noted per [facility]. -discussed w pt about ETOH [...] -lost care -referred as STAT and requested [facility] senior specialist to Try to get an early apt -In regards Small amount of thrombus in the distal splenic vein in the portal splenic confluence reported in CT scan is a known complications from pancreatitis -from me pt was not started on AC and [...] due after 10/25/25 -eye care facilitated by [facility], last apt 11/15/23 -dental home [facility] -Health care proxy already filed, have a copy at home Assessment & Plan (10/25/2024 3:41 PM EST): -next physical exam due after 10/25/25 -eye care facilitated by [facility], last apt 11/15/23 -dental home is [facility] -Health care proxy already filed, have a copy at home Assessment & Plan (05/17/2024 9:33 AM EDT): -next physical exam due after 08/25/2024 -eye care facilitated by [facility], last apt 11/15/23 -dental home is [facility] -Health care proxy already filed, have a copy at home Assessment & Plan (01/17/2024 11:15 AM EDT): -next physical exam due after 08/25/2024 -eye care facilitated by [facility], last apt 11/15/23 -dental home is [facility] -Health care proxy already filed, have a copy at home Assessment & Plan (08/25/2023 9:41 AM EST): -next physical exam due after 08/25/2024 -eye care facilitated by [facility], last apt 07/15/2022 -dental home is [...] disorder and alcohol use disorder admitted to [facility] 02/24/2022-03/06/2022 for command auditory hallucinations. -follow up [...] disorder and alcohol use disorder admitted to [facility] 02/24/2022-03/06/2022 for command auditory hallucinations. -follow up [...] disorder and alcohol use disorder admitted to [facility] 02/24/2022-03/06/2022 for command auditory hallucinations. -follow up [...] disorder and alcohol use disorder admitted to [facility] 02/24/2022-03/06/2022 for command auditory hallucinations. -follow up with Dr. Lisbeth sanon MD -continue fluoxetine 20mg po daily -He did not f/u with Dr. Bob and refuses psychiatric care. -Mom advised to call 911 if she fears for her safety and Pt understands this plan. Familial hypertriglyceridemia 11/17/2022 Overview (10/25/2024): Likely familial hyperuricacidemia, followed by phlebotomy services technician, Dr. River Lab Results Component Value [...] with gemfibrozil. -Has appt. with Dr. River, phlebotomy services technician 05/2024 Assessment & Plan (10/25/2024 3:41 PM EST): Likely familial hyperuricacidemia, followed by phlebotomy services technicianDr. River Lab Results Component Value Date [...] with gemfibrozil. -Has appt. with Dr. River, phlebotomy services technician 05/2024 Assessment & Plan (05/17/2024 10:25 AM EDT): Likely familial hyperuricacidemia, followed by phlebotomy services technician, Dr. River Lab Results Component Value [...] with gemfibrozil. -Has appt. with Dr. River, phlebotomy services technician 05/2024 Assessment & Plan (01/17/2024 11:18 AM EDT): Likely familial hyperuricacidemia, followed by Dr. River phlebotomy services technician Lab Results Component Value Date CHOLESTEROL [...] Likely familial hyperuricacidemia, followed by Dr. River phlebotomy services technician Lab Results Component Value Date CHOLESTEROL [...] 3:09 PM EDT): From chart review from [facility] ' notes pt used to hanny w phlebotomy services technician Dr. Calabrese,Labs on 11/05/2020 show an [...] 134 daily -continue atorvastatin 80 daily -continue [place] 3 2 gram bid -followed by endocrinology, [...] as pharmacomtherapy, [facility], and [facility] pharmacy smoking cessation clinic Discussed USPSTF recommends [...] as pharmacomtherapy, [facility] smoking [facility], and [facility] pharmacy smoking cessation clinic Discussed USPSTF recommends [...] as pharmacomtherapy, [facility], and [facility] pharmacy smoking cessation clinic Discussed USPSTF recommends [...] long-term current use of insulin 12/09/2021 Overview (02/09/2025): Diabetes is not controlled. Followed by [facility] endocrine, Dr. River since 08/19/2023. Doing much better with phlebotomy services technician and sister involved. Education for insulin pump done 03/15/24. Note from 02/09/25 reveiwed Lab Results Component Value Date HGBA1C 9.1 (A) 10/25/2024 HGBA1C 7.0 (A) 07/20/2024 HGBA1C 7.9 (A) 05/17/2024 Lab Results Component Value Date CREATININE 0.90 01/21/2025 EGFR >60 01/21/2025 MICROALBCREU 39.2 (H) 12/29/2024 MICROALBCREU 32.8 (H) 05/31/2023 LDLCHOLCAL 76 05/04/2024 -German/Arb: lisinopril 20mg daily -Statin therapy: atorvastatin 80mg daily -Diabetic eye exam: 07/15/[address] Callahan -Diabetic foot exam: done 10/25/24 -Continue lifestyle modifications -Continue current medications: -metformin 500mg ER BID -Lantus 40 unidades ayad per endo note 02/06/24 -note from Meter Installer And Remover, Dr. Josué River 03/15/24 reviewed. Being evaluated for insulin pump. -admissions 04/14/24 Acute pancreatitis due to hypertriglyceridemia. Initially admitted to the ICU for insulin drip and started on Lopid. -has appt. to get insulin pump placed 11/09/24 -note from Endocrinology 12/29/24 Beatriz Macias reviewed. From insulin aspart U- 100 (Novolog FlexPen U-100 Insulin aspart) 20 units before breakfast and lunch 18 before supper insulin aspart U-100 (Novolog FlexPen U-100 Insulin aspart) 20 units before breakfast and lunch 18 before supper 30 days 21 mL 11RF Assessment & Plan (10/25/2024 3:40 PM EST): Diabetes is not controlled. Followed by [facility] endocrine, Dr. River since 08/19/2023. Doing much better with phlebotomy services technician and sister involved. Education for insulin [...] before breakfast to avoid hypoglycemia 02/23/24 via phlebotomy services technicianDr River -Lantus 40 unidades ayad per endo note 02/06/24 -note from Meter Installer And Remover, Dr. Josué River 03/15/24 reviewed. Being evaluated for insulin pump. -admissions 04/14/24 Acute pancreatitis due to hypertriglyceridemia. Initially admitted to the ICU for insulin drip and started on Lopid. -has appt. to get insulin pump placed 11/09/24 Assessment & Plan (05/17/2024 10:27 AM EDT): DDiabetes is not controlled. Followed by [facility] endocrine, Dr. River since 08/19/2023. Doing much better with phlebotomy services technician and sister involved. Education for insulin [...] before breakfast to avoid hypoglycemia 02/23/24 via phlebotomy services technician, Dr River -Lantus 40 unidades ayad per endo note 02/06/24 -note from Meter Installer And Remover, Dr. Josué River 03/15/24 reviewed. Being evaluated for insulin pump. -admissions 04/14/24 Acute pancreatitis due to hypertriglyceridemia. Initially admitted to the ICU for insulin drip and started on Lopid. Assessment & Plan (01/17/2024 11:19 AM EDT): Diabetes is not controlled. Followed by [facility] endo since 08/19/2023. Doing much better [...] is not controlled.Seen as new pt at [facility] endo 08/19/2023, note requested. Doing much [...] trigger. Patient would benefit from AUD program, resource recovery engineer, and OP therapy referral; he declined services. [...] sister ?? PLAN: 1. Follow up with [facility]: Not recommended for follow-up 2. Patient goal is to stop drinking alcohol 3. Behavioral Recommendations a. Patient may request to be connected to [facility] at any time b. Patient may reach [...] to outpt psychiatrist to be done by [facility] Resolved Problems Problem Noted Date Diagnosed Date Resolved Date Hypertriglyceridemia 05/27/2023 023 Leukocytosis 05/27/2023 06/16/2023 Encounters Date Type Department Care Team Description 02/09/2025 Orders Only GENERIC EXTERNAL DATA DEPARTMENT Provider, Generic External Data 01/21/2025 Orders Only GENERIC EXTERNAL DATA DEPARTMENT Provider, Generic External Data Acute pancreatitis, unspecified complication status, unspecified pancreatitis type (Primary Dx) 01/03/2025 Refill [facility] [address] [place] [address] Caprice Purdy MD Current moderate episode of major depressive disorder without prior episode ([facility]) 01/01/2025 Refill [facility] [address] [place] [address] Caprice Purdy MD Type 2 diabetes mellitus with hyperglycemia, with long-term current use of insulin ([facility]) 12/29/2024 Telephone [facility] [address] [place] [address] Caprice Purdy MD Results 12/29/2024 Orders Only GENERIC EXTERNAL DATA DEPARTMENT Provider, Generic External Data 12/09/2024 Refill [facility] [address] [place] [address] Caprice Purdy MD Hypertension, essential 11/28/2024 Telephone [facility] [address] [place] [address] Caprice Purdy MD May recalls 11/28/2024 Travel [...] Visit [facility] [address] [place] [address] Caprice Purdy MD [address] [place] [address] Health Maintenance Due Date Last Done Comments [...] - Td or Tdap) 05/17/2034 05/17/2024, 03/07/2014, 06/29/2006, Additional history exists RSV Patients and Patients Aged 60 years [...] , 12/25/2020 Influenza Vaccine Completed 10/25/2024, , 08/18/2023, Additional history exists HIB Vaccines Aged Out [...] hyperglycemia, with long-term current use of insulin ([facility]) PANORAMIC RADIOGRAPHIC IMAGE Routine 06/29/2024 1:00 PM [...] Whole Blood 228(H) 60 - 115 mg/dL [facility] Comment:METER #: [id number] Testing performed in the Endocrinology Department [address] , [address], [place] MD. 02/09/2025 9:57 AM EDT 02/09/2025 10:00 AM EDT us Generic External Data Provider LAB BLOOD ORDERAB LES Final Result Performing Organization Address [facility] Co de Phone Number [facility] [address] [place] [phone] * COVID-19 ID NOW (MORFIN) (01/21/2025 6:11 PM EDT) IDNOW SERIAL# [id number] [facility] COVID-19 TEST Negative Negative [facility] COVID-19 NOTE See Note [facility] Comment: Results are for the identification of SARS-CoV2 RNA. TheSARS-CoV2 RNA is generally detectable in respiratory samplesduring the acute phase of infection. Positive results areindicative of the presence of SARS-CoV-2 RNA; clinicalcorrelation with patient history and other diagnosticinformation is necessary to determine patient infectionstatus. Positive results do not rule out bacterial infectionor co- infection with other viruses.Testing facilities within the [facility] are required to report all positive results [...] 6:11 PM EDT 01/21/2025 6:14 PM EDT us Generic External Data Provider LAB MOLECULAR KLAUDIA GNOSTICS ORDERABLES Final Result Performing Organization Address [facility]/ZIP Co de Phone Number [facility] [address] [place] [phone] * (ABNORMAL) Glucose, Whole Blood (01/21/2025 5:31 PM EDT) Glucose, Whole Blood 214(H) 60 - 115 mg/dL [facility] Comment:METER #: [id number] 01/21/2025 5:31 PM EDT 01/21/2025 5:35 PM EDT Generic External Data Provider LAB BLOOD ORDERAB LES Final Result Performing Organization Address [facility] de Phone Number [facility] [address] [place] [address] [phone] * Lactic Acid (01/21/2025 4:01 PM EDT) Pathologist [facility] Lactic Acid 1.0 0.5 - 2.0 mmol/L [facility] 01/21/2025 4:01 PM EDT 01/21/2025 4:03 PM EDT Generic External Data Provider LAB BLOOD ORDERAB LES Final Result Performing Organization Address [facility] de Phone Number [facility] [address] [place] [phone] * CT Abdomen Pelvis w/ Contrast (01/21/2025 2:55 PM EDT) Anatomical Region Laterality Modality Body, Pelvis, Abdomen Computed T omography 01/21/2025 2:55 PM EDT Narrative 01/21/2025 2:56 PM EDT ? [facility] [place] [address] ? CT Scan Report ? Signed ? Patient: Valencia,Ruy ?MR#: [id number] ? : 1980 ?Acct:[id number] ? Age/Sex: 44 / M ?ADM Date: 04/13/25 ? Loc: HO.ED ? Attending Dr: ? Ordering Physician: Valerie Engel ?? Date of Service: 01/21/25 ?? Procedure(s): CT abdomen pelvis w IV con ?? Accession Number(s): [id number] ? cc: Caprice Purdy MD; Valerie Engel ? Report Number: ?? [id number]: Total DLP = ??476.00 mGy-cm ? CLINICAL [...] ? DD/ 54 ? TD/TT: 01/21/251454 ? Template Inspector: ? Procedure Note Donotuseinterpreter, Image - 01/21/[address] [address] [place] Scan Report Signed Patient: Brennan Valencia#: [id number] : 1980Acct:[id number] Age/Sex: 44 / MADM Date: 01/21/25 Loc: HO.ED Attending Dr: Ordering Physician: Valerie Engel Date of Service: 01/21/25 Procedure(s): CT abdomen pelvis w IV con Accession Number(s): [id number] cc: Caprice Purdy MD; Valerie Engel Report Number: [id number]: Total DLP = 476.00 mGy-cm CLINICAL HISTORY: [...] in OV> 01/21/251455 DD/ 54 TD/TT: 01/21/251454 Template Inspector: [facility] External Provider IMG CT PROCEDURES Final Result * (ABNORMAL) Lipase (01/21/2025 2:16 PM EDT) Only the most recent of2 resultswithin the time period is included. Lipase 756(H) 8 - 78 U/L [facility] 01/21/2025 2:16 PM EDT 01/21/2025 2:18 PM EDT Result [facility] Generic External Data Provider LAB BLOOD ORDERAB LES Final Result [facility] [address] [place] [address] [phone] * (ABNORMAL) Comprehensive Metabolic Panel (01/21/2025 2:16 PM EDT) Only the most recent of2 resultswithin the time period is included. Sodium 137 135 - 145 mmol/L [facility] Potassium 4.5 3.3 - 5.1 mmol/L [facility] Chloride 105 96 - 108 mmol/L [facility] Carbon Dioxide 17(L) 22 - 29 mmol/L [facility] Anion Gap 20 12 - 20 [facility] Urea Nitrogen (BUN) 18(H) 9 - 16 mg/dL [facility] Creatinine, Serum 0.90 0.5 - 1.4 mg/dL [facility] Creatinine Clr Calc Pharmacy 98.5 [facility] Comment:eGFR (calculated fro m the MDRD study equation) and eCrCl(calculated from the Cockcroft-Gault equation) are based ondifferent parameters and may not yield comparable results.If eCrCl result is absurd, please check patient'sheight/weight. Estimated Glomerular Filt Rate >60 [facility] Comment:Chronic Kidney Disea se: Estimated GFR < 60 mL/min/1.98d1Diyodz Kidney Disease: Estimated GFR < 15 mL/min/1.73m2 Glucose 252(H) 60 - 115 mg/dL [facility] Calcium 8.8 8.4 - 10.2 mg/dL [facility] Bilirubin, Total 0.4 0.0 - 1.0 mg/dL [facility] Aspartate Amino Transferase 27 5 - 37 U/L [facility] Alanine Aminotransferase 45(H) 0 - 40 U/L [facility] Total Protein 7.4 6.5 - 8.0 g/dL [facility] Albumin Level 4.2 3.5 - 5.0 g/dL [facility] Alkaline Phosphatase 106 39 - 117 U/L [facility] 01/21/2025 2:16 PM EDT 01/21/2025 2:18 PM EDT us Generic External Data Provider LAB BLOOD ORDERAB LES Final Result Performing Organization Address City/State/[facility] Co de Phone Number [facility] [address] [place] [phone] * VENOUS BLOOD GAS (01/21/2025 12:50 PM EDT) VBG pH 7.39 7.32 - 7.43 [facility] Comment:METER #: [id number] additional_comment: Cb cabanbe VBG PCO2 43 mmHg [facility] Comment:METER #: [id number] additional_comment: Cb cabanbe VBG PO2 28 mmHg [facility] Comment:METER #: [id number] additional_comment: Cb cabanbe VBG Base Excess 1.3 mmol/L [facility] Comment:METER #: [id number] additional_comment: Cb cabanbe VBG HCO3 26 22 - 26 mmol/L [facility] Comment:METER #: [id number] additional_comment: John wilson O2 Sat, Ronnie 42.0 % [facility] Comment:METER #: [id number] additional_comment: John wilson 01/21/2025 12:5 0 PM EDT 01/21/2025 12:56 PM EDT us Generic External Data Provider LAB BLOOD ORDERAB LES Final Result Performing Organization Address [facility] Co de Phone Number [facility] [address] [place] [phone] * (ABNORMAL) Beta-Hydroxybutyrate (01/21/2025 12:47 PM EDT) Beta-Hydroxybu tyrate 2.16(H) 0.02 - 0.27 mmol/L [facility] 01/21/2025 12:4 7 PM EDT 01/21/2025 12:48 PM EDT Generic External Data Provider LAB BLOOD ORDERAB LES Final Result Performing Organization Address [facility] Phone Number [facility] [address] [place] [phone] * High Sensitivity Troponin I (01/21/2025 11:36 AM EDT) TROPONIN I HIGH SENSITIVITY <2.7 <3.5 - 35.0 ng/L [facility] Comment:The Morfin high sens itivity Troponin-I results should beused in conjunction with other diagnostic information suchas ECG, clinical observations and information, and patientsymptoms to aid in the diagnosis of DC. 01/21/2025 11:3 6 AM EDT 01/21/2025 11:39 AM EDT us Generic External Data Provider LAB BLOOD ORDERAB LES Final Result Performing Organization Address [facility] Co de Phone Number [facility] [address] [place] [address] [phone] * (ABNORMAL) CBC auto differential (01/21/2025 11:36 AM EDT) White Blood Count 5.9 4.8 - 10.8 X10*3/uL [facility] Red Blood Count 4.96 4.60 - 5.80 X10*6/uL [facility] Hemoglobin 16.0 14.0 - 18.0 g/dl [facility] Hematocrit 43.2 42.0 - 52.0 % [facility] Mean Corpuscular Volume 87.1 80.0 - 98.0 fL [facility] Mean Corpuscular Hemoglobin 32.3 27.0 - 33.0 pg [facility] Mean Corpuscular HGB Conc 37.0(H) 31.0 - 36.0 g/dl [facility] Red Cell Distribution Width 11.5 11.0 - 16.0 % [facility] Platelet Count 161 160 - 400 X10*3/uL [facility] Mean Platelet Volume 8.7(L) 9.4 - 12.4 fL [facility] Neutrophils Percent Auto 71.0 45 - 73 % [facility] Imm Gran Pct Auto 0.9(H) 0.0 - 0.4 % [facility] Lymphocytes Percent Auto 18.9(L) 20 - 40 % [facility] Monocytes Percent Auto 8.0 2 - 11 % [facility] Eosinophils Percent Auto 0.7 0 - 4 % [facility] Basophils Percent Auto 0.5 0 - 2 % [facility] NRBC Pct Auto 0.0 0.0 - 0.2 /100WBC [facility] Neutrophils Absolute Auto 4.2 2.0 - 8.3 x10*3/uL [facility] Imm Gran Abs Auto 0.05(H) 0.00 - 0.03 X10*3/uL [facility] Lymphocytes Absolute Auto 1.1(L) 1.2 - 4.9 X10*3/uL [facility] Monocytes Absolute Auto 0.5 0.1 - 1.2 X10*3/uL [facility] Eosinophils Absolute Auto 0.0 0.0 - 0.4 X10*3/uL [facility] Basophils Absolute Auto 0.0 0.0 - 0.2 X10*3/uL [facility] NRBC Abs Auto 0.000 0.0 - 0.012 X10*3/uL [facility] 01/21/2025 11:3 6 AM EDT 01/21/2025 11:39 AM EDT Generic External Data Provider LAB BLOOD ORDERAB LES Final Result Performing Organization Address [facility] Co de Phone Number [facility] [address] [place] [address] [phone] * Prothrombin Time-INR (01/21/2025 11:36 AM EDT) Prothrombin Time 11.1 10.9 - 12.4 SEC [facility] INTERNATIONAL NORM RATIO 1.0 0.9 - 1.1 [facility] Comment:INTERNATIONAL NORMAL IZED RATIO (INR) REFERENCE [...] 6 AM EDT 01/21/2025 11:39 AM EDT Hairdressr External Data Provider LAB BLOOD ORDERAB LES Final Result Performing Organization Address [facility] Co de Phone Number [facility] [address] [place] [address] [phone] * (ABNORMAL) Triglycerides (01/21/2025 11:36 AM EDT) Triglycerides 2,678(H) <150 mg/dL [facility] Comment:Verified by dilution Desirable Triglyceride: less than 150 mg/dLBorderline High Triglyceride 150-199 mg/dLHigh Triglyceride: 200-499 mg/dLVery High Triglyceride: greater than or equal to 5OO mg/dL 01/21/2025 11:3 6 AM EDT 01/21/2025 11:39 AM EDT Generic External Data Provider LAB BLOOD ORDERAB LES Final Result Performing Organization Address [facility] de Phone Number [facility] [address] [place] [address] [phone] * Glutamic Acid Decarboxylase 65 Antibody (12/29/2024 11:28 AM EDT) Glutamic acid decarboxylase Ab <5 <5 IU/mL [facility] Comment:This test was perfor med using the GAD65 HARSHAD method,which is standardized against the Internationalreference preparation 97/550.THIS TEST WAS PERFORMED AT:[facility]/[id number] [place] [address]LHTAQYAJULIETTE GONZALEZ MD,PHD 12/29/2024 11:2 8 AM EDT 12/29/2024 11:28 AM EDT Generic External Data Provider LAB BLOOD ORDERAB LES Final Result Performing Organization Address [facility] de Phone Number [facility] [address] [place] [phone] * C-Peptide (12/29/2024 11:28 AM EDT) C-Peptide 2.99 0.80 - 3.85 ng/mL [facility] Comment:THIS TEST WAS PERFOR MED AT:[facility] [employer] [address] [address]SGFIJANNA MIKE MD 12/29/2024 11:2 8 AM EDT 12/29/2024 11:28 AM EDT Generic External Data Provider LAB BLOOD ORDERAB LES Final Result Performing Organization Address [facility]/ZIP Co de Phone Number [facility] [address] [place] [phone] * Islet Cell Antibody Screen W/Reflex to Titer (12/29/2024 11:28 AM EDT) Islet Cell Antibody Screen NEGATIVE NEGATIVE [facility] Comment:This test was develo ped and its analytical performancecharacteristics have been determined by [employer].It has not been cleared or approved by the FDA. This assayhas been validated pursuant to the CLIA regulations and isused for clinical purposes.THIS TEST WAS PERFORMED AT:[employer] [id number] [facility] [place] [address]PBBGWLEONELA MUHAMMAD MD,PHD,ADELSO Islet Cell Antibody Titer TNP [facility] 12/29/2024 11:2 8 AM EDT 12/29/2024 11:28 AM EDT Generic External Data Provider LAB BLOOD ORDERAB LES Final Result Performing Organization Address [facility] Co de Phone Number [facility] [address] [place] [phone] * (ABNORMAL) Albumin, Random Urine W/Creatinine (12/29/2024 11:27 AM EDT) Creatinine, Urine 124.94 mg/dL [facility] Microalbumin Urine 49.0 mg/L H [facility] Microalbum Creatinine Ratio Ur 39.2(H) <30 ug/mg cr [facility] Comment:Albumin/Creatinine R atio Reference Ranges: Normal: < 30 ug/mg creatinine Microalbuminuria: 30 - 300 ug/mg creatinineClinical Albuminuria: > 300 ug/mg creatinine 12/29/2024 11:2 7 AM EDT 12/29/2024 12:34 PM EDT Generic External Data Provider LAB URINE ORDERAB LES Final Result [facility] [address] [place] [phone] * (ABNORMAL) POCT glycosylated hemoglobin (Hgb A1c) (10/25/2024 3:30 PM EST) Hemoglobin A1C 9.1(A) 4.0 - 6.0 % QC Media Lot # [id number] Lot# Expiration Date ,382 Blood Capillary blood specimen / Unknown 10/25/2024 3:30 PM EST Caprice Purdy MD POINT OF CARE TEST ENTER/E DIT ORDERABLES Final Result * (ABNORMAL) Lipid Panel, Standard (05/04/2024 8:54 AM EDT) Triglycerides 128 <150 mg/dL [facility] Comment:Desirable Triglyceri de: less than 150 mg/dLBorderline High Triglyceride 150-199 mg/dLHigh Triglyceride: 200-499 mg/dLVery High Triglyceride: greater than or equal to 5OO mg/dL Cholesterol 135 <200 mg/dL [facility] Comment:Desirable Cholestero l: less than 200 mg/dLBorderline High Cholesterol: 200-239 mg/dLHigh Cholesterol: greater than 239 mg/dL LDL Cholesterol Calculated 76 <100 mg/dL [facility] Comment:Desirable LDL: less than 100 mg/dLNear Optimal/Above Optimal LDL: 110- 129 mg/dLBorderline High LDL: 130-159 mg/dLHigh LDL: 160-189 mg/dLVery High LDL: greater than or equal to 190 mg/dL HDL Cholesterol 34(L) >40 mg/dL [facility] Comment:Desirable HDL: great er than 40 mg/dL Note: This HDL assay may give artificially low results in patients with liver disease. 05/04/2024 8:54 AM EDT 05/04/2024 8:56 AM EDT Generic External Data Provider LAB BLOOD ORDERAB LES Final Result [facility] [address] [place] [phone] [phone] * Diabetes Eye Exam (11/15/2023) Eye Exam Normal Normal Comment:Dr. Callahan Historical Provider MD HEALTH MAINTENANCE Final Result * Hepatitis C Antibody (01/03/2019 7:31 PM EDT) Hepatitis C Antibody Nonreactive Blood 01/03/2019 7:31 PM EDT Historical Provider MD POINT OF CARE TEST ENTER/ EDIT ORDERABLES Final Result * HIV 1/2 ANTIGEN AND ANTIBODY (EXTERNAL RESULTS ONLY) (01/03/2019 7:30 PM EDT) HIV Ag/Ab Nonreactive 01/03/2019 7:30 PM EDT Historical Provider LAB POINT OF CARE TEST DOCKED DEVICE UNSOLICITED RESULTS Final Result from Last 3 Months or Most Recently Relevant to Health Maintenance Insurance [facility] < 65 [place] [id number] Care Teams Supervisor Anodizing Relationship Specialty Start Date End Date Gurwinder, MD Caprice [address] [place] [address] PCP - General Family Medicine 10/11/18 Dede Castro, TysonD [address] [place], [place] Pharmacist Internal Medicine 08/20/23 Josué River MD [address] [place] [address] Endocrinology 10/24/24
--- OUTSIDE RECORDS SUMMARY | 2025-02-12 09:52 | XMS_ITS | Encounter Summary ---
Author Organization [employer] [facility] Address [address] [place] [address] 7t [place] [address] Care Team Providers Care Translator/Interpreter Name Role Phone Caprice Purdy MD Primary Care Provider Dede Castro PharmD Unavailable [phone] Dede Castro PharmD Unavailable [phone] Josué River MD Unavailable [phone] Encounter Details Date Type Department Care Team (Late st Contact Info) Description 05/18/2023 Abstract [facility] [address] [place] [phone] Caprice Purdy MD [address] [place] [address] [phone] Social History Tobacco Use Types Packs/Day Years [...] 9:30 AM EDT Office Visit [facility] [address] [place] [address] [phone] Caprice Purdy MD [address] [place] [address] documented as of this encounter Goals Goal [...] documented as of this encounter Care Teams Translator/Interpreter Relationship Specialty Start Date End Date Caprice Purdy MD [address] [place] [address] PCP - General Family Medicine 10/11/18 Dede Castro, PharmD [address] [place] [address] Pharmacist Internal Medicine 10/08/22 08/19/23 Dede Castro, PharmD [address] [place] [address] Pharmacist Internal Medicine 08/20/23 Josué River MD [address] [place] [address] Endocrinology 10/24/24 documented as of this encounter
--- OUTSIDE RECORDS SUMMARY | 2025-02-12 09:52 | XMS_ITS | Data Portability ---
Author Organization [employer] Address [address] [place] [phone] Care Team Providers Care Metal Turner Name Role Phone [facility] Referring Provider [facility] Primary Care Provider [phone] VELVET PAYNE Primary Care Provider Assessment Encounter [...] Available Not Available No t Available [employer] Nehalem Lite kit USE TO TEST BLOOD SUGAR [...] /min 97 % 97 % 162.56 cm 99367.6 g 97.6 [degF] 137 mm[Hg] 89 mm[Hg] [...] [id number] Jacklyn Lee MD Main - [facility] [address] [place] [phone] 12/18/2022 17:53:32 12/21/2022 10:48:12 Acute pancreatitis [id number] K85.90 [id number] Alex Almeida MD Main - [facility] [address] [place] [phone] 12/13/2023 11:36:28 12/13/2023 18:56:25 Peripheral venous insufficiency [id number] I87.2 This 42-year-ol d male with new [...] [place] Member ID Guarantor Name 12/18/[address] [facility] - DOS PRIOR TO 2023 - DUAL ELIGIBLE (MEDICARE REPLACEMENT/ADV ANTAGE - HMO) Ruy Valencia [id number] Ruy Valencia 12/13/[address] [facility] - DOS ON OR AFTER 2023 - DUAL ELIGIBLE - [employer] OPTIONS AND ONE CARE (MEDICARE REPLACEMENT/ADV ANTAGE - HMO) Ruy Valencia [id number] Ruy Valencia Notes Date Note Type Note [...] ................... ................... ................... ................... ................... ................... ........ Pickup Driver Note From Richa Kim: Community Pickup Driver Ned Kim [email or web address] dispatched to a red for a 41 yom C/O pancreatitis. Upon arrival, the pt was sitting on the couch, awake and alert, oriented to baseline w/ a TBI, in obvious pain. Family/entry level software developer on scene stated that the pt had [...] his pain was 7/10 w/ oxycodone. [facility] was consulted; pt and entry level software developer/family were informed of the causes and treatment of pancreatitis, and that IV pain mgmt was recommended. Pt and entry level software developer were offered IV fluids in the home, but declined, stating that they were going to the ED [facility]. Pt and family were educated and red flags were discussed. ................... ................... ................... ................... ................... ................... ................... ........ Disposition: Fulfilled Jacklyn Lee MD [address] [place] [address],[address], [place], [phone], [employer] 12/18/2022 22:33:18 12/13/2023 text/html HPI: History of [...] NOT NEED FURTHER INFO Alex Almeida MD [address] [place] [address],[address], [place], [phone], [facility] 12/13/2023 11:43:29
--- OUTSIDE RECORDS SUMMARY | 2025-02-12 09:52 | XMS_ITS | Encounter Summary ---
Author Organization [employer] [facility] Address [address] [place] [address] 7t [place] [address] Care Team Providers Care Audio Visual Design Engineer Name Role Phone Caprice Purdy MD Primary Care Provider Dede Castro PharmD Unavailable [phone] Lupe Castrosa PharmD Unavailable [phone] Josué River MD Unavailable [phone] Reason for Visit * Reason Comments Med Refill Encounter Details Date Type Department Care Team (Late st Contact Info) Description 03/15/2023 Refill [facility] [address] [place] [address] Dede Castro, PharmD [address] [place] [address] Hypertension, essential; Familial hypertriglyceridemia; Type 2 diabetes mellitus without complication, without long-term current use of insulin ([facility]); Dyslipidemia Social History Tobacco Use Types Packs/Day [...] 03/01/2025 9:30 AM EDT Office Visit [facility] [address] [place] [address] Caprice Purdy MD [address] [place] [address] documented as of this encounter Goals Goal Patient Goal Type Associated Problems Recent Progress Patient-Stated? Author Blood Pressure < 140/90 Blood Pressure 130/83( 025 3:25 PM EST) No Dede Greenfield PharmD documented as of this encounter Visit Diagnoses Diagnosis Hypertension, essential Unspecified essential hypertension Familial hypertriglyceridemia Pure hyperglyceridemia Type 2 diabetes mellitus without complication, without long-term current use of insulin ([facility]) Dyslipidemia Other and unspecified hyperlipidemia documented in this encounter Additional Health Concerns Assessment Noted Time PHQ-9 Depression Total Score: 0 11/25/19 23 9:39 AM EST documented as of this encounter Care Teams Audio Visual Design Engineer Relationship Specialty Start Date End Date Caprice Purdy MD [address] [place] [address] PCP - General Family Medicine 10/11/18 Dede Castro, PharmD [address] [place] [address] Pharmacist Internal Medicine 10/08/22 08/19/23 Dede Castro, PharmD [address] [place] [address] Pharmacist Internal Medicine 08/20/23 Josué River MD [address] [place] [address] Endocrinology 10/24/24 documented as of this encounter
--- OUTSIDE RECORDS SUMMARY | 2025-02-12 09:52 | XMS_ITS | Encounter Summary ---
Author Organization [facility] [facility] Address [address] [place] [address] 7t [place] [address] Care Team Providers Care Specialized Language Instructor Name Role Phone Caprice Purdy MD Primary Care Provider [phone] Dede Castro PharmD Unavailable [phone] Dede Castro PharmD Unavailable [phone] Josué River MD Unavailable [phone] Encounter Details Date Type Department Care Team (Late st Contact Info) Description 12/21/2022 Orders Only [facility] [address] [place] [address] Caprice Purdy MD [address] [place] [address] Recurrent pancreatitis (Primary Dx) Social History Tobacco [...] Description 03/01/2025 9:30 AM EDT Office Visit [facility] [address] [place] [address] Caprice Purdy MD [address] [place] [address] documented as of this encounter Goals Goal [...] documented as of this encounter Care Teams Specialized Language Instructor Relationship Specialty Start Date End Date Caprice Purdy MD [address] [place] [address] PCP - General Family Medicine 10/11/18 Dede Castro PharmD [address] [place] [address] Pharmacist Internal Medicine 10/08/22 08/19/23 Dede Castro PharmD [address] [place] [address] Pharmacist Internal Medicine 08/20/23 Josué River MD [address] [place] [address] [address] [place] [address] Endocrinology 10/24/24 documented as of this encounter
--- OUTSIDE RECORDS SUMMARY | 2025-02-12 09:52 | XMS_ITS | Encounter Summary ---
Author Organization [employer] [facility] Address [address] [place] [address] [address] [place] [address] Care Team Providers Care Shrimper Name Role Phone Caprice Purdy MD Primary Care Provider + [phone] Dede Castro PharmD Unavailable [phone] Dede Castro PharmD Unavailable [phone] Josué River MD Unavailable [phone] Reason for Visit * Reason Comments Med Refill Encounter Details Date Type Department Care Team (Late st Contact Info) Description 06/22/2023 Refill [facility] [address] [place] [address] [phone] Alessandra Tovar MD [address] [place], [place] [phone] Social History Tobacco Use Types Packs/Day Years [...] Description 03/01/2025 9:30 AM EDT Office Visit [facility] [address] [place] [address] Caprice Purdy MD [address] [place] [address] documented as of this encounter Goals Goal [...] documented as of this encounter Care Teams Shrimper Relationship Specialty Start Date End Date Caprice Purdy MD [address] [place] [address] PCP - General Family Medicine 10/11/18 Dede Castro PharmD [address] [place] [address] Pharmacist Internal Medicine 10/08/22 08/19/23 Dede Castro PharmD [address] [place] [address] Pharmacist Internal Medicine 08/20/23 Josué River MD [address] [place] [address] Endocrinology 10/24/24 documented as of this encounter
--- OUTSIDE RECORDS SUMMARY | 2025-02-12 09:52 | XMS_ITS | Encounter Summary ---
Author Organization [facility] [facility] Address [address] [place] [address] 7[address] [place] [address] Care Team Providers Care Reading Assistant Name Role Phone Caprice Purdy MD Primary Care Provider BryansDede Conti PharmD Unavailable [phone] BryansGallito Dede PharmD Unavailable [phone] Josué River MD Unavailable [phone] Reason for Visit * Reason Comments Med Refill Encounter Details Date Type Department Care Team (Late st Contact Info) Description 10/07/2022 Refill [facility] [address] [place] [address] BryansDede Conti, PharmD [address] [place] [address] Hypertension, essential Social History Tobacco Use Types [...] 03/01/2025 9:30 AM EDT Office Visit [facility] [address] [place] [address] Caprice Purdy MD [address] [place] [address] documented as of this encounter Visit Diagnoses Diagnosis Hypertension, essential Unspecified essential hypertension documented in this encounter Care Teams Reading Assistant Relationship Specialty Start Date End Date Caprice Purdy MD [address] [place] [address] PCP - General Family Medicine 10/11/18 Dede Castro, PharmD [address] [place] [address] Pharmacist Internal Medicine 10/08/22 08/19/23 Dede Castro PharmD [address] [place] [address] Pharmacist Internal Medicine 08/20/23 Josué River MD [address] [place] [address] Endocrinology 10/24/24 documented as of this encounter
--- OUTSIDE RECORDS SUMMARY | 2025-02-12 09:52 | XMS_ITS | Encounter Summary ---
Author Organization [employer] Address [address] [facility] [address] [place] [address] Care Team Providers Care Cut Off Man Name Role Phone Caprice Purdy MD Primary Care Provider [phone]- [phone] Dede Castro PharmD Unavailable [phone] Josué River MD Unavailable [phone] Encounter Details Date Type Department Care [...] Description 03/01/2025 9:30 AM EDT Office Visit [facility] [address] [place] [address] Caprice Purdy MD [address] [place] [address] documented as of this encounter Goals Goal [...] Whole Blood 228(H) 60 - 115 mg/dL [facility] Comment:METER #: [id number] Testing performed in the Endocrinology Department [address] , [address], [facility]. 02/09/2025 9:57 AM EDT 02/09/2025 10:00 AM EDT us Generic External Data Provider LAB BLOOD ORDERAB LES Final Result [facility] [address] [place] [address] [phone] documented in this encounter Visit Diagnoses Not on filedocumented in this encounter Additional Health Concerns Assessment Noted Time PHQ-9 Depression Total Score: 0 10/25/19 25 3:28 PM EST documented as of this encounter Care Teams Cut Off Man Relationship Specialty Start Date End Date Caprice Purdy MD [address] [place] [address] PCP - General Family Medicine 10/11/18 Dede Castro, TysonD [address] [place] [address] Pharmacist Internal Medicine 08/20/23 Josué River MD [address] [place] [address] Endocrinology 10/24/24 documented as of this encounter
--- OUTSIDE RECORDS SUMMARY | 2025-02-12 09:52 | XMS_ITS | Encounter Summary ---
Author Organization [employer] [facility] Address [address] [place] [address] [address] [place] [address] Care Team Providers Care Ep Tech Name Role Phone Caprice Purdy MD Primary Care Provider + [phone] Dede Castro PharmD Unavailable [phone] Dede Castro PharmD Unavailable [phone] Josué River MD Unavailable [phone] Reason for Visit * Reason Comments Med Refill Encounter Details Date Type Department Care Team (Late st Contact Info) Description 06/16/2023 Refill [facility] [address] [place] [address] [phone] Alessandra Tovar MD [address] [place], [place] [phone] Social History Tobacco Use Types Packs/Day Years [...] Description 03/01/2025 9:30 AM EDT Office Visit [facility] [address] [place] [address] Caprice Purdy MD [address] [place] [address] documented as of this encounter Goals Goal [...] documented as of this encounter Care Teams Ep Tech Relationship Specialty Start Date End Date Caprice Purdy MD [address] [place] [address] PCP - General Family Medicine 10/11/18 Dede Castro PharmD [address] [place] [address] Pharmacist Internal Medicine 10/08/22 08/19/23 Dede Castro PharmD [address] [place] [address] Pharmacist Internal Medicine 08/20/23 Josué River MD [address] [place] [address] Endocrinology 10/24/24 documented as of this encounter
--- OUTSIDE RECORDS SUMMARY | 2025-02-12 09:52 | XMS_ITS | Encounter Summary ---
Author Organization [employer] Address [address] [place] [address] 7[address] [place] [address] Care Team Providers Care Air Vice Marshal Name Role Phone Caprice Purdy MD Primary Care Provider + [phone] Dede Castro PharmD Unavailable [phone] Dede Castro PharmD Unavailable [phone] Josué River MD Unavailable [phone] Encounter Details Date Type Department Care Team (Late Contact Info) Description 10/07/2022 Orders Only [facility]S [address] [place], [place] [phone] Svetlana Serna LPN Social History Tobacco Use [...] Upcoming Encounters Date Type Department Care Team ([facility] Contact Info) Description 03/01/2025 9:30 AM EDT Office Visit [facility] MEDICINE [address], [place] [phone] Caprice Purdy MD [address] [place] [address] documented as of this encounter Visit Diagnoses Not on filedocumented in this encounter Care Teams Air Vice Marshal Relationship Specialty Start Date End Date Caprice Purdy MD [address] [place] [phone] PCP - General Family Medicine 10/11/18 Dede Castro PharmD [address] [place] [phone] Pharmacist Internal Medicine 10/08/22 08/19/23 Dede Castro PharmD [address] [place] [phone] Pharmacist Internal Medicine 08/20/23 Josué River MD [address] [place] [address] Drive [address] [place] [phone] Endocrinology 10/24/24 documented as of this encounter
--- OUTSIDE RECORDS SUMMARY | 2025-02-12 09:52 | XMS_ITS | Encounter Summary ---
Author Organization [facility] Address [address] [place] [address] 7t [place] [address] Care Team Providers Care Business Management Manager Name Role Phone Caprice Purdy MD Primary Care Provider Dede Castro PharmD Unavailable [phone] Dede Castro PharmD Unavailable [phone] Josué River MD Unavailable [phone] Encounter Details Date Type Department Care Team (Late st Contact Info) Description 06/11/2023 Abstract [facility] MED[facility]INE [address] [place] [phone] Caprice Purdy MD [address] [place] [address] [phone] Social History Tobacco Use Types Packs/Day Years [...] Description 03/01/2025 9:30 AM EDT Office Visit [facility] [address] [place] [address] [phone] Caprice Purdy MD [address] [place] [address] documented as of this encounter Goals Goal [...] documented as of this encounter Care Teams Business Management Manager Relationship Specialty Start Date End Date Caprice Purdy MD [address] [place] [address] PCP - General Family Medicine 10/11/18 Dede Castro, PharmD [address] [place] [address] Pharmacist Internal Medicine 10/08/22 08/19/23 Dede Castro, PharmD [address] [place] [phone] Pharmacist Internal Medicine 08/20/23 Josué River MD [address] [place] [address] Drive [address] [place] [address] Endocrinology 10/24/24 documented as of this encounter
[2025-02-12 11:22] LABS: Amylase 30 U/L (28-100)
[2025-02-12 11:28] LABS: Cholesterol 237 mg/dL (<200); Lipase 12 U/L (8-78); Triglycerides 1084 mg/dL (<150)
[2025-02-12 11:49] LABS: HDL Cholesterol 32 mg/dL (>40)
== END 2025-02-12 09:11 | disposition home or self-care (01) ==
LOC: HO.LAB 09:10
PROVIDERS: Student in an Organized Health Care Education/Training Program; PCP Family Medicine; Visit Provider Nurse Practitioner Adult Health
DX: K85.90 Acute pancreatitis without necrosis or infection, unspecified (principal); E78.1 Pure hyperglyceridemia
CPT/HCPCS: 36415; 80061; 82150; 83690

== ENCOUNTER 2025-03-09 09:10 | Outpatient (AMB) | payer OTHER, SELFPAY ==
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
[2025-03-09 09:16] VITALS: BP 120/80; PULSE 79; O2SAT 98; BMI 29.9
--- OUTSIDE RECORDS SUMMARY | 2025-03-09 09:21 | XMS_ITS | Encounter Summary ---
Author Organization [employer] [facility] Address [address] [place] [address] 7t [place] [address] Care Team Providers Care Pie Topper Name Role Phone Caprice Purdy MD Primary Care Provider Dede Castro PharmD Unavailable [phone] Dede Castro PharmD Unavailable [phone] Josué River MD Unavailable [phone] Reason for Visit * Reason Comments Med Refill Encounter Details Date Type Department Care Team (Late st Contact Info) Description 03/15/2023 Refill [facility] MEDICINE [address] [place] [address] Dede Castro, PharmD [address] [place] [address] Hypertension, essential; Familial hypertriglyceridemia; Type 2 diabetes mellitus without complication, without long-term current use of insulin ([facility]); Dyslipidemia Social History Tobacco Use Types [...] Care Team (Late st Contact Info) Description 03/13/2025 10:00 AM EDT Medication Management [facility] MEDICINE [address] [place] [address] Dede Castro PharmD [address] [place] [address] documented as of this encounter Goals Goal Patient Goal Type Associated Problems Recent Progress Patient-Stated? Author Blood Pressure < 140/90 Blood Pressure 146/82( 025 9:30 AM EDT) No Dede Greenfield PharmD documented as of this encounter Visit Diagnoses Diagnosis Hypertension, essential Unspecified essential hypertension Familial hypertriglyceridemia Pure hyperglyceridemia Type 2 diabetes mellitus without complication, without long-term current use of insulin ([facility]) Dyslipidemia Other and unspecified hyperlipidemia documented in this encounter Additional Health Concerns Assessment Noted Time PHQ-9 Depression Total Score: 0 11/25/19 23 9:39 AM EST documented as of this encounter Care Teams Pie Topper Relationship Specialty Start Date End Date Caprice Purdy MD [address] [place] [address] PCP - General Family Medicine 10/11/18 Dede Castro PharmD [address] [place] [address] Pharmacist Internal Medicine 10/08/22 08/19/23 Dede Castro PharmD [address] [place] [address] Pharmacist Internal Medicine 08/20/23 Josué River MD [address] [place] [address] Endocrinology 10/24/24 documented as of this encounter
[2025-03-09 09:23] LABS: Glucose, Whole Blood 239 mg/dL (60-115)
== END 2025-03-09 09:37 | disposition home or self-care (01) ==
LOC: HO.ENCR 09:11
PROVIDERS: PCP Family Medicine; Visit Provider Nurse Practitioner Adult Health
DX: E11.65 Type 2 diabetes mellitus with hyperglycemia (principal); Z79.4 Long term (current) use of insulin; E78.1 Pure hyperglyceridemia
CPT/HCPCS: 95251; 99214; G2211

== ENCOUNTER 2025-03-09 09:10 | Outpatient (REF) | payer OTHER, SELFPAY ==
[2025-03-09 12:28] LABS: Creatinine Urine 99.25 mg/dL
== END 2025-03-09 09:11 | disposition home or self-care (01) ==
LOC: HO.LAB 09:10
PROVIDERS: PCP Family Medicine; Visit Provider Nurse Practitioner Adult Health
DX: E11.65 Type 2 diabetes mellitus with hyperglycemia (principal); E78.1 Pure hyperglyceridemia; Z79.4 Long term (current) use of insulin
CPT/HCPCS: 82043; 82570; 82947; 99212

== ENCOUNTER 2025-04-25 19:32 | Emergency (ER) | payer OTHER, SELFPAY ==
[2025-04-25 19:35] VITALS: BP 123/74; PULSE 93; RESP 16; TEMP 37; O2SAT 94; BMI 29.6
--- NOTE | 2025-04-25 19:41 | ED.GENADULT ---
HPI - General Adult General Chief complaint: Recheck/Abnormal Lab/Rx Stated complaint: Low blood sugar Related Data Home Medications ?Medication ?Instructions ?Recorded ?Confirmed fluoxetine 20 mg capsule 20 mg PO DAILY 08/06/20 10/16/24 blood sugar diagnostic #10 ea 02/04/21 01/05/24 folic acid 1 mg tablet 1 mg PO DAILY 04/28/23 10/16/24 lisinopril 20 mg tablet 20 mg PO DAILY 04/28/23 10/16/24 thiamine HCl (vitamin B1) 100 mg 100 mg PO DAILY 04/28/23 10/16/24 tablet amlodipine 5 mg tablet 5 mg PO DAILY 01/05/24 10/16/24 atorvastatin 80 mg tablet 80 mg PO BEDTIME 01/05/24 10/16/24 pen needle, diabetic 31 gauge x #1,200 ea 02/09/2512/24 Previous Rx's ?Medication ?Instructions ?Recorded lancets 33 gauge #100 ea 09/01/23 gemfibrozil 600 mg tablet 600 mg PO BIDAC 30 days #60 tabs 04/13/24 glucagon 3 mg/actuation nasal 3 mg intranasal ONCE PRN 07/12/24 spray (Baqsimi) Unresponsive hypoglycemia, may repeat in 15 minute 30 days #2 ea acetone (urine) test (Ketone Urine #25 ea 07/13/24 Test strips) ondansetron 4 mg disintegrating 4 mg PO Q8H PRN nausea and 10/18/24 tablet vomiting #20 tabs metformin 500 mg tablet,extended 500 mg PO BID 30 days #60 tabs 12/27/24 release 24 hr Dexcom G7 Clinical Nursing Director #1 ea 02/09/25 (blood-glucose,waste cotton cleaner,cont) icosapent ethyl 1 gram capsule 2 g (2 x 1 gram) PO BID 30 days 02/09/25 (Vascepa) #120 caps insulin aspart U-100 100 unit/mL See Rx Instructions subcut TID 30 03/14/25 (3 mL) subcutaneous pen (Novo days #21 mL FlexPen U-100 Insulin aspart) insulin glargine 100 unit/mL (3 42 unit (0.42 mL) subcut BEDTIME 04/03/25 mL) subcutaneous pen (Lantus 30 days #15 mL Solostar U-100 Insulin) blood-glucose sensor (Dexcom G7 #9 ea 04/26/25 Sensor device) glucose 4 gram chewable tablet 16 g (4 x 4 gram) PO Q15M PRN 04/26/25 (Dex4 Glucose) hypoglycemia 30 days #30 tabs Allergies Allergy/AdvReac Type Severity Reaction Status Date / Time No Known Allergies Allergy Verified 04/25/25 19:39 [facility] Past Medical History Medical History (Updated 04/26/25 @ 13:25 by RIA Rosas) Pancreatitis Pancreatitis Hypertriglyceridemia, essential Uncontrolled type 2 diabetes mellitus with hyperglycemia, with long-term current use of insulin Diabetes mellitus Diabetes mellitus with gastroparesis Alcohol use History of pancreatitis History of traumatic brain injury Obesity (BMI 30-39.9) Prediabetes Hypertriglyceridemia HTN (hypertension) Surgical History No pertinent past surgical history Family History Family History Father No problems noted. Mother No problems noted. 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) Alcohol intake: current Alcohol intake frequency: holidays/special occasions only Alcohol type: beer Comment: camera removed, pt cooperative Patient Tobacco Use Status: Never used Tobacco Tobacco use type: Cigarette Cigarettes Per Day: 3 e-Cigarette/Vaping Use: Never Used Second Hand Smoke Exposure: Yes Advance Directives: Yes Advance Directives on File: Yes Advance Directives Date on File: 01/10/24 Do you have a plan to hurt others: No Plan service: No Current occupational status: unemployed and disabled Current occupation: and disability Physical Exam ED Vital Signs: Vital Signs - 24 hr 04/25/25 19:35 Temperature 98.6 F Pulse Rate 93 Respiratory Rate 16 Blood Pressure 123/74 Pulse Oximetry 94 Oxygen Delivery Method Room Air BMI result Body Mass Index 29.6 Course Course Course Narrative: 04/25/251941 RIA Rosas This is a Rapid Medical Examination (RME) performed by Jessica Engel PA-C in triage. Full HPI, ROS, assessment and treatment plan per primary provider in the Main ED. Hx: 44 yo M hx of here for eval of low blood sugar readings today. Monitors via fingerstick at home. around 1330, glucose wsa 35. took 6 glucose tabs and drank OJ with improvement to 182. rechecked around 1600 and BS was 44. admits to administering 18 units around 1845. Plan: labs, poc glucose, UA Reevaluation(s) Reevaluation #1: Patient left the emergency department before myself or any of the other clinicians could review or explain physical exam findings, test results, need or lack there of for additional testing, treatment options, or a treatment plan. Medical Decision Making Lab Data 04/25/25 19:50 04/25/25 19:50 Labs: Lab Results 04/25/25 04/25/25 Range/Units 19:50 20:02 WBC 7.1 (4.8-10.8) X10*3/uL RBC 4.18 L (4.60-5.80) X10*6/uL Hgb 13.5 L (14.0-18.0) g/dl Hct 36.0 L (42.0-52.0) % MCV 86.1 (80.0-98.0) fL MCH 32.3 (27.0-33.0) pg MCHC 37.5 H (31.0-36.0) g/dl RDW 11.9 (11.0-16.0) % Plt Count 192 (160-400) X10*3/uL MPV 8.9 L (9.4-12.4) fL Immature Gran % (Auto) 0.6 H (0.0-0.4) % Neut % (Auto) 67.6 (45-73) % Lymph % (Auto) 21.5 (20-40) % Bradford % (Auto) 8.6 (2-11) % Eos % (Auto) 1.3 (0-4) % Baso % (Auto) 0.4 (0-2) % Lymph # (Auto) 1.5 (1.2-4.9) X10*3/uL Bradford # (Auto) 0.6 (0.1-1.2) X10*3/uL Eos # (Auto) 0.1 (0.0-0.4) X10*3/uL Baso # (Auto) 0.0 (0.0-0.2) X10*3/uL Abs Immat Gran (auto) 0.04 H (0.00-0.03) X10*3/uL Absolute Neuts (auto) 4.8 (2.0-8.3) x10*3/uL Absolute Nucleated RBC 0.040 H (0.0-0.012) X10*3/uL Nucleated RBC % (auto) 0.6 H (0.0-0.2) /100WBC Sodium 140 (135-145) mmol/L Potassium 3.6 (3.3-5.1) mmol/L Chloride 109 H (96-108) mmol/L Carbon Dioxide 20 L (22-29) mmol/L Anion Gap 15 (12-20) BUN 24 H (9-16) mg/dL Creatinine 1.25 (0.5-1.4) mg/dL Estim Creat Clear Calc 71.2 Estimated GFR > 60 POC Glucose 126 H (60-115) mg/dL Random Glucose 103 (60-115) mg/dL Calcium 9.5 D (8.4-10.2) mg/dL Magnesium 2.0 (1.6-2.6) mg/dL Total Bilirubin 0.2 (0.0-1.0) mg/dL AST 24 (5-37) U/L ALT 34 (0-40) U/L Alkaline Phosphatase 96 (39-117) U/L Total Protein 8.4 H (6.5-8.0) g/dL Albumin 4.5 (3.5-5.0) g/dL Lipase 19 (8-78) U/L Discharge Plan Discharge Clinical Impression: Hypoglycemia Patient Disposition: Left W/O Completing Treatment Prescriptions: No Action (DME) lancets 33 gauge misc See Rx Instructions Not Applicable BID Qty: 100 0RF Rx Instructions: As directed metformin 500 mg tablet extended release 24 hr 500 mg PO BID 30 Days Qty: 60 5RF insulin aspart U-100 [Novolog FlexPen U-100 Insulin] 100 unit/mL (3 mL) insulin pen See Rx Instructions subcut TID MDD 56 units 30 Days Qty: 21 11RF Rx Instructions: 20 units before breakfast, l8 units before lunch and supper insulin glargine [Lantus Solostar U-100 Insulin] 100 unit/mL (3 mL) insulin pen 42 unit subcut BEDTIME 30 Days Qty: 15 6RF glucose [Dex4 Glucose] 4 gram tablet,chewable 16 g PO Q15M MDD 16 tablets PRN (Reason: hypoglycemia) 30 Days Qty: 30 3RF Rx Instructions: every 15 minutes until symptoms of low blood sugar are controlled (DME) Dexcom G7 Sensor Device See Rx Instructions .ROUTE .MEDSUPPLY Qty: 9 4RF Rx Instructions: every ten days for continous use fluoxetine 20 mg Capsule 20 mg PO DAILY lisinopril 20 mg tablet 20 mg PO DAILY thiamine HCl (vitamin B1) 100 mg tablet 100 mg PO DAILY folic acid 1 mg tablet 1 mg PO DAILY atorvastatin 80 mg tablet 80 mg PO BEDTIME amlodipine 5 mg tablet 5 mg PO DAILY gemfibrozil 600 mg Tablet 600 mg PO BIDAC 30 Days Qty: 60 0RF ondansetron 4 mg tablet,disintegrating 4 mg PO Q8H PRN (Reason: nausea and vomiting) Qty: 20 0RF (DME) blood sugar diagnostic Strip See Rx Instructions Not Applicable BID Qty: 10 Rx Instructions: As directed Baqsimi 3 mg/actuation spray,non-aerosol 3 mg intranasal ONCE PRN (Reason: Unresponsive hypoglycemia, may repeat in 15 minute) 30 Days Qty: 2 1RF (DME) Ketone Urine Test Strip See Rx Instructions .ROUTE .MEDSUPPLY Qty: 25 1RF Rx Instructions: prn glucose over 250, nausea, vomiting, illness tid (DME) pen needle, diabetic 31 gauge x 3/16 needle See Rx Instructions .ROUTE QID Qty: 1200 Rx Instructions: As directed (DME) Dexcom G7 Clinical Nursing Director Misc See Rx Instructions .ROUTE .MEDSUPPLY Qty: 1 0RF Rx Instructions: As directed for use with dexcom sensors icosapent ethyl [Vascepa] 1 gram capsule 2 g PO BID 30 Days Qty: 120 11RF Discharge Date/Time: 04/26/25 03:15
[2025-04-25 19:57] LABS: MANUAL DIFF FLAG NO
[2025-04-25 20:07] LABS: Glucose, Whole Blood 126 mg/dL (60-115)
[2025-04-25 20:22] LABS: Albumin Level 4.5 g/dL (3.5-5.0); Alkaline Phosphatase 96 U/L (39-117); Anion Gap 15 (12-20); Aspartate Amino Transferase 24 U/L (5-37); Blood Urea Nitrogen 24 mg/dL (9-16); Calcium 9.5 mg/dL (8.4-10.2); Carbon Dioxide 20 mmol/L (22-29); Chloride 109 mmol/L (96-108); Creatinine Clr Calc Pharmacy 71.2; Estimated Glomerular Filt Rate > 60; Lipase 19 U/L (8-78); Magnesium 2.0 mg/dL (1.6-2.6); Potassium 3.6 mmol/L (3.3-5.1); Sodium 140 mmol/L (135-145); Total Protein 8.4 g/dL (6.5-8.0)
[2025-04-25 20:26] LABS: Hematocrit 36.0 % (42.0-52.0); Hemoglobin 13.5 g/dl (14.0-18.0); Imm Gran Abs Auto 0.04 X10*3/uL (0.00-0.03); Imm Gran Pct Auto 0.6 % (0.0-0.4); Lymphocytes Absolute Auto 1.5 X10*3/uL (1.2-4.9); Mean Corpuscular HGB Conc 37.5 g/dl (31.0-36.0); Mean Corpuscular Hemoglobin 32.3 pg (27.0-33.0); Mean Corpuscular Volume 86.1 fL (80.0-98.0); NRBC Abs Auto 0.040 X10*3/uL (0.0-0.012); NRBC Pct Auto 0.6 /100WBC (0.0-0.2); Platelet Count 192 X10*3/uL (160-400); Red Blood Count 4.18 X10*6/uL (4.60-5.80); White Blood Count 7.1 X10*3/uL (4.8-10.8)
[2025-04-25 21:50] LABS: Alanine Aminotransferase 34 U/L (0-40)
--- OUTSIDE RECORDS SUMMARY | 2025-04-26 03:09 | XMS_ITS | Data Portability ---
Author Organization [employer] [facility], [facility] Address [address] [place] [address] Care Team Providers Care Metal Molder Name Role Phone [employer] Referring Provider VELVET PAYNE Primary Care Provider [facility] OTHER Assessment Encounter Date Assessment Date Assessment LastModified [...] Available Not Available No t Available [employer] [place] Lite kit USE TO TEST BLOOD SUGAR [...] Body height Body weight Body temperature Systolic And Diastolic Provider Name and Address Organization Details Last Updated DateTime 4 90 /min 16 /min 97 % 97 % 162.56 cm 93490.6 g 97.6 [degF] 137/89 mm[Hg] Not Available [facility] 4 11:36:44 Date Recorded Respiratory rate Oxygen saturation Oxygen saturation in Arterial blood by Pulse oximetry Body temperature Heart rate Body temperature Heart rate Oxygen saturation Oxygen saturation in Arterial blood by Pulse oximetry Respiratory rate Systolic And Diastolic Systolic And Diastolic Provider Name and Address Organization Details Last Updated DateTime 3 20 /min 94 % 94 % 99.2 [degF] 123 /min 99.2 [degF] 123 /min 94 % 94 % 20 /min 116/72 mm[Hg] 116/72 mm[Hg] Not Available [facility] production 18:52:45 Social History None recorded. Functional Status None recorded. Mental Status None recorded. Family History Nothing Reported. Medical History No medical history recorded. Past Encounters Encounter ID Performer Location Encounter Start Date Encounter Closed Date Diagnosis/Indication Diagnosis SNOMED-CT Code Diagnosis ICD10 Code Diagnosis Note [id number] Jacklyn Lee MD [facility] [address] [place] [phone] 12/18/2022 17:53:32 12/21/2022 10:48:12 Acute pancreatitis 921851650 K85.90 [id number] Alex Almeida MD Main - [facility] [address] [place] [address] [phone] 12/13/2023 11:36:28 12/13/2023 18:56:25 Peripheral venous insufficiency [id number] I87.2 This 42-year-ol d male with new [...] Recorded Advance Directives Directive None Recorded Payers Insurance Date Sequence Insurance Name Policy Number Policy [place] Covered Member ID [place] Member ID Guarantor Name 10/16/2024 1 [facility] - DOS PRIOR TO 2023 - DUAL ELIGIBLE (MEDICARE REPLACEMENT/ADV ANTAGE - HMO) Ruy Valencia [id number] Ruy Valencia 04/25/2025 1 [facility] - DOS ON OR AFTER 2023 - DUAL ELIGIBLE - GROUP HOME OPTIONS AND ONE CARE (MEDICARE REPLACEMENT/ADV ANTAGE - HMO) Ruy Valencia [id number] Ruy Valencia Notes Date Note Type Note [...] ................... ................... ................... ................... ................... ................... ........ Manager Summer Note From Richa Kim: Community Manager Summer Ned Kim SC8 dispatched to a [facility] for a 41 yom C/O pancreatitis. Upon arrival, the pt was sitting on the couch, awake and alert, oriented to baseline w/ a TBI, in obvious pain. Family/sodium methylate operator on scene stated that the pt had [...] stated his pain was 7/10 w/ oxycodone. [facility] was consulted; pt and sodium methylate operator/family were informed of the causes and treatment of pancreatitis, and that IV pain mgmt was recommended. Pt and sodium methylate operator were offered IV fluids in the home, but declined, stating that they were going to the ED [facility]. Pt and family were educated and red flags were discussed. ................... ................... ................... ................... ................... ................... ................... ........ Disposition: Gracy Lee MD [address] [place] [address],[address], [place], [address], [email or web address] 12/18/2022 22:33:18 12/13/2023 text/html HPI: History of TBI, Auditory hallucinations, memory impairment, smoker, pancreatitis, alcohol use. Patient noted last night with discoloration of all toenail beds. Now only great toes dusky. No acute pain. BG this morning 265 per patient. ................... ................... ................... ................... ................... ................... ................... ........ [facility] Nurse Triage Notes (Isaura Lanza): Comments: CRC RN DID NOT NEED FURTHER INFO Alex Almeida MD [address] [facility],[address], [place], [address], [email or web address] [place] 12/13/2023 11:43:29
--- OUTSIDE RECORDS SUMMARY | 2025-04-26 03:09 | XMS_ITS | Encounter Summary ---
Author Organization [facility] Address [address] [facility] [address] [place] [address] Care Team Providers Care Emergency Management Consultant Name Role Phone Caprice Purdy MD Primary Care Provider Dede Castro PharmD Unavailable [phone] Dede Castro PharmD Unavailable [phone] Josué River MD Unavailable [phone] Reason for Visit * Reason Comments Med Refill Encounter Details Date Type Department Care Team (Late st Contact Info) Description 03/15/2023 Refill [facility] MEDICINE [address] [place], [place] [phone] Dede [place], PharmD [address] [place] [address] Hypertension, essential; Familial hypertriglyceridemia; Type 2 diabetes mellitus without complication, without long-term current use of insulin ([facility]); Dyslipidemia Social History Tobacco Use Types Packs/Day Years Used Date Smoking Tobacco: Never Smokeless Tobacco: Never Sex and Gender Information Value Date Recorded Sex Assigned at Male 08/10/2022 10:17 AM EDT Legal Sex Male 10:17 AM EDT Gender Identity Male 08/10/2022 10:17 AM EDT Sexual Orientation Straight 08/10/2022 10 :17 AM EDT documented as of this encounter Plan of Treatment Not on file documented as of this encounter Goals Goal Patient Goal Type Associated Problems Recent Progress Patient-Stated? Author Blood Pressure < 140/90 Blood Pressure 130/70( 025 10:03 AM EDT) No Dede Greenfield PharmD documented as of this encounter Visit Diagnoses Diagnosis Hypertension, essential Unspecified essential hypertension Familial hypertriglyceridemia Pure hyperglyceridemia Type 2 diabetes mellitus without complication, without long-term current use of insulin ([facility]) Dyslipidemia Other and unspecified hyperlipidemia documented in this encounter Additional Health Concerns Assessment Noted Time PHQ-9 Depression Total Score: 0 11/25/19 23 9:39 AM EST documented as of this encounter Care Teams Emergency Management Consultant Relationship Specialty Start Date End Date Caprice Purdy MD [address] [place] [phone] PCP - General Family Medicine 10/11/18 Dede [place], PharmD [address] [place] [phone] Pharmacist Internal Medicine 10/08/22 08/19/23 Dede Castro PharmD [address] [place] [phone] Pharmacist Internal Medicine 08/20/23 Josué River MD [address] [place] [address] [address] [place] [address] Endocrinology 10/24/24 documented as of this encounter
== END 2025-04-26 03:15 | disposition left against medical advice (07) ==
LOC: HO.ED 04-26 03:07
PROVIDERS: Physician Assistant Medical; Emergency Provider Emergency Medicine; PCP Family Medicine
DX: E11.649 Type 2 diabetes mellitus with hypoglycemia without coma (principal); R79.89 Other specified abnormal findings of blood chemistry; Z79.4 Long term (current) use of insulin; Z79.899 Other long term (current) drug therapy; F17.210 Nicotine dependence, cigarettes, uncomplicated
CPT/HCPCS: 36415; 80053; 82947; 83690; 83735; 85025; 99282; 99283

== ENCOUNTER 2025-04-30 08:09 | Outpatient (AMB) | payer OTHER, SELFPAY ==
--- OUTSIDE RECORDS SUMMARY | 2025-04-30 08:14 | XMS_ITS | Encounter Summary ---
Author Organization [employer] [facility] Address [address] [facility] [address] [place] [address] Care Team Providers Care Manager Of Procurement Name Role Phone Caprice Purdy MD Primary Care Provider Dede [place] PharmD Unavailable [phone] Dede Castro PharmD Unavailable [phone] Josué River MD Unavailable [phone] Reason for Visit * Reason Comments Med Refill Encounter Details Date Type Department Care Team (Late st Contact Info) Description 03/15/2023 Refill [facility] MEDICINE [address] [place], [place] [phone] Dede [place], PharmD [address] [place] [address] Hypertension, essential; Familial hypertriglyceridemia; Type 2 diabetes mellitus without complication, without long-term current use of insulin ([facility]); Dyslipidemia Social History Tobacco Use [...] use of insulin ([facility]) Dyslipidemia Other and unspecified hyperlipidemia documented in this encounter Additional Health Concerns Assessment Noted Time PHQ-9 Depression Total Score: 0 11/25/19 23 9:39 AM EST documented as of this encounter Care Teams Manager Of Procurement Relationship Specialty Start Date End Date Caprice Purdy MD [address] [place] [phone] PCP - General Family Medicine 10/11/18 Dede [place], PharmD [address] [place] [phone] Pharmacist Internal Medicine 10/08/22 08/19/23 Dede Castro PharmD [address] [place] [phone] Pharmacist Internal Medicine 08/20/23 Josué River MD [address] [place] [address] Drive [address] [place] [phone] Endocrinology 10/24/24 documented as of this encounter
--- OUTSIDE RECORDS SUMMARY | 2025-04-30 08:14 | XMS_ITS | Data Portability ---
Author Organization [employer] [facility], [facility] Address [address] [place] [address] Care Team Providers Care Team Cdl Driver Name Role Phone [facility] Referring Provider VELVET PAYNE Primary Care Provider [facility] OTHER Assessment Encounter Date Assessment Date [...] Available Not Available No t Available [employer] [place] Lite kit USE TO TEST BLOOD SUGAR [...] /min 97 % 97 % 162.56 cm 29866.6 g 97.6 [degF] 137/89 mm[Hg] Not Available [...] [id number] Jacklyn Lee MD Main - [facility] [address] [place] [address] [phone] 12/18/2022 17:53:32 12/21/2022 10:48:12 Acute pancreatitis [id number] K85.90 [id number] Alex Almeida MD Main - [facility] [address] [place] [phone] 12/13/2023 11:36:28 12/13/2023 18:56:25 Peripheral venous insufficiency [id number] I87.2 This 42-year-ol d male with new [...] [place] Member ID Guarantor Name 10/16/2024 1 [facility] - DOS PRIOR TO 2023 - DUAL ELIGIBLE (MEDICARE REPLACEMENT/ADV ANTAGE - HMO) Ruy Valencia [id number] Ruy Valencia 04/25/2025 1 [facility] - DOS ON OR AFTER 2023 - DUAL ELIGIBLE - [employer] OPT[employer] AND ONE CARE (MEDICARE REPLACEMENT/ADV ANTAGE - HMO) uRy Valencia [id number] Ruy Valencia Notes Date Note Type Note [...] ................... ................... ................... ................... ................... ................... ........ Cabinet Finisher Note From Richa Kim: Community Cabinet Finisher Ned Kim SC8 dispatched to a [facility] for a 41 yom C/O pancreatitis. Upon arrival, the pt was sitting on the couch, awake and alert, oriented to baseline w/ a TBI, in obvious pain. Family/manufacturing support engineer on scene stated that the pt had [...] stated his pain was 7/10 w/ oxycodone. [facility] was consulted; pt and manufacturing support engineer/family were informed of the causes and treatment of pancreatitis, and that IV pain mgmt was recommended. Pt and manufacturing support engineer were offered IV fluids in the home, but declined, stating that they were going to the ED [facility]. Pt and family were educated and red flags were discussed. ................... ................... ................... ................... ................... ................... ................... ........ Disposition: Gracy Lee MD [address] [place] [address],[address], [place], [address], [employer] 12/18/2022 22:33:18 12/13/2023 text/html HPI: History of TBI, Auditory hallucinations, memory impairment, smoker, pancreatitis, alcohol use. Patient noted last night with discoloration of all toenail beds. Now only great toes dusky. No acute pain. BG this morning 265 per patient. ................... ................... ................... ................... ................... ................... ................... ........ [facility] Nurse Triage Notes (Isaura Lanza): Comments: CRC RN DID NOT NEED FURTHER INFO Alex Almeida MD [address] [facility],[address], [place], [address], [employer] [place] 12/13/2023 11:43:29
[2025-04-30 08:18] VITALS: BP 116/58; PULSE 86; O2SAT 96; BMI 29.7
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
[2025-04-30 08:29] LABS: Glucose, Whole Blood 224 mg/dL (60-115)
== END 2025-04-30 09:11 | disposition home or self-care (01) ==
LOC: HO.ENCR 08:10
PROVIDERS: PCP Family Medicine; Visit Provider Student in an Organized Health Care Education/Training Program
DX: E11.65 Type 2 diabetes mellitus with hyperglycemia (principal); Z79.4 Long term (current) use of insulin; E78.1 Pure hyperglyceridemia
CPT/HCPCS: 99214

== ENCOUNTER → 2025-04-30 08:09 | Outpatient (BNVA) | payer OTHER, SELFPAY | PROVIDERS: PCP Family Medicine; Visit Provider Student in an Organized Health Care Education/Training Program | DX: E11.65 Type 2 diabetes mellitus with hyperglycemia (principal); Z79.4 Long term (current) use of insulin; E78.1 Pure hyperglyceridemia | CPT/HCPCS: 82947; 99212 ==

== ENCOUNTER 2025-06-06 09:07 | Outpatient (REF) | payer OTHER, SELFPAY ==
[2025-06-06 10:50] LABS: Hematocrit 43.5 % (42.0-52.0); Hemoglobin 15.2 g/dl (14.0-18.0); Mean Corpuscular HGB Conc 34.9 g/dl (31.0-36.0); Mean Corpuscular Hemoglobin 31.3 pg (27.0-33.0); Mean Corpuscular Volume 89.7 fL (80.0-98.0); NRBC Abs Auto 0.000 X10*3/uL (0.0-0.012); NRBC Pct Auto 0.0 /100WBC (0.0-0.2); Platelet Count 194 X10*3/uL (160-400); Red Blood Count 4.85 X10*6/uL (4.60-5.80); White Blood Count 6.2 X10*3/uL (4.8-10.8)
[2025-06-06 11:01] LABS: Hemoglobin A1C 247.1509 umol/L; Total Hemoglobin (HGBA1C) 3992.5690 umol/L
[2025-06-06 11:31] LABS: Alanine Aminotransferase 31 U/L (0-40); Albumin Level 4.8 g/dL (3.5-5.0); Alkaline Phosphatase 70 U/L (39-117); Anion Gap 11 (12-20); Aspartate Amino Transferase 22 U/L (5-37); Blood Urea Nitrogen 18 mg/dL (9-16); Calcium 9.6 mg/dL (8.4-10.2); Carbon Dioxide 26 mmol/L (22-29); Chloride 104 mmol/L (96-108); Cholesterol 183 mg/dL (<200); Estimated Glomerular Filt Rate > 60; HDL Cholesterol 35 mg/dL (>40); Potassium 4.2 mmol/L (3.3-5.1); Sodium 137 mmol/L (135-145); Total Protein 7.1 g/dL (6.5-8.0); Triglycerides 237 mg/dL (<150)
[2025-06-06 12:01] LABS: Microalbum/Creatinine Ratio Ur 13.5 ug/mg cr (<30)
== END 2025-06-06 09:08 | disposition home or self-care (01) ==
LOC: HO.LAB 09:07
PROVIDERS: PCP Family Medicine; Visit Provider Student in an Organized Health Care Education/Training Program
DX: I10 Essential (primary) hypertension (principal); E78.1 Pure hyperglyceridemia; E11.65 Type 2 diabetes mellitus with hyperglycemia; Z79.4 Long term (current) use of insulin
CPT/HCPCS: 36415; 80048; 80061; 80076; 82043; 82570; 83036; 85027

== ENCOUNTER 2025-06-15 09:19 | Outpatient (AMB) | payer OTHER, SELFPAY ==
[2025-06-15 09:33] VITALS: BP 126/90; PULSE 92; O2SAT 97; BMI 29.9
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
[2025-06-15 09:46] LABS: Glucose, Whole Blood 181 mg/dL (60-115)
--- OUTSIDE RECORDS SUMMARY | 2025-06-15 10:05 | XMS_ITS | Encounter Summary ---
Author Organization [facility] Address [address] [place] [address] Care Team Providers Care Vp Publisher Development Name Role Phone Caprice Purdy MD Primary Care Provider [phone] Dede Castro PharmD Unavailable [phone] Dede Castro PharmD Unavailable [phone] Josué River MD Unavailable [phone] Encounter Details Date Type Department Care Team (Late st Contact Info) Description 12/21/2022 Orders Only [facility] MEDICINE [address] [place] [id number] Caprice Purdy MD [address] [place] [address] Recurrent pancreatitis (Primary Dx) Social History Tobacco [...] Care Team (Late st Contact Info) Description 07/02/2025 10:30 AM EDT Medication Management [facility] MEDICINE [address] [place] [address] Dede Castro PharmD [address] [place] [address] documented as of this encounter Goals Goal Patient Goal Type Associated Problems Recent Progress Patient-Stated? Author Blood Pressure < 140/90 Blood Pressure 150/82( 025 10:38 AM EDT) No Dede Greenfield PharmD documented as of this encounter Visit Diagnoses Diagnosis Recurrent pancreatitis- Primary Chronic pancreatitis documented in this encounter Additional Health Concerns Assessment Noted Time PHQ-9 Depression Total Score: 0 11/25/19 23 9:39 AM EST documented as of this encounter Care Teams Vp Publisher Development Relationship Specialty Start Date End Date Caprice Purdy MD [address] [place] [address] PCP - General Family Medicine 10/11/18 Dede Castro PharmD [address] [place] [address] Pharmacist Internal Medicine 10/08/22 08/19/23 Dede Castro PharmD [address] [place] [address] Pharmacist Internal Medicine 08/20/23 Josué River MD [address] [place] [address] Drive [address] [place] [id number] Endocrinology 10/24/24 documented as of this encounter
--- OUTSIDE RECORDS SUMMARY | 2025-06-15 10:05 | XMS_ITS | Encounter Summary ---
Author Organization [facility] Address [address] [place] [address] [address] [place] [address] Care Team Providers Care Soaking Room Operator Name Role Phone Caprice Purdy MD Primary Care Provider + [phone] Dede Castro PharmD Unavailable [phone] Dede Castro PharmD Unavailable [phone] Josué River MD Unavailable [phone] Encounter Details Date Type Department Care Team (Late st Contact Info) Description 06/11/2023 Abstract [facility] MEDICINE [address] [place] [phone] Caprice Purdy MD [address] [place] [address] [phone] Social History Tobacco Use Types Packs/Day Years [...] Description 07/02/2025 10:30 AM EDT Medication Management [facility] MEDICINE [address] [place] [phone] Deed Castro PharmD [address] [place] [address] documented as of this encounter Goals Goal Patient Goal Type Associated Problems Recent Progress Patient-Stated? Author Blood Pressure < 140/90 Blood Pressure 150/82(2024 10:38 AM EDT) No Dede Greenfield, PharmD Hemoglobin A1c < 7 Result Component 7.8( 9:42 AM EDT) No Dede Greenfield, PharmD documented as of this encounter Visit Diagnoses Not on filedocumented in this encounter Additional Health Concerns Assessment Noted Time PHQ-9 Depression Total Score: 6 05/18/20 9:36 AM EDT documented as of this encounter Care Teams Soaking Room Operator Relationship Specialty Start Date End Date Caprice Purdy MD [address] [place] [address] PCP - General Family Medicine 10/11/18 Dede Castro PharmD [address] [place] [address] Pharmacist Internal Medicine 10/08/22 08/19/23 Dede Castro PharmD [address] [place] [id number] Pharmacist Internal Medicine 08/20/23 Josué River MD [address] [place] [address] Drive [address] [place] [id number] Endocrinology 10/24/24 documented as of this encounter
--- OUTSIDE RECORDS SUMMARY | 2025-06-15 10:05 | XMS_ITS | Encounter Summary ---
Author Organization [facility] Address [address] [facility] 7t [place] [address] Care Team Providers Care Gallery Or Museum Curator Name Role Phone Caprice Purdy MD Primary Care Provider +- [phone] Dede Castro PharmD Unavailable [phone] Dede Castro PharmD Unavailable [phone] Josué River MD Unavailable [phone] Encounter Details Date Type Department Care Team (Late st Contact Info) Description 05/18/2023 Abstract [facility] MEDICINE [address] [place] [address] Caprice Purdy MD [address] [place] [address] Social History Tobacco Use Types Packs/Day Years [...] AM EDT documented as of this encounter Functional Status * Over the past 2 weeks, how often have you been bothered by any of the following problems? Question Answer Date of Assessment Author Patient Health Questionnaire-2 Score 3 05/18/2023 9:36 AM EDT Corinne Tovar MD * If you checked off any problems on this questionnaire so far, Question Answer Date of Assessment Author How difficult have these problems made it for you to do your work, take care of things at home, or get along with other people? Somewhat difficult 05/18/2023 9:36 AM Tiny Aguero MD * Over the past 2 weeks, how often have you been bothered by any of the following problems? Question Answer Date of Assessment Author Little interest or pleasure in doing things More than half the days 05/18/2023 9:36 AM Alessandra Aguero MD Feeling down, depressed, or hopeless Several days 05/18/2023 9:36 AM Alessandra Aguero MD Trouble falling or staying asleep, or sleeping too much Nearly every day 05/18/2023 9:36 AM Alessandra Aguero MD Feeling tired or having little energy Not at all 05/18/2023 9:36 AM Alessandra Aguero MD Poor appetite or overeating Not at all 05/18/2023 9:36 AM Alessandra Aguero MD Feeling bad about yourself - or that you are a failure or have let yourself or your family down Not at all 05/18/2023 9:36 AM Alessandra Aguero MD Trouble concentrating on things, such as reading the newspaper or watching television Not at all 05/18/2023 9:36 AM Alessandra Aguero MD Moving or speaking so slowly that other people could have noticed? Or the opposite - being so fidgety or restless that you have been moving around a lot more than usual. Not at all 05/18/2023 9:36 AM Alessandra Aguero MD Thoughts that you would be better off or hurting yourself in some way Not at all 05/18/2023 9:36 AM Alessandra Aguero MD Patient Health Questionnaire-9 Score 6 05/18/2023 9:36 AM Alessandra Aguero MD documented as of this encounter Plan of Treatment Upcoming Encounters Date Type Department Care Team (Late st Contact Info) Description 07/02/2025 10:30 AM EDT Medication Management [facility] MED[facility]INE [address] [place] [address] Dede Castro PharmD [address] [place] [address] documented as of this encounter Goals Goal [...] documented as of this encounter Care Teams Gallery Or Museum Curator Relationship Specialty Start Date End Date Caprice Purdy MD [address] [place] [address] PCP - General Family Medicine 10/11/18 Dede Castro PharmD [address] [place] [address] Pharmacist Internal Medicine 10/08/22 08/19/23 Dede Castro PharmD [address] [place] [address] Pharmacist Internal Medicine 08/20/23 Josué River MD [address] [place] [address] Endocrinology 10/24/24 documented as of this encounter
--- OUTSIDE RECORDS SUMMARY | 2025-06-15 10:05 | XMS_ITS | Encounter Summary ---
Author Organization [facility] Address [address] [place] [address] [address] [place] [address] Care Team Providers Care Process Inspector Name Role Phone Caprice Purdy MD Primary Care Provider + [phone] Dede Castro PharmD Unavailable [phone] Dede Castro PharmD Unavailable [phone] Josué River MD Unavailable [phone] Reason for Visit * Reason Comments Med Refill Encounter Details Date Type Department Care Team (Late st Contact Info) Description 06/22/2023 Refill [facility] MEDICINE [address] [place] [address] [phone] Alessandra Tovar MD [address] [place], [place] [phone] Social History Tobacco Use Types Packs/Day Years [...] Description 07/02/2025 10:30 AM EDT Medication Management [facility] MEDICINE [address] [place] [address] Dede Castro PharmD [address] [place] [address] documented as of this encounter Goals Goal Patient Goal Type Associated Problems Recent Progress Patient-Stated? Author Blood Pressure < 140/90 Blood Pressure 150/82(2024 10:38 AM EDT) No Dede Greenfield, PharmD Hemoglobin A1c < 7 Result Component 7.8( 9:42 AM EDT) No Dede Greenfield PharmD documented as of this encounter Visit Diagnoses Not on filedocumented in this encounter Additional Health Concerns Assessment Noted Time PHQ-9 Depression Total Score: 6 05/18/20 9:36 AM EDT documented as of this encounter Care Teams Process Inspector Relationship Specialty Start Date End Date Caprice Purdy MD [address] [place] [address] PCP - General Family Medicine 10/11/18 Dede Castro, PharmD [address] [place] [address] Pharmacist Internal Medicine 10/08/22 08/19/23 Dede Castro, PharmD [address] [place] [address] Pharmacist Internal Medicine 08/20/23 Josué River MD [address] [place] [address] Endocrinology 10/24/24 documented as of this encounter
--- OUTSIDE RECORDS SUMMARY | 2025-06-15 10:05 | XMS_ITS | Encounter Summary ---
Author Organization [facility] Address [address] [facility] 7t [place] [address] Care Team Providers Care Cigarette Packing Machine Operator Name Role Phone Caprice Purdy MD Primary Care Provider Dede Castro PharmD Unavailable [phone] BryansGallito Dede PharmD Unavailable [phone] Josué River MD Unavailable [phone] Reason for Visit * Reason Comments Med Refill Encounter Details Date Type Department Care Team (Late st Contact Info) Description 10/07/2022 Refill [facility] [address] [place] [address] BryansDede Conti, PharmD 230 [place] [address] Hypertension, essential Social History Tobacco Use Types [...] Department Care Team (Late Contact Info) Description 07/02/2025 10:30 AM EDT Medication Management [facility] MEDICINE 230 [place] [address] Dede Castro, PharmD [address] [place] [address] documented as of this encounter Visit Diagnoses Diagnosis Hypertension, essential Unspecified essential hypertension documented in this encounter Care Teams Cigarette Packing Machine Operator Relationship Specialty Start Date End Date Caprice Purdy MD [address] [place] [address] PCP - General Family Medicine 10/11/18 Dede Castro PharmD [address] [place] [address] Pharmacist Internal Medicine 10/08/22 08/19/23 Dede Castro PharmD [address] [place] [address] Pharmacist Internal Medicine 08/20/23 Josué River MD [address] [place] [address] [address] [place] [address] Endocrinology 10/24/24 documented as of this encounter
--- OUTSIDE RECORDS SUMMARY | 2025-06-15 10:05 | XMS_ITS | Encounter Summary ---
Author Organization [employer] [facility] Address [address] [facility] 7t [place] [address] Care Team Providers Care Needle Maker Name Role Phone Caprice Purdy MD Primary Care Provider + [phone] Lupe Castrosa PharmD Unavailable [phone] BryansGallito Dede PharmD Unavailable [phone] Josué River MD Unavailable [phone] Encounter Details Date Type Department Care Team (Late Contact Info) Description 10/07/2022 Orders Only [facility] [address] [place], [place] [phone] Svetlana Serna LPN Social History Tobacco Use [...] Description 07/02/2025 10:30 AM EDT Medication Management [facility] [address] [place], [place] [phone] Bryans-Lupe Bledsoesa, PharmD 230 [place] [address] documented as of this encounter Visit Diagnoses Not on filedocumented in this encounter Care Teams Needle Maker Relationship Specialty Start Date End Date Caprice Purdy MD [address] [place] [address] PCP - General Family Medicine 10/11/18 Dede Castro, PharmD [address] [place] [address] Pharmacist Internal Medicine 10/08/22 08/19/23 Dede Castro, PharmD [address] [place] [address] Pharmacist Internal Medicine 08/20/23 Josué River MD [address] [place] [address] Drive [address] [place] [address] Endocrinology 10/24/24 documented as of this encounter
--- OUTSIDE RECORDS SUMMARY | 2025-06-15 10:05 | XMS_ITS | Encounter Summary ---
Author Organization [facility] Address [address] [place] [address] 7t [place] [address] Care Team Providers Care Porcelain Enamel Repairer Name Role Phone Caprice Purdy MD Primary Care Provider Dede Castro PharmD Unavailable [phone] Dede Castro PharmD Unavailable [phone] Josué River MD Unavailable [phone] Reason for Visit * Reason Comments Med Refill Encounter Details Date Type Department Care Team (Late st Contact Info) Description 03/15/2023 Refill [facility] MEDICINE [address] [place] [address] Dede Castro, PharmD [address] [place] [address] Hypertension, essential; Familial hypertriglyceridemia; Type 2 diabetes mellitus without complication, without long-term current use of insulin ([facility]); Dyslipidemia Social History Tobacco Use [...] Description 07/02/2025 10:30 AM EDT Medication Management [facility] [address] [place] [address] Dede Castro PharmD [address] [place] [address] documented as of this encounter Goals Goal Patient Goal Type Associated Problems Recent Progress Patient-Stated? Author Blood Pressure < 140/90 Blood Pressure 150/82( 025 10:38 AM EDT) No Dede Greenfield PharmD documented as of this encounter Visit Diagnoses Diagnosis Hypertension, essential Unspecified essential hypertension Familial hypertriglyceridemia Pure hyperglyceridemia Type 2 diabetes mellitus without complication, without long-term current use of insulin ([facility]) Dyslipidemia Other and unspecified hyperlipidemia documented in this encounter Additional Health Concerns Assessment Noted Time PHQ-9 Depression Total Score: 0 11/25/19 23 9:39 AM EST documented as of this encounter Care Teams Porcelain Enamel Repairer Relationship Specialty Start Date End Date Caprice Purdy MD [address] [place] [address] PCP - General Family Medicine 10/11/18 Dede Castro PharmD [address] [place] [address] Pharmacist Internal Medicine 10/08/22 08/19/23 Dede Castro PharmD [address] [place] [address] Pharmacist Internal Medicine 08/20/23 Josué River MD [address] [place] [address] Endocrinology 10/24/24 documented as of this encounter
--- OUTSIDE RECORDS SUMMARY | 2025-06-15 10:05 | XMS_ITS | Encounter Summary ---
Author Organization [facility] Address [address] [place] [address] [address] [address] Care Team Providers Care Washer Carcass Name Role Phone Caprice Purdy MD Primary Care Provider + [phone] Dede Castro PharmD Unavailable [phone] Dede Castro PharmD Unavailable [phone] Josué River MD Unavailable [phone] Reason for Visit * Reason Comments Med Refill Encounter Details Date Type Department Care Team (Late st Contact Info) Description 06/16/2023 Refill [facility] MEDICINE [address] [place] [address] [phone] Alessandra Tovar MD [address] [place], [place] [phone] Social History Tobacco Use Types Packs/Day Years [...] Description 07/02/2025 10:30 AM EDT Medication Management [facility] MEDICINE [address] [place] [address] Dede Castro PharmD [address] [place] [address] documented as of this encounter Goals Goal [...] documented as of this encounter Care Teams Washer Carcass Relationship Specialty Start Date End Date Caprice Purdy MD [address] [place] [address] PCP - General Family Medicine 10/11/18 Dede Castro, PharmD [address] [place] [address] Pharmacist Internal Medicine 10/08/22 08/19/23 Dede Castro, PharmD [address] [place] [address] Pharmacist Internal Medicine 08/20/23 Josué River MD [address] [place] [address] Endocrinology 10/24/24 documented as of this encounter
--- OUTSIDE RECORDS SUMMARY | 2025-06-15 10:05 | XMS_ITS | Encounter Summary ---
Author Organization [facility] Address [address] [facility] 7t [place] [address] Care Team Providers Care Lockstitch Binder Name Role Phone Caprice Purdy MD Primary Care Provider + [phone] Lupe Castrosa PharmD Unavailable [phone] BryansGallito Dede PharmD Unavailable [phone] Josué River MD Unavailable [phone] Encounter Details Date Type Department Care Team (Late Contact Info) Description 10/27/2022 Orders Only [facility] [address] [place], [place] [phone] Svetlana Serna LPN Social History Tobacco Use [...] Description 07/02/2025 10:30 AM EDT Medication Management [facility] [address] [place], [place] [phone] Bryans-Lupe Bledsoesa, PharmD [address] [place] [address] documented as of this encounter Visit Diagnoses Not on filedocumented in this encounter Care Teams Lockstitch Binder Relationship Specialty Start Date End Date Caprice Purdy MD [address] [place] [address] PCP - General Family Medicine 10/11/18 Dede Castro, PharmD [address] [place] [address] Pharmacist Internal Medicine 10/08/22 08/19/23 Dede Castro, PharmD [address] [place] [address] Pharmacist Internal Medicine 08/20/23 Josué River MD [address] [place] [address] [address] [place] [address] Endocrinology 10/24/24 documented as of this encounter
--- OUTSIDE RECORDS SUMMARY | 2025-06-15 10:05 | XMS_ITS | Clinical Summary ---
Author Organization [employer] Address [address] [facility] [address] [place] [address] Care Team Providers Care Bleach Supervisor Name Role Phone Caprice Purdy MD Primary Care Provider [phone]- [phone] Dede Castro PharmD Unavailable Josué River MD Unavailable [phone] Allergies No known active allergies Medications * This document contains information received from the source organization and may not represent a complete record from that organization. metFORMIN XR (Glucophage-XR) 500 MG 24 hr tabletIndications:Type 2 diabetes mellitus with hyperglycemia, with long-term current use of insulin (CMS/HCC) Take 500 mg by mouth 2 times daily. Do not crush, chew, or split. Active insulin pen needle (Sure Comfort Pen Mcdaniel) 31G x 5 mm miscIndications:Type 2 diabetes mellitus with hyperglycemia, with long-term current use of insulin (CMS/HCC) USE FOUR TIMES DAILY WITH INSULIN 100 each 11 2023 Active Icosapent Ethyl (Vascepa) 1 g capsuleIndications:Fam ilial hypertriglyceridemia TAKE 2 CAPSULES BY MOUTH TWICE DAILY IN THE MORNING AND EVENING WITH MEALS 120 capsule 11 2023 Active Blood Pressure kitIndications:Essenti al hypertension Check blood pressure three times a week or if you feel anormal 1 kit 2024 Active thiamine (Vitamin B-1) 100 MG tabletIndications:Alco hol abuse TAKE 1 TABLET BY MOUTH EVERY MORNING 90 tablet 3 2024 Active atorvastatin (Lipitor) 80 MG tabletIndications:Fami lial hypertriglyceridemia TAKE 1 TABLET BY MOUTH AT BEDTIME 90 tablet 3 2024 Active Alcohol Swabs (Alcohol Prep) 70 % pads USE DIRECTED TO TEST BLOOD SUGAR 2024 Active glucose 4 g chewable tablet CHEW 4 TABLETS EVERY 15 MINUTES NEEDED FOR HYPOGLYCEMIA DO NOT EXCEED 16 TABLETS IN 24 HOURS 2024 Active FreeStyle Precision Ren Test test strip TEST BLOOD SUGAR EVERY 8 HOURS DIRECTED 2024 Active insulin aspart FlexPen (NovoLOG) 100 UNIT/ML pen INJECT 20 UNITS SUBCUTANEOUSLY BEFORE BREAKFAST AND 18 UNITS BEFORE LUNCH 2024 Active FLUoxetine (PROzac) 20 MG capsuleIndications:Cur rent moderate episode of major depressive disorder without prior episode ([facility]) TAKE 1 CAPSULE BY MOUTH EVERY MORNING 90 capsule 2024 Active amLODIPine (Norvasc) 5 MG tabletIndications:Esse ntial hypertension TAKE 1 TABLET BY MOUTH EVERY MORNING 30 tablet 11 2024 Active folic acid (Folvite) 1 MG tabletIndications:Alco hol abuse TAKE 1 TABLET BY MOUTH EVERY MORNING 90 tablet 3 2024 Active gemfibrozil (Lopid) 600 MG tabletIndications:Fami lial hypertriglyceridemia TAKE 1 TABLET BY MOUTH TWICE DAILY IN THE MORNING AND IN THE EVENING (BEFORE BREAKFAST AND BEFORE SUPPER) 120 tablet 11 2024 Active TRUEplus Lancets 33G miscIndications:Type 2 diabetes mellitus with hyperglycemia, with long-term current use of insulin ([facility]) TEST BLOOD SUGAR TWICE DAILY 100 each 11 2024 Active lisinopril 30 MG tabletIndications:Esse ntial hypertension Take 1 tablet (30 mg) by mouth Once per day. 90 tablet 2024 Active Lantus SoloStar 100 UNIT/ML pen INJECT 42 UNITS SUBCUTANEOUSLY AT BEDTIME 2024 Active gemfibrozil (Lopid) 600 MG tabletIndications:Fami lial hypertriglyceridemia Take 1 tablet (600 mg) by mouth before breakfast and before evening meal. 120 tablet 11 05/24 Discontinued amLODIPine (Norvasc) 5 MG tabletIndications:Esse ntial hypertension Take 1 tablet (5 mg) by mouth Once per day. 30 tablet 05/21 Discontinued Lancets 28G miscIndications:Type 2 diabetes mellitus with hyperglycemia, with long-term current use of insulin ([facility]) TEST BLOOD SUGAR TWICE DAILY 100 each 11 05/24 Discontinued folic acid (Folvite) 1 MG tabletIndications:Alco hol abuse Take 1 tablet (1,000 mcg) by mouth in the morning. 90 tablet 3 05/23 Discontinued insulin glargine (Lantus) 100 UNIT/ML injectionIndications:T ype 2 diabetes mellitus with hyperglycemia, with long-term current use of insulin ([facility]) Inject under the skin at bedtime. [address] River 05/30 Discontinued( Med list cleanup (will not trigger notification to Pharmacy)) lisinopril 20 MG tabletIndications:Hype rtension, essential TAKE 1 TABLET BY MOUTH EVERY MORNING 90 tablet 1 05/30 Discontinued( Dose adjustment) Active Problems Patient Care Coordination No te Formatting of this note migh t be different from the original. Enrolled in [facility] clinic with Dede Castro, [facility], [facility]. Followed by Dr River endocrinology as of 08/18/23 [facility] [employer] Member: [employer] Agency: [employer] [facility] Problem Noted Date Diagnosed Date Severe [...] psychiatrist to be done by ASAEL-Florina Lopez -Today stable, controlled. Denies suicidial or [...] to outpt psychiatrist to be done by Gris Lopez -Today stable, controlled. Denies suicidial or [...] to outpt psychiatrist to be done by Gris Lopez Assessment & Plan (06/16/2023 11:16 AM EDT): PHQ9 today is 6,denies SI ,sister reports he also has episodes of irritability that started after TBI -pt on fluoxetine -will hold on changes x now -today evaluated pt and pt refused outpt psychotx but agreed to me for psychiatrist referral -referred to outpt psychiatrist to be done by Gris Lopez History of traumatic brain injury 05/27/2023 Overweight with body mass in dex (BMI) of 28 to 28.9 in adult 05/27/2023 Overview (03/01/2025): Discussed weight, diet, exercise with patient in relation to health conditions. Used motivational interviewing to illicit change talk and established initial goals with patient. Assessment & Plan (03/01/2025 9:33 AM EDT): Discussed weight, diet, exercise with patient in relation to health conditions. Used motivational interviewing to illicit change talk and established initial goals with patient. Pancreatitis 05/18/2023 Overview (01/22/2025): Hx multiple bouts of pancreatitis [id number], 12/2023, 04/11/24, 04/19/24, 10/16/24, 01/21/25 likely from EtOH in setting severe of hypertriglyceridemia. -CT 04/11/24 and 10/16/24 abdomen pelvis w IV conFindings consistent with acute pancreatitis. No evidence of pancreatic necrosis or drainable fluid collection. -followed by Dr. River warp tester -admissions 04/14/24 and 04/19/24. Acute pancreatitis due to hypertriglyceridemia. Initially admitted to the ICU for insulin drip and started on Lopid. Triglyceride levels decreasing from 2430 to 524. Lipase trended down. He reports that he was taking his fenofibrate daily as scheduled, will stop and replace with gemfibrozil during hospital stay. -admissions 04/14/24 Acute pancreatitis due to hypertriglyceridemia. -presented to [facility] ED 10/16/24, admitted till 10/18/24 for [...] imaging performed in 2023. Assessment & Plan (03/01/2025 9:33 AM EDT): Hx multiple bouts of pancreatitis [id number], 12/2023, 04/11/24, 04/19/24, 10/16/24, 01/21/25 likely from EtOH in setting severe of hypertriglyceridemia. -CT 04/11/24 and 10/16/24 abdomen pelvis w IV conFindings consistent with acute pancreatitis. No evidence of pancreatic necrosis or drainable fluid collection. -followed by Dr. River warp tester -admissions 04/14/24 and 04/19/24. Acute pancreatitis due to hypertriglyceridemia. Initially admitted to the ICU for insulin drip and started on Lopid. Triglyceride levels decreasing from 2430 to 524. Lipase trended down. He reports that he was taking his fenofibrate daily as scheduled, will stop and replace with gemfibrozil during hospital stay. -admissions 04/14/24 Acute pancreatitis due to hypertriglyceridemia. -presented to [facility] ED 10/16/24, admitted till 10/18/24 for [...] PM EST): Hx multiple bouts of pancreatitis [id number], 12/2023, 04/11/24, 04/19/24., 10/16/24 likely from EtOH in setting severe of hypertriglyceridemia. -CT 04/11/24 and 10/16/24 abdomen pelvis w IV conFindings consistent with acute pancreatitis. No evidence of pancreatic necrosis or drainable fluid collection. -followed by Dr. River warp tester -admissions 04/14/24 and 04/19/24. Acute pancreatitis due to hypertriglyceridemia. Initially admitted to the ICU for insulin drip and started on Lopid. Triglyceride levels decreasing from 2430 to 524. Lipase trended down. He reports that he was taking his fenofibrate daily as scheduled, will stop and replace with gemfibrozil during hospital stay. -admissions 04/14/24 Acute pancreatitis due to hypertriglyceridemia. -presented to [facility] ED 10/16/24, admitted till 10/18/24 for evaluation of upper abdominal pain, nausea and vomiting. BG found to be 406 mg/dl and triglycerides 1250 mg/dl. CT abdomen/pelvis showed acute pancreatitis. Admitted to ICU and started on aggressive IVF and insulin drip with down trending triglycerides to 480. Abdominal pain resolved. Assessment & Plan (05/17/2024 10:30 AM EDT): Hx multiple bouts of pancreatitis [id number], 12/2023, 04/11/24, 04/19/24 likely from EtOH in setting severe of hypertriglyceridemia. -CT 04/11/24 abdomen pelvis w IV conFindings consistent with acute pancreatitis. No evidence of pancreatic necrosis or drainable fluid collection. -followed by Dr. River warp tester -admissions 04/14/24 and 04/19/24. Acute pancreatitis due [...] hypertriglyceridemia. -he refuses [facility] referral Assessment & Plan (01/17/2024 11:20 AM EDT): Hx multiple bouts of pancreatitis most recents 08/2023 and 12/2023 likely from EtOH in setting severe of hypertriglyceridemia. -followed by Dr. River warp tester Assessment & Plan (08/25/2023 9:12 AM EST): Hx multiple bouts of pancreatitis most recent 08/2023 likely from EtOH in setting severe of hypertriglyceridemia. -followed by Dr. River warp tester Assessment & Plan (06/16/2023 12:42 PM EDT): [...] no phlegmon,no fluid collection noted per hospital summery. -discussed w pt about ETOH [...] -lost care -referred as STAT and requested field applications specialist to Try to get an early apt -In regards Small amount of thrombus in the distal splenic vein in the portal splenic confluence reported in CT scan is a known complications from pancreatitis -from dc summery pt was not started on AC and [...] due after 10/25/25 -eye care facilitated by [facility], last apt 11/15/23 -dental home [facility] -Health care proxy already filed, have a copy at home Assessment & Plan (10/25/2024 3:41 PM EST): -next physical exam due after 10/25/25 -eye care facilitated by [facility], last apt 11/15/23 -dental home is [facility] -Health care proxy already filed, have a copy at home Assessment & Plan (05/17/2024 9:33 AM EDT): -next physical exam due after 08/25/2024 -eye care facilitated by [facility], last apt 11/15/23 -dental home is [facility] -Health care proxy already filed, have a copy at home Assessment & Plan (01/17/2024 11:15 AM EDT): -next physical exam due after 08/25/2024 -[facility] 11[facility] -dental home is [facility] -Health care proxy already filed, have a copy at home Assessment & Plan (08/25/2023 9:41 AM EST): -next physical exam due after 08/25/2024 -eye care facilitated by [facility], last apt 07/15/2022 -dental home is [facility] [...] disorder and alcohol use disorder admitted to [facility] 02/24/2022-03/06/2022 for command auditory hallucinations. -follow [...] disorder and alcohol use disorder admitted to [facility] 02/24/2022-03/06/2022 for command auditory hallucinations. -follow [...] disorder and alcohol use disorder admitted to [facility] 02/24/2022-03/06/2022 for command auditory hallucinations. -follow [...] disorder and alcohol use disorder admitted to [facility] 02/24/2022-03/06/2022 for command auditory hallucinations. -follow up with Dr. Lisbeth sanon MD -continue fluoxetine 20mg po daily -He did not f/u with Dr. Bob and refuses psychiatric care. -Mom advised to call 911 if she fears for her safety and Pt understands this plan. Familial hypertriglyceridemia 11/17/2022 Overview (03/01/2025): Likely familial hyperuricacidemia, followed by warp tester, Dr. River Lab Results Component Value Date CHOLESTEROL 142 09/30/2020 LDLCHOL SEE COMMENT 09/30/2020 TRIG 1,084 (H) 02/12/2025 TRIG 2,678 (H) 01/21/2025 TRIG 1,250 (H) 10/16/2024 HDLCHOL 27 (L) 09/30/2020 CHOLHDLRAT 5.3 (H) [...] fenofibrate and fish oils and atorvastatin -admissions 01/2024, 04/14/24, 10/16/24, and 01/21/25 for acute pancreatitis due to hypertriglyceridemia. Gets admitted to the ICU for insulin drip and then Triglyceride levels decrease and pain resolves. Follows with [facility] Endocrinology. -last seen 02/09/25 no med changes. Assessment & Plan (03/01/2025 9:32 AM EDT): Likely familial hyperuricacidemia, followed by warp tester, Dr. River Lab Results Component Value Date CHOLESTEROL 142 09/30/2020 LDLCHOL SEE COMMENT 09/30/2020 TRIG 1,084 (H) 02/12/2025 TRIG 2,678 (H) 01/21/2025 TRIG 1,250 (H) 10/16/2024 HDLCHOL 27 (L) 09/30/2020 CHOLHDLRAT 5.3 (H) [...] fenofibrate and fish oils and atorvastatin -admissions 01/2024, 04/14/24, 10/16/24, and 01/21/25 for acute pancreatitis due to hypertriglyceridemia. Gets admitted to the ICU for insulin drip and then Triglyceride levels decrease and pain resolves. Follows with [facility] Endocrinology. -last seen 02/09/25 no med changes. Assessment & Plan (10/25/2024 3:41 PM EST): Likely familial hyperuricacidemia, followed by warp tester, Dr. River Lab Results Component Value Date [...] with gemfibrozil. -Has appt. with Dr. River, warp tester 05/2024 Assessment & Plan (05/17/2024 10:25 AM EDT): Likely familial hyperuricacidemia, followed by warp testerDr. River Lab Results Component Value Date CHOLESTEROL [...] with gemfibrozil. -Has appt. with Dr. River, warp tester 05/2024 Assessment & Plan (01/17/2024 11:18 AM EDT): Likely familial hyperuricacidemia, followed by Dr. River warp tester Lab Results Component Value Date CHOLESTEROL 142 [...] Likely familial hyperuricacidemia, followed by Dr. River warp tester Lab Results Component Value Date CHOLESTEROL 142 [...] 3:09 PM EDT): From chart review from [facility] ' notes pt used to f w warp tester Dr. Calabrese,Labs on 11/05/2020 show an LDL [...] and vitamin D Alcohol abuse 11/17/2022 Overview (03/01/2025): Was drinking 8-9 beers per night before hospitalization, cut down with sister involved. Pt reports no alcohol the past couple months 10/25/24 Continues to report no alcohol since discharge 01/23/25 -once again emphasized today the importance to keep avoiding ETOH -continue thiamine and folate Assessment & Plan (03/01/2025 9:34 AM EDT): Was drinking 8-9 beers per night before hospitalization, cut down with sister involved. Pt reports no alcohol the past couple months 10/25/24 Continues to report no alcohol since discharge 01/23/25 -once again emphasized today the importance to [...] clinic. Pt refuses. Tobacco dependence 11/17/2022 Overview (03/01/2025): Pt reports smoking since several years ago then stopped in 2018 and again smoking again 7 to 8 [...] Will discuss at 50 years of age -declines cessation 03/01/25 Assessment & Plan (03/01/2025 9:41 AM EDT): Pt reports smoking since several years ago then stopped in 2018 and again smoking again 7 to 8 [...] Will discuss at 50 years of age -declines cessation 03/01/25 Assessment & Plan (10/25/2024 3:43 PM EST): [...] long-term current use of insulin 12/09/2021 Overview (05/02/2025): Diabetes is not controlled. Followed by [facility] endocrine, Dr. River since 08/19/2023. Doing much better with warp tester and sister involved. Education for insulin pump done 03/15/24. Note from 05/02/25 reviewed Lab Results Component Value Date HGBA1C 8.6 (A) 03/01/2025 HGBA1C 9.1 (A) 10/25/2024 HGBA1C 7.0 (A) 07/20/2024 Lab Results Component Value Date CREATININE 1.25 04/25/2025 EGFR >60 04/25/2025 MICROALBCREU 13.0 03/09/2025 MICROALBCREU 39.2 (H) 12/29/2024 LDLCHOLCAL TNP 02/12/2025 -German/Arb: lisinopril 20mg daily -Statin therapy: atorvastatin 80mg daily -Diabetic eye exam: 07/15/[address] Callahan -Diabetic foot exam: done 10/25/24 -Continue lifestyle modifications -Continue current medications: -metformin 500mg ER BID -Lantus 40 unidades ayad per endo note 02/06/24 -note from [facility], Dr. Josué River 03/15/24 reviewed. Being evaluated [...] before supper 30 days 21 mL 11RF Saw Endo 02/09/25, insulin aspart U-100 (Novolog FlexPen U-100 Insulin aspart) 22 units before breakfast, and 20 units before supper and lunch. Continue Lantus 42 Units. Assessment & Plan (03/01/2025 10:31 AM EDT): Diabetes is not controlled. Followed by [facility] endocrine, Dr. River since 08/19/2023. Doing much better with warp tester and sister involved. Education for insulin pump done 03/15/24. Note from 02/09/25 reveiwed Lab Results Component Value Date HGBA1C 8.6 (A) 03/01/2025 HGBA1C 9.1 (A) 10/25/2024 HGBA1C 7.0 (A) 07/20/2024 Lab Results Component Value Date CREATININE 0.90 01/21/2025 EGFR >60 01/21/2025 MICROALBCREU 39.2 (H) 12/29/2024 MICROALBCREU 32.8 (H) 05/31/2023 LDLCHOLCAL TNP 02/12/2025 -German/Arb: lisinopril 20mg daily -Statin therapy: atorvastatin 80mg daily -Diabetic eye exam: 07/15/[address] Callahan -Diabetic foot exam: done 10/25/24 -Continue lifestyle modifications -Continue current medications: -metformin 500mg ER BID -Lantus 40 unidades ayad per endo note 02/06/24 -note from [facility], Dr. Josué River 03/15/24 reviewed. Being evaluated [...] before supper 30 days 21 mL 11RF Saw Endo 02/09/25, insulin aspart U-100 (Novolog FlexPen U-100 Insulin aspart) 22 units before breakfast, and 20 units before supper and lunch. Continue Lantus 42 Units. Assessment & Plan (10/25/2024 3:40 PM EST): Diabetes is not controlled. Followed by [facility] endocrine, Dr. River since 08/19/2023. Doing much better with warp tester and sister involved. Education for insulin pump [...] before breakfast to avoid hypoglycemia 02/23/24 via warp tester, Dr River -Lantus 40 unidades ayad per endo note 02/06/24 -note from [facility], Dr. Josué River 03/15/24 reviewed. Being evaluated for insulin pump. -admissions 04/14/24 Acute pancreatitis due to hypertriglyceridemia. Initially admitted to the ICU for insulin drip and started on Lopid. -has appt. to get insulin pump placed 11/09/24 Assessment & Plan (05/17/2024 10:27 AM EDT): DDiabetes is not controlled. Followed by [facility] endocrine, Dr. River since 08/19/2023. Doing much better with warp tester and sister involved. Education for insulin pump [...] before breakfast to avoid hypoglycemia 02/23/24 via warp tester, Dr River -Lantus 40 unidades ayad per endo note 02/06/24 -note from [facility], Dr. Josué River 03/15/24 reviewed. Being evaluated for insulin pump. -admissions 04/14/24 Acute pancreatitis due to hypertriglyceridemia. Initially admitted to the ICU for insulin drip and started on Lopid. Assessment & Plan (01/17/2024 11:19 AM EDT): Diabetes is not controlled. Followed by [facility] endo since 08/19/2023. Doing much better [...] is not controlled.Seen as new pt at [facility] endo 08/19/2023, note requested. Doing much [...] up 3 months Essential hypertension 12/09/2021 Overview (03/01/2025): -Dx based on 2 BP > 140/90. -Today, BP slightly elevated, will continue to monitor at home and follow-up with CDTM -continue lisinopril 20mg daily -continue amlodipine 5mg daily -referred to Collaborative Drug Therapy Managment Program with our TysonD, [facility] 03/01/25 Assessment & Plan (03/01/2025 9:32 AM EDT): -Dx based on 2 BP > 140/90. -Today, BP slightly elevated, will continue to monitor at home and follow-up with CD[facility] -continue lisinopril 20mg daily -continue amlodipine 5mg daily -referred to Collaborative Drug Therapy Managment Program with our TysonDUSHA 03/01/25 Assessment & Plan (10/25/2024 3:31 PM EST): [...] & Plan (05/19/2023 9:19 AM EDT): Assessment: Patient with depressive symptoms of anhedonia, depressed mood, weight loss, isolation, anxiety, mood swings and sleep disturbance in the context of romantic relationship loss about 6 months ago. Patient also presents with alcohol abuse which began about (2) years ago with no trigger. 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 PCP requested external referral for psychiatry as patient agreed to that service; provider will complete. At this time Ruy Erik meets criteria for Visit Diagnoses: Problem List Items Addressed This Visit Nervous Developmental delay Other Current moderate episode of major depressive disorder without prior episode (CMS/HCC) Alcohol abuse Patient ready to address current needs No Strengths include support from sister PLAN: 1. Follow up with [facility]: Not recommended for follow-up 2. Patient goal is to stop drinking alcohol 3. Behavioral Recommendations a. Patient may request to be connected to [facility] [[email or web address]] at any time b. Patient may reach out to [facility], if needed c. Patient will follow-up with medical care d. Once established, patient will engage in psychopharmacology service. Assessment & Plan (05/18/2023 2:57 PM EDT): PHQ9 today is 6,denies SI ,sister reports he also has episodes of irritability that started after TBI -pt on fluoxetine -will hold on changes x now -today evaluated pt and pt refused outpt psychotx but agreed to me for psychiatrist referral -referred to outpt psychiatrist to be done by -Florian Lopez Resolved Problems Problem Noted Date Diagnosed Date Resolved Date Hypertriglyceridemia 05/27/2023 023 Leukocytosis 05/27/2023 06/16/2023 Encounters Date Type Department Care Team Description 06/15/2025 Orders Only GENERIC EXTERNAL DATA DEPARTMENT Provider, Generic External Data 06/06/2025 Orders Only GENERIC EXTERNAL DATA DEPARTMENT Provider, Generic External Data 05/30/2025 Travel 05/24/2025 Refill [facility] [address] [place] [id number] Caprice Purdy MD Familial hypertriglyceridemia; Type 2 diabetes mellitus with hyperglycemia, with long-term current use of insulin ([facility]) 05/23/2025 Refill [facility] [address] [place] [address] Caprice Purdy MD Alcohol abuse 05/22/2025 Telephone [facility] [address] [place] [phone] Caprice Purdy MD Appointment Request 05/20/2025 Refill [facility] [address] [place] [address] Caprice Purdy MD Essential hypertension 04/30/2025 Orders Only GENERIC EXTERNAL DATA DEPARTMENT Provider, Generic External Data 04/27/2025 Refill [facility] [address] [place] [address] Caprice Purdy MD Current moderate episode of major depressive disorder without prior episode ([facility]) 04/25/2025 Orders Only GENERIC EXTERNAL DATA DEPARTMENT Provider, Generic External Data 04/25/2025 Telephone [facility] [address] [place] [address] Caprice Purdy MD 04/18/2025 Telephone [facility] [address] [place] [address] [phone] Caprice Purdy MD Medication Question from Last 3 Months Immunizations Immunization Administration Dates Next Due Hep A, Adult [...] Sign Reading Time Taken Comments Blood Pressure 150/82 05/30/2025 10:38 AM EDT Pulse 78 05/30/2025 10:33 AM EDT Temperature 37.2 C (98.9 F) 03/01/2025 9:16 AM EDT Respiratory Rate 20 03/01/2025 9:16 AM EDT Oxygen Saturation 98% 03/01/2025 9:16 AM EDT Inhaled Oxygen Concentration - - Weight 77.5 kg (170 lb 12.8 oz) 03/01/2025 9:16 AM EDT Height 163.8 cm (5' 4.5 ) 03/01/2025 9:16 AM EDT Body Mass Index 28.86 03/01/2025 9:16 AM EDT Plan of Treatment Upcoming Encounters Date Type Department Care Team (Late st Contact Info) Description 07/02/2025 10:30 AM EDT Medication Management [facility] [address] [place], [place] [phone] Dede Castro, PharmD [address] [place], [place] [phone] Health Maintenance Due Date Last Done Comments Dental Oral Exam 1980 Dental Prophylaxis 1980 Dental X-Ray: Bitewings 1980 HPV Vaccines (1 - Male 3-dose series) 12/24/1995 Influenza Vaccine (#1) 2025 , 10/25/2024, 08/18/2023, Additional history exists Diabetes: Hemoglobin A1C 09/06/2025 025, 03/01/2025, 10/25/2024, Additional history exists Depression Screening 10/25/2025 10/25/2024, 10/25/19 Diabetes: Foot Exam 10/25/2025 10/25/2024, 10/25/2024, 10/25/2024, Additional history exists Family Planning (PISQ) 10/25/2025 10/25/2024 Eye Exam 11/15/2025 11/15/2023, 07/15/2022 Lipid Panel 02/12/2026 02/12/2025, 04/11, 05/31/2023, Additional history exists Alcohol/Substance Use Screening 03/01/2026 03/01/2025 Disability Screening 03/01/2026 03/01/2025 SDOH Screening 03/01/2026 03/01/2025 Tobacco Screening 03/01/2026 03/01/2025 Diabetes: Urine Protein Screening 06/06/2026 06/06/2025, 03/09/2025, 12/29/2024, Additional history exists Dental X-Ray: Full Mouth [...] Years) and At-Risk Patients (6 to 49) Years Completed 11/25/2022 COVID-19 Vaccine Completed 10/25/2024, , 12/25/2020 HIB Vaccines Aged Out No longer eligi ble based on patient's age to complete this topic IPV Vaccines Aged Out No longer eligi ble based on patient's age to complete this topic Meningococcal B Vaccine Aged Out No l onger eligible based on patient's age to complete [...] Pressure 150/82(2024 10:38 AM EDT) No Dede Greenfield PharmD Hemoglobin A1c < 7 Result Component 7.8( 9:42 AM EDT) No Dede Greenfield PharmD Procedures Procedure Name Priority Date/Time Associated Diagnosis Comments GLUCOSE, WHOLE BLOOD Routine 06/15/2025 9:41 AM EDT HEMOGLOBIN A1C Routine 06/06/2025 9:42 AM EDT CBC Routine 06/06/2025 9:42 AM EDT ALBUMIN, RANDOM URINE W/CREATININE Routine 06/06/2025 9:35 AM EDT GLUCOSE, WHOLE BLOOD Routine 04/30/2025 8:26 AM EDT GLUCOSE, WHOLE BLOOD Routine 04/25/2025 8:02 PM EDT CBC WITH AUTO DIFFERENTIAL Routine 04/25/2025 7:50 PM EDT LIPASE Routine 04/25/2025 7:50 PM EDT MAGNESIUM Routine 04/25/2025 7:50 PM EDT COMPREHENSIVE METABOLIC PANEL Routine 04/25/2025 7:50 PM EDT LIPID PANEL, STANDARD Routine 02/12/2025 9:30 AM EDT PANORAMIC RADIOGRAPHIC IMAGE Routine 06/29/2024 1:00 PM EDT HM DIABETES EYE EXAM Routine 11/15/2023 HEPATITIS C ANTIBODY (EXTERNAL RESULTS ONLY) Routine 01/03/2019 7:31 PM EDT HIV 1/2 ANTIGEN AND ANTIBODY (EXTERNAL RESULTS ONLY) Routine 01/03/2019 7:30 PM EDT from Last 3 Months or Most Recently Relevant to Health Maintenance Results * (ABNORMAL) Glucose, Whole Blood (06/15/2025 9:41 AM EDT) Only the most recent of2 resultswithin the time period is included. Pathologist [facility] Glucose, Whole Blood 181(H) 60 - 115 mg/dL [facility] Comment:METER #: [id number] Testing performed in the Endocrinology Department [address] , [address], [facility]. 06/15/2025 9:41 AM EDT 06/15/2025 9:46 AM EDT us Generic External Data Provider LAB BLOOD ORDERAB LES Final Result [facility] [address] [place] [phone] * (ABNORMAL) CBC (06/06/2025 9:42 AM EDT) Pathologist [facility] White Blood Count 6.2 4.8 - 10.8 X10*3/uL [facility] Red Blood Count 4.85 4.60 - 5.80 X10*6/uL [facility] Hemoglobin 15.2 14.0 - 18.0 g/dl [facility] Hematocrit 43.5 42.0 - 52.0 % [facility] Mean Corpuscular Volume 89.7 80.0 - 98.0 fL [facility] Mean Corpuscular Hemoglobin 31.3 27.0 - 33.0 pg [facility] Mean Corpuscular HGB Conc 34.9 31.0 - 36.0 g/dl [facility] Red Cell Distribution Width 12.1 11.0 - 16.0 % [facility] Platelet Count 194 160 - 400 X10*3/uL [facility] Mean Platelet Volume 9.3(L) 9.4 - 12.4 fL [facility] NRBC Pct Auto 0.0 0.0 - 0.2 /100WBC [facility] NRBC Abs Auto 0.000 0.0 - 0.012 X10*3/uL [facility] 06/06/2025 9:42 AM EDT 06/06/2025 9:42 AM EDT us Generic External Data Provider LAB BLOOD ORDERAB LES Final Result [facility] [address] [place] [phone] * (ABNORMAL) Hemoglobin A1c (06/06/2025 9:42 AM EDT) Hemoglobin A1c 7.8(H) <6.0 % [facility] Comment:Hemoglobin A1C Refer ence Range Adults: 4.8 - 6.0 % Non diabetic: < 6.0 % Goal: < 7.0 %Additional Action Suggested: > 8.0 %Note: Hemoglobin A1c results are invalid for patients with abnormal amounts of HbF. Blood transfusions may impact the HbA1c concentration in the patient sample. Estimated Average Glucose 177 mg/dL [facility] Comment:eAG = Estimated ave rage glucose which is %A1C expressed asaverage glucose, using the formula of the [id number]-[id number] Glucose study (ADAG), Diabetes Care, Vol.31,#8,May. 2007 06/06/2025 9:42 AM EDT 06/06/2025 9:42 AM EDT us Generic External Data Provider LAB BLOOD ORDERAB LES Final Result Performing Organization Address [facility] Co de Phone Number [facility] [address] [place] [phone] * Albumin, Random Urine W/Creatinine (06/06/2025 9:35 AM EDT) Creatinine, Urine 347.73 mg/dL [facility] Microalbumin Urine 47.0 mg/L [facility] Microalbum Creatinine Ratio Ur 13.5 <30 ug/mg cr [facility] Comment:Albumin/Creatinine R atio Reference Ranges: Normal: < 30 ug/mg creatinine Microalbuminuria: 30 - 300 ug/mg creatinineClinical Albuminuria: > 300 ug/mg creatinine 06/06/2025 9:35 AM EDT 06/06/2025 10:33 AM EDT us Generic External Data Provider LAB URINE ORDERAB LES Final Result Performing Organization Address [facility] Phone Number [facility] [address] [place] [phone] * (ABNORMAL) Glucose, Whole Blood (04/25/2025 8:02 PM EDT) Glucose, Whole Blood 126(H) 60 - 115 mg/dL [facility] Comment:METER #: [id number] 04/25/2025 8:02 PM EDT 04/25/2025 8:07 PM EDT us Generic External Data Provider LAB BLOOD ORDERAB LES Final Result Performing Organization Address [facility] Co de Phone Number [facility] [address] [place] [phone] * (ABNORMAL) CBC auto differential (04/25/2025 7:50 PM EDT) White Blood Count 7.1 4.8 - 10.8 X10*3/uL [facility] Red Blood Count 4.18(L) 4.60 - 5.80 X10*6/uL [facility] Hemoglobin 13.5(L) 14.0 - 18.0 g/dl [facility] Hematocrit 36.0(L) 42.0 - 52.0 % [facility] Mean Corpuscular Volume 86.1 80.0 - 98.0 fL [facility] Mean Corpuscular Hemoglobin 32.3 27.0 - 33.0 pg [facility] Mean Corpuscular HGB Conc 37.5(H) 31.0 - 36.0 g/dl [facility] Red Cell Distribution Width 11.9 11.0 - 16.0 % [facility] Platelet Count 192 160 - 400 X10*3/uL [facility] Mean Platelet Volume 8.9(L) 9.4 - 12.4 fL [facility] Neutrophils Percent Auto 67.6 45 - 73 % [facility] Imm Gran Pct Auto 0.6(H) 0.0 - 0.4 % [facility] Lymphocytes Percent Auto 21.5 20 - 40 % [facility] Monocytes Percent Auto 8.6 2 - 11 % [facility] Eosinophils Percent Auto 1.3 0 - 4 % [facility] Basophils Percent Auto 0.4 0 - 2 % [facility] NRBC Pct Auto 0.6(H) 0.0 - 0.2 /100WBC [facility] Neutrophils Absolute Auto 4.8 2.0 - 8.3 x10*3/uL [facility] Imm Gran Abs Auto 0.04(H) 0.00 - 0.03 X10*3/uL [facility] Lymphocytes Absolute Auto 1.5 1.2 - 4.9 X10*3/uL [facility] Monocytes Absolute Auto 0.6 0.1 - 1.2 X10*3/uL [facility] Eosinophils Absolute Auto 0.1 0.0 - 0.4 X10*3/uL [facility] Basophils Absolute Auto 0.0 0.0 - 0.2 X10*3/uL [facility] NRBC Abs Auto 0.040(H) 0.0 - 0.012 X10*3/uL [facility] 04/25/2025 7:50 PM EDT 04/25/2025 7:56 PM EDT Generic External Data Provider LAB BLOOD ORDERAB LES Final Result Performing Organization Address City/[facility]/ZIP Co de Phone Number [facility] [address] [place] [phone] * Magnesium (04/25/2025 7:50 PM EDT) Magnesium 2.0 1.6 - 2.6 mg/dL [facility] Comment:Marked Lipemia. Inte rpret result with caution. 04/25/2025 7:50 PM EDT 04/25/2025 7:56 PM EDT Generic External Data Provider LAB BLOOD ORDERAB LES Final Result Performing Organization Address [facility] Co de Phone Number [facility] [address] [place] [address] [phone] * Lipase (04/25/2025 7:50 PM EDT) Lipase 19 8 - 78 U/L [facility] Comment:Marked Lipemia. Inte rpret result with caution. 04/25/2025 7:50 PM EDT 04/25/2025 7:56 PM EDT Generic External Data Provider LAB BLOOD ORDERAB LES Final Result Performing Organization Address [facility] Co de Phone Number [facility] [address] [place] [address] [phone] * (ABNORMAL) Comprehensive Metabolic Panel (04/25/2025 7:50 PM EDT) Sodium 140 135 - 145 mmol/L [facility] Comment:Marked Lipemia. Inte rpret result with caution. Potassium 3.6 3.3 - 5.1 mmol/L [facility] Comment:Slight Hemolysis.Int erpret result with caution.Marked Lipemia. Interpret result with caution. Chloride 109(H) 96 - 108 mmol/L [facility] Comment:Marked Lipemia. Inte rpret result with caution. Carbon Dioxide 20(L) 22 - 29 mmol/L [facility] Comment:Marked Lipemia. Inte rpret result with caution. Anion Gap 15 12 - 20 [facility] Urea Nitrogen (BUN) 24(H) 9 - 16 mg/dL [facility] Comment:Marked Lipemia. Inte rpret result with caution. Creatinine, Serum 1.25 0.5 - 1.4 mg/dL [facility] Comment:Marked Lipemia. Inte rpret result with caution. Creatinine Clr Calc Pharmacy 71.2 [facility] Comment:eGFR (calculated fro m the MDRD study equation) and eCrCl(calculated from the Cockcroft-Gault equation) are based ondifferent parameters and may not yield comparable results.If eCrCl result is absurd, please check patient'sheight/weight. Estimated Glomerular Filt Rate >60 [facility] Comment:Chronic Kidney Disea se: Estimated GFR < 60 mL/min/[id number] Kidney Disease: Estimated GFR < 15 mL/min/1.73m2 Glucose 103 60 - 115 mg/dL [facility] Comment:Marked Lipemia. Inte rpret result with caution. Calcium 9.5 8.4 - 10.2 mg/dL [facility] Comment:Marked Lipemia. Inte rpret result with caution. Bilirubin, Total 0.2 0.0 - 1.0 mg/dL [facility] Comment:Marked Lipemia. Inte rpret result with caution. Aspartate Amino Transferase 24 5 - 37 U/L [facility] Comment:Slight Hemolysis.Int erpret result with caution.Marked Lipemia. Interpret result with caution. Alanine Aminotransferase 34 0 - 40 U/L [facility] Comment:[id number]-Unable to calcu late result. Rate reaction linearityfailure.Marked Lipemia. Interpret result with caution. Total Protein 8.4(H) 6.5 - 8.0 g/dL [facility] Comment:Marked Lipemia. Inte rpret result with caution. Albumin Level 4.5 3.5 - 5.0 g/dL [facility] Comment:Marked Lipemia. Inte rpret result with caution. Alkaline Phosphatase 96 39 - 117 U/L [facility] Comment:Marked Lipemia. Inte rpret result with caution. 04/25/2025 7:50 PM EDT 04/25/2025 7:56 PM EDT us Generic External Data Provider LAB BLOOD ORDERAB LES Final Result [facility] [address] [place] [phone] * (ABNORMAL) Lipid Panel, Standard (02/12/2025 9:30 AM EDT) Triglycerides 1,084(H) <150 mg/dL [facility] Comment:Desirable Triglyceri de: less than 150 mg/dLBorderline High Triglyceride 150-199 mg/dLHigh Triglyceride: 200-499 mg/dLVery High Triglyceride: greater than or equal to 5OO mg/dL Cholesterol 237(H) <200 mg/dL [facility] Comment:Desirable Cholestero l: less than 200 mg/dLBorderline High Cholesterol: 200-239 mg/dLHigh Cholesterol: greater than 239 mg/dL LDL Cholesterol Calculated TNP <100 mg/dL [facility] Comment:Unable to calculate the LDL. The formula of Friedwald,Rosas, and Tano is only valid if the triglycerides areless than 400 mg/dl. HDL Cholesterol 32(L) >40 mg/dL [facility] Comment:Desirable HDL: great er than 40 mg/dL Note: This HDL assay may give artificially low results in patients with liver disease. 02/12/2025 9:30 AM EDT 02/12/2025 9:30 AM EDT us Generic External Data Provider LAB BLOOD ORDERAB LES Final Result [facility] [address] [place] [phone] * Diabetes Eye Exam (11/15/2023) Eye [...] Most Recently Relevant to Health Maintenance Insurance [facility] < 65 [place] [id number] * Guarantor: Ruy Valencia Account Type Relation to Patient Date of Phone Billing Address Personal/Family Self [address] Care Teams Bleach Supervisor Relationship Specialty Start Date End Date Gurwinder, MD Caprice [address] [place] [address] PCP - General Family Medicine 10/11/18 Dede Castro, PharmD [address] [place], [place] Pharmacist Internal Medicine 08/20/23 Josué River MD [address] [place], [place] Endocrinology 10/24/24
--- OUTSIDE RECORDS SUMMARY | 2025-06-15 10:05 | XMS_ITS | Encounter Summary ---
Author Organization [employer] Address [address] [facility] [address]t [place] [address] Care Team Providers Care Slide Fasteners Inspector Name Role Phone Caprice Purdy MD Primary Care Provider +- [phone] Dede Castro PharmD Unavailable Josué River MD Unavailable [phone] Reason for Visit * Reason Onset Date Comments Med Refill 07/25/2024 Encounter Details Date Type Department Care Team (Late st Contact Info) Description 07/25/2024 Telephone [facility] [address] [place], [place] [phone] Caprice Purdy MD [address] [place], [place] [phone] Med Refill Social History Tobacco Use Types [...] (NOVOLOG FLEXPEN SC) To be sent to: [facility] - [place], [place] - [address] [facility] documented in this encounter Plan of Treatment Upcoming Encounters Date Type Department Care Team (Late st Contact Info) Description 07/02/2025 10:30 AM EDT Medication Management [facility] [address] [place] [address] Dede Castro, PharmD [address] [place] [address] documented as of this encounter Goals Goal [...] documented as of this encounter Care Teams Slide Fasteners Inspector Relationship Specialty Start Date End Date Caprice Purdy MD [address] [place] [address] PCP - General Family Medicine 10/11/18 Dede Castro PharmD [address] [place] [phone] Pharmacist Internal Medicine 08/20/23 Josué River MD [address] [place] [address] Drive [address] [place] [address] Endocrinology 10/24/24 documented as of this encounter
--- OUTSIDE RECORDS SUMMARY | 2025-06-15 10:05 | XMS_ITS | Encounter Summary ---
Author Organization [employer] Address [address] [facility] 7t [place] [address] Care Team Providers Care Occupational Health Nurse Name Role Phone Caprice Purdy MD Primary Care Provider +- [phone] Dede Castro PharmD Unavailable [phone] Josué River MD Unavailable [phone] Encounter Details Date Type Department Care Team (Late st Contact Info) Description 06/15/2025 Orders Only GENERIC EXTERNAL DATA [...] Description 07/02/2025 10:30 AM EDT Medication Management [facility] [address] [place] [address] Dede Castro PharmD [address] [place] [address] documented as of this encounter Goals Goal [...] WHOLE BLOOD Routine 06/15/2025 9:41 AM EDT documented in this encounter Results * (ABNORMAL) Glucose, Whole Blood (06/15/2025 9:41 AM EDT) Glucose, Whole Blood 181(H) 60 - 115 mg/dL [facility] Comment:METER #: [id number] Testing performed in the Endocrinology Department [address] , [address], [facility]. 06/15/2025 9:41 AM EDT 06/15/2025 9:46 AM EDT us Generic External Data Provider LAB BLOOD ORDERAB LES Final Result [facility] [address] [place] [phone] documented in this encounter Visit Diagnoses Not on filedocumented in this encounter Additional Health Concerns Assessment Noted Time PHQ-9 Depression Total Score: 0 10/25/19 25 3:28 PM EST documented as of this encounter Care Teams Occupational Health Nurse Relationship Specialty Start Date End Date Caprice Purdy MD [address] [place] [address] PCP - General Family Medicine 10/11/18 Dede Castro, PharmD [address] [place] [address] Pharmacist Internal Medicine 08/20/23 Josué River MD [address] [place] [address] Endocrinology 10/24/24 documented as of this encounter
== END 2025-06-15 10:21 | disposition home or self-care (01) ==
LOC: HO.ENCR 09:20
PROVIDERS: PCP Family Medicine; Visit Provider Physician Assistant
DX: L03.113 Cellulitis of right upper limb (principal); E11.65 Type 2 diabetes mellitus with hyperglycemia; Z79.4 Long term (current) use of insulin

== ENCOUNTER → 2025-06-15 09:19 | Outpatient (BNVA) | payer OTHER, SELFPAY | PROVIDERS: PCP Family Medicine; Visit Provider Physician Assistant | DX: E11.65 Type 2 diabetes mellitus with hyperglycemia (principal); L03.113 Cellulitis of right upper limb; Z79.84 Long term (current) use of oral hypoglycemic drugs; Z79.4 Long term (current) use of insulin | CPT/HCPCS: 82947; 99212 ==

== ENCOUNTER 2025-07-13 09:53 | Outpatient (AMB) | payer OTHER, SELFPAY ==
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
[2025-07-13 09:58] VITALS: BP 128/74; PULSE 77; O2SAT 97; BMI 29.9
[2025-07-13 10:16] LABS: Glucose, Whole Blood 235 mg/dL (60-115)
--- OUTSIDE RECORDS SUMMARY | 2025-07-13 10:34 | XMS_ITS | Encounter Summary ---
Author Organization [employer] [facility] Address [address] [facility] 7t [place] [address] Care Team Providers Care Call Or Contact Centre Team Leader Name Role Phone Caprice Purdy MD Primary Care Provider [phone]- [phone] Dede Castro PharmD Unavailable [phone] Dede Castro PharmD Unavailable [phone] Josué River MD Unavailable [phone] Encounter Details Date Type Department Care Team (Late st Contact Info) Description 05/18/2023 Abstract [facility] [address] [place] [address] Caprice Purdy MD [address] [place] [address] Social History Tobacco Use Types Packs/Day Years [...] Care Team (Late st Contact Info) Description 07/17/2025 10:00 AM EDT Medication Management [facility] [address] [place] [address] Dede Castro PharmD [address] [place] [address] documented as of this encounter Goals Goal [...] documented as of this encounter Care Teams Call Or Contact Centre Team Leader Relationship Specialty Start Date End Date Caprice Purdy MD [address] [place] [address] PCP - General Family Medicine 10/11/18 Dede Castro PharmD [address] [place] [address] Pharmacist Internal Medicine 10/08/22 08/19/23 Dede Castro PharmD [address] [place] [address] Pharmacist Internal Medicine 08/20/23 Josué River MD [address] [place] [address] Endocrinology 10/24/24 documented as of this encounter
--- OUTSIDE RECORDS SUMMARY | 2025-07-13 10:34 | XMS_ITS | Encounter Summary ---
Author Organization [employer] Address [address] [facility] 7t [place] [address] Care Team Providers Care Product Applications Scientist Name Role Phone Caprice Purdy MD Primary Care Provider +- [phone] Dede Castro PharmD Unavailable [phone] Josué River MD Unavailable [phone] Encounter Details Date Type Department Care Team (Late st Contact Info) Description 07/13/2025 Orders Only GENERIC EXTERNAL DATA DEPARTMENT Provider, [...] Description 07/17/2025 10:00 AM EDT Medication Management [facility]INE [address] [place] [address] Dede Castro PharmD [address] [place] [address] documented as of this encounter Goals Goal Patient Goal Type Associated Problems Recent Progress Patient-Stated? Author Blood Pressure < 140/90 Blood Pressure 150/82(2024 10:38 AM EDT) No Dede Greenfield PharmD Hemoglobin A1c < 7 Result Component 7.8( 9:42 AM EDT) No Dede Greenfield PharmD documented as of this encounter Procedures Procedure Name Priority Date/Time Associated Diagnosis Comments GLUCOSE, WHOLE BLOOD Routine 07/13/2025 10:10 AM EDT documented in this encounter Results * (ABNORMAL) Glucose, Whole Blood (07/13/2025 10:10 AM EDT) Glucose, Whole Blood 235(H) 60 - 115 mg/dL [facility] Comment:METER #: [id number] 0Testing performed in the Endocrinology Department [address] , [address], [facility]. 07/13/2025 10:1 0 AM EDT 07/13/2025 10:15 AM EDT us Generic External Data Provider LAB BLOOD ORDERAB LES Final Result [facility] [address] [place] [address] [phone] documented in this encounter Visit Diagnoses Not on filedocumented in this encounter Additional Health Concerns Assessment Noted Time PHQ-9 Depression Total Score: 0 10/25/19 3:28 PM EST documented as of this encounter Care Teams Product Applications Scientist Relationship Specialty Start Date End Date Caprice Purdy MD [address] [place] [address] PCP - General Family Medicine 10/11/18 Dede Castro, TysonD [address] [place] [address] Pharmacist Internal Medicine 08/20/23 Josué River MD [address] [place] [address] Endocrinology 10/24/24 documented as of this encounter
--- OUTSIDE RECORDS SUMMARY | 2025-07-13 10:34 | XMS_ITS | Encounter Summary ---
Author Organization [employer] [facility] Address [address] [facility] 7t [place] [address] Care Team Providers Care Impregnator And Drier Helper Name Role Phone Caprice Purdy MD Primary Care Provider + [phone] Lupe Castrosa PharmD Unavailable [phone] BryansGallito Dede PharmD Unavailable [phone] Josué River MD Unavailable [phone] Encounter Details Date Type Department Care Team (Late Contact Info) Description 10/27/[address] [facility] [address] [place], [place] [phone] Svetlana Serna LPN Social History Tobacco Use [...] Department Care Team (Late Contact Info) Description 07/17/2025 10:00 AM EDT Medication Management [facility] [address] [place], [place] [phone] Bryans-Lupe Bledsoesa, PharmD [address] [place] [address] documented as of this encounter Visit Diagnoses Not on filedocumented in this encounter Care Teams Impregnator And Drier Helper Relationship Specialty Start Date End Date Caprice Purdy MD [address] [place] [address] PCP - General Family Medicine 10/11/18 Dede Castro, PharmD [address] [place] [address] Pharmacist Internal Medicine 10/08/22 08/19/23 Dede Castro, PharmD [address] [place] [address] Pharmacist Internal Medicine 08/20/23 Josué River MD [address] [place] [address] [address] [place] [address] Endocrinology 10/24/24 documented as of this encounter
--- OUTSIDE RECORDS SUMMARY | 2025-07-13 10:34 | XMS_ITS | Encounter Summary ---
Author Organization [employer] [facility] Address [address] [place] [address] [address] [address] Care Team Providers Care Garden Center Manager Name Role Phone Caprice Purdy MD Primary Care Provider Dede Castro PharmD Unavailable [phone] Dede Castro PharmD Unavailable [phone] Josué River MD Unavailable [phone] Reason for Visit * Reason Comments Med Refill Encounter Details Date Type Department Care Team (Late st Contact Info) Description 03/15/2023 Refill [facility] [address] [place] [address] Dede Castro, PharmD [address] [place] [address] Hypertension, essential; Familial hypertriglyceridemia; Type 2 diabetes mellitus without complication, without long-term current use of insulin ([facility]); Dyslipidemia Social History Tobacco Use [...] Description 07/17/2025 10:00 AM EDT Medication Management [facility] [address] [place] [address] Dede Castro PharmD [address] [place] [address] documented as of this encounter Goals Goal Patient Goal Type Associated Problems Recent Progress Patient-Stated? Author Blood Pressure < 140/90 Blood Pressure 150/82( 025 10:38 AM EDT) No Dede Greenfield PharmD documented as of this encounter Visit Diagnoses Diagnosis Hypertension, essential Unspecified essential hypertension Familial hypertriglyceridemia Pure hyperglyceridemia Type 2 diabetes mellitus without complication, without long-term current use of insulin (HCC) Dyslipidemia Other and unspecified hyperlipidemia documented in this encounter Additional Health Concerns Assessment Noted Time PHQ-9 Depression Total Score: 0 11/25/19 23 9:39 AM EST documented as of this encounter Care Teams Garden [place] Manager Relationship Specialty Start Date End Date Caprice Purdy MD [address] [place] [address] PCP - General Family Medicine 10/11/18 Dede Castro PharmD [address] [place] [address] Pharmacist Internal Medicine 10/08/22 08/19/23 Dede Castro PharmD [address] [place] [address] Pharmacist Internal Medicine 08/20/23 Josué River MD [address] [place] [address] Endocrinology 10/24/24 documented as of this encounter
--- OUTSIDE RECORDS SUMMARY | 2025-07-13 10:34 | XMS_ITS | Encounter Summary ---
Author Organization [employer] [facility] Address [address] [facility] 7[address] [place] [address] Care Team Providers Care Director Validation Name Role Phone Caprice Purdy MD Primary Care Provider [phone] Dede Castro PharmD Unavailable [phone] Dede Castro PharmD Unavailable [phone] Josué River MD Unavailable [phone] Encounter Details Date Type Department Care Team (Late st Contact Info) Description 12/21/2022 Orders Only [facility] MEDICINE [address] [place] [address] Caprice Purdy MD [address] [place] [address] Recurrent pancreatitis (Primary Dx) Social History Tobacco [...] Description 07/17/2025 10:00 AM EDT Medication Management [facility] [address] [place] [address] Dede Castro PharmD [address] [place] [address] documented as of this encounter Goals Goal [...] documented as of this encounter Care Teams Director Validation Relationship Specialty Start Date End Date Caprice Purdy MD [address] [place] [address] PCP - General Family Medicine 10/11/18 Dede Castro PharmD [address] [place] [address] Pharmacist Internal Medicine 10/08/22 08/19/23 Dede Castro PharmD [address] [place] [address] Pharmacist Internal Medicine 08/20/23 Josué River MD [address] [place] [address] [address] [place] [address] Endocrinology 10/24/24 documented as of this encounter
--- OUTSIDE RECORDS SUMMARY | 2025-07-13 10:34 | XMS_ITS | Clinical Summary ---
Author Organization [employer] Address [address] [facility] [address] [place] [address] Care Team Providers Care Back Tender Name Role Phone Caprice Purdy MD Primary Care Provider [phone]- [phone] Dede Castro PharmD Unavailable Josué River MD Unavailable [phone] Allergies No known active allergies Medications * This document contains information received from the source organization and may not represent a complete record from that organization. metFORMIN XR (Glucophage-XR) 500 MG 24 hr tabletIndications:Type 2 diabetes mellitus with hyperglycemia, with long-term current use of insulin (HCC) Take 500 mg by mouth 2 times daily. Do not crush, chew, or split. Active insulin pen needle (Sure Comfort Pen Fordyce) 31G x 5 mm miscIndications:Type 2 diabetes mellitus with hyperglycemia, with long-term current use of insulin (HCC) USE FOUR TIMES DAILY WITH INSULIN 100 [...] 16 TABLETS IN 24 HOURS 2024 Active insulin aspart FlexPen (NovoLOG) 100 UNIT/ML pen INJECT 20 UNITS SUBCUTANEOUSLY BEFORE BREAKFAST AND 18 UNITS BEFORE LUNCH 2024 Active FLUoxetine (PROzac) 20 MG capsuleIndications:Cur rent moderate episode of major depressive disorder without prior episode (CMS/HCC) (HCC) TAKE 1 CAPSULE BY MOUTH EVERY MORNING [...] hyperglycemia, with long-term current use of insulin ([facility]) TEST BLOOD SUGAR TWICE DAILY 100 each 11 2024 Active lisinopril 30 MG tabletIndications:Esse ntial hypertension Take 1 tablet (30 mg) by mouth Once per day. 90 tablet 2024 Active Lantus SoloStar 100 UNIT/ML pen INJECT 42 UNITS SUBCUTANEOUSLY AT BEDTIME 2024 Active FreeStyle Precision Ren Test test stripIndications:Type 2 diabetes mellitus with hyperglycemia (HCC) TEST BLOOD SUGAR EVERY 8 HOURS DIRECTED 100 strip 11 2024 Active FreeStyle Precision Ren Test test strip TEST BLOOD SUGAR EVERY 8 HOURS DIRECTED 06/28 Discontinued Active Problems Patient Care Coordination No te Formatting of this note migh t be different from the original. Enrolled in [facility] HTN clinic with Dede Castro, TysonD, CDCES. Followed by Dr River endocrinology as of 08/18/23 [facility] Pole Inspector: Elina Environmental A[employer] Agency: [employer] [facility], [facility] Problem Noted Date Diagnosed Date Severe [...] [facility]Today stable, controlled. Denies suicidial [...] [facility]Today stable, controlled. Denies suicidial [...] [facility] Assessment & Plan (06/16/2023 11:16 AM EDT): PHQ9 today is 6,denies SI ,sister reports he also has episodes of irritability that started after TBI -pt on fluoxetine -will hold on changes x now -today evaluated pt and pt refused outpt psychotx but agreed to me for psychiatrist referral -referred to outpt psychiatrist to be done by Ro Lopez History of traumatic brain injury 05/27/2023 [...] Overview (01/22/2025): Hx multiple bouts of pancreatitis [id number]/[email or web address], 12/2023, 04/11/24, 04/19/24, 10/16/24, 01/21/25 likely from EtOH in setting severe of hypertriglyceridemia. -CT 04/11/24 and 10/16/24 abdomen pelvis w IV conFindings consistent with acute pancreatitis. No evidence of pancreatic necrosis or drainable fluid collection. -followed by Dr. River meat cutting block repairer -admissions 04/14/24 and 04/19/24. Acute pancreatitis due to hypertriglyceridemia. Initially admitted to the ICU for insulin drip and started on Lopid. Triglyceride levels decreasing from 2430 to 524. Lipase trended down. He reports that he was taking his fenofibrate daily as scheduled, will stop and replace with gemfibrozil during hospital stay. -admissions 04/14/24 Acute pancreatitis due to hypertriglyceridemia. -presented to [facility] ED 10/16/24, admitted till 10/18/24 for [...] AM EDT): Hx multiple bouts of pancreatitis [id number]/[email or web address], 12/2023, 04/11/24, 04/19/24, 10/16/24, 01/21/25 likely from EtOH in setting severe of hypertriglyceridemia. -CT 04/11/24 and 10/16/24 abdomen pelvis w IV conFindings consistent with acute pancreatitis. No evidence of pancreatic necrosis or drainable fluid collection. -followed by Dr. River meat cutting block repairer -admissions 04/14/24 and 04/19/24. Acute pancreatitis due to hypertriglyceridemia. Initially admitted to the ICU for insulin drip and started on Lopid. Triglyceride levels decreasing from 2430 to 524. Lipase trended down. He reports that he was taking his fenofibrate daily as scheduled, will stop and replace with gemfibrozil during hospital stay. -admissions 04/14/24 Acute pancreatitis due to hypertriglyceridemia. -presented to [facility] ED 10/16/24, admitted till 10/18/24 for [...] PM EST): Hx multiple bouts of pancreatitis [id number], 12/2023, 04/11/24, 04/19/24., 10/16/24 likely from EtOH in setting severe of hypertriglyceridemia. -CT 04/11/24 and 10/16/24 abdomen pelvis w IV conFindings consistent with acute pancreatitis. No evidence of pancreatic necrosis or drainable fluid collection. -followed by Dr. River meat cutting block repairer -admissions 04/14/24 and 04/19/24. Acute pancreatitis due to hypertriglyceridemia. Initially admitted to the ICU for insulin drip and started on Lopid. Triglyceride levels decreasing from 2430 to 524. Lipase trended down. He reports that he was taking his fenofibrate daily as scheduled, will stop and replace with gemfibrozil during hospital stay. -admissions 04/14/24 Acute pancreatitis due to hypertriglyceridemia. -presented to [facility] ED 10/16/24, admitted till 10/18/24 for evaluation of upper abdominal pain, nausea and vomiting. BG found to be 406 mg/dl and triglycerides 1250 mg/dl. CT abdomen/pelvis showed acute pancreatitis. Admitted to ICU and started on aggressive IVF and insulin drip with down trending triglycerides to 480. Abdominal pain resolved. Assessment & Plan (05/17/2024 10:30 AM EDT): Hx multiple bouts of pancreatitis [id number]/[email or web address], 12/2023, 04/11/24, 04/19/24 likely from EtOH in setting severe of hypertriglyceridemia. -CT 04/11/24 abdomen pelvis w IV conFindings consistent with acute pancreatitis. No evidence of pancreatic necrosis or drainable fluid collection. -followed by Dr. River meat cutting block repairer -admissions 04/14/24 and 04/19/24. Acute pancreatitis due [...] hypertriglyceridemia. -he refuses [facility] Use Disorder Clinic [facility] referral Assessment & Plan (01/17/2024 11:20 AM EDT): Hx multiple bouts of pancreatitis most recents 08/2023 and 12/2023 likely from EtOH in setting severe of hypertriglyceridemia. -followed by Dr. River meat cutting block repairer Assessment & Plan (08/25/2023 9:12 AM EST): Hx multiple bouts of pancreatitis most recent 08/2023 likely from EtOH in setting severe of hypertriglyceridemia. -followed by Dr. River meat cutting block repairer Assessment & Plan (06/16/2023 12:42 PM EDT): [...] no phlegmon,no fluid collection noted per hospital . -discussed w pt about ETOH use to [...] -lost care -referred as [facility] and requested demo specialist to Try to get an early apt -In regards Small amount of thrombus in the distal splenic vein in the portal splenic confluence reported in CT scan is a known complications from pancreatitis -from dc pt was not started on AC and [...] due after 10/25/25 -eye care facilitated by [facility], last apt 11/15/23 -dental home is [facility] -Health care proxy already filed, have a copy at home Assessment & Plan (10/25/2024 3:41 PM EST): -next physical exam due after 10/25/25 -eye care facilitated by [facility], last apt 11/15/23 -dental home is [facility] -Health care proxy already filed, have a copy at home Assessment & Plan (05/17/2024 9:33 AM EDT): -next physical exam due after 08/25/2024 -eye care facilitated by [facility], last apt 11/15/23 -dental home is [facility] -Health care proxy already filed, have a copy at home Assessment & Plan (01/17/2024 11:15 AM EDT): -next physical exam due after 08/25/2024 -eye care facilitated by [facility], last apt 11/15/23 -dental home is [facility] -Health care proxy already filed, have a copy at home Assessment & Plan (08/25/2023 9:41 AM EST): -next physical exam due after 08/25/2024 -eye care facilitated by [facility], last apt 07/15/2022 -dental home is Family [...] disorder and alcohol use disorder admitted to [facility] 02/24/2022-03/06/2022 for command auditory hallucinations. -follow [...] disorder and alcohol use disorder admitted to [facility] 02/24/2022-03/06/2022 for command auditory hallucinations. -follow [...] disorder and alcohol use disorder admitted to [facility] 02/24/2022-03/06/2022 for command auditory hallucinations. -follow [...] disorder and alcohol use disorder admitted to [facility] 02/24/2022-03/06/2022 for command auditory hallucinations. -follow up with Dr. Lisbeth sanon MD -continue fluoxetine 20mg po daily -He did not f/u with Dr. Bob and refuses psychiatric care. -Mom advised to call 911 if she fears for her safety and Pt understands this plan. 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 River Lab Results Component Value Date [...] levels decrease and pain resolves. Follows with [facility]. -last seen 02/09/25 no med changes. Assessment & Plan (03/01/2025 9:32 AM EDT): Likely familial hyperuricacidemia, followed by meat cutting block repairer, Dr. River Lab Results Component Value Date [...] levels decrease and pain resolves. Follows with [facility]. -last seen 02/09/25 no med changes. Assessment & Plan (10/25/2024 3:41 PM EST): Likely familial hyperuricacidemia, followed by meat cutting block repairer, Dr. River Lab Results Component Value Date CHOLESTEROL 142 09/30/2020 LDLCHOL SEE COMMENT 09/30/2020 TRIG 1,250 (H) 10/16/2024 TRIG 128 05/04/2024 TRIG 2,430 (H) 04/11/2024 HDLCHOL 27 (L) 09/30/2020 CHOLHDLRAT 5.3 (H) 09/30/2020 -triglycerides > 5,000 at highest but went to 159 with the addition of Hillarya and sister involved making sure to take [...] with gemfibrozil. -Has appt. with Dr. River, meat cutting block repairer 05/2024 Assessment & Plan (05/17/2024 10:25 AM EDT): Likely familial hyperuricacidemia, followed by meat cutting block repairer, Dr. River Lab Results Component Value Date [...] with gemfibrozil. -Has appt. with Dr. River, meat cutting block repairer 05/2024 Assessment & Plan (01/17/2024 11:18 AM EDT): Likely familial hyperuricacidemia, followed by Dr. River meat cutting block repairer Lab Results Component Value Date CHOLESTEROL 142 [...] Likely familial hyperuricacidemia, followed by Dr. River meat cutting block repairer Lab Results Component Value Date CHOLESTEROL 142 [...] 3:09 PM EDT): [facility] pt used to f w meat cutting block repairer Dr. Calabrese,Labs on 11/05/2020 show an LDL [...] 134 daily -continue atorvastatin 80 daily -continue Chaseley 3 2 gram bid -followed by endocrinology, [...] as pharmacomtherapy, [facility] smoking cessation group, and [facility] pharmacy smoking cessation clinic Discussed USPSTF recommends [...] as pharmacomtherapy, [facility] smoking cessation group, and [facility] pharmacy smoking cessation clinic Discussed USPSTF recommends [...] as pharmacomtherapy, [facility] smoking cessation group, and [facility] pharmacy smoking cessation clinic Discussed USPSTF recommends [...] Encouraged smoking cessation resources such as pharmacomtherapy, [facility] smoking cessation group, and [facility] pharmacy smoking cessation clinic Discussed USPSTF recommends [...] long-term current use of insulin 12/09/2021 Overview (06/19/2025): Diabetes is not controlled. Followed by [facility] endocrine, Dr. River since 08/19/2023. Doing much better with meat cutting block repairer and sister involved. Education for insulin pump [...] -Continue current medications: -metformin 500mg ER BID Increase metformin to 1000 mg twice a day 06/15/25 - start NovoLog sliding scale as listed below 06/15/25s -Lantus 42 unidades ayad per endo note 02/06/24 -note from Heel Wheeler, Dr. Josué River 06/15/25 reviewed. Being evaluated for insulin pump. -admissions 04/14/24 Acute pancreatitis due to hypertriglyceridemia. Initially admitted to the ICU for insulin drip and started on Lopid. -has appt. to get insulin pump placed 11/09/24 From insulin aspart U-100 (Novolog FlexPen U-100 Insulin [...] EDT): Diabetes is not controlled. Followed by [facility] endocrine, Dr. River since 08/19/2023. Doing much better with meat cutting block repairer and sister involved. Education for insulin pump [...] ayad per endo note 02/06/24 -note from Heel Wheeler, Dr. Josué River 03/15/24 reviewed. Being evaluated [...] EST): Diabetes is not controlled. Followed by [facility] endocrine, Dr. River since 08/19/2023. Doing much better with meat cutting block repairer and sister involved. Education for insulin pump [...] before breakfast to avoid hypoglycemia 02/23/24 via meat cutting block repairer, Dr River -Anson 40 unidades ayad per endo note 02/06/24 -note from Heel Wheeler, Dr. Josué River 03/15/24 reviewed. Being evaluated for insulin pump. -admissions 04/14/24 Acute pancreatitis due to hypertriglyceridemia. Initially admitted to the ICU for insulin drip and started on Lopid. -has appt. to get insulin pump placed 11/09/24 Assessment & Plan (05/17/2024 10:27 AM EDT): DDiabetes is not controlled. Followed by [facility] endocrine, Dr. River since 08/19/2023. Doing much better with meat cutting block repairer and sister involved. Education for insulin pump [...] before breakfast to avoid hypoglycemia 02/23/24 via meat cutting block repairer, Dr River -Lantus 40 unidades ayad per endo note 02/06/24 -note from Heel Wheeler, Dr. Josué River 03/15/24 reviewed. Being evaluated for insulin pump. -admissions 04/14/24 Acute pancreatitis due to hypertriglyceridemia. Initially admitted to the ICU for insulin drip and started on Lopid. Assessment & Plan (01/17/2024 11:19 AM EDT): Diabetes is not controlled. Followed by [facility] endo since 08/19/2023. Doing much better [...] is not controlled.Seen as new pt at [facility] endo 08/19/2023, note requested. Doing much [...] months Essential hypertension 12/09/2021 Overview (03/01/2025): -Dx 9 based on 2 BP > 140/90. -Today, BP slightly elevated, will continue to monitor at home and follow-up with CD[facility] -continue lisinopril 20mg daily -continue amlodipine 5mg daily -referred to [facility] Therapy [facility]agment Program with our PharmDUSHA 03/01/25 Assessment & Plan (03/01/2025 9:32 AM EDT): -Dx based on 2 BP > 140/90. -Today, BP slightly elevated, will continue to monitor at home and follow-up with CD[facility] -continue lisinopril 20mg daily -continue amlodipine 5mg daily -referred to Collaborative Drug Therapy Managment Program with our PharmDUSHA 03/01/25 Assessment & Plan (10/25/2024 3:31 PM EST): -Dx 9 based on 2 BP > 140/90. -Today, BP at goal -continue lisinopril 20mg daily -continue amlodipine 5mg daily Assessment & Plan (05/17/2024 10:23 AM EDT): -Dx 9019 based on 2 BP > 140/90. -Today, BP at goal -continue lisinopril 20mg daily -continue amlodipine 5mg daily Assessment & Plan (01/17/2024 11:21 AM EDT): -Dx 9019 based on 2 BP > 140/90. -continue lisinopril 20mg daily -continue amlodipine Decreased to 5mg daily due to bp at goal and held in hospital 08/2023 Assessment & Plan (08/25/2023 9:25 AM EST): -Dx 9/ based on 2 BP > 140/90. -continue lisinopril 20mg daily -continue amlodipine decreased to 5mg daily due to bp at goal and held in hospital 08/2023 Assessment & Plan (06/16/2023 12:37 PM EDT): -Dx 9/ based on 2 BP > 140/90. -continue lisinopril 20mg daily -continue amlodipine 10mg dialy Assessment & Plan (11/17/2022 2:06 PM EST): Dx based on 2 BP > 140/90. Advised [...] of major depressive disorder without prior episode ([facility]) 09/16/2012 Overview (05/17/2024): Denies suicidial or homacidial [...] trigger. 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 PCP requested external referral for psychiatry as patient agreed to that service; provider will complete. At this time Ruy Valencia meets criteria for Visit Diagnoses: Problem List Items Addressed This Visit Nervous Developmental delay Other Current moderate episode of major depressive disorder without prior episode (CMS/[facility]) Alcohol abuse Patient ready to address current needs No Strengths include support from sister PLAN: 1. Follow up with [facility]: Not recommended for follow-up 2. Patient goal is to stop drinking alcohol 3. Behavioral Recommendations a. Patient may request to be connected to [facility] at any time b. Patient may reach [...] Encounters Date Type Department Care Team Description 07/13/2025 Orders Only GENERIC EXTERNAL DATA DEPARTMENT Provider, Generic External Data 07/02/2025 Telephone [facility] [address] [place] [address] Caprice Purdy MD 06/28/2025 Refill [facility] [address] [place] [address] Caprice Purdy MD Type 2 diabetes mellitus with hyperglycemia (CMS/[facility]) 06/15/2025 Orders Only GENERIC EXTERNAL DATA DEPARTMENT Provider, Generic External Data 06/06/2025 Orders Only GENERIC EXTERNAL DATA DEPARTMENT Provider, Generic External Data 05/30/2025 Travel 05/24/2025 Refill [facility]INE [address] [place] [address] [phone] Caprice Purdy MD Familial hypertriglyceridemia; Type 2 diabetes mellitus with hyperglycemia, with long-term current use of insulin ([facility]) 05/23/2025 Refill [facility] [address] [place] [address] [phone] Caprice Purdy MD Alcohol abuse 05/22/2025 Telephone [facility] [address] [place] [address] [phone] Caprice Purdy MD Appointment Request 05/20/2025 Refill [facility] [address] [place] [address] [phone] Caprice Purdy MD Essential hypertension 04/30/2025 Orders Only GENERIC EXTERNAL DATA DEPARTMENT Provider, Generic External Data 04/27/2025 Refill [facility] PEDS [address] [place], [place] [phone] Caprice Purdy MD Current moderate episode of major depressive disorder without prior episode ([facility]) 04/25/2025 Orders Only GENERIC EXTERNAL DATA DEPARTMENT Provider, Generic External Data 04/25/2025 Telephone [facility] [address] [place] [address] [phone] Caprice Purdy MD 04/18/2025 Telephone [facility] [address] [place] [address] [phone] Caprice Purdy MD Medication Question from Last 3 Months Immunizations Immunization Administration Dates Next Due Hep A, Adult 08/06/2009,07/26/2008 Hep B, adult 08/06/2009,09/27/2008,07/26/2008 Influenza Injectable Quadriv alant Preservative Free IIV4 MDCK 08/18/2023,07/06/2022 Influenza injectable quadriv alent IIV4 with preservative 09/09/2017,08/28/2015 Influenza injectable quadriv alent preservative free 09/30/2020,07/10/2019,09/12/2018,2015 Influenza, IIV3, injectable 06/25/2009,10/16/200 8 Influenza, Split (incl. jordan fied surface [...] Description 07/17/2025 10:00 AM EDT Medication Management [facility] [address] [place] [address] Dede Castro, PharmD [address] [place] [address] Health Maintenance Due Date Last Done Comments Dental Oral Exam 1980 Dental Prophylaxis 1980 Dental X-Ray: Bitewings 1980 HPV Vaccines (1 - Male 3-dose series) 12/24/1995 Influenza Vaccine (#1) 2025 5, 10/25/2024, 08/18/2023, Additional history exists Diabetes: Hemoglobin A1C 09/06/2025 025, 03/01/2025, 10/25/2024, Additional history exists Depression Screening 10/25/2025 10/25/2024, 10/25/19 25 Diabetes: Foot Exam 10/25/2025 10/25/2024, 10/25/2024, 10/25/2024, Additional history exists Family Planning (PISQ) 10/25/2025 10/25/2024 Eye Exam 11/15/2025 11/15/2023, 07/15/2022 Lipid Panel 02/12/2026 02/12/2025, 07/2 02/2024, 05/31/2023, Additional history exists Alcohol/Substance Use Screening [...] WHOLE BLOOD Routine 07/13/2025 10:10 AM EDT GLUCOSE, WHOLE BLOOD Routine 06/15/2025 9:41 AM [...] Maintenance Results * (ABNORMAL) Glucose, Whole Blood (07/13/2025 10:10 AM EDT) Only the most recent of3 resultswithin the time period is included. Pathologist [facility] Glucose, Whole Blood 235(H) 60 - 115 mg/dL [facility] Comment:METER #: [id number] 0Testing performed in the Endocrinology Department [address] , [address], [place]. 07/13/2025 10:1 0 AM EDT 07/13/2025 10:15 AM EDT us Generic External Data Provider LAB BLOOD ORDERAB LES Final Result [facility] [address] [place] [address] [phone] * (ABNORMAL) CBC (06/06/2025 9:42 AM EDT) [facility] White Blood Count 6.2 4.8 - 10.8 X10*3/uL [facility] Red Blood Count 4.85 4.60 - 5.80 X10*6/uL [facility] Hemoglobin 15.2 14.0 - 18.0 g/dl [facility] Hematocrit 43.5 42.0 - 52.0 % [facility] Mean Corpuscular Volume 89.7 80.0 - 98.0 fL [facility] Mean Corpuscular Hemoglobin 31.3 27.0 - 33.0 pg [facility] Mean Corpuscular HGB Conc 34.9 31.0 - 36.0 g/dl [facility] Red Cell Distribution Width 12.1 11.0 - 16.0 % [facility] Platelet Count 194 160 - 400 X10*3/uL [facility] Mean Platelet Volume 9.3(L) 9.4 - 12.4 fL [facility] NRBC Pct Auto 0.0 0.0 - 0.2 /100WBC [facility] NRBC Abs Auto 0.000 0.0 - 0.012 X10*3/uL [facility] 06/06/2025 9:42 AM EDT 06/06/2025 9:42 AM EDT Generic External Data Provider LAB BLOOD ORDERAB LES Final Result Performing Organization Address [facility] Co de Phone Number [facility] [address] [place] [address] [phone] * (ABNORMAL) Hemoglobin A1c (06/06/2025 9:42 AM EDT) Hemoglobin A1c 7.8(H) <6.0 % [facility] Comment:Hemoglobin A1C Refer ence Range Adults: 4.8 - 6.0 % Non diabetic: < 6.0 % Goal: < 7.0 %Additional Action Suggested: > 8.0 %Note: Hemoglobin A1c results are invalid for patients with abnormal amounts of HbF. Blood transfusions may impact the HbA1c concentration in the patient sample. Estimated Average Glucose 177 mg/dL [facility] Comment:eAG = Estimated ave rage glucose which is %A1C expressed asaverage glucose, using the formula of the J6P-FblqjajGsuhytt Glucose study (ADAG), Diabetes Care, Vol.31,#8,May. 2007 06/06/2025 9:42 AM EDT 06/06/2025 9:42 AM EDT Generic External Data Provider LAB BLOOD ORDERAB LES Final Result Performing Organization Address [facility] Co de Phone Number [facility] [address] [place] [address] [phone] * Albumin, Random Urine W/Creatinine (06/06/2025 9:35 AM EDT) Creatinine, Urine 347.73 mg/dL [facility] Microalbumin Urine 47.0 mg/L [facility] Microalbum Creatinine Ratio Ur 13.5 <30 ug/mg cr [facility] Comment:Albumin/Creatinine R at Reference Ranges: Normal: < 30 ug/mg creatinine Microalbuminuria: 30 - 300 ug/mg creatinineClinical Albuminuria: > 300 ug/mg creatinine 06/06/2025 9:35 AM EDT 06/06/2025 10:33 AM EDT us Generic External Data Provider LAB URINE ORDERAB LES Final Result Performing Organization Address City/[facility]/ZIP Co de Phone Number [facility] [address] [place] [address] [phone] * (ABNORMAL) Glucose, Whole Blood (04/25/2025 8:02 PM EDT) Glucose, Whole Blood 126(H) 60 - 115 mg/dL [facility] Comment:METER #: [id number] 04/25/2025 8:02 PM EDT 04/25/2025 8:07 PM EDT us Generic External Data Provider LAB BLOOD ORDERAB LES Final Result Performing Organization Address [facility]/ZIP Co de Phone Number [facility] [address] [place] [address] [phone] * (ABNORMAL) CBC auto differential (04/25/2025 7:50 PM EDT) White Blood Count 7.1 4.8 - 10.8 X10*3/uL [facility] Red Blood Count 4.18(L) 4.60 - 5.80 X10*6/uL [facility] Hemoglobin 13.5(L) 14.0 - 18.0 g/dl [facility] Hematocrit 36.0(L) 42.0 - 52.0 % [facility] Mean Corpuscular Volume 86.1 80.0 - 98.0 fL [facility] Mean Corpuscular Hemoglobin 32.3 27.0 - 33.0 pg [facility] Mean Corpuscular HGB Conc 37.5(H) 31.0 - 36.0 g/dl [facility] Red Cell Distribution Width 11.9 11.0 - 16.0 % [facility] Platelet Count 192 160 - 400 X10*3/uL [facility] Mean Platelet Volume 8.9(L) 9.4 - 12.4 fL [facility] Neutrophils Percent Auto 67.6 45 - 73 % [facility] Imm Gran Pct Auto 0.6(H) 0.0 - 0.4 % [facility] Lymphocytes Percent Auto 21.5 20 - 40 % [facility] Monocytes Percent Auto 8.6 2 - 11 % [facility] Eosinophils Percent Auto 1.3 0 - 4 % [facility] Basophils Percent Auto 0.4 0 - 2 % [facility] NRBC Pct Auto 0.6(H) 0.0 - 0.2 /100WBC [facility] Neutrophils Absolute Auto 4.8 2.0 - 8.3 x10*3/uL [facility] Imm Gran Abs Auto 0.04(H) 0.00 - 0.03 X10*3/uL [facility] Lymphocytes Absolute Auto 1.5 1.2 - 4.9 X10*3/uL [facility] Monocytes Absolute Auto 0.6 0.1 - 1.2 X10*3/uL [facility] Eosinophils Absolute Auto 0.1 0.0 - 0.4 X10*3/uL [facility] Basophils Absolute Auto 0.0 0.0 - 0.2 X10*3/uL [facility] NRBC Abs Auto 0.040(H) 0.0 - 0.012 X10*3/uL [facility] 04/25/2025 7:50 PM EDT 04/25/2025 7:56 PM EDT us Generic External Data Provider LAB BLOOD ORDERAB LES Final Result [facility] [address] [place] [phone] * Magnesium (04/25/2025 7:50 PM EDT) [facility] Magnesium 2.0 1.6 - 2.6 mg/dL [facility] Comment:Marked Lipemia. Inte rpret result with caution. 04/25/2025 7:50 PM EDT 04/25/2025 7:56 PM EDT Generic External Data Provider LAB BLOOD ORDERAB LES Final Result Performing Organization Address [facility] Co de Phone Number [facility] [address] [place] [address] [phone] * Lipase (04/25/2025 7:50 PM EDT) [facility] Lipase 19 8 - 78 U/L [facility] Comment:Marked Lipemia. Inte rpret result with caution. 04/25/2025 7:50 PM EDT 04/25/2025 7:56 PM EDT Generic External Data Provider LAB BLOOD ORDERAB LES Final Result Performing Organization Address [facility] de Phone Number [facility] [address] [place] [address] [phone] * (ABNORMAL) Comprehensive Metabolic Panel (04/25/2025 7:50 PM EDT) [facility] Sodium 140 135 - 145 mmol/L [facility] Comment:Marked Lipemia. Inte rpret result with caution. Potassium 3.6 3.3 - 5.1 mmol/L [facility] Comment:Slight Hemolysis.Int erpret result with caution.Marked Lipemia. Interpret result with caution. Chloride 109(H) 96 - 108 mmol/L [facility] Comment:Marked Lipemia. Inte rpret result with caution. Carbon Dioxide 20(L) 22 - 29 mmol/L [facility] Comment:Marked Lipemia. Inte rpret result with caution. Anion Gap 15 12 - 20 [facility] Urea Nitrogen (BUN) 24(H) 9 - 16 mg/dL [facility] Comment:Marked Lipemia. Inte rpret result with caution. Creatinine, Serum 1.25 0.5 - 1.4 mg/dL [facility] Comment:Marked Lipemia. Inte rpret result with caution. Creatinine Clr Calc Pharmacy 71.2 [facility] Comment:eGFR (calculated fro m the MDRD study equation) and eCrCl(calculated from the Cockcroft-Gault equation) are based ondifferent parameters and may not yield comparable results.If eCrCl result is absurd, please check patient'sheight/weight. Estimated Glomerular Filt Rate >60 [facility] Comment:Chronic Kidney Disea se: Estimated GFR < 60 mL/min/1.38e0Aqnwqn Kidney Disease: Estimated GFR < 15 mL/min/1.73m2 Glucose 103 60 - 115 mg/dL [facility] Comment:Marked Lipemia. Inte rpret result with caution. Calcium 9.5 8.4 - 10.2 mg/dL [facility] Comment:Marked Lipemia. Inte rpret result with caution. Bilirubin, Total 0.2 0.0 - 1.0 mg/dL [facility] Comment:Marked Lipemia. Inte rpret result with caution. Aspartate Amino Transferase 24 5 - 37 U/L [facility] Comment:Slight Hemolysis.Int erpret result with caution.Marked Lipemia. Interpret result with caution. Alanine Aminotransferase 34 0 - 40 U/L [facility] Comment:1037-Unable to calcu late result. Rate reaction linearityfailure.Marked Lipemia. Interpret result with caution. Total Protein 8.4(H) 6.5 - 8.0 g/dL [facility] Comment:Marked Lipemia. Inte rpret result with caution. Albumin Level 4.5 3.5 - 5.0 g/dL [facility] Comment:Marked Lipemia. Inte rpret result with caution. Alkaline Phosphatase 96 39 - 117 U/L [facility] Comment:Marked Lipemia. Inte rpret result with caution. 04/25/2025 7:50 PM EDT 04/25/2025 7:56 PM EDT us Generic External Data Provider LAB BLOOD ORDERAB LES Final Result Performing Organization Address City/[facility]/ZIP Co de Phone Number [facility] [address] [place] [address] [phone] * (ABNORMAL) Lipid Panel, Standard (02/12/2025 9:30 AM EDT) Triglycerides 1,084(H) <150 mg/dL [facility] Comment:Desirable Triglyceri de: less than 150 mg/dLBorderline High Triglyceride 150-199 mg/dLHigh Triglyceride: 200-499 mg/dLVery High Triglyceride: greater than or equal to 5OO mg/dL Cholesterol 237(H) <200 mg/dL [facility] Comment:Desirable Cholestero l: less than 200 mg/dLBorderline High Cholesterol: 200-239 mg/dLHigh Cholesterol: greater than 239 mg/dL LDL Cholesterol Calculated TNP <100 mg/dL [facility] Comment:Unable to calculate the LDL. The formula of Friedwald,Rosas, and Tano is only valid if the triglycerides areless than 400 mg/dl. HDL Cholesterol 32(L) >40 mg/dL [facility] Comment:Desirable HDL: great er than 40 mg/dL Note: This HDL assay may give artificially low results in patients with liver disease. 02/12/2025 9:30 AM EDT 02/12/2025 9:30 AM EDT us Generic External Data Provider LAB BLOOD ORDERAB LES Final Result Performing Organization Address City/[facility]/ZIP Co de Phone Number [facility] [address] [place] [phone] * Hm Diabetes Eye Exam (11/15/2023) Eye Exam Normal Normal Comment:Dr. Callahan us Historical Provider HEALTH MAINTENANCE Final Result * Hepatitis C Antibody (01/03/2019 7:31 PM EDT) Hepatitis C Antibody Nonreactive Blood 01/03/2019 7:31 PM EDT us Historical Provider POINT OF CARE TEST ENTER/ EDIT ORDERABLES Final Result * HIV 1/2 ANTIGEN AND ANTIBODY (EXTERNAL RESULTS ONLY) (01/03/2019 7:30 PM EDT) HIV Ag/Ab Nonreactive 01/03/2019 7:30 PM EDT us Historical Provider LAB POINT OF CARE TEST DOCKED DEVICE UNSOLICITED RESULTS Final Result from Last 3 Months or Most Recently Relevant to Health Maintenance Insurance [facility] [address] [facility] Care Teams Back Tender Relationship Specialty Start Date End Date Gurwinder, MD Caprice [address] [place], [place] PCP - General Family Medicine 10/11/18 Dede Castro, TysonD [address] [place], [place] Pharmacist Internal Medicine 08/20/23 Josué River MD [address] [place], [place] Endocrinology 10/24/24
--- OUTSIDE RECORDS SUMMARY | 2025-07-13 10:34 | XMS_ITS | Encounter Summary ---
Author Organization [employer] Address [address] [facility] 7t [place] [address] Care Team Providers Care Bulker Name Role Phone Caprice Purdy MD Primary Care Provider +- [phone] Dede Castro PharmD Unavailable Josué River MD Unavailable [phone] Reason for Visit * Reason Onset Date Comments Med Refill 07/25/2024 Encounter Details Date Type Department Care Team (Late st Contact Info) Description 07/25/2024 Telephone [facility] MEDICINE [address] [place], [place] [phone] Caprice Purdy MD [address] [place], [place] [phone] Med Refill Social History Tobacco Use Types [...] (NOVOLOG FLEXPEN SC) To be sent to: [facility] [place], [place] - [address] [facility] documented in this encounter Plan of Treatment Upcoming Encounters Date Type Department Care Team (Late st Contact Info) Description 07/17/2025 10:00 AM EDT Medication Management [facility] MEDICINE [address] [place] [address] Dede Castro, PharmD [address] [place] [address] documented as of this encounter Goals Goal [...] documented as of this encounter Care Teams Bulker Relationship Specialty Start Date End Date Caprice Purdy MD [address] [place] [address] PCP - General Family Medicine 10/11/18 Dede Castro PharmD [address] [place] [address] Pharmacist Internal Medicine 08/20/23 Josué River MD [address] [place] [address] Drive [address] [place] [address] Endocrinology 10/24/24 documented as of this encounter
--- OUTSIDE RECORDS SUMMARY | 2025-07-13 10:34 | XMS_ITS | Encounter Summary ---
Author Organization [employer] [facility] Address [address] [place] [address] 7[address] [place] [address] Care Team Providers Care Food Beverage Server Name Role Phone Caprice Purdy MD Primary Care Provider + [phone] Dede Castro PharmD Unavailable [phone] Dede Castro PharmD Unavailable [phone] Josué River MD Unavailable [phone] Reason for Visit * Reason Comments Med Refill Encounter Details Date Type Department Care Team (Late st Contact Info) Description 06/22/2023 Refill [facility] MEDICINE [address] [place] [address] [phone] Alessandra Tovar MD [address] [place], [place] [phone] Social History Tobacco Use Types Packs/Day Years [...] Description 07/17/2025 10:00 AM EDT Medication Management [facility] MEDICINE [address] [place] [address] Dede Castro PharmD [address] [place] [address] documented as of this encounter Goals Goal [...] documented as of this encounter Care Teams Food Beverage Server Relationship Specialty Start Date End Date Caprice Purdy MD [address] [place] [address] PCP - General Family Medicine 10/11/18 Dede Castro, PharmD [address] [place] [address] Pharmacist Internal Medicine 10/08/22 08/19/23 Dede Castro, PharmD [address] [place] [address] Pharmacist Internal Medicine 08/20/23 Josué River MD [address] [place] [address] Endocrinology 10/24/24 documented as of this encounter
--- OUTSIDE RECORDS SUMMARY | 2025-07-13 10:34 | XMS_ITS | Encounter Summary ---
Author Organization [employer] [facility] Address [address] [place] [facility] 7t [place] [address] Care Team Providers Care Dispute Coordinator Name Role Phone Caprice Purdy MD Primary Care Provider Dede Castro PharmD Unavailable [phone] BryansGallito Dede PharmD Unavailable [phone] Josué River MD Unavailable [phone] Reason for Visit * Reason Comments Med Refill Encounter Details Date Type Department Care Team (Late st Contact Info) Description 10/07/2022 Refill [facility] [address] [place] [address] BryansDede Conti, PharmD [address] [place] [address] Hypertension, essential Social History Tobacco Use Types [...] Description 07/17/2025 10:00 AM EDT Medication Management [facility] MEDICINE [address] [place] [address] Dede Castro, PharmD [address] [place] [address] documented as of this encounter Visit Diagnoses Diagnosis Hypertension, essential Unspecified essential hypertension documented in this encounter Care Teams Dispute Coordinator Relationship Specialty Start Date End Date Caprice Purdy MD [address] [place] [address] PCP - General Family Medicine 10/11/18 Dede Castro PharmD [address] [place] [address] Pharmacist Internal Medicine 10/08/22 08/19/23 Dede Castro PharmD [address] [place] [address] Pharmacist Internal Medicine 08/20/23 Josué River MD [address] [place] [address] [address] [place] [address] Endocrinology 10/24/24 documented as of this encounter
--- OUTSIDE RECORDS SUMMARY | 2025-07-13 10:34 | XMS_ITS | Encounter Summary ---
Author Organization [employer] [facility] Address [address] [facility] 7t [place] [address] Care Team Providers Care Aircraft Launch And Recovery Technician Name Role Phone Caprice Purdy MD Primary Care Provider + [phone] Lupe Castrosa PharmD Unavailable [phone] BryansGallito Dede PharmD Unavailable [phone] Josué River MD Unavailable [phone] Encounter Details Date Type Department Care Team (Late Contact Info) Description 10/07/2022 Orders Only [facility]S [address] [place], [place] [phone] Svetlana Serna LPN Social History Tobacco Use [...] Upcoming Encounters Date Type Department Care Team ([facility] Contact Info) Description 07/17/2025 10:00 AM EDT Medication Management [facility] MEDICINE [address] [place], [place] [phone] Bryans-Lupe Bledsoesa, PharmD [address] [place] [address] documented as of this encounter Visit Diagnoses Not on filedocumented in this encounter Care Teams Aircraft Launch And Recovery Technician Relationship Specialty Start Date End Date Caprice Purdy MD [address] [place] [address] PCP - General Family Medicine 10/11/18 Dede Castro, PharmD [address] [place] [address] Pharmacist Internal Medicine 10/08/22 08/19/23 Dede Castro, PharmD [address] [place] [address] Pharmacist Internal Medicine 08/20/23 Josué River MD [address] [place] [address] [address] [place] [address] Endocrinology 10/24/24 documented as of this encounter
--- OUTSIDE RECORDS SUMMARY | 2025-07-13 10:35 | XMS_ITS | Encounter Summary ---
Author Organization [employer] [facility] Address [address] [place] [address] 7[address] [place] [address] Care Team Providers Care Pediatric Sports Medicine Specialist Name Role Phone Caprice Purdy MD Primary Care Provider + [phone] Dede Castro PharmD Unavailable [phone] Dede Castro PharmD Unavailable [phone] Josué River MD Unavailable [phone] Reason for Visit * Reason Comments Med Refill Encounter Details Date Type Department Care Team (Late st Contact Info) Description 06/16/2023 Refill [facility] MEDICINE [address] [place] [address] [phone] Alessandra Tovar MD [address] [place], [place] [phone] Social History Tobacco Use Types Packs/Day Years [...] Description 07/17/2025 10:00 AM EDT Medication Management [facility] MEDICINE [address] [place] [phone] Dede Castro PharmD [address] [place] [address] documented as of this encounter Goals Goal [...] documented as of this encounter Care Teams Pediatric Sports Medicine Specialist Relationship Specialty Start Date End Date Caprice Purdy MD [address] [place] [address] PCP - General Family Medicine 10/11/18 Dede Castro, PharmD [address] [place] [address] Pharmacist Internal Medicine 10/08/22 08/19/23 Dede Castro, PharmD [address] [place] [address] Pharmacist Internal Medicine 08/20/23 Josué River MD [address] [place] [address] Endocrinology 10/24/24 documented as of this encounter
--- OUTSIDE RECORDS SUMMARY | 2025-07-13 10:35 | XMS_ITS | Encounter Summary ---
Author Organization [employer] [facility] Address [address] [place] [address] [address] [address] Care Team Providers Care Building Specialist Name Role Phone Caprice Purdy MD Primary Care Provider + [phone] Dede Castro PharmD Unavailable [phone] Dede Castro PharmD Unavailable [phone] Josué River MD Unavailable [phone] Encounter Details Date Type Department Care Team (Late st Contact Info) Description 06/11/2023 Abstract [facility] MEDICINE [address] [place] [phone] Caprice Purdy MD [address] [place] [address] [phone] Social History Tobacco Use Types Packs/Day Years [...] Description 07/17/2025 10:00 AM EDT Medication Management [facility] MEDICINE [address] [place] [address] Dede Castro PharmD [address] [place] [address] documented as of this encounter Goals Goal [...] documented as of this encounter Care Teams Building Specialist Relationship Specialty Start Date End Date Caprice Purdy MD [address] [place] [address] PCP - General Family Medicine 10/11/18 Dede Castro PharmD [address] [place] [address] Pharmacist Internal Medicine 10/08/22 08/19/23 Dede Castro PharmD [address] [place] [address] Pharmacist Internal Medicine 08/20/23 Josué River MD [address] [place] [address] [address] [place] [address] Endocrinology 10/24/24 documented as of this encounter
== END 2025-07-13 10:26 | disposition home or self-care (01) ==
LOC: HO.ENCR 09:53
PROVIDERS: PCP Family Medicine; Visit Provider Physician Assistant
DX: E11.65 Type 2 diabetes mellitus with hyperglycemia (principal); Z79.4 Long term (current) use of insulin; I10 Essential (primary) hypertension

== ENCOUNTER → 2025-07-13 09:53 | Outpatient (BNVA) | payer OTHER, SELFPAY | PROVIDERS: PCP Family Medicine; Visit Provider Physician Assistant | DX: E11.65 Type 2 diabetes mellitus with hyperglycemia (principal); E78.1 Pure hyperglyceridemia; I10 Essential (primary) hypertension; Z79.4 Long term (current) use of insulin; Z79.84 Long term (current) use of oral hypoglycemic drugs | CPT/HCPCS: 82947; 99212 ==

== ENCOUNTER 2025-07-28 13:17 | Emergency (ER) | payer OTHER, SELFPAY ==
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
[2025-07-28 13:21] VITALS: BP 120/80; PULSE 88; O2SAT 95
[2025-07-28 13:26] VITALS: BP 110/65; PULSE 105; RESP 16; TEMP 36.9; O2SAT 96; BMI 28.0
--- NOTE | 2025-07-28 13:30 | ECG_ITS ---
Test Reason : ams Blood Pressure : */* mmHG Vent. Rate : 97 BPM Atrial Rate : 97 BPM P-R Int : 138 ms QRS Dur : 86 ms QT Int : 344 ms P-R-T Axes : 35 35 19 degrees QTcB Int : 436 ms Normal sinus rhythm Normal ECG When compared with ECG of 21-Jan-2025 11:16, No significant change was found Referred By: Generic ED Physician Electronically Signed By: Sam Fernandes
[2025-07-28 13:52] LABS: Glucose, Whole Blood 225 mg/dL (60-115)
[2025-07-28 13:53] LABS: MANUAL DIFF FLAG NO
[2025-07-28 13:55] LABS: Hematocrit 41.9 % (42.0-52.0); Hemoglobin 15.2 g/dl (14.0-18.0); Imm Gran Abs Auto 0.04 X10*3/uL (0.00-0.03); Imm Gran Pct Auto 0.5 % (0.0-0.4); Lymphocytes Absolute Auto 1.8 X10*3/uL (1.2-4.9); Mean Corpuscular HGB Conc 36.3 g/dl (31.0-36.0); Mean Corpuscular Hemoglobin 31.7 pg (27.0-33.0); Mean Corpuscular Volume 87.3 fL (80.0-98.0); NRBC Abs Auto 0.000 X10*3/uL (0.0-0.012); NRBC Pct Auto 0.0 /100WBC (0.0-0.2); Platelet Count 200 X10*3/uL (160-400); Red Blood Count 4.80 X10*6/uL (4.60-5.80); White Blood Count 7.9 X10*3/uL (4.8-10.8)
[2025-07-28 14:13] LABS: INTERNATIONAL NORM RATIO 1.0 (0.9-1.1); Prothrombin Time 12.0 SEC (10.9-12.4)
--- OUTSIDE RECORDS SUMMARY | 2025-07-28 14:25 | XMS_ITS | Encounter Summary ---
Author Organization [employer] [facility] Address 75 [facility] 7t [place] [address] Care Team Providers Care Orchid Transplanter Name Role Phone Caprice Purdy MD Primary Care Provider + [phone] Dede Castro PharmD Unavailable [phone] BryansGallito Dede PharmD Unavailable [phone] Josué River MD Unavailable [phone] Encounter Details Date Type Department Care Team (Late Contact Info) Description 10/27/2022 Orders Only [facility] MED [facility] PEDS [address] [place], [place] [phone] Svetlana Serna LPN Social History Tobacco Use [...] Department Care Team (Late Contact Info) Description 09/17/2025 10:00 AM EST Medication Management [facility] MEDICINE [address] [place], [place] [phone] BryansLupe Contisa, PharmD [address] [place] [address] documented as of this encounter Visit Diagnoses Not on filedocumented in this encounter Care Teams Orchid Transplanter Relationship Specialty Start Date End Date Caprice Purdy MD [address] [place] [address] PCP - General Family Medicine 10/11/18 Dede Castro, PharmD [address] [place] [address] Pharmacist Internal Medicine 10/08/22 08/19/23 Dede Castro, PharmD [address] [place] [address] Pharmacist Internal Medicine 08/20/23 Josué River MD [address] [place] [address] [address] [place] [address] Endocrinology 10/24/24 documented as of this encounter
--- OUTSIDE RECORDS SUMMARY | 2025-07-28 14:25 | XMS_ITS | Encounter Summary ---
Author Organization [employer] [facility] Address [address] [facility] 7t [place] [address] Care Team Providers Care Clothing Worker Name Role Phone Caprice Purdy MD Primary Care Provider + [phone] Dede Castro PharmD Unavailable [phone] BryansaGllito Dede PharmD Unavailable [phone] Josué River MD Unavailable [phone] Encounter Details Date Type Department Care Team (Late Contact Info) Description 10/07/2022 Orders Only [facility] MED [facility] PEDS [address] [place], [place] [phone] Svetlana Serna LPN Social History Tobacco Use [...] Description 09/17/2025 10:00 AM EST Medication Management [facility] MEDICINE [address] [place], [place] [phone] BryansLupe Contisa, PharmD [address] [place] [address] documented as of this encounter Visit Diagnoses Not on filedocumented in this encounter Care Teams Clothing Worker Relationship Specialty Start Date End Date Caprice Purdy MD [address] [place] [address] PCP - General Family Medicine 10/11/18 Dede Castro, PharmD [address] [place] [address] Pharmacist Internal Medicine 10/08/22 08/19/23 Dede Castro, PharmD [address] [place] [address] Pharmacist Internal Medicine 08/20/23 Josué River MD [address] [place] [address] [address] [place] [address] Endocrinology 10/24/24 documented as of this encounter
--- OUTSIDE RECORDS SUMMARY | 2025-07-28 14:25 | XMS_ITS | Encounter Summary ---
Author Organization [facility] Address 75 [facility] 7t [place] [address] Care Team Providers Care Superintendent Schools Name Role Phone Caprice Purdy MD Primary Care Provider +- [phone] Dede Castro PharmD Unavailable [phone] Dede Castro PharmD Unavailable [phone] Josué River MD Unavailable [phone] Encounter Details Date Type Department Care Team (Late st Contact Info) Description 12/21/2022 Orders Only [facility] MEDICINE [address] [place] [address] Caprice Purdy MD [address] [place] [address] Recurrent pancreatitis (Primary Dx) Social History Tobacco [...] Care Team (Late st Contact Info) Description 09/17/2025 10:00 AM EST Medication Management [facility] MEDICINE [address] [place] [address] Dede Castro PharmD [address] [place] [address] documented as of this encounter Goals Goal Patient Goal Type Associated Problems Recent Progress Patient-Stated? Author Blood Pressure < 140/90 Blood Pressure 136/70( 025 9:59 AM EDT) No Dede Greenfield PharmD documented as of this encounter Visit Diagnoses Diagnosis Recurrent pancreatitis- Primary Chronic pancreatitis documented in this encounter Additional Health Concerns Assessment Noted Time PHQ-9 Depression Total Score: 0 11/25/19 23 9:39 AM EST documented as of this encounter Care Teams Superintendent Schools Relationship Specialty Start Date End Date Caprice Purdy MD [address] [place] [address] PCP - General Family Medicine 10/11/18 Dede Castro PharmD [address] [place] [address] Pharmacist Internal Medicine 10/08/22 08/19/23 Dede Castro PharmD [address] [place] [address] Pharmacist Internal Medicine 08/20/23 Josué River MD [address] [place] [address] Drive [address] [place] [address] Endocrinology 10/24/24 documented as of this encounter
--- OUTSIDE RECORDS SUMMARY | 2025-07-28 14:25 | XMS_ITS | Encounter Summary ---
Author Organization [facility] Address [address] [place] [address] [address]t [place] [address] Care Team Providers Care Header Machine Operator Name Role Phone Caprice Purdy MD Primary Care Provider Dede Castro PharmD Unavailable [phone] Dede Castro PharmD Unavailable [phone] Josué River MD Unavailable [phone] Reason for Visit * Reason Comments Med Refill Encounter Details Date Type Department Care Team (Late st Contact Info) Description 03/15/2023 Refill [facility] [address] [place] [address] Dede Castro, PharmD [address] [place] [address] Hypertension, essential; Familial hypertriglyceridemia; Type 2 diabetes mellitus without complication, without long-term current use of insulin ([facility]); Dyslipidemia Social History Tobacco Use Types [...] Description 09/17/2025 10:00 AM EST Medication Management [facility] [address] [place] [address] Dede Castro PharmD [address] [place] [address] documented as of this encounter Goals Goal [...] documented as of this encounter Care Teams Header Machine Operator Relationship Specialty Start Date End Date Caprice Purdy MD [address] [place] [address] PCP - General Family Medicine 10/11/18 Dede Castro PharmD [address] [place] [address] Pharmacist Internal Medicine 10/08/22 08/19/23 Dede Castro PharmD [address] [place] [address] Pharmacist Internal Medicine 08/20/23 Josué River MD [address] [place] [address] Endocrinology 10/24/24 documented as of this encounter
--- OUTSIDE RECORDS SUMMARY | 2025-07-28 14:25 | XMS_ITS | Encounter Summary ---
Author Organization [facility] Address [address] [facility] [address] 7t [place] [address] Care Team Providers Care Glass Etcher Name Role Phone Caprice Purdy MD Primary Care Provider Dede Castro PharmD Unavailable [phone] BryansGallito Dede PharmD Unavailable [phone] Josué River MD Unavailable [phone] Reason for Visit * Reason Comments Med Refill Encounter Details Date Type Department Care Team (Late st Contact Info) Description 10/07/[address] [facility] [address] [place] [address] BryansDede Conti, PharmD [address] [place] [address] Hypertension, essential Social History Tobacco Use Types [...] Description 09/17/2025 10:00 AM EST Medication Management [facility] [address] [place] [address] Dede Castro, PharmD [address] [place] [address] documented as of this encounter Visit Diagnoses Diagnosis Hypertension, essential Unspecified essential hypertension documented in this encounter Care Teams Glass Etcher Relationship Specialty Start Date End Date Caprice Purdy MD [address] [place] [address] PCP - General Family Medicine 10/11/18 Dede Castro PharmD [address] [place] [address] Pharmacist Internal Medicine 10/08/22 08/19/23 Dede Castro PharmD [address] [place] [address] Pharmacist Internal Medicine 08/20/23 Josué River MD [address] [place] [address] Endocrinology 10/24/24 documented as of this encounter
--- OUTSIDE RECORDS SUMMARY | 2025-07-28 14:26 | XMS_ITS | Encounter Summary ---
Author Organization [facility] Address [address] [facility] [address] 7t [place] [address] Care Team Providers Care Nat Instructor Name Role Phone Caprice Purdy MD Primary Care Provider [phone] Dede Castro PharmD Unavailable [phone] Dede Castro PharmD Unavailable [phone] Josué River MD Unavailable [phone] Encounter Details Date Type Department Care Team (Late st Contact Info) Description 05/18/2023 Abstract [facility] [address] [place] [address] Caprice Purdy MD [address] [place] [address] Social History Tobacco Use Types Packs/Day Years [...] Description 09/17/2025 10:00 AM EST Medication Management [facility] [address] [place] [address] Dede Castro PharmD [address] [place] [address] documented as of this encounter Goals Goal [...] documented as of this encounter Care Teams Nat Instructor Relationship Specialty Start Date End Date Caprice Purdy MD [address] [place] [address] PCP - General Family Medicine 10/11/18 Dede Castro PharmD [address] [place] [address] Pharmacist Internal Medicine 10/08/22 08/19/23 Dede Castro PharmD [address] [place] [address] Pharmacist Internal Medicine 08/20/23 Josué River MD [address] [place] [address] Endocrinology 10/24/24 documented as of this encounter
--- OUTSIDE RECORDS SUMMARY | 2025-07-28 14:26 | XMS_ITS | Data Portability ---
Author Organization 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 Name Role Phone Unavailable Referring Provider VELVET PAYNE Primary Care Provider HIM CCA OTHER Assessment Encounter Date Assessment Date [...] Available Not Available No t Available [employer] Yale Lite kit USE TO TEST BLOOD SUGAR [...] /min 97 % 97 % 162.56 cm 22477.6 g 97.6 [degF] 137/89 mm[Hg] Not Available [employer] - production 4 11:36:44 Date Recorded Respiratory [...] Diagnosis SNOMED-CT Code Diagnosis ICD10 Code Diagnosis IMO Codes Diagnosis Note [id number] Jacklyn Lee MD Main - [facility]ED [address] [place] [phone] 12/18/2022 17:53:32 12/21/2022 10:48:12 Acute pancreatitis 867702027 K85.90 [id number] Alex Almeida MD Main - [address] [phone] 12/13/2023 11:36:28 12/13/2023 18:56:25 Peripheral venous insufficiency [id number] I87.2 This 42-year-ol d male with new [...] Jackson Member ID Guarantor Name 10/16/2024 1 [facility] - DOS PRIOR TO 2023 - DUAL ELIGIBLE (MEDICARE REPLACEMENT/ADV ANTAGE - HMO) Ruy Valencia [id number] Ruy Valencia 04/25/2025 1 [facility] - DOS ON OR AFTER 2023 - DUAL ELIGIBLE - [facility] OPTIONS AND ONE CARE (MEDICARE REPLACEMENT/ADV ANTAGE - HMO) Ruy Valencia [id number] Ruy Valencia Notes Date Note Type Note [...] ................... ................... ................... ................... ................... ................... ........ Car Dryer Note From Richa Kim: Community Car Dryer Ned Kim [id number] dispatched to a [facility] for a 41 yom C/O pancreatitis. Upon arrival, the pt was sitting on the couch, awake and alert, oriented to baseline w/ a TBI, in obvious pain. Family/staking engineer on scene stated that the pt [...] stated his pain was 7/10 w/ oxycodone. [facility] was consulted; pt and staking engineer/family were informed of the causes and treatment of pancreatitis, and that IV pain mgmt was recommended. Pt and staking engineer were offered IV fluids in the home, but declined, stating that they were going to the ED [facility]. Pt and family were educated and red flags were discussed. ................... ................... ................... ................... ................... ................... ................... ........ Disposition: Gracy Lee MD [address] [place] [address],[address] [facility], [place], [phone], [employer] 12/18/2022 22:33:18 12/13/2023 text/html ROS as noted in the HPI HPI: History of TBI, Auditory hallucinations, memory impairment, smoker, pancreatitis, alcohol use. Patient noted last night with discoloration of all toenail beds. Now only great toes dusky. No acute pain. BG this morning 265 per patient. ................... ................... ................... ................... ................... ................... ................... ........ CRC Nurse Triage Notes (Isaura Lanza): Comments: CRC RN DID NOT NEED FURTHER INFO Alex Almeida MD [address] [facility],[address], [place], [address], [employer] 12/13/2023 11:43:29
--- OUTSIDE RECORDS SUMMARY | 2025-07-28 14:26 | XMS_ITS | Clinical Summary ---
Author Organization [employer] Address [address] [facility] [address] [place] [address] Care Team Providers Care Automobile Damage Appraiser Name Role Phone Caprice Purdy MD Primary Care Provider [phone]- [phone] Dede Castro PharmD Unavailable [phone] Josué River MD Unavailable [phone] Allergies No known active allergies Medications * This document contains information received from the source organization and may not represent a complete record from that organization. metFORMIN XR (Glucophage-XR) 500 MG 24 hr tabletIndications:Type 2 diabetes mellitus with hyperglycemia, with long-term current use of insulin (HCC) Take 500 mg by mouth 2 times daily. Do not crush, chew, or split. Active Icosapent Ethyl (Vascepa) 1 g capsuleIndications:Fam [...] AT BEDTIME 90 tablet 3 2024 Active glucose 4 g chewable tablet CHEW 4 TABLETS EVERY 15 MINUTES NEEDED FOR HYPOGLYCEMIA DO NOT EXCEED 16 TABLETS IN 24 HOURS 2024 Active insulin aspart FlexPen (NovoLOG) 100 UNIT/ML pen INJECT 20 UNITS SUBCUTANEOUSLY BEFORE BREAKFAST AND 18 UNITS BEFORE LUNCH 2024 Active amLODIPine (Norvasc) 5 MG tabletIndications:Esse [...] hyperglycemia, with long-term current use of insulin ([facility]) TEST BLOOD SUGAR TWICE DAILY 100 each 2024 Active lisinopril 30 MG tabletIndications:Esse ntial hypertension Take 1 tablet (30 mg) by mouth Once per day. 90 tablet 2024 Active Alcohol Swabs (Alcohol Prep) 70 % padsIndications:Type 2 diabetes mellitus with hyperglycemia ([facility]) USE TEST BLOOD SUGAR TWICE DAILY 100 each 5 2024 Active Toujeo Max SoloStar 300 UNIT/ML injection INJECT 50 UNITS SUBCUTANEOUSLY EVERY DAY 2024 Active Continuous Glucose Sensor (Dexcom G7 Sensor) [facility] Active FLUoxetine (PROzac) 20 MG capsuleIndications:Rachel rent moderate episode of major depressive disorder without prior episode (CMS/HCC) ([facility]) TAKE 1 CAPSULE BY MOUTH EVERY MORNING 90 capsule 2024 Active Embecta Pen Needle Ultrafine 31G X 5 MM miscIndications:Type 2 diabetes mellitus with hyperglycemia, with long-term current use of insulin ([facility]) USE FOUR TIMES DAILY 100 each 11 2024 Active insulin pen needle (Sure Comfort Pen [place]) 31G x 5 mm miscIndications:Type 2 diabetes mellitus with hyperglycemia, with long-term current use of insulin ([facility]) USE FOUR TIMES DAILY WITH INSULIN 100 each 11 07/26 Discontinued Alcohol Swabs (Alcohol Prep) 70 % pads USE DIRECTED TO TEST BLOOD SUGAR 07/16 Discontinued FLUoxetine (PROzac) 20 MG capsuleIndications:Cur rent moderate episode of major depressive disorder without prior episode (CMS/HCC) (HCC) TAKE 1 CAPSULE BY MOUTH EVERY MORNING 90 capsule 07/19 Discontinued Lantus SoloStar 100 UNIT/ML pen INJECT 42 UNITS SUBCUTANEOUSLY AT BEDTIME 07/17 Discontinued( Med list cleanup (will not trigger notification to Pharmacy)) FreeStyle Precision Ren Test test stripIndications:Type 2 diabetes mellitus with hyperglycemia (HCC) TEST BLOOD SUGAR EVERY 8 HOURS DIRECTED 100 strip 11 07/17 Discontinued( Other) Active Problems Patient Care Coordination No te Formatting of this note migh t be different from the original. Enrolled in [facility] HTN clinic with Dede Castro, TysonD, [facility]. Followed by Dr River endocrinology as of 08/18/23 [facility] Barrel Raiser: Elina Physical Medicine Specialist Agency: [employer] [facility] Problem Noted Date Diagnosed Date Severe dental [...] [facility] -Today stable, controlled. Denies suicidial or [...] [facility] out[facility] -Today stable, controlled. Denies suicidial or [...] Overview (01/22/2025): Hx multiple bouts of pancreatitis [id number], 12/2023, 04/11/24, 04/19/24, 10/16/24, 01/21/25 likely from EtOH in setting severe of hypertriglyceridemia. -CT 04/11/24 and 10/16/24 abdomen pelvis w IV conFindings consistent with acute pancreatitis. No evidence of pancreatic necrosis or drainable fluid collection. -followed by Dr. River dinkey mechanic -admissions 04/14/24 and 04/19/24. Acute pancreatitis due to hypertriglyceridemia. Initially admitted to the ICU for insulin drip and started on Lopid. Triglyceride levels decreasing from 2430 to 524. Lipase trended down. He reports that he was taking his fenofibrate daily as scheduled, will stop and replace with gemfibrozil during hospital stay. -admissions 04/14/24 Acute pancreatitis due to hypertriglyceridemia. -presented to [facility] ED 10/16/24, admitted till 10/18/24 for [...] AM EDT): Hx multiple bouts of pancreatitis [id number], 12/2023, 04/11/24, 04/19/24, 10/16/24, 01/21/25 likely from EtOH in setting severe of hypertriglyceridemia. -CT 04/11/24 and 10/16/24 abdomen pelvis w IV conFindings consistent with acute pancreatitis. No evidence of pancreatic necrosis or drainable fluid collection. -followed by Dr. River dinkey mechanic -admissions 04/14/24 and 04/19/24. Acute pancreatitis due to hypertriglyceridemia. Initially admitted to the ICU for insulin drip and started on Lopid. Triglyceride levels decreasing from 2430 to 524. Lipase trended down. He reports that he was taking his fenofibrate daily as scheduled, will stop and replace with gemfibrozil during hospital stay. -admissions 04/14/24 Acute pancreatitis due to hypertriglyceridemia. -presented to [facility] ED 10/16/24, admitted till 10/18/24 for [...] PM EST): Hx multiple bouts of pancreatitis [id number], 12/2023, 04/11/24, 04/19/24., 10/16/24 likely from EtOH in setting severe of hypertriglyceridemia. -CT 04/11/24 and 10/16/24 abdomen pelvis w IV conFindings consistent with acute pancreatitis. No evidence of pancreatic necrosis or drainable fluid collection. -followed by Dr. River dinkey mechanic -admissions 04/14/24 and 04/19/24. Acute pancreatitis due to hypertriglyceridemia. Initially admitted to the ICU for insulin drip and started on Lopid. Triglyceride levels decreasing from 2430 to 524. Lipase trended down. He reports that he was taking his fenofibrate daily as scheduled, will stop and replace with gemfibrozil during hospital stay. -admissions 04/14/24 Acute pancreatitis due to hypertriglyceridemia. -presented to [facility] ED 10/16/24, admitted till 10/18/24 for evaluation of upper abdominal pain, nausea and vomiting. BG found to be 406 mg/dl and triglycerides 1250 mg/dl. CT abdomen/pelvis showed acute pancreatitis. Admitted to ICU and started on aggressive IVF and insulin drip with down trending triglycerides to 480. Abdominal pain resolved. Assessment & Plan (05/17/2024 10:30 AM EDT): Hx multiple bouts of pancreatitis [id number], 12/2023, 04/11/24, 04/19/24 likely from EtOH in setting severe of hypertriglyceridemia. -CT 04/11/24 abdomen pelvis w IV conFindings consistent with acute pancreatitis. No evidence of pancreatic necrosis or drainable fluid collection. -followed by Dr. River dinkey mechanic -admissions 04/14/24 and 04/19/24. Acute pancreatitis due [...] hypertriglyceridemia. -he refuses [facility] for Support and Recovery referral Assessment & Plan (01/17/2024 11:20 AM EDT): Hx multiple bouts of pancreatitis most recents 08/2023 and 12/2023 likely from EtOH in setting severe of hypertriglyceridemia. -followed by Dr. River dinkey mechanic Assessment & Plan (08/25/2023 9:12 AM EST): Hx multiple bouts of pancreatitis most recent 08/2023 likely from EtOH in setting severe of hypertriglyceridemia. -followed by Dr. River dinkey mechanic Assessment & Plan (06/16/2023 12:42 PM EDT): [...] -lost care -referred as STAT and requested music specialist to Try to get an early [...] due after 10/25/25 -eye care facilitated by [facility], last apt 11/15/23 -dental home is Family [...] due after 08/25/2024 -eye care facilitated by [facility], last apt 11/15/23 -dental home is [...] disorder and alcohol use disorder admitted to [facility] 02/24/2022-03/06/2022 for command auditory hallucinations. -follow [...] disorder and alcohol use disorder admitted to [facility] 02/24/2022-03/06/2022 for command auditory hallucinations. -follow [...] disorder and alcohol use disorder admitted to [facility] 02/24/2022-03/06/2022 for command auditory hallucinations. -follow [...] disorder and alcohol use disorder admitted to [facility] 02/24/2022-03/06/2022 for command auditory hallucinations. -follow up with Dr. Lisbeth sanon MD -continue fluoxetine 20mg po daily -He did not f/u with Dr. Bob and refuses psychiatric care. -Mom advised to call 911 if she fears for her safety and Pt understands this plan. 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 River Lab Results Component Value Date [...] levels decrease and pain resolves. Follows with [facility] Endocr[facility]. -last seen 02/09/25 no med changes. 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 River Lab Results Component Value Date [...] levels decrease and pain resolves. Follows with [facility] Endocr[facility]. -last seen 02/09/25 no med changes. Assessment & Plan (10/25/2024 3:41 PM EST): Likely familial hyperuricacidemia, followed by dinkey mechanic, Dr. River Lab Results Component Value Date [...] with gemfibrozil. -Has appt. with Dr. River, dinkey mechanic 05/2024 Assessment & Plan (05/17/2024 10:25 AM EDT): Likely familial hyperuricacidemia, followed by dinkey mechanic, Dr. River Lab Results Component Value Date [...] with gemfibrozil. -Has appt. with Dr. River, dinkey mechanic 05/2024 Assessment & Plan (01/17/2024 11:18 AM EDT): Likely familial hyperuricacidemia, followed by Dr. River dinkey mechanic Lab Results Component Value Date CHOLESTEROL 142 [...] Likely familial hyperuricacidemia, followed by Dr. River dinkey mechanic Lab Results Component Value Date CHOLESTEROL 142 [...] 3:09 PM EDT): From chart review from [facility] ' notes pt used to f w dinkey mechanic Dr. Calabrese,Labs on 11/05/2020 show an LDL [...] 134 daily -continue atorvastatin 80 daily -continue [place] 3 2 gram bid -followed by endocrinology, [...] as pharmacomtherapy, [facility], and [facility] pharmacy smoking cessation clinic Discussed USPSTF [...] as pharmacomtherapy, [facility] smoking [facility], and [facility] pharmacy smoking cessation clinic Discussed USPSTF [...] as pharmacomtherapy, [facility] smoking cessation group, and [facility] pharmacy smoking cessation clinic Discussed USPSTF [...] as pharmacomtherapy, [facility] smoking [facility], and [facility] pharmacy smoking cessation clinic Discussed USPSTF [...] (06/19/2025): Diabetes is not controlled. Followed by [facility] endocrine, Dr. River since 08/19/2023. Doing much better with dinkey mechanic and sister involved. Education for insulin pump [...] ayad per endo note 02/06/24 -note from Senior Product Analyst, Dr. Josué River 06/15/25 reviewed. Being evaluated [...] EDT): Diabetes is not controlled. Followed by [facility] endocrine, Dr. River since 08/19/2023. Doing much better with dinkey mechanic and sister involved. Education for insulin pump [...] ayad per endo note 02/06/24 -note from Senior Product Analyst, Dr. Josué River 03/15/24 reviewed. Being [...] EST): Diabetes is not controlled. Followed by [facility] endocrine, Dr. River since 08/19/2023. Doing much better with dinkey mechanic and sister involved. Education for insulin pump [...] before breakfast to avoid hypoglycemia 02/23/24 via dinkey mechanic, Dr River -Lantus 40 unidades ayad per endo note 02/06/24 -note from Senior Product Analyst, Dr. Josué River 03/15/24 reviewed. Being evaluated for insulin pump. -admissions 04/14/24 Acute pancreatitis due to hypertriglyceridemia. Initially admitted to the ICU for insulin drip and started on Lopid. -has appt. to get insulin pump placed 11/09/24 Assessment & Plan (05/17/2024 10:27 AM EDT): DDiabetes is not controlled. Followed by [facility] endocrine, Dr. River since 08/19/2023. Doing much better with dinkey mechanic and sister involved. Education for insulin pump [...] before breakfast to avoid hypoglycemia 02/23/24 via dinkey mechanic, Dr River -Lantus 40 unidades ayad per endo note 02/06/24 -note from Senior Product Analyst, Dr. Josué River 03/15/24 reviewed. Being evaluated for insulin pump. -admissions 04/14/24 Acute pancreatitis due to hypertriglyceridemia. Initially admitted to the ICU for insulin drip and started on Lopid. Assessment & Plan (01/17/2024 11:19 AM EDT): Diabetes is not controlled. Followed by [facility] endo since 08/19/2023. Doing much better [...] is not controlled.Seen as new pt at [facility] endo 08/19/2023, note requested. Doing much [...] Collaborative Drug Therapy Managment Program with our PharmUSHA Quiroz 03/01/25 Assessment & Plan (03/01/2025 9:32 AM EDT): -Dx based on 2 BP > 140/90. -Today, BP slightly elevated, will continue to monitor at home and follow-up with [facility] -continue lisinopril 20mg daily -continue amlodipine 5mg daily -referred to Collaborative Drug Therapy Managment Program with our USHA Benson 03/01/25 Assessment & Plan (10/25/2024 3:31 PM [...] major depressive disorder without prior episode (CMS/HCC) 09/16/2012 Overview (05/17/2024): Denies suicidial or homacidial [...] trigger. Patient would benefit from AUD program, job coach/job developer, and OP therapy referral; he declined services. [...] from sister PLAN: 1. Follow up with [facility]: Not recommended for follow-up 2. Patient goal is to stop drinking alcohol 3. Behavioral Recommendations a. Patient may request to be connected to [facility] at any time b. Patient [...] Encounters Date Type Department Care Team Description 07/26/2025 Refill [facility] [address] [place] [address] Caprice Purdy MD Type 2 diabetes mellitus with hyperglycemia, with long-term current use of insulin ([facility]) 07/19/2025 Refill [facility] [address], [place] [phone] Alessandra Omer MD Current moderate episode of major depressive disorder without prior episode ([facility]) ([facility]) 07/17/2025 Travel 07/16/2025 Refill [facility] [address], [place] [phone] Caprice Purdy MD Type 2 diabetes mellitus with hyperglycemia ([facility]) 07/13/2025 Orders Only GENERIC EXTERNAL DATA DEPARTMENT Provider, Generic External Data 07/02/2025 Telephone [facility] [address] [place] [address] [phone] Caprice Purdy MD 06/28/2025 Refill [facility] [address], [place] [phone] Caprice Purdy MD Type 2 diabetes mellitus with hyperglycemia ([facility]) 06/15/2025 Orders Only GENERIC EXTERNAL DATA DEPARTMENT Provider, Generic External Data 06/06/2025 Orders Only GENERIC EXTERNAL DATA DEPARTMENT Provider, Generic External Data 05/30/2025 Travel 05/24/2025 Refill [facility] [address], [place] [phone] Caprice Purdy MD Familial hypertriglyceridemia; Type 2 diabetes mellitus with hyperglycemia, with long-term current use of insulin ([facility]) 05/23/2025 Refill [facility] [address] [place] [address] Caprice Purdy MD Alcohol abuse 05/22/2025 Telephone [facility] [address], [place] [phone] Caprice Purdy MD Appointment Request 05/20/2025 Refill [facility] [address] [place] [address] Caprice Purdy MD Essential hypertension 04/30/2025 Orders Only GENERIC EXTERNAL DATA DEPARTMENT Provider, Generic External Data 04/27/2025 Refill [facility] [address] [place] [address] Caprice Purdy MD Current moderate episode of major depressive disorder without prior episode ([facility]) from Last 3 Months Immunizations Immunization Administration Dates Next Due Hep A, Adult 08/06/2009,07/26/2008 Hep B, adult 08/06/2009,09/27/2008,07/26/2008 Influenza Injectable Quadriv alant Preservative Free IIV4 MDCK 08/18/2023,07/06/2022 Influenza injectable quadriv alent IIV4 with preservative 09/09/2017,08/28/2015 Influenza injectable quadriv alent preservative free 09/30/2020,07/10/2019,09/12/2018,2015 Influenza, IIV3, injectable 10/25/2024,1 10/18/2022,07/06/2022,2019,07/10/2019,09/12/2018,09/09/2017,1 ,08/28/2015,06/25/2009, 008 Influenza, Split (incl. jordan fied surface antigen) 09/16/2012 Influenza, seasonal, injecta ble, preservative free 07/17/2025,10/25/2024 Faviola SARS-CoV-2 Vaccination 12/25/2020 Pfizer Covid-19 Vaccine 12+ 10/25/2024 Pfizer Covid-19 Vaccine 12+ Bivalent 10/02/2022 Pneumococcal Conjugate PCV 20 11/25/2022 TD (adult), 2 Lf tetanus tox oid, preservative free, adsorbed 06/29/2006 Td (adult), unspecified 06/29/2006 Tdap 05/17/2024,03/07/2014 Family History Relation Name Status Comments Mother Noiela Sister Mohamud Social History Tobacco Use Types [...] Sign Reading Time Taken Comments Blood Pressure 136/70 07/17/2025 9:59 AM EDT Pulse 100 07/17/2025 9:59 AM EDT Temperature 37.2 C (98.9 F) [...] Description 09/17/2025 10:00 AM EST Medication Management [facility] [address] [place] [phone] Dede Castro, PharmD [address] [place], [place] [phone] Health Maintenance Due Date Last Done Comments Dental Oral Exam 1980 Dental Prophylaxis 1980 Dental X-Ray: Bitewings 1980 HPV Vaccines (1 - Male 3-dose series) 12/24/1995 Diabetes: Hemoglobin A1C 09/06/2025 025, 03/01/2025, 10/25/2024, [...] Completed 10/25/2024, , 12/25/2020 Influenza Vaccine Completed 07/17/2025, , 10/25/2024, Additional history exists HIB Vaccines Aged Out [...] Author Blood Pressure < 140/90 Blood Pressure 136/70(2024 9:59 AM EDT) No Dede Greenfield PharmD Hemoglobin [...] WHOLE BLOOD Routine 04/30/2025 8:26 AM EDT LIPID PANEL, STANDARD Routine 02/12/2025 9:30 [...] of3 resultswithin the time period is included. Glucose, Whole Blood 235(H) 60 - 115 mg/dL [facility] Comment:METER #: [id number] 0Testing performed in the Endocrinology Department [address] , [address], [facility]. 07/13/2025 10:1 0 AM EDT 07/13/2025 10:15 AM EDT us Generic External Data Provider LAB BLOOD ORDERAB LES Final Result [facility] [address] [place] [phone] * (ABNORMAL) CBC (06/06/2025 9:42 AM EDT) White Blood Count 6.2 4.8 - 10.8 X10*3/uL [facility] Red Blood Count 4.85 4.60 - 5.80 X10*6/uL [facility] Hemoglobin 15.2 14.0 - 18.0 g/dl [facility] Hematocrit 43.5 42.0 - 52.0 % [facility] Mean Corpuscular Volume 89.7 80.0 - 98.0 fL [facility] Mean Corpuscular Hemoglobin 31.3 27.0 - 33.0 pg [facility] Mean Corpuscular HGB Conc 34.9 31.0 - 36.0 g/dl [facility] Red Cell Distribution Width 12.1 11.0 - 16.0 % [facility] Platelet Count 194 160 - 400 X10*3/uL [facility] Mean Platelet Volume 9.3(L) 9.4 - 12.4 fL [facility] NRBC Pct Auto 0.0 0.0 - 0.2 /100WBC [facility] NRBC Abs Auto 0.000 0.0 - 0.012 X10*3/uL [facility] 06/06/2025 9:42 AM EDT 06/06/2025 9:42 AM EDT us Generic External Data Provider LAB BLOOD ORDERAB LES Final Result Performing Organization Address City/State/[facility] Co de Phone Number [facility] [address] [place] [phone] * (ABNORMAL) Hemoglobin A1c (06/06/2025 9:42 AM EDT) Hemoglobin A1c 7.8(H) <6.0 % [facility] Comment:Hemoglobin A1C Refer ence Range Adults: 4.8 - 6.0 % Non diabetic: < 6.0 % Goal: < 7.0 %Additional Action Suggested: > 8.0 %Note: Hemoglobin A1c results are invalid for patients with abnormal amounts of HbF. Blood transfusions may impact the HbA1c concentration in the patient sample. Estimated Average Glucose 177 mg/dL [facility] Comment:eAG = Estimated ave rage glucose which is %A1C expressed asaverage glucose, using the formula of the G0F-FfwhwznYmrkthc Glucose study (ADAG), Diabetes Care, Vol.31,#8,2007 06/06/2025 9:42 AM EDT 06/06/2025 9:42 AM EDT Generic External Data Provider LAB BLOOD ORDERAB LES Final Result Performing Organization Address [facility] Co de Phone Number [facility] [address] [place] [phone] * Albumin, Random Urine W/Creatinine (06/06/2025 9:35 AM EDT) Creatinine, Urine 347.73 mg/dL [facility] Microalbumin Urine 47.0 mg/L [facility] Microalbum Creatinine Ratio Ur 13.5 <30 ug/mg cr [facility] Comment:Albumin/Creatinine R atio Reference Ranges: Normal: < 30 ug/mg creatinine Microalbuminuria: 30 - 300 ug/mg creatinineClinical Albuminuria: > 300 ug/mg creatinine 06/06/2025 9:35 AM EDT 06/06/2025 10:33 AM EDT Generic External Data Provider LAB URINE ORDERAB LES Final Result Performing Organization Address [facility] Co de Phone Number [facility] [address] [place] [phone] * (ABNORMAL) Lipid Panel, Standard (02/12/2025 9:30 AM EDT) Triglycerides 1,084(H) <150 mg/dL [facility] Comment:Desirable Triglyceri de: less than 150 mg/dLBorderline High Triglyceride 150-199 mg/dLHigh Triglyceride: 200-499 mg/dLVery High Triglyceride: greater than or equal to 5OO mg/dL Cholesterol 237(H) <200 mg/dL [facility] Comment:Desirable Cholestero l: less than 200 mg/dLBorderline High Cholesterol: 200-239 mg/dLHigh Cholesterol: greater than 239 mg/dL LDL Cholesterol Calculated TNP <100 mg/dL [facility] Comment:Unable to calculate the LDL. The formula of Friedwald,Rosas, and Tano is only valid if the triglycerides areless than 400 mg/dl. HDL Cholesterol 32(L) >40 mg/dL [facility] Comment:Desirable HDL: great er than 40 mg/dL Note: This HDL assay may give artificially low results in patients with liver disease. 02/12/2025 9:30 AM EDT 02/12/2025 9:30 AM EDT Generic External Data Provider LAB BLOOD ORDERAB LES Final Result [facility] [address] [place] [phone] * Diabetes Eye Exam (11/15/2023) Eye [...] Most Recently Relevant to Health Maintenance Insurance [facility] Care Teams Automobile Damage Appraiser Relationship Specialty Start Date End Date Gurwinder, MD Caprice [address] [place] [address] PCP - General Family Medicine 10/11/18 Dede Castro, PharmD [address] [place] [phone] Pharmacist Internal Medicine 08/20/23 Josué River MD [address] [place] [address] [place] [phone] Endocrinology 10/24/24
--- OUTSIDE RECORDS SUMMARY | 2025-07-28 14:26 | XMS_ITS | Encounter Summary ---
Author Organization [employer] Address [address] [facility] 7t [place] [address] Care Team Providers Care Slot Attendant Name Role Phone Caprice Purdy MD Primary Care Provider +- [phone] Dede Castro PharmD Unavailable Josué River MD Unavailable [phone] Reason for Visit * Reason Onset Date Comments Med Refill 07/25/2024 Encounter Details Date Type Department Care Team (Late st Contact Info) Description 07/25/2024 Telephone [facility] [address] [place], [place] [phone] Caprice Purdy MD [address] [place], [place] [phone] Med Refill Social History Tobacco Use Types [...] (NOVOLOG FLEXPEN SC) To be sent to: [facility] - [place], [place] - [address] [facility] documented in this encounter Plan of Treatment Upcoming Encounters Date Type Department Care Team (Late st Contact Info) Description 09/17/2025 10:00 AM EST Medication Management [facility] [address] [place] [address] Dede Castro, PharmD [address] [place] [address] documented as of this encounter Goals Goal Patient Goal Type Associated Problems Recent Progress Patient-Stated? Author Blood Pressure < 140/90 Blood Pressure 136/70(10/07/ 2025 9:59 AM EDT) No Dede Greenfield PharmD Hemoglobin A1c < 7 Result Component 7.8( 9:42 AM EDT) No Dede Greenfield PharmD documented as of this encounter Visit Diagnoses Not on filedocumented in this encounter Additional Health Concerns Assessment Noted Time PHQ-9 Depression Total Score: 6 05/18/20 23 9:36 AM EDT documented as of this encounter Care Teams Slot Attendant Relationship Specialty Start Date End Date Caprice Purdy MD [address] [place] [address] PCP - General Family Medicine 10/11/18 Dede Castro PharmD [address] [place] [address] Pharmacist Internal Medicine 08/20/23 Josué River MD [address] [place] [address] Drive [address] [place] [address] Endocrinology 10/24/24 documented as of this encounter
--- OUTSIDE RECORDS SUMMARY | 2025-07-28 14:26 | XMS_ITS | Encounter Summary ---
Author Organization [employer] Address [address] [facility] 7t [place] [address] Care Team Providers Care Reed Press Feeder Name Role Phone Caprice Purdy MD Primary Care Provider +- [phone] Dede Castro PharmD Unavailable Josué River MD Unavailable [phone] Reason for Visit * Reason Comments Med Refill Encounter Details Date Type Department Care Team (Late st Contact Info) Description 07/26/2025 Refill [facility] [address] [place], [place] [phone] Caprice Purdy MD [address] [place], [place] [phone] Type 2 diabetes mellitus with hyperglycemia, with long-term current use of insulin (HCC) Social History Tobacco Use Types Packs/Day Years [...] 09/17/2025 10:00 AM EST Medication Management [facility] [address] [place] [address] Dede Castro PharmD [address] [place] [address] documented as of this encounter Goals Goal Patient Goal Type Associated Problems Recent Progress Patient-Stated? Author Blood Pressure < 140/90 Blood Pressure 136/70(2024 9:59 AM EDT) No Dede Greenfield, PharmD Hemoglobin A1c < 7 Result Component 7.8( 9:42 AM EDT) No Dede Greenfield, PharmD documented as of this encounter Visit Diagnoses Diagnosis Type 2 diabetes mellitus with hyperglycemia, with long-term current use of insulin (HCC) documented in this encounter Additional Health Concerns Assessment Noted Time PHQ-9 Depression Total Score: 0 10/25/19 25 3:28 PM EST documented as of this encounter Care Teams Reed Press Feeder Relationship Specialty Start Date End Date Caprice Purdy MD [address] [place] [address] PCP - General Family Medicine 10/11/18 Dede Castro, TysonD [address] [place] [address] Pharmacist Internal Medicine 08/20/23 Josué River MD [address] [place] [address] Drive [address] [place] [address] Endocrinology 10/24/24 documented as of this encounter
--- OUTSIDE RECORDS SUMMARY | 2025-07-28 14:26 | XMS_ITS | Encounter Summary ---
Author Organization [facility] Address [address] [place] [address] 7t [place] [address] Care Team Providers Care Data Collection Associate Name Role Phone Caprice Purdy MD Primary Care Provider + [phone] Dede Castro PharmD Unavailable [phone] Lupe Castrosa PharmD Unavailable [phone] Josué River MD Unavailable [phone] Encounter Details Date Type Department Care Team (Late st Contact Info) Description 06/11/2023 Abstract [facility] [address] [place] [phone] Caprice Purdy MD [address] [place] [address] [phone] Social History Tobacco Use Types Packs/Day Years [...] Description 09/17/2025 10:00 AM EST Medication Management [facility] [address] [place] [phone] Dede Castro PharmD [address] [place] [address] documented as of this encounter Goals Goal [...] as of this encounter Care Teams Data Collection Associate Relationship Specialty Start Date End Date Caprice Purdy MD [address] [place] [address] PCP - General Family Medicine 10/11/18 Dede Castro PharmD [address] [place] [address] Pharmacist Internal Medicine 10/08/22 08/19/23 Dede Castro PharmD [address] [place] [phone] Pharmacist Internal Medicine 08/20/23 Josué River MD [address] [place] [address] [address] [place] [id number] Endocrinology 10/24/24 documented as of this encounter
--- OUTSIDE RECORDS SUMMARY | 2025-07-28 14:26 | XMS_ITS | Encounter Summary ---
Author Organization [employer] [facility] Address [address] [place] [address] [address] [place] [address] Care Team Providers Care National Opel[employer] Analyst Name Role Phone Caprice Purdy MD Primary Care Provider + [phone] Dede Castro PharmD Unavailable [phone] Dede Castro PharmD Unavailable [phone] Josué River MD Unavailable [phone] Reason for Visit * Reason Comments Med Refill Encounter Details Date Type Department Care Team (Late st Contact Info) Description 06/16/2023 Refill [facility] [address] [place] [address] [phone] Alessandra Tovar MD [address] [place], [place] [phone] Social History Tobacco Use Types Packs/Day Years [...] Description 09/17/2025 10:00 AM EST Medication Management [facility] [address] [place] [phone] Dede Castro PharmD [address] [place] [address] documented as of this encounter Goals Goal Patient Goal Type Associated Problems Recent Progress Patient-Stated? Author Blood Pressure < 140/90 Blood Pressure 136/70(2024 9:59 AM EDT) No Bryans-Lupe Nevarezsa, PharmD Hemoglobin A1c < 7 Result Component 7.8( 9:42 AM EDT) No Dede Greenfield, PharmD documented as of this encounter Visit Diagnoses Not on filedocumented in this encounter Additional Health Concerns Assessment Noted Time PHQ-9 Depression Total Score: 6 05/18/20 23 9:36 AM EDT documented as of this encounter Care Teams National Opel[employer] Analyst Relationship Specialty Start Date End Date Caprice Purdy MD [address] [place] [address] PCP - General Family Medicine 10/11/18 Dede Castro, PharmD [address] [place] [address] Pharmacist Internal Medicine 10/08/22 08/19/23 Dede Castro, PharmD [address] [place] [address] Pharmacist Internal Medicine 08/20/23 Josué River MD [address] [place] [address] Endocrinology 10/24/24 documented as of this encounter
--- OUTSIDE RECORDS SUMMARY | 2025-07-28 14:26 | XMS_ITS | Encounter Summary ---
Author Organization [facility] Address [address] [place] [address] [address] [place] [address] Care Team Providers Care Box Gluer Name Role Phone Caprice Purdy MD Primary Care Provider + [phone] Dede Castro PharmD Unavailable [phone] Dede Castro PharmD Unavailable [phone] Josué River MD Unavailable [phone] Reason for Visit * Reason Comments Med Refill Encounter Details Date Type Department Care Team (Late st Contact Info) Description 06/22/2023 Refill [facility] [address] [place] [phone] Alessandra Tovar MD [address] [place], [place] [phone] Social History Tobacco Use Types Packs/Day Years [...] EST Medication Management [facility] [address] [place] [phone] Dede Castro PharmD [address] [place] [address] documented as of this encounter Goals Goal [...] documented as of this encounter Care Teams Box Gluer Relationship Specialty Start Date End Date Caprice Purdy MD [address] [place] [address] PCP - General Family Medicine 10/11/18 Dede Castro, PharmD [address] [place] [address] Pharmacist Internal Medicine 10/08/22 08/19/23 Dede Castro, PharmD [address] [place] [address] Pharmacist Internal Medicine 08/20/23 Josué River MD [address] [place] [address] Endocrinology 10/24/24 documented as of this encounter
[2025-07-28 14:28] LABS: Troponin-I High Sensitivity < 2.7 ng/L (<3.5-35.0)
[2025-07-28 14:50] VITALS: BP 103/66; PULSE 104; RESP 17; O2SAT 96
[2025-07-28 14:57] LABS: Alanine Aminotransferase 31 U/L (0-40); Albumin Level 4.9 g/dL (3.5-5.0); Alkaline Phosphatase 85 U/L (39-117); Anion Gap 17 (12-20); Aspartate Amino Transferase 21 U/L (5-37); Blood Urea Nitrogen 13 mg/dL (9-16); Calcium 9.4 mg/dL (8.4-10.2); Carbon Dioxide 21 mmol/L (22-29); Chloride 105 mmol/L (96-108); Creatinine Clr Calc Pharmacy 114.3; Estimated Glomerular Filt Rate > 60; Magnesium 2.0 mg/dL (1.6-2.6); Potassium 3.7 mmol/L (3.3-5.1); Sodium 139 mmol/L (135-145); Total Protein 7.4 g/dL (6.5-8.0)
[2025-07-28 16:12] VITALS: BP 97/63; PULSE 101; RESP 12; O2SAT 96
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
[2025-07-28 17:19] LABS: Appearance Urine Clear; Glucose Urine UA 500 mg/dL (Negative); PH 6.0 (5.0-9.0); Specific Gravity - Urine <= 1.005 (1.005-1.025)
[2025-07-28 17:28] LABS: Cannabinoid Screen Urine Not Detected (Not Detect)
[2025-07-28 22:36] VITALS: BP 100/56; PULSE 92; RESP 14; TEMP 36.5; O2SAT 97
[2025-07-29 06:36] VITALS: BP 150/100; PULSE 91; RESP 16; TEMP 36.6; O2SAT 98
[2025-07-29 07:42] LABS: Glucose, Whole Blood 272 mg/dL (60-115)
[2025-07-29 09:14] VITALS: BP 152/99; PULSE 80; RESP 16; TEMP 36.7; O2SAT 95
[2025-07-29] MEDS: Nicotine 21 MG PATCH.TD24 TRANSDERMA (12:26)
[2025-07-29 12:36] VITALS: BP 158/102
[2025-07-29 12:41] VITALS: BP 158/102; PULSE 95; RESP 16; TEMP 36.7; O2SAT 95
[2025-07-29 14:39] VITALS: BP 148/100; PULSE 85; RESP 18; TEMP 36.8; O2SAT 96
--- NOTE | 2025-07-29 14:40 | PC.NURSE ---
Per RHONDA salazar to d/c pt with BP 148/100, asymptomatic.
[2025-07-29 14:41] VITALS: BP 148/100; PULSE 85; RESP 18; TEMP 36.8; O2SAT 96
== END 2025-07-29 14:42 | disposition home or self-care (01) ==
PROVIDERS: Emergency Provider Student in an Organized Health Care Education/Training Program; PCP Family Medicine
DX: F10.129 Alcohol abuse with intoxication, unspecified (principal); I10 Essential (primary) hypertension; F14.90 Cocaine use, unspecified, uncomplicated; Y90.9 Presence of alcohol in blood, level not specified; Z87.820 Personal history of traumatic brain injury
CPT/HCPCS: 36415; 70450; 72125; 80053; 80307; 81003; 82010; 82248; 82947; 83735; 84484; 85025; 85610; 93005; 99285; S9485

== ENCOUNTER → 2025-07-28 13:30 | Outpatient (BNV) | payer OTHER, SELFPAY | PROVIDERS: Emergency Provider Student in an Organized Health Care Education/Training Program; PCP Family Medicine; Visit Provider Internal Medicine Cardiovascular Disease | DX: R41.82 Altered mental status, unspecified (principal) | CPT/HCPCS: 93010 ==

== ENCOUNTER → 2025-07-28 15:13 | Outpatient (BNV) | payer OTHER, SELFPAY | PROVIDERS: PCP Family Medicine; Visit Provider Radiology Diagnostic Radiology | DX: F10.129 Alcohol abuse with intoxication, unspecified (principal) | CPT/HCPCS: 70450; 72125 ==